=== PATIENT | male | born 1965 | race Caucasian/White ===

== ENCOUNTER 2020-11-16 10:06 | Outpatient (CLI) | payer BC, SELFPAY ==
--- NOTE | ~2020-11-16 | XR_ITS ---
EXAMINATION: XR barium swallow modified DATE: 11/16/2020 11:19 INDICATION: Diverticulitis of the esophagus, acquired TECHNIQUE: Modified barium esophagram was performed by myself to administered fluoroscopy, in conjun ction with speech pathologist who administered barium in varying consistencies as per speech patholog ist documentation. This was recorded on tape. A single fluoroscopic spot image was recorded. The DAP for this procedure was 1.464 Gycm2. Fluoroscopy exposure time was 2 minutes. FINDINGS: Oral stage: Adequate function. Pharyngeal phase: Adequate function. Laryngeal penetration: None. Aspiration: None. Laryngeal sensitivity: Present. IMPRESSION: Normal modified barium swallow. Please refer to speech pathologist findings and specific feeding recommendations. Reviewed, dictated and finalized at location A.
--- NOTE | 2020-11-18 08:38 | STOPEVAL ---
NOVEMBER 16, 2020 MODIFIED BARIUM SWALLOW EVALUATION: Thank you for referring Mello Herbert to [facility]. Dr Rishabh PINTO Fax #: [phone] Outpatient Past Medical History Past Medical History Source of Past Medical History Patient Gastrointestinal History Hx Crohn's Disease Yes Modified Barium Swallow Evaluation Recent Swallowing History Reports Dysphagia Yes: dry & stringy foods get caught Onset of Dysphagia 2 years ago History of Dysphagia No History of Pneumonia No Reported Difficult Consistencies Solids Intake Method Prior to Swallow Oral Evaluation Diet Prior to Swallow Evaluation Regular, Level 7 Liquid Consistency Prior to Swallow Thin (0) Evaluation Consistency Solid Consistency Method of Presentation Spoon Oral Preparatory Symptoms None Oral Phase Symptoms None Pharyngeal Phase Symptoms Within Functional Limits, Laryngeal Penetration Severity of Vallecular Residue None - 0% No Residue Severity of Pyriform Sinus Residue None - 0% No Residue 8 Point Laryngeal Penetration-Aspiration Material Does Not Enter Airway Scale Cervical/Esophageal Symptoms None Mixed Consistency Method of Presentation Spoon Oral Preparatory Symptoms None Oral Phase Symptoms None Pharyngeal Phase Symptoms None Severity of Vallecular Residue None - 0% No Residue Severity of Pyriform Sinus Residue None - 0% No Residue 8 Point Laryngeal Penetration-Aspiration Material Does Not Enter Airway Scale Cervical/Esophageal Symptoms None Pureed Consistency Method of Presentation Spoon Oral Preparatory Symptoms None Oral Phase Symptoms None Pharyngeal Phase Symptoms None Severity of Vallecular Residue None - 0% No Residue Severity of Pyriform Sinus Residue None - 0% No Residue 8 Point Laryngeal Penetration-Aspiration Material Does Not Enter Airway Scale Cervical/Esophageal Symptoms None Thin Uncontrolled 2 Method of Presentation Straw Oral Preparatory Symptoms None Oral Phase Symptoms None Pharyngeal Phase Symptoms Within Functional Limits, Laryngeal Penetration Severity of Vallecular Residue None - 0% No Residue Severity of Pyriform Sinus Residue None - 0% No Residue 8 Point Laryngeal Penetration-Aspiration Material Enters the Airway, Scale Remains Above Vocal Folds, is Ejected Cervical/Esophageal Symptoms None Thin Uncontrolled 1 Method of Presentation Cup Oral Preparatory Symptoms None Oral Phase Symptoms None Pharyngeal Phase Symptoms Within Functional Limits, Laryngeal Pe
== END 2020-11-16 10:07 | disposition home or self-care (01) ==
PROVIDERS: PCP Family Medicine; Visit Provider Otolaryngology
DX: K22.5 Diverticulum of esophagus, acquired (principal)
CPT/HCPCS: 92611

== ENCOUNTER 2021-01-11 08:04 | Outpatient (CLI) | payer BC, SELFPAY ==
--- NOTE | ~2021-01-11 | MR_ITS ---
EXAMINATION: MR lumbar spine wo con DATE: 01/11/2021 09:01 INDICATION: Lumbago with sciatica. Low back pain, occasional bilateral leg pain and unsteady gait. TECHNIQUE: Magnetic resonance imaging (MRI) of the lumbar spine was performed without intravenous con trast. Sequences included sagittal T2-weighted FSE, sagittal T2-weighted FS FSE, sagittal T1-weighted FSE, and axial T2-weighted FSE. COMPARISON: None FINDINGS: There is straightening of the normal lordosis in the mid to upper lumbar spine. Vertebral body height s are normal. Mild disc desiccation, moderate disc height loss an annular fissure at L5-S1. There wer e mild fibrofatty degenerative endplate changes at both sides of L5-S1. Marrow signal is otherwise no rmal. The conus medullaris terminates at L1. There is normal signal in the caudal spinal cord. There is a 10 x 8 mm fluid signal probably dilated tubular structure extending 3.2 cm craniocaudally along the anterior margin of L2 between the aorta and superior vena cava likely representing either a venou s varix or dilated lymphatic. Paravertebral soft tissues are otherwise unremarkable. The following di sc levels are specifically discussed: T12-L1: The disc does not extend beyond the endplate margin. There is minimal right facet joint osteo arthritis. There is no neural foraminal stenosis. There is no central canal stenosis. L1-L2: Disc is minimally bulging. There is minimal bilateral facet joint osteoarthritis. There is no neural foraminal stenosis. There is no central canal stenosis. L2-L3: Disc is minimally bulging. There is mild bilateral facet joint osteoarthritis. There is no christian ral foraminal stenosis. There is no central canal stenosis. L3-L4: Disc is mildly bulging. There is mild bilateral facet joint osteoarthritis. There is mild bila teral neural foraminal stenosis. There is minimal central canal stenosis. L4-L5: Disc is mildly bulging. There is mild bilateral facet joint osteoarthritis. There is mild bila teral neural foraminal stenosis. There is minimal central canal stenosis with mild narrowing of the l eft and right lateral recesses. L5-S1: Annular fissure with broad-based disc extrusion extending from foraminal zone to foraminal zon e with disc material extending couple millimeters cephalad and caudal to the level of the endplates. There is mild to moderate bilateral facet joint osteoarthritis. There is moderate bilateral neural fo raminal stenosis. There is mild central canal stenosis. There is also mild narrowing of the left and right lateral recesses with mass effect upon the traversing bilateral S1 nerve roots. IMPRESSION: 1. Moderate spondylosis with annular fissure and disc extrusion at L5-S1 and minimal to mild spondylo sis in the more cephalad lumbar spine. Reviewed, dictated and finalized at location A. IMPRESSION: 1. Moderate spondylosis with annular fissure and disc extrusion at L5-S1 and mi nimal to mild spondylosis in the more cephalad lumbar spine.
--- NOTE | ~2021-01-11 | MR_ITS ---
EXAMINATION: MR cervical spine wo con DATE: 01/11/2021 08:58 INDICATION: Cervicalgia TECHNIQUE: Magnetic resonance imaging (MRI) of the cervical spine was performed without intravenous c ontrast. Sequences included sagittal T2-weighted FSE, sagittal T2-weighted FS FSE, sagittal T1-weight ed FSE, axial MERGE and axial T2-weighted FSE. COMPARISON: None FINDINGS: Bone alignment is normal. Vertebral body heights are normal. Bone marrow signal intensity is normal . Mild disc height loss with annular fissure and prominent posterior disc extrusion at C6-C7. This re sults in severe central canal stenosis will be further detailed below. The cord is deformed and with subtle increased signal at this level. Remaining cord signal intensity is otherwise normal. The follo wing disc levels are specifically discussed: C2-C3: The disc does not extend beyond the endplate margin. There is no uncovertebral joint osteoarth ritis. There is mild left facet joint osteoarthritis. There is no neural foraminal stenosis. There is no central canal stenosis. C3-C4: The disc does not extend beyond the endplate margin. There is mild bilateral uncovertebral gilberto nt osteoarthritis. There is mild left facet joint osteoarthritis. There is no neural foraminal stenos is. There is no central canal stenosis. C4-C5: The disc does not extend beyond the endplate margin. There is mild left and minimal right unco vertebral joint osteoarthritis. There is moderate bilateral facet joint osteoarthritis. There is mild bilateral neural foraminal stenosis. There is no central canal stenosis. C5-C6: The disc does not extend beyond the endplate margin. There is mild bilateral uncovertebral gilberto nt osteoarthritis. There is mild to moderate right and moderate left facet joint osteoarthritis. Ther e is mild bilateral neural foraminal stenosis. There is no central canal stenosis. C6-C7: Annular fissure and large eccentric to the left disc extrusion which fills the left lateral re cess where it measures 11 in craniocaudal and 7 mm AP. On sagittal imaging the extrusion extends with significantly smaller cross-sectional area across the midline to the right subarticular zone. There is mild left and minimal right uncovertebral joint osteoarthritis. There is mild left and mild to mod erate right facet joint osteoarthritis. There is old right and moderate left neural foraminal stenosi s. There is severe central canal stenosis. C7-T1: The disc does not extend beyond the endplate margin. There is no uncovertebral joint osteoarth ritis. There is mild right and mild to moderate left facet joint osteoarthritis. There is no neural f oraminal stenosis. There is no central canal stenosis. IMPRESSION: 1. Annular fissure and large eccentric to the left disc extrusion at C6-C7 resulting in severe centra l canal stenosis with subtle increased cord fluid signal intensity. Given the cord signal changes and the ongoing neurologic symptoms would recommend urgent neurosurgical consultation. Dr. Mirnada disc ussed these findings with Stephanie reis at 10:25 AM. 2. Otherwise minimal to mild cervical spondylosis. Reviewed, dictated and finalized at location A. IMPRESSION: 1. Annular fissure and large eccentric to the left disc extrusion at C6-C7 resu lting in severe central canal stenosis with subtle increased cord fluid signal intensity. Given the cord signal changes and the ongoing neurologic symptoms wo uld recommend urgent neurosurgical consultation. Dr. Miranda discussed these f indings with Stephanie reis at 10:25 AM. 2. Otherwise minimal to mild cervical spondylosis.
== END 2021-01-11 08:05 ==
PROVIDERS: PCP Family Medicine; Visit Provider Nurse Practitioner Family
DX: M54.40 Lumbago with sciatica, unspecified side (principal); M47.892 Other spondylosis, cervical region; M47.896 Other spondylosis, lumbar region
CPT/HCPCS: 72141; 72148

== ENCOUNTER 2021-05-29 08:54 | Outpatient (RCR) | payer BC, SELFPAY ==
[2021-05-29 13:34] VITALS: BP 137/84; PULSE 82; RESP 16; TEMP 36.6; O2SAT 99
[2021-05-29] MEDS: diphenhydrAMINE HCl CAP 25 MG CAPSULE PO (13:36)
[2021-05-29] MEDS: FAMOTIDINE 20 MG TABLET PO (13:36)
[2021-05-29 14:59] VITALS: BP 116/81; PULSE 85; O2SAT 100
== END 2021-05-29 17:00 ==
LOC: AMCINF 08:54
PROVIDERS: PCP Nurse Practitioner Family; Visit Provider Internal Medicine Hematology & Oncology
DX: U07.1 COVID-19 (principal); I10 Essential (primary) hypertension; J44.9 Chronic obstructive pulmonary disease, unspecified; D84.9 Immunodeficiency, unspecified
CPT/HCPCS: A9270; M0247

== ENCOUNTER 2021-12-14 08:02 | Emergency (ER) | payer BC, SELFPAY ==
--- NOTE | 2021-12-14 08:08 | ED.EAR ---
HPI - Ear Problem General Chief complaint: Ear Stated complaint: ear pain Time Seen by Provider: 12/14/21 08:21 Source: patient and RN notes reviewed Mode of arrival: ambulatory Limitations: no limitations History of Present Illness HPI Narrative: 56-year-old male presents concern for left ear pain. He reports ear pain started yesterday. He went to the dentist yesterday and mentioned the pain to his dentist just in case the pain could be originating from his teeth, his dentist says there is no issue with his teeth. He reports he has been having some sinus pressure, reports that has been going on only a couple of days. He denies fever, body aches, chills, sweats. He denies drainage from the ear. He denies cough, shortness of breath. He denies known sick contacts. He reports he takes Singulair for allergies, he has taken Tylenol for his recent symptoms. MD Complaint: ear pain Related Data Home Medications Medication Instructions Recorded Confirmed cholecalciferol (vitamin D3) 50 50 mcg PO DAILY 11/02/19 12/14/21 mcg (2,000 unit) capsule adalimumab 40 mg/0.8 mL 40 mg subcut . Every 2 weeks 07/20/20 12/14/21 subcutaneous syringe kit (Humira) lansoprazole 15 mg capsule,delayed 30 mg PO DAILY 11/02/20 12/14/21 release (Prevacid) Allergies Allergy/AdvReac Type Severity Reaction Status Date / Time latex Allergy Mild unknown Verified 12/14/21 08:09 Review of Systems Review of Systems: CONSTITUTIONAL: Denies malaise, chills, sweats, or fever. EYES: Denies visual changes, redness, or discharge. ENT: Reports rhinorrhea, congestion. Denies sinus pain, and sore throat. Reports left ear pain CARDIOVASCULAR: Denies chest pain, palpitations, or edema. RESPIRATORY: Denies cough. Denies dyspnea. GASTROINTESTINAL: Denies abdominal pain, nausea, vomiting, diarrhea SKIN: Denies rash or itching. MUSCULOSKELETAL: Denies myalgia. NEUROLOGIC: Denies headache. All systems reviewed & are unremarkable except as noted in HPI and below PMFSH Past Medical History Medical History (Updated 12/14/21 @ 08:29 by Kimber Baird NP) Acne vulgaris Acute bronchitis Altered gait BMI 26.0-26.9,adult BMI 29.0-29.9,adult BMI 30.0-30.9,adult Chronic anxiety COVID-19 (05/24/21) Crohn's disease EGD and colonoscopy on 12/30/2020 Dysphagia Encounter for prostate cancer screening Essential (primary) hypertension GERD (gastroesophageal reflux disease) Hypogonadism male Insomnia Iron deficiency anemia, unspecified Lumbago with sciatica Lumbago without sciatica Male erectile dysfunction, unspecified Mild intermittent asthma in adult without complication Obesity (BMI 30.0-34.9) Radiculitis, cervical C6-C7 cervical disc replacement on 02/16/2021 Recurrent canker sores Tinea cruris UTI (urinary tract infection) Vitamin B12 deficiency anemia Vitamin D insufficiency Family History Family History Father Family history of chronic obstructive pulmonary disease, Onset Age: 78 Mother Family history of chronic obstructive pulmonary disease, Onset Age: 78 Grandparent Family history of chronic obstructive pulmonary disease, Onset Age: 65 Sibling Family history of lung cancer, Onset Age: 42 Social History Social History Smoking status: Never smoker Alcohol intake: never Substance use: never Substance use type: does not use Comments At time of signature, agree with nursing past medical, surgical, social and family history. There is no relevant family history pertinent to the presenting complaint Exam Narrative: GENERAL: Well-appearing, well-nourished, and in no acute distress. HEAD: Normocephalic EYES: PERRLA, conjunctivae clear ENT: Nares clear, left-sided turbinates edematous, clear discharge. Mucous membranes moist. TM pearly nieves with dull light reflex on the left, sharp li
[2021-12-14 08:11] VITALS: BP 156/101; PULSE 70; RESP 16; TEMP 36.1; O2SAT 100
== END 2021-12-14 08:40 | disposition home or self-care (01) ==
PROVIDERS: Emergency Provider Nurse Practitioner; PCP Family Medicine
DX: H69.92 Unspecified Eustachian tube disorder, left ear (principal); K50.90 Crohn's disease, unspecified, without complications; I10 Essential (primary) hypertension; K21.9 Gastro-esophageal reflux disease without esophagitis; E55.9 Vitamin D deficiency, unspecified; J45.909 Unspecified asthma, uncomplicated; Z86.16 Personal history of COVID-19; E53.8 Deficiency of other specified B group vitamins; D50.9 Iron deficiency anemia, unspecified
CPT/HCPCS: 99213; G0463

== ENCOUNTER 2024-05-11 09:06 | Emergency (ER) | payer BC, SELFPAY ==
--- NOTE | ~2024-05-11 | XR_ITS ---
XR hand RT min 3V Ordering provider: Jason Hernandez APRN History: . puncture wound X YESTERDAT 4TH METACARPAL AREA . Comparison: None. FINDINGS: BONES: No acute fracture or dislocation. JOINT SPACES: Normal. SOFT TISSUES: Normal. IMPRESSION: No acute osseous abnormality right hand. Reviewed, dictated and finalized at location A. RCALENDER OPERATOR HELPER
[2024-05-11 09:42] VITALS: BP 188/98; PULSE 85; RESP 16; TEMP 37.1; O2SAT 98
[2024-05-11 09:57] VITALS: BP 168/103; PULSE 77; RESP 15; O2SAT 96
--- NOTE | 2024-05-11 10:46 | ED.WOUNDLAC ---
HPI - Wound/Laceration General Chief Complaint: Wound/Laceration Stated Complaint: nail puncture with redness right hand Time Seen by Provider: 05/11/24 10:18 History of Present Illness HPI narrative: 58 y/o male presents with right hand pain that started this morning. patient states he was working on rehabbing a home and a nail punctured his right hand. patient cleaned it out but states he woke up this morning with redness to the area and increased pain. patient went to and was sent to the ER for further evaluation r/t red streaks up the arm. patient has crohns and is immunocompromised r/t treatment. patient denies fevers. patient is left hand dominant. no other complaints. Onset (ago): day(s) (1) Location: other (right hand) Extremity Location: Right: hand Related Data Home Medications ?Medication ?Instructions ?Recorded ?Confirmed ?Last Taken ?Type valacyclovir 1 gram tablet 1,000 mg PO TID 01/26/23 12/16/23 Unknown History (Valtrex) omeprazole magnesium 20 mg 40 mg PO . q.a.m. 12/16/23 12/16/23 Unknown History tablet,delayed release Allergies Allergy/AdvReac Type Severity Reaction Status Date / Time latex Allergy Mild unknown Verified 05/11/24 09:57 Review of Systems Review of Systems: All systems reviewed & are unremarkable except as noted in HPI and below Integumentary/Breasts: Skin/Breast: Reports erythema PMFSH Past Medical History Medical History (Updated 05/11/24 @ 12:25 by Jason Hernandez APRN) Hyperglycemia Mixed hyperlipidemia cholesterol 139, HDL 45, triglycerides 265, LDL 64th ratio of 3.1 on 12/09/2023. Acute sinusitis, unspecified BMI 27.0-27.9,adult Fatigue Contusion of leg, right Herpes zoster (01/25/23) left upper face treated by flamer sealer with Valtrex with no ocular involvement on 01/26/2023. Renal insufficiency (11/13/22) BUN 16 with creatinine 1.50 with GFR 54 on 11/13/2022. BUN 15, creatinine 1.36 with GFR 60 on 03/25/2023. 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 Normal vitamin B12 1270 with folic acid 13.8 on 03/25/2023. Overweight (BMI 25.0-29.9) BMI 28.0-28.9,adult Prepatellar bursitis of right knee (~01/15/22) hospitalized 01/24 - 01/27/2022 Knee pain, acute BMI 30.0-30.9,adult Obesity (BMI 30.0-34.9) Acute bronchitis COVID-19 (05/24/21) BMI 29.0-29.9,adult Lumbago without sciatica Altered gait Recurrent canker sores Radiculitis, cervical C6-C7 cervical disc replacement on 02/16/2021 Lumbago with sciatica BMI 26.0-26.9,adult Mild intermittent asthma in adult without complication Tinea cruris UTI (urinary tract infection) Acne vulgaris Encounter for prostate cancer screening PSA 0.42 on 05/05/2022. Vitamin D insufficiency level slightly low at 29 on 05/05/2022. Level normal at 35 on 03/25/2023. Vitamin B12 deficiency anemia level normal at 826 on 05/05/2022. Level normal 1270 with hemoglobin 16.4 and folic acid 13.8 on 03/25/2023. Level normal at 622 with hemoglobin 18.1 on 09/11/2023. Dysphagia Insomnia Iron deficiency anemia, unspecified Iron 106 with 37% saturation and ferritin 90 with hemoglobin 14.9 05/05/2022. Iron 105 with 27% saturation and ferritin low at 16 with hemoglobin 16.4 on 03/25/2023. Hemoglobin elevated at 18.1 with iron 102 with 28% saturation and ferritin 64 on 09/11/2023. Chronic anxiety Male erectile dysfunction, unspecified GERD (gastroesophageal reflux disease) Hypogonadism male total testosterone 729 with free testosterone 223 on 05/05/2022. Testosterone 1194 with free testosterone elevated at 362.7 on 03/25/2023. Crohn's disease EGD and colonoscopy on 12/30/2020. Normal colonoscopy 09/28/2022. History of anastomosis. Essential (primary) hypertension Family History Family History Father Family history of chronic obstructive pulmonary disease, Onset Age: 78 Mother Family history of chronic obstructive pulmonary disease, Onset Age: 78 Grandparent Family history of chronic obstructive pulmonary disease, Onset Age: 65 Sibling Family history of lung cancer, Onset Age: 42 Social History Social History Smoking status: Never smoker Alcohol intake: never Substance use: never Substance use type: does not use Lack of Transportation: No Current Housing: Decline to Answer Concerned About Future Housing: Decline to Answer Difficulty Paying Gas/Electric Bills: Decline to Answer Difficulty Paying for Meds: Decline to Answer Currently Unemployed: Decline to Answer Education: Decline to Answer Difficulty w/ Childcare or Family Care: Decline to Answer Exam Const: General: healthy appearing HENMT: Head: normal to inspection Eyes: Conjunctivae: conjunctivae normal Neck: Neck: normal visual inspection Chest: Chest palpation & inspection: normal inspection of the chest Resp: Effort & Inspection: normal respiratory effort Cardio: Rate: regular rate GI: GI Palp: Yes Soft to palpation Back/Spine/Pelvis: Back: no CVA tenderness Skin: Rashes: no rashes (redness with some streaks up the arm) Wounds: wounds noted (small puncture wound at mcp to right 4th digit) Neuro: General: patient oriented x3 Extrem: Other: redness to right dorsal aspect of right hand Psych: Affect: normal affect Course Course Emergency Course: will check basic labs, iv rocephin and right hand x-ray Reevaluation(s) Reevaluation #1: patient states pain is better. will send home on oral abx and pain medication Date: 05/11/24 Time: 12:22 Vital Signs Vital signs: Vital Signs Temperature 37.1 C 05/11/24 09:42 Pulse Rate 85 05/11/24 09:42 Respiratory Rate 16 05/11/24 09:42 Blood Pressure 188/98 H 05/11/24 09:42 Pulse Oximetry 98 05/11/24 09:42 Temperature 37.1 C 05/11/24 09:42 Pulse Rate 80 05/11/24 11:20 Respiratory Rate 15 05/11/24 11:20 Blood Pressure 164/104 H 05/11/24 11:20 Pulse Oximetry 96 05/11/24 11:20 MDM - Wound/Laceration MDM Narrative Medical decision making narrative: patient labs are wnl. patient given iv rocephin. will send home on oral bactrim, pain medication and close f/u with pcp Differential Diagnosis Differential diagnosis: Likely abscess and other (cellulitis vs osteo vs nec fasciatis ) Medical Records Medical records narrative: Spoke with patient's PCP. Dr. Santos is agreeable with plan. will discharge home on doxycycline and norco 10 mg. Lab Data 05/11/24 11:17 05/11/24 11:17 Labs: Lab Results 05/11/24 Range/Units 11:17 WBC 10.8 H (4.5-10.0) K/mm3 RBC 5.27 (4.6-6.20) M/mm3 Hgb 15.5 (14.0-18.0) g/dL Hct 47.9 (42.0-52.0) % MCV 90.9 (80-100) fl MCH 29.4 (26-34) pg MCHC 32.4 (32-36) g/dl RDW 13.2 (11.5-14.5) % Plt Count 209 (150-375) k/mm3 MPV 9.5 (7.4-10.4) fl Immature Gran % (Auto) 0.7 H (0-0.5) % Neut % (Auto) 76.1 H (45.5-73.1) % Lymph % (Auto) 13.1 L (18.3-44.2) % [place] % (Auto) 8.6 H (2.6-8.5) % Eos % (Auto) 1.0 (0-4.4) % Baso % (Auto) 0.5 (0.2-1.2) % Lymph # (Auto) 1.41 (0.9-3.2) K/mm3 [place] # (Auto) 0.9 H (0.1-0.6) K/mm3 Eos # (Auto) 0.1 (0-0.3) K/mm3 Baso # (Auto) 0.1 (0.0-0.1) K/mm3 Abs Immat Gran (auto) 0.08 H (0.00-0.031) K/mm3 Absolute Neuts (auto) 8.2 H (1.3-6.7) K/mm3 Absolute Nucleated RBC 0.000 (0.0-0.012) K/mm3 Nucleated RBC % 0.0 (0.0-0.2) % Sodium 140 (137-145) mmol/L Potassium 3.6 (3.4-5.0) mmol/L Chloride 104 (98-107) mmol/L Carbon Dioxide 33 H (22-30) mmol/L Anion Gap 3 L (4-12) mmol/L BUN 14 (9-20) mg/dL Creatinine 1.20 (0.7-1.3) mg/dL Estim Creat Clear Calc 69 ml/min Estimated GFR > 60 (59 - ) Glucose 88 (65-110) mg/dL Calcium 8.5 (8.4-10.2) mg/dL Total Bilirubin 1.4 H (0.2-1.3) mg/dL AST 36 (17-59) U/L ALT 22 (6-50) U/L Alkaline Phosphatase 78 (38-126) U/L Total Protein 7.0 (6.3-8.2) g/dL Albumin 4.2 (3.5-5.1) g/dL Imaging Data Radiologist's impression: normal right hand Discharge Plan Discharge Clinical Impression: Cellulitis of hand, right, Puncture wound of hand, right Patient Disposition: Home, Self-Care Condition: Stable Instructions: Antibiotic Form, Cellulitis (ED) Additional Instructions: TAKE MEDICATIONS PRESCRIBED RETURN FOR WORSENING SYMPTOMS CALL PRIMARY CARE DOCTOR TODAY TO SCHEDULE CLOSE FOLLOW-UP Patient Language: German Prescriptions: New doxycycline hyclate 100 mg capsule 100 mg PO Q12H Qty: 20 0RF hydrocodone-acetaminophen 10-325 mg tablet 1 tablet PO Q4H PRN (Reason: pain) Qty: 12 0RF No Action nystatin 100,000 unit/gram powder 1 applic topical BID Qty: 60 11RF Rx Instructions: apply to skin folds twice daily as needed for yeast mupirocin 2 % ointment 1 applic topical BID Qty: 15 0RF omeprazole magnesium 20 mg tablet,delayed release (DR/EC) 40 mg PO . q.a.m. Patient Comments: [id number] testosterone cypionate [Depo-Testosterone] 200 mg/mL oil 100 mg IM . twice weekly Qty: 12 1RF albuterol sulfate [ProAir HFA] 90 mcg/actuation HFA aerosol inhaler 2 inh inhalation Q4H PRN (Reason: shortness of breath or wheezing) Qty: 8.5 1RF clotrimazole-betamethasone 1-0.05 % cream 1 applic topical BID 14 Days Qty: 30 3RF Rx Instructions: apply to rash in the groin for up to 2 weeks at a time (DME) BD Insulin Syringe 1 mL 25 x 1 syringe See Rx Instructions .Route Qty: 50 0RF Rx Instructions: use with vitamin B12 injection 1 cc every 2 weeks IM (DME) BD Regular Bevel [place] 21 gauge x 1 1/2 needle See Rx Instructions .Route Qty: 25 3RF Rx Instructions: As directed valacyclovir [Valtrex] 1 gram tablet 1,000 mg PO TID Patient Comments: treated by flamer sealer 01/26/2023 with onset on 01/25/2023. montelukast [Singulair] 10 mg tablet 10 mg PO QHS Qty: 30 11RF ondansetron HCl 8 mg tablet 8 mg PO TID PRN (Reason: nausea and vomiting) Qty: 60 11RF diphenoxylate-atropine [Lomotil] 2.5-0.025 mg tablet 1 tablet PO QID PRN (Reason: diarrhea) Qty: 120 5RF alprazolam [Xanax] 1 mg tablet 1 mg PO BID PRN (Reason: anxiety) Qty: 60 5RF tadalafil 20 mg tablet 20 mg PO DAILY PRN (Reason: sexual activity) Qty: 90 1RF Rx Instructions: Administer approximately 30-45min before sexual activity. Do not use more than 1 dose per 24hr [employer] pay with good Rx discount for $47.40 for 90 tablets irbesartan 300 mg tablet 300 mg PO DAILY Qty: 30 11RF amlodipine 5 mg tablet 5 mg PO DAILY Qty: 30 11RF acetaminophen-codeine 300-30 mg tablet 1 tablet PO Q4H PRN (Reason: pain) Qty: 150 5RF zolpidem [Ambien] 10 mg tablet 10 mg PO .qhs PRN (Reason: insomnia) Qty: 30 5RF cyanocobalamin (vitamin B-12) 1,000 mcg/mL solution 1,000 mcg IM . Q 2 weeks Qty: 30 1RF Rx Instructions: [employer] pay with good Rx discount $29.28 Follow-up/Referrals: Tip Armenta MD [Primary Care Provider] - Time of Disposition: 12:31
[2024-05-11] MEDS: MORPHINE SULFATE (*CRX) 4 MG/ML INJ IV PUSH (11:13)
[2024-05-11] MEDS: cefTRIAXone 2 GM/NS 100 ML 2 GM/100 ML BAG IVPB (11:18)
[2024-05-11 11:20] VITALS: BP 164/104; PULSE 80; RESP 15; O2SAT 96
[2024-05-11 11:24] LABS: Basophils Absolute Auto 0.1 K/mm3 (0.0-0.1); Basophils Percent Auto 0.5 % (0.2-1.2); Eosinophils Absolute Auto 0.1 K/mm3 (0-0.3); Hematocrit 47.9 % (42.0-52.0); Hemoglobin 15.5 g/dL (14.0-18.0); Immature Granulocyte Absolute 0.08 K/mm3 (0.00-0.031); Immature Granulocyte Percent A 0.7 % (0-0.5); Lymphocytes Absolute Auto 1.41 K/mm3 (0.9-3.2); Lymphocytes Percent Auto 13.1 % (18.3-44.2); Mean Corpuscular HGB Conc 32.4 g/dl (32-36); Mean Corpuscular Hemoglobin 29.4 pg (26-34); Mean Corpuscular Volume 90.9 fl (80-100); Mean Platelet Volume 9.5 fl (7.4-10.4); Monocytes Absolute Auto 0.9 K/mm3 (0.1-0.6); Monocytes Percent Auto 8.6 % (2.6-8.5); Neutrophils Absolute Auto 8.2 K/mm3 (1.3-6.7); Neutrophils Percent Auto 76.1 % (45.5-73.1); Platelet Count Result 209 k/mm3 (150-375); Red Blood Count 5.27 M/mm3 (4.6-6.20); Red Cell Distribution Width 13.2 % (11.5-14.5); White Blood Count 10.8 K/mm3 (4.5-10.0)
[2024-05-11 11:38] LABS: Alanine Aminotransferase 22 U/L (6-50); Albumin Level 4.2 g/dL (3.5-5.1); Alkaline Phosphatase 78 U/L (38-126); Anion Gap 3 mmol/L (4-12); Aspartate Amino Transferase 36 U/L (17-59); Bilirubin,Total 1.4 mg/dL (0.2-1.3); Blood Urea Nitrogen 14 mg/dL (9-20); Calcium 8.5 mg/dL (8.4-10.2); Carbon Dioxide 33 mmol/L (22-30); Chloride 104 mmol/L (98-107); Estimated CRCL calculation 69 ml/min; Estimated Glomerular Filt Rate > 60; Glucose 88 mg/dL (65-110); Potassium 3.6 mmol/L (3.4-5.0); Sodium 140 mmol/L (137-145)
[2024-05-11] MEDS: HYDROcodone/acetaminophen (*CRX) 10-325 MG TABLET 1 TAB PO (11:45)
[2024-05-11 12:37] VITALS: BP 156/91; PULSE 76; RESP 16; O2SAT 98
--- OUTSIDE RECORDS SUMMARY | 2024-05-18 22:11 | XMS_ITS | Encounter Summary ---
Author Organization [facility] Address [address] [facility] [address] [place] [address] Phone Care Team Providers Care Biztalk Consultant Name Role Phone Tip Armenta MD Primary Care Provider [phone] Eleanor Ramon MD Unavailable [phone] Encounter Details Date Type Department Care Team (Late st Contact Info) Description 05/06/2024 8:30 AM OCCUPATIONAL THERAPY ASSIST Office Visit [facility] Gastroenterology [address] [facility] [address] [place] [address] Nikolay Boucher MD [address] [place] [address] Crohn's disease of both small and large intestine with intestinal obstruction (HCC) (Primary Dx); High risk medications (not anticoagulants) long-term use Social History Tobacco Use Types Packs/Day Years Used Date Smoking Tobacco: Never Smokeless Tobacco: Never AUDIT-C Answer Date Recorded Q1: How often do you have a drink containing alcohol? Never 11/05/2023 Q2: How many drinks containi ng alcohol do you have on a typical day when you are drinking? Patient does not drink Q3: How often do you have si x or more drinks on one occasion? Never 11/05/2023 Personal Safety Answer Date Recorded Have you ever been in or are you currently in a harmful physical or emotional relationship or is someone making you feel afraid or unsafe? Denies 09/28/2022 Sex and Gender Information Value Date Recorded Sex Assigned at Not on file Legal Sex Male 1:20 AM OCCUPATIONAL THERAPY ASSIST Gender Identity Not on file Sexual Orientation Not on file documented as of this encounter Last Filed Vital Signs Vital Sign Reading Time Taken Comments Blood Pressure 155/92 05/06/2024 8:52 AM OCCUPATIONAL THERAPY ASSIST Pulse 89 05/06/2024 8:52 AM OCCUPATIONAL THERAPY ASSIST Temperature 36.6 ??C (97.9 ??F) 05/06/2024 8:52 AM CS T Respiratory Rate - - Oxygen Saturation 99% 05/06/2024 8:52 AM OCCUPATIONAL THERAPY ASSIST Inhaled Oxygen Concentration - - Weight 95.7 kg (211 lb) 05/06/2024 8:52 AM OCCUPATIONAL THERAPY ASSIST Height 188 cm (6' 2 ) 05/06/2024 8:52 AM OCCUPATIONAL THERAPY ASSIST Body Mass Index 27.09 05/06/2024 8:52 AM OCCUPATIONAL THERAPY ASSIST documented in this encounter Progress Notes * Nikolay Boucher MD - 05/06/2024 8:30 AM CST Images from the original note were not included. [facility]PART[facility] OF MEDIC[facility] DIVISION OF GASTROENTEROLOGY Clinic Address: [address] [place] [address], [address] [place] [address] Mailing Address: [facility] [place], [place] [address] [place] [address] NAME: Mello Herbert : 1965 DOS: 05/06/2024 Primary Care Physician: Tip Armenta MD Chief complaint: crohn's HPI Mr. Herbert is a 58 y.o. male with stricturing ileocolonic Crohn's is here for follow up. Doing well. No change with adalimumab biosimilar. Diarrhea is baseline. Abdominal discomfort occasionally, unchanged for years. Patient Active Problem List Diagnosis Date Noted Healthcare maintenance 04/17/2023 Immunizations: Influenza annual Pneumococcus (Prevnar 20 x1 or Prevnar 13 followed by Pneumovax 8 weeks later, then Pneumovax in 5 years and again at age 64) Zoster HBV Covid Cervical cancer screening: routine follow up with bread racker Skin cancer screening: consider referral to dermatology to discuss screening strategy Bone health: DEXA: at diagnosis. Check vitamin D CRC screening: repeat q 2-3 years History of Crohn's disease Cellulitis 01/25/2022 Infection of right prepatellar bursa Prepatellar bursitis 01/24/2022 Stage 3a chronic kidney disease (HCC) 01/24/2022 Chronic hypertension 02/13/2021 Risk factors for obstructive sleep apnea 02/13/2021 Cervical disc disorder with myelopathy of mid-cervical region 02/09/2021 Added automatically from request for surgery [id number] Chronic diarrhea 07/15/2020 High risk medications (not anticoagulants) long-term use 07/15/2020 Vitamin B12 deficiency 08/18/2018 Overweight with body mass index (BMI) 25.0-29.9 12/20/2016 Abnormal level of blood mineral 10/12/2016 Chronic fatigue 10/12/2016 Cramp and spasm 10/12/2016 Crohn's disease of large intestine with other complication (HCC) 10/12/2016 Postsurgical malabsorption, not elsewhere classified 10/12/2016 Iron deficiency anemia 02/17/2015 Erythrocytosis 12/07/2014 PVT (portal vein thrombosis) 12/07/2014 Vitamin D deficiency 11/30/2014 Abdominal pain 12/15/2013 Mouth ulceration 12/15/2013 Nephrolithiasis 07/23/2013 Inguinal pain 07/23/2013 Arthralgia 09/25/2012 High risk medication use 07/10/2012 Hernia of anterior abdominal wall 03/13/2012 Crohn's disease of both small and large intestine (HCC) 08/16/2010 Year of diagnosis: 1989. Year symptoms began: 1989. Phenotype: Stricturing (B2) without perianal disease. Distribution: ileocolonic (L3) or ileal? without upper GI disease (L4). Extraintestinal manifestations: none. Complications: SBO. Prior surgeries: . 1989 ICR, meckels resection 2006 re-do ICR for anastomotic stricture ([facility]) 2010 re-do ICR for anastomotic stricture (Silvia) Prior treatments: prednisone, 6MP, infliximab. Current treatment: Humira. 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 Took 5 hours. Can't remember what meds Prednisone 2005 re-do ICR for anastomotic stricture ([facility]utch) 2009 re-do ICR for anastomotic stricture (Silvia) 2020 and demonstrated mucosal remission he patient has been treated with 6-MP (without response) methotrexate (without response) Remicade (with initial response, but discontinued in the context of severe pneumonia), and most recently on Humira. 09/28/2022 Colonoscopy mucosal remission Current Outpatient Medications: acetaminophen-codeine (TYLENOL with CODEINE #3) 300-30 mg per tablet, TAKE 1 TABLET BY MOUTH EVERY 4 HOURS NEEDED FOR PAIN, Disp: , Rfl: ALPRAZolam (XANAX) 1 mg tablet, TK 1/2 TO 1 T PO BID PRF ANXIETY, Disp: , Rfl: 5 amitriptyline (ELAVIL) 10 mg tablet, Take 1 tablet (10 mg total) by mouth nightly, Disp: , Rfl: amLODIPine (NORVASC) 5 mg tablet, Take 1 tablet (5 mg total) by mouth every morning, Disp: , Rfl: BD SAFETYGLIDE SYRINGE 3 mL 23 x 1 syringe, U UTD, Disp: , Rfl: 5 cholecalciferol (VITAMIN D-3) 50,000 unit capsule, Take 1 capsule (50,000 Units total) by mouth, Disp: , Rfl: CIALIS 20 mg tablet, TK 1 T PO QD PRN, Disp: , Rfl: 5 cyanocobalamin (Vitamin B-12) 1,000 mcg/mL injection, INJECT 1 ML Q 2 WEEKS UTD, Disp: , Rfl: 4 diphenoxylate-atropine (LOMOTIL) 2.5-0.025 mg per tablet, Take 1 tablet by mouth 3 (three) times a day as needed, Disp: , Rfl: 5 folic acid (FOLVITE) 1 mg tablet, Take 1 tablet (1 mg total) by mouth every morning, Disp: , Rfl: 3 hydroCHLOROthiazide (HYDRODIURIL) 25 mg tablet, Take 1 tablet (25 mg total) by mouth as needed, Disp: , Rfl: hyoscyamine (LEVSIN) 0.125 mg tablet, TAKE 1 TABLET(0.125 MG) BY MOUTH EVERY 6 HOURS NEEDED FOR CRAMPING OR DIARRHEA/ SPASMS, Disp: 120 tablet, Rfl: 2 Hyrimoz,CF, Pen 40 mg/0.4 mL pen injector, INJECT 1 PEN UNDER THE SKIN EVERY 14 DAYS, Disp: 0.8 mL,Rfl: 2 irbesartan (AVAPRO) 300 mg tablet, Take 1 tablet (300 mg total) by mouth every morning, Disp: , Rfl: lansoprazole (PREVACID) 15 mg capsule, Take 1 capsule (15 mg total) by mouth 2 (two) times a day, Disp: , Rfl: magnesium oxide,aspartate,citr 400 mg magnesium capsule, Take 1 capsule by mouth as needed , Disp: , Rfl: montelukast (SINGULAIR) 10 mg tablet, Take 1 tablet (10 mg total) by mouth as needed, Disp: , Rfl: 1 nystatin 100,000 unit/mL suspension, SWISH AND SWALLOW 5 ML BY MOUTH TWICE DAILY FOR 14 DAYS, Disp:140 mL, Rfl: 0 ondansetron (ZOFRAN) 8 mg tablet, Take 1 tablet (8 mg total) by mouth as needed, Disp: , Rfl: 5 sulfamethoxazole-trimethoprim (BACTRIM DS) 800-160 mg per tablet, Take 1 tablet by mouth nightly atbedtime, Disp: , Rfl: sulfuric acid-sulfonat. phenoL (DEBACTEROL) 30-50 % swab swab, For external use only; avoid contactwith eyes. Prior to application/treatment, the ulcerated mucosal area should be thoroughly dried. After drying, apply solution coated applicator swab directly to the ulcerated area (most patients experience a brief stinging sensation immediately) and hold the applicator in contact with the ulcer for 5 to 10 seconds using a rolling motion to completely cover the entire ulcer bed and rim. Thoroughly rinse out the mouth with water and spit out the rinse water. The stinging sensation and ulcer painwill subside almost immediately after the rinse., Disp: 24 each, Rfl: 0 testosterone cypionate (DEPO-TESTOTERONE) 200 mg/mL injection, INJ 1 ML IM Q WK, Disp: , Rfl: 5 zolpidem (AMBIEN) 10 mg tablet, Take 1 tablet (10 mg total) by mouth nightly as needed, Disp: , Rfl: 5 cyclobenzaprine (FLEXERIL) 5 mg tablet, Take 1 tablet (5 mg total) by mouth 3 (three) times a day as needed for muscle spasms, Disp: 90 tablet, Rfl: 0 gabapentin (NEURONTIN) 300 mg capsule, Take 1 capsule (300 mg total) by mouth 3 (three) times a day, Disp: 270 capsule, Rfl: 0 HYDROcodone-acetaminophen (NORCO) 7.5-325 mg per tablet, Take 1 tablet by mouth every 6 (six) hoursas needed for pain (Patient not taking: Reported on 05/06/2024), Disp: , Rfl: nebivoloL (BYSTOLIC) 5 mg tablet, Take 1 tablet (5 mg total) by mouth daily (Patient not taking: Reported on 05/06/2024), Disp: , Rfl: polyethylene glycol (GoLYTELY) 236-22.74-6.74 -5.86 gram solution, Drink 240 ml the day before yourColonoscopy - PLEASE FOLLOW PREP INSTRUCTIONS GIVEN BY DR MCLEAN OFFICE (Patient not taking: Reported on 05/06/2024), Disp: 240 mL, Rfl: 0 Allergies Allergen Reactions Latex Rash ROS As outlined in HPI. All other systems negative. Physical Exam Vital Signs BP 155/92 Pulse 89 Temp 36.6 ??C (97.9 ??F) Ht 188 cm (6' 2 ) Wt 95.7 kg (211 lb) SpO2 99% BMI 27.09 kg/m?? Body mass index is 27.09 kg/m??. Wt Readings from Last 10 Encounters: 05/06/24 95.7 kg (211 lb) 01/15/24 96.3 kg (212 lb 4.9 oz) 11/05/23 97.1 kg (214 lb) 04/04/23 100.5 kg (221 lb 9.6 oz) 12/07/22 97.5 kg (215 lb) 09/28/22 102.1 kg (225 lb) 07/09/22 102.1 kg (225 lb) 03/28/22 100.2 kg (220 lb 12.8 oz) 03/14/22 99.8 kg (220 lb) 02/21/22 99.3 kg (219 lb) [place] body weight: 82.2 kg (181 lb 3.5 oz) Adjusted ideal body weight: 87.6 kg (193 lb 2.1 oz) General: well appearing Eyes: no scleral icterus Mouth: moist mucous membranes Neck: supple, no lymphadenopathy CV: regular rate and rhythm, no murmurs Pulm: breathing comfortably on room air, clear to auscultation bilaterally Abd: soft, nontender, nondistended, normal bowel sounds Ext: warm and well perfused, no clubbing or cyanosis Neuro: No focal deficits, alert and awake Skin: Warm, dry, no rashes Psych: Normal mood and affect Results: I have reviewed labs. Labs Lab Results Component Value Date WBC 10.1 (H) 11/05/2023 HGB 16.7 11/05/2023 HCT 52.6 (H) 11/05/2023 MCV 94.1 11/05/2023 LABPLAT 213 11/05/2023 Lab Results Component Value Date SODIUM 137 11/05/2023 POTASSIUM 4.3 11/05/2023 CHLORIDE 100 11/05/2023 CO2 29 11/05/2023 BUNSER 15 11/05/2023 CREATININE 1.30 11/05/2023 GLUCOSE 115 11/05/2023 CALCIUM 9.3 11/05/2023 Lab Results Component Value Date PROT 7.9 11/05/2023 ALBUMIN 4.4 11/05/2023 BILITOT 0.9 11/05/2023 ALKPHOS 114 11/05/2023 AST 26 11/05/2023 ALT 27 11/05/2023 CRP Date Value Ref Range Status 11/05/2023 <3.0 <=10.0 mg/L Final 01/25/2022 21.2 (H) <=10.0 mg/L Final Comment: Testing performed by: [address] [id number] C-RP Date Value Ref Range Status 03/13/2023 3.4 <8.0 mg/L Final Erythrocyte sedimentation rate Date Value Ref Range Status 01/25/2022 14 1 - 20 mm/hr Final Comment: Testing performed by: [address] [id number] 01/20/2022 9 1 - 20 mm/hr Final Comment: Testing performed by: [address] [id number] Imaging None Endoscopy None Assessment and Plan: Problem List Items Addressed This Visit Crohn's disease of both small and large intestine (HCC) - Primary Remains in clinical remission on adalimumab. Fortunately no issues with the biosimilar. Continue indefinitely. Repeat colonoscopy next year for screening and close monitoring. He cannot afford to lose any more small bowel as this may lead him dependent on TPN or IVF. RTC 6 mos. High risk medications (not anticoagulants) long-term use All immunosuppressants increase the risk of infection so we recommend the patient get all availablevaccinations, including the pneumococcal vaccine, covid19 and annual influenza vaccine. We screen for TB and HBV prior to initiating an anti-TNF. We monitor CBC and HFP q 3 months for cytopenias and h epatotoxicity. Anti-TNFs may increase the risk for malignancy. The patient should get all age-appropriate cancer screening and in addition should follow with a state highway police officer for skin cancer screening. There may be a small risk of heart failure so any new HF symptoms would prompt an evaluation and likely discontinuation of therapy. Nikolay Boucher MD Dye Range Feeder My total encounter time on 05/06/2024 was 30 minutes which was spent in the activities documented in the note. This includes time spent prior to the visit and after the visit in direct care of the patient. This time does not include time spent in any separately reportable services. PATIONAL THERAPY ASSIST documented in this encounter Miscellaneous Notes * Assessment & Plan Note - Nikolay Boucher MD - 05/06/2024 9:25 PM OCCUPATIONAL THERAPY ASSIST Associated Problem(s): Crohn's disease of both small and large intestine (HCC) Remains in clinical remission on adalimumab. Fortunately no issues with the biosimilar. Continue indefinitely. Repeat colonoscopy next year for screening and close monitoring. He cannot afford to lose any more small bowel as this may lead him dependent on TPN or IVF. RTC 6 mos. PATIONAL THERAPY ASSIST * Assessment & Plan Note - Nikolay Boucher MD - 05/06/2024 9:23 PM OCCUPATIONAL THERAPY ASSIST Associated Problem(s): High risk medications (not anticoagulants) long-term use All immunosuppressants increase the risk of infection so we recommend the patient get all availablevaccinations, including the pneumococcal vaccine, covid19 and annual influenza vaccine. We screen for TB and HBV prior to initiating an anti-TNF. We monitor CBC and HFP q 3 months for cytopenias and h epatotoxicity. Anti-TNFs may increase the risk for malignancy. The patient should get all age-appropriate cancer screening and in addition should follow with a state highway police officer for skin cancer screening. There may be a small risk of heart failure so any new HF symptoms would prompt an evaluation and likely discontinuation of therapy. PATIONAL THERAPY ASSIST documented in this encounter Plan of Treatment Upcoming Encounters Date Type Department Care Team (Late st Contact Info) Description 05/22/2024 10:45 AM OCCUPATIONAL THERAPY ASSIST Hospital Encounter Endoscopy [id number] [place] [address] Nikolay Boucher MD [address] [place] [address] 05/22/2024 10:45 AM OCCUPATIONAL THERAPY ASSIST - 05/22/2024 11:15 AM OCCUPATIONAL THERAPY ASSIST Surgery Endoscopy [address] [place] [address] Nikolay Boucher MD [address] [place] [address] EGD Scheduled Procedures Name Priority Associated Diagnoses Date/Ti mo ESOPHAGOGASTRODUODENOSCOPY Crohn's disease of both small and large intestine with intestinal obstruction (HCC) 05/22/2024 10:45 AM OCCUPATIONAL THERAPY ASSIST documented as of this encounter Visit Diagnoses Diagnosis Crohn's disease of both small and large intestine with intestinal obstruction (HCC)- Primary High risk medications (not anticoagulants) long-term use Encounter for long-term (current) use of other medications Crohn's disease of both small and large intestine with intestinal obstruction (HCC) documented in this encounter Care Teams Biztalk Consultant Relationship Specialty Start Date End Date Tip Armenta MD [address] [address] PCP - General Family Medicine 03/18/19 Eleanor Ramon MD [address] [place] [address] Medical Oncologist/Quality Liaison Hematology 07/12/20 documented as of this encounter
--- OUTSIDE RECORDS SUMMARY | 2024-05-18 22:11 | XMS_ITS | Encounter Summary ---
Author Organization [facility] Address [address] [place] [address] Phone Care Team Providers Care Mission Planner Name Role Phone Tip Armenta MD Primary Care Provider [phone] Eleanor Ramon MD Unavailable [phone] Encounter Details Date Type Department Care Team (Late st Contact Info) Description 02/26/2024 Documentation [facility] [address] [facility] [address] [place] [address] Michael Vvieros PA [address] [place] [address] Social History Tobacco Use Types Packs/Day Years [...] on file Legal Sex Male 1:20 AM PIG IRON LOADER Gender Identity Not on file Sexual Orientation Not on file documented as of this encounter Progress Notes * Michael Viveros PA - 02/26/2024 8:33 AM CDT Images from the original note were not included. The patient's CT scan has been dated 02/24/2024. I spoke with the patient earlier this morning regarding results L5-S1 enlarged facet joints with neuroforaminal stenosis moderate to severe at the level L5-S1. The patient reminds me predominantly right lower back pain without any significant leg pain complaints. He was looking forward to his upcoming appointment with the pain management in about acouple weeks to discuss possible facet blocks. He may certainly proceed with the ablation if he hasrelief with the facet blocks. CT scan was reviewed with the attending Concepcion. The collapse of the disc spaces similar as comparedto his previous MRI without any findings of fluid collection. The patient denies any fevers chills night sweats or concerns for infection. If he were to describe any worsening pain that fails to improve with injections or development of fevers or chills, we should consider an updated MRI to rule out any concern for infection and consider lab infection marker workup. We concluded today's visit with the plan to proceed with the blocks at L5-S1 followed by considering ablations. We would recommend that he return to clinic for discussion if he does not improve with the conservative treatment. documented in this encounter Plan of Treatment Upcoming Encounters Date Type Department Care Team (Late st Contact Info) Description 05/22/2024 10:45 AM [facility] Hospital Encounter [facility] Endoscopy [address] [address] [address] Nikolay Boucher MD [address] [place] [address] 05/22/2024 10:45 AM PIG IRON LOADER - 05/22/2024 11:15 AM PIG IRON LOADER Surgery [facility] Endoscopy [address] [address] Nikolay Boucher MD [address] [place] [address] EGD Scheduled Procedures Name Priority Associated Diagnoses Date/Ti me ESOPHAGOGASTRODUODENOSCOPY Crohn's disease of both small and large intestine with intestinal obstruction (HCC) 05/22/2024 10:45 AM PIG IRON LOADER documented as of this encounter Visit Diagnoses Not on filedocumented in this encounter Care Teams Mission Planner Relationship Specialty Start Date End Date Tip Armenta MD [address] [address] PCP - General Family Medicine 03/18/19 Eleanor Ramon MD [address] [place] [address] Medical Oncologist/Route Sales Representative Hematology 07/12/20 documented as of this encounter
--- OUTSIDE RECORDS SUMMARY | 2024-05-18 22:11 | XMS_ITS | Referral Summary ---
Author Organization [facility] al Address [address] [place] [address] Care Team Providers Care Canoe Builder Name Role Phone Tip Armenta MD Primary Care Provider [phone] Eleanor Ramon MD Unavailable [phone] Encounters Date Type Department Care Team Description 05/18/2024 Telephone [facility] Medicine 12th [place] [address] [place] [phone] Latasha Merlos CMA GI Pre Procedural Assessment 05/15/2024 Telephone [facility] [address] [facility] 12th [place] [address] [place] [phone] Susan Pride RN 05/06/2024 8:30 AM FILM CUTTER Office Visit [facility] [address] [place] [address] Medical Office Building [address] [place] [phone] Nikolay Boucher MD Crohn's disease of both small and large intestine with intestinal obstruction (HCC) (Primary Dx); High risk medications (not anticoagulants) long-term use 02/26/2024 Documentation [facility] Neurosurgery [address] [place] [address] Medical Office Building [address] [place] [phone] Michael Viveros PA 02/24/2024 10:15 AM CDT - 02/24/2024 11:59 PM CDT Hospital Encounter [facility] Medical Office Building [address] [place] [address] Facet hypertrophy of lumbar region; Chronic right SI joint pain Discharge Disposition: Discharge to home or self care from Last 3 Months Allergies Active Allergy Reactions Criticality Noted Date Comments Latex Rash Medium Medications ALPRAZolam (XANAX) 1 mg tablet TK 1/2 TO 1 T PO BID PRF ANXIETY 5 11/22/19 18 Active cyanocobalamin (Vitamin B-12) 1,000 mcg/mL injection INJECT 1 ML Q 2 WEEKS UTD 4 12/11/19 18 Active folic acid (FOLVITE) 1 mg tablet Take 1 tablet (1 mg total) by mouth every morning 3 10/26/19 18 Active hydroCHLOROthia zide (HYDRODIURIL) 25 mg tablet Take 1 tablet (25 mg total) by mouth as needed Active ondansetron (ZOFRAN) 8 mg tablet Take 1 tablet (8 mg total) by mouth as needed 5 12/02/19 18 Active CIALIS 20 mg tablet TK 1 T PO QD PRN 5 11/27/19 18 Active testosterone cypionate (DEPO-TESTOTERO NE) 200 mg/mL injection INJ 1 ML IM Q WK 5 11/30/19 18 Active zolpidem (AMBIEN) 10 mg tablet Take 1 tablet (10 mg total) by mouth nightly as needed 5 12/14/19 18 Active diphenoxylate-a tropine (LOMOTIL) 2.5-0.025 mg per tablet Take 1 tablet by mouth 3 (three) times a day as needed 5 06/19/19 19 Active lansoprazole (PREVACID) 15 mg capsule Take 1 capsule (15 mg total) by mouth 2 (two) times a day 10/13/19 17 Active magnesium oxide,aspartate ,citr 400 mg magnesium capsule Take 1 capsule by mouth as needed 10/13/19 17 Active montelukast (SINGULAIR) 10 mg tablet Take 1 tablet (10 mg total) by mouth as needed 1 07/10/19 19 Active BD SAFETYGLIDE SYRINGE 3 mL 23 x 1 syringe U UTD 5 11/27/19 19 Active irbesartan (AVAPRO) 300 mg tablet Take 1 tablet (300 mg total) by mouth every morning 01/31/20 21 Active amLODIPine (NORVASC) 5 mg tablet Take 1 tablet (5 mg total) by mouth every morning 02/01/20 21 Active amitriptyline (ELAVIL) 10 mg tablet Take 1 tablet (10 mg total) by mouth nightly 02/07/20 21 Active acetaminophen-c odeine (TYLENOL with CODEINE #3) 300-30 mg per tablet TAKE 1 TABLET BY MOUTH EVERY 4 HOURS NEEDED FOR PAIN 03/06/20 21 Active hyoscyamine (LEVSIN) 0.125 mg tabletIndicatio ns:Crohn's disease of small and large intestines with complication (HCC),Abdominal spasms TAKE 1 TABLET(0.125 MG) BY MOUTH EVERY 6 HOURS NEEDED FOR CRAMPING OR DIARRHEA/ SPASMS 120 tablet 2 10/26/19 22 Active HYDROcodone-luis antonio taminophen (NORCO) 7.5-325 mg per tablet Take 1 tablet by mouth every 6 (six) hours as needed for pain Active gabapentin (NEURONTIN) 300 mg capsule Take 1 capsule (300 mg total) by mouth 3 (three) times a day 270 capsule 02/23/20 22 Active polyethylene glycol (GoLYTELY) 236-22.74-6.74 -5.86 gram solutionIndicat ions:Crohn's disease of small and large intestines with complication (HCC) Drink 240 ml the day before your Colonoscopy - PLEASE FOLLOW PREP INSTRUCTIONS GIVEN BY DR MCLEAN OFFICE 240 mL 09/26/19 23 Active Additional Information Patient not taking.Reported on 05/06/2024 cholecalciferol (VITAMIN D-3) 50,000 unit capsule Take 1 capsule (50,000 Units total) by mouth 08/29/19 23 Active sulfamethoxazol e-trimethoprim (BACTRIM DS) 800-160 mg per tablet Take 1 tablet by mouth nightly at bedtime 07/12/19 23 Active sulfuric acid-sulfonat. phenoL (DEBACTEROL) 30-50 % swab swab For external use only; avoid contact with eyes. Prior to application/brandi atment, the ulcerated mucosal area should be thoroughly [...] rinse water. The stinging sensation and ulcer pain will subside almost immediately after the rinse. 24 each 02/20/20 23 Active nebivoloL (BYSTOLIC) 5 mg tablet Take 1 tablet (5 mg total) by mouth daily 12/16/19 24 Active cyclobenzaprine (FLEXERIL) 5 mg tabletIndicatio ns:Muscle Spasm Take 1 tablet (5 mg total) by mouth 3 (three) times a day as needed for muscle spasms 90 tablet 01/15/20 24 Active nystatin 100,000 unit/mL suspension SWISH AND SWALLOW 5 ML BY MOUTH TWICE DAILY FOR 14 DAYS 140 mL 03/10/20 24 Active Hyrimoz,CF, Pen 40 mg/0.4 mL pen injector INJECT 1 PEN UNDER THE SKIN EVERY 14 DAYS 0.8 mL 2 04/21/20 24 Active doxycycline hyclate 100 mg capsule Take 1 tablet/capsule (100 mg total) by mouth every 12 (twelve) hours 05/11/20 24 Active HYDROcodone-luis antonio taminophen (NORCO) 10-325 mg per tablet TAKE 1 TABLET BY MOUTH EVERY 4 HOURS NEEDED . DO NOT EXCEED 5 PER 24 HOURS 05/11/20 24 Active adalimumab-adaz (Hyrimoz,CF, Pen) 40 mg/0.4 mL pen injector Inject 40 mg under the skin every 14 (fourteen) days 0.8 mL 2 01/22/20 24 2023 Discontinued Active Problems Problem Noted Date Diagnosed Date Healthcare maintenance 04/17/2023 Overview (11/05/2023): Immunizations: Influenza annual Pneumococcus (Prevnar 20 x1 or Prevnar 13 followed by Pneumovax 8 weeks later, then Pneumovax in 5 years and again at age 65) Zoster HBV Covid Cervical cancer screening: routine follow up with pipeline technician Skin cancer screening: consider referral to dermatology to discuss screening strategy Bone health: DEXA: at diagnosis. Check vitamin D CRC screening: repeat q 2-3 years Assessment & Plan (11/05/2023 4:33 PM CDT): We did not discuss vaccines today Cellulitis 01/25/2022 Prepatellar bursitis 01/24/2022 Stage 3a chronic kidney disease 01/24/2022 Chronic hypertension 02/13/2021 Risk factors for obstructive sleep apnea 021 Cervical disc disorder with myelopathy of mid-cervical region 02/09/2021 Overview (02/09/2021): Added automatically from request for surgery [id number] Chronic diarrhea 07/15/2020 High risk medications (not anticoagulants) long- term use 07/15/2020 Assessment & Plan (05/06/2024 9:23 PM FILM CUTTER): All immunosuppressants increase the risk of infection so we recommend the patient get all available vaccinations, including the pneumococcal vaccine, covid19 and annual influenza vaccine. We screen for TB and HBV prior to initiating an anti-TNF. We monitor CBC and HFP q 3 months for cytopenias and hepatotoxicity. Anti-TNFs may increase the risk for malignancy. The patient should get all age-appropriate cancer screening and in addition should follow with a stunt man for skin cancer screening. There may be a small risk of heart failure so any new HF symptoms would prompt an evaluation and likely discontinuation of therapy. Assessment & Plan (11/05/2023 4:30 PM CDT): All immunosuppressants increase the risk of infection so we recommend the patient get all available vaccinations, including the pneumococcal vaccine, covid19 and annual influenza vaccine. We screen for TB and HBV prior to initiating an anti-TNF. We monitor CBC and HFP q 3 months for cytopenias and hepatotoxicity. Anti-TNFs may increase the risk for malignancy. The patient should get all age-appropriate cancer screening and in addition should follow with a stunt man for skin cancer screening. There may be a small risk of heart failure so any new HF symptoms would prompt an evaluation and likely discontinuation of therapy. Assessment & Plan (04/17/2023 7:06 AM FILM CUTTER): All immunosuppressants increase the risk of infection so we recommend the patient get all available vaccinations, including the pneumococcal vaccine, covid19 and annual influenza vaccine. We screen for TB and HBV prior to initiating an anti-TNF. We monitor CBC and HFP q 3 months for cytopenias and hepatotoxicity. Anti-TNFs may increase the risk for malignancy. The patient should get all age-appropriate cancer screening and in addition should follow with a stunt man for skin cancer screening. There may be a small risk of heart failure so any new HF symptoms would prompt an evaluation and likely discontinuation of therapy. 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 Year symptoms began: 1989. Phenotype: Stricturing (B2) without perianal disease. Distribution: ileocolonic (L3) or ileal? without upper GI disease (L4). Extraintestinal manifestations: none. Complications: SBO. Prior surgeries: . 1989 ICR, meckels resection 2005 re-do ICR for anastomotic stricture ([place]) 2009 re-do ICR for anastomotic stricture (Silvia) Prior [...] recently on Humira. 09/28/2022 Colonoscopy mucosal remission Assessment & Plan (05/06/2024 9:25 PM FILM CUTTER): Remains in clinical remission on adalimumab. Fortunately no issues with the biosimilar. Continue indefinitely. Repeat colonoscopy next year for screening and close monitoring. He cannot afford to lose any more small bowel as this may lead him dependent on TPN or IVF. RTC 6 mos. Assessment & Plan (11/05/2023 4:33 PM CDT): Continue adalimumab. I spent a long time reassuring him that data we have suggests biosimilars have equivalent efficacy and safety. I share their concern that if he loses more bowel he could be left with short bowel. He and his asked about switching to risankizumab. I recommend continuing with adalimumab biosimilar since he is responding to the anti-TNF mechanism. If he flares, risankizumab is a good option. Assessment & Plan (04/17/2023 7:06 AM FILM CUTTER): Clinical and endoscopic remission on adalimumab. 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 RTC 6 mos. Infection of right prepatellar bursa History of Crohn's disease Immunizations Name Administration Dates Next Due Tdap 01/24/2019,01/24/2019 Social History Tobacco Use Types Packs/Day Years [...] on file Legal Sex Male 1:20 AM FILM CUTTER Gender Identity Not on file Sexual Orientation Not on file Last Filed Vital Signs Vital Sign Reading Time Taken Comments Blood Pressure 155/92 05/06/2024 8:52 AM FILM CUTTER Pulse 89 05/06/2024 8:52 AM FILM CUTTER Temperature 36.6 ??C (97.9 ??F) 05/06/2024 8:52 AM CS T Respiratory Rate 18 04/04/2023 8:09 AM FILM CUTTER Oxygen Saturation 99% 05/06/2024 8:52 AM FILM CUTTER Inhaled Oxygen Concentration - - Weight 95.7 kg (211 lb) 05/06/2024 8:52 AM FILM CUTTER Height 188 cm (6' 2 ) 05/06/2024 8:52 AM FILM CUTTER Body Mass Index 27.09 05/06/2024 8:52 AM FILM CUTTER Plan of Treatment Upcoming Encounters Date Type Department Care Team (Late st Contact Info) Description 05/22/2024 10:45 AM FILM CUTTER Hospital Encounter [facility] [address] [place] [address] Nikolay Boucher MD [address] [facility] [place] [address] 05/22/2024 10:45 AM FILM CUTTER - 05/22/2024 11:15 AM FILM CUTTER Surgery [facility]oscopy [address] [place] [address] Nikolay Boucher MD [address] [place] [address] EGD Scheduled Procedures Name Priority Associated Diagnoses Date/Ti ak ESOPHAGOGASTRODUODENOSCOPY Crohn's disease of both small and large intestine with intestinal obstruction (HCC) 05/22/2024 10:45 AM FILM CUTTER Medical Devices Implanted Type Area Ambulance Operations Supervisor Device Identifier Shelf Expiration Date Model / Serial / Lot Medtronic Mexx[employer] [id number] Prestige Lp 6mm 16mm Cervical Spine Disc Intervertebral Titanium - [id number] Implanted:Qty: 1 on 02/16/2021 by Clifford Concepcion MD at [facility] Other - see comments N/A: Spine Cervical [employer] [id number] 07/13/2028 [id number] / / [id number] Procedures Procedure Name Priority Date/Time Associated Diagnosis Comments CT LUMBAR SPINE WO CONTRAST Schedule Routine, Read Routine (OP Routine) 02/24/2024 10:25 AM CDT Facet hypertrophy of lumbar region Chronic right SI joint pain COLONOSCOPY 09/28/2022 7:18 AM CDT from Last 3 Months or Most Recently Relevant to Health Maintenance Results * CT Lumbar Spine WO Contrast (02/24/2024 10:25 AM CDT) Anatomical Region Laterality Modality Spine N/A Computed Tomogra phy 02/25/2024 4:21 PM CDT Narrative 02/25/2024 4:33 PM CDT EXAM DESCRIPTION: ?? CT LUMBAR SPINE WO CONTRAST REASON FOR STUDY: ?? Back pain or radiculopathy, > 6 wks, low back pain; facet joints ?? Low back pain for 1.5 years. No injury. ? TECHNIQUE: Axial images acquired through the lumbar spine without intravenous contrast. ??Reconstructed coronal and sagittal MPR images reviewed. ??All images stored on PACS. Automated exposure control was used as a dose optimization technique for this examination. COMPARISON: ?? Scoliosis series radiographs dated 02/15/2024. ??CT abdomen and pelvis dated 01/25/2022. FINDINGS: SEGMENTATION: ?? 5 vnk-nxz-lygxupu lumbar type vertebral bodies. ALIGNMENT: ?? Mild retrolisthesis of L3 on L4 L5 on S1. VERTEBRAE: ?? Moderate to severe endplate degenerative changes and marginal spur formation at L5-S1 and to a lesser extent the remainder of the lumbar levels. ??Subtle anterior paraspinal soft tissue fat stranding of the level of L5-S1 (series 2, image 277) is nonspecific. DISC HEIGHT: ?? Diffuse intervertebral disc height loss ranging up to moderate to severe at L5-S1 there is vacuum disc phenomenon. HARDWARE: ?? None in the spine. INDIVIDUAL DISC LEVELS: ?? Suboptimally evaluated by non myelographic CT technique. ?? L1-L2: No significant disc bulge, osseous spinal canal or neural foraminal narrowing. L2-L3: No significant disc bulge, osseous spinal canal or neural foraminal narrowing. ??There is bilateral facet arthropathy. L3-L4: Disc bulge with thickened ligamentum flavum and bilateral facet arthropathy. ??Proliferation of dorsal epidural fat. ??Mild osseous spinal canal stenosis. ??No significant osseous neural foraminal narrowing. L4-L5: Disc bulge with thickened ligamentum flavum and bilateral facet arthropathy. ??Moderate osseous spinal canal stenosis. ??Lateral recess effacement on both sides. ??Xcmg-ii-ffscjxst left and mild right osseous neural foraminal narrowing. L5-S1: Disc bulge with marginal spur formation. ??Thickened ligamentum flavum and facet arthropathy. ??Proliferation of epidural fat. ??Zyii-wj-gdkinssl osseous spinal canal stenosis. ??Severe lateral recess effacement on both sides with disc/marginal spur abutting the descending S1 nerve roots. ??Moderate to severe osseous neural foraminal narrowing. SOFT TISSUES: ?? Multiple nonobstructing bilateral renal calculi measuring up to 3-4 mm on the right and 2 mm on the left. ??A few rounded aortocaval low-attenuation foci, for example at the level of L2 measuring up 2 12 mm (series 2, image 117) is indeterminate but present on the previous CT abdomen and pelvis dated 01/25/2022. ??This could reflect a low-attenuation lymph node or other vascular focus. ??Partially imaged numerous varices in the upper abdomen. IMPRESSION: ?? 1. ?? Lumbar disc degeneration ranging up to moderate to severe at L5-S1 with thickened ligamentum flavum and facet arthropathy as described. ??The spinal canal stenosis is most noticeable at L4-L5 and L5-S1. 2. ?? Varying degrees of osseous neural foraminal stenosis ranging up to moderate to severe at L5-S1. 3. ?? The L5-S1 level prevertebral fat stranding is nonspecific. ??Request clinical correlation to exclude an infectious process in the lumbar spine or retroperitoneum. ??If there is concern for lumbar spine osteomyelitis discitis then recommend further assessment with MRI. ??If there is concern for an infection and retroperitoneum then recommend further assessment with contrast-enhanced CT of the abdomen and pelvis. 4. ?? Additional findings as above. ??A copy of the above report was faxed to the ordering clinician's office at the time of this dictation on 02/25/2024 at 4:33 p.m. central standard time. THIS IS AN ELECTRONICALLY VERIFIED FINAL REPORT 02/25/2024 4:33 PM - Electronically signed by ??Tate Richardson D.O. AP: AP D: ??02/25/2024 4:30 PM T: ??02/25/2024 4:33 PM Report ID: [id number] Reading Location: ??[id number] Procedure Note Tate Richardson DO - 02/25/2024 EXAM DESCRIPTION: CT LUMBAR SPINE WO CONTRAST REASON FOR STUDY: Back pain or radiculopathy, > 6 wks, low back pain;facet joints Low back pain for 1.5 years. No injury. TECHNIQUE: Axial images acquired through the lumbar spine withoutintravenous contrast. Reconstructed coronal and sagittal MPR images reviewed. Allimages stored on PACS. Automated exposure control was used as a dose optimization technique forthis examination. COMPARISON: Scoliosis series radiographs dated 02/15/2024. CT abdomenand pelvis dated 01/25/2022. FINDINGS: SEGMENTATION: 5 ixo-acc-okvmifc lumbar type vertebral bodies. ALIGNMENT: Mild retrolisthesis of L3 on L4 L5 on S1. VERTEBRAE: Moderate to severe endplate degenerative changes and marginal spur formation at L5-S1 and to a lesser extent the remainder of the lumbar levels. Subtle anterior paraspinal soft tissue fat stranding of the levelof L5-S1 (series 2, image 277) is nonspecific. DISC HEIGHT: Diffuse intervertebral disc height loss ranging up tomoderate to severe at L5-S1 there is vacuum disc phenomenon. HARDWARE: None in the spine. INDIVIDUAL DISC LEVELS: Suboptimally evaluated by non myelographic CT technique. L1-L2: No significant disc bulge, osseous spinal canal or neural foraminal narrowing. L2-L3: No significant disc bulge, osseous spinal canal or neural foraminal narrowing. There is bilateral facet arthropathy. L3-L4: Disc bulge with thickened ligamentum flavum and bilateral facet arthropathy. Proliferation of dorsal epidural fat. Mild osseous spinalcanal stenosis. No significant osseous neural foraminal narrowing. L4-L5: Disc bulge with thickened ligamentum flavum and bilateral facet arthropathy. Moderate osseous spinal canal stenosis. Lateral recess effacement on both sides. Ubvz-ah-kaphnkyz left and mild right osseousneural foraminal narrowing. L5-S1: Disc bulge with marginal spur formation. Thickened ligamentumflavum and facet arthropathy. Proliferation of epidural fat. Udty-ld-odetmrus osseous spinal canal stenosis. Severe lateral recess effacement on bothsides with disc/marginal spur abutting the descending S1 nerve roots. Moderateto severe osseous neural foraminal narrowing. SOFT TISSUES: Multiple nonobstructing bilateral renal calculi measuringup to 3-4 mm on the right and 2 mm on the left. A few rounded aortocaval low-attenuation foci, for example at the level of L2 measuring up 2 12 mm (series 2, image 117) is indeterminate but present on the previous CTabdomen and pelvis dated 01/25/2022. This could reflect a low-attenuation lymphnode or other vascular focus. Partially imaged numerous varices in the upper abdomen. IMPRESSION: 1. Lumbar disc degeneration ranging up to moderate to severe at L5-S1with thickened ligamentum flavum and facet arthropathy as described. Thespinal canal stenosis is most noticeable at L4-L5 and L5-S1. 2. Varying degrees of osseous neural foraminal stenosis ranging up to moderate to severe at L5-S1. 3. The L5-S1 level prevertebral fat stranding is nonspecific. Request clinical correlation to exclude an infectious process in the lumbar spineor retroperitoneum. If there is concern for lumbar spine osteomyelitisdiscitis then recommend further assessment with MRI. If there is concern for an infection and retroperitoneum then recommend further assessment with contrast-enhanced CT of the abdomen and pelvis. 4. Additional findings as above. A copy of the above report was faxed to the ordering clinician's officeat the time of this dictation on 02/25/2024 at 4:33 p.m. central standardtime. THIS IS AN ELECTRONICALLY VERIFIED FINAL REPORT 02/25/2024 4:33 PM - Electronically signed by Tate Richardson D.O. AP: AP Report ID: [id number] Reading Location: [place] [address] us Michael Rosalino ABAD IMG CT PROCEDURES Final R esult * COLONOSCOPY (09/28/2022 7:18 AM CDT) Anatomical Region Laterality Modality Other Narrative Procedure Note Roxanna Mclean MD - 09/28/2022 7:18 AM CDT ENDOSCOPY LAB Patient Name: Mello Herbert Procedure Date: 09/28/2022 7:18 AM Date of : 1965 Admit Type: Outpatient Age: 57 Gender: Male Attending MD: Roxanna Mclean M.D. Room: [facility] ENDOSCOPY ROOM 01 Note Status: Finalized Procedure: Colonoscopy Indications: High risk colon cancer surveillance: Crohn'scolitis of 8 (or more) years duration with one-third (ormore) of the colon involved on Humira 40mg Q14d Providers: Roxanna Mclean M.D. Referring MD: Tip Armenta M.D. Medicines: Monitored Anesthesia Care Complications: No immediate complications. Estimated Blood Loss: Estimated blood loss: none. Procedure: Pre-Anesthesia Assessment: - The risks and benefits of the procedure and the sedation options and risks were discussed with the patient. All questions were answered and informed consent was obtained. - Pre-procedure physical examination revealed no contraindications to sedation. The benefits, risks and alternatives of theprocedure and sedation were discussed and informed consentwas obtained. All questions were answered. Please referto the signed informed consent document in the medical record. The scope was passed under direct vision.The [id number] was introduced through the anusand advanced to 20 cm into the ileum. The colonoscopywas performed without difficulty. The patient tolerated the procedure well. The quality of the bowel preparation was good. Bowel prep was administered using a split dose. Findings: The perianal and digital rectal examinations were normal. Pertinent negatives include no palpable rectal lesions. Normal mucosa was found in the entire colon. Contrast chromoscopywith methylene blue was performed using irrigation chromoendoscopytechnique. There was evidence of a prior end-to-side ileo-colonic anastomosis in the proximal transverse colon. This was patent and was characterizedby healthy appearing mucosa. The anastomosis was traversed. THe blinf effernt limb contained a few superficial erosions. The terminal ileum appeared normal. No additional abnormalities were found on retroflexion. Impression: - Normal mucosa in the entire examined colon. Chromoscopy performed. - Patent end-to-side ileo-colonic anastomosis, characterized by healthy appearing mucosa. - The examined portion of the ileum was normal. - No specimens collected. Recommendation: - Return to GI clinic as previously scheduled. - Mucosal remission - Contact Information: During normal business hours - [facility] [place] [facility]: [phone] After hours, evening, nights, weekends and holidays- Please call the hospital hydraulic lift operator at and ask for the GI fellow religion teacher. Attending Participation: I personally performed the entire procedure. Electronically signed by Roxanna Mclean M.D. Roxanna Mclean M.D. 09/28/2022 7:54:20 AM Number of Addenda: 0 Note Initiated On: 09/28/2022 7:18 AM Roxanna Mclean MD ENDOSCOPY PROCEDURE S Final Result from Last 3 Months or Most Recently Relevant to Health Maintenance Insurance ANTHEM ACCESS SPRING ACCESS OOS ANTHEM ACCESS Advance Directives For more information, please contact: [phone] * Full Code (Latest Code Status on File) Date Activated Date Inactivated Comments 09/28/2022 6:29 AM 09/28/2022 12:36 PM * Full Code Date Activated Date Inactivated Comments 01/24/2022 4:47 PM 01/27/2022 10:37 PM * Full Code Date Activated Date Inactivated Comments 02/16/2021 6:36 PM 02/17/2021 3:17 PM * Full Code Date Activated Date Inactivated Comments 12/30/2020 6:13 AM 12/30/2020 1:11 PM Care Teams Canoe Builder Relationship Specialty Start Date End Date Tip Armenta MD [address] [address] PCP - General Family Medicine 03/18/19 Eleanor Ramon MD [address] [facility] [address] [place] [address] Medical Oncologist/Senior Data Scientist Hematology 07/12/20
--- OUTSIDE RECORDS SUMMARY | 2024-05-18 22:11 | XMS_ITS | Clinical Summary ---
Author Organization [facility] Address [address] [place] [address] Care Team Providers Care Ticket Printer Name Role Phone Tip Armenta MD Primary Care Provider [phone] Eleanor Ramon MD Unavailable [phone] Allergies Active Allergy Reactions Criticality Noted Date [...] 14 (fourteen) days 0.8 mL 2 01/22/20 2023 Discontinued Active Problems Problem Noted Date Diagnosed Date Healthcare maintenance 04/17/2023 Overview (11/05/2023): Immunizations: Influenza annual Pneumococcus (Prevnar 20 x1 or Prevnar 13 followed by Pneumovax 8 weeks later, then Pneumovax in 5 years and again at age 65) Zoster HBV Covid Cervical cancer screening: routine follow up with dyer helper Skin cancer screening: consider referral to dermatology [...] (02/09/2021): Added automatically from request for surgery [id number] Chronic diarrhea 07/15/2020 High risk medications (not anticoagulants) long- term use 07/15/2020 Assessment & Plan (05/06/2024 9:23 PM REMOTE CONTROL MIRROR INSTALLER): All immunosuppressants increase the risk of infection [...] and in addition should follow with a sharepoint admin for skin cancer screening. There may be [...] and in addition should follow with a sharepoint admin for skin cancer screening. There may be a small risk of heart failure so any new HF symptoms would prompt an evaluation and likely discontinuation of therapy. Assessment & Plan (04/17/2023 7:06 AM REMOTE CONTROL MIRROR INSTALLER): All immunosuppressants increase the risk of infection [...] and in addition should follow with a sharepoint admin for skin cancer screening. There may be [...] manifestations: none. Complications: SBO. Prior surgeries: . 1990 ICR, meckels resection 2006 re-do ICR for [...] remission Assessment & Plan (05/06/2024 9:25 PM REMOTE CONTROL MIRROR INSTALLER): Remains in clinical remission on adalimumab. Fortunately [...] option. Assessment & Plan (04/17/2023 7:06 AM REMOTE CONTROL MIRROR INSTALLER): Clinical and endoscopic remission on adalimumab. 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 RTC 6 mos. Infection of right prepatellar bursa History of Crohn's disease Encounters Date Type Department Care Team Description 05/18/2024 Telephone [facility] Gastro[facility] [address] [facility] [address] [place] [address] [place] [address] Latasha Merlos CMA GI Pre Procedural Assessment 05/15/2024 Telephone [facility] [address] [facility] [address] [place] [address] [place] [address] Susan Pride RN 05/06/2024 8:30 AM REMOTE CONTROL MIRROR INSTALLER Office Visit [facility] [address] [facility] Medical Office Building [address] [place] [address] Nikolay Boucher MD Crohn's disease of both small and large intestine with intestinal obstruction (HCC) (Primary Dx); High risk medications (not anticoagulants) long-term use 02/26/2024 Documentation [facility] Neurosurgery [address] [facility] Medical Office Building [address] [place] [address] Michael Viveros PA 02/24/2024 10:15 AM CDT - 02/24/2024 11:59 PM CDT Hospital Encounter [facility] [place] Medical Office Building [address] [place] [address] Facet hypertrophy of lumbar region; Chronic right SI joint pain Discharge Disposition: Discharge to home or self care from Last 3 Months Immunizations Name Administration Dates Next Due Tdap 01/24/2019,01/24/2019 Surgical History Surgery Date Site/Laterality Comments SMALL BOWEL RESECTION 05/27/1989 - 05/26/1990 re-do 2005, 2009 CERVICAL DISC ARTHROPLASTY 05/27/2020 - 05/26/2021 C6-7 Medical History Medical History Date Comments Crohn's colitis (CMS/HCC) (HCC) Hypertension GERD (gastroesophageal reflux disease) Anemia Anxiety and depression Family History Medical History Relation Name Comments No Known Problems Father No Known Problems Mother Relation Name Status Comments Father Mother Social History Tobacco Use Types Packs/Day Years [...] on file Legal Sex Male 1:20 AM REMOTE CONTROL MIRROR INSTALLER Gender Identity Not on file Sexual Orientation Not on file Obstetrics History Last Filed Vital Signs Vital Sign Reading Time Taken Comments Blood Pressure 155/92 05/06/2024 8:52 AM REMOTE CONTROL MIRROR INSTALLER Pulse 89 05/06/2024 8:52 AM REMOTE CONTROL MIRROR INSTALLER Temperature 36.6 ??C (97.9 ??F) 05/06/2024 8:52 AM CS T Respiratory Rate 18 04/04/2023 8:09 AM REMOTE CONTROL MIRROR INSTALLER Oxygen Saturation 99% 05/06/2024 8:52 AM REMOTE CONTROL MIRROR INSTALLER Inhaled Oxygen Concentration - - Weight 95.7 kg (211 lb) 05/06/2024 8:52 AM REMOTE CONTROL MIRROR INSTALLER Height 188 cm (6' 2 ) 05/06/2024 8:52 AM REMOTE CONTROL MIRROR INSTALLER Body Mass Index 27.09 05/06/2024 8:52 AM REMOTE CONTROL MIRROR INSTALLER Plan of Treatment Upcoming Encounters Date Type Department Care Team (Late st Contact Info) Description 05/22/2024 10:45 AM REMOTE CONTROL MIRROR INSTALLER Hospital Encounter [facility] [address] [place] [address] Nikolay Boucher MD [address] [facility] [place] [address] 05/22/2024 10:45 AM REMOTE CONTROL MIRROR INSTALLER - 05/22/2024 11:15 AM REMOTE CONTROL MIRROR INSTALLER Surgery [facility] [address] [address] Nikolay Boucher MD [address] [facility] [place] [address] EGD Scheduled Procedures Name Priority Associated Diagnoses Date/Ti me ESOPHAGOGASTRODUODENOSCOPY Crohn's disease of both small and large intestine with intestinal obstruction (HCC) 05/22/2024 10:45 AM REMOTE CONTROL MIRROR INSTALLER Health Maintenance Due Date Last Done Comments Depression Screening 1965 Hepatitis C Screening 1965 Prostate Cancer Screening-PSA 1965 Regular Well Visit/Exam 18-64 1982 Zoster Vaccine (1 of 2) 2014 Influenza Vaccine (#1) 2024 DTaP/Tdap/Td Vaccine (3 - Td or Tdap) 01/24/2029 01/24/2019, 01/24/2019 Colon Cancer Screening-Colonoscopy 09/28/2032 09/28/2022, 12/30/2020, 03/18/2017, Additional history exists Colon Cancer Screening-CT Colonography Discontinued 09/28/2022, 12/30/2020, 03/18/2017, Additional history exists Colon Cancer Screening-DNA Stool Discontinued 09/28/2022, 12/30/2020, 03/18/2017, Additional history exists Colon Cancer Screening-FIT Discontinued 09/28, 12/30/2020, 03/18/2017, Additional history exists Colon Cancer Screening-Sigmoidoscopy Discontinued 09/28/2022, 12/30/2020, 03/18/2017, Additional history exists Hepatitis B Screening Completed 11/05/2023 Pneumococcal vaccine <65 Aged Out No longer eligible based on patient's age to complete this topic Medical Devices Implanted Type Area Scale Balancer Device Identifier Shelf Expiration Date Model / Serial / Lot Medtronic EVS [employer] [id number] [facility] 6mm 16mm Cervical Spine Disc Intervertebral Titanium - [id number] Implanted:Qty: 1 on 02/16/2021 by Clifford Concepcion MD at [facility] Other - see comments N/A: Spine Cervical Medtronic Inc [id number] 07/13/2028 [id number] / / [id number] Procedures Procedure Name Priority Date/Time Associated Diagnosis [...] pelvis dated 01/25/2022. FINDINGS: SEGMENTATION: ?? 5 zqz-myw-iehzuzj lumbar type vertebral bodies. ALIGNMENT: ?? Mild [...] stenosis. ??Lateral recess effacement on both sides. ??Fsde-yp-nsilsgyq left and mild right osseous neural foraminal narrowing. L5-S1: Disc bulge with marginal spur formation. ??Thickened ligamentum flavum and facet arthropathy. ??Proliferation of epidural fat. ??Fcpq-gz-qkpjgnnk osseous spinal canal stenosis. ??Severe lateral recess [...] Electronically signed by ??Tate Richardson D.O. AP: SOLE D: ??02/25/2024 4:30 PM T: ??02/25/2024 4:33 PM Report ID: [id number] Reading Location: ??[id number] Procedure Note Tate Richardson, DO - 02/25/2024 EXAM DESCRIPTION: CT LUMBAR [...] abdomenand pelvis dated 01/25/2022. FINDINGS: SEGMENTATION: 5 tqi-qbl-cjziemu lumbar type vertebral bodies. ALIGNMENT: Mild retrolisthesis [...] stenosis. Lateral recess effacement on both sides. Uwjf-wd-vyjivumd left and mild right osseousneural foraminal narrowing. L5-S1: Disc bulge with marginal spur formation. Thickened ligamentumflavum and facet arthropathy. Proliferation of epidural fat. Zowg-jt-miukufck osseous spinal canal stenosis. Severe lateral recess [...] Tate Richardson D.O. AP: AP Report ID: [id number] Reading Location: [id number] us Michael ABAD IMG CT PROCEDURES Final R esult * COLONOSCOPY (09/28/2022 7:18 AM CDT) Anatomical Region Laterality Modality Other Narrative Procedure Note Roxanna Mclean MD - 09/28/2022 7:18 AM CDT ENDOSCOPY LAB Patient Name: Mello Herbert Procedure Date: 09/28/2022 7:18 AM Date of : 1965 Admit Type: Outpatient Age: 57 Gender: Male Attending MD: Roxanna Mclean M.D. Room: [facility] ENDOSCOPY ROOM 01 Note Status: Finalized Procedure: [...] The scope was passed under direct vision.The [id number] was introduced through the anusand advanced to [...] During normal business hours - Please call theNurse Coordinator: [phone] After hours, evening, nights, weekends and holidays- Please call the hospital mechanical shovel operator at and ask for the GI fellow environmental economist. Attending Participation: I personally performed the entire procedure. Electronically signed by Roxanna Mclean M.D. Roxanna Mclean M.D. 09/28/2022 7:54:20 AM Number of Addenda: 0 Note Initiated On: 09/28/2022 7:18 AM us Roxnana Mclean MD ENDOSCOPY PROCEDURE S Final Result from Last 3 Months or Most Recently Relevant to Health Maintenance Insurance ANTHEM ACCESS BLUE ACCESS OOS ANTHEM ACCESS Advance Directives For more information, please contact: [phone] * Full Code (Latest Code Status on File) Date Activated Date Inactivated Comments 09/28/2022 6:29 AM 09/28/2022 12:36 PM * Full Code Date Activated Date Inactivated Comments 01/24/2022 4:47 PM 01/27/2022 10:37 PM * Full Code Date Activated Date Inactivated Comments 02/16/2021 6:36 PM 02/17/2021 3:17 PM * Full Code Date Activated Date Inactivated Comments 12/30/2020 6:13 AM 12/30/2020 1:11 PM Care Teams Ticket Printer Relationship Specialty Start Date End Date Tip Armenta MD [address] [address] PCP - General Family Medicine 03/18/19 Eleanor Ramon MD [address] [facility] [address] [place] [address] Medical Oncologist/Multigrapher Hematology 07/12/20
--- OUTSIDE RECORDS SUMMARY | 2024-05-18 22:11 | XMS_ITS | Encounter Summary ---
Author Organization [facility] Address [address] [place] [address] Phone Care Team Providers Care Photo Colorer Name Role Phone Tip Armenta MD Primary Care Provider [phone] Eleanor Ramon MD Unavailable [phone] Reason for Referral * MRI/CAT/PET Scan (Routine) - Closed Specialty Diagnoses / Procedures Referred By Contac t Referred To Contact Radiology Diagnoses Facet hypertrophy of lumbar region Chronic right SI joint pain Procedures CT Lumbar Spine WO Contrast Michael Viveros PA [address] [place] [address] Phone: tel: fax: [address] [address] Referral ID Status Reason Start Date Expiration Date Visits Re quested Visits Authorized [id number] Closed 02/14/2024 03/14/2024 1 1 Encounter Details Date Type Department Care Team (Late st Contact Info) Description 02/14/2024 3:00 PM CDT Telemedicine [facility] Neurosurgery [address] [place] [address] Medical Office Building [address] [place] [address] Michael Viveros PA [address] [place] [address] Facet hypertrophy of lumbar region (Primary Dx); Chronic right SI joint pain Social History Tobacco Use Types Packs/Day Years [...] on file Legal Sex Male 1:20 AM CLOTH SPREADER Gender Identity Not on file Sexual Orientation Not on file documented as of this encounter Progress Notes * Michael Viveros PA - 02/14/2024 3:00 PM CDT Images from the original note were not included. This was a telemedicine visit with Mello Herbert alone which took place via Telephone. During the visit, I was located in the office and the patient was located at home in the [facility]. The patient visit started at 09:33 and ended at 09:40. My total encounter time on 02/14/2024 was 10 minutes which was spent in the activities documented in the note. This includes time spent prior to the visit and after the visit in direct care of the patient. This time does not include time spent in any separately reportable services. I have explained the option of participating in a telemedicine visit to the patient. After being given an opportunity to ask questions about and discuss this type of visit, the patient verbally consented to proceeding with the telemedicine visit. The patient understands that this service replaces an office visit and they may be billed and/or responsible for any applicable copayments. A guest was not included in this video visit. RETURN VISIT Subjective HISTORY OF PRESENT ILLNESS Pleasant 58-year-old male was last seen 1 month ago with some lower back pain complaints. Unfortunately, the oral medications have not provided sustained relief in symptoms. He continues to describe some right-sided lower back pain located along the SI joint and lower lumbar, lumbosacral region. His previous imaging studies from 2020 have noted flat back deformity, degenerative disc disease and annular tear L5-S1. He denies any significant change in his symptoms, change in pain pattern or progression. Unfortunately, these symptoms have not improved and he wishes to discuss further options that could be considered. ALLERGIES He is allergic to latex. MEDICATIONS Current Outpatient Medications: acetaminophen-codeine (TYLENOL with CODEINE #3) 300-30 mg per tablet, TAKE 1 TABLET BY MOUTH EVERY 4 HOURS NEEDED FOR PAIN, Disp: , Rfl: adalimumab-adaz (Hyrimoz,CF, Pen) 40 mg/0.4 mL pen injector, Inject 40 mg under the skin every 14 (fourteen) days, Disp: 0.8 mL, Rfl: 2 ALPRAZolam (XANAX) 1 mg tablet, TK 1/2 TO 1 T PO BID PRF ANXIETY, Disp: , Rfl: 5 amitriptyline (ELAVIL) 10 mg tablet, Take 1 tablet (10 mg total) by mouth nightly (Patient not taking: Reported on 01/15/2024), Disp: , Rfl: amLODIPine (NORVASC) 5 mg tablet, Take 1 tablet (5 mg total) by mouth every morning, Disp: , Rfl: BD SAFETYGLIDE SYRINGE 3 mL 23 x 1 syringe, U UTD, Disp: , Rfl: 5 cholecalciferol (VITAMIN D-3) 50,000 unit capsule, Take 1 capsule (50,000 Units total) by mouth (Patient not taking: Reported on 01/15/2024), Disp: , Rfl: CIALIS 20 mg tablet, TK 1 T PO QD PRN, Disp: , Rfl: 5 cyanocobalamin (Vitamin B-12) 1,000 mcg/mL injection, INJECT 1 ML Q 2 WEEKS UTD, Disp: , Rfl: 4 cyclobenzaprine (FLEXERIL) 5 mg tablet, Take 1 tablet (5 mg total) by mouth 3 (three) times a day as needed for muscle spasms, Disp: 90 tablet, Rfl: 0 diphenoxylate-atropine (LOMOTIL) 2.5-0.025 mg per tablet, Take 1 tablet by mouth 3 (three) times a day as needed, Disp: , Rfl: 5 folic acid (FOLVITE) 1 mg tablet, Take 1 tablet (1 mg total) by mouth every morning, Disp: , Rfl: 3 gabapentin (NEURONTIN) 300 mg capsule, Take 1 capsule (300 mg total) by mouth 3 (three) times a day, Disp: 270 capsule, Rfl: 0 hydroCHLOROthiazide (HYDRODIURIL) 25 mg tablet, Take 1 tablet (25 mg total) by mouth as needed, Disp: , Rfl: HYDROcodone-acetaminophen (NORCO) 7.5-325 mg per tablet, Take 1 tablet by mouth every 6 (six) hoursas needed for pain, Disp: , Rfl: hyoscyamine (LEVSIN) 0.125 mg tablet, TAKE 1 TABLET(0.125 MG) BY MOUTH EVERY 6 HOURS NEEDED FOR CRAMPING OR DIARRHEA/ SPASMS, Disp: 120 tablet, Rfl: 2 irbesartan (AVAPRO) 300 mg tablet, Take [...] mouth as needed, Disp: , Rfl: 1 nebivoloL (BYSTOLIC) 5 mg tablet, Take 1 tablet (5 mg total) by mouth daily, Disp: , Rfl: nystatin 100,000 unit/mL suspension, Shake well. Swish and swallow 5 ml twice daily for 14 days, Disp: 140 mL, Rfl: 0 ondansetron (ZOFRAN) 8 mg tablet, Take 1 tablet (8 mg total) by mouth as needed, Disp: , Rfl: 5 polyethylene glycol (GoLYTELY) 236-22.74-6.74 -5.86 gram solution, Drink 240 ml the day before yourColonoscopy - PLEASE FOLLOW PREP INSTRUCTIONS GIVEN BY DR MCLEAN OFFICE (Patient not taking: Reported on 01/15/2024), Disp: 240 mL, Rfl: 0 sulfamethoxazole-trimethoprim (BACTRIM DS) 800-160 mg per tablet, [...] nightly as needed, Disp: , Rfl: 5 Objective REVIEW OF IMAGING Lumbar MRI from 2020 is notable for facet disease, hypertrophy at L5-S1 contributing to moderate tosevere foraminal stenosis bilateral. There is xepz-fv-sfixdhxl central stenosis at this segment with degenerative disc disease and collapse of the disc space. The remainder of the lumbar spine is without any significant stenosis, foraminal narrowing. There is multilevel areas of facet disease throughout without significant foraminal stenosis, most significant L5-S1. EXAMINATION: XR SCOLIOSIS 6 OR MORE VIEWS HISTORY: 58-year-old man with back pain. FINDINGS: 8 radiographs of the cervical, thoracic, lumbar spine are provided for interpretation. Comparison with radiographs of the cervical spine obtained on 02/21/2022 and radiographs of the cervical, thoracic, lumbar spine obtained on 10/19/2021. There is minimal levocurvature of the thoracic spine. There is leftward coronal imbalance and positive sagittal imbalance. There is no pelvic obliquity. There is moderate degenerative disc disease at L5-S1 and mild degenerative disc disease throughout the rest of the lumbar spine. There is retrolisthesis of L5 on S1 that does not correct with flexion or extension. There is a C6-C7 disc arthroplasty present. IMPRESSION: Unchanged degenerative disc disease of the lumbar spine, moderate at L5-S1. Assessment/Plan L5-S1 degenerative disc disease Facet hypertrophy with mediated discomfort, L5-S1 Right SI joint pain Status post cervical arthroplasty, [address] Concepcion PLAN Pleasant 58-year-old male with known degenerative disc disease L5-S1, facet hypertrophy. He does have some right SI joint pain and facet mediated discomfort. We discussed proceeding with a CT scan ofthe lumbar spine as reviewed with Dr. Concepcion during his last office visit. He was a candidate to con stone lathe operator diagnostic injections as he has been appointment scheduled next month with pain management. This has scheduled for the 09 of March as we recommended a CT scan which would be complete ideally prior to his appointment to evaluate facet hypertrophy and help direct location for injections. Our goal is to avoid surgical options. I would welcome him to come back into clinic after he undergo some injections to see if this provides relief with his symptoms. Michael Viveros PA-C documented in this encounter Plan of Treatment Upcoming Encounters Date Type Department Care Team (Late st Contact Info) Description 05/22/2024 10:45 AM CLOTH SPREADER Hospital Encounter [facility] Endoscopy [address] [address] Nikolay Boucher MD [address] [place] [address] 05/22/2024 10:45 AM CLOTH SPREADER - 05/22/2024 11:15 AM CLOTH SPREADER Surgery [facility]oscopy [address] [address] Nikolay Boucher MD [address] [place] [address] EGD Scheduled Procedures Name Priority Associated Diagnoses Date/Ti me ESOPHAGOGASTRODUODENOSCOPY Crohn's disease of both small and large intestine with intestinal obstruction (HCC) 05/22/2024 10:45 AM CLOTH SPREADER documented as of this encounter Results * CT Lumbar Spine WO Contrast [...] pelvis dated 01/25/2022. FINDINGS: SEGMENTATION: ?? 5 bsc-jzf-ujcshzi lumbar type vertebral bodies. ALIGNMENT: ?? Mild [...] stenosis. ??Lateral recess effacement on both sides. ??Dcby-qm-qqgyozeg left and mild right osseous neural foraminal narrowing. L5-S1: Disc bulge with marginal spur formation. ??Thickened ligamentum flavum and facet arthropathy. ??Proliferation of epidural fat. ??Bpmv-tv-hwjanzxg osseous spinal canal stenosis. ??Severe lateral recess [...] PM T: ??02/25/2024 4:33 PM Report ID: [id number] Reading Location: ??[id number] Procedure Note Tate Richardson, DO - 02/25/2024 [...] abdomenand pelvis dated 01/25/2022. FINDINGS: SEGMENTATION: 5 xgx-ceg-tdcawmv lumbar type vertebral bodies. ALIGNMENT: Mild retrolisthesis [...] stenosis. Lateral recess effacement on both sides. Xdnv-th-iapfowuk left and mild right osseousneural foraminal narrowing. L5-S1: Disc bulge with marginal spur formation. Thickened ligamentumflavum and facet arthropathy. Proliferation of epidural fat. Drtm-jp-eotwgqgd osseous spinal canal stenosis. Severe lateral recess [...] Tate Richardson D.O. AP: AP Report ID: [id number] Reading Location: [place] [address] us Michael Rosalino ABAD IMG CT PROCEDURES Final R esult documented in this encounter Visit Diagnoses Diagnosis Facet hypertrophy of lumbar region- Primary Chronic right SI joint pain Disorders of sacrum Facet hypertrophy of lumbar region Chronic right SI joint pain Disorders of sacrum Crohn's disease of both small and large intestine with intestinal obstruction (HCC) documented in this encounter Care Teams Photo Colorer Relationship Specialty Start Date End Date Tip Armenta MD [address] [address] PCP - General Family Medicine 03/18/19 Eleanor Ramon MD [address] [facility] [address] [place] [address] Medical Oncologist/Row Boss Hoeing Hematology 07/12/20 documented as of this encounter
--- OUTSIDE RECORDS SUMMARY | 2024-05-18 22:11 | XMS_ITS | Encounter Summary ---
Author Organization [facility] Address [address] [place] [address] Phone Care Team Providers Care Cleaner Industrial Name Role Phone Tip Armenta MD Primary Care Provider [phone] Eleanor Ramon MD Unavailable [phone] Reason for Referral * Consultation (Routine) - Pending Review Specialty Diagnoses / Procedures Referred By Contac t Referred To Contact Pain Management Diagnoses Chronic right SI joint pain Facet hypertrophy of lumbar region Syeda Nolan PA [address] [place] [address] Phone: tel: fax: [address] [address] Referral ID Status Reason Start Date Expiration Date Visits Requested Visits Authorized [id number] Pending Review Specialty Services Required 01/31/2024 03/01/2025 3 3 Question Answer Please select the performing region: [facility] [[id number]] # of visits: 3 Comments Eval and treat Consider facet blocks vs ablations Encounter Details Date Type Department Care Team (Late st Contact Info) Description 01/16/2024 Telephone [place] [id number] [facility] Medical Office Building 4 [address] [place] [address] Syeda Nolan PA [address] [place] [address] Social History Tobacco Use Types Packs/Day Years [...] on file Legal Sex Male 1:20 AM AGRICULTURAL LENDER Gender Identity Not on file Sexual Orientation Not on file documented as of this encounter Miscellaneous Notes * Addendum Note - Syeda Nolan PA - 01/31/2024 3:24 PM CDTAddended by: SYEDA NOLAN on: 01/31/2024 03:24 PM Modules accepted: Orders * Telephone Encounter - Syeda Nolan PA - 01/31/2024 3:23 PM CDT Rx for pain management referral sent. * Telephone Encounter - Sandy Hernandez CMA - 01/31/2024 10:29 AM CDT Patient calling states the medications are not working and would like to move forward with the referral to pain management for injections and possible repeat imaging * Telephone Encounter - Sarah Cavazos - 01/16/2024 3:09 PM CDT MANNY Sarkar, I have your Telehealth Appointment scheduled, with Syeda, on 02/14/24 around 3:00 pm. Please note: this is a phone call, and there is no need to come to the office. Appointment time may not be exact;please give our office time to call you. If you have any questions please reach out through [employer] call our office at [phone]. Thank you! Mychart message sent and appt reminder mailed. * Telephone Encounter - Sarah Cavazos - 01/16/2024 3:09 PM CDT ----- Message from POLLO Craft sent at 01/15/2024 10:02 AM CDT ----- Regarding: televisit in four to five weeks Can we please schedule a simple televisit in four to five weeks? documented in this encounter Plan of Treatment Upcoming Encounters Date Type Department Care Team (Late st Contact Info) Description 05/22/2024 10:45 AM AGRICULTURAL LENDER Hospital Encounter [facility] Endoscopy [address] [address] Nikolay Boucher MD [address] [facility] [place] [address] 05/22/2024 10:45 AM AGRICULTURAL LENDER - 05/22/2024 11:15 AM AGRICULTURAL LENDER Surgery [facility] Endoscopy [address] [place] [address] Nikolay Boucher MD [address] [facility] [place] [address] EGD Scheduled Procedures Name Priority Associated Diagnoses Date/Ti me ESOPHAGOGASTRODUODENOSCOPY Crohn's disease of both small and large intestine with intestinal obstruction (HCC) 05/22/2024 10:45 AM AGRICULTURAL LENDER Scheduled Referrals Name Type Priority Associated Diagnoses Orde r Schedule Ambulatory referral to Pain Management Outpatient Referral Routine Chronic right SI joint pain Facet hypertrophy of lumbar region Expected: 02/14/2024 (Approximate), Expires: 01/30/2025 documented as of this encounter Visit Diagnoses Diagnosis Status post cervical disc replacement- Primary Annular tear of lumbar disc Chronic right SI joint pain Disorders of sacrum Facet hypertrophy of lumbar region Crohn's disease of both small and large intestine with intestinal obstruction (HCC) documented in this encounter Care Teams Cleaner Industrial Relationship Specialty Start Date End Date Tip Armenta MD [address] [address] PCP - General Family Medicine 03/18/19 Eleanor Ramon MD [address] [facility] [address] [place] [address] Medical Oncologist/Strategic Debriefing Specialist Hematology 07/12/20 documented as of this encounter
--- OUTSIDE RECORDS SUMMARY | 2024-05-18 22:11 | XMS_ITS | Encounter Summary ---
Author Organization [facility] Healthcare Address [address] [place] [address] Care Team Providers Care Line Dancer Name Role Phone Tip Armenta MD Primary Care Provider [phone] Eleanor Ramon MD Unavailable [phone] Reason for Referral * MRI/CAT/PET Scan (Routine) - Closed Specialty Diagnoses / Procedures Referred By Contac t Referred To Contact Radiology Diagnoses Facet hypertrophy of lumbar region Chronic right SI joint pain Procedures CT Lumbar Spine WO Contrast Michael Viveros PA [address] [place] [address] Phone: tel: fax: [address] [address] Referral ID Status Reason Start Date Expiration Date Visits Re quested Visits Authorized [id number] Closed 02/14/2024 03/14/2024 1 1 Reason for Visit * MRI/CAT/PET Scan (Routine) - Closed Specialty Diagnoses / Procedures Referred By Contac t Referred To Contact Radiology Diagnoses Facet hypertrophy of lumbar region Chronic right SI joint pain Procedures CT Lumbar Spine WO Contrast Michael Viveros PA [address] [place] [address] Phone: tel: fax: [address] [place] [address] Referral ID Status Reason Start Date Expiration Date Visits Re quested Visits Authorized [id number] Closed 02/14/2024 03/14/2024 1 1 Encounter Details Date Type Department Care Team (Latest Contact Info) Description 02/24/2024 10:15 AM CDT - 02/24/2024 11:59 PM CDT Hospital Encounter [facility] Medical Office Building [address] [place] [address] Facet hypertrophy of lumbar region; Chronic right SI joint pain Discharge Disposition: Discharge to home or self care Social History Tobacco Use Types Packs/Day Years [...] on file Legal Sex Male 1:20 AM EYE SURGEON Gender Identity Not on file Sexual Orientation Not on file documented as of this encounter Medications at Time of Discharge acetaminophen-cod eine (TYLENOL with CODEINE #3) 300-30 mg per tablet TAKE 1 TABLET BY MOUTH EVERY 4 HOURS NEEDED FOR PAIN 03/06/2021 ALPRAZolam (XANAX) 1 mg tablet TK 1/2 TO 1 T PO BID PRF ANXIETY 5 11/21/2017 amitriptyline (ELAVIL) 10 mg tablet Take 1 tablet (10 mg total) by mouth nightly 02/06/2021 amLODIPine (NORVASC) 5 mg tablet Take 1 tablet (5 mg total) by mouth every morning 01/31/2021 BD SAFETYGLIDE SYRINGE 3 mL 23 x 1 syringe U UTD 5 11/26/2018 cholecalciferol (VITAMIN D-3) 50,000 unit capsule Take 1 capsule (50,000 Units total) by mouth 08/28/2022 CIALIS 20 mg tablet TK 1 T PO QD PRN 5 11/26/2017 cyanocobalamin (Vitamin B-12) 1,000 mcg/mL injection INJECT 1 ML Q 2 WEEKS UTD 4 12/10/2017 diphenoxylate-atr opine (LOMOTIL) 2.5-0.025 mg per tablet Take 1 tablet by mouth 3 (three) times a day as needed 5 06/19/2018 folic acid (FOLVITE) 1 mg tablet Take 1 tablet (1 mg total) by mouth every morning 3 10/25/2017 hydroCHLOROthiazi de (HYDRODIURIL) 25 mg tablet Take 1 tablet (25 mg total) by mouth as needed HYDROcodone-aceta minophen (NORCO) 7.5-325 mg per tablet Take 1 tablet by mouth every 6 (six) hours as needed for pain hyoscyamine (LEVSIN) 0.125 mg tabletIndications :Crohn's disease of small and large intestines with complication (HCC),Abdominal spasms TAKE 1 TABLET(0.125 MG) BY MOUTH EVERY 6 HOURS NEEDED FOR CRAMPING OR DIARRHEA/ SPASMS 120 tablet 2 10/25/2021 irbesartan (AVAPRO) 300 mg tablet Take 1 tablet (300 mg total) by mouth every morning 01/30/2021 lansoprazole (PREVACID) 15 mg capsule Take 1 capsule (15 mg total) by mouth 2 (two) times a day 10/12/2016 magnesium oxide,aspartate,c itr 400 mg magnesium capsule Take 1 capsule by mouth as needed 10/12/2016 montelukast (SINGULAIR) 10 mg tablet Take 1 tablet (10 mg total) by mouth as needed 1 07/10/2018 nebivoloL (BYSTOLIC) 5 mg tablet Take 1 tablet (5 mg total) by mouth daily 12/16/2023 ondansetron (ZOFRAN) 8 mg tablet Take 1 tablet (8 mg total) by mouth as needed 5 12/01/2017 polyethylene glycol (GoLYTELY) 236-22.74-6.74 -5.86 gram solutionIndicatio ns:Crohn's disease of small and large intestines with complication (HCC) Drink 240 ml the day before your Colonoscopy - PLEASE FOLLOW PREP INSTRUCTIONS GIVEN BY DR MCLEAN OFFICE 240 mL 09/25/2022 sulfamethoxazole- trimethoprim (BACTRIM DS) 800-160 mg per tablet Take 1 tablet by mouth nightly at bedtime 07/12/2022 sulfuric acid-sulfonat. phenoL (DEBACTEROL) 30-50 % swab swab For external use only; avoid contact with eyes. Prior to application/treat ment, the ulcerated mucosal area should be thoroughly [...] almost immediately after the rinse. 24 each 02/19/2023 testosterone cypionate (DEPO-TESTOTERONE ) 200 mg/mL injection INJ 1 ML IM Q WK 5 11/29/2017 zolpidem (AMBIEN) 10 mg tablet Take 1 tablet (10 mg total) by mouth nightly as needed 5 12/13/2017 adalimumab-adaz (Hyrimoz,CF, Pen) 40 mg/0.4 mL pen injector Inject 40 mg under the skin every 14 (fourteen) days 0.8 mL 2 01/22/2024 4 nystatin 100,000 unit/mL suspensionIndicat ions:oral candidiasis Shake well. Swish and swallow 5 ml twice daily for 14 days 140 mL 02/11/2023 4 documented as of this encounter Discharge Disposition Disposition Code Departure Means Destination Discharge to home or self care documented in this encounter Plan of Treatment Upcoming Encounters Date Type Department Care Team (Late st Contact Info) Description 05/22/2024 10:45 AM [facility] Hospital Encounter [facility] Endoscopy [address] [address] Nikolay Boucher MD [address] [place] [address] 05/22/2024 10:45 AM EYE SURGEON - 05/22/2024 11:15 AM [facility] Surgery [facility] Endoscopy [address] [address] Nikolay Boucher MD [address] [place] [address] EGD Scheduled Procedures Name Priority Associated Diagnoses Date/Ti me ESOPHAGOGASTRODUODENOSCOPY Crohn's disease of both small and large intestine with intestinal obstruction (HCC) 05/22/2024 10:45 AM EYE SURGEON documented as of this encounter Procedures Procedure Name Priority Date/Time Associated Diagnosis Comments CT LUMBAR SPINE WO CONTRAST Schedule Routine, Read Routine (OP Routine) 02/24/2024 10:25 AM CDT Facet hypertrophy of lumbar region Chronic right SI joint pain documented in this encounter Results * CT Lumbar Spine [...] pelvis dated 01/25/2022. FINDINGS: SEGMENTATION: ?? 5 otk-fft-jqnfjkd lumbar type vertebral bodies. ALIGNMENT: ?? Mild [...] stenosis. ??Lateral recess effacement on both sides. ??Lcuy-dw-ejexmtbk left and mild right osseous neural foraminal narrowing. L5-S1: Disc bulge with marginal spur formation. ??Thickened ligamentum flavum and facet arthropathy. ??Proliferation of epidural fat. ??Tnnb-de-adrcnafl osseous spinal canal stenosis. ??Severe lateral recess [...] PM T: ??02/25/2024 4:33 PM Report ID: [id number] Reading Location: ??[id number] Procedure Note Tate Richardson, DO - 02/25/2024 [...] abdomenand pelvis dated 01/25/2022. FINDINGS: SEGMENTATION: 5 qyh-qax-krmyxtz lumbar type vertebral bodies. ALIGNMENT: Mild retrolisthesis [...] stenosis. Lateral recess effacement on both sides. Jrbi-vo-umkyjhaq left and mild right osseousneural foraminal narrowing. L5-S1: Disc bulge with marginal spur formation. Thickened ligamentumflavum and facet arthropathy. Proliferation of epidural fat. Iqmp-wy-wpyyxzhu osseous spinal canal stenosis. Severe lateral recess [...] 4:33 PM - Electronically signed by Tate iRchardson D.O. AP: SOLE Report ID: [id number] Reading Location: [id number] Michael ABAD IMKaylen CT PROCEDURES Final R esult documented in this encounter Visit Diagnoses Diagnosis Facet hypertrophy of lumbar region Chronic right SI joint pain Disorders of sacrum Crohn's disease of both small and large intestine with intestinal obstruction (HCC) documented in this encounter Care Teams Line Dancer Relationship Specialty Start Date End Date Tip Armenta MD [address] [address] PCP - General Family Medicine 03/18/19 Eleanor Ramon MD [address] [facility] [address] [place] [address] Medical Oncologist/Medical Services Manager Hematology 07/12/20 documented as of this encounter
--- OUTSIDE RECORDS SUMMARY | 2024-05-18 22:11 | XMS_ITS | Encounter Summary ---
Author Organization [facility] Address [address] [facility] [address] [place] [address] Phone Care Team Providers Care Doweling Machine Operator Name Role Phone Tip Armenta MD Primary Care Provider [phone] Eleanor Ramon MD Unavailable [phone] Encounter Details Date Type Department Care Team (Late st Contact Info) Description 02/14/2024 Telephone [facility] [address] [facility] Medical Office Building [address] [place] [address] Michael Viveros PA [address] [place] [address] Social History Tobacco Use Types [...] on file Legal Sex Male 1:20 AM TELEVISION INSPECTOR Gender Identity Not on file Sexual Orientation Not on file documented as of this encounter Miscellaneous Notes * Telephone Encounter - Jania Wen - 02/27/2024 5:05 AM CDT Radiology reports scanned into chart * Telephone Encounter - Sarah Cavazos - 02/14/2024 1:25 PM CDT Shyam Sarkar, I have your CT scheduled at [facility] on 02/24/24. Please come to Medical Building [address]; [address] for your imaging. Once complete, Michael will review and call you with your results. If you have any questions please reach out through [employer] or call our office at [phone]. Thank you! * Telephone Encounter - Sarah Cavazos - 02/14/2024 1:25 PM CDT ----- Message from POLLO Craft sent at 02/14/2024 9:42 AM CDT ----- Regarding: CT scan at [place] Can we simply schedule a CT lumbar spine at [place]? I can just call him with the results. [place]been to that [place] location, so a [employer] message with the details is probably all he needs etc. documented in this encounter Plan of Treatment Upcoming Encounters Date Type Department Care Team (Late st Contact Info) Description 05/22/2024 10:45 AM TELEVISION INSPECTOR Hospital Encounter [facility] Endoscopy [address] [address] Nikolay Boucher MD [address] [place] [address] 05/22/2024 10:45 AM TELEVISION INSPECTOR - 05/22/2024 11:15 AM TELEVISION INSPECTOR Surgery [facility] Endoscopy [address] [address] Nikolay Boucher MD [address] [place] [address] EGD Scheduled Procedures Name Priority Associated Diagnoses Date/Ti me ESOPHAGOGASTRODUODENOSCOPY Crohn's disease of both small and large intestine with intestinal obstruction (HCC) 05/22/2024 10:45 AM TELEVISION INSPECTOR documented as of this encounter Visit Diagnoses Not on filedocumented in this encounter Care Teams Doweling Machine Operator Relationship Specialty Start Date End Date Tip Armenta MD [address] [address] PCP - General Family Medicine 03/18/19 Eleanor Ramon MD [address] [place] [address] Medical Oncologist/Instrument Mechanic Hematology 07/12/20 documented as of this encounter
--- OUTSIDE RECORDS SUMMARY | 2024-05-18 22:12 | XMS_ITS | Encounter Summary ---
Author Organization [facility] Address [address] [place] [address] Phone Care Team Providers Care Oral Surgery Assistant Name Role Phone Tip Armenta MD Primary Care Provider [phone] Eleanor Ramon MD Unavailable [phone] Encounter Details Date Type Department Care Team (Late st Contact Info) Description 10/28/2023 Telephone [facility] Neurosurgery [address] [facility] Advanced Medicine 6th [place] [address] [place] [address] Syeda Nolan PA [address] [place], [place] [id number] Social History Tobacco Use Types Packs/Day Years [...] on file Legal Sex Male 1:20 AM NEEDLE LOOM SETTER Gender Identity Not on file Sexual Orientation Not on file documented as of this encounter Ordered Prescriptions Prescription Sig Dispense Quantity Refills Last Filled Start Date End Date cyclobenzaprine (FLEXERIL) 5 mg tabletIndications: Muscle Spasm Take 1 tablet (5 mg total) by mouth 3 (three) times a day as needed for muscle spasms 90 tablet 11/11/2023 4 cyclobenzaprine (FLEXERIL) 5 mg tablet Take 1 tablet (5 mg total) by mouth 3 (three) times a day as needed for muscle spasms for up to 15 days 45 tablet 10/28/2023 4 methylPREDNISolone (Medrol, Uvaldo,) 4 mg Dosepack Take as directed on package 1 packet 10/28/2023 4 documented in this encounter Miscellaneous Notes * Addendum Note - Syeda Nolan PA - 11/11/2023 10:43 AM CDTAddended by: SYEDA NOLAN on: 11/11/2023 10:43 AM Modules accepted: Orders * Telephone Encounter - Syeda Nolan PA - 11/11/2023 10:43 AM CDT Sure no problem. Rx sent * Telephone Encounter - Sandy Hernandez CMA - 11/11/2023 10:23 AM CDT Patient spouse calling states the cyclobenzaprine has really helped the patient and wanting to knowif JT will refill this until the patient can be seen in december * Telephone Encounter - Yoselin Head CMA - 10/28/2023 11:25 AM CDT Called pharmacy to advise and pt to inform cyclobenzaprine as needed, pt aware of Medrol dose pack as well. * Telephone Encounter - Yoselin Head CMA - 10/28/2023 10:19 AM CDT [facility] pharmacy called to advise of pt other prescriptions, called pt to confirm pt is taking the following, please advise if to continue with sending muscle relaxer cyclobenzaprine or cancel at this time. Pt taking; Tylenol with codeine 300-30mg 4-6 tablets per day Alprazolam 1mg tablets, reports one tablet daily Ambien- as needed (Approx 5 days per month) * Telephone Encounter - Yoselin Head CMA - 10/28/2023 8:14 AM CDT Pt spouse called to report pain in lower back that has increased since moving a piece of heavy machinery at home. Pt denies any urine or bowel incontinence, no weakness or numbness, pt rates pain 8/10 with shooting pain down bilateral legs. Pt taking Tylenol and Ibuprofen as directed with no reliefof symptoms. Pt is scheduled 01/15/24 as first available appt, pt is asking if any earlier appts are available. documented in this encounter Plan of Treatment Upcoming Encounters Date Type Department Care Team (Late st Contact Info) Description 05/22/2024 10:[address] [facility] Hospital Encounter [facility] Endoscopy [address] [place] [address] Nikolay Boucher MD [address] [place] [address] 05/22/2024 10:45 AM NEEDLE LOOM SETTER - 05/22/2024 11:[address] [facility] Surgery [facility] Endoscopy [address] [place] [address] Nikolay Boucher MD [address] [place] [address] EGD Scheduled Procedures Name Priority Associated Diagnoses Date/Ti me ESOPHAGOGASTRODUODENOSCOPY Crohn's disease of both small and large intestine with intestinal obstruction (HCC) 05/22/2024 10:45 AM NEEDLE LOOM SETTER documented as of this encounter Visit Diagnoses Not on filedocumented in this encounter Discontinued Medications Medication Sig Discontinue Reason Start Date End Da te cyclobenzaprine (FLEXERIL) 5 mg tablet Take 1 tablet (5 mg total) by mouth 3 (three) times a day as needed for muscle spasms 02/16/2021 03/18/2021 cyclobenzaprine (FLEXERIL) 5 mg tablet Take 1 tablet (5 mg total) by mouth 3 (three) times a day as needed for muscle spasms for up to 15 days Reorder 10/28/2023 11/11/2023 documented as of this encounter Care Teams Oral Surgery Assistant Relationship Specialty Start Date End Date Tip Armenta MD [address] [address] PCP - General Family Medicine 03/18/19 Eleanor Ramon MD [address] [place] [address] Medical Oncologist/Horticultural Specialty Grower Inside Hematology 07/12/20 documented as of this encounter
--- OUTSIDE RECORDS SUMMARY | 2024-05-18 22:12 | XMS_ITS | Encounter Summary ---
Author Organization [facility] Address [address] [place] [address] Phone Care Team Providers Care Glass Furnace Operator Name Role Phone Tip Armenta MD Primary Care Provider [phone] Eleanor Ramon MD Unavailable [phone] Encounter Details Date Type Department Care Team (Late st Contact Info) Description 04/02/2023 Orders Only [facility] Hematology [address] [facility] Advanced Medicine 7th [place] [address] [place] [address] Tamiko Chávez, GUEVARA Iron deficiency anemia, unspecified iron deficiency anemia type (Primary Dx) Social History Tobacco Use Types Packs/Day Years Used Date Smoking Tobacco: Never Smokeless Tobacco: Never AUDIT-C Answer Date Recorded Q1: How often do you have a drink containing alc ohol? Never 09/28/2022 Average Number of Drinks Not on file 023 Frequency of Binge Drinking Not on file 0 09/2022 Personal Safety Answer Date Recorded Have you ever been in or are you currently in a harmful physical or emotional relationship or is someone making you feel afraid or unsafe? Denies 09/28/2022 Sex and Gender Information Value Date Recorded Sex Assigned at Not on file Legal Sex Male 1:20 AM CROWN ATTACHER Gender Identity Not on file Sexual Orientation Not on file documented as of this encounter Plan of Treatment Upcoming Encounters Date Type Department Care Team (Late st Contact Info) Description 05/22/2024 10:45 AM CROWN ATTACHER Hospital Encounter [facility] Endoscopy [address] [place] [address] Nikolay Boucher MD [address] [place] [address] 05/22/2024 10:45 AM CROWN ATTACHER - 05/22/2024 11:15 AM CROWN ATTACHER Surgery [facility] Endoscopy [address] [address] Nikolay Boucher MD [address] [place] [address] EGD Scheduled Procedures Name Priority Associated Diagnoses Date/Ti me ESOPHAGOGASTRODUODENOSCOPY Crohn's disease of both small and large intestine with intestinal obstruction (HCC) 05/22/2024 10:45 AM CROWN ATTACHER documented as of this encounter Visit Diagnoses Diagnosis Iron deficiency anemia, unspecified iron deficiency anemia type- Primary Crohn's disease of both small and large intestine with intestinal obstruction (HCC) documented in this encounter Orders Appointment Requests Count Last Ordered Date Fi rst Ordered Date ONCBCN INFUSION APPT REQUEST 1 04/04/2023 documented in this encounter Care Teams Glass Furnace Operator Relationship Specialty Start Date End Date Tip Armenta MD [address] [address] PCP - General Family Medicine 03/18/19 Eleanor Ramon MD [address] [place] [address] Medical Oncologist/Nitrocellulose Operator Hematology 07/12/20 documented as of this encounter
--- OUTSIDE RECORDS SUMMARY | 2024-05-18 22:12 | XMS_ITS | Encounter Summary ---
Author Organization [facility] Address [address] [place] [address] Phone Care Team Providers Care Tool And Die Designer Name Role Phone Tip Armenta MD Primary Care Provider [phone] Eleanor Ramon MD Unavailable [phone] Encounter Details Date Type Department Care Team (Late st Contact Info) Description 08/15/2023 Telephone [facility] Gastroenterology [address] [facility] 12th [place] [address] [place] [address] Ashley Castillo CMA Social History Tobacco Use Types Packs/Day Years Used Date Smoking Tobacco: Never Smokeless Tobacco: Never AUDIT-C Answer Date Recorded Q1: How often do you have a drink containing alc ohol? Never 09/28/2022 Average Number of Drinks Not on file 023 Frequency of Binge Drinking Not on file 09/2022 Personal Safety Answer Date Recorded Have you ever been in or are you currently in a harmful physical or emotional relationship or is someone making you feel afraid or unsafe? Denies 09/28/2022 Sex and Gender Information Value Date Recorded Sex Assigned at Not on file Legal Sex Male 1:20 AM HEALTH INFORMATION PROVIDER Gender Identity Not on file Sexual Orientation Not on file documented as of this encounter Miscellaneous Notes * Telephone Encounter - Ashley Castillo CMA - 09/20/2023 3:46 PM CDT PA for Humira was denied. An appeal will not be submitted. * Telephone Encounter - Ashley Castillo CMA - 09/17/2023 2:48 PM CDT Spoke with Willa to check on status of PA for Humira - PA was not received although it was initiated through CMM. Verbally initiated PA by phone. Will set reminder to check status. * Telephone Encounter - Ashley Castillo CMA - 08/15/2023 10:51 AM CDT Ramos: [id number]) Humira Pen (CF) 40MG/0.4ML pen-injector kit PA initiated through CMM documented in this encounter Plan of Treatment Upcoming Encounters Date Type Department Care Team (Late st Contact Info) Description 05/22/2024 10:45 AM HEALTH INFORMATION PROVIDER Hospital Encounter [facility] Endoscopy [address] [place] [address] Nikolay Boucher MD [address] [place] [address] 05/22/2024 10:45 AM HEALTH INFORMATION PROVIDER - 05/22/2024 11:15 AM HEALTH INFORMATION PROVIDER Surgery [facility] Endoscopy [address] [place] [place] [address] Nikolay Boucher MD [address] [place] [address] EGD Scheduled Procedures Name Priority Associated Diagnoses Date/Ti me ESOPHAGOGASTRODUODENOSCOPY Crohn's disease of both small and large intestine with intestinal obstruction (HCC) 05/22/2024 10:45 AM HEALTH INFORMATION PROVIDER documented as of this encounter Visit Diagnoses Not on filedocumented in this encounter Care Teams Tool And Die Designer Relationship Specialty Start Date End Date Tip Armenta MD [address] [address] PCP - General Family Medicine 03/18/19 Eleanor Ramon MD [address] [facility] [address] [place] [address] Medical Oncologist/Table Machine Operator Hematology 07/12/20 documented as of this encounter
--- OUTSIDE RECORDS SUMMARY | 2024-05-18 22:12 | XMS_ITS | Encounter Summary ---
Author Organization [facility] Address [address] [place] [address] Phone Care Team Providers Care Reel Tender Name Role Phone Tip Armenta MD Primary Care Provider [phone] Eleanor Ramon MD Unavailable [phone] Encounter Details Date Type Department Care Team (Late st Contact Info) Description 03/15/2023 Orders Only [facility] Gastroenterology [address] [facility] Advanced Medicine 12th [place] [address] [place] [address] Paige Louise, hoop machine operator Crohn's disease of small and large intestines with complication (HCC) Social History Tobacco Use Types Packs/Day Years [...] on file Legal Sex Male 1:20 AM WOOD HEEL FLAP TRIMMER Gender Identity Not on file Sexual Orientation Not on file documented as of this encounter Ordered Prescriptions Prescription Sig Dispense Quantity Refills Last Filled Start Date End Date adalimumab (Humira,CF, Pen) 40 mg/0.4 mL pen injector kitIndications:Fire Prevention Specialist hn's disease of small and large intestines with complication (HCC) Inject 0.4 mL (40 mg total) under the skin every 14 (fourteen) days Safety labs required every 3 months for med refills, next labs due 05/2023. 2 each 2 03/15/2023 documented in this encounter Plan of Treatment Upcoming Encounters Date Type Department Care Team (Late st Contact Info) Description 05/22/2024 10:45 AM WOOD HEEL FLAP TRIMMER Hospital Encounter [facility] Endoscopy [address] [place] [address] Nikolay Boucher MD [address] [place], [place] [id number] 05/22/2024 10:45 AM WOOD HEEL FLAP TRIMMER - 05/22/2024 11:15 AM WOOD HEEL FLAP TRIMMER Surgery [facility] Endoscopy [address] [place] [address] Nikolay Boucher MD [address] [place] [address] EGD Scheduled Procedures Name Priority Associated Diagnoses Date/Ti nj ESOPHAGOGASTRODUODENOSCOPY Crohn's disease of both small and large intestine with intestinal obstruction (HCC) 05/22/2024 10:45 AM WOOD HEEL FLAP TRIMMER documented as of this encounter Visit Diagnoses Diagnosis Crohn's disease of small and large intestines with complication (HCC) Crohn's disease of both small and large intestine with intestinal obstruction (HCC) documented in this encounter Discontinued Medications Medication Sig Discontinue Reason Start Date End Da te adalimumab (Humira,CF, Pen) 40 mg/0.4 mL pen injector kitIndications:Crohn's disease of small and large intestines with complication (HCC) Inject 0.4 mL (40 mg total) under the skin every 14 (fourteen) days Safety labs required every 3 months for med refills, next labs due 12/2022. Reorder 09/28/2022 03/15/2023 documented as of this encounter Care Teams Reel Tender Relationship Specialty Start Date End Date Tip Armenta MD [address] [address] PCP - General Family Medicine 03/18/19 Eleanor Ramon MD [address] [facility] [address] [place] [address] Medical Oncologist/Home Advisor Hematology 07/12/20 documented as of this encounter
--- OUTSIDE RECORDS SUMMARY | 2024-05-18 22:12 | XMS_ITS | Encounter Summary ---
Author Organization [facility] Address [address] [place] [address] Phone Care Team Providers Care Delicatessen Goods Stock Clerk Name Role Phone Tip Armenta MD Primary Care Provider [phone] Eleanor Ramon MD Unavailable [phone] Reason for Visit * Reason Comments OP Infusion * Episode Based Medications (Routine) - Closed Specialty Diagnoses / Procedures Referred By Contac t Referred To Contact Oncology Diagnoses Other iron deficiency anemia Erythrocytosis Procedures WY INJ FERRIC CARBOXYMALTOS 1MG FERRIC CARBOXYMALTOSE (INJECTAFER) INFUSION Eleanor Ramon MD [address] [place] [address] Phone: tel: fax: [facility] Oncology [address] [place] [address] Phone: tel: Referral ID Status Reason Start Date Expiration Date Visits Re quested Visits Authorized [id number] Closed 04/03/2023 07/03/2023 1 12 Encounter Details Date Type Department Care Team (Late st Contact Info) Description 12/07/2022 1:30 PM CDT Infusion [facility] Oncology [address] [place] [phone] Other iron deficiency anemia (Primary Dx); Iron deficiency anemia, unspecified iron deficiency anemia type; Erythrocytosis Social History Tobacco Use Types Packs/Day Years [...] on file Legal Sex Male 1:20 AM ACCOUNTING FILE CLERK Gender Identity Not on file Sexual Orientation Not on file documented as of this encounter Last Filed Vital Signs Vital Sign Reading Time Taken Comments Blood Pressure 108/71 12/07/2022 1:45 PM CDT Pulse 75 12/07/2022 1:45 PM CDT Temperature 35.8 ??C (96.4 ??F) 12/07/2022 1:45 PM CD T Respiratory Rate 18 12/07/2022 1:45 PM CDT Oxygen Saturation 95% 12/07/2022 1:45 PM CDT Inhaled Oxygen Concentration - - Weight 97.5 kg (215 lb) 12/07/2022 1:45 PM CDT Height - - Body Mass Index 27.6 09/28/2022 6:24 AM CDT documented in this encounter Nursing Notes * Sari Ashby, GUEVARA - 12/07/2022 1:30 PM CDT Oncology Nursing Note [facility] ONCOLOGY Mello Herbert is a 57 y.o. male who presents for treatment cycle 6 of Injectafer Pre-treatment Nursing Assessment Nursing Assessment Appetite: Good Diarrhea: Yes (Chorns) Constipation: No Last BM Date: 12/07/22 Existing Patients: Any falls since your last visit?: No New Patients: Any falls since your last visit?: N/A Fatigue: Constant Mouth Sores: No Nausea/Vomiting: No Neurological symptoms: No LOC: Alert, Awake Orientation: Oriented x4 Behavior: Calm Speech: Clear Language: No aphasia Vision: At baseline Pain: No (connective tissue pain) Peripheral Neuropathy: No Pt states has potential to be ?: N/A Shortness of Breath?: No Swelling: No BP: 108/71 Temp: (!) 35.8 ??C (96.4 ??F) Temp src: Tympanic Pulse: 75 Resp: 18 SpO2: 95 % Weight: 97.5 kg (215 lb) Treatment Patient: does not require labs today. Pre blood return: Brisk Mello Herbert tolerated treatment well. Patient was frequently observed and monitored throughout the administration of their treatment. Additional Notes: No reaction noted. Patient took premedications at home. 30 minute observation completed following infusion. Post blood return: Brisk IV access post infusion: NS Patient Education Treatment Education: Information/teaching given to patient including symptom management, process and procedure related to today's visit, and when to notify MD Response: Verbalizes understanding Discharge Plan Discharge instructions given to patient. Future appointments given and reviewed with treatment plan. Discharge Mode: Ambulatory Accompanied by: Spouse Discharged To: Home documented in this encounter Plan of Treatment Upcoming Encounters Date Type Department Care Team (Late st Contact Info) Description 05/22/2024 10:45 AM ACCOUNTING FILE CLERK Hospital Encounter [facility] Endoscopy [address] [place] [address] Nikolay Boucher MD [address] [facility] [place] [address] 05/22/2024 10:45 AM ACCOUNTING FILE CLERK - 05/22/2024 11:15 AM ACCOUNTING FILE CLERK Surgery [facility] Endoscopy [address] [place] [address] Nikolay Boucher MD [address] [facility] [place] [address] EGD Scheduled Procedures Name Priority Associated Diagnoses Date/Ti il ESOPHAGOGASTRODUODENOSCOPY Crohn's disease of both small and large intestine with intestinal obstruction (HCC) 05/22/2024 10:45 AM ACCOUNTING FILE CLERK documented as of this encounter Visit Diagnoses Diagnosis Other iron deficiency anemia- Primary Iron deficiency anemia, unspecified iron deficiency anemia type Erythrocytosis Polycythemia, secondary Crohn's disease of both small and large intestine with intestinal obstruction (HCC) documented in this encounter Administered Medications Inactive Administered Medications - up to 3 most recent administrations Medication Order MAR Action Action Date Dose Rate Site ferric carboxymaltose (INJECTAFER) 750 mg in sodium chloride 0.9% 250 mL IVPB 750 mg, intravenous, at 795 mL/hr, Administer over 20 Minutes, Once, On Sat12/07/22 at 1430, For 1 doseIndications:Other iron deficiency anemia New Bag 12/07/2022 2:27 PM CDT 750 mg 795 mL/hr documented in this encounter Orders Medications Ordered That Leon ht Not Have Been Administered Count Last Ordered Date First Ordered Date acetaminophen (TYLENOL) tablet 650 mg 1 diphenhydrAMINE (BENADRYL) tab/cap 25 mg 1 12/07/2022 ondansetron (ZOFRAN) tablet 4 mg 1 12/08/19 Nursing Count Last Ordered Date First Orde red Date 1:1 OBSERVATION 1 12/07/2022 Appointment Requests Count Last Ordered Date Fi rst Ordered Date ONCBCN INFUSION APPT REQUEST 1 12/07/2022 documented in this encounter Care Teams Delicatessen Goods Stock Clerk Relationship Specialty Start Date End Date Tip Armenta MD [address] [address] PCP - General Family Medicine 03/18/19 Eleanor Ramon MD [address] [facility] [address] [place] [address] Medical Oncologist/Corporate Security Officer Hematology 07/12/20 documented as of this encounter
--- OUTSIDE RECORDS SUMMARY | 2024-05-18 22:12 | XMS_ITS | Encounter Summary ---
Author Organization [facility] Address [address] [place] [address] Phone Care Team Providers Care Birdcage Assembler Name Role Phone Tip Armenta MD Primary Care Provider [phone] Eleanor Ramon MD Unavailable [phone] Reason for Visit * Reason Onset Date Comments Debacterol Approval 02/21/2023 Encounter Details Date Type Department Care Team (Late st Contact Info) Description 02/21/2023 Documentation [facility] Gastroenterology [facility] 12th [place] [address] [place] [address] Paige Louise CPhT Debacterol Approval Social History Tobacco Use Types Packs/Day Years [...] file Legal Sex Male 1:20 AM CLOTH WEIGHER Gender Identity Not on file Sexual Orientation Not on file documented as of this encounter Progress Notes * Paige Louise CPhT - 02/21/2023 2:49 PM CDT Images from the original note were not included. documented in this encounter Plan of Treatment Upcoming Encounters Date Type Department Care Team (Late st Contact Info) Description 05/22/2024 10:45 AM CLOTH WEIGHER Hospital Encounter [facility] Endoscopy [address] [place] [address] Nikolay Boucher MD [address] [place] [address] 05/22/2024 10:45 AM CLOTH WEIGHER - 05/22/2024 11:15 AM CLOTH WEIGHER Surgery [facility] Endoscopy [address] [place] [address] Nikolay Boucher MD [address] [place] [address] EGD Scheduled Procedures Name Priority Associated Diagnoses Date/Ti me ESOPHAGOGASTRODUODENOSCOPY Crohn's disease of both small and large intestine with intestinal obstruction (HCC) 05/22/2024 10:45 AM CLOTH WEIGHER documented as of this encounter Visit Diagnoses Not on filedocumented in this encounter Care Teams Birdcage Assembler Relationship Specialty Start Date End Date Tip Armenta MD [address] [address] PCP - General Family Medicine 03/18/19 Eleanor Ramon MD [address] [place], [place] [id number] Medical Oncologist/Miller Kiln Dried Salt Hematology 07/12/20 documented as of this encounter
--- OUTSIDE RECORDS SUMMARY | 2024-05-18 22:12 | XMS_ITS | Encounter Summary ---
Author Organization [facility] Address [address] [place] [address] Phone Care Team Providers Care Journeyman Powerhouse Operator Name Role Phone Tip Armenta MD Primary Care Provider [phone] Eleanor Ramon MD Unavailable [phone] Reason for Visit * Reason Onset Date Comments GI Symptoms 01/01/2024 Encounter Details Date Type Department Care Team (Late st Contact Info) Description 01/01/2024 Telephone [facility] Gastroenterology [address] [facility] 12th [place] [address] [place] [address] Ashley Castillo, ANODIZING LINE OPERATOR GI Symptoms Social History Tobacco Use Types Packs/Day Years [...] on file Legal Sex Male 1:20 AM BUMPER OPERATOR Gender Identity Not on file Sexual Orientation Not on file documented as of this encounter Miscellaneous Notes * Telephone Encounter - Jessica Ying RN - 01/03/2024 12:45 PM CDT ===View-only below this line=== ----- Message ----- From: Nikolay Boucher MD Sent: 01/02/2024 4:22 PM CDT To: Jessica Joyce RN I left a VM. Check stool studies, c diff, calpro, culture. Start entecort 9 mg x 30 days. Will decide on taper based on calpro and his response. Contacted patient to discuss recommendations. Stated that symptoms have improved and he feels back to baseline today. Reported that he had a small gap in therapy when he transitioned from Humira to Hyrimoz so he believes that was the culprit of symptoms. Advised to contact our office if symptoms return so that we can proceed with recommendations. Patient verbalized understanding. * Telephone Encounter - Ashley Castillo CMA - 01/01/2024 1:17 PM CDT Symptoms started approximately a week ago. Having diarrhea - watery stools. 12-14 days. Normal day is 6-7 times. Wakes up in the middle of thenight. No constipation No blood or mucus noticed No rectal pain or sharpness Having pressure and urgency Abdominal pain in the upper middle region above the navel area. Constant dull pain and rumbling in his stomach Nauseated, but no vomiting. Taking Zofran No changes in diet - feels a difference since starting Hyrimoz. No night sweats, fevers or antibiotic use No immunizations Feels very fatigued. Also doesn't feel like he's in a full flare, but thinks this is the beginning stage. documented in this encounter Plan of Treatment Upcoming Encounters Date Type Department Care Team (Late st Contact Info) Description 05/22/2024 10:45 AM BUMPER OPERATOR Hospital Encounter [facility] Endoscopy [address] [place] [address] Nikolay Boucher MD [address] [place] [address] 05/22/2024 10:45 AM BUMPER OPERATOR - 05/22/2024 11:15 AM BUMPER OPERATOR Surgery [facility] Endoscopy [address] [address] [place], [place] [address] Nikolay Boucher MD [address] [place] [address] EGD Scheduled Procedures Name Priority Associated Diagnoses Date/Ti me ESOPHAGOGASTRODUODENOSCOPY Crohn's disease of both small and large intestine with intestinal obstruction (HCC) 05/22/2024 10:45 AM BUMPER OPERATOR documented as of this encounter Visit Diagnoses Not on filedocumented in this encounter Care Teams Journeyman Powerhouse Operator Relationship Specialty Start Date End Date Tip Armenta MD [address] [address] PCP - General Family Medicine 03/18/19 Eleanor Ramon MD [address] [place] [address] Medical Oncologist/Bilingual Operator Hematology 07/12/20 documented as of this encounter
--- OUTSIDE RECORDS SUMMARY | 2024-05-18 22:12 | XMS_ITS | Encounter Summary ---
Author Organization [facility] Address [address] [place] [address] Phone Care Team Providers Care Sports Recruiter Name Role Phone Tip Armenta MD Primary Care Provider [phone] Eleanor Ramon MD Unavailable [phone] Encounter Details Date Type Department Care Team (Late st Contact Info) Description 04/01/2023 Telephone [facility] Hematology [address] [facility] 7th [place] [address] [place] [address] Blossom Domingo RN Social History Tobacco Use Types Packs/Day Years [...] on file Legal Sex Male 1:20 AM BEATER MACHINE OPERATOR Gender Identity Not on file Sexual Orientation Not on file documented as of this encounter Miscellaneous Notes * Telephone Encounter - Blossom Domingo RN - 04/01/2023 10:26 AM BEATER MACHINE OPERATOR Returned patient's call reference his recent iron labs with his PCP office. Unable to see labs in EPIC or Care Everywhere. Requested PCP office number ([phone]) so that we could request they be faxed to us. Patient informed that once we received the results and Dr. Ramon was able to review them that our office would be in touch to let him know if she thought he needed another dose of IV Iron. Patient verbalized understanding and was agreeable to plan. Phoned patient's PCP office and Becky stated she would be faxing us over those results today. ER MACHINE OPERATOR documented in this encounter Plan of Treatment Upcoming Encounters Date Type Department Care Team (Late st Contact Info) Description 05/22/2024 10:45 AM BEATER MACHINE OPERATOR Hospital Encounter [facility] Endoscopy [address] [place] [address] Nikolay Boucher MD [address] [place] [address] 05/22/2024 10:45 AM BEATER MACHINE OPERATOR - 05/22/2024 11:15 AM BEATER MACHINE OPERATOR Surgery [facility] Endoscopy [address] [place] [address] Nikolay Boucher MD [address] [place] [address] EGD Scheduled Procedures Name Priority Associated Diagnoses Date/Ti mn ESOPHAGOGASTRODUODENOSCOPY Crohn's disease of both small and large intestine with intestinal obstruction (HCC) 05/22/2024 10:45 AM BEATER MACHINE OPERATOR documented as of this encounter Visit Diagnoses Not on filedocumented in this encounter Care Teams Sports Recruiter Relationship Specialty Start Date End Date Tip Armenta MD [address] [address] PCP - General Family Medicine 03/18/19 Eleanor Ramon MD [address] [place] [address] Medical Oncologist/Industrial X Ray Operator Hematology 07/12/20 documented as of this encounter
--- OUTSIDE RECORDS SUMMARY | 2024-05-18 22:12 | XMS_ITS | Encounter Summary ---
Author Organization [facility] Address [address] [place] [address] Phone Care Team Providers Care Metrology Engineer Name Role Phone Tip Armenta MD Primary Care Provider [phone] Eleanor Ramon MD Unavailable [phone] Encounter Details Date Type Department Care Team (Late st Contact Info) Description 12/03/2022 Orders Only [facility] Hematology [address] [facility] Advanced Medicine 7th [place] [address] [place] [address] Tamiko Chávez, GUEVARA Iron deficiency [...] on file Legal Sex Male 1:20 AM INDUSTRIAL ORGANIZATION MANAGER Gender Identity Not on file Sexual Orientation Not on file documented as of this encounter Plan of Treatment Upcoming Encounters Date Type Department Care Team (Late st Contact Info) Description 05/22/2024 10:45 AM INDUSTRIAL ORGANIZATION MANAGER Hospital Encounter [facility] Endoscopy [address] [place] [address] Nikolay Boucher MD [address] [place] [address] 05/22/2024 10:45 AM INDUSTRIAL ORGANIZATION MANAGER - 05/22/2024 11:15 AM INDUSTRIAL ORGANIZATION MANAGER Surgery [facility] Endoscopy [address] [place] [address] Nikolay Boucher MD [address] [place] [address] EGD Scheduled Procedures Name Priority Associated Diagnoses Date/Ti me ESOPHAGOGASTRODUODENOSCOPY Crohn's disease of both small and large intestine with intestinal obstruction (HCC) 05/22/2024 10:45 AM INDUSTRIAL ORGANIZATION MANAGER documented as of this encounter Visit Diagnoses Diagnosis Iron deficiency anemia, unspecified iron deficiency anemia type- Primary Crohn's disease of both small and large intestine with intestinal obstruction (HCC) documented in this encounter Orders Appointment Requests Count Last Ordered Date Fi rst Ordered Date ONCBCN INFUSION APPT REQUEST 1 12/07/2022 documented in this encounter Care Teams Metrology Engineer Relationship Specialty Start Date End Date Tip Armenta MD [address] [address] PCP - General Family Medicine 03/18/19 Eleanor Ramon MD [address] [place] [address] Medical Oncologist/Crabber Hematology 07/12/20 documented as of this encounter
--- OUTSIDE RECORDS SUMMARY | 2024-05-18 22:12 | XMS_ITS | Encounter Summary ---
Author Organization [facility] Address [address] [place] [address] Phone Care Team Providers Care Substitute Nurse Name Role Phone Tip Armenta MD Primary Care Provider [phone] Eleanor Ramon MD Unavailable [phone] Reason for Referral * Diagnostic Imaging (Routine) - Closed Specialty Diagnoses / Procedures Referred By Contac t Referred To Contact Diagnoses Lumbar pain Procedures XR Scoliosis 6 or More Views Michael Viveros PA [address] [place] [address] Phone: tel: fax: [address] [address] Referral ID Status Reason Start Date Expiration Date Visits Re quested Visits Authorized [id number] Closed 01/07/2024 02/05/2025 1 1 Encounter Details Date Type Department Care Team (Late st Contact Info) Description 01/07/2024 Orders Only [facility] Neurosurgery [address] [facility] [address] [place] [address] Michael Viveros PA [address] [place] [address] Annular tear of lumbar disc (Primary Dx); Lumbar pain Social History Tobacco Use Types Packs/Day [...] on file 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 Endoscopy [id number] [address] Nikolay Boucher MD [address] [facility] [place] [address] 05/22/2024 10:45 AM HAIRSPRING FABRICATION SUPERVISOR - 05/22/2024 11:15 AM HAIRSPRING FABRICATION SUPERVISOR Surgery [facility] Endoscopy [address] [address] Nikolay Boucher MD [address] [place] [address] EGD Scheduled Procedures Name Priority Associated Diagnoses Date/Ti ne ESOPHAGOGASTRODUODENOSCOPY Crohn's disease of both small and large intestine with intestinal obstruction (HCC) 05/22/2024 10:45 AM HAIRSPRING FABRICATION SUPERVISOR documented as of this encounter Results * XR Scoliosis 6 or More Views (01/15/2024 9:30 AM CDT) Anatomical Region Laterality Modality Spine N/A Computed Radiogr aphy 01/15/2024 10:2 0 AM CDT Impressions 01/15/2024 10:38 AM CDT 1. ??Unchanged degenerative disc disease of the lumbar spine, moderate at L5-S1. Dictated by: Hank Soto M.D. The radiology attending physician has personally reviewed this study, and had reviewed and/or edited this written report and agrees with it. Electronically signed by: Neo Monk M.D. Narrative 01/15/2024 10:38 AM CDT EXAMINATION: XR SCOLIOSIS ??6 OR MORE VIEWS HISTORY: 58-year-old man with back pain. FINDINGS: 8 radiographs of the cervical, thoracic, lumbar spine are provided for interpretation. ??Comparison with radiographs of the cervical spine obtained on 02/21/2022 and radiographs of the cervical, thoracic, lumbar spine obtained on 10/19/2021. There is minimal levocurvature of the thoracic spine. ??There is leftward coronal imbalance and positive sagittal imbalance. ??There is no pelvic obliquity. There is moderate degenerative disc disease at L5-S1 and mild degenerative disc disease throughout the rest of the lumbar spine. There is retrolisthesis of L5 on S1 that does not correct with flexion or extension. ??There is a C6-C7 disc arthroplasty present. Procedure Note Neo Monk MD - 01/15/2024 EXAMINATION: XR SCOLIOSIS 6 OR MORE VIEWS [...] is a C6-C7 disc arthroplasty present. IMPRESSION: 1. Unchanged degenerative disc disease of the lumbar spine, moderate at L5-S1. Dictated by: Hank Soto M.D. The radiology attending physician has personally reviewed this study, and had reviewed and/or edited this written report and agrees with it. Electronically signed by: Neo Monk M.D. us Michael ABAD IMG XR PROCEDURES Final R esult documented in this encounter Visit Diagnoses Diagnosis Annular tear of lumbar disc- Primary Lumbar pain Lumbago Lumbar pain Lumbago Crohn's disease of both small and large intestine with intestinal obstruction (HCC) documented in this encounter Care Teams Substitute Nurse Relationship Specialty Start Date End Date Tip Armenta MD [email or web address] [address] PCP - General Family Medicine 03/18/19 Eleanor Ramon MD [address] [facility] [address] [place] [address] Medical Oncologist/Wash Oil Pump Operator Hematology 07/12/20 documented as of this encounter
--- OUTSIDE RECORDS SUMMARY | 2024-05-18 22:12 | XMS_ITS | Encounter Summary ---
Author Organization [facility] Address [address] [place] [address] Phone Care Team Providers Care Cork Grinder Name Role Phone Tip Armenta MD Primary Care Provider [phone] Eleanor Ramon MD Unavailable [phone] Reason for Visit * Reason Onset Date Comments Requesting Debacterol 02/18/2023 Encounter Details Date Type Department Care Team (Late st Contact Info) Description 02/18/2023 Telephone [facility] Gastroenterology [address] [facility] 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 phenoL (DEBACTEROL) 30-50 % swab swab For external use only; avoid contact with eyes. Prior to application/sandie tment, the ulcerated mucosal area should be thoroughly [...] immediately after the rinse. 24 each 02/19/2023 documented in this encounter Miscellaneous Notes * Addendum Note - Fransico Medina RN - 02/19/2023 8:21 AM CDTAddended by: FRANSICO MEDINA on: 02/19/2023 08:21 AM Modules accepted: Orders * Telephone Encounter - Fransico Medina RN - 02/19/2023 8:21 AM CDT Ok to fill per Dr. Boucher. RX sent to [facility] * Telephone Encounter - Fransico Medina RN - 02/18/2023 4:15 PM CDT Received a VM from patient. He is requesting a prescription for Debacterol swabs- quantity 24 to his [facility] pharmacy in [place], [place]. Pt says that this prescription is for cold sores. Pt called in last week (02/11)requesting refill on his Nystatin that Dr. Valenzuela had previously filled. 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 He says that it is only a matter of time before it is also in his throat. After discussing withJoanna, 1 refill of the Nystatin was authorized at that time. Last visit with Dr. Valenzuela was 07/2021. Pt is scheduled to see you on 04/16/23. Do you want to fill this for him? documented in this encounter Plan of Treatment Upcoming Encounters Date Type Department Care Team (Late st Contact Info) Description 05/22/2024 10:45 AM EQUINE DENTIST Hospital Encounter [facility] Endoscopy [address] [place] [address] Nikolay Boucher MD [address] [place] [address] 05/22/2024 10:45 AM EQUINE DENTIST - 05/22/2024 11:15 AM EQUINE DENTIST Surgery [facility] Endoscopy [address] [place] [address] Nikolay Boucher MD [address] [place] [address] EGD Scheduled Procedures Name Priority Associated Diagnoses Date/Ti me ESOPHAGOGASTRODUODENOSCOPY Crohn's disease of both small and large intestine with intestinal obstruction (HCC) 05/22/2024 10:45 AM EQUINE DENTIST documented as of this encounter Visit Diagnoses Not on filedocumented in this encounter Care Teams Cork Grinder Relationship Specialty Start Date End Date Tip Armenta MD [address] [address] PCP - General Family Medicine 03/18/19 Eleanor Ramon MD [address] [place], [place] [id number] Medical Oncologist/Accounts Receivable Associate Hematology 07/12/20 documented as of this encounter
--- OUTSIDE RECORDS SUMMARY | 2024-05-18 22:12 | XMS_ITS | Encounter Summary ---
Author Organization [facility] Address [address] [facility] [address] [place] [address] Phone Care Team Providers Care Rolling Machine Operator Automatic Name Role Phone Tip Armenta MD Primary Care Provider [phone] Eleanor Ramon MD Unavailable [phone] Encounter Details Date Type Department Care Team (Late st Contact Info) Description 04/16/2023 10:40 AM CRANE RIGGER Office Visit [facility] Gastroenterology [address] [facility] Building [address] [place] [address] Nikolay Boucher MD [address] [place] [address] High risk medications (not anticoagulants) long-term use (Primary Dx); Crohn's disease of both small and large intestine with intestinal obstruction (HCC) Social History Tobacco Use Types Packs/Day [...] on file Legal Sex Male 1:20 AM CRANE RIGGER Gender Identity Not on file Sexual Orientation Not on file documented as of this encounter Last Filed Vital Signs Vital Sign Reading Time Taken Comments Blood Pressure - - Pulse - - Temperature - - Respiratory Rate - - Oxygen Saturation - - Inhaled Oxygen Concentration - - Weight - - Height 188 cm (6' 2 ) 04/16/2023 10:55 AM CRANE RIGGER Body Mass Index - - documented in this encounter Progress Notes * Soraya Peng MD - 04/16/2023 10:40 AM CST Subjective NAME: Mello Herbert : 1965 DOS: 04/16/2023 Referred here Primary Care Physician: Tip Armenta MD Consult requested by: Tip Armenta MD Chief Complaint: Chron's, Neuropathy HPI Mello Herbert is a 57 y.o with past medical history of ileocolonic stricturing Crohn's disease, currently maintained in remission on Humira who presents today for follow-up. He presents to established care with a new GI provider. Chron's History Patient reports history of two abdominal surgeries in infancy, for tract behind belly button withrevision a few months later. He was diagnosed with ileocolonic Crohn's disease in 1989 with a small-bowel resection in 1989. He also reports having a Meckel's diverticulectomy around that time, with procedure taking five hours. He had been treated with prednisone in the past and some other therapies but cannot recall medication names. In 2005, patient underwent repeat ileocecal resection for anatomic striction by Dr. Mares as well as repeat ileocecal resect in 2009 by . Patient had beentreated with mercaptopurine (without response) , methotrexate (without response) remicade (with initial response, but discontinued in the context of severe pneumonia), and most recently on Humira. Infall 2020, anastomosis was revaluated and demonstrated mucosal remission while being maintained on Humira. Most recent colonoscopy 09/28/2022 confirmed mucosal remission. Interval History He was last seen by GI on 07/2021 via telehealth visit. Since his last visit, he reports he feels as if he is still in remission. He is currently on Humira 40 mg every 2 weeks. He has neuropathy, present for several years. He has not been evaluated by neurology for neuropathy. He feels that Humira may be contributing to neuropathy so inquires if possible to reduce dosing of Humira to help with neuropathy. He is taking gabapentin 100 mg BID and receives B12 injections twice a month for B12 deficiency. Regarding Chron's symptoms, he reports periodic stomach aches, but feels this is his normal as has had five surgeries. He has occasional bloating, abdominal cramping and reflux controlled on omeprazole 20 mg BID as well as nausea controlled by Zofran. He use Lomotil twice a day and will alternate with Imodium every once in while, mainly due to sweating while on Lomotil. He also takes tylenol codeine prn for diarrhea. He denies bleeding per rectum, fever, chills, recent illness, sob, chest pain. Most recent colonoscopy September 2022 showed normal colonic mucous and ileum and patent end-to-side ileo-colonic anastomosis. He obtained labs Feb 2023 with CRP wnl, Cr 1.39 higher than b/l but endorses not drinking a lot of water. He is currently taking Vit D supplementation and reports most recent VitD 35. CBC in Feb wnl but reports needed a blood transfusion several weeks ago and before that 6 months ago, but denies any known bleeding. He has a history of yearly chronic infusions. For HM, he declines COVID vaccine today and flu shot, as has never obtained flu shot. Past Medical History: Diagnosis Date Anemia Anxiety and depression Crohn's colitis (CMS/HCC) (HCC) GERD (gastroesophageal reflux disease) Hypertension Past Surgical History: Procedure Laterality Date CERVICAL DISC ARTHROPLASTY 2020 SMALL BOWEL RESECTION Patient Active Problem List Diagnosis Iron deficiency anemia Erythrocytosis Crohn's disease of both small and large intestine (HCC) Vitamin B12 deficiency Chronic diarrhea High risk medications (not anticoagulants) long-term use Cervical disc disorder with myelopathy of mid-cervical region Chronic hypertension Risk factors for obstructive sleep apnea Arthralgia Overweight with body mass index (BMI) 25.0-29.9 High risk medication use Nephrolithiasis Abdominal pain PVT (portal vein thrombosis) Abnormal level of blood mineral Chronic fatigue Cramp and spasm Crohn's disease of large intestine with other complication (HCC) Hernia of anterior abdominal wall Inguinal pain Mouth ulceration Postsurgical malabsorption, not elsewhere classified Vitamin D deficiency Prepatellar bursitis Stage 3a chronic kidney disease (HCC) Cellulitis Infection of right prepatellar bursa History of Crohn's disease Healthcare maintenance Current Outpatient Medications Medication Sig Dispense Refill acetaminophen-codeine (TYLENOL with CODEINE #3) 300-30 mg per tablet TAKE 1 TABLET BY MOUTH EVERY 4HOURS NEEDED FOR PAIN adalimumab (Humira,CF, Pen) 40 mg/0.4 mL pen injector kit Inject 0.4 mL (40 mg total) under the skin every 14 (fourteen) days Safety labs required every 3 months for med refills, next labs due 05/2023. 2 each 2 ALPRAZolam (XANAX) 1 mg tablet TK 1/ TO 1 T PO BID PRF ANXIETY 5 amitriptyline (ELAVIL) 10 mg tablet Take 1 tablet (10 mg total) by mouth nightly amLODIPine (NORVASC) 5 mg tablet Take 1 tablet (5 mg total) by mouth every morning BD SAFETYGLIDE SYRINGE 3 mL 23 x 1 syringe U UTD 5 cholecalciferol (VITAMIN D-3) 50,000 unit capsule Take 1 capsule (50,000 Units total) by mouth CIALIS 20 mg tablet TK 1 T PO QD PRN 5 cyanocobalamin (Vitamin B-12) 1,000 mcg/mL injection INJECT 1 ML Q 2 WEEKS UTD 4 diphenoxylate-atropine (LOMOTIL) 2.5-0.025 mg per tablet Take 1 tablet by mouth 3 (three) times a day as needed 5 folic acid (FOLVITE) 1 mg tablet Take 1 tablet (1 mg total) by mouth every morning 3 gabapentin (NEURONTIN) 300 mg capsule Take 1 capsule (300 mg total) by mouth 3 (three) times a day 270 capsule 0 hydroCHLOROthiazide (HYDRODIURIL) 25 mg tablet Take 1 tablet (25 mg total) by mouth as needed HYDROcodone-acetaminophen (NORCO) 7.5-325 mg per tablet Take 1 tablet by mouth every 6 (six) hours as needed for pain (Patient not taking: Reported on 02/21/2022) hyoscyamine (LEVSIN) 0.125 mg tablet TAKE 1 TABLET(0.125 MG) BY MOUTH EVERY 6 HOURS NEEDED FOR CRAMPING OR DIARRHEA/ SPASMS 120 tablet 2 irbesartan (AVAPRO) 300 mg tablet Take 1 tablet (300 mg total) by mouth every morning lansoprazole (PREVACID) 15 mg capsule Take 1 capsule (15 mg total) by mouth 2 (two) times a day magnesium oxide,aspartate,citr 400 mg magnesium capsule Take 1 capsule by mouth as needed montelukast (SINGULAIR) 10 mg tablet Take 1 tablet (10 mg total) by mouth as needed 1 nystatin 100,000 unit/mL suspension Shake well. Swish and swallow 5 ml twice daily for 14 days 140 mL 0 ondansetron (ZOFRAN) 8 mg tablet Take 1 tablet (8 mg total) by mouth as needed 5 polyethylene glycol (GoLYTELY) 236-22.74-6.74 -5.86 gram solution Drink 240 ml the day before your Colonoscopy - PLEASE FOLLOW PREP INSTRUCTIONS GIVEN BY DR MCLEAN OFFICE 240 mL 0 sulfamethoxazole-trimethoprim (BACTRIM DS) 800-160 mg per tablet Take 1 tablet by mouth nightly at bedtime sulfuric acid-sulfonat. phenoL (DEBACTEROL) 30-50 % swab swab For external use only; avoid contact with eyes. Prior to application/treatment, the ulcerated mucosal area should be thoroughly dried. After drying, apply solution coated applicator swab directly to the ulcerated area (most patients experience a brief stinging sensation immediately) and hold the applicator in contact with the ulcer for5 to 10 seconds using a rolling motion to completely cover the entire ulcer bed and rim. Thoroughlyrinse out the mouth with water and spit out the rinse water. The stinging sensation and ulcer pain will subside almost immediately after the rinse. 24 each 0 testosterone cypionate (DEPO-TESTOTERONE) 200 mg/mL injection INJ 1 ML IM Q WK 5 zolpidem (AMBIEN) 10 mg tablet Take 1 tablet (10 mg total) by mouth nightly as needed 5 No current facility-administered medications for this visit. Latex Family History Problem Relation Age of Onset No Known Problems Mother No Known Problems Father Social History Tobacco Use Smoking status: Never Smokeless tobacco: Never Substance and Sexual Activity Drug use: Never Sexual activity: Defer Alcohol Use: Not At Risk (09/28/2022) AUDIT-C Frequency of Alcohol Consumption: Never Average Number of Drinks: Not on file Frequency of Binge Drinking: Not on file ROS As outlined in HPI.All other systems negative. Vital Signs Ht 188 cm (6' 2 ) BMI 28.45 kg/m?? Wt Readings from Last 3 Encounters: 04/04/23 100.5 kg (221 lb 9.6 oz) 12/07/22 97.5 kg (215 lb) 09/28/22 102.1 kg (225 lb) Physical Exam GENERAL: Well-appearing, in no acute distress. HEENT: Sclerae anicteric. Oropharynx without lesion. NECK: Supple without lymphadenopathy. LUNGS: Clear to auscultation bilaterally. CARDIOVASCULAR: Regular rate and rhythm with no murmur. ABDOMEN: soft, non-tender; bowel sounds normal; no masses, no organomegaly; scars present EXTREMITIES: No clubbing, cyanosis or edema. SKIN: No rash or jaundice. NEUROLOGIC: Grossly nonfocal on simple observation with normal insight, memory, affect, and orientation Results: Lab Results Component Value Date WBC 8.2 03/13/2023 HGB 16.2 03/13/2023 HCT 49.3 03/13/2023 MCV 91.5 03/13/2023 LABPLAT 215 03/13/2023 Lab Results Component Value Date GLUCOSE 98 03/13/2023 CALCIUM 9.2 03/13/2023 SODIUM 137 03/13/2023 POTASSIUM 4.3 03/13/2023 CO2 32 03/13/2023 CHLORIDE 99 03/13/2023 BUNSER 13 03/13/2023 CREATININE 1.49 (H) 03/13/2023 Lab Results Component Value Date ALT 27 03/13/2023 AST 32 03/13/2023 ALKPHOS 86 03/13/2023 BILITOT 1.0 03/13/2023 Assessment/Plan Mello Herbert is 57 y.o with past medical history of ileocolonic stricturing Crohn's disease, currently maintained in remission on Humira who presents today for follow-up. Problem List Crohn's disease of both small and large intestine (HCC) Overview Year of diagnosis: 1989. Year symptoms began: [...] on Humira. 09/28/2022 Colonoscopy mucosal remission Current Assessment & Plan Clinical and endoscopic remission on adalimumab. His disease is primarily ileal so should not be atincreased risk of colon cancer. RTC 6 mos. Relevant Orders Hepatitis B core antibody, total Blood Hepatitis B surface antibody (immune status) Blood Hepatitis B Surface Antigen Blood TB test, quantiferon gold CBC with auto differential Comprehensive metabolic panel CRP (acute phase) High risk medications (not anticoagulants) long-term use - Primary Current Assessment & Plan All immunosuppressants increase the risk of infection [...] and in addition should follow with a compound finisher for skin cancer screening. There may be a small risk of heart failure so any new HF symptoms would prompt an evaluation and likely discontinuation of therapy. Relevant Orders Hepatitis B core antibody, total Blood Hepatitis B surface antibody (immune status) Blood Hepatitis B Surface Antigen Blood TB test, quantiferon gold CBC with auto differential Comprehensive metabolic panel CRP (acute phase) Orders Orders Placed This Encounter Procedures Hepatitis B core antibody, total Blood Standing Status: Future Number of Occurrences: 1 Standing Expiration Date: 10/14/2024 Hepatitis B surface antibody (immune status) Blood Standing Status: Future Number of Occurrences: 1 Standing Expiration Date: 10/14/2024 Hepatitis B Surface Antigen Blood Standing Status: Future Number of Occurrences: 1 Standing Expiration Date: 10/14/2024 TB test, quantiferon gold Standing Status: Future Number of Occurrences: 1 Standing Expiration Date: 04/16/2024 CBC with auto differential Standing Status: Standing Number of Occurrences: 4 Standing Expiration Date: 04/16/2024 Comprehensive metabolic panel Standing Status: Standing Number of Occurrences: 4 Standing Expiration Date: 04/16/2024 CRP (acute phase) Standing Status: Standing Number of Occurrences: 4 Standing Expiration Date: 04/16/2024 Nikolay Boucher MD Internal Medicine, PGY-2 Cosigned by Nikolay Boucher MD at 04/17/2023 7:08 AM CRANE RIGGER E RIGGER E RIGGER Associated attestation - Nikolay Boucher MD - 04/17/2023 7:08 AM CRANE RIGGER I have seen and examined the patient. I agree with the findings and plan of care as documented in the resident/fellow's note. My total encounter time on 04/16/2023 was 30 minutes which was spent in the activities documented in the note. This includes time spent prior to the visit and after the visit in direct care of the patient. This time does not include time spent in any separately reportable services. documented in this encounter Miscellaneous Notes * Assessment & Plan Note - Nikolay Boucher MD - 04/17/2023 7:06 AM CRANE RIGGER Associated Problem(s): High risk medications (not anticoagulants) [...] and in addition should follow with a compound finisher for skin cancer screening. There may be a small risk of heart failure so any new HF symptoms would prompt an evaluation and likely discontinuation of therapy. E RIGGER * Assessment & Plan Note - Nikolay Boucher MD - 04/17/2023 7:06 AM CRANE RIGGER Associated Problem(s): Crohn's disease of both small and large intestine (HCC) Clinical and endoscopic remission on adalimumab. His disease is primarily ileal so should not be atincreased risk of colon cancer. RTC 6 mos. E RIGGER documented in this encounter Plan of Treatment Upcoming Encounters Date Type Department Care Team (Late st Contact Info) Description 05/22/2024 10:45 AM CRANE RIGGER Hospital Encounter [facility] Endoscopy [address] [place] [address] Nikolay Boucher MD [address] [place] [address] 05/22/2024 10:45 AM CRANE RIGGER - 05/22/2024 11:15 AM CRANE RIGGER Surgery [facility] Endoscopy [address] [place] [address] Nikolay Boucher MD [address] [place] [address] EGD Scheduled Orders Name Type Priority Associated Diagnoses Orde r Schedule Hepatitis B core antibody, total Blood Microbiology Routine High risk medications (not anticoagulants) long-term use Crohn's disease of both small and large intestine with intestinal obstruction (HCC) Expected: 04/16/2023, Expires: 10/14/2024 Hepatitis B surface antibody (immune status) Blood Microbiology Routine High risk medications (not anticoagulants) long-term use Crohn's disease of both small and large intestine with intestinal obstruction (HCC) Expected: 04/16/2023, Expires: 10/14/2024 Hepatitis B Surface Antigen Blood Microbiology Routine High risk medications (not anticoagulants) long-term use Crohn's disease of both small and large intestine with intestinal obstruction (HCC) Expected: 04/16/2023, Expires: 10/14/2024 TB test, quantiferon gold Lab Routine High risk medications (not anticoagulants) long-term use Crohn's disease of both small and large intestine with intestinal obstruction (HCC) Expected: 04/16/2023, Expires: 04/16/2024 CBC with auto differential Lab Routine High risk medications (not anticoagulants) long-term use Crohn's disease of both small and large intestine with intestinal obstruction (HCC) every 3 months for 4 Occurrences starting 04/16/2023 until 04/16/2024 Comprehensive metabolic panel Lab Routine High risk medications (not anticoagulants) long-term use Crohn's disease of both small and large intestine with intestinal obstruction (HCC) every 3 months for 4 Occurrences starting 04/16/2023 until 04/16/2024 CRP (acute phase) Lab Routine High risk medications (not anticoagulants) long-term use Crohn's disease of both small and large intestine with intestinal obstruction (HCC) every 3 months for 4 Occurrences starting 04/16/2023 until 04/16/2024 Scheduled Procedures Name Priority Associated Diagnoses Date/Ti me ESOPHAGOGASTRODUODENOSCOPY Crohn's disease of both small and large intestine with intestinal obstruction (HCC) 05/22/2024 10:45 AM CRANE RIGGER documented as of this encounter Visit Diagnoses Diagnosis High risk medications (not anticoagulants) long-term use- Primary Encounter for long-term (current) use of other medications Crohn's disease of both small and large intestine with intestinal obstruction (HCC) Crohn's disease of both small and large intestine with intestinal obstruction (HCC) documented in this encounter Care Teams Rolling Machine Operator Automatic Relationship Specialty Start Date End Date Tip Armenta MD [address] [address] PCP - General Family Medicine 03/18/19 Eleanor Ramon MD [address] [place] [address] Medical Oncologist/Clothing Worker Hematology 07/12/20 documented as of this encounter
--- OUTSIDE RECORDS SUMMARY | 2024-05-18 22:12 | XMS_ITS | Encounter Summary ---
Author Organization [facility] Address [address] [facility] [address] [place] [address] Phone Care Team Providers Care Off Track Betting Manager Name Role Phone Tip Armenta MD Primary Care Provider [phone] Eleanor Ramon MD Unavailable [phone] Encounter Details Date Type Department Care Team (Late st Contact Info) Description 04/03/2023 Telephone [facility] Oncology [address] [facility] [address] [place] [address] Eleanor Ramon MD [address] [place] [address] Social History Tobacco Use Types [...] on file Legal Sex Male 1:20 AM HEAVY DUTY MECHANIC Gender Identity Not on file Sexual Orientation Not on file documented as of this encounter Miscellaneous Notes * Telephone Encounter - Shereen Marcelino CMA - 04/03/2023 7:52 AM HEAVY DUTY MECHANIC spoke with patient Y DUTY MECHANIC documented in this encounter Plan of Treatment Upcoming Encounters Date Type Department Care Team (Late st Contact Info) Description 05/22/2024 10:45 AM HEAVY DUTY MECHANIC Hospital Encounter [facility] Endoscopy [address] [place] [address] Nikolay Boucher MD [address] [place] [address] 05/22/2024 10:45 AM HEAVY DUTY MECHANIC - 05/22/2024 11:15 AM HEAVY DUTY MECHANIC Surgery [facility] Endoscopy [address] [place] [address] Nikolay Boucher MD [address] [place] [address] EGD Scheduled Procedures Name Priority Associated Diagnoses Date/Ti me ESOPHAGOGASTRODUODENOSCOPY Crohn's disease of both small and large intestine with intestinal obstruction (HCC) 05/22/2024 10:45 AM HEAVY DUTY MECHANIC documented as of this encounter Visit Diagnoses Not on filedocumented in this encounter Care Teams Off Track Betting Manager Relationship Specialty Start Date End Date Tip Armenta MD [address] [address] PCP - General Family Medicine 03/18/19 Eleanor Ramon MD [address] [place] [address] Medical Oncologist/Gun Fitter Hematology 07/12/20 documented as of this encounter
--- OUTSIDE RECORDS SUMMARY | 2024-05-18 22:12 | XMS_ITS | Encounter Summary ---
Author Organization [facility] Healthcare Address [address] [place] [address] Care Team Providers Care Director Cost Name Role Phone Tip Armenta MD Primary Care Provider [phone] Eleanor Ramon MD Unavailable [phone] Reason for Visit * Auth/Cert (Routine) Specialty Diagnoses / Procedures Referred By Contac t Referred To Contact Diagnoses Crohn's disease of both small and large intestine without complication (CMS/HCC) (HCC) Crohn's disease of both small and large intestine without complication (CMS/HCC) (HCC) [K50.80] Procedures WY COLONOSCOPY FLX DX W/COLLJ SPEC WHEN PFRMD WY COLONOSCOPY W/BIOPSY SINGLE/MULTIPLE COLONOSCOPY Referral ID Status Reason Start Date Expiration Date Visits Re quested Visits Authorized [id number] 1 1 Encounter Details Date Type Department Care Team (Late Contact Info) Description 09/28/2022 7:30 AM CDT - 09/28/2022 8:00 AM CDT Surgery [facility] Endoscopy [id number] [address] Roxanna Mclean MD [address] [place] [address] COLONOSCOPY Surgery Details Date/Time Status Location OR Service Patient Class Case Class Case Type Trauma Case? 09/28/2022 7:30 AM Posted [facility] Endo 01 Gastroenterology Outpatient Elective Panel 1 Procedure LRB Anes Op Region Wound Class Comments COLONOSCOPY N/A Monitor Anesthesia Care Colon N/A Surgeon Surgeon Role Service Panel Roxanna Mclean MD Primary Gastroente rology 1 documented in this encounter Social History Tobacco Use Types Packs/Day Years [...] on file Legal Sex Male 1:20 AM BOX ICER Gender Identity Not on file Sexual Orientation Not on file documented as of this encounter Last Filed Vital Signs Vital Sign Reading Time Taken Comments Blood Pressure 123/101 09/28/2022 8:00 AM CDT Pulse 70 09/28/2022 8:00 AM CDT Temperature 36.2 ??C (97.2 ??F) 09/28/2022 7:49 AM CD T Respiratory Rate 11 09/28/2022 8:00 AM CDT Oxygen Saturation 94% 09/28/2022 8:00 AM CDT Inhaled Oxygen Concentration - - Weight 102.1 kg (225 lb) 09/28/2022 6:24 AM CDT Height 188 cm (6' 2 ) 09/28/2022 6:24 AM CDT Body Mass Index 28.89 09/28/2022 6:24 AM CDT documented in this encounter Discharge Instructions * Discharge Instructions* Yu Patterson RN - 09/28/2022 7:48 AM CDT SCOPE DISCHARGE INSTRUCTIONS You have had an Esophagogastroduodenoscopy (EGD) and a Colonoscopy (Colon) procedure. Sedation: You were given medication for sedation. You may feel drowsy or tired for a few hours. We recommend you not be alone today. Please do not participate in activities that require good coordination or concentration such as driving a car or operating machinery for the next 24 hours. Protect yourself against falls, especially on the stairs or when walking long distances. Delay making businessdecisions that require the signing of legal documents for a minimum of 24 hours. No alcoholic beverages for 24 hours. Diet: Type of diet ordered {GI diet instructions:97045731}. You may eat and drink at . IV: If the IV site swells or bleeds, please apply direct pressure for 5 minutes. If the site becomes red, you may apply warm, moist compresses to the site. Please see a healthcare professional if youhave concerns about your IV site. Abdomen: Following the procedure called colonoscopy, you may be aware of a bloated appearance andfeeling of your abdomen. You may also experience some cramping or gas pains . The distention and discomfort should subside as you pass the air. If you are unable to pass the air, please contact your physician. Pain/Bleeding: You have had {POST BIOPSY/DILITATION:89999029} performed during the procedure. You may expect a little bleeding from the site. Within the next 48 hours, if the bleeding becomes excessive or is accompanied by abdominal or chest pain, please call your physician immediately. If you are on aspirin or NSAIDS (non-steroidal anti-inflammatory drugs) then you can resume in {Endo ASA/NSAIDS:59982713}. If no follow-up appointment is required, you may receive a letter or phone call from the physician regarding your test/biopsy results within the next two weeks. A note will also be sent to your referring physician. If you have any questions, please call your physician's office. documented in this encounter Medications at Time of Discharge acetaminophen-cod eine (TYLENOL with CODEINE #3) 300-30 mg per tablet TAKE 1 TABLET BY MOUTH EVERY 4 HOURS NEEDED FOR PAIN 03/06/2021 ALPRAZolam (XANAX) 1 mg tablet TK / TO 1 T PO BID PRF ANXIETY [...] total) by mouth every morning 3 10/25/2017 gabapentin (NEURONTIN) 300 mg capsule Take 1 capsule (300 mg total) by mouth 3 (three) times a day 270 capsule 02/22/2022 hydroCHLOROthiazi de (HYDRODIURIL) 25 mg tablet Take [...] total) by mouth as needed 1 07/10/2018 ondansetron (ZOFRAN) 8 mg tablet Take 1 [...] tablet by mouth nightly at bedtime 07/12/2022 testosterone cypionate (DEPO-TESTOTERONE ) 200 mg/mL injection INJ 1 ML IM Q WK 5 11/29/2017 zolpidem (AMBIEN) 10 mg tablet Take 1 tablet (10 mg total) by mouth nightly as needed 5 12/13/2017 adalimumab (Humira,CF, Pen) 40 mg/0.4 mL pen injector kitIndications:Cr ohn's disease of small and large intestines with complication (HCC) Inject 0.4 mL (40 mg total) under the skin every 14 (fourteen) days Safety labs required every 3 months for med refills, next labs due 12/2022. 2 each 2 09/28/2022 3 nystatin 100,000 unit/mL suspension SHAKE LIQUID WELL AND SWISH AND SWALLOW 5ML TWICE DAILY X 14 DAYS 08/24/2022 3 documented as of this encounter Discharge Disposition Disposition Code Departure Means Destination Comment s Discharge to home or self care documented in this encounter H&P Notes * Roxanna Mclean MD - 09/27/2022 1:20 PM CDT Pre Endoscopy History and Physical Mello Herbert is a 57 y.o. male who is here for Procedure(s): COLONOSCOPY The indication(s) for the procedure(s): ibd. Past Medical History: Diagnosis Date Anemia Anxiety and depression Crohn's colitis (CMS/HCC) (HCC) GERD (gastroesophageal reflux disease) Hypertension Past Surgical History: Procedure Laterality Date CERVICAL DISC ARTHROPLASTY 2020 SMALL BOWEL RESECTION Social History Tobacco Use Smoking status: Never Smokeless tobacco: Never Substance and Sexual Activity Drug use: Never Sexual activity: Defer Alcohol Use: Not At Risk (02/21/2022) AUDIT-C Frequency of Alcohol Consumption: Never Average Number of Drinks: 1 or 2 Frequency of Binge Drinking: Never Family History Problem Relation Age of Onset No Known Problems Mother No Known Problems Father Allergies Allergen Reactions Latex Rash Prior to Admission medications Medication Sig Start Date End Date Taking? Authorizing Provider acetaminophen-codeine (TYLENOL with CODEINE #3) 300-30 mg per tablet TAKE 1 TABLET BY MOUTH EVERY 4HOURS NEEDED FOR PAIN 03/06/21 Shaun Chavarria MD adalimumab (Humira,CF, Pen) 40 mg/0.4 mL pen injector kit Inject 0.4 mL (40 mg total) under the skin every 14 (fourteen) days No further refills will be authorized until a follow up appointment is scheduled and safety labs are completed (due this month). 09/25/22 Roxanna Mclean MD ALPRAZolam (XANAX) 1 mg tablet TK 1/2 TO 1 T PO BID PRF ANXIETY 11/21/17 Shaun Chavarria MD amitriptyline (ELAVIL) 10 mg tablet Take 10 mg by mouth nightly 02/06/21 Shaun Chavarria MD amLODIPine (NORVASC) 5 mg tablet Take 5 mg by mouth every morning 01/31/21 Shaun Chavarria MD BD SAFETYGLIDE SYRINGE 3 mL 23 x 1 syringe U UTD 11/26/18 Shaun Chavarria MD cholecalciferol (VITAMIN D-3) 50,000 unit capsule Take 1 capsule (50,000 Units total) by mouth 08/28/22 Shaun Chavarria MD CIALIS 20 mg tablet TK 1 T PO QD PRN 11/26/17 Shaun Chavarria MD cyanocobalamin (Vitamin B-12) 1,000 mcg/mL injection INJECT 1 ML Q 2 WEEKS UTD 12/10/17 Shaun Chavarria MD diphenoxylate-atropine (LOMOTIL) 2.5-0.025 mg per tablet Take 1 tablet by mouth 3 (three) times a day as needed 06/19/18 Shaun Chavarria MD folic acid (FOLVITE) 1 mg tablet Take 1 mg by mouth every morning 10/25/17 Shaun Chavarria MD gabapentin (NEURONTIN) 300 mg capsule Take 1 capsule (300 mg total) by mouth 3 (three) times a day 02/22/22 05/23/22 Michael Viveros PA hydroCHLOROthiazide (HYDRODIURIL) 25 mg tablet Take 25 mg by mouth as needed Shaun Chavarria MD HYDROcodone-acetaminophen (NORCO) 7.5-325 mg per tablet Take 1 tablet by mouth every 6 (six) hours as needed for pain Patient not taking: Reported on 02/21/2022 Shaun Chavarria MD hyoscyamine (LEVSIN) 0.125 mg tablet TAKE 1 TABLET(0.125 MG) BY MOUTH EVERY 6 HOURS NEEDED FOR CRAMPING OR DIARRHEA/ SPASMS 10/25/21 Roxanna Mclean MD irbesartan (AVAPRO) 300 mg tablet Take 300 mg by mouth every morning 01/30/21 Shaun Chavarria MD lansoprazole (PREVACID) 15 mg capsule Take 15 mg by mouth 2 (two) times a day 10/12/16 Shaun Chavarria MD magnesium oxide,aspartate,citr 400 mg magnesium capsule Take 1 capsule by mouth as needed 10/12/16 Shaun Chavarria MD montelukast (SINGULAIR) 10 mg tablet Take 10 mg by mouth as needed 07/10/18 Shaun Chavarria MD nystatin 100,000 unit/mL suspension SHAKE LIQUID WELL AND SWISH AND SWALLOW 5ML TWICE DAILY X 14 DAYS 08/24/22 Shaun Chavarria MD ondansetron (ZOFRAN) 8 mg tablet Take 8 mg by mouth as needed 12/01/17 Shaun Chavarria MD polyethylene glycol (GoLYTELY) 236-22.74-6.74 -5.86 gram solution Drink 240 ml the day before your Colonoscopy - PLEASE FOLLOW PREP INSTRUCTIONS GIVEN BY DR MCLEAN OFFICE 09/25/22 Roxanna Mclean MD sulfamethoxazole-trimethoprim (BACTRIM DS) 800-160 mg per tablet Take 1 tablet by mouth nightly at bedtime 07/12/22 Shaun Chavarria MD testosterone cypionate (DEPO-TESTOTERONE) 200 mg/mL injection INJ 1 ML IM Q WK 11/29/17 Shaun Chavarria MD zolpidem (AMBIEN) 10 mg tablet Take 10 mg by mouth nightly as needed 12/13/17 Shaun Chavarria MD Review of Systems A pertinent, focused review of systems was completed and negative, except as noted above. OBJECTIVE: Vitals: There were no vitals filed for this visit. Physical Exam: Airway: No significant abnormality. Cardiac: No significant abnormality. Pulmonary: No significant abnormality. Neurological: No significant abnormality. Gastrointestinal: No significant abnormality. ASA Score: per Anesthesia Sedation/Anesthesia Plan: per Anesthesia The risks and complications of the procedure have been explained to the patient. Informed consent was signed. Impression and plan: Will proceed with the planned procedure for the reasons stated above. documented in this encounter Procedure Notes * Roxanna Mclean MD - 09/28/2022 7:18 AM CDTAssociated Order(s): COLONOSCOPY ENDOSCOPY LAB Patient Name: Mello Herbert Procedure Date: 09/28/2022 7:18 AM Date of : 1965 Admit Type: Outpatient Age: 57 Gender: Male Attending MD: Roxanna Mclean M.D. Room: [facility] ROOM 01 Note Status: Finalized Procedure: Colonoscopy Indications: High risk colon cancer surveillance: Crohn's colitis of 8 (or more) years duration with one-third (or more) of the colon involved on Humira 40mg [...] sedation. The benefits, risks and alternatives of the procedure and sedation were discussed and informed consent was obtained. All questions were answered. Please refer to the signed informed consent document in the medical record. The scope was passed under direct vision. The [id number] was introduced through the anus and advanced to 20 cm into the ileum. The colonoscopy was performed without difficulty. The patient tolerated the procedure well. The quality of the bowel preparation was good. Bowel prep was administered using a split dose. Findings: The perianal and digital rectal examinations were normal. Pertinent negatives include no palpable rectal lesions. Normal mucosa was found in the entire colon. Contrast chromoscopy with methylene blue was performed using irrigation chromoendoscopy technique. There was evidence of a prior end-to-side ileo-colonic anastomosis in the proximal transverse colon. This was patent and was characterized by healthy appearing mucosa. The anastomosis was traversed. [...] During normal business hours - Please call the Nurse Coordinator: [phone] After hours, evening, nights, weekends and holidays - Please call the hospital twisting frame operator at and ask for the GI fellow reproductive surgeon. Attending Participation: I personally performed the entire procedure. Electronically signed by Roxanna Mclean M.D. Roxanna Mclean M.D. 09/28/2022 7:54:20 AM Number of Addenda: 0 Note Initiated On: 09/28/2022 7:18 AM documented in this encounter Miscellaneous Notes * Perioperative Nursing Note - Yu Patterson RN - 09/28/2022 8:00 AM CDT discussed findings. Discharge instructions given to patient, (and by phone - directed to cook pickled meat location).Understanding expressed, questions answered.(No signatures due to CoVid19 protocol) Tolerating po fluids. * Pre-Procedure Instructions - Valery Bello RN - 09/27/2022 12:16 PM CDT Please follow all instruction you were given regarding your bowel prep. When you arrive come to [facility] Hospital entrance. As you enter there will be an information desk, let them know you are here for a procedure and you will be directed to procedure registration area Once registered one of the endoscopy nurses will come to get you ready for your colonoscopy. Dress comfortable. Leave valuable at home-gaspar, credit cards, jewelry For your safety due to the anesthesia you will not be able to drive so please have a ride arranged to and from hospital with a responsible adult. If your drop hammer pile driver operator chooses not to come in to the building or will be picking you up after your procedure-we will call your drop hammer pile driver operator to confirm your ride home prior to the procedure start time Masking at [facility] is now optional. You may bring a mask and masks are available at hospital entrance. We respect personal choice of anyone who chooses to mask. Be assured employees are ready to mask upon request when providing care. documented in this encounter Plan of Treatment Upcoming Encounters Date Type Department Care Team (Late st Contact Info) Description 05/22/2024 10:45 AM BOX ICER Hospital Encounter [facility] Endoscopy [address] [place] [address] Nikolay Boucher MD [address] [place] [address] 05/22/2024 10:45 AM BOX ICER - 05/22/2024 11:15 AM BOX ICER Surgery [facility] Endoscopy [address] [place] [address] Nikolay Boucher MD [address] [place] [address] EGD Scheduled Procedures Name Priority Associated Diagnoses Date/Ti me ESOPHAGOGASTRODUODENOSCOPY Crohn's disease of both small and large intestine with intestinal obstruction (HCC) 05/22/2024 10:45 AM BOX ICER documented as of this encounter Procedures Procedure Name Priority Date/Time Associated Diagnosis Comments COLONOSCOPY 09/28/2022 7:24 AM CDT Crohn's disease of both small and large intestine without complication (CMS/HCC) (HCC) COLONOSCOPY 09/28/2022 7:18 AM CDT DIFFERENTIAL AUTO Routine 09/28/2022 6:4 9 AM CDT CBC WITH AUTO DIFFERENTIAL Routine 09/28/2022 6:49 AM CDT HEPATIC FUNCTION PANEL Routine 09/28/2022 6:49 AM CDT documented in this encounter Results * COLONOSCOPY (09/28/2022 7:18 AM CDT) Anatomical Region Laterality Modality Other Narrative Procedure Note Roxanna Mclean MD - 09/28/2022 7:18 AM CDT ENDOSCOPY LAB Patient Name: Mello Herbert Procedure Date: 09/28/2022 7:18 AM Date of : 1965 Admit Type: Outpatient Age: 57 Gender: Male Attending MD: Roxanna Mclean M.D. Room: [facility] RO[facility] 01 Note Status: Finalized Procedure: [...] The scope was passed under direct vision.The [id number] was introduced through the anusand advanced to [...] business hours - Please call theNurse Coordinator: [phone] After hours, evening, nights, weekends and holidays- Please call the hospital twisting frame operator at and ask for the GI fellow reproductive surgeon. Attending Participation: I personally performed the entire procedure. Electronically signed by Roxanna Mclean M.D. Roxanna Mclean M.D. 09/28/2022 7:54:20 AM Number of Addenda: 0 Note Initiated On: 09/28/2022 7:18 AM us Roxanna Mclean MD ENDOSCOPY PROCEDURE S Final Result * Differential, auto (09/28/2022 6:49 AM CDT) Neutrophil abs 4.8 1.7 - 6.5 K/cumm [facility] Imm gran abs 0.0 0.0 - 0.1 K/cumm [facility] Lymphocyte abs 1.8 0.8 - 3.3 K/cumm [facility] Monocyte abs 0.8 0.2 - 0.8 K/cumm [facility] Eosinophil abs 0.2 0.0 - 0.5 K/cumm [facility] Basophil abs 0.1 0.0 - 0.1 K/cumm [facility] Neutrophil pct 62.5 % [facility] Comment: Interpretive Data Percent cell count reference ranges are not reported, since discordance with absolute values may lead to misinterpretation of CBC data. Current Interpretive Data was last revised on 2017. Imm gran pct 0.3 % [facility] Comment: Interpretive Data Percent cell count reference ranges are not reported, since discordance with absolute values may lead to misinterpretation of CBC data. Current Interpretive Data was last revised on 2017. Lymphocyte pct 23.0 % [facility] Comment: Interpretive Data Percent cell count reference ranges are not reported, since discordance with absolute values may lead to misinterpretation of CBC data. Current Interpretive Data was last revised on 2017. Monocyte pct 10.5 % [facility] Comment: Interpretive Data Percent cell count reference ranges are not reported, since discordance with absolute values may lead to misinterpretation of CBC data. Current Interpretive Data was last revised on 2017. Eosinophil pct 3.0 % [facility] Comment: Interpretive Data Percent cell count reference ranges are not reported, since discordance with absolute values may lead to misinterpretation of CBC data. Current Interpretive Data was last revised on 2017. Basophil pct 0.7 % [facility] Comment: Interpretive Data Percent cell count reference ranges are not reported, since discordance with absolute values may lead to misinterpretation of CBC data. Current Interpretive Data was last revised on 2017. Blood 09/28/2022 6:49 AM CDT 09/28/2022 6:54 AM CDT us Roxanna Mclean MD LAB BLOOD ORDERABLE S Final Result [facility] [address] [facility]. Department of [employer] [place], [place] [id number] * (ABNORMAL) Hepatic function panel (09/28/2022 6:49 AM CDT) Pathologist [facility] Bilirubin, total 1.5(H) 0.1 - 1.2 mg/dL [facility] Bilirubin, direct 0.3 0.1 - 0.3 mg/dL [facility] Protein, pl 7.4 6.5 - 8.5 g/dL [facility] Albumin 4.6 3.5 - 5.0 g/dL [facility] Alk phos 101 40 - 130 Units/L [facility] ALT 30 7 - 55 Units/L [facility] AST 40 10 - 50 Units/L [facility] Blood 09/28/2022 6:49 AM CDT 09/28/2022 6:54 AM CDT us Roxanna Mclean MD LAB BLOOD ORDERABLE S Final Result [facility] [address] [facility] [place] [address] * CBC with auto differential (09/28/2022 6:49 AM CDT) Pathologist [facility] WBC 7.7 3.8 - 9.9 K/cumm [facility] Hgb 16.3 13.0 - 17.5 g/dL [facility] Hct 49.7 38.9 - 50.3 % [facility] Plt 213 150 - 400 K/cumm [facility] MPV 9.5 9.1 - 12.3 fL [facility] RBC 5.67 4.30 - 5.80 M/cumm [facility] MCV 87.7 81.3 - 96.4 fL [facility] MCH 28.7 27.1 - 33.3 pg [facility] MCHC 32.8 32.3 - 35.7 g/dL [facility] RDW CV 14.1 11.1 - 14.9 % [facility] RDW SD 45.2 35.7 - 48.1 fL [facility] NRBC abs 0.00 0.00 - 0.01 K/cumm [facility] Blood 09/28/2022 6:49 AM CDT 09/28/2022 6:54 AM CDT us Roxanna Mclean MD LAB BLOOD ORDERABLE S Final Result [facility] [address] [facility] [place] [address] documented in this encounter Visit Diagnoses Diagnosis Crohn's disease of both small and large intestine without complication (CMS/HCC) (HCC) Crohn's disease of both small and large intestine with intestinal obstruction (HCC) documented in this encounter Administered Medications Inactive Administered Medications - up to 3 most recent administrations Medication Order MAR Action Action Date Dose Rate Site methylene blue (PROVAYBLUE) (0.5%) injection Administer over 20 Minutes, Continuous PRN, Starting on Sat09/28/22 at 0737, Intra-Op New Bag 09/28/2022 7:37 AM CDT 50 mg GI Tract ondansetron (ZOFRAN) 4 mg/2 mL injection - ADS Override Pull Starting on Sat09/28/22 at 0640, For 1 dose, Created by cabinet override ondansetron (ZOFRAN) injection 4 mg 4 mg, intravenous, Administer over 2 Minutes, Once, On Sat09/28/22 at 0715, For 1 dose, Pre-Op Given 09/28/2022 6:51 AM CDT 4 mg sodium chloride 0.9% 0.9% infusion - ADS Override Pull Starting on Sat09/28/22 at 0640, For 1 dose, Created by cabinet override sodium chloride 0.9% flush 0.5-20 mL 0.5-20 mL, intra-catheter, As needed, line care, Starting on Sat09/28/22 at 0629, Pre-Procedure (GI), Flush volume based on line type and size. Flush before and after each use. , Indications: FlushingIndications:Flus jesus sodium chloride 0.9% infusion 30 mL/hr, intravenous, Continuous, Starting on Sat09/28/22 at 0700, Pre-Procedure (GI) Rate/Dose Verify 09/28/2022 7:23 AM CDT 30 mL/hr New Bag 09/28/2022 6:51 AM CDT 30 mL/hr 30 mL/hr documented in this encounter Historical Medications * This list may reflect changes made after this encounter. sulfamethoxazole- trimethoprim (BACTRIM DS) 800-160 mg per tablet Take 1 tablet by mouth nightly at bedtime 07/12/2022 cholecalciferol (VITAMIN D-3) 50,000 unit capsule Take 1 capsule (50,000 Units total) by mouth 08/28/2022 nystatin 100,000 unit/mL suspension SHAKE LIQUID WELL AND SWISH AND SWALLOW 5ML TWICE DAILY X 14 DAYS 08/24/2022 02/11/2023 added in this encounter Active and Recently Administered Medications Times are shown in CDT. Scheduled Medication Order 09/26/2022 09/27/2022 09/28/2022 ondansetron (ZOFRAN) injection 4 mg (COMPLETED) 4 mg, intravenous, Administer over 2 Minutes, Once, On Sat09/28/22 at 0715, For 1 dose, Pre-Op 0651 (Given - Provid er: Rosa Amin RN) Continuous Medication Order 09/26/2022 09/27/2022 09/28/2022 sodium chloride 0.9% infusion 30 mL/hr, intravenous, Continuous, Starting on Sat09/28/22 at 0700, Pre-Procedure (GI) 0651 (New Bag - Prov ider: Rosa Amin RN)0723 (Rate/Dose Verify - Provider: Lashell Palmer CRNA)0746 (Anesthesia Volume Adjustment - Provider: Lashell Palmer CRNA)1236 (Due: Stopped) PRN Medication Order 09/26/2022 09/27/2022 09/28/2022 methylene blue (PROVAYBLUE) (0.5%) injection (COMPLETED) Administer over 20 Minutes, Continuous PRN, Starting on Sat09/28/22 at 0737, Intra-Op 0737 (New Bag - Prov ider: Roxanna Mclean MD - Comment: In 500 mL H2O) sodium chloride 0.9% flush 0.5-20 mL 0.5-20 mL, intra-catheter, As needed, line care, Starting on Sat09/28/22 at 0629, Pre-Procedure (GI), Flush volume based on line type and size. Flush before and after each use. , Indications: Flushing documented in this encounter Orders Medications Ordered That Leon ht Not Have Been Administered Count Last Ordered Date First Ordered Date sodium chloride 0.9% flush 0.5-20 mL 1 09/2022 Discharge Count Last Ordered Date First Orde red Date DISCHARGE PATIENT 1 09/28/2022 documented in this encounter Care Teams Director Cost Relationship Specialty Start Date End Date Tip Armenta MD [address] [address] PCP - General Family Medicine 03/18/19 Eleanor Ramon MD [address] [facility] [address] [place] [address] Medical Oncologist/[facility] Hematology 07/12/20 documented as of this encounter
--- OUTSIDE RECORDS SUMMARY | 2024-05-18 22:12 | XMS_ITS | Encounter Summary ---
Author Organization [facility] Address [address] [place] [address] Phone Care Team Providers Care Road Mechanic Name Role Phone Tip Armenta MD Primary Care Provider [phone] Eleanor Ramon MD Unavailable [phone] Encounter Details Date Type Department Care Team (Late st Contact Info) Description 04/01/2023 Orders Only [facility] Hematology [address] [facility] Advanced Medicine 7th [place] [address] [place] [address] Blossom Domingo, GUEVARA Social History Tobacco Use Types Packs/Day Years [...] on file Legal Sex Male 1:20 AM ABRASIVE MIXER Gender Identity Not on file Sexual Orientation Not on file documented as of this encounter Plan of Treatment Upcoming Encounters Date Type Department Care Team (Late st Contact Info) Description 05/22/2024 10:45 AM ABRASIVE MIXER Hospital Encounter [facility] Endoscopy [address], [place] [address] Nikolay Boucher MD [address] [place] [address] 05/22/2024 10:45 AM ABRASIVE MIXER - 05/22/2024 11:15 AM ABRASIVE MIXER Surgery [facility] Endoscopy [address] [place] [address] Nikolay Boucher MD [address] [place] [address] EGD Scheduled Procedures Name Priority Associated Diagnoses Date/Ti me ESOPHAGOGASTRODUODENOSCOPY Crohn's disease of both small and large intestine with intestinal obstruction (HCC) 05/22/2024 10:45 AM ABRASIVE MIXER documented as of this encounter Visit Diagnoses Not on filedocumented in this encounter Care Teams Road Mechanic Relationship Specialty Start Date End Date Tip Armenta MD [address] [address] PCP - General Family Medicine 03/18/19 Eleanor Ramon MD [address] [place] [address] Medical Oncologist/Lab Technician Hematology 07/12/20 documented as of this encounter
--- OUTSIDE RECORDS SUMMARY | 2024-05-18 22:12 | XMS_ITS | Encounter Summary ---
Author Organization [facility] Address [address] [place] [address] Phone Care Team Providers Care Methods Analyst Data Processing Name Role Phone Tip Armenta MD Primary Care Provider [phone] Eleanor Ramon MD Unavailable [phone] Encounter Details Date Type Department Care Team (Late st Contact Info) Description 10/16/2023 Orders Only [facility] Gastroenterology [address] [facility] Advanced Medicine 12th [place] [address] [place] [address] Nikolay Boucher MD [address] [place] [address] Social History Tobacco Use Types Packs/Day Years [...] on file Legal 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 Next labs are due now. 0.8 mL 10/16/2023 documented in this encounter Plan of Treatment Upcoming Encounters Date Type Department Care Team (Late st Contact Info) Description 05/22/2024 10:45 AM ASSOCIATE TEACHER Hospital Encounter [facility] Endoscopy [address] [place] [address] Nikolay Boucher MD [address] [place] [address] 05/22/2024 10:45 AM ASSOCIATE TEACHER - 05/22/2024 11:15 AM ASSOCIATE TEACHER Surgery [facility] Endoscopy [address], [place] [address] Nikolay Boucher MD [address] [place] [address] EGD Scheduled Procedures Name Priority Associated Diagnoses Date/Ti me ESOPHAGOGASTRODUODENOSCOPY Crohn's disease of both small and large intestine with intestinal obstruction (HCC) 05/22/2024 10:45 AM ASSOCIATE TEACHER documented as of this encounter Visit Diagnoses Not on filedocumented in this encounter Discontinued Medications Medication Sig Discontinue Reason Start Date End Da te adalimumab (Humira,CF, Pen) 40 mg/0.4 mL pen injector kitIndications:Crohn's disease of small and large intestines with complication (HCC) Inject 0.4 mL (40 mg total) under the skin every 14 (fourteen) days Therapy completed 08/21/2023 10/16/2023 documented as of this encounter Care Teams Methods Analyst Data Processing Relationship Specialty Start Date End Date Tip Armenta MD [address] [address] PCP - General Family Medicine 03/18/19 Eleanor Ramon MD [address] [place] [address] Medical Oncologist/Baggageman Hematology 07/12/20 documented as of this encounter
--- OUTSIDE RECORDS SUMMARY | 2024-05-18 22:12 | XMS_ITS | Encounter Summary ---
Author Organization [facility] Address [address] [place] [address] Phone Care Team Providers Care Sales Support Rep Name Role Phone Tpi Armenta MD Primary Care Provider [phone] Eleanor Ramon MD Unavailable [phone] Encounter Details Date Type Department Care Team (Late st Contact Info) Description 10/16/2023 Telephone [facility] Gastroenterology [address] [facility] 12th [place] [address] Ashley Castillo CMA Social History [...] on file Legal Sex Male 1:20 AM CARDIAC TECHNICIAN Gender Identity Not on file Sexual Orientation Not on file documented as of this encounter Miscellaneous Notes * Telephone Encounter - Ashley Castillo CMA - 10/16/2023 3:04 PM CDT Received call from pt's Monica regarding transferring Mello's care to Dr. Ritchie. Informed her of Dr. Ritchie's decision to not approve the change of providers. Also informed her the appeal for Humira had been denied and that the preferred medication is Hyrimoz. She understood and said that shewould relay information to Mello. She knows to call back if she has any other questions. documented in this encounter Plan of Treatment Upcoming Encounters Date Type Department Care Team (Late st Contact Info) Description 05/22/2024 10:45 AM CARDIAC TECHNICIAN Hospital Encounter [facility] Endoscopy [address] [place] [id number] Nikolay Boucher MD [address] [place] [address] 05/22/2024 10:45 AM CARDIAC TECHNICIAN - 05/22/2024 11:15 AM CARDIAC TECHNICIAN Surgery [facility] Endoscopy [address] [place] [id number] Nikolay Boucher MD [address] [place] [address] EGD Scheduled Procedures Name Priority Associated Diagnoses Date/Ti me ESOPHAGOGASTRODUODENOSCOPY Crohn's disease of both small and large intestine with intestinal obstruction (HCC) 05/22/2024 10:45 AM CARDIAC TECHNICIAN documented as of this encounter Visit Diagnoses Not on filedocumented in this encounter Care Teams Sales Support Rep Relationship Specialty Start Date End Date Tip Armenta MD [address] [address] PCP - General Family Medicine 03/18/19 Eleanor Ramon MD [address] [place] [address] Medical Oncologist/Truck Railroad And Bus Motor Mechanic Hematology 07/12/20 documented as of this encounter
--- OUTSIDE RECORDS SUMMARY | 2024-05-18 22:12 | XMS_ITS | Encounter Summary ---
Author Organization [facility] Address [address] [place] [address] Phone Care Team Providers Care Chief Information Officer Name Role Phone Tip Armenta MD Primary Care Provider [phone] Eleanor Ramon MD Unavailable [phone] Reason for Visit * Reason Onset Date Comments Brad 07/30/2023 Encounter Details Date Type Department Care Team (Late st Contact Info) Description 07/30/2023 Telephone [facility] Gastroenterology [facility] 12th [place] [address] [place] [address] Jessica Ying, RN Hyridamir Social History Tobacco Use Types Packs/Day Years [...] on file Legal Sex Male 1:20 AM IT OPERATIONS SPECIALIST Gender Identity Not on file Sexual Orientation Not on file documented as of this encounter Miscellaneous Notes * Telephone Encounter - Jessica Joyce RN - 07/30/2023 2:33 PM IT OPERATIONS SPECIALIST Insurance mandating change from Humira to Hyrimoz starting 08/26/2023. Discussed therapy change with patient. Patient provided education re: biosimilars. However, patient verbalized that he does not want to switch to Hyrimoz and is concerned that therapy change will cause flare which could result in another surgery. Internet Researcher, Ashley Mao, notified appeal is needed. Patient reminded that he is due for annual and routine safety labs. OPERATIONS SPECIALIST documented in this encounter Plan of Treatment Upcoming Encounters Date Type Department Care Team (Late st Contact Info) Description 05/22/2024 10:45 AM IT OPERATIONS SPECIALIST Hospital Encounter [facility] Endoscopy [address] [place] [address] Nikolay Boucher MD [address] [facility] [place] [address] 05/22/2024 10:45 AM IT OPERATIONS SPECIALIST - 05/22/2024 11:15 AM IT OPERATIONS SPECIALIST Surgery [facility] Endoscopy [address] [place] [address] Nikolay Boucher MD [address] [place] [address] EGD Scheduled Procedures Name Priority Associated Diagnoses Date/Ti ak ESOPHAGOGASTRODUODENOSCOPY Crohn's disease of both small and large intestine with intestinal obstruction (HCC) 05/22/2024 10:45 AM IT OPERATIONS SPECIALIST documented as of this encounter Visit Diagnoses Not on filedocumented in this encounter Care Teams Chief Information Officer Relationship Specialty Start Date End Date Tip Armenta MD [address] [address] PCP - General Family Medicine 03/18/19 Eleanor Ramon MD [address] [place] [address] Medical Oncologist/Street Photographer Hematology 07/12/20 documented as of this encounter
--- OUTSIDE RECORDS SUMMARY | 2024-05-18 22:12 | XMS_ITS | Encounter Summary ---
Author Organization [facility] Address [address] [place] [address] Phone Care Team Providers Care Painter Ordnance Name Role Phone Tip Armenta MD Primary Care Provider [phone] Eleanor Ramon MD Unavailable [phone] Encounter Details Date Type Department Care Team (Late st Contact Info) Description 01/15/2024 9:00 AM CDT Office Visit [facility] Neurosurgery [address] [facility] Medical Office Building [address] [address] Michael Viveros PA [address] [place] [address] Annular tear of lumbar disc (Primary Dx); Status post cervical disc replacement; Chronic right SI joint pain; Facet hypertrophy of lumbar region Social History Tobacco Use Types Packs/Day Years [...] on file Legal Sex Male 1:20 AM CONTINGENTS SUPERVISOR Gender Identity Not on file Sexual Orientation Not on file documented as of this encounter Last Filed Vital Signs Vital Sign Reading Time Taken Comments Blood Pressure - - Pulse - - Temperature - - Respiratory Rate - - Oxygen Saturation - - Inhaled Oxygen Concentration - - Weight 96.3 kg (212 lb 4.9 oz) 01/15/2024 9:41 A M CDT Height 185.4 cm (6' 1 ) 01/15/2024 9:41 AM CDT Body Mass Index 28.01 01/15/2024 9:41 AM CDT documented in this encounter Ordered Prescriptions Prescription Sig Dispense Quantity Refills Last Filled Start Date End Date cyclobenzaprine (FLEXERIL) 5 mg tabletIndications: Muscle Spasm Take 1 tablet (5 mg total) by mouth 3 (three) times a day as needed for muscle spasms 90 tablet 01/15/2024 methylPREDNISolone (MEDROL DOSEPACK) 4 mg Dosepack Take as directed on package 1 packet 01/15/2024 4 documented in this encounter Progress Notes * Michael Viveros PA - 01/15/2024 9:00 AM CDT Images from the original note were not included. RETURN VISIT Subjective HISTORY OF PRESENT ILLNESS Pleasant 58-year-old male returns to clinic for evaluation of the lumbar spine complaints. The patient was known to our department status post a C6-7 disc arthroplasty performed in January of [address] Concepcion. He was doing well without significant issue with regards to the cervical spine. Ourfocused today's in regards to the lower back pain complaints for which he describes as intermittentstiffness and worsening severe discomfort across the lower lumbar, lumbosacral region. His previousimaging studies has been notable for flat back deformity and a previously noted annular tear at L5-S1. He is returning today with some increased right-sided lower back pain located along the SI joint. This was treated in the past with the use of Medrol and Flexeril that did alleviate his discomfort. He has had some fluctuating pain across the lumbosacral junction and more medial to the SI joint thathas been present over last few months. His pain will be associated with activity and improved with resting. VITAL SIGNS reviewed ALLERGIES He is allergic to latex. MEDICATIONS Current Outpatient Medications: acetaminophen-codeine (TYLENOL with CODEINE #3) 300-30 mg per tablet, TAKE 1 TABLET BY MOUTH EVERY 4 HOURS NEEDED FOR PAIN, Disp: , Rfl: adalimumab-adaz (Hyrimoz,CF, Pen) 40 mg/0.4 mL pen injector, Inject 0.4 mL under the skin every 14 (fourteen) days Safety labs are required every 3 months for refills. Next labs are due 01/2024., Disp: 0.8 mL, Rfl: 2 ALPRAZolam (XANAX) [...] , Rfl: 1 nystatin 100,000 unit/mL suspension, Shake well. Swish and swallow 5 ml twice daily for 14 days, Disp: 140 mL, Rfl: 0 ondansetron (ZOFRAN) 8 mg tablet, Take 1 tablet (8 mg total) by mouth as needed, Disp: , Rfl: 5 polyethylene glycol (GoLYTELY) 236-22.74-6.74 -5.86 gram solution, Drink 240 ml the day before yourColonoscopy - PLEASE FOLLOW PREP INSTRUCTIONS GIVEN BY DR MCLEAN OFFICE, Disp: 240 mL, Rfl: 0 sulfamethoxazole-trimethoprim (BACTRIM [...] as needed, Disp: , Rfl: 5 Objective PHYSICAL EXAM He was alert and oriented appears to be comfortable in the room. Affect is normal. He is answering questions appropriately. His strength is strong involving both lower extremities, intact and equal. No atrophy is noted. He does have some tenderness to palpate in the right SI joint as well as pain along the lumbar facet joints, more notable on the right. Reproduction of pain with extension. Limited lateral range of motion secondary to pain to the right. No significant tenderness to the left. TOBIAS sign is negative. He was ambulatory without difficulty. He does not appear to be spastic. REVIEW OF IMAGING Lumbar MRI from 2020 is notable for facet disease, hypertrophy at L5-S1 contributing to moderate tosevere foraminal stenosis bilateral. There is fqme-gi-wytyibvl central stenosis at this segment with degenerative [...] with Dr. Concepcion PLAN Pleasant 58-year-old male who returns to clinic for another discussion evaluation in regards to lumbar spine. The patient is known to our department status post cervical arthroplasty in 2020 with for which he has done very well. He denies any ongoing subjective myelopathy type complaintsor new symptoms of cervical neck pain. He does describe some joint disease in the lumbar spine withmediated pain with extension, consistent with notable facet disease at L5-S1. His x-rays are also notable for an attempt auto fusion with osteophyte formation across the anterior vertebral body disc space at L5-S1. On examination, he does have some SI joint discomfort to palpate on the right side the pain is more consistent more medial to the SI joint in the facet region. He may be a good candidate to consider facet blocks followed by ablations for both diagnostic and therapeutic direction. Before we consider pain management, he plans to attempt again oral analgesics which include steroid Medrol and Flexeril which he was sent to the pharmacy for him. He will also continue with his therapeutics which he has been attempting recently including strengthening, range of motion things of that nature. If he does not improve with the oral analgesics and therapeutics, we would discuss proceeding with the updated CT scan of the lumbar and pelvis spine possibly target levels including facet blocks versus SI joint injections. We concluded today's visit with a plan to follow up over tele visit in the next few weeks to discuss his response with oral analgesics. If he does not improve, the plan is to proceed with a CT scan and entertain injections. We briefly discussed avoiding surgical options as we continue a conservative treatment approach. I did encourage him to call us if there is any change in his symptoms or need or sooner appointment. Michael Viveros PA-C documented in this encounter Plan of Treatment Upcoming Encounters Date Type Department Care Team (Late st Contact Info) Description 05/22/2024 10:45 AM [facility] Hospital Encounter [facility] Endoscopy [address] [place] [address] Nikolay Boucher MD [address] [facility] [address] [place] [address] 05/22/2024 10:45 AM CONTINGENTS SUPERVISOR - 05/22/2024 11:15 AM CONTINGENTS SUPERVISOR Surgery [facility] Endoscopy [address] [address] Nikolay Boucher MD [address] [place] [address] EGD Scheduled Procedures Name Priority Associated Diagnoses Date/Ti me ESOPHAGOGASTRODUODENOSCOPY Crohn's disease of both small and large intestine with intestinal obstruction (HCC) 05/22/2024 10:45 AM CONTINGENTS SUPERVISOR documented as of this encounter Visit Diagnoses Diagnosis Annular tear of lumbar disc- Primary Status post cervical disc replacement Chronic right SI joint pain Disorders of sacrum Facet hypertrophy of lumbar region Crohn's disease of both small and large intestine with intestinal obstruction (HCC) documented in this encounter Discontinued Medications Medication Sig Discontinue Reason Start Date End Da te cyclobenzaprine (FLEXERIL) 5 mg tabletIndications:Muscle Spasm Take 1 tablet (5 mg total) by mouth 3 (three) times a day as needed for muscle spasms Reorder 11/11/2023 01/15/2024 documented as of this encounter Historical Medications * This list may reflect changes made after this encounter. nebivoloL (BYSTOLIC) 5 mg tablet Take 1 tablet (5 mg total) by mouth daily 12/16/2023 added in this encounter Care Teams Painter Ordnance Relationship Specialty Start Date End Date Tip Armenta MD [address] [address] PCP - General Family Medicine 03/18/19 Eleanor Ramon MD [address] [place] [address] Medical Oncologist/Production Pattern Maker Hematology 07/12/20 documented as of this encounter
--- OUTSIDE RECORDS SUMMARY | 2024-05-18 22:12 | XMS_ITS | Encounter Summary ---
Author Organization [facility] Address [address] [place] [address] Phone Care Team Providers Care Product Development Ecologist Name Role Phone Tip Armenta MD Primary Care Provider [phone] Eleanor Ramon MD Unavailable [phone] Reason for Visit * Episode Based Medications (Routine) - Closed Specialty Diagnoses / Procedures Referred By Contac t Referred To Contact Oncology Diagnoses Other iron deficiency anemia Erythrocytosis Procedures [place] INJ FERRIC CARBOXYMALTOS 1MG FERRIC CARBOXYMALTOSE (INJECTAFER) INFUSION Eleanor Ramon MD [address] [place] [address] Phone: tel: fax: [facility] Oncology [address] [place] [phone] Phone: tel: Referral ID Status Reason Start Date Expiration Date Visits Re quested Visits Authorized [id number] Closed 04/03/2023 07/03/2023 1 12 Encounter Details Date Type Department Care Team (Late st Contact Info) Description 04/04/2023 8:15 AM PRINTED [employer]AR[employer] CONTACT PRINTER Infusion [facility] Oncology [address] [place] [phone] Other iron deficiency anemia (Primary Dx); [...] on file Legal Sex Male 1:20 AM PRINT[employer] CONTACT PRINTER Gender Identity Not on file Sexual Orientation Not on file documented as of this encounter Last Filed Vital Signs Vital Sign Reading Time Taken Comments Blood Pressure 115/68 04/04/2023 8:09 AM [employer] CONTACT PRINTER Pulse 83 04/04/2023 8:09 AM [employer] CONTACT PRINTER Temperature 36.2 ??C (97.2 ??F) 04/04/2023 8:09 AM CS T Respiratory Rate 18 04/04/2023 8:09 AM PR[employer]AR[employer] CONTACT PRINTER Oxygen Saturation 94% 04/04/2023 8:09 AM PR[employer]AR[employer] CONTACT PRINTER Inhaled Oxygen Concentration - - Weight 100.5 kg (221 lb 9.6 oz) 04/04/2023 8:09 AM PR[employer]AR[employer] CONTACT PRINTER Height - - Body Mass Index 28.45 09/28/2022 6:24 AM CDT documented in this encounter Nursing Notes * Yudi Farrell, GUEVARA - 04/04/2023 8:15 AM CST Oncology Nursing Note [facility] Mello Herbert is a 57 y.o. male who presents for treatment 7 of FERRIC CARBOXYMALTOSE (INJECTAFER)INFUSION. Pre-treatment Nursing Assessment Nursing Assessment LOC: Alert, Awake Fatigue: Constant Any falls since your last visit?: No Orientation: Oriented x4 Behavior: Calm Speech: Clear Language: No aphasia Other neuro symptoms: Other: (comment) (lightheaded when bends over) Peripheral Neuropathy: No Oral Mucosa Grade: Normal (0) Shortness of Breath?: Yes (denies cough) Respiratory Effort Characteristics: Dyspnea exertion Appetite: Good Nausea/Vomiting: Yes (takes zofran) Diarrhea: Yes (chrons) Constipation: No Last BM Date: 04/04/23 Skin Condition/Temp: Warm, Dry Swelling: No BP: 115/68 Temp: 36.2 ??C (97.2 ??F) Temp src: Tympanic Pulse: 83 Resp: 18 SpO2: 94 % Weight: 100.5 kg (221 lb 9.6 oz) Pain Score: 0 - No pain Treatment Patient: does not require labs today. Pre blood return: Brisk Mello Herbert tolerated treatment well. Patient was frequently observed and monitored throughout the administration of their treatment. Additional Notes: No reaction noted during Injectafer infusion, pt observed for 30 minutes post infusion. Post blood return: Brisk IV access post infusion: NS Patient Education Treatment Education: Information/teaching given to patient including symptom management, process and procedure related to today's visit, and when to notify MD Response: Verbalizes understanding Discharge Plan Discharge instructions given to patient. Future appointments given and reviewed with treatment plan. Discharge Mode: Ambulatory Accompanied by: Self Discharged To: Home [employer]AR[employer] CONTACT PRINTER documented in this encounter Plan of Treatment Upcoming Encounters Date Type Department Care Team (Late st Contact Info) Description 05/22/2024 10:45 AM [employer] CONTACT PRINTER Hospital Encounter [facility] [id number] [address] [place] [address] Nikolay Boucher MD [address] [facility] [place] [address] 05/22/2024 10:45 AM [employer] CONTACT PRINTER - 05/22/2024 11:15 AM [employer] CONTACT PRINTER Surgery [facility] [id number] [address] [place] [address] Nikolay Boucher MD [address] [place] [address] EGD Scheduled Procedures Name Priority Associated Diagnoses Date/Ti oh ESOPHAGOGASTRODUODENOSCOPY Crohn's disease of both small and large intestine with intestinal obstruction (HCC) 05/22/2024 10:45 AM [employer] CONTACT PRINTER documented as of this encounter Visit Diagnoses [...] mL/hr, Administer over 20 Minutes, Once, On Sana 04/04/23 at 0915, For 1 doseIndications:Other iron deficiency anemia New Bag 04/04/2023 9:03 AM [employer] CONTACT PRINTER 750 mg 795 mL/hr documented in this encounter Orders Medications Ordered That Leon ht Not Have Been Administered Count Last Ordered Date First Ordered Date acetaminophen (TYLENOL) tablet 650 mg 1 01/2023 diphenhydrAMINE (BENADRYL) tab/cap 25 mg 1 04/04/2023 ondansetron (ZOFRAN) tablet 4 mg 1 04/04/20 Nursing Count Last Ordered Date First Orde red Date 1:1 OBSERVATION 1 04/04/2023 Appointment Requests Count Last Ordered Date Fi rst Ordered Date ONCBCN INFUSION APPT REQUEST 1 04/04/2023 documented in this encounter Care Teams Product Development Ecologist Relationship Specialty Start Date End Date Tip Armenta MD [address] [address] PCP - General Family Medicine 03/18/19 Eleanor Ramon MD [address] [facility] [address] [place] [address] Medical Oncologist/Victim Witness Administrator Hematology 07/12/20 documented as of this encounter
--- OUTSIDE RECORDS SUMMARY | 2024-05-18 22:12 | XMS_ITS | Encounter Summary ---
Author Organization [facility] Healthcare Address [address] [place] [address] Care Team Providers Care Feather Duster Winder Name Role Phone Tip Armenta MD Primary Care Provider [phone] Eleanor Ramon MD Unavailable [phone] Encounter Details Date Type Department Care Team (Late st Contact Info) Description 11/05/2023 10:10 AM CDT Lab 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 * Result Encounter Note - Nikolay Boucher MD - 11/05/2023 3:40 PM CDT Labs look good. Vitamin D is normal which is great news. Awaiting vitamin A and E but this suggestshe is absorbing nutrients just fine. documented in this encounter Plan of Treatment Upcoming Encounters Date Type Department Care Team (Late st Contact Info) Description 05/22/2024 10:45 AM ADVANCED SOLUTIONS ARCHITECT Hospital Encounter [facility] Endoscopy [address] [place] [address] Nikolay Boucher MD [address] [place] [address] 05/22/2024 10:45 AM ADVANCED SOLUTIONS ARCHITECT - 05/22/2024 11:15 AM ADVANCED SOLUTIONS ARCHITECT Surgery [facility] Endoscopy [address] [place] [address] Nikolay Boucher MD [address] [place] [address] EGD Scheduled Procedures Name Priority Associated Diagnoses Date/Ti me ESOPHAGOGASTRODUODENOSCOPY Crohn's disease of both small and large intestine with intestinal obstruction (HCC) 05/22/2024 10:45 AM ADVANCED SOLUTIONS ARCHITECT documented as of this encounter Procedures Procedure Name Priority Date/Time Associated Diagnosis Comments T-SPOT.TB Routine 11/05/2023 10:27 AM CDT High risk medications (not anticoagulants) long-term use Crohn's disease of small and large intestines with complication (HCC) EGFR Routine 11/05/2023 10:27 AM CDT High risk medications (not anticoagulants) long-term use Crohn's disease of small and large intestines with complication (HCC) DIFFERENTIAL AUTO Routine 11/05/2023 10: 27 AM CDT High risk medications (not anticoagulants) long-term use Crohn's disease of small and large intestines with complication (HCC) IRON PROFILE W/ IBC Routine 11/05/2023 1 0:27 AM CDT Crohn's disease of small and large intestines with complication (HCC) CBC WITH AUTO DIFFERENTIAL Routine 11/05/2023 10:27 AM CDT High risk medications (not anticoagulants) long-term use Crohn's disease of small and large intestines with complication (HCC) VITAMIN A Routine 11/05/2023 10:27 AM CDT Crohn's disease of small and large intestines with complication (HCC) HEPATITIS B CORE ANTIBODY, TOTAL Routine 11/05/2023 10:27 AM CDT High risk medications (not anticoagulants) long-term use Crohn's disease of small and large intestines with complication (HCC) VITAMIN D 25 HYDROXY Routine 11/05/2023 10:27 AM CDT Crohn's disease of small and large intestines with complication (HCC) HEPATITIS B SURFACE ANTIBODY (IMMUNE STATUS) Routine 11/05/2023 10:27 AM CDT High risk medications (not anticoagulants) long-term use Crohn's disease of small and large intestines with complication (HCC) HEPATITIS B SURFACE ANTIGEN Routine 11/05/2023 10:27 AM CDT High risk medications (not anticoagulants) long-term use Crohn's disease of small and large intestines with complication (HCC) CRP (ACUTE PHASE) Routine 11/05/2023 10: 27 AM CDT Crohn's disease of small and large intestines with complication (HCC) VITAMIN E Routine 11/05/2023 10:27 AM CDT Crohn's disease of small and large intestines with complication (HCC) FERRITIN Routine 11/05/2023 10:27 AM CDT Crohn's disease of small and large intestines with complication (HCC) COMPREHENSIVE METABOLIC PANEL Routine 11/05/2023 10:27 AM CDT High risk medications (not anticoagulants) long-term use Crohn's disease of small and large intestines with complication (HCC) documented in this encounter Results * eGFR (11/05/2023 10:27 AM CDT) eGFR 63 >=60 mL/min/1. 73 m2 Comment: Interpretive Data Reference Interval Normal ?>/= 90 mL/min/1.73m2 Mildly decreased* ? 60 - 89 mL/min/1.73m2 Mildly to moderately decreased ?45 - 59 mL/min/1.73m2 Moderately to severely decreased ??30 - 44 mL/min/1.73m2 Severely decreased ?15 - 29 mL/min/1.73m2 Kidney Failure ?< 15 ??mL/min/1.73m2 *Relative to young adult level Estimated glomerular filtration rate is determined by the 2020 CKD-EPI equation recommended by the National Kidney Foundation (A Unifying Approach to GFR Estimation: Recommendations of the NKF-ASK Task Force on Reassessing the Inclusion of Race in Diagnosing Kidney Disease, JASN 2020). The CKD-EPI equation should not be used for patients with unstable renal function and has not been validated in children and those over 70. Current interpretive data was last reviewed 2021. Blood 11/05/2023 10:2 7 AM CDT 11/05/2023 10:39 AM CDT us Nikolay Boucher MD LAB BLOOD ORDERABLES Final Result AMANDA HICKEY [phone] [facility]. [place] [address] * (ABNORMAL) Differential, auto (11/05/2023 10:27 AM CDT) Neutrophil abs 8.0(H) 1.5 - 6.5 K/cumm Imm gran abs 0.1 0.0 - 0.1 K/cumm [facility] Lymphocyte abs 1.3 0.8 - 3.3 K/cumm [facility] Monocyte abs 0.6 0.2 - 0.8 K/cumm [facility] Eosinophil abs 0.2 0.0 - 0.5 K/cumm [facility] Basophil abs 0.1 0.0 - 0.1 K/cumm [facility] Neutrophil pct 78.4 % [facility] Comment: Interpretive Data Percent cell count reference ranges are not reported, since discordance with absolute values may lead to misinterpretation of CBC data. Current Interpretive Data was last revised on 2017. Imm gran pct 1.2 % [facility] Comment: Interpretive Data Percent cell count reference ranges are not reported, since discordance with absolute values may lead to misinterpretation of CBC data. Current Interpretive Data was last revised on 2017. Lymphocyte pct 12.3 % [facility] Comment: Interpretive Data Percent cell count reference ranges are not reported, since discordance with absolute values may lead to misinterpretation of CBC data. Current Interpretive Data was last revised on 2017. Monocyte pct 6.0 % [facility] Comment: Interpretive Data Percent cell count reference ranges are not reported, since discordance with absolute values may lead to misinterpretation of CBC data. Current Interpretive Data was last revised on 2017. Eosinophil pct 1.5 % [facility] Comment: Interpretive Data Percent cell count reference ranges are not reported, since discordance with absolute values may lead to misinterpretation of CBC data. Current Interpretive Data was last revised on 2017. Basophil pct 0.6 % [facility] Comment: Interpretive Data Percent cell count reference ranges are not reported, since discordance with absolute values may lead to misinterpretation of CBC data. Current Interpretive Data was last revised on 2017. Blood 11/05/2023 10:2 7 AM CDT 11/05/2023 10:37 AM CDT Nikolay Boucher MD LAB BLOOD ORDERABLES Final Result Performing Organization Address [facility] [[email or web address]] Co de Phone Number AMANDA HICKEY [phone] [place], [place] [id number] * (ABNORMAL) CBC with auto differential (11/05/2023 10:27 AM CDT) WBC 10.1(H) 3.8 - 9.9 K/cumm Hgb 16.7 13.0 - 17.5 g/dL [facility] Hct 52.6(H) 38.9 - 50.3 % [facility] Plt 213 150 - 400 K/cumm [facility] MPV 9.8 9.1 - 12.3 fL [facility] RBC 5.59 4.30 - 5.80 M/cumm [facility] MCV 94.1 81.3 - 96.4 fL [facility] MCH 29.9 27.1 - 33.3 pg [facility] MCHC 31.7(L) 32.3 - 35.7 g/dL [facility] RDW CV 15.0(H) 11.1 - 14.9 % [facility] RDW SD 51.4(H) 35.7 - 48.1 fL [facility] NRBC abs 0.00 0.00 - 0.01 K/cumm [facility] Blood 11/05/2023 10:2 7 AM CDT 11/05/2023 10:37 AM CDT Nikolay Boucher MD LAB BLOOD ORDERABLES Final Result Performing Organization Address [facility] [[email or web address]] Co de Phone Number AMANDA HICKEY [phone] [place], [place] [phone] * Comprehensive metabolic panel (11/05/2023 10:27 AM CDT) Sodium 137 135 - 145 mmol/L Potassium, pl 4.3 3.3 - 4.9 mmol/L [facility] Comment:Hemolyzed; result ma y be falsely elevated. Chloride 100 97 - 110 mmol/L [facility] CO2 29 22 - 32 mmol/L [facility] Anion gap 8 2 - 15 mmol/L [facility] BUN 15 6 - 25 mg/dL [facility] Creatinine 1.30 0.80 - 1.30 mg/dL [facility] Glucose 115 70 - 199 mg/dL [facility] Comment: Interpretive Data Fasting glucose >/= 126 mg/dl is diagnostic for diabetes. ?? Fasting is defined as no caloric intake for at least 8 hours. Fasting glucose between 100 mg/dl to 125 mg/dl is diagnostic of prediabetes. In a patient with classic symptoms of hyperglycemia or hyperglycemic crisis, a random glucose >/= 200 mg/dl is diagnostic for diabetes. In the absence of unequivocal hyperglycemia, results should be confirmed by repeat testing. The classification and Diagnosis of Diabetes Diabetes Care 2021; 46: S19-S40. Current interpretive data was last revised 2022. Calcium 9.3 8.5 - 10.3 mg/dL [facility] Bilirubin, total 0.9 0.1 - 1.2 mg/dL [facility] Protein, pl 7.9 6.5 - 8.5 g/dL [facility] Albumin 4.4 3.5 - 5.0 g/dL [facility] Alk phos 114 40 - 130 Units/L [facility] ALT 27 7 - 55 Units/L [facility] AST 26 10 - 50 Units/L [facility] Comment:Hemolyzed; result ma y be falsely elevated. Blood 11/05/2023 10:2 7 AM CDT 11/05/2023 10:39 AM CDT us Nikolay Boucher MD LAB BLOOD ORDERABLES Final Result [facility] [address] [employer] [facility] [place] [address] * CRP (acute phase) (11/05/2023 10:27 AM CDT) Pathologist [facility] CRP <3.0 <=10.0 mg/L Blood 11/05/2023 10:2 7 AM CDT 11/05/2023 10:39 AM CDT Nikolay Boucher MD LAB BLOOD ORDERABLES Final Result Performing Organization Address [facility] de Phone Number [facility] [phone] [address] [employer] [place] [address] * Hepatitis B surface antibody (immune status) Blood (11/05/2023 10:27 AM CDT) Pathologist [facility] HBsAb (immune status) Nonreactive Comment: This result is consistent with a lack of immunity to Hepatitis B Virus when used in the setting of routine screening. Current interpretative data was last revised on 22 Testing performed by: [facility], [address] [place] [address]., [address] Blood 11/05/2023 10:2 7 AM CDT 11/05/2023 1:36 PM CDT Nikolay Boucher MD LAB MICROBIOLOGY - GENERAL ORDERABLES Final Result Performing Organization Address [facility] [[email or web address]] Co de Phone Number [facility]DA [facility] [phone] [address] [facility] [employer] [place] [address] * Hepatitis B core antibody, total Blood (11/05/2023 10:27 AM CDT) Pathologist [facility] Hep B core IgG/IgM Nonreactive Nonreactive Comment:Testing performed by : [facility], [address] [place] [address], [place]., [address] Blood 11/05/2023 10:2 7 AM CDT 11/05/2023 1:36 PM CDT Nikolay Boucher MD LAB MICROBIOLOGY - GENERAL ORDERABLES Final Result Performing Organization Address [facility] [[email or web address]] Co de Phone Number AMANDA HICKEY [phone] [place], [place] [phone] * T-SPOT.TB Blood (11/05/2023 10:27 AM CDT) [facility] T-SPOT.TB Negative SeeBelow Comment: Normal Value: Negative A negative test result does not exclude the possibility of exposure to or infection with Mycobacterium tuberculosis (M. tuberculosis). ??Patients with recent exposure to TB infected individuals exhibiting a negative T-SPOT.TB result should be considered for retesting within 6 weeks or if other relevant clinical symptoms indicate. ??Results from T-SPOT.TB testing must be used in conjunction with each individual's epidemiological history, current medical status, and results of other diagnostic evaluations. ??The T-SPOT.TB test is qualitative and results are reported as positive, borderline or negative, given that the test controls perform as expected. In line with the Centers for Disease Control and Prevention's 2010 recommendation to report quantitative measurements alongside the qualitative result, the laboratory provides spot counts for informational purposes only. ??The T-SPOT.TB test should not be interpreted as a quantitative test. T-SPOT.TB Panel A Spot Count 0 [facility] T-SPOT.TB Panel B Spot Count 1 [facility] T-SPOT.TB Negative Control Passed [facility] T-SPOT.TB Positive Control Passed [facility] Comment: Test Performed at: [facility] [address] [place] [address] ??[id number] ? RODNEY MAYES,PHD Blood 11/05/2023 10:2 7 AM CDT 11/05/2023 10:37 AM CDT Nikolay Boucher MD LAB MICROBIOLOGY - GENERAL ORDERABLES Final Result Performing Organization Address [facility] [[email or web address]] Co de Phone Number AMANDA DONAHUECH [phone] [place] [address] * Hepatitis B Surface Antigen Blood (11/05/2023 10:27 AM CDT) Pathologist [facility] HepBsAg Nonreactive Nonreactive Comment:Testing performed by : [facility], [address] [place] [address]., [address] Blood 11/05/2023 10:2 7 AM CDT 11/05/2023 12:16 PM CDT Nikolay Boucher MD LAB MICROBIOLOGY - GENERAL ORDERABLES Final Result Performing Organization Address [facility] [[email or web address]] Co de Phone Number [facility] [phone] [address] * Vitamin D 25 hydroxy (11/05/2023 10:27 AM CDT) Pathologist [facility] Vitamin D 25-OH 59 30 - 80 ng/mL Blood 11/05/2023 10:2 7 AM CDT 11/05/2023 10:39 AM CDT Nikolay Boucher MD LAB BLOOD ORDERABLES Final Result Performing Organization Address [facility] de Phone Number [facility] [address] [address] [facility] [place] [address] * Iron profile w/ IBC (11/05/2023 10:27 AM CDT) Pathologist [facility] Iron 78 50 - 150 mcg/dL Comment:Testing performed by : [facility], [address] [place] [address]., [address] TIBC 357 250 - 400 mcg/dL AMANDA BJWALEX Comment:Testing performed by : [facility], [address] [place] [address]., [address] Transferrin saturation 22 20 - 50 % AMANDA DENNISWALEX Comment:Testing performed by : [facility], [address] [place] [address]., [address] Blood 11/05/2023 10:2 7 AM CDT 11/05/2023 12:15 PM CDT Nikolay Boucher MD LAB BLOOD ORDERABLES Final Result Performing Organization Address [facility] [[email or web address]] Co de Phone Number AMANDA DENNIS[facility] [phone] [facility] [place] [place] [address] * Ferritin (11/05/2023 10:27 AM CDT) Ferritin 48 30 - 400 ng/mL Comment:Testing performed by : [facility], [facility] [facility], [place]., [address] Blood 11/05/2023 10:2 7 AM CDT 11/05/2023 12:15 PM CDT Nikolay Boucher MD LAB BLOOD ORDERABLES Final Result Performing Organization Address [facility] de Phone Number AMANDA [facility] [phone] [facility] [place] [address] * Vitamin A (11/05/2023 10:27 AM CDT) Pathologist [facility] Vitamin A 54.1 32.5 - 78.0 mcg/dL [place] [facility] Comment: ADDITIONAL INFORMATION This test was developed and its performance characteristics determined by [facility] in a manner consistent with CLIA requirements. This test has not been cleared or approved by the U.S. Food and Drug Administration. Test Performed by: [facility] - [place] [id number] [place] [address] Hairspring Staker: Saige Lunsford Ph.D.; CLIA# [id number] Blood 11/05/2023 10:2 7 AM CDT 11/05/2023 10:39 AM CDT Nikolay Boucher MD LAB BLOOD ORDERABLES Final Result Performing Organization Address [facility] [[email or web address]] Co de Phone Number AMANDA [facility] [phone] [place] [address] [place] [facility] * Vitamin E (11/05/2023 10:27 AM CDT) [facility] Tocopherol (Vit E) 6.8 5.5 - 17.0 mg/L [place] [facility] Comment: ADDITIONAL INFORMATION This test was developed and its performance characteristics determined by [facility] in a manner consistent with CLIA requirements. This test has not been cleared or approved by the U.S. Food and Drug Administration. Test Performed by: [facility] Laboratories - [place] [id number] [employer]spring Staker: Saige Lunsford Ph.D.; CLIA# [id number] Blood 11/05/2023 10:2 7 AM CDT 11/05/2023 10:40 AM CDT Nikolay Boucher MD LAB BLOOD ORDERABLES Final Result [facility] [address] [place] [address] [facility] documented in this encounter Visit Diagnoses Diagnosis Crohn's disease of small and large intestines with complication (HCC) High risk medications (not anticoagulants) long-term use Encounter for long-term (current) use of other medications Crohn's disease of both small and large intestine with intestinal obstruction (HCC) documented in this encounter Care Teams Feather Duster Winder Relationship Specialty Start Date End Date Tip Armenta MD [address] [address] PCP - General Family Medicine 03/18/19 Eleanor Ramon MD [address] [place] [address] Medical Oncologist/Health Program Analyst Hematology 2/16/21 documented as of this encounter
--- OUTSIDE RECORDS SUMMARY | 2024-05-18 22:12 | XMS_ITS | Encounter Summary ---
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 Patient can continue filling at [facility] as required by plan. TION ENGINEER documented in this encounter Plan of Treatment Upcoming Encounters Date Type Department Care Team (Late st Contact Info) Description 05/22/2024 10:45 AM AVIATION ENGINEER Hospital Encounter [facility] Endoscopy [address] [place] [address] Nikolay Boucher MD [address] [place] [address] 05/22/2024 10:45 AM AVIATION ENGINEER - 05/22/2024 11:15 AM AVIATION ENGINEER Surgery [facility] Endoscopy [address] [place] [address] Nikolay Boucher MD [address] [place] [address] EGD Scheduled Procedures Name Priority Associated Diagnoses Date/Ti me ESOPHAGOGASTRODUODENOSCOPY Crohn's disease of both small and large intestine with intestinal obstruction (HCC) 05/22/2024 10:45 AM AVIATION ENGINEER documented as of this encounter Visit Diagnoses Not on filedocumented in this encounter Care Teams Food Inspector Relationship Specialty Start Date End Date Tip Armenta MD [address] [address] PCP - General Family Medicine 03/18/19 Eleanor Ramon MD [address] [place], [place] [id number] Medical Oncologist/Airplane Woodworker Hematology 07/12/20 documented as of this encounter
--- OUTSIDE RECORDS SUMMARY | 2024-05-18 22:12 | XMS_ITS | Encounter Summary ---
Author Organization [facility] Address [address] [place] [address] Phone Care Team Providers Care Home Companion Name Role Phone Tip Armenta MD Primary Care Provider [phone] Eleanor Ramon MD Unavailable [phone] Reason for Visit * Reason Onset Date Comments Call from pt re: Humira refill 03/12/2023 Encounter Details Date Type Department Care Team (Late st Contact Info) Description 03/12/2023 Telephone [facility] Gastroenterology Formerly 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 Make sure he is staying hydrated and avoiding NSAIDs. Notify PCP since he his on BPmedications. * Telephone Encounter - Nati Castillo LPN - 03/12/2023 2:12 PM CDT VM received from patient on prescription refill line requesting refill of his Humira. Pt requestingreturn call at . Humira refill was previously denied as pt is currently overdue for safety labs which are required on an every 3 month basis for continued medication refills. Last labs completed in September 2022. Return call placed to pt this afternoon to discuss overdue safety labs. Spoke with Mello, we discussed his safety labs that are due. Pt requested that lab orders be sent to his local [facility], orders have been placed. Pt is aware. He did mention that he believes that he had bloodwork done recently ~ 2 months ago or so through his PCP's office. I provided Mello with our office fax number and told him that he could certainly reach out to his PCP's office and can have them fax over any recent bloodwork if he did complete this recently. Otherwise he is aware that orders are available athis local [facility] for labs to be completed if he has not had any drawn recently. Mello verbalized understanding. I advised him to contact the office either way and provide an update so we know whether to be expecting results via fax from his PCP's office or once he has completed labs at [facility], he is aware that we can authorize further Humira refills at that time. * Telephone Encounter - Nati Castillo LPN - 03/12/2023 8:27 AM CDT Safety labs overdue. Must be completed for further refills documented in this encounter Plan of Treatment Upcoming Encounters Date Type Department Care Team (Late st Contact Info) Description 05/22/2024 10:45 AM FILEMAKER DEVELOPER Hospital Encounter [facility] Endoscopy [address] [place] [address] Nikolay Boucher MD [address] [place] [address] 05/22/2024 10:45 AM FILEMAKER DEVELOPER - 05/22/2024 11:15 AM FILEMAKER DEVELOPER Surgery [facility] Endoscopy [address] [place] [address] Nikolay Boucher MD [address] [place] [address] EGD Scheduled Orders Name Type Priority Associated Diagnoses Orde r Schedule CBC with auto differential Lab Routine Crohn's disease of small and large intestines with complication (HCC) High risk medications (not anticoagulants) long-term use Long-term use of adalimumab Every 3 months for 2 Occurrences starting 03/12/2023 until 03/12/2024, 1 completed Comprehensive metabolic panel Lab Routine Crohn's disease of small and large intestines with complication (HCC) High risk medications (not anticoagulants) long-term use Long-term use of adalimumab Every 3 months for 2 Occurrences starting 03/12/2023 until 03/12/2024, 1 completed CRP (acute phase) Lab Routine Crohn's disease of small and large intestines with complication (HCC) High risk medications (not anticoagulants) long-term use Long-term use of adalimumab Every 3 months for 2 Occurrences starting 03/12/2023 until 03/12/2024, 1 completed Scheduled Procedures Name Priority Associated Diagnoses Date/Ti me ESOPHAGOGASTRODUODENOSCOPY Crohn's disease of both small and large intestine with intestinal obstruction (HCC) 05/22/2024 10:45 AM FILEMAKER DEVELOPER documented as of this encounter Procedures Procedure Name Priority Date/Time Associated Diagnosis Comments COPY(IES) SENT TO: Routine 03/13/2023 9: 11 AM CDT CBC WITH AUTO DIFFERENTIAL Routine 03/13/2023 9:11 AM CDT Crohn's disease of small and large intestines with complication (HCC) High risk medications (not anticoagulants) long-term use Long-term use of adalimumab CRP (ACUTE PHASE) Routine 03/13/2023 9:1 1 AM CDT Crohn's disease of small and large intestines with complication (HCC) High risk medications (not anticoagulants) long-term use Long-term use of adalimumab COMPREHENSIVE METABOLIC PANEL Routine 03/13/2023 9:11 AM CDT Crohn's disease of small and large intestines with complication (HCC) High risk medications (not anticoagulants) long-term use Long-term use of adalimumab documented in this encounter Results * COPY(IES) SENT TO: (03/13/2023 9:11 AM CDT) COPY(IES) SENT TO: [facility] Comment: ?[facility] ?COPY TO ACCOUNT ?[id number] ?[place] [address] 03/13/2023 9:11 AM CDT 03/13/2023 9:14 AM CDT us Nikolay Boucher MD LAB BLOOD ORDERABLES Final Result [facility] * CRP (acute phase) (03/13/2023 9:11 AM CDT) C-RP 3.4 <8.0 mg/L [facility] Blood 03/13/2023 9:11 AM CDT 03/13/2023 9:14 AM CDT us Nikolay Boucher MD LAB BLOOD ORDERABLES Final Result [facility] [address] [place] [address] * (ABNORMAL) Comprehensive metabolic panel (03/13/2023 9:11 AM CDT) Glucose 98 65 - 99 mg/dL [facility] Comment: ? Fasting reference interval BUN 13 7 - 25 mg/dL [facility] Creatinine 1.49(H) 0.70 - 1.30 mg/dL [facility] eGFR 54(L) > OR = 60 mL/min/1.7 3m2 [facility] BUN/creat ratio 9 6 - 22 (calc) [facility] Sodium 137 135 - 146 mmol/L [facility] Potassium, pl 4.3 3.5 - 5.3 mmol/L [facility] Chloride 99 98 - 110 mmol/L [facility] CO2 32 20 - 32 mmol/L [facility] Calcium 9.2 8.6 - 10.3 mg/dL [facility] Protein, sr 7.4 6.1 - 8.1 g/dL [facility] Albumin 4.5 3.6 - 5.1 g/dL [facility] GLOBULIN 2.9 1.9 - 3.7 g/dL (calc) [facility] Alb/glob ratio 1.6 1.0 - 2.5 (calc) [facility] Bilirubin, total 1.0 0.2 - 1.2 mg/dL [facility] Alk phos 86 35 - 144 U/L [facility] AST 32 10 - 35 U/L [facility] ALT (SGPT) 27 9 - 46 U/L [facility] Blood 03/13/2023 9:11 AM CDT 03/13/2023 9:14 AM CDT us Nikolay Boucher MD LAB BLOOD ORDERABLES Final Result [facility] [address] [address] * CBC with auto differential (03/13/2023 9:11 AM CDT) WBC 8.2 3.8 - 10.8 Thousand/u L [facility] RBC, POC 5.39 4.20 - 5.80 Million/uL [facility] Hgb 16.2 13.2 - 17.1 g/dL [facility] Hct 49.3 38.5 - 50.0 % [facility] MCV 91.5 80.0 - 100.0 fL [facility] MCH 30.1 27.0 - 33.0 pg [facility] MCHC 32.9 32.0 - 36.0 g/dL [facility] Rdw 13.6 11.0 - 15.0 % [facility] Platelets 215 140 - 400 Thousand/u L [facility] MPV 9.8 7.5 - 12.5 fL [facility] Neutrophils, abs 5,535 1,500 - 7,800 cells/uL [facility] Lymphocytes, abs 1,689 850 - 3,900 cells/uL [facility] Monocyte abs 779 200 - 950 cells/uL [facility] Eosinophils, abs 139 15 - 500 cells/uL [facility] Basophils, abs 57 0 - 200 cells/uL [facility] Neutrophils 67.5 % [facility] Lymphocyte pct 20.6 % [facility] Monocytes 9.5 % [facility] Eosinophils 1.7 % [facility] Basophils 0.7 % [facility] Blood 03/13/2023 9:11 AM CDT 03/13/2023 9:14 AM CDT us Nikolay Boucher MD LAB BLOOD ORDERABLES Final Result [facility] [employer] [address] [place] [address] documented in this encounter Visit Diagnoses Diagnosis High risk medications (not anticoagulants) long-term use- Primary Encounter for long-term (current) use of other medications Crohn's disease of small and large intestines with complication (HCC) Long-term use of adalimumab Crohn's disease of both small and large intestine with intestinal obstruction (HCC) documented in this encounter Care Teams Home Companion Relationship Specialty Start Date End Date Tip Armenta MD [email or web address] [address] PCP - General Family Medicine 03/18/19 Eleanor Ramon MD [address] [facility] [address] [place] [address] Medical Oncologist/Director Semiconductor Hematology 07/12/20 documented as of this encounter
--- OUTSIDE RECORDS SUMMARY | 2024-05-18 22:12 | XMS_ITS | Encounter Summary ---
Author Organization [facility] Address [address] [place] [address] Phone Care Team Providers Care Hosiery Pairer Name Role Phone Tip Armenta MD Primary Care Provider [phone] Eleanor Ramon MD Unavailable [phone] Reason for Visit * Reason Onset Date Comments Call from pt re: Danielle 02/11/2023 Encounter Details Date Type Department Care Team (Late st Contact Info) Description 02/11/2023 Telephone [facility] Gastroenterology [facility] 12th [place] [address] [place] [address] Nati Castillo LPN Call from pt re: Danielle Social History Tobacco Use Types Packs/Day Years [...] on file Legal Sex Male 1:20 AM MANAGER OF FINANCIAL Gender Identity Not on file Sexual Orientation Not on file documented as of this encounter Miscellaneous Notes * Telephone Encounter - Fanning, Justine, RN - 02/11/2023 3:32 PM CDT Returned pt call. He has angular chelitis and he says that if he lets it go, it will continue to get worse. Patient says that it is only a matter of time before it is also in his throat. Discussed with Guy Jarerll to refill x 1. Patient must keep upcoming visit with Dr. Boucher * Telephone Encounter - Nati Castillo LPN - 02/11/2023 2:31 PM CDT VM received from patient on prescription refill line requesting refill of Nystatin suspension. In reviewing pt's chart, this medication has not been refilled for the patient since 11/2021. Pt did not provide any addt'l information on VM as to whether he was having any symptoms/why he was needing a refill of Nystatin. Last seen virtually in 07/2021. Scheduled to establish care with Dr. Nikolay Boucher on 04/16/2023. Pt can be reached at . documented in this encounter Plan of Treatment Upcoming Encounters Date Type Department Care Team (Late st Contact Info) Description 05/22/2024 10:45 AM [facility] Hospital Encounter [facility] Endoscopy [address] [place] [address] Nikolay Boucher MD [address] [place] [address] 05/22/2024 10:45 AM MANAGER OF FINANCIAL - 05/22/2024 11:15 AM MANAGER OF FINANCIAL Surgery [facility] Endoscopy [address] [place] [address] Nikolay Boucher MD [address] [place] [address] EGD Scheduled Procedures Name Priority Associated Diagnoses Date/Ti me ESOPHAGOGASTRODUODENOSCOPY Crohn's disease of both small and large intestine with intestinal obstruction (HCC) 05/22/2024 10:45 AM MANAGER OF FINANCIAL documented as of this encounter Visit Diagnoses Not on filedocumented in this encounter Care Teams Hosiery Pairer Relationship Specialty Start Date End Date Tip Armenta MD [address] [address] PCP - General Family Medicine 03/18/19 Eleanor Ramon MD [address] [facility] [address] [place] [address] Medical Oncologist/Veterinary Assistant Technician Hematology 07/12/20 documented as of this encounter
--- OUTSIDE RECORDS SUMMARY | 2024-05-18 22:12 | XMS_ITS | Encounter Summary ---
Author Organization [facility] Address [address] [place] [address] Phone Care Team Providers Care Lifestyle Coordinator Name Role Phone Tip Armenta MD Primary Care Provider [phone] Eleanor Ramon MD Unavailable Encounter Details Date Type Department Care Team (Late st Contact Info) Description 10/10/2023 Telephone [facility] Gastroenterology [address] [facility] 12th [place] [address] [place] [address] Merary García RMA Social History Tobacco Use Types Packs/Day Years [...] on file Legal Sex Male 1:20 AM DERMATOLOGY TEACHER Gender Identity Not on file Sexual Orientation Not on file documented as of this encounter Miscellaneous Notes * Telephone Encounter - Merary García RMA - 10/10/2023 4:11 PM CDT Pt called and LM stating he would like to switch to Dr. Ritchie. documented in this encounter Plan of Treatment Upcoming Encounters Date Type Department Care Team (Late st Contact Info) Description 05/22/2024 10:45 AM DERMATOLOGY TEACHER Hospital Encounter [facility] Endoscopy [address] [place] [address] Nikolya Boucher MD [address] [place] [address] 05/22/2024 10:45 AM DERMATOLOGY TEACHER - 05/22/2024 11:15 AM DERMATOLOGY TEACHER Surgery [facility] Endoscopy [address] [place] [address] Nikolay Boucher MD [address] [place] [address] EGD Scheduled Procedures Name Priority Associated Diagnoses Date/Ti me ESOPHAGOGASTRODUODENOSCOPY Crohn's disease of both small and large intestine with intestinal obstruction (HCC) 05/22/2024 10:45 AM DERMATOLOGY TEACHER documented as of this encounter Visit Diagnoses Not on filedocumented in this encounter Care Teams Lifestyle Coordinator Relationship Specialty Start Date End Date Tip Armenta MD [address] [address] PCP - General Family Medicine 03/18/19 Eleanor Ramon MD [address] [place], [place] [address] Medical Oncologist/Director Supply Hematology 07/12/20 documented as of this encounter
--- OUTSIDE RECORDS SUMMARY | 2024-05-18 22:12 | XMS_ITS | Encounter Summary ---
Author Organization [facility] Address [address] [place] [address] Phone Care Team Providers Care Jacquard Loom Fixer Name Role Phone Tip Armenta MD Primary Care Provider [phone] Eleanor Ramon MD Unavailable [phone] Encounter Details Date Type Department Care Team (Late st Contact Info) Description 10/15/2023 Telephone [facility] Gastroenterology [address] [facility] 12th [place] [address] [place] [address] Ashley Castillo CMA Social History [...] on file Legal Sex Male 1:20 AM SUPERVISOR SLASHING DEPARTMENT Gender Identity Not on file Sexual Orientation Not on file documented as of this encounter Miscellaneous Notes * Telephone Encounter - Ashley Castillo CMA - 10/15/2023 2:44 PM CDT Spoke with Romario at [facility] - Appeal for Franko has been denied. Will send to scan once received. documented in this encounter Plan of Treatment Upcoming Encounters Date Type Department Care Team (Late st Contact Info) Description 05/22/2024 10:45 AM SUPERVISOR SLASHING DEPARTMENT Hospital Encounter [facility] Endoscopy [address] [place] [address] Nikolay Boucher MD [address] [place] [address] 05/22/2024 10:45 AM SUPERVISOR SLASHING DEPARTMENT - 05/22/2024 11:15 AM SUPERVISOR SLASHING DEPARTMENT Surgery [facility] Endoscopy [address] [place] [address] Nikolay Boucher MD [address] [place] [address] EGD Scheduled Procedures Name Priority Associated Diagnoses Date/Ti me ESOPHAGOGASTRODUODENOSCOPY Crohn's disease of both small and large intestine with intestinal obstruction (HCC) 05/22/2024 10:45 AM SUPERVISOR SLASHING DEPARTMENT documented as of this encounter Visit Diagnoses Not on filedocumented in this encounter Care Teams Jacquard Loom Fixer Relationship Specialty Start Date End Date Tip Armenta MD [address] [address] PCP - General Family Medicine 03/18/19 Eleanor Ramon MD [address] [place], [place] [address] Medical Oncologist/Flight Dispatcher Hematology 07/12/20 documented as of this encounter
--- OUTSIDE RECORDS SUMMARY | 2024-05-18 22:12 | XMS_ITS | Encounter Summary ---
Author Organization [facility] Address [address] [place] [address] Care Team Providers Care Wildlife Photographer Name Role Phone Tip Armenta MD Primary Care Provider [phone] Eleanor Ramon MD Unavailable [phone] Reason for Referral * Diagnostic Imaging (Routine) - Closed Specialty Diagnoses / Procedures Referred By Contac t Referred To Contact Diagnoses Lumbar pain Procedures XR Scoliosis 6 or More Views Michael Viveros PA [address] [place] [address] Phone: tel: fax: [place] [address] [place] [address] Referral ID Status Reason Start Date Expiration Date Visits Re quested Visits Authorized [id number] Closed 01/07/2024 02/05/2025 1 1 Reason for Visit * Diagnostic Imaging (Routine) - Closed Specialty Diagnoses / Procedures Referred By Contac t Referred To Contact Diagnoses Lumbar pain Procedures XR Scoliosis 6 or More Views Michael Viveros PA [address] [place] [address] Phone: tel: fax: [place] [address] [place] [address] Referral ID Status Reason Start Date Expiration Date Visits Re quested Visits Authorized [id number] Closed 01/07/2024 02/05/2025 1 1 Encounter Details Date Type Department Care Team (Latest Contact Info) Description 01/15/2024 8:30 AM CDT - 01/15/2024 11:59 PM CDT Hospital Encounter [facility] [address] [facility] [address] [place] [address] Lumbar pain Discharge Disposition: Discharge to home or [...] file Legal Sex Male 1:20 AM AGRICULTURAL LOAN OFFICER Gender Identity Not on file Sexual Orientation [...] ML Q 2 WEEKS UTD 4 12/10/2017 cyclobenzaprine (FLEXERIL) 5 mg tabletIndications :Muscle Spasm Take 1 tablet (5 mg total) by mouth 3 (three) times a day as needed for muscle spasms 90 tablet 01/15/2024 diphenoxylate-atr opine (LOMOTIL) 2.5-0.025 mg per tablet [...] by mouth nightly as needed 5 12/13/2017 methylPREDNISolon e (MEDROL DOSEPACK) 4 mg Dosepack Take as directed on package 1 packet 01/15/2024 4 adalimumab-adaz (Hyrimoz,CF, Pen) 40 mg/0.4 mL pen injectorIndicatio ns:Crohn's Disease Inject 0.4 mL under the skin every 14 (fourteen) days Safety labs are required every 3 months for refills. Next labs are due 01/2024. 0.8 mL 2 11/11/2023 4 nystatin 100,000 unit/mL suspensionIndicat ions:oral candidiasis Shake well. Swish and swallow 5 ml twice daily for 14 days 140 mL 02/11/2023 4 documented as of this encounter Discharge Disposition Disposition Code Departure Means Destination Discharge to home or self care documented in this encounter Plan of Treatment Upcoming Encounters Date Type Department Care Team (Late st Contact Info) Description 05/22/2024 10:45 AM [facility] Hospital Encounter [facility] Endoscopy [address] [place] [address] Nikolay Boucher MD [address] [place] [address] 05/22/2024 10:45 AM AGRICULTURAL LOAN OFFICER - 05/22/2024 11:15 AM AGRICULTURAL LOAN OFFICER Surgery [facility]oscopy [address] [place] [address] Nikolay Boucher MD [address] [place] [address] EGD Scheduled Procedures Name Priority Associated Diagnoses Date/Ti me ESOPHAGOGASTRODUODENOSCOPY Crohn's disease of both small and large intestine with intestinal obstruction (HCC) 05/22/2024 10:45 AM AGRICULTURAL LOAN OFFICER documented as of this encounter Procedures Procedure Name Priority Date/Time Associated Diagnosis Comments XR SCOLIOSIS 6 OR MORE VIEWS Schedule Routine, Read Routine (OP Routine) 01/15/2024 9:30 AM CDT Lumbar pain documented in this encounter Results * XR Scoliosis 6 [...] it. Electronically signed by: Neo Monk M.D. Michael ABAD IMG XR PROCEDURES Final R esult documented in this encounter Visit Diagnoses Diagnosis Lumbar pain Lumbago Crohn's disease of both small and large intestine with intestinal obstruction (HCC) documented in this encounter Care Teams Wildlife Photographer Relationship Specialty Start Date End Date Tip Armenta MD [address] [address] PCP - General Family Medicine 03/18/19 Eleanor Ramon MD [address] [place] [address] Medical Oncologist/Green End Department Supervisor Hematology 07/12/20 documented as of this encounter
--- OUTSIDE RECORDS SUMMARY | 2024-05-18 22:12 | XMS_ITS | Encounter Summary ---
Author Organization [facility] Address [address] [place] [address] Phone Care Team Providers Care Store Deli Manager Name Role Phone Tip Armenta MD Primary Care Provider [phone] Eleanor Ramon MD Unavailable [phone] Reason for Visit * Reason Onset Date Comments PA for Debacterol 02/19/2023 PA Approved 02/19/2023 Encounter Details Date Type Department Care Team (Late st Contact Info) Description 02/19/2023 Documentation [facility] Gastroenterology [facility] 12th [place] [address] [place] [address] Sofia Talamantes for Debacterol; PA Approved Social History Tobacco Use Types Packs/Day Years [...] on file Legal Sex Male 1:20 AM DIRECTOR OF ASSESSING Gender Identity Not on file Sexual Orientation Not on file documented as of this encounter Progress Notes * Sofia Talamantes - 02/19/2023 1:56 PM CDT 02/25/23 - PA approved through [facility] #[id number] starting 02/21/2023 through 05/23/2023 (#24 per30 days) 02/20/23 - additional PA form received, filled out and re-faxed back to [phone] along with med recs PA submitted to [facility] through [facility] for Debacterol (#24 per 30 days) documented in this encounter Plan of Treatment Upcoming Encounters Date Type Department Care Team (Late st Contact Info) Description 05/22/2024 10:45 AM DIRECTOR OF ASSESSING Hospital Encounter [facility] Endoscopy [address] [place] [address] Nikolay Boucher MD [address] [facility] [place] [address] 05/22/2024 10:45 AM DIRECTOR OF ASSESSING - 05/22/2024 11:15 AM DIRECTOR OF ASSESSING Surgery [facility] Endoscopy [address] [place] [address] Nikolay Boucher MD [address] [facility] [place] [address] EGD Scheduled Procedures Name Priority Associated Diagnoses Date/Ti wi ESOPHAGOGASTRODUODENOSCOPY Crohn's disease of both small and large intestine with intestinal obstruction (HCC) 05/22/2024 10:45 AM DIRECTOR OF ASSESSING documented as of this encounter Visit Diagnoses Not on filedocumented in this encounter Care Teams Store Deli Manager Relationship Specialty Start Date End Date Tip Armenta MD [address] [address] PCP - General Family Medicine 03/18/19 Eleanor Ramon MD [address] [place] [address] Medical Oncologist/Personal Injury Legal Assistant Hematology 07/12/20 documented as of this encounter
--- OUTSIDE RECORDS SUMMARY | 2024-05-18 22:12 | XMS_ITS | Encounter Summary ---
Author Organization [facility] Address [address] [facility] [address] [place] [address] Phone Care Team Providers Care Ac/Dc Rewinder Name Role Phone Tip Armenta MD Primary Care Provider [phone] Eleanor Ramon MD Unavailable [phone] Encounter Details Date Type Department Care Team (Late st Contact Info) Description 11/05/2023 9:15 AM CDT Office Visit [facility] [address] [facility] Medical Office Building [address] [place] [address] Nikolay Boucher MD [address] [place] [address] High risk medications (not anticoagulants) long-term use (Primary Dx); Crohn's disease of small and large intestines with complication (HCC); Healthcare maintenance Social History Tobacco Use Types Packs/Day Years [...] on file Legal Sex Male 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 Gender Identity Not on file Sexual Orientation Not on file documented as of this encounter Last Filed Vital Signs Vital Sign Reading Time Taken Comments Blood Pressure 175/99 11/05/2023 9:12 AM CDT Pulse 76 11/05/2023 9:12 AM CDT Temperature - - Respiratory Rate - - Oxygen Saturation 96% 11/05/2023 9:12 AM CDT Inhaled Oxygen Concentration - - Weight 97.1 kg (214 lb) 11/05/2023 9:12 AM CDT Height 188 cm (6' 2 ) 11/05/2023 9:12 AM CDT Body Mass Index 27.48 11/05/2023 9:12 AM CDT documented in this encounter Progress Notes * Nikolay Boucher MD - 11/05/2023 9:15 AM CDT Images from the original note were not included. [facility] OF [facility]IC[facility] DIV[facility] OF GASTROENTEROLOGY Clinic Address: [address] [place] [address], [place] [address] Mailing Address: [address] [place] [address], [place] [address] [place] [address] NAME: Mello Herbert : 1965 DOS: 11/05/2023 Primary Care Physician: Tip Armenta MD Chief complaint: crohn's HPI Mr. Herbert is a 58 y.o. male with stricturing ileocolonic Crohn's is here for follow up. His GI symptoms are stable. He has chronic diarrhea managed with loperamide and lomotil. We spent most of the visit discussing his frustration that his insurance company mandated he switch to an adalimumab biosimilar. We appealed this and it was denied. Patient Active Problem List Diagnosis Date Noted Healthcare maintenance 04/17/2023 Immunizations: Influenza annual Pneumococcus (Prevnar 20 x1 or Prevnar 13 followed by Pneumovax 8 weeks later, then Pneumovax in 5 years and again at age 64) Zoster HBV Covid Cervical cancer screening: routine follow up with directory compiler Skin cancer screening: consider referral to dermatology [...] 02/09/2021 Added automatically from request for surgery [id number] Chronic diarrhea 07/15/2020 High risk medications (not [...] months for refills. Next labs are due now., Disp: 0.8 mL, Rfl: 0 ALPRAZolam (XANAX) 1 mg tablet, TK 1/2 [...] for muscle spasms for up to 15 days, Disp: 45 tablet, Rfl: 0 diphenoxylate-atropine (LOMOTIL) 2.5-0.025 mg [...] nightly as needed, Disp: , Rfl: 5 gabapentin (NEURONTIN) 300 mg capsule, Take 1 capsule (300 mg total) by mouth 3 (three) times a day, Disp: 270 capsule, Rfl: 0 Allergies Allergen Reactions Latex Rash ROS As outlined in HPI. All other systems negative. Physical Exam Vital Signs BP (!) 175/99 (BP Location: Left arm, Patient Position: Sitting) Pulse 76 Ht 188 cm (6' 2 ) Wt 97.1 kg (214 lb) SpO2 96% BMI 27.48 kg/m?? Body mass index is 27.48 kg/m??. Wt Readings from Last 10 Encounters: 11/05/23 97.1 kg (214 lb) 04/04/23 100.5 kg (221 lb 9.6 oz) 12/07/22 97.5 kg (215 lb) 09/28/22 102.1 kg (225 lb) 07/09/22 102.1 kg (225 lb) 03/28/22 100.2 kg (220 lb 12.8 oz) 03/14/22 99.8 kg (220 lb) 02/21/22 99.3 kg (219 lb) 01/24/22 99.7 kg (219 lb 12.8 oz) 01/20/22 99.3 kg (219 lb) [place] body weight: 82.2 kg (181 lb 3.5 oz) Adjusted ideal body weight: 88.1 kg (194 lb 5.3 oz) General: well appearing Eyes: no scleral [...] <=10.0 mg/L Final Comment: Testing performed by: [address] [address] C-RP Date Value Ref Range Status 03/13/2023 3.4 <8.0 mg/L Final Erythrocyte sedimentation rate Date Value Ref Range Status 01/25/2022 14 1 - 20 mm/hr Final Comment: Testing performed by: [address] [address] 01/20/2022 9 1 - 20 mm/hr Final Comment: Testing performed by: [address] [address] Imaging None Endoscopy None Assessment and Plan: Problem List Items Addressed This Visit Crohn's disease of both small and large intestine (HCC) Continue adalimumab. I spent a long time reassuring him that data we have suggests biosimilars haveequivalent efficacy and safety. I share their concern that if he loses more bowel he could be left with short bowel. He and his asked about switching to risankizumab. I recommend continuing withadalimumab biosimilar since he is responding to the anti-TNF mechanism. If he flares, risankizumab is a good option. Relevant Orders CBC with auto differential (Completed) Comprehensive metabolic panel (Completed) CRP (acute phase) (Completed) Hepatitis B core antibody, total Blood (Completed) Hepatitis B surface antibody (immune status) Blood (Completed) Hepatitis B Surface Antigen Blood (Completed) T-SPOT.TB Blood Vitamin D 25 hydroxy (Completed) Iron profile w/ IBC (Completed) Ferritin (Completed) Vitamin A Vitamin E High risk medications (not anticoagulants) long-term use - Primary All immunosuppressants increase the risk of infection [...] and in addition should follow with a dehydrogenation operator head for skin cancer screening. There may be a small risk of heart failure so any new HF symptoms would prompt an evaluation and likely discontinuation of therapy. Relevant Orders CBC with auto differential (Completed) Comprehensive metabolic panel (Completed) Hepatitis B core antibody, total Blood (Completed) Hepatitis B surface antibody (immune status) Blood (Completed) Hepatitis B Surface Antigen Blood (Completed) T-SPOT.TB Blood Healthcare maintenance We did not discuss vaccines today Nikolay Boucher MD Solid Waste Landfill Technician My total encounter time on 11/05/2023 was 45 minutes which was spent in the activities documented inthe note. This includes time spent prior to the visit and after the visit in direct care of the patient. This time does not include time spent in any separately reportable services. documented in this encounter Miscellaneous Notes * Assessment & Plan Note - Nikolay Boucher MD - 11/05/2023 4:33 PM CDT Associated Problem(s): Healthcare maintenance We did not discuss vaccines today * Assessment & Plan Note - Nikolay Boucher MD - 11/05/2023 4:33 PM CDT Associated Problem(s): Crohn's disease of both small and large intestine (HCC) Continue adalimumab. I spent a long time reassuring him that data we have suggests biosimilars haveequivalent efficacy and safety. I share their concern that if he loses more bowel he could be left with short bowel. He and his asked about switching to risankizumab. I recommend continuing withadalimumab biosimilar since he is responding to the anti-TNF mechanism. If he flares, risankizumab is a good option. * Assessment & Plan Note - Nikolay Boucher MD - 11/05/2023 4:30 PM CDT Associated Problem(s): High risk medications (not anticoagulants) [...] and in addition should follow with a dehydrogenation operator head for skin cancer screening. There may be a small risk of heart failure so any new HF symptoms would prompt an evaluation and likely discontinuation of therapy. documented in this encounter Plan of Treatment Upcoming Encounters Date Type Department Care Team (Late st Contact Info) Description 05/22/2024 10:45 AM [facility] Hospital Encounter [facility] Endoscopy [address] [place] [address] Nikolay Boucher MD [address] [place] [address] 05/22/2024 10:45 AM [facility] [facility] - 05/22/2024 11:15 AM [employer] Surgery [facility] End[address] [place] [address] Nikolay Boucher MD [facility] [address] [place] [address] EGD Scheduled Procedures Name Priority Associated Diagnoses Date/Ti me ESOPHAGOGASTRODUODENOSCOPY Crohn's disease of both small and large intestine with intestinal obstruction (HCC) 05/22/2024 10:45 AM [employer] documented as of this encounter Results * Vitamin E (11/05/2023 10:27 AM CDT) Pathologist [facility] Tocopherol (Vit E) 6.8 5.5 - 17.0 mg/L [facility] Comment: ADDITIONAL INFORMATION This test was developed and its performance characteristics determined by [facility] in a manner consistent with CLIA requirements. This test has not been cleared or approved by the U.S. Food and Drug Administration. Test Performed by: [facility] [place] [address] Masonry Supervisor: Saige Lunsford Ph.D.; CLIA# [id number] Blood 11/05/2023 10:2 7 AM CDT 11/05/2023 10:40 AM CDT us Nikolay Boucher MD LAB BLOOD ORDERABLES Final Result [facility] [address] Department [place] [address] [facility] * Vitamin A (11/05/2023 10:27 AM CDT) Pathologist [facility] Vitamin A 54.1 32.5 - 78.0 mcg/dL [facility] Comment: ADDITIONAL INFORMATION This test was developed and its performance characteristics determined by [facility] in a manner consistent with CLIA requirements. This test has not been cleared or approved by the U.S. Food and Drug Administration. Test Performed by: [facility] - [facility] [address] [place] [address] Masonry Supervisor: Saige Lunsford Ph.D.; CLIA# [id number] Blood 11/05/2023 10:2 7 AM CDT 11/05/2023 10:39 AM CDT Nikolay Boucher MD LAB BLOOD ORDERABLES Final Result Performing Organization Address City/[facility]/ZIP Co de Phone Number [facility] [address] [place] [address] [facility] * Ferritin (11/05/2023 10:27 AM CDT) Ferritin 48 30 - 400 ng/mL Comment:Testing performed by : [facility], [address] [place] [address]., [address] Blood 11/05/2023 10:2 7 AM CDT 11/05/2023 12:15 PM CDT Nikolay Boucher MD LAB BLOOD ORDERABLES Final Result Performing Organization Address City/[facility]/ZIP Co de Phone Number [facility] [address] [place] [address] * Iron profile w/ IBC (11/05/2023 10:27 AM CDT) Iron 78 50 - 150 mcg/dL Comment:Testing performed by : [facility], [address] [place] [address]., [address] TIBC 357 250 - 400 mcg/dL [facility] Comment:Testing performed by : [facility], [address] [place] [address]., [address] Transferrin saturation 22 20 - 50 % AM[facility]DA [facility]ICKEY Comment:Testing performed by : [facility], [facility] [facility], [place]., [address] Blood 11/05/2023 10:2 7 AM CDT 11/05/2023 12:15 PM CDT Nikolay Boucher MD LAB BLOOD ORDERABLES Final Result Performing Organization Address [facility] de Phone Number [facility]DA [facility] [address] [facility] [place] [address] * Vitamin D 25 hydroxy (11/05/2023 10:27 AM CDT) Pathologist [facility] Vitamin D 25-OH 59 30 - 80 ng/mL Blood 11/05/2023 10:2 7 AM CDT 11/05/2023 10:39 AM CDT Nikolay Boucher MD LAB BLOOD ORDERABLES Final Result Performing Organization Address [facility] Phone Number [facility] [address] [address] [facility] [place] [address] * T-SPOT.TB Blood (11/05/2023 10:27 AM CDT) [facility] T-SPOT.TB Negative SeeBelow Comment: Normal Value: Negative [...] test. T-SPOT.TB Panel A Spot Count 0 [facility] T-SPOT.TB Panel B Spot Count 1 [facility] T-SPOT.TB Negative Control Passed [facility] T-SPOT.TB Positive Control Passed [facility] Comment: Test Performed at: [facility], [facility] [address] [place], [place] ??[address] ? RODNEY MAYES,PHD Blood 11/05/2023 10:2 7 AM CDT 11/05/2023 10:37 AM CDT Nikolay Boucher MD LAB MICROBIOLOGY - GENERAL ORDERABLES Final Result [facility] [address] [address] [address] * Hepatitis B Surface Antigen Blood (11/05/2023 10:27 AM CDT) HepBsAg Nonreactive Nonreactive Comment:Testing performed by : [facility], [facility] [facility], [place]., [address] Blood 11/05/2023 10:2 7 AM CDT 11/05/2023 12:16 PM CDT Nikolay Boucher MD LAB MICROBIOLOGY - GENERAL ORDERABLES Final Result [facility] [address] [address] [address] * Hepatitis B surface antibody (immune status) Blood (11/05/2023 10:27 AM CDT) HBsAb (immune status) Nonreactive Comment: This result is consistent with a lack of immunity to Hepatitis B Virus when used in the setting of routine screening. Current interpretative data was last revised on 22 Testing performed by: [facility], [address] [facility] [place] [address] Blood 11/05/2023 10:2 7 AM CDT 11/05/2023 1:36 PM CDT Nikolay Boucher MD LAB MICROBIOLOGY - GENERAL ORDERABLES Final Result Performing Organization Address [facility] Co de Phone Number [facility]NIS[facility] [address] [address] [facility] [place] [address] * Hepatitis B core antibody, total Blood (11/05/2023 10:27 AM CDT) [facility] Hep B core IgG/IgM Nonreactive Nonreactive Comment:Testing performed by : [facility], [address] [place] [address], [place]., [address] Blood 11/05/2023 10:2 7 AM CDT 11/05/2023 1:36 PM CDT Nikolay Boucher MD LAB MICROBIOLOGY - GENERAL ORDERABLES Final Result Performing Organization Address [facility] Co de Phone Number AM[facility]DA DENNISCH [address] [facility]. [place] [address] * CRP (acute phase) (11/05/2023 10:27 AM CDT) [facility] CRP <3.0 <=10.0 mg/L Blood 11/05/2023 10:2 7 AM CDT 11/05/2023 10:39 AM CDT Nikolay Boucher MD LAB BLOOD ORDERABLES Final Result Performing Organization Address [facility] Co de Phone Number [facility]NISW[facility] [address] [facility] [place] [address] * Comprehensive metabolic panel (11/05/2023 10:27 AM CDT) [facility] Sodium 137 135 - 145 mmol/L Potassium, pl 4.3 3.3 - 4.9 mmol/L [facility] Comment:Hemolyzed; result ma y be falsely elevated. Chloride 100 97 - 110 mmol/L [facility] CO2 29 22 - 32 mmol/L [facility] Anion gap 8 2 - 15 mmol/L [facility] BUN 15 6 - 25 mg/dL [facility] Creatinine 1.30 0.80 - 1.30 mg/dL [facility] Glucose 115 70 - 199 mg/dL [facility] Comment: Interpretive Data Fasting glucose >/= 126 [...] 2022. Calcium 9.3 8.5 - 10.3 mg/dL [facility] Bilirubin, total 0.9 0.1 - 1.2 mg/dL [facility] Protein, pl 7.9 6.5 - 8.5 g/dL [facility] Albumin 4.4 3.5 - 5.0 g/dL [facility] Alk phos 114 40 - 130 Units/L [facility] ALT 27 7 - 55 Units/L [facility] AST 26 10 - 50 Units/L [facility] Comment:Hemolyzed; result ma y be falsely elevated. Blood 11/05/2023 10:2 7 AM CDT 11/05/2023 10:39 AM CDT us Nikolay Boucher MD LAB BLOOD ORDERABLES Final Result [facility] [address] [facility]. [place] [address] * (ABNORMAL) CBC with auto differential (11/05/2023 10:27 AM CDT) WBC 10.1(H) 3.8 - 9.9 K/cumm Hgb 16.7 13.0 - 17.5 g/dL [facility] Hct 52.6(H) 38.9 - 50.3 % [facility] Plt 213 150 - 400 K/cumm [facility] MPV 9.8 9.1 - 12.3 fL [facility] RBC 5.59 4.30 - 5.80 M/cumm [facility] MCV 94.1 81.3 - 96.4 fL [facility] MCH 29.9 27.1 - 33.3 pg [facility] MCHC 31.7(L) 32.3 - 35.7 g/dL [facility] RDW CV 15.0(H) 11.1 - 14.9 % [facility] RDW SD 51.4(H) 35.7 - 48.1 fL [facility] NRBC abs 0.00 0.00 - 0.01 K/cumm [facility] Blood 11/05/2023 10:2 7 AM CDT 11/05/2023 10:37 AM CDT Nikolay Boucher MD LAB BLOOD ORDERABLES Final Result Performing Organization Address City/State/[facility] Co de Phone Number [facility]DA [facility] [address] [facility]. [place] [address] documented in this encounter Visit Diagnoses Diagnosis High risk medications (not anticoagulants) long-term use- Primary Encounter for long-term (current) use of other medications Crohn's disease of small and large intestines with complication (HCC) Healthcare maintenance Crohn's disease of both small and large intestine with intestinal obstruction (HCC) documented in this encounter Care Teams Ac/Dc Rewinder Relationship Specialty Start Date End Date Tip Armenta MD [address] [address] PCP - General Family Medicine 03/18/19 Eleanor Ramon MD [address] [place] [address] Medical Oncologist/Government Services Professional Hematology 07/12/20 documented as of this encounter
--- OUTSIDE RECORDS SUMMARY | 2024-05-18 22:13 | XMS_ITS | Encounter Summary ---
Author Organization [facility] Address [address] [place] [address] Phone Care Team Providers Care Continuous Wave Operator Name Role Phone Tip Armenta MD Primary Care Provider [phone] Eleanor Ramon MD Unavailable Reason for Referral * Diagnostic Imaging (Routine) - Closed Specialty Diagnoses / Procedures Referred By Contac t Referred To Contact Diagnoses Status post cervical disc replacement Procedures XR Spine Cervical Complete 4 or 5 Views Michael Viveros PA [address] [place] [address] Phone: tel: fax: [address] [address] Referral ID Status Reason Start Date Expiration Date Visits Re quested Visits Authorized [id number] Closed 02/15/2022 03/17/2023 1 1 Encounter Details Date Type Department Care Team (Late st Contact Info) Description 02/15/2022 Orders Only [facility] Neurosurgery [address] [facility] Medical Office Building [address] [place] [address] Michael Viveros PA [address] [place] [address] Status post cervical disc replacement (Primary Dx) Social History Tobacco Use Types Packs/Day Years Used Date Smoking Tobacco: Never Smokeless Tobacco: Never AUDIT-C Answer Date Recorded Q1: How often do you have a drink containing alc ohol? Monthly or less 10/19/2021 Q2: How many drinks containi ng alcohol do you have on a typical day when you are drinking? 1 or 2 10/19/2021 Q3: How often do you have si x or more drinks on one occasion? 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 Gender Identity Not on file Sexual Orientation Not on file documented as of this encounter Plan of Treatment Upcoming Encounters Date Type Department Care Team (Late st Contact Info) Description 05/22/2024 10:45 AM PLATE PAINTER APPRENTICE Hospital Encounter [facility] Endoscopy [address] [place] [address] Nikolay Boucher MD [address] [address] 05/22/2024 10:45 AM PLATE PAINTER APPRENTICE - 05/22/2024 11:15 AM PLATE PAINTER APPRENTICE Surgery [facility] Endoscopy [address] [address] Nikolay Boucher MD [address] [place] [address] EGD Scheduled Procedures Name Priority Associated Diagnoses Date/Ti me ESOPHAGOGASTRODUODENOSCOPY Crohn's disease of both small and large intestine with intestinal obstruction (HCC) 05/22/2024 10:45 AM PLATE PAINTER APPRENTICE documented as of this encounter Results * XR Spine Cervical Complete 4 or 5 Views (02/21/2022 10:20 AM CDT) Anatomical Region Laterality Modality Spine N/A Computed Radiogr aphy 02/21/2022 12:0 4 PM CDT Impressions 02/21/2022 12:41 PM CDT 1. ??Unchanged cervical disc arthroplasty at C6-C7. Dictated by: Kaylee Pope M.D. The radiology attending physician has personally reviewed this study, and had reviewed and/or edited this written report and agrees with it. Electronically signed by: Ekaterina Goldstein MD [facility] 02/21/2022 12:41 PM CDT EXAMINATION: XR SPINE CERVICAL COMPLETE 4 OR 5 VW HISTORY: 56-year-old male with history of disc herniation and subsequent anterior cervical discectomy and disc arthroplasty at C6-C7. FINDINGS: 4 images of the cervical spine are submitted and compared to radiographs dated 10/19/2021 There is mild straightening of the cervical spine with loss of cervical lordosis. ??Findings of disc arthroplasty at C6-C7 are unchanged. ??There are unchanged mild findings of degenerative disc disease at C5-C6. ??There is no listhesis of the cervical spine on flexion or extension. ??There is no acute fracture of the cervical spine. ??There is no prevertebral soft tissue swelling. Procedure Note Kristel Goldstein MD - 02/21/2022 EXAMINATION: XR SPINE CERVICAL COMPLETE 4 OR 5 VW HISTORY: 56-year-old male with history of disc herniation and subsequent anterior cervical discectomy and disc arthroplasty at C6-C7. FINDINGS: 4 images of the cervical spine are submitted and compared to radiographs dated 10/19/2021 There is mild straightening of the cervical spine with loss of cervical lordosis. Findings of disc arthroplasty at C6-C7 are unchanged. There are unchanged mild findings of degenerative disc disease at C5-C6. There is no listhesis of the cervical spine on flexion or extension. There is no acute fracture of the cervical spine. There is no prevertebral soft tissue swelling. IMPRESSION: 1. Unchanged cervical disc arthroplasty at C6-C7. Dictated by: Kaylee Pope M.D. The radiology attending physician has personally reviewed this study, and had reviewed and/or edited this written report and agrees with it. Electronically signed by: Ekaterina Goldstein MD us Michael Rosalino Viveros PA IMG XR PROCEDURES Final R esult documented in this encounter Visit Diagnoses Diagnosis Status post cervical disc replacement- Primary Status post cervical disc replacement Crohn's disease of both small and large intestine with intestinal obstruction (HCC) documented in this encounter Care Teams Continuous Wave Operator Relationship Specialty Start Date End Date Tip Armenta MD [address] [address] PCP - General Family Medicine 03/18/19 Eleanor Ramon MD [address] [facility] [address] [place] [address] Medical Oncologist/Product Inspection Supervisor Hematology 07/12/20 documented as of this encounter
--- OUTSIDE RECORDS SUMMARY | 2024-05-18 22:13 | XMS_ITS | Encounter Summary ---
Author Organization [facility] Address [address] [place] [address] Phone Care Team Providers Care Soup Person Name Role Phone Tip Armenta MD Primary Care Provider [phone] Eleanor Ramon MD Unavailable [phone] Encounter Details Date Type Department Care Team (Late st Contact Info) Description 02/21/2022 10:30 AM CDT Office Visit [facility] Neurosurgery [address] [facility] [address] [place] [address] Michael Vievros PA [address] [place] [address] Annular tear of lumbar disc (Primary Dx); Status post cervical disc replacement Social History Tobacco Use Types Packs/Day Years Used Date Smoking Tobacco: Never Smokeless Tobacco: Never Tobacco Cessation:Counseling Given: No AUDIT-C Answer Date Recorded Q1: How often do you have a drink containing alc ohol? Never 02/21/2022 Q2: How many drinks containi ng alcohol do you have on a typical day when you are drinking? 1 or 2 02/21/2022 Q3: How often do you have six or more drinks on one occasion? Never 02/21/2022 Sex and Gender Information Value Date Recorded Sex Assigned at Not on file Legal Sex Male 1:20 AM COMFORT FILLER Gender Identity Not on file Sexual Orientation Not on file documented as of this encounter Last Filed Vital Signs Vital Sign Reading Time Taken Comments Blood Pressure 140/87 02/21/2022 10:44 AM CDT Pulse 75 02/21/2022 10:44 AM CDT Temperature - - Respiratory Rate - - Oxygen Saturation - - Inhaled Oxygen Concentration - - Weight 99.3 kg (219 lb) 02/21/2022 10:44 AM CDT Height 185.4 cm (6' 1 ) 02/21/2022 10:44 AM CDT Body Mass Index 28.89 02/21/2022 10:44 AM CDT documented in this encounter Progress Notes * Michael Viveros PA - 02/21/2022 10:30 AM CDT RETURN VISIT Subjective HISTORY OF PRESENT ILLNESS 56-year-old male returns to clinic status post a C6-7 disc arthroplasty in January of [address] Concepcion. The patient does admit to some intermittent lower back stiffness that comes and goes in severity as again his main complaint when he 1st came to see us was lower back pain. His imaging studies are notable for flat back deformity with an annular tear at L5-S1 without any other significant areas of stenosis or foraminal narrowing. The patient does admit to some intermittent lower back pain that comes and goes worsens with activity. Overall he is back to most of his daily activities and independence. His active without difficulty. He denies any neck pain complaints, numbness in his hands or issues with dexterity. VITAL SIGNS BP 140/87 Pulse 75 Ht 185.4 cm (6' 1 ) Wt 99.3 kg (219 lb) BMI 28.89 kg/m?? ALLERGIES He is allergic to latex. MEDICATIONS Current Outpatient Medications: acetaminophen-codeine (TYLENOL with CODEINE #3) 300-30 mg per tablet, TAKE 1 TABLET BY MOUTH EVERY 4 HOURS NEEDED FOR PAIN, Disp: , Rfl: adalimumab (Humira,CF, Pen) 40 mg/0.4 mL pen injector kit, Inject 0.4 mL (40 mg total) under the skin every 14 (fourteen) days Safety labs required every 3 months for med refills, next labs due 04/2022. Please contact the office to schedule a follow up appointment, required for continued med refills., Disp: 2 each, Rfl: 2 ALPRAZolam (XANAX) 1 mg tablet, TK 1/2 TO 1 T PO BID PRF ANXIETY, Disp: , Rfl: 5 amitriptyline (ELAVIL) 10 mg tablet, Take 10 mg by mouth nightly, Disp: , Rfl: amLODIPine (NORVASC) 5 mg tablet, Take 5 mg by mouth every morning, Disp: , Rfl: BD SAFETYGLIDE SYRINGE 3 mL 23 x 1 syringe, U UTD, Disp: , Rfl: 5 CIALIS 20 mg tablet, TK 1 T PO QD PRN, Disp: , Rfl: 5 cyanocobalamin (Vitamin B-12) 1,000 mcg/mL injection, INJECT 1 ML Q 2 WEEKS UTD, Disp: , Rfl: 4 diphenoxylate-atropine (LOMOTIL) 2.5-0.025 mg per tablet, Take 1 tablet by mouth 3 (three) times a day as needed , Disp: , Rfl: 5 folic acid (FOLVITE) 1 mg tablet, Take 1 mg by mouth every morning , Disp: , Rfl: 3 hydroCHLOROthiazide (HYDRODIURIL) 25 mg tablet, Take 25 mg by mouth as needed , Disp: , Rfl: hyoscyamine (LEVSIN) 0.125 mg tablet, TAKE 1 TABLET(0.125 MG) BY MOUTH EVERY 6 HOURS NEEDED FOR CRAMPING OR DIARRHEA/ SPASMS, Disp: 120 tablet, Rfl: 2 irbesartan (AVAPRO) 300 mg tablet, Take 300 mg by mouth every morning, Disp: , Rfl: lansoprazole (PREVACID) 15 mg capsule, Take 15 mg by mouth 2 (two) times a day , Disp: , Rfl: magnesium oxide,aspartate,citr 400 mg magnesium capsule, Take 1 capsule by mouth as needed , Disp: , Rfl: montelukast (SINGULAIR) 10 mg tablet, Take 10 mg by mouth as needed , Disp: , Rfl: 1 ondansetron (ZOFRAN) 8 mg tablet, Take 8 mg by mouth as needed, Disp: , Rfl: 5 testosterone cypionate (DEPO-TESTOTERONE) 200 mg/mL injection, INJ 1 ML IM Q WK, Disp: , Rfl: 5 zolpidem (AMBIEN) 10 mg tablet, Take 10 mg by mouth nightly as needed , Disp: , Rfl: 5 HYDROcodone-acetaminophen (NORCO) 7.5-325 mg per tablet, Take 1 tablet by mouth every 6 (six) hoursas needed for pain (Patient not taking: Reported on 02/21/2022), Disp: , Rfl: Objective PHYSICAL EXAM Well-developed male in no acute distress Cranial nerves 2-12 grossly intact Bilateral upper extremity strength grossly 5/5, full and symmetric throughout including bilateral deltoids, biceps, triceps, wrist extension, wrist flexion. Hand logging shovel operator is 5/5. Negative Chavez's. His balance appears to be within normal limits without any significant limitation and unassisted. REVIEW OF IMAGING EXAMINATION: XR SPINE CERVICAL COMPLETE 4 OR 5 VW HISTORY: 56-year-old male with history of disc herniation and subsequent anterior cervical discectomy and disc arthroplasty at C6-C7 FINDINGS: 4 images of the cervical spine [...] is no prevertebral soft tissue swelling. IMPRESSION: Unchanged cervical disc arthroplasty at C6-C7. Assessment/Plan Status post C6-7 disc replacement, January 2021 Dr. Concepcion Flat back syndrome Foraminal stenosis L5-S1 History of cervical myelopathy PLAN Pleasant 56-year-old male returns to clinic to review his repeat x-rays, 1 year status post a C6-7 disc replacement. He is doing well without any significant pain complaints, persistent subjective myelopathy. His main complaint prior to the operation included balance disturbance for which has significantly improved post surgical. In addition, he is noted to have a flat back deformity with some intermittent lower back pain complaints that has not worsened. He remains independent and is active. Given that he is doing well without any significant pain complaints and now a year status post disc replacement, we suggested as needed approach forward. He has no restrictions moving forward. Patient was encouraged to ask questions today. He is always welcome to return to clinic if there is any issues or questions. Michael Viveros PA-C documented in this encounter Plan of Treatment Upcoming Encounters Date Type Department Care Team (Late st Contact Info) Description 05/22/2024 10:45 AM COMFORT FILLER Hospital Encounter [facility] Endoscopy [address], [place] [address] Nikolay Boucher MD [address] [place] [address] 05/22/2024 10:45 AM COMFORT FILLER - 05/22/2024 11:15 AM COMFORT FILLER Surgery [facility] Endoscopy [address] [place] [address] Nikolay Boucher MD [address] [place] [address] EGD Scheduled Procedures Name Priority Associated Diagnoses Date/Ti me ESOPHAGOGASTRODUODENOSCOPY Crohn's disease of both small and large intestine with intestinal obstruction (HCC) 05/22/2024 10:45 AM COMFORT FILLER documented as of this encounter Visit Diagnoses Diagnosis Annular tear of lumbar disc- Primary Status post cervical disc replacement Crohn's disease of both small and large intestine with intestinal obstruction (HCC) documented in this encounter Care Teams Soup Person Relationship Specialty Start Date End Date Tip Armenta MD [address] [address] PCP - General Family Medicine 03/18/19 Eleanor Ramon MD [address] [place], [place] [id number] Medical Oncologist/Gastrointestinal Technician Hematology 07/12/20 documented as of this encounter
--- OUTSIDE RECORDS SUMMARY | 2024-05-18 22:13 | XMS_ITS | Encounter Summary ---
Author Organization [facility] Address [address] [place] [address] Phone Care Team Providers Care Bisque Grader Name Role Phone Tip Armenta MD Primary Care Provider [phone] Eleanor Ramon MD Unavailable [phone] Reason for Visit * Reason Onset Date Comments PA for Humira 08/01/2022 PA Approved 08/01/2022 Encounter Details Date Type Department Care Team (Late st Contact Info) Description 08/01/2022 Documentation [facility] Gastroenterology Replaced by [facility] 12th [place] [address] [place] [address] Sofia Talamantes for Humira; PA Approved Social History Tobacco Use Types [...] file Legal Sex Male 1:20 AM SUPERVISOR FURNACE PROCESS Gender Identity Not on file Sexual Orientation Not on file documented as of this encounter Progress Notes * Sofia Talamantes - 08/01/2022 12:03 PM CST 08/07/22 - PA approved through [employer] [facility] #[id number] starting 08/03/2022 through 08/04/2023 (2 per 28 days) PA faxed to [employer] for [place] (2 per 28 days) RVISOR FURNACE PROCESS documented in this encounter Plan of Treatment Upcoming Encounters Date Type Department Care Team (Late st Contact Info) Description 05/22/2024 10:45 AM SUPERVISOR FURNACE PROCESS Hospital Encounter [facility] Endoscopy [address] [address] Nikolay Boucher MD [address] [place] [address] 05/22/2024 10:45 AM SUPERVISOR FURNACE PROCESS - 05/22/2024 11:15 AM SUPERVISOR FURNACE PROCESS Surgery [facility] Endoscopy [address] [id number] Nikolay Boucher MD [address] [place] [address] EGD Scheduled Procedures Name Priority Associated Diagnoses Date/Ti ak ESOPHAGOGASTRODUODENOSCOPY Crohn's disease of both small and large intestine with intestinal obstruction (HCC) 05/22/2024 10:45 AM SUPERVISOR FURNACE PROCESS documented as of this encounter Visit Diagnoses Not on filedocumented in this encounter Care Teams Bisque Grader Relationship Specialty Start Date End Date Tip Armenta MD [address] [address] PCP - General Family Medicine 03/18/19 Eleanor Ramon MD [address] [place], [place] [address] Medical Oncologist/Senior Solutions Consultant Hematology 07/12/20 documented as of this encounter
--- OUTSIDE RECORDS SUMMARY | 2024-05-18 22:13 | XMS_ITS | Encounter Summary ---
Author Organization [facility] Address [address] [place] [address] Phone Care Team Providers Care Penciller Name Role Phone Tip Armenta MD Primary Care Provider [phone] Eleanor Ramon MD Unavailable [phone] Encounter Details Date Type Department Care Team (Late st Contact Info) Description 07/20/2022 Documentation [facility] Neurosurgery [address] [facility] [address] [place] [address] Michael Viveros PA [address] [place] [address] Social History Tobacco Use Types [...] on file Legal Sex Male 1:20 AM PRIMARY MILL ROLLER Gender Identity Not on file Sexual Orientation Not on file documented as of this encounter Progress Notes * Michael Viveros PA - 07/20/2022 4:11 PM CST The patient called with some complaints of worsening lower back pain. This is typically noticeable when active. He does admit to pressure across his lower back and seems to be worse on the left lowerlumbar region. The patient does have moderate degenerative disc disease of L5-S1 and facet hypertrophy of this segment. With that said, I would expect him to have some intermittent discomfort of lower back pain that would come and go in severity. The patient is requesting to start some organized physical therapy on his own to strengthen his core and back muscles. He also may improve with some traction, stretching and topical options. If he calls, he is welcome to obtain a therapy order for us as again he plans to do this on his own. Further, he may benefit with a pain management referral, specifically facet blocks versus epidural injections at L5-S1. I did recommend a return to clinic to repeat x-rays if his symptoms improve with the conservative treatment as discussed. I would recommendeval[facility] by [facility] pain management to consider injections if his symptoms do not improve. The patient will call us on how he progresses. ARY MILL ROLLER documented in this encounter Plan of Treatment Upcoming Encounters Date Type Department Care Team (Late st Contact Info) Description 05/22/2024 10:45 AM PRIMARY MILL ROLLER Hospital Encounter [facility] Endoscopy [address] [place] [address] Nikolay Boucher MD [address] [place] [address] 05/22/2024 10:45 AM PRIMARY MILL ROLLER - 05/22/2024 11:15 AM PRIMARY MILL ROLLER Surgery [facility] Endoscopy [address] [place] [address] Nikolay Boucher MD [address] [place] [address] EGD Scheduled Procedures Name Priority Associated Diagnoses Date/Ti me ESOPHAGOGASTRODUODENOSCOPY Crohn's disease of both small and large intestine with intestinal obstruction (HCC) 05/22/2024 10:45 AM PRIMARY MILL ROLLER documented as of this encounter Visit Diagnoses Not on filedocumented in this encounter Care Teams Penciller Relationship Specialty Start Date End Date Tip Armenta MD [address] [address] PCP - General Family Medicine 03/18/19 Eleanor Ramon MD [address] [facility] [address] [place] [address] Medical Oncologist/Truck Sales Manager Hematology 07/12/20 documented as of this encounter
--- OUTSIDE RECORDS SUMMARY | 2024-05-18 22:13 | XMS_ITS | Encounter Summary ---
Author Organization [facility] Address [address] [place] [address] Phone Care Team Providers Care Tire Repairer Name Role Phone Tip Armenta MD Primary Care Provider [phone] Eleanor Ramon MD Unavailable [phone] Encounter Details Date Type Department Care Team (Late st Contact Info) Description 03/07/2022 Orders Only [facility] Hematology [address] [facility] [address] 7th [place] [address] [place] [address] Tamiko Chávez, GUEVARA Iron deficiency [...] on file Legal Sex Male 1:20 AM MAINTENANCE TEAM LEADER Gender Identity Not on file Sexual Orientation Not on file documented as of this encounter Plan of Treatment Upcoming Encounters Date Type Department Care Team (Late st Contact Info) Description 05/22/2024 10:45 AM MAINTENANCE TEAM LEADER Hospital Encounter [facility] Endoscopy [address], [place] [address] Nikolay Boucher MD [address] [place] [address] 05/22/2024 10:45 AM MAINTENANCE TEAM LEADER - 05/22/2024 11:15 AM MAINTENANCE TEAM LEADER Surgery [facility] Endoscopy [address] [place] [address] Nikolay Boucher MD [address] [place] [address] EGD Scheduled Procedures Name Priority Associated Diagnoses Date/Ti me ESOPHAGOGASTRODUODENOSCOPY Crohn's disease of both small and large intestine with intestinal obstruction (HCC) 05/22/2024 10:45 AM MAINTENANCE TEAM LEADER documented as of this encounter Visit Diagnoses Diagnosis Iron deficiency anemia, unspecified iron deficiency anemia type- Primary Crohn's disease of both small and large intestine with intestinal obstruction (HCC) documented in this encounter Orders Appointment Requests Count Last Ordered Date Fi rst Ordered Date ONCBCN INFUSION APPT REQUEST 1 03/14/2022 documented in this encounter Care Teams Tire Repairer Relationship Specialty Start Date End Date Tip Aremnta MD [address] [address] PCP - General Family Medicine 03/18/19 Eleanor Ramon MD [address] [place] [address] Medical Oncologist/Instrument Maker Hematology 07/12/20 documented as of this encounter
--- OUTSIDE RECORDS SUMMARY | 2024-05-18 22:13 | XMS_ITS | Encounter Summary ---
Author Organization [facility] Address [address] [place] [address] Phone Care Team Providers Care Learning Technologies Specialist Name Role Phone Tip Armenta MD Primary Care Provider [phone] Eleanor Ramon MD Unavailable [phone] Encounter Details Date Type Department Care Team (Late st Contact Info) Description 03/08/2022 Orders Only [facility] Hematology [address] [facility] [address] 7th [place] [address] [place] [address] Tamiko Chávez, GUEVARA Iron deficiency [...] on file Legal Sex Male 1:20 AM REFUELER Gender Identity Not on file Sexual Orientation Not on file documented as of this encounter Plan of Treatment Upcoming Encounters Date Type Department Care Team (Late st Contact Info) Description 05/22/2024 10:45 AM REFUELER Hospital Encounter [facility] Endoscopy [address] [address], [place] [address] Nikolay Boucher MD [address] [place] [address] 05/22/2024 10:45 AM REFUELER - 05/22/2024 11:15 AM REFUELER Surgery [facility] Endoscopy [address] [place] [address] Nikolay Boucher MD [address] [place] [address] EGD Scheduled Procedures Name Priority Associated Diagnoses Date/Ti me ESOPHAGOGASTRODUODENOSCOPY Crohn's disease of both small and large intestine with intestinal obstruction (HCC) 05/22/2024 10:45 AM REFUELER documented as of this encounter Visit Diagnoses Diagnosis Iron deficiency anemia, unspecified iron deficiency anemia type- Primary Crohn's disease of both small and large intestine with intestinal obstruction (HCC) documented in this encounter Orders Appointment Requests Count Last Ordered Date Fi rst Ordered Date ONCBCN INFUSION APPT REQUEST 1 03/28/2022 documented in this encounter Care Teams Learning Technologies Specialist Relationship Specialty Start Date End Date Tip Armenta MD [address] [address] PCP - General Family Medicine 03/18/19 Eleanor Ramon MD [address] [place] [address] Medical Oncologist/Finisher Tailor Apprentice Hematology 07/12/20 documented as of this encounter
--- OUTSIDE RECORDS SUMMARY | 2024-05-18 22:13 | XMS_ITS | Encounter Summary ---
Author Organization [facility] Address [address] [place] [address] Phone Care Team Providers Care Vp Of Technology Name Role Phone Tip Armenta MD Primary Care Provider [phone] Eleanor Ramon MD Unavailable [phone] Reason for Visit * Reason Onset Date Comments Schedule Colon 08/21/2022 Encounter Details Date Type Department Care Team (Late st Contact Info) Description 08/21/2022 Documentation [facility] Gastroenterology [facility] 12th [place] [address] [place] [address] Sofia Talamantes Schedule Colon Social History Tobacco Use Types Packs/Day Years [...] on file Legal Sex Male 1:20 AM CERTIFIED DIABETES EDUCATOR Gender Identity Not on file Sexual Orientation Not on file documented as of this encounter Progress Notes * Sofia Talamantes - 08/21/2022 8:56 AM CDT LMOM to schedule Colon, dates given documented in this encounter Plan of Treatment Upcoming Encounters Date Type Department Care Team (Late st Contact Info) Description 05/22/2024 10:45 AM CERTIFIED DIABETES EDUCATOR Hospital Encounter [facility] Endoscopy [address] [place] [address] Nikolay Boucher MD [address] [place] [address] 05/22/2024 10:45 AM CERTIFIED DIABETES EDUCATOR - 05/22/2024 11:15 AM CERTIFIED DIABETES EDUCATOR Surgery [facility] Endoscopy [address] [place] [address] Nikolay Boucher MD [address] [place] [address] EGD Scheduled Procedures Name Priority Associated Diagnoses Date/Ti me ESOPHAGOGASTRODUODENOSCOPY Crohn's disease of both small and large intestine with intestinal obstruction (HCC) 05/22/2024 10:45 AM CERTIFIED DIABETES EDUCATOR documented as of this encounter Visit Diagnoses Not on filedocumented in this encounter Care Teams Vp Of Technology Relationship Specialty Start Date End Date Tip Armenta MD [address] [address] PCP - General Family Medicine 03/18/19 Eleanor Ramon MD [address] [place], [place] [address] Medical Oncologist/Maxillofacial Pathology Hematology 07/12/20 documented as of this encounter
--- OUTSIDE RECORDS SUMMARY | 2024-05-18 22:13 | XMS_ITS | Encounter Summary ---
Author Organization [facility] Address [address] [place] [address] Phone Care Team Providers Care Tar Pot Worker Name Role Phone Tip Armenta MD Primary Care Provider [phone] Eleanor Ramon MD Unavailable [phone] Encounter Details Date Type Department Care Team (Late st Contact Info) Description 07/09/2022 1:30 PM PRINTED CIRCUIT BOARD DESIGNER Office Visit [facility] Hematology [address] [facility] Medical Office Building 2 [address] [place] [address] Cristal Longoria NP [address] [place] [address] Iron deficiency anemia, unspecified iron deficiency anemia type; B12 deficiency Social History Tobacco Use Types Packs/Day Years [...] Legal Sex Male 1:20 AM PRINTED CIRCUIT BOARD DESIGNER Gender Identity Not on file Sexual Orientation Not on file documented as of this encounter Last Filed Vital Signs Vital Sign Reading Time Taken Comments Blood Pressure 102/68 07/09/2022 1:21 PM PRINTED CIRCUIT BOARD DESIGNER Pulse 81 07/09/2022 1:21 PM PRINTED CIRCUIT BOARD DESIGNER Temperature 36.5 ??C (97.7 ??F) 07/09/2022 1:21 PM CS T Respiratory Rate - - Oxygen Saturation 96% 07/09/2022 1:21 PM PRINTED CIRCUIT BOARD DESIGNER Inhaled Oxygen Concentration - - Weight 102.1 kg (225 lb) 07/09/2022 1:21 PM PRINTED CIRCUIT BOARD DESIGNER Height 185.4 cm (6' 1 ) 07/09/2022 1:21 PM PRINTED CIRCUIT BOARD DESIGNER Body Mass Index 29.69 07/09/2022 1:21 PM PRINTED CIRCUIT BOARD DESIGNER documented in this encounter Progress Notes * Cristal Longoria, JODIE - 07/09/2022 1:30 PM CST PATIENT NAME: Mello Herbert : 1965 DATE OF SERVICE: 07/09/2022 Diagnosis: Iron deficiency anemia HPI: Mr. Herbert is a 57 year old male with a medical history significant for Crohn's disease s/p multiple resections on Humira, low testosterone on testosterone supplementation with resulting erythrocytosis, as well as iron deficiency anemia, who presents for follow up. He has tried oral iron in the past, but was unable to tolerate this, thus he has received intermittent IV iron. He states that he feels better with IV iron. He continues with B12 every 2 weeks. He has a mild neutrophilia-hasn't smoked and is not on steroids. He follows with Dr. Valenzuela for his Crohn's disease. His last Injectafer was 03/14/22 and 03/28/22. ALLERGIES: Allergies Allergen Reactions Latex Rash CURRENT MEDICATION: Current Outpatient Medications: acetaminophen-codeine (TYLENOL with CODEINE #3) 300-30 mg per tablet, TAKE 1 TABLET BY MOUTH EVERY 4 HOURS NEEDED FOR PAIN, Disp: , Rfl: adalimumab (Humira,CF, Pen) 40 mg/0.4 mL pen injector kit, Inject 0.4 mL (40 mg total) under the skin every 14 (fourteen) days Safety labs required every 3 months for med refills, next labs due DEACON (05/2022) for further refills to be authorized. Follow up appointment must also be scheduled for refills., Disp: 2 each, Rfl: 0 ALPRAZolam (XANAX) 1 mg tablet, [...] as needed , Disp: , Rfl: 5 gabapentin (NEURONTIN) 300 mg capsule, Take 1 capsule (300 mg total) by mouth 3 (three) times a day, Disp: 270 capsule, Rfl: 0 HYDROcodone-acetaminophen (NORCO) 7.5-325 mg per tablet, Take 1 tablet by mouth every 6 (six) hoursas needed for pain (Patient not taking: Reported on 02/21/2022), Disp: , Rfl: HISTORY Social History Tobacco Use Smoking status: Never Smokeless tobacco: Never Substance and Sexual Activity Drug use: Never Sexual activity: Defer Alcohol Use: Not At Risk Frequency of Alcohol Consumption: Never Average Number of Drinks: 1 or 2 Frequency of Binge Drinking: Never VITALS: Vitals BP 102/68 (BP Location: Right arm, Patient Position: Sitting) Pulse 81 Temp 36.5 ??C (97.7 ??F) Ht 185.4 cm (6' 1 ) Wt 102.1 kg (225 lb) SpO2 96% BMI 29.69 kg/m?? PHYSICAL EXAM: Physical Exam Vitals reviewed. Constitutional: Appearance: Normal appearance. HENT: Head: Normocephalic and atraumatic. Mouth/Throat: Mouth: Mucous membranes are moist. Pharynx: Oropharynx is clear. Eyes: Conjunctiva/sclera: Conjunctivae normal. Pupils: Pupils are equal, round, and reactive to light. Cardiovascular: Rate and Rhythm: Normal rate and regular rhythm. Heart sounds: Normal heart sounds. Pulmonary: Effort: Pulmonary effort is normal. Breath sounds: Normal breath sounds. Abdominal: General: Bowel sounds are normal. Palpations: Abdomen is soft. Musculoskeletal: General: Normal range of motion. Cervical back: Normal range of motion and neck supple. Skin: General: Skin is warm. Neurological: General: No focal deficit present. Mental Status: He is alert and oriented to person, place, and time. Psychiatric: Mood and Affect: Mood normal. Behavior: Behavior normal. LABORATORY DATA: Lab on 07/09/2022 Component Date Value Ref Range Status Retics, absolute 07/09/2022 0.115 (H) 0.020 - 0.087 M/cumm Final Retics 07/09/2022 2.3 0.4 - 2.9 % Final Reticulocyte Hgb 07/09/2022 33.7 30.5 - 38.0 pg Final WBC 07/09/2022 11.1 (H) 3.8 - 9.9 K/cumm Final Hgb 07/09/2022 15.3 13.0 - 17.5 g/dL Final Hct 07/09/2022 46.3 38.9 - 50.3 % Final Plt 07/09/2022 204 150 - 400 K/cumm Final MPV 07/09/2022 8.9 (L) 9.1 - 12.3 fL Final RBC 07/09/2022 5.04 4.30 - 5.80 M/cumm Final MCV 07/09/2022 92 81 - 96 fL Final MCH 07/09/2022 30.4 27.1 - 33.3 pg Final MCHC 07/09/2022 33.0 32.3 - 35.7 g/dL Final RDW CV 07/09/2022 13.8 11.1 - 14.9 % Final RDW SD 07/09/2022 46.5 35.7 - 48.1 fL Final Neutrophil abs 07/09/2022 7.6 (H) 1.7 - 6.5 K/cumm Final Imm gran abs 07/09/2022 0.0 0.0 - 0.1 K/cumm Final Lymphocyte abs 07/09/2022 1.8 0.8 - 3.3 K/cumm Final Monocyte abs 07/09/2022 1.3 (H) 0.2 - 0.8 K/cumm Final Eosinophil abs 07/09/2022 0.3 0.0 - 0.5 K/cumm Final Basophil abs 07/09/2022 0.0 0.0 - 0.1 K/cumm Final Neutrophil pct 07/09/2022 68.5 % Final Imm gran pct 07/09/2022 0.4 % Final Lymphocyte pct 07/09/2022 16.4 % Final Monocyte pct 07/09/2022 11.6 % Final Eosinophil pct 07/09/2022 2.7 % Final Basophil pct 07/09/2022 0.4 % Final ASSESSMENT AND PLAN: Patient Active Problem List Diagnosis Iron deficiency [...] right prepatellar bursa History of Crohn's disease 1. Iron deficiency anemia. Mr. Herbert presents for follow up of iron deficiency anemia with his most recent iron infusions in March 2022. He does continue testosterone injections. He has a good hemoglobin today and an improvement in his ferritin from 8 to 132. He has a slightly low transferrin saturation however given his good hemoglobin we will defer IV iron at this point. We will continue to reevaluate for continued iron needs. 2. Vitamin B12 deficiency. Mr. Herbert has had evidence of vitamin B12 deficiency and receives twice monthly B12 through another provider. His B12 level is good today. DISPOSITION: The patient will return follow up in one year as he is otherwise followed closely by GI. If he has recurrent iron needs prior to this, we will order infusion. I asked him to call with evidence of recurrent iron deficiency. They know to contact our office with any questions or concerns prior to the next follow up appointment. Cristal Longoria NP TED CIRCUIT BOARD DESIGNER documented in this encounter Plan of Treatment Upcoming Encounters Date Type Department Care Team (Late st Contact Info) Description 05/22/2024 10:45 AM PRINTED CIRCUIT BOARD DESIGNER Hospital Encounter [facility] Endoscopy [id number] [place] [address] Nikolay Boucher MD [facility] [address] [facility] [address] [place] [address] 05/22/2024 10:45 AM PRINTED CIRCUIT BOARD DESIGNER - 05/22/2024 11:15 AM PRINTED CIRCUIT BOARD DESIGNER Surgery [facility] Endoscopy [address] [place] [address] Nikolay Boucher MD [address] [place] [address] EGD Scheduled Procedures Name Priority Associated Diagnoses Date/Ti me ESOPHAGOGASTRODUODENOSCOPY Crohn's disease of both small and large intestine with intestinal obstruction (HCC) 05/22/2024 10:45 AM PRINTED CIRCUIT BOARD DESIGNER documented as of this encounter Visit Diagnoses Diagnosis Iron deficiency anemia, unspecified iron deficiency anemia type B12 deficiency Crohn's disease of both small and large intestine with intestinal obstruction (HCC) documented in this encounter Orders Appointment Requests Count Last Ordered Date Fi rst Ordered Date ONCBCN CLINIC APPOINTMENT REQUEST 1 023 documented in this encounter Care Teams Tar Pot Worker Relationship Specialty Start Date End Date Tip Armenta MD [address] [address] PCP - General Family Medicine 03/18/19 Eleanor Ramon MD [address] [place] [address] Medical Oncologist/Manager Convention Hematology 07/12/20 documented as of this encounter
--- OUTSIDE RECORDS SUMMARY | 2024-05-18 22:13 | XMS_ITS | Encounter Summary ---
Author Organization [facility] Address [address] [place] [address] Phone Care Team Providers Care Bituminous Paving Machine Operator Name Role Phone Tip Armenta MD Primary Care Provider [phone] Eleanor Ramon MD Unavailable [phone] Encounter Details Date Type Department Care Team (Late st Contact Info) Description 09/25/2022 Orders Only [facility] Gastroenterology [address] [facility] Advanced Medicine 12th [place] [address] [place] [address] Sofia Talamantes Crohn's disease of small and large intestines with complication (HCC) (Primary Dx) Social History Tobacco Use Types [...] on file Legal Sex Male 1:20 AM GROUP LEADER Gender Identity Not on file Sexual Orientation Not on file documented as of this encounter Ordered Prescriptions Prescription Sig Dispense Quantity Refills Last Filled Start Date End Date polyethylene glycol (GoLYTELY) 236-22.74-6.74 -5.86 gram solutionIndicatio ns:Crohn's disease of small and large intestines with complication (HCC) Drink 240 ml the day before your Colonoscopy - PLEASE FOLLOW PREP INSTRUCTIONS GIVEN BY DR MCLEAN OFFICE 240 mL 09/25/2022 documented in this encounter Plan of Treatment Upcoming Encounters Date Type Department Care Team (Late st Contact Info) Description 05/22/2024 10:45 AM GROUP LEADER Hospital Encounter Endoscopy [address] [place] [address] Nikolay Boucher MD [address] [place] [address] 05/22/2024 10:45 AM GROUP LEADER - 05/22/2024 11:15 AM GROUP LEADER Surgery Endoscopy [address] [place] [address] Nikolay Boucher MD [address] [place] [address] EGD Scheduled Procedures Name Priority Associated Diagnoses Date/Ti me ESOPHAGOGASTRODUODENOSCOPY Crohn's disease of both small and large intestine with intestinal obstruction (HCC) 05/22/2024 10:45 AM GROUP LEADER documented as of this encounter Visit Diagnoses Diagnosis Crohn's disease of small and large intestines with complication (HCC)- Primary Crohn's disease of both small and large intestine with intestinal obstruction (HCC) documented in this encounter Care Teams Bituminous Paving Machine Operator Relationship Specialty Start Date End Date Tip Armenta MD [address] [address] PCP - General Family Medicine 03/18/19 Eleanor Ramon MD [address] [place] [address] Medical Oncologist/Qm Consultant Hematology 07/12/20 documented as of this encounter
--- OUTSIDE RECORDS SUMMARY | 2024-05-18 22:13 | XMS_ITS | Encounter Summary ---
Author Organization [facility] Address [address] [place] [address] Care Team Providers Care Radio Time Buyer Name Role Phone Tip Armenta MD Primary Care Provider [phone] Eleanor Ramon MD Unavailable [phone] Encounter Details Date Type Department Care Team (Late st Contact Info) Description 07/09/2022 1:15 PM SANITATION WORKER HOSING MACHINERY Lab [facility] Lab [address] [place] [address] Iron deficiency anemia, unspecified iron deficiency anemia [...] on file Legal Sex Male 1:20 AM SANITATION WORKER HOSING MACHINERY Gender Identity Not on file Sexual Orientation Not on file documented as of this encounter Plan of Treatment Upcoming Encounters Date Type Department Care Team (Late Contact Info) Description 05/22/2024 10:45 AM SANITATION WORKER HOSING MACHINERY Hospital Encounter [facility] Endoscopy [address] [place] [address] Nikolay Boucher MD [address] [place] [address] 05/22/2024 10:45 AM SANITATION WORKER HOSING MACHINERY - 05/22/2024 11:15 AM SANITATION WORKER HOSING MACHINERY Surgery [facility] Endoscopy [address] [place] [address] Nikolay Boucher MD [address] [place] [address] EGD Scheduled Procedures Name Priority Associated Diagnoses Date/Ti me ESOPHAGOGASTRODUODENOSCOPY Crohn's disease of both small and large intestine with intestinal obstruction (HCC) 05/22/2024 10:45 AM SANITATION WORKER HOSING MACHINERY documented as of this encounter Procedures Procedure Name Priority Date/Time Associated Diagnosis Comments DIFFERENTIAL AUTO Routine 07/09/2022 1:1 1 PM SANITATION WORKER HOSING MACHINERY Iron deficiency anemia, unspecified iron deficiency anemia type B12 deficiency IRON PROFILE W/ IBC Routine 07/09/2022 1 :11 PM SANITATION WORKER HOSING MACHINERY Iron deficiency anemia, unspecified iron deficiency anemia type B12 deficiency CBC WITH AUTO DIFFERENTIAL Routine 07/09/2022 1:11 PM SANITATION WORKER HOSING MACHINERY Iron deficiency anemia, unspecified iron deficiency anemia type B12 deficiency RETICULOCYTES Routine 07/09/2022 1:11 PM SANITATION WORKER HOSING MACHINERY Iron deficiency anemia, unspecified iron deficiency anemia type B12 deficiency FERRITIN Routine 07/09/2022 1:11 PM SANITATION WORKER HOSING MACHINERY Iron deficiency anemia, unspecified iron deficiency anemia type B12 deficiency VITAMIN B12 Routine 07/09/2022 1:11 PM SANITATION WORKER HOSING MACHINERY Iron deficiency anemia, unspecified iron deficiency anemia type B12 deficiency documented in this encounter Results * (ABNORMAL) Differential, auto (07/09/2022 1:11 PM SANITATION WORKER HOSING MACHINERY) Neutrophil abs 7.6(H) 1.7 - 6.5 K/cumm AMANDA BJWCH Comment:Testing performed by : [address] [place] [address] Imm gran abs 0.0 0.0 - 0.1 K/cumm CERNER BJWCH Comment:Testing performed by : [address] [place] [address] Lymphocyte abs 1.8 0.8 - 3.3 K/cumm CERNER [facility]WCH Comment:Testing performed by : [address] [place] [address] Monocyte abs 1.3(H) 0.2 - 0.8 K/cumm CERNER [facility] Comment:Testing performed by : [address] [place] [address] Eosinophil abs 0.3 0.0 - 0.5 K/cumm CERNER B[facility]WCH Comment:Testing performed by : [address] [place] [address] Basophil abs 0.0 0.0 - 0.1 K/cumm CERNER [facility] Comment:Testing performed by : [address] [place] [address] Neutrophil pct 68.5 % CERNER [facility] Comment: Interpretive Data Percent cell count reference ranges are not reported, since discordance with absolute values may lead to misinterpretation of CBC data. Current Interpretive Data was last revised on 2017. Testing performed by: [address] [place] [address] Imm gran pct 0.4 % CERNER [facility] Comment: Interpretive Data Percent cell count reference ranges are not reported, since discordance with absolute values may lead to misinterpretation of CBC data. Current Interpretive Data was last revised on 2017. Testing performed by: [address] [place] [address] Lymphocyte pct 16.4 % CERNER [facility] Comment: Interpretive Data Percent cell count reference ranges are not reported, since discordance with absolute values may lead to misinterpretation of CBC data. Current Interpretive Data was last revised on 2017. Testing performed by: [address] [address] Monocyte pct 11.6 % CERNER [facility] Comment: Interpretive Data Percent cell count reference ranges are not reported, since discordance with absolute values may lead to misinterpretation of CBC data. Current Interpretive Data was last revised on 2017. Testing performed by: [facility],[place] [address] Eosinophil pct 2.7 % AMANDA HICKEY Comment: Interpretive Data Percent cell count reference ranges are not reported, since discordance with absolute values may lead to misinterpretation of CBC data. Current Interpretive Data was last revised on 2017. Testing performed by: [facility] [place] [address] [address] Basophil pct 0.4 % AMANDA HICKEY Comment: Interpretive Data Percent cell count reference ranges are not reported, since discordance with absolute values may lead to misinterpretation of CBC data. Current Interpretive Data was last revised on 2017. Testing performed by: [facility] [place] [address] Blood 07/09/2022 1:11 PM SANITATION WORKER HOSING MACHINERY 07/09/2022 1:11 PM SANITATION WORKER HOSING MACHINERY Cristal Longoria OPTIC FIBRE DRAWER LAB BLOOD ORDERABLES Final Result [facility] [address] [place] [address] * Ferritin (07/09/2022 1:11 PM SANITATION WORKER HOSING MACHINERY) Ferritin 132 30 - 400 ng/mL AMANDA HICKEY Comment:Testing performed by : [facility], [facility] [facility], [place]., [address] Blood 07/09/2022 1:11 PM SANITATION WORKER HOSING MACHINERY 07/09/2022 4:33 PM SANITATION WORKER HOSING MACHINERY Cristal Longoria OPTIC FIBRE DRAWER LAB BLOOD ORDERABLES Final Result [facility] [address] [facility]. [facility] [place] [address] * (ABNORMAL) CBC with auto differential (07/09/2022 1:11 PM SANITATION WORKER HOSING MACHINERY) WBC 11.1(H) 3.8 - 9.9 K/cumm CERNER [facility] Comment:Testing performed by : [facility], [address], [place] [address] Hgb 15.3 13.0 - 17.5 g/dL CERNER [facility] Comment:Testing performed by : [facility] [address], [place] [address] Hct 46.3 38.9 - 50.3 % CERNER [facility] Comment:Testing [facility] : [facility] [address] [place] [address] Plt 204 150 - 400 K/cumm CERNER [facility] Comment:Testing performed by : [facility] [address], [place] [address] MPV 8.9(L) 9.1 - 12.3 fL CERNER [facility] Comment:Testing performed by : [facility] [place] [address] RBC 5.04 4.30 - 5.80 M/cumm CERNER [facility] Comment:Testing performed by : [facility] [address] [place], [place] [address] MCV 92 81 - 96 fL CERNER [facility] Comment:Testing performed by : [facility] [address], [place] [address] MCH 30.4 27.1 - 33.3 pg CERNER [facility] Comment:Testing performed by : [facility] [address], [place] [address] MCHC 33.0 32.3 - 35.7 g/dL CERNER [facility] Comment:Testing performed by : [facility] [address] [place] [address] RDW CV 13.8 11.1 - 14.9 % CERNER [facility] Comment:Testing performed by : [facility] [address] [place] [address] RDW SD 46.5 35.7 - 48.1 fL CERNER [facility] Comment:Testing performed by : [facility],[address] [place] [address] Blood 07/09/2022 1:11 PM SANITATION WORKER HOSING MACHINERY 07/09/2022 1:11 PM SANITATION WORKER HOSING MACHINERY Cristal Longoria OPTIC FIBRE DRAWER LAB BLOOD ORDERABLES Final Result Performing Organization Address [facility] Co de Phone Number [facility] [address] [facility] [place] [address] * (ABNORMAL) Iron profile w/ IBC (07/09/2022 1:11 PM SANITATION WORKER HOSING MACHINERY) [facility] Iron 37(L) 50 - 150 mcg/dL AMANDA DENNISW Comment:Testing performed by : [facility], [address] [place] [address]., [address] TIBC 308 250 - 400 mcg/dL [facility] Comment:Testing performed by : [facility], [address] [place] [address]., [address] Transferrin saturation 12(L) 20 - 50 % AMANDA [facility] Comment:Testing performed by : [facility], [address] [place] [address]., [address] Blood 07/09/2022 1:11 PM SANITATION WORKER HOSING MACHINERY 07/09/2022 4:33 PM SANITATION WORKER HOSING MACHINERY Cristal Longoria OPTIC FIBRE DRAWER LAB BLOOD ORDERABLES Final Result Performing Organization Address City/[facility] Co de Phone Number [facility] [address] [facility]. [place] [address] * (ABNORMAL) Reticulocyte Count (07/09/2022 1:11 PM SANITATION WORKER HOSING MACHINERY) Retics, absolute 0.115(H) 0.020 - 0.087 M/cumm AMANDA DENNISWALEX Comment:Testing performed by : [facility],[address] [place] [address] Retics 2.3 0.4 - 2.9 % AMANDA HICKEY Comment:Testing performed by : [facility],[address] [place] [address] Reticulocyte Hgb 33.7 30.5 - 38.0 pg AMANDA HICKEY Comment:Testing performed by : [facility],[address] [facility] [place] [address] Blood 07/09/2022 1:11 PM SANITATION WORKER HOSING MACHINERY 07/09/2022 1:11 PM SANITATION WORKER HOSING MACHINERY Cristal Longoria NP LAB BLOOD ORDERABLES Final Result Performing Organization Address [facility]/ZIP Co de Phone Number [facility] [address] [facility] [place] [address] * Vitamin B12 (07/09/2022 1:11 PM SANITATION WORKER HOSING MACHINERY) Vitamin B12 885 230 - 1,250 pg/mL AMANDA HICKEY Comment:Testing performed by : [facility], [address] [place] [address]., [address] Blood 07/09/2022 1:11 PM SANITATION WORKER HOSING MACHINERY 07/09/2022 4:33 PM SANITATION WORKER HOSING MACHINERY Cristal Longoria OPTIC FIBRE DRAWER LAB BLOOD ORDERABLES Final Result Performing Organization Address [facility]/ZIP Co de Phone Number [facility] [address] [place] [address] documented in this encounter Visit Diagnoses Diagnosis Iron deficiency anemia, unspecified iron deficiency anemia type B12 deficiency Crohn's disease of both small and large intestine with intestinal obstruction (HCC) documented in this encounter Care Teams Radio Time Buyer Relationship Specialty Start Date End Date Tip Armenta MD [address] [address] PCP - General Family Medicine 03/18/19 Eleanor Ramon MD [address] [facility] [address] [place] [address] Medical Oncologist/Boiler/Chiller Technician Hematology 07/12/20 documented as of this encounter
--- OUTSIDE RECORDS SUMMARY | 2024-05-18 22:13 | XMS_ITS | Encounter Summary ---
Author Organization [facility] Address [address] [place] [address] Phone Care Team Providers Care Case Finishing Machine Adjuster Name Role Phone Tip Armenta MD Primary Care Provider [phone] Eleanor Ramon MD Unavailable Encounter Details Date Type Department Care Team (Late st Contact Info) Description 02/26/2022 Orders Only [facility] Hematology [address] [facility] Advanced Medicine 7th [place] [address] [place] [address] Tamiko Chávez RN Iron deficiency anemia, unspecified iron deficiency anemia [...] on file Legal 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 As patient has not been seen in office [email or web address], I explained we can order labs but he would need to be seen in clinic to review results. Patient agreed to appointment on Mar 05 at 2PM with Cristal Longoria at [facility]. Orders are in for [facility], patient stated he would go this to have them drawn. documented in this encounter Plan of Treatment Upcoming Encounters Date Type Department Care Team (Late st Contact Info) Description 05/22/2024 10:45 AM CRUSHING MILL OPERATOR Hospital Encounter [facility] Endoscopy [address] [place] [address] Nikolay Boucher MD [address] [place] [address] 05/22/2024 10:45 AM CRUSHING MILL OPERATOR - 05/22/2024 11:15 AM CRUSHING MILL OPERATOR Surgery [facility] Endoscopy [address] [place] [address] Nikolay Boucher MD [address] [place] [address] EGD Scheduled Procedures Name Priority Associated Diagnoses Date/Ti me ESOPHAGOGASTRODUODENOSCOPY Crohn's disease of both small and large intestine with intestinal obstruction (HCC) 05/22/2024 10:45 AM CRUSHING MILL OPERATOR documented as of this encounter Procedures Procedure Name Priority Date/Time Associated Diagnosis Comments IRON PROFILE W/ IBC Routine 02/28/2022 9 :32 AM CDT Iron deficiency anemia, unspecified iron deficiency anemia type CBC WITH AUTO DIFFERENTIAL Routine 02/28/2022 9:32 AM CDT Iron deficiency anemia, unspecified iron deficiency anemia type RETICULOCYTES Routine 02/28/2022 9:32 AM CDT Iron deficiency anemia, unspecified iron deficiency anemia type FERRITIN Routine 02/28/2022 9:32 AM CDT Iron deficiency anemia, unspecified iron deficiency anemia type documented in this encounter Results * Reticulocyte Count (02/28/2022 9:32 AM CDT) Reticulocyte count, automated 1.6 % [facility] Reticulocyte, absolute 79,200 25,000 - 90,000 cells/uL [facility] Blood 02/28/2022 9:32 AM CDT 02/28/2022 9:33 AM CDT Eleanor Ramon MD LAB BLOOD ORDERABLES Final Result Performing Organization Address City/[facility] Co de Phone Number [facility] [address] [place] [address] * (ABNORMAL) Iron profile w/ IBC (02/28/2022 9:32 AM CDT) Iron 25(L) 50 - 180 mcg/dL [facility] TIBC 359 250 - 425 mcg/dL (calc) [facility] Iron saturation 7(L) 20 - 48 % (calc) [facility] Blood 02/28/2022 9:32 AM CDT 02/28/2022 9:33 AM CDT Eleanor Ramon MD LAB BLOOD ORDERABLES Final Result [facility] [address] [place] [address] * (ABNORMAL) Ferritin (02/28/2022 9:32 AM CDT) Ferritin 8(L) 38 - 380 ng/mL [facility] Blood 02/28/2022 9:32 AM CDT 02/28/2022 9:33 AM CDT Eleanor Ramon MD LAB BLOOD ORDERABLES Final Result [facility] [address] [address] * (ABNORMAL) CBC with auto differential (02/28/2022 9:32 AM CDT) WBC 5.8 3.8 - 10.8 Thousand/u L [facility] RBC, POC 4.95 4.20 - 5.80 Million/uL [facility] Hgb 12.7(L) 13.2 - 17.1 g/dL [facility] Hct 41.6 38.5 - 50.0 % [facility] MCV 84.0 80.0 - 100.0 fL [facility] MCH 25.7(L) 27.0 - 33.0 pg [facility] MCHC 30.5(L) 32.0 - 36.0 g/dL [facility] Rdw 14.2 11.0 - 15.0 % [facility] Platelets 214 140 - 400 Thousand/u L [facility] MPV 9.8 7.5 - 12.5 fL [facility] Neutrophils, abs 3,561 1,500 - 7,800 cells/uL [facility] Lymphocytes, abs 1,537 850 - 3,900 cells/uL [facility] Monocyte abs 481 200 - 950 cells/uL [facility] Eosinophils, abs 191 15 - 500 cells/uL [facility] Basophils, abs 29 0 - 200 cells/uL [facility] Neutrophils 61.4 % [facility] Lymphocyte pct 26.5 % [facility] Monocytes 8.3 % [facility] Eosinophils 3.3 % [facility] Basophils 0.5 % [facility] Blood 02/28/2022 9:32 AM CDT 02/28/2022 9:33 AM CDT Eleanor Ramon MD LAB BLOOD ORDERABLES Final Result [facility] [address] [address] documented in this encounter Visit Diagnoses Diagnosis Iron deficiency anemia, unspecified iron deficiency anemia type- Primary Crohn's disease of both small and large intestine with intestinal obstruction (HCC) documented in this encounter Care Teams Case Finishing Machine Adjuster Relationship Specialty Start Date End Date Tip Armenta MD [address] [address] PCP - General Family Medicine 03/18/19 Eleanor Ramon MD [facility] [address] [facility] [address] [place] [address] Medical Oncologist/Liquor Bridge Operator Hematology 07/12/20 documented as of this encounter
--- OUTSIDE RECORDS SUMMARY | 2024-05-18 22:13 | XMS_ITS | Encounter Summary ---
Author Organization [facility] Address [address] [place] [address] Phone Care Team Providers Care Truckload Owner Operator Name Role Phone Tip Armenta MD Primary Care Provider [phone] Eleanor Ramon MD Unavailable Encounter Details Date Type Department Care Team (Late st Contact Info) Description 02/22/2022 Telephone [facility] Neurosurgery [address] [facility] Advanced Medicine 6th [place] [address] [place] [address] Michael Viveros PA [address] [place], [place] [id number] Social History Tobacco Use Types Packs/Day Years [...] on file 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 * Telephone Encounter - Caroline Acevedo - 02/22/2022 1:41 PM CDT GABAPENTIN 300 MG REF REQ documented in this encounter Plan of Treatment Upcoming Encounters Date Type Department Care Team (Late st Contact Info) Description 05/22/2024 10:45 AM POLE MAKER Hospital Encounter [facility] Endoscopy [address] [address] Nikolay Boucher MD [address] [place] [address] 05/22/2024 10:45 AM POLE MAKER - 05/22/2024 11:15 AM POLE MAKER Surgery [facility] Endoscopy [address] [address] Nikolay Boucher MD [address] [place] [address] EGD Scheduled Procedures Name Priority Associated Diagnoses Date/Ti ar ESOPHAGOGASTRODUODENOSCOPY Crohn's disease of both small and large intestine with intestinal obstruction (HCC) 05/22/2024 10:45 AM POLE MAKER documented as of this encounter Visit Diagnoses Not on filedocumented in this encounter Care Teams Truckload Owner Operator Relationship Specialty Start Date End Date Tip Armenta MD [address] [address] PCP - General Family Medicine 03/18/19 Eleanor Ramon MD [address] [place] [address] Medical Oncologist/Manager Molecular Hematology 07/12/20 documented as of this encounter
--- OUTSIDE RECORDS SUMMARY | 2024-05-18 22:13 | XMS_ITS | Encounter Summary ---
Author Organization [facility] Address [address] [place] [address] Phone Care Team Providers Care Box Lining Machine Feeder Name Role Phone Tip Armenta MD Primary Care Provider [phone] Eleanor Ramon MD Unavailable [phone] Encounter Details Date Type Department Care Team (Late st Contact Info) Description 02/21/2022 Orders Only [facility] Neurosurgery [address] [facility] Medical Office [address] [place] [address] Michael Viveros PA [address] [place] [address] Social History Tobacco Use Types [...] on file Legal Sex Male 1:20 AM CLINICAL MEDICAL ASSISTANT Gender Identity Not on file Sexual Orientation Not on file documented as of this encounter Plan of Treatment Upcoming Encounters Date Type Department Care Team (Late st Contact Info) Description 05/22/2024 10:45 AM CLINICAL MEDICAL ASSISTANT Hospital Encounter [facility] Endoscopy [address] [place] [address] Nikolay Boucher MD [address] [place] [address] 05/22/2024 10:45 AM CLINICAL MEDICAL ASSISTANT - 05/22/2024 11:15 AM CLINICAL MEDICAL ASSISTANT Surgery [facility] Endoscopy [address] [address] Nikolay Boucher MD [address] [place] [address] EGD Scheduled Procedures Name Priority Associated Diagnoses Date/Ti me ESOPHAGOGASTRODUODENOSCOPY Crohn's disease of both small and large intestine with intestinal obstruction (HCC) 05/22/2024 10:45 AM CLINICAL MEDICAL ASSISTANT documented as of this encounter Visit Diagnoses Not on filedocumented in this encounter Care Teams Box Lining Machine Feeder Relationship Specialty Start Date End Date Tip Armenta MD [address] [address] PCP - General Family Medicine 03/18/19 Eleanor Ramon MD [address] [place] [address] Medical Oncologist/Tower Air Traffic Control Specialist Hematology 07/12/20 documented as of this encounter
--- OUTSIDE RECORDS SUMMARY | 2024-05-18 22:13 | XMS_ITS | Encounter Summary ---
Author Organization [facility] Address [address] [place] [address] Phone Care Team Providers Care Medical Billing Associate Name Role Phone Tip Armenta MD Primary Care Provider [phone] Eleanor Ramon MD Unavailable [phone] Encounter Details Date Type Department Care Team (Late st Contact Info) Description 07/20/2022 Telephone [facility] Neurosurgery [address] [facility] Advanced Medicine 6th [place] [address] [place] [address] Michael Viveros PA [address] [place] [address] Social History Tobacco Use Types [...] on file Legal Sex Male 1:20 AM TERRITORY MANAGER Gender Identity Not on file Sexual Orientation Not on file documented as of this encounter Miscellaneous Notes * Telephone Encounter - Michael Viveros PA - 07/20/2022 4:17 PM TERRITORY MANAGER Spoke to patient and updated note in chart ITORY MANAGER * Telephone Encounter - Sandy Hernandez CMA - 07/20/2022 8:45 AM CST Patient calling states he is still having problems with he lower back and is wanting to know what JT would suggest moving forward, if maybe he would benefit from injections, PT, etc, he would like a call back ITORY MANAGER documented in this encounter Plan of Treatment Upcoming Encounters Date Type Department Care Team (Late st Contact Info) Description 05/22/2024 10:45 AM TERRITORY MANAGER Hospital Encounter [facility] Endoscopy [address] [place] [address] Nikolay Boucher MD [address] [facility] [place] [address] 05/22/2024 10:45 AM TERRITORY MANAGER - 05/22/2024 11:15 AM TERRITORY MANAGER Surgery [facility] Endoscopy [address] [place] [address] Nikolay Boucher MD [address] [place] [address] EGD Scheduled Procedures Name Priority Associated Diagnoses Date/Ti me ESOPHAGOGASTRODUODENOSCOPY Crohn's disease of both small and large intestine with intestinal obstruction (HCC) 05/22/2024 10:45 AM TERRITORY MANAGER documented as of this encounter Visit Diagnoses Not on filedocumented in this encounter Care Teams Medical Billing Associate Relationship Specialty Start Date End Date Tip Armenta MD [address] [address] PCP - General Family Medicine 03/18/19 Eleanor Ramon MD [address] [place] [address] Medical Oncologist/Passenger Locomotive Engineer Hematology 07/12/20 documented as of this encounter
--- OUTSIDE RECORDS SUMMARY | 2024-05-18 22:13 | XMS_ITS | Encounter Summary ---
Author Organization [facility] Healthcare Address [address] [place] [address] Care Team Providers Care Bargeman Name Role Phone Tip Armenta MD Primary Care Provider [phone] Eleanor Ramon MD Unavailable [phone] Reason for Visit * Auth/Cert (Routine) Specialty Diagnoses / Procedures Referred By Contac t Referred To Contact Diagnoses Crohn's disease of both small and large intestine without complication (CMS/HCC) (HCC) Crohn's disease of both small and large intestine without complication (CMS/HCC) (HCC) [K50.80] Procedures TX COLONOSCOPY FLX DX W/COLLJ SPEC WHEN PFRMD TX COLONOSCOPY W/BIOPSY SINGLE/MULTIPLE COLONOSCOPY Referral ID Status Reason Start Date Expiration Date Visits Re quested Visits Authorized [id number] 1 1 Encounter Details Date Type Department Care Team (Late st Contact Info) Description 09/28/2022 6:09 AM CDT - 09/28/2022 8:36 AM CDT Hospital Encounter [facility] Endoscopy [address] [address] Roxanna Mclean MD [address] [place] [address] Discharge Disposition: Discharge to home or self [...] on file Legal Sex Male 1:20 AM ASSISTANT GOLF 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 SUPERINTENDENT Gender Identity Not on file Sexual Orientation Not on file documented as of this encounter Last Filed Vital Signs Vital Sign Reading Time Taken Comments Blood Pressure 101/52 09/28/2022 8:20 AM CDT Pulse 73 09/28/2022 8:20 AM CDT Temperature 36.2 ??C (97.2 ??F) 09/28/2022 7:49 AM CD T Respiratory Rate 11 09/28/2022 8:20 AM CDT Oxygen Saturation 95% 09/28/2022 8:20 AM CDT Inhaled Oxygen Concentration - - Weight 102.1 kg (225 lb) 09/28/2022 6:24 AM CDT Height 188 cm (6' 2 ) 09/28/2022 6:24 AM CDT Body Mass Index 28.89 09/28/2022 6:24 AM CDT documented in this encounter Discharge Instructions * Discharge Instructions* Yu Patterson, RN - 09/28/2022 7:48 AM CDT SCOPE [...] Diet: Type of diet ordered {GI diet instructions:93155378}. You may eat and drink at . [...] your physician. Pain/Bleeding: You have had {POST BIOPSY/DILITATION:51666796} performed during the procedure. You may expect a little bleeding from the site. Within the next 48 hours, if the bleeding becomes excessive or is accompanied by abdominal or chest pain, please call your physician immediately. If you are on aspirin or NSAIDS (non-steroidal anti-inflammatory drugs) then you can resume in {Endo ASA/NSAIDS:46837045}. If no follow-up appointment is required, you [...] 03/06/2021 ALPRAZolam (XANAX) 1 mg tablet TK 05/28 TO 1 T PO BID PRF ANXIETY [...] MOUTH EVERY 4HOURS NEEDED FOR PAIN 03/06/21 Provider, MD Shaun adalimumab (Humira,CF, Pen) 40 mg/0.4 mL pen [...] Male Attending MD: Roxanna Mclean M.D. Room: [facility] ENDOSCOPY ROOM 01 Note Status: Finalized [...] scope was passed under direct vision. The [id number] was introduced through the anus and advanced [...] hours - Please call the Nurse Coordinator: [phone] After hours, evening, nights, weekends and holidays - Please call the hospital muffle operator at and ask for the GI fellow personal fitness trainer. Attending Participation: I personally performed the entire procedure. Electronically signed by Roxanna Mclean M.D. Roxanna Mclean M.D. 09/28/2022 7:54:20 AM Number of Addenda: 0 Note Initiated On: 09/28/2022 7:18 AM documented in this encounter Miscellaneous Notes * Perioperative Nursing Note - Yu Patterson RN - 09/28/2022 8:00 AM CDT discussed findings. Discharge instructions given to patient, (and by phone - directed to pick up attendant location).Understanding expressed, questions answered.(No signatures due to CoVid19 protocol) Tolerating po fluids. * Pre-Procedure Instructions - Valery Bello RN - 09/27/2022 12:16 PM CDT Please follow all instruction you were given regarding your bowel prep. When you arrive come to [facility] Hospital entrance. As you enter there will [...] hospital with a responsible adult. If your starting gate driver chooses not to come in to the building or will be picking you up after your procedure-we will call your starting gate driver to confirm your ride home prior to the procedure start time Masking at [facility] is now optional. You may bring a mask and masks are available at hospital entrance. We respect personal choice of anyone who chooses to mask. Be assured employees are ready to mask upon request when providing care. documented in this encounter Plan of Treatment Upcoming Encounters Date Type Department Care Team (Late st Contact Info) Description 05/22/2024 10:45 AM ASSISTANT GOLF COURSE SUPERINTENDENT Hospital Encounter [facility] Endoscopy [address] [place] [address] Nikolay Boucher MD [address] [place] [address] 05/22/2024 10:45 AM ASSISTANT GOLF COURSE SUPERINTENDENT - 05/22/2024 11:15 AM ASSISTANT GOLF COURSE SUPERINTENDENT Surgery [facility] Endoscopy [address] [address] Nikolay Boucher MD [address] [place] [address] EGD Scheduled Procedures Name Priority Associated Diagnoses Date/Ti me ESOPHAGOGASTRODUODENOSCOPY Crohn's disease of both small and large intestine with intestinal obstruction (HCC) 05/22/2024 10:45 AM ASSISTANT GOLF COURSE SUPERINTENDENT documented as of this encounter Procedures Procedure [...] Male Attending MD: Roxanna Mclean M.D. Room: [facility] 01 Note Status: Finalized [...] The scope was passed under direct vision.The [id number] was introduced through the anusand advanced to [...] business hours - Please call theNurse Coordinator: [phone] After hours, evening, nights, weekends and holidays- Please call the hospital muffle operator at and ask for the GI fellow personal fitness trainer. Attending Participation: I personally performed the entire [...] Monocyte abs 0.8 0.2 - 0.8 K/cumm [facility] Eosinophil abs 0.2 0.0 - 0.5 K/cumm [facility] Basophil abs 0.1 0.0 - 0.1 K/cumm [facility] Neutrophil pct 62.5 % [facility] Comment: Interpretive Data Percent cell count reference ranges are not reported, since discordance with absolute values may lead to misinterpretation of CBC data. Current Interpretive Data was last revised on 2017. Imm gran pct 0.3 % [facility] Comment: Interpretive Data Percent cell count reference ranges are not reported, since discordance with absolute values may lead to misinterpretation of CBC data. Current Interpretive Data was last revised on 2017. Lymphocyte pct 23.0 % [facility] Comment: Interpretive Data Percent cell count reference ranges are not reported, since discordance with absolute values may lead to misinterpretation of CBC data. Current Interpretive Data was last revised on 2017. Monocyte pct 10.5 % [facility] Comment: Interpretive Data Percent cell count reference ranges are not reported, since discordance with absolute values may lead to misinterpretation of CBC data. Current Interpretive Data was last revised on 2017. Eosinophil pct 3.0 % [facility] Comment: Interpretive Data Percent cell count reference ranges are not reported, since discordance with absolute values may lead to misinterpretation of CBC data. Current Interpretive Data was last revised on 2017. Basophil pct 0.7 % [facility] Comment: Interpretive Data Percent cell count reference ranges are not reported, since discordance with absolute values may lead to misinterpretation of CBC data. Current Interpretive Data was last revised on 2017. Blood 09/28/2022 6:49 AM CDT 09/28/2022 6:54 AM CDT us Roxanna Mclean MD LAB BLOOD ORDERABLE S Final Result [facility] [address] [facility]. [place] [address] * (ABNORMAL) Hepatic function panel (09/28/2022 6:49 AM CDT) Bilirubin, total 1.5(H) 0.1 - 1.2 mg/dL [facility] Bilirubin, direct 0.3 0.1 - 0.3 mg/dL [facility] Protein, pl 7.4 6.5 - 8.5 g/dL [facility] Albumin 4.6 3.5 - 5.0 g/dL [facility] Alk phos 101 40 - 130 Units/L [facility] ALT 30 7 - 55 Units/L [facility] AST 40 10 - 50 Units/L [facility] Blood 09/28/2022 6:49 AM CDT 09/28/2022 6:54 AM CDT Roxanna Mclean MD LAB BLOOD ORDERABLE S Final Result [facility] [address] [facility] [place] [address] * CBC with auto differential (09/28/2022 6:49 AM CDT) WBC 7.7 3.8 - 9.9 K/cumm [facility] Hgb 16.3 13.0 - 17.5 g/dL [facility] Hct 49.7 38.9 - 50.3 % [facility] Plt 213 150 - 400 K/cumm [facility] MPV 9.5 9.1 - 12.3 fL [facility] RBC 5.67 4.30 - 5.80 M/cumm [facility] MCV 87.7 81.3 - 96.4 fL [facility] MCH 28.7 27.1 - 33.3 pg [facility] MCHC 32.8 32.3 - 35.7 g/dL [facility] RDW CV 14.1 11.1 - 14.9 % [facility] RDW SD 45.2 35.7 - 48.1 fL [facility] NRBC abs 0.00 0.00 - 0.01 K/cumm [facility] Blood 09/28/2022 6:49 AM CDT 09/28/2022 6:54 AM CDT Roxanna Mclean MD LAB BLOOD ORDERABLE S Final Result [facility] [address] [place] [facility]. [place] [address] documented in this encounter Visit Diagnoses Not on filedocumented in this encounter Administered Medications Inactive Administered Medications - up to 3 most recent administrations Medication Order MAR Action Action Date Dose Rate Site ondansetron (ZOFRAN) 4 mg/2 mL injection - [...] before and after each use. , Indications: FlushingIndications:Flushin g sodium chloride 0.9% infusion 30 mL/hr, intravenous, [...] Count Last Ordered Date First Ordered Date methylene blue (PROVAYBLUE) (0.5%) injection 1 09/28/2022 sodium chloride 0.9% flush 0.5-20 mL 1 09/2022 Discharge Count Last Ordered Date First Orde red Date DISCHARGE PATIENT 1 09/28/2022 documented in this encounter Care Teams Bargeman Relationship Specialty Start Date End Date Tip Armenta MD [address] [address] PCP - General Family Medicine 03/18/19 Eleanor Ramon MD [address] [place] [address] Medical Oncologist/Career Education Teacher Hematology 07/12/20 documented as of this encounter
--- OUTSIDE RECORDS SUMMARY | 2024-05-18 22:13 | XMS_ITS | Encounter Summary ---
Author Organization [facility] Address [address] [place] [address] Phone Care Team Providers Care Darkroom Technician Name Role Phone Tip Armenta MD Primary Care Provider [phone] Eleanor Ramon MD Unavailable [phone] Reason for Visit * Reason Onset Date Comments needs labs 02/22/2022 Encounter Details Date Type Department Care Team (Late st Contact Info) Description 02/22/2022 Telephone [facility] H[facility]ology 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 Feeling tired and wouldlike to get labs checked at [facility] to check iron levels. documented in this encounter Plan of Treatment Upcoming Encounters Date Type Department Care Team (Late st Contact Info) Description 05/22/2024 10:45 AM SHEAR ASSEMBLER Hospital Encounter [facility] [address] [place] [address] Nikolay Boucher MD [address] [place] [address] 05/22/2024 10:45 AM SHEAR ASSEMBLER - 05/22/2024 11:15 AM SHEAR ASSEMBLER Surgery [facility] [address] [place] [address] Nikolay Boucher MD [address] [place] [address] EGD Scheduled Procedures Name Priority Associated Diagnoses Date/Ti me ESOPHAGOGASTRODUODENOSCOPY Crohn's disease of both small and large intestine with intestinal obstruction (HCC) 05/22/2024 10:45 AM SHEAR ASSEMBLER documented as of this encounter Visit Diagnoses Not on filedocumented in this encounter Care Teams Darkroom Technician Relationship Specialty Start Date End Date Tip Armenta MD [address] [address] PCP - General Family Medicine 03/18/19 Eleanor Ramon MD [address] [place] [address] Medical Oncologist/Warranty Coordinator Hematology 07/12/20 documented as of this encounter
--- OUTSIDE RECORDS SUMMARY | 2024-05-18 22:13 | XMS_ITS | Encounter Summary ---
Author Organization [facility] Address [address] [place] [address] Care Team Providers Care Financial Sales Professional Name Role Phone Tip Armenta MD Primary Care Provider [phone] Eleanor Ramon MD Unavailable Reason for Referral * Diagnostic Imaging (Routine) - Closed Specialty Diagnoses / Procedures Referred By Contac yuri Referred To Contact Diagnoses Status post cervical disc replacement Procedures XR Spine Cervical Complete 4 or 5 Views Michael Viveros PA [address] [place] [address] Phone: tel: fax: [address] [address] Referral ID Status Reason Start Date Expiration Date Visits Re quested Visits Authorized [id number] Closed 02/15/2022 03/17/2023 1 1 Reason for Visit * Diagnostic Imaging (Routine) - Closed Specialty Diagnoses / Procedures Referred By Contac t Referred To Contact Diagnoses Status post cervical disc replacement Procedures XR Spine Cervical Complete 4 or 5 Views Michael Viveros PA [address] [place] [address] Phone: tel: fax: [place] [address] [address] [phone] Referral ID Status Reason Start Date Expiration Date Visits Re quested Visits Authorized [id number] Closed 02/15/2022 03/17/2023 1 1 Encounter Details Date Type Department Care Team (Latest Contact Info) Description 02/21/2022 10:10 AM CDT - 02/21/2022 11:59 PM CDT Hospital Encounter [facility] [address] [facility] [address] [place] [id number] Status post cervical disc replacement Discharge Disposition: Discharge to home or self [...] on file 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 Gender Identity Not on file Sexual Orientation Not on file documented as of this encounter Medications at Time of Discharge acetaminophen-code ine (TYLENOL with CODEINE #3) 300-30 mg per [...] x 1 syringe U UTD 5 11/26/2018 CIALIS 20 mg tablet TK 1 T PO QD PRN 5 11/26/2017 cyanocobalamin (Vitamin B-12) 1,000 mcg/mL injection INJECT 1 ML Q 2 WEEKS UTD 4 12/10/2017 diphenoxylate-atro pine (LOMOTIL) 2.5-0.025 mg per tablet Take 1 tablet by mouth 3 (three) times a day as needed 5 06/19/2018 folic acid (FOLVITE) 1 mg tablet Take 1 tablet (1 mg total) by mouth every morning 3 10/25/2017 hydroCHLOROthiazid e (HYDRODIURIL) 25 mg tablet Take 1 tablet (25 mg total) by mouth as needed HYDROcodone-acetam inophen (NORCO) 7.5-325 mg per tablet Take 1 tablet by mouth every 6 (six) hours as needed for pain hyoscyamine (LEVSIN) 0.125 mg tabletIndications: Crohn's disease of small and large intestines [...] 2 (two) times a day 10/12/2016 magnesium oxide,aspartate,ci tr 400 mg magnesium capsule Take 1 capsule by mouth as needed 10/12/2016 montelukast (SINGULAIR) 10 mg tablet Take 1 tablet (10 mg total) by mouth as needed 1 07/10/2018 ondansetron (ZOFRAN) 8 mg tablet Take 1 tablet (8 mg total) by mouth as needed 5 12/01/2017 testosterone cypionate (DEPO-TESTOTERONE) 200 mg/mL injection INJ 1 ML IM Q WK 5 11/29/2017 zolpidem (AMBIEN) 10 mg tablet Take 1 tablet (10 mg total) by mouth nightly as needed 5 12/13/2017 adalimumab (Humira,CF, Pen) 40 mg/0.4 mL pen injector kitIndications:Global President hn's disease of small and large intestines with complication (HCC) Inject 0.4 mL (40 mg total) under the skin every 14 (fourteen) days Safety labs required every 3 months for med refills, next labs due 04/2022. Please contact the office to schedule a follow up appointment, required for continued med refills. 2 each 2 02/12/2022 3 documented as of this encounter Discharge Disposition Disposition Code Departure Means Destination Discharge to home or self care documented in this encounter Plan of Treatment Upcoming Encounters Date Type Department Care Team (Late st Contact Info) Description 05/22/2024 10:45 AM REGIONAL ECONOMIST Hospital Encounter [facility] [address] [place] [address] Nikolay Boucher MD [address] [place] [address] 05/22/2024 10:45 AM REGIONAL ECONOMIST - 05/22/2024 11:15 AM REGIONAL ECONOMIST Surgery [facility] [address] [place] [address] Nikolay Boucher MD [address] [place] [address] EGD Scheduled Procedures Name Priority Associated Diagnoses Date/Ti me ESOPHAGOGASTRODUODENOSCOPY Crohn's disease of both small and large intestine with intestinal obstruction (HCC) 05/22/2024 10:45 AM REGIONAL ECONOMIST documented as of this encounter Procedures Procedure Name Priority Date/Time Associated Diagnosis Comments XR SPINE CERVICAL COMPLETE 4 OR 5 VW Schedule Routine, Read Routine (OP Routine) 02/21/2022 10:20 AM CDT Status post cervical disc replacement documented in this encounter Results * XR Spine Cervical [...] it. Electronically signed by: Ekaterina Goldstein MD Narrative 02/21/2022 12:41 PM CDT EXAMINATION: XR SPINE [...] it. Electronically signed by: Ekaterina Goldstein MD Michael Rosalino ABAD IMG XR PROCEDURES Final R esult documented in this encounter Visit Diagnoses Diagnosis Status post cervical disc replacement Crohn's disease of both small and large intestine with intestinal obstruction (HCC) documented in this encounter Care Teams Financial Sales Professional Relationship Specialty Start Date End Date Tip Armenta MD [address] [address] PCP - General Family Medicine 03/18/19 Eleanor Ramon MD [address] [place] [address] Medical Oncologist/Paste Up Worker Hematology 07/12/20 documented as of this encounter
--- OUTSIDE RECORDS SUMMARY | 2024-05-18 22:13 | XMS_ITS | Encounter Summary ---
Author Organization [facility] Address [address] [place] [address] Care Team Providers Care Dock Coordinator Name Role Phone Tip Armenta MD Primary Care Provider [phone] Eleanor Ramon MD Unavailable [phone] Reason for Visit * Auth/Cert (Routine) Specialty Diagnoses / Procedures Referred By Contac t Referred To Contact Diagnoses Crohn's disease of both small and large intestine without complication (CMS/HCC) (HCC) Crohn's disease of both small and large intestine without complication (CMS/HCC) (HCC) [K50.80] Procedures NE COLONOSCOPY FLX DX W/COLLJ SPEC WHEN PFRMD NE COLONOSCOPY W/BIOPSY SINGLE/MULTIPLE COLONOSCOPY Referral ID Status Reason Start Date Expiration Date Visits Re quested Visits Authorized [id number] 1 1 Encounter Details Date Type Department Care Team (Late Contact Info) Description 09/28/2022 7:23 AM CDT Anesthesia Event [facility] [address] [place] [address] Valentín Brand MD [address] [facility] [address] [place] [address] Anesthesia Record Procedure Summary Procedure Name Responsible Anesthesiologist Anesthesia Start Time Anesthesia Stop Time COLONOSCOPY (Colon) Valentín Brand MD 09/28/22 0723 09/28/22 0751 Events Date Time Event Comment 09/28/2022 0658 AN Equip Check 0722 0723 An Start 0723 An Start Data 0724 In Room 0727 Start Supplemental O2 0727 Patient Positioned Laterally 0728 An Induction The patient was reevaluated immediately before moderate or deep sedation use and before anesthesia induction. 0728 Proc Start 0730 Anesthesia Ready 0745 Proc Fin 0747 an stop data 0748 Out of Room 0751 Handoff to RN I completed my handoff to the receiving nurse during which we: 1. Patient identified 2. Responsible provider identified 3. Pertinent medical history reviewed 4. Procedure type and surgical course discussed 5. Intraoperative anesthetic management and any significant issues discussed 6. Expectations and concerns for postop period discussed 7. Questions solicited from receiving nurse 8. Patient disposition at the time of handoff: PACU 0751 An Stop Meds Name Total propofol 390 mg Lidocaine IV 2 % 5 mL sodium chloride 0.9% infusion 600 mL * Agents Name O2 N2O Air * Blood No blood administrations on file. 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 Gender Identity Not on file Sexual Orientation Not on file documented as of this encounter OR Notes * Anesthesia Postprocedure Evaluation - Valentín Brand MD - 09/28/2022 11:43 AM CDT Patient: Mello Herbert Procedure Summary Date: 09/28/22 Room / Location: [facility] ROOM [facility] Anesthesia Start: 722 Anesthesia Stop: 075 Procedure: COLONOSCOPY (Colon) Diagnosis: Crohn's disease of both small and large intestine without complication (CMS/HCC) (HCC) (Crohn's disease of both small and large intestine without complication (CMS/HCC) (HCC) [K50.80]) Providers: Roxanna Mclean MD Responsible Provider: Valentín Brand MD Anesthesia Type: general ASA Status: 2 Anesthesia Type: general Last vitals BP 101/52 Pulse 73 Temp 36.2 ??C (97.2 ??F) (Temporal) Resp 11 SpO2 95% Anesthesia Post Evaluation Patient location during evaluation: PACU Patient participation: complete - patient participated Level of consciousness: fully awake Pain score: 0 Pain management: adequate Airway patency: adequate Evidence of recall: no Cardiovascular status: hemodynamically stable and acceptable Respiratory status: acceptable and room air Hydration status: acceptable Pt is: normothermic Nausea/Vomiting status: none No notable events documented. * Anesthesia Preprocedure Evaluation - Valentín Brand MD - 09/28/2022 7:22 AM CDT Images from the original note were not included. Anesthesia Evaluation Mello Herbert is a 57 y.o. male Procedure(s): COLONOSCOPY Pre-Op Diagnosis Codes: * Crohn's disease of both small and large intestine without complication (CMS/HCC) (HCC) [K50.80] Patient Active Problem List Diagnosis ??? Iron deficiency anemia ??? Erythrocytosis ??? Crohn's disease of both small and large intestine (HCC) ??? Vitamin B12 deficiency ??? Chronic diarrhea ??? High risk medications (not anticoagulants) long-term use ??? Cervical disc disorder with myelopathy of mid-cervical region ??? Chronic hypertension ??? Risk factors for obstructive sleep apnea ??? Arthralgia ??? Overweight with body mass index (BMI) 25.0-29.9 ??? High risk medication use ??? Nephrolithiasis ??? Abdominal pain ??? PVT (portal vein thrombosis) ??? Abnormal level of blood mineral ??? Chronic fatigue ??? Cramp and spasm ??? Crohn's disease of large intestine with other complication (HCC) ??? Hernia of anterior abdominal wall ??? Inguinal pain ??? Mouth ulceration ??? Postsurgical malabsorption, not elsewhere classified ??? Vitamin D deficiency ??? Prepatellar bursitis ??? Stage 3a chronic kidney disease (HCC) ??? Cellulitis ??? Infection of right prepatellar bursa ??? History of Crohn's disease Past Medical History: Diagnosis Date ??? Anemia ??? Anxiety and depression ??? Crohn's colitis (CMS/HCC) (HCC) ??? GERD (gastroesophageal reflux disease) ??? Hypertension Past Surgical History: Procedure Laterality Date ??? CERVICAL DISC ARTHROPLASTY 2020 ??? SMALL BOWEL RESECTION Allergies Allergen Reactions ??? Latex Rash Med List Status: Nurse Complete Set By: Rosa Amin RN at 09/28/2022 6:28 AM Taking? Last Dose Start Date End Date Provider acetaminophen-codeine (TYLENOL with CODEINE #3) 300-30 mg per tablet 09/27/2022 03/06/21 -- Shaun Chavarria MD adalimumab (Humira,CF, Pen) 40 mg/0.4 mL pen injector kit Past Week 09/25/22 -- Roxanna Mclean MD Inject 0.4 mL (40 mg total) under the skin every 14 (fourteen) days No further refills will be authorized until a follow up appointment is scheduled and safety labs are completed (due this month). Notes: No further refills will be authorized until a follow up appointment is scheduled and safety labs are completed (due this month). Thanks. ALPRAZolam (XANAX) 1 mg tablet 09/28/2022 11/21/17 -- Shaun Chavarria MD amitriptyline (ELAVIL) 10 mg tablet Past Week 02/06/21 -- Shaun Chavarria MD amLODIPine (NORVASC) 5 mg tablet 09/28/2022 01/31/21 -- Shaun Chavarria MD BD SAFETYGLIDE SYRINGE 3 mL 23 x 1 syringe -- 11/26/18 -- Shaun Chavarria MD cholecalciferol (VITAMIN D-3) 50,000 unit capsule Past Week 08/28/22 -- Shaun Chavarria MD CIALIS 20 mg tablet -- 11/26/17 -- Shaun Chavarria MD cyanocobalamin (Vitamin B-12) 1,000 mcg/mL injection Past Week 12/10/17 -- Shaun Chavarria MD diphenoxylate-atropine (LOMOTIL) 2.5-0.025 mg per tablet Past Week 06/19/18 -- Shaun Chavarria MD Notes: Uses daily folic acid (FOLVITE) 1 mg tablet Past Week 10/25/17 -- Shaun Chavarria MD gabapentin (NEURONTIN) 300 mg capsule Past Month 02/22/22 09/28/22 Michael Viveros PA Take 1 capsule (300 mg total) by mouth 3 (three) times a day Notes: Taken hydroCHLOROthiazide (HYDRODIURIL) 25 mg tablet Past Week -- -- Shaun Chavarria MD HYDROcodone-acetaminophen (NORCO) 7.5-325 mg per tablet -- -- -- Shaun Chavarria MD hyoscyamine (LEVSIN) 0.125 mg tablet Past Week 10/25/21 -- Roxanna Mclean MD TAKE 1 TABLET(0.125 MG) BY MOUTH EVERY 6 HOURS NEEDED FOR CRAMPING OR DIARRHEA/ SPASMS irbesartan (AVAPRO) 300 mg tablet 09/28/2022 01/30/21 -- Shaun Chavarria MD lansoprazole (PREVACID) 15 mg capsule 09/28/2022 10/12/16 -- Shaun Chavarria MD magnesium oxide,aspartate,citr 400 mg magnesium capsule Past Week 10/12/16 -- Shaun Chavarria MD montelukast (SINGULAIR) 10 mg tablet Past Week 07/10/18 -- Shaun Chavarria MD nystatin 100,000 unit/mL suspension -- 08/24/22 -- Shaun Chavarria MD ondansetron (ZOFRAN) 8 mg tablet 09/28/2022 12/01/17 -- Shaun Chavarria MD polyethylene glycol (GoLYTELY) 236-22.74-6.74 -5.86 gram solution 09/28/2022 09/25/22 -- Roxanna Mclean MD Drink 240 ml the day before your Colonoscopy - PLEASE FOLLOW PREP INSTRUCTIONS GIVEN BY DR MCLEAN OFFICE sulfamethoxazole-trimethoprim (BACTRIM DS) 800-160 mg per tablet Past Week 07/12/22 -- ProviderShaun MD Notes: prn testosterone cypionate (DEPO-TESTOTERONE) 200 mg/mL injection Unknown 11/29/17 -- Shaun Chavarria MD zolpidem (AMBIEN) 10 mg tablet Past Week 12/13/17 -- ProviderShaun MD Current Facility-Administered Medications: ??? sodium chloride 0.9% flush 0.5-20 mL, 0.5-20 mL, intra-catheter, PRN ??? sodium chloride 0.9% infusion, 30 mL/hr, intravenous, Continuous, Last Rate: 30 mL/hr at 09/28/22657, Rate Verify at 09/28/22657 Social History Tobacco Use Smoking Status Never Smokeless Tobacco Never Vaping Use Vaping Status Never Used Alcohol Use: Not At Risk (09/28/2022) AUDIT-C ??? Frequency of Alcohol Consumption: Never ??? Average Number of Drinks: 1 or 2 ??? Frequency of Binge Drinking: Never Substance and Sexual Activity Drug Use Never Family History Problem Relation Age of Onset ??? No Known Problems Mother ??? No Known Problems Father Vitals: 09/28/22 0624 09/28/22 0645 BP: 127/74 Pulse: 80 Resp: 17 Temp: 36.2 ??C (97.2 ??F) SpO2: 94% PT: No results found for requested labs within last 30 days. INR: No results found for requested labs within last 30 days. APTT: No results found for requested labs within last 30 days. Hgb A1C: No results found for requested labs within last 30 days. CBC RBC: 09/28/2022: 5.67 M/cumm RDW: No results found for requested labs within last 30 days. MCHC: 09/28/2022: 32.8 g/dL MCH: 09/28/2022: 28.7 pg MCV: 09/28/2022: 87.7 fL Hct: 09/28/2022: 49.7 % Hgb: 09/28/2022: 16.3 g/dL WBC: 09/28/2022: 7.7 K/cumm MPV: 09/28/2022: 9.5 fL Platelets: 09/28/2022: 213 K/cumm RDW CV: 09/28/2022: 14.1 % RDW Sd: 09/28/2022: 45.2 fL BMP Glucose: No results found for requested labs within last 30 days. Calcium: No results found for requested labs within last 30 days. Sodium: No results found for requested labs within last 30 days. Potassium: No results found for requested labs within last 30 days. CO2: No results found for requested labs within last 30 days. Chloride: No results found for requested labs within last 30 days. BUN: No results found for requested labs within last 30 days. Creatinine: No results found for requested labs within last 30 days. DOS Physical Exam Medical history, medications, and allergies reviewed. Attestation: This PAT evaluation Airway Exam: Mallampati: III Cervical ROM: FROM Cardiovascular Exam: Rate: regular Rhythm: regular Pulmonary Exam: LCTA, bilat Anesthesia Plan ASA 2 My patient is approved for the Anesthesia Controlled Medication protocol when under care of a DIRECTOR OF RETAIL OPERATIONS Planned anesthesia: General Informed Consent: Anesthesia plan and risks discussed with patient. Consent and Attending signature: I and/or my designee have discussed the anesthesia plan, benefits, possible alternatives, parental presence at time of induction (if indicated), and clinically relevant risks that may include dental injury, unintentional awareness, and/or other complications. The patient and/or parent/legal guardian understand, and agree to proceed. All questions answered. documented in this encounter Plan of Treatment Upcoming Encounters Date Type Department Care Team (Late st Contact Info) Description 05/22/2024 10:45 AM [facility] Hospital Encounter [facility] [address] [place] [address] Nikolay Boucher MD [facility] [address] [place] [address] 05/22/2024 10:45 AM RIGGING ENGINEER - 05/22/2024 11:15 AM [facility] Surgery [facility] [address] [place] [address] Nikolay Boucher MD [address] [place] [address] EGD Scheduled Procedures Name Priority Associated Diagnoses Date/Ti me ESOPHAGOGASTRODUODENOSCOPY Crohn's disease of both small and large intestine with intestinal obstruction (HCC) 05/22/2024 10:45 AM RIGGING ENGINEER documented as of this encounter Visit Diagnoses Not on filedocumented in this encounter Administered Medications Inactive Administered Medications - up to 3 most recent administrations Medication Order MAR Action Action Date Dose Rate Site lidocaine (XYLOCAINE) 20 mg/mL (2 %) injection intravenous, As needed, Starting on Sat09/28/22 at 0728, Anesthesia Intra-op, Indications: Administration of Local AnesthesiaIndications:Administratio n of Local Anesthesia Given 09/28/2022 7:28 AM CDT 5 mL propofoL (DIPRIVAN) 10 mg/mL IV intravenous, As needed, Starting on Sat09/28/22 at 0728, Anesthesia Intra-op Given 09/28/2022 7:42 AM CDT 70 mg Given 09/28/2022 7:38 AM CDT 20 mg Given 09/28/2022 7:37 AM CDT 50 mg sodium chloride 0.9% infusion 30 mL/hr, intravenous, Continuous, Starting on Sat09/28/22 at 0700, Pre-Procedure (GI) Rate/Dose Verify 09/28/2022 7:23 AM CDT 30 mL/hr New Bag 09/28/2022 6:51 AM CDT 30 mL/hr 30 mL/hr documented in this encounter Care Teams Dock Coordinator Relationship Specialty Start Date End Date Tip Armenta MD [address] [address] PCP - General Family Medicine 03/18/19 Eleanor Ramon MD [address] [place] [address] Medical Oncologist/Electronics Engineering Technician Hematology 07/12/20 documented as of this encounter
--- OUTSIDE RECORDS SUMMARY | 2024-05-18 22:13 | XMS_ITS | Encounter Summary ---
Author Organization [facility] Address [address] [place] [address] Phone Care Team Providers Care Component Technician Name Role Phone Tip Armenta MD Primary Care Provider [phone] Eleanor Ramon MD Unavailable [phone] Reason for Visit * Episode Based Medications (Routine) - Closed Specialty Diagnoses / Procedures Referred By Contac t Referred To Contact Oncology Diagnoses Other iron deficiency anemia Erythrocytosis Procedures IN INJ FERRIC CARBOXYMALTOS 1MG FERRIC CARBOXYMALTOSE (INJECTAFER) INFUSION Eleanor Ramon MD [address] [place] [address] Phone: tel: fax: [facility] [address] [place] [address] Phone: tel: Referral ID Status Reason Start Date Expiration Date Visits Re quested Visits Authorized [id number] Closed 04/03/2023 07/03/2023 1 12 Encounter Details Date Type Department Care Team (Late st Contact Info) Description 03/14/2022 7:30 AM CDT Infusion [facility] [address] 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 Gender Identity Not on file Sexual Orientation Not on file documented as of this encounter Last Filed Vital Signs Vital Sign Reading Time Taken Comments Blood Pressure 113/68 03/14/2022 9:40 AM CDT Pulse 81 03/14/2022 9:40 AM CDT Temperature 37 ??C (98.6 ??F) 03/14/2022 9:40 AM CDT Respiratory Rate 24 03/14/2022 9:40 AM CDT Oxygen Saturation 99% 03/14/2022 9:40 AM CDT Inhaled Oxygen Concentration - - Weight 99.8 kg (220 lb) 03/14/2022 7:37 AM CDT Height - - Body Mass Index 29.03 02/21/2022 10:44 AM CDT documented in this encounter Nursing Notes * Yissel Espinoza, RN - 03/14/2022 7:30 AM CDT Oncology Nursing Note [facility] Mello Herbert is a 56 y.o. male who presents for treatment cycle 4, day 1 of Injectafer. Pre-treatment Nursing Assessment Nursing Assessment Appetite: Good Diarrhea: No Constipation: No Last BM Date: 03/14/22 Existing Patients: Any falls since your last visit?: No Fatigue: Occassional Mouth Sores: No Nausea/Vomiting: No Neurological symptoms: No Pain: No Peripheral Neuropathy: No Pt states has potential to be ?: N/A Shortness of Breath?: No Skin Condition/Temp: Warm, Dry, No swelling (denies rash) Oral Mucosa Grade: Normal (0) Abdomen: Soft Swelling: No Additional Notes: BP: 113/68 Temp: 37 ??C (98.6 ??F) Temp src: Transdermal Pulse: 81 Resp: 24 SpO2: 99 % Weight: 99.8 kg (220 lb) Pain Score: 0 - No pain Treatment Patient: met treatment parameters Pre blood return: Gm Herbert tolerated treatment well. Patient was frequently observed and monitored throughout the administration of their treatment. Additional Notes: No problems seen or reported during 30 minutes of observation Post blood return: Brisk IV access post infusion: NS Patient Education Treatment Education: Information/teaching given to patient including fall prevention, pain, signs and symptoms of infection, bleeding, adverse reaction, symptom management, process and procedure related to today's visit, and when to notify MD Response: Verbalizes understanding Discharge Plan Discharge instructions given to patient. Future appointments given and reviewed with treatment plan. Discharge Mode: Ambulatory Accompanied by: Self Discharged To: Home documented in this encounter Plan of Treatment Upcoming Encounters Date Type Department Care Team (Late st Contact Info) Description 05/22/2024 10:45 AM STAIN DIPPER Hospital Encounter [facility]oscopy [address] [place] [address] Nikolay Boucher MD [address] [facility] [place] [address] 05/22/2024 10:45 AM STAIN DIPPER - 05/22/2024 11:15 AM STAIN DIPPER Surgery [facility] [address] [address] Nikolay Boucher MD [address] [place] [address] EGD Scheduled Procedures Name Priority Associated Diagnoses Date/Ti ct ESOPHAGOGASTRODUODENOSCOPY Crohn's disease of both small and large intestine with intestinal obstruction (HCC) 05/22/2024 10:45 AM STAIN DIPPER documented as of this encounter Visit Diagnoses Diagnosis Iron deficiency anemia, unspecified iron deficiency anemia type- Primary Other iron deficiency anemia Erythrocytosis Polycythemia, secondary Crohn's disease of both [...] mL/hr, Administer over 20 Minutes, Once, On Sat03/14/22 at 0815, For 1 doseIndications:Other iron deficiency anemia New Bag 03/14/2022 8:38 AM CDT 750 mg 795 mL/hr documented in this encounter Orders Medications Ordered That Leon ht Not Have Been Administered Count Last Ordered Date First Ordered Date acetaminophen (TYLENOL) tablet 650 mg 1 diphenhydrAMINE (BENADRYL) tab/cap 25 mg 1 03/14/2022 ondansetron (ZOFRAN) tablet 4 mg 1 03/14/20 Nursing Count Last Ordered Date First Orde red Date 1:1 OBSERVATION 1 03/14/2022 Appointment Requests Count Last Ordered Date Fi rst Ordered Date ONCBCN INFUSION APPT REQUEST 1 03/14/2022 documented in this encounter Care Teams Component Technician Relationship Specialty Start Date End Date Tip Armenta MD [address] [address] PCP - General Family Medicine 03/18/19 Eleanor Ramon MD [address] [facility] [address] [place] [address] Medical Oncologist/Trust Vault Clerk Hematology 07/12/20 documented as of this encounter
--- OUTSIDE RECORDS SUMMARY | 2024-05-18 22:13 | XMS_ITS | Encounter Summary ---
Author Organization [facility] Address [address] [place] [address] Phone Care Team Providers Care Guide Cruise Name Role Phone Tip Armenta MD Primary Care Provider [phone] Eleanor Ramon MD Unavailable [phone] Reason for Visit * Reason Onset Date Comments Call from pt re: Humira refill 09/25/2022 Encounter Details Date Type Department Care Team (Late st Contact Info) Description 09/25/2022 Telephone [facility] Gastroenterology [address] [facility] 12th [place] [address] [place] [address] Manish Castillo LPN Call from pt re: Humira refill Social [...] on file Legal 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 2 each 09/25/2022 3 documented in this encounter Miscellaneous Notes * Addendum Note - Manish Castillo LPN - 09/25/2022 12:45 PM CDTAddended by: MANISH CASTILLO on: 09/25/2022 12:45 PM Modules accepted: Orders * Telephone Encounter - Manish Castillo LPN - 09/25/2022 11:42 AM CDT Images from the original note were not included. VM received from patient on prescription refill line requesting a refill of his Humira. Reviewed pt's chart, last seen via virtual visit on 08/17/2022. No ROV scheduled, RMA has reached out to patientin July to schedule an appointment, however, no response received. Also due for safety labs this month. See below. 30d refill of Humira authorized. No further refills will be authorized until ROV is scheduled and pt has completed safety labs. Paige Louise CPhT Kittstein, Lori A.; Manish Castillo LPN Can you please reach out to him to schedule his colonoscopy, he wants to schedule his appt afterwards. He also mentioned that he would like [employer] for his prep, says it's worked best for him in theidst. You can let me know once he's scheduled then I can setup his f/u appt. Previous Messages ----- Message ----- From: Sofia Talamantes Sent: 08/01/2022 11:53 AM CDT To: Dagmar Shell, Could you please reach out to pt and schedule is overdue ROV please. He had a virtual back in July2021. It also looks like he is way over due for his safety labs. Looks like Manish sent in a prescription with no refills. I am getting ready to submit a PA for the Humira. documented in this encounter Plan of Treatment Upcoming Encounters Date Type Department Care Team (Late st Contact Info) Description 05/22/2024 10:45 AM BOBCAT OPERATOR Hospital Encounter [facility] Endoscopy [address] [place] [address] Nikolay Boucher MD [address] [place] [address] 05/22/2024 10:45 AM BOBCAT OPERATOR - 05/22/2024 11:15 AM BOBCAT OPERATOR Surgery [facility]oscopy [address] [place] [address] Nikolay Boucher MD [address] [place] [address] EGD Scheduled Procedures Name Priority Associated Diagnoses Date/Ti me ESOPHAGOGASTRODUODENOSCOPY Crohn's disease of both small and large intestine with intestinal obstruction (HCC) 05/22/2024 10:45 AM BOBCAT OPERATOR documented as of this encounter Visit [...] authorized until a follow up appointment is scheduled. Reorder 08/20/2022 09/25/2022 documented as of this encounter Care Teams Guide Cruise Relationship Specialty Start Date End Date Tip Armenta MD [address] [address] PCP - General Family Medicine 03/18/19 Eleanor Ramon MD [address] [facility] [address] [place] [address] Medical Oncologist/Microfilm Processor Hematology 07/12/20 documented as of this encounter
--- OUTSIDE RECORDS SUMMARY | 2024-05-18 22:13 | XMS_ITS | Encounter Summary ---
Author Organization [facility] Address [address] [place] [address] Phone Care Team Providers Care Solder Sprayer Name Role Phone Tip Armenta MD Primary Care Provider [phone] Eleanor Ramon MD Unavailable [phone] Encounter Details Date Type Department Care Team (Late st Contact Info) Description 09/26/2022 Telephone [facility] Gastroenterology [address] [facility] 12th [place] [address] [place] [address] Paige Louise CPhT Social History Tobacco Use Types Packs/Day Years [...] on file 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 documented in this encounter Plan of Treatment Upcoming Encounters Date Type Department Care Team (Late st Contact Info) Description 05/22/2024 10:45 AM AIRCRAFT SYSTEMS TECHNICIAN Hospital Encounter [facility] Endoscopy [address] [place] [address] Nikolay Boucher MD [address] [place] [address] 05/22/2024 10:45 AM AIRCRAFT SYSTEMS TECHNICIAN - 05/22/2024 11:15 AM AIRCRAFT SYSTEMS TECHNICIAN Surgery [facility] Endoscopy [address] [place] [address] Nikolay Boucher MD [address] [place] [address] EGD Scheduled Procedures Name Priority Associated Diagnoses Date/Ti me ESOPHAGOGASTRODUODENOSCOPY Crohn's disease of both small and large intestine with intestinal obstruction (HCC) 05/22/2024 10:45 AM AIRCRAFT SYSTEMS TECHNICIAN documented as of this encounter Visit Diagnoses Not on filedocumented in this encounter Care Teams Solder Sprayer Relationship Specialty Start Date End Date Tip Armenta MD [address] [address] PCP - General Family Medicine 03/18/19 Eleanor Ramon MD [address] [place], [place] [address] Medical Oncologist/Dramatic Teacher Hematology 07/12/20 documented as of this encounter
--- OUTSIDE RECORDS SUMMARY | 2024-05-18 22:13 | XMS_ITS | Encounter Summary ---
Author Organization [facility] of [facility] Address [address] [place] [address] Phone Care Team Providers Care Inward Toll Operator Name Role Phone Tip Armenta MD Primary Care Provider [phone] Eleanor Ramon MD Unavailable [phone] Encounter Details Date Type Department Care Team (Late st Contact Info) Description 03/08/2022 Orders Only [facility] Oncology [address] [facility] 7th [place] [address] [place] [address] Domingo Brandt MD [address] [place], [place] [id number] Social History Tobacco Use Types Packs/Day Years [...] file Legal Sex Male 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 SUPERVISOR FORMING AND TEMPERING Gender Identity Not on file Sexual Orientation Not on file documented as of this encounter Plan of Treatment Upcoming Encounters Date Type Department Care Team (Late st Contact Info) Description 05/22/2024 10:45 AM SUPERVISOR FORMING AND TEMPERING Hospital Encounter [facility] Endoscopy [address] [place] [address] Nikolay Boucher MD [address] [place] [address] 05/22/2024 10:45 AM SUPERVISOR FORMING AND TEMPERING - 05/22/2024 11:15 AM SUPERVISOR FORMING AND TEMPERING Surgery [facility] Endoscopy [address] [address] Nikolay Boucher MD [address] [place] [address] EGD Scheduled Procedures Name Priority Associated Diagnoses Date/Ti me ESOPHAGOGASTRODUODENOSCOPY Crohn's disease of both small and large intestine with intestinal obstruction (HCC) 05/22/2024 10:45 AM SUPERVISOR FORMING AND TEMPERING documented as of this encounter Visit Diagnoses Not on filedocumented in this encounter Care Teams Inward Toll Operator Relationship Specialty Start Date End Date Tip Armenta MD [address] [address] PCP - General Family Medicine 03/18/19 Eleanor Ramon MD [address] [place] [address] Medical Oncologist/Clinical Laboratory Scientist Hematology 07/12/20 documented as of this encounter
--- OUTSIDE RECORDS SUMMARY | 2024-05-18 22:13 | XMS_ITS | Encounter Summary ---
Author Organization [facility] of [facility] Address [address] [place] [address] Phone Care Team Providers Care Hot Mill Worker Name Role Phone Tip Armenta MD Primary Care Provider [phone] Eleanor Ramon MD Unavailable Reason for Visit * Reason Comments OP Infusion * Episode Based Medications (Routine) - Closed Specialty Diagnoses / Procedures Referred By Contac t Referred To Contact Oncology Diagnoses Other iron deficiency anemia Erythrocytosis Procedures TX INJ FERRIC CARBOXYMALTOS 1MG FERRIC CARBOXYMALTOSE (INJECTAFER) INFUSION Eleanor Ramon MD [address] [place] [address] Phone: tel: fax: [facility] [address] [place] [address] Phone: tel: Referral ID Status Reason Start Date Expiration Date Visits Re quested Visits Authorized [id number] Closed 04/03/2023 07/03/2023 1 12 Encounter Details Date Type Department Care Team (Late st Contact Info) Description 03/28/2022 8:00 AM CDT Infusion [facility] Oncology [address] [facility] 7th [place] [address] Iron deficiency anemia, unspecified iron [...] on file Legal Sex Male 1:20 AM BRIDGE TENDER Gender Identity Not on file Sexual Orientation Not on file documented as of this encounter Last Filed Vital Signs Vital Sign Reading Time Taken Comments Blood Pressure 118/76 03/28/2022 8:13 AM CDT Pulse 97 03/28/2022 8:13 AM CDT Temperature 36.8 ??C (98.2 ??F) 03/28/2022 8:13 AM CD T Respiratory Rate 20 03/28/2022 8:13 AM CDT Oxygen Saturation 98% 03/28/2022 8:13 AM CDT Inhaled Oxygen Concentration - - Weight 100.2 kg (220 lb 12.8 oz) 03/28/2022 8:13 AM CDT Height - - Body Mass Index 29.13 02/21/2022 10:44 AM CDT documented in this encounter Nursing Notes * Roberto Zapien, RN - 03/28/2022 8:00 AM CDT Oncology Nursing Note [facility] Mello Herbert is a 56 y.o. male who presents for Injectafer. Pre-treatment Nursing Assessment Nursing Assessment Appetite: Good Diarrhea: No Constipation: Yes Existing Patients: Any falls since your last visit?: No Fatigue: Occassional Mouth Sores: No Nausea/Vomiting: No Neurological symptoms: No Pain: No Peripheral Neuropathy: No Shortness of Breath?: No Swelling: No Additional Notes: BP: 118/76 Temp: 36.8 ??C (98.2 ??F) Temp src: Transdermal Pulse: 97 Resp: 20 SpO2: 98 % Weight: 100.2 kg (220 lb 12.8 oz) Treatment Patient: does not require labs today. Pre blood return: Brisk Mello Herbert tolerated treatment well. Patient was frequently observed and monitored throughout the administration of their treatment. Additional Notes: No reaction noted during 30 minute observation. Post blood return: Brisk IV access post [...] st Contact Info) Description 05/22/2024 10:45 AM BRIDGE TENDER Hospital Encounter [facility] Endoscopy [address] [place] [address] Nikolay Boucher MD [address] [place] [address] 05/22/2024 10:45 AM BRIDGE TENDER - 05/22/2024 11:15 AM BRIDGE TENDER Surgery [facility] Endoscopy [address] [address] Nikolay Boucher MD [address] [place] [address] EGD Scheduled Procedures Name Priority Associated Diagnoses Date/Ti nm ESOPHAGOGASTRODUODENOSCOPY Crohn's disease of both small and large intestine with intestinal obstruction (HCC) 05/22/2024 10:45 AM BRIDGE TENDER documented as of this encounter Visit Diagnoses [...] mL/hr, Administer over 20 Minutes, Once, On Sat03/28/22 at 0900, For 1 doseIndications:Other iron deficiency anemia New Bag 03/28/2022 8:51 AM CDT 750 mg 795 mL/hr documented in this encounter Orders Medications Ordered That Leon ht Not Have Been Administered Count Last Ordered Date First Ordered Date acetaminophen (TYLENOL) tablet 650 mg 1 06/2021 diphenhydrAMINE (BENADRYL) tab/cap 25 mg 1 03/28/2022 ondansetron (ZOFRAN) tablet 4 mg 1 03/28/20 Nursing Count Last Ordered Date First Orde red Date 1:1 OBSERVATION 1 03/28/2022 Appointment Requests Count Last Ordered Date Fi rst Ordered Date ONCBCN INFUSION APPT REQUEST 1 03/28/2022 documented in this encounter Care Teams Hot Mill Worker Relationship Specialty Start Date End Date Tip Armenta MD [address] [address] PCP - General Family Medicine 03/18/19 Eleanor Ramon MD [address] [place] [address] Medical Oncologist/Truck Greaser Hematology 07/12/20 documented as of this encounter
--- OUTSIDE RECORDS SUMMARY | 2024-05-18 22:14 | XMS_ITS | Encounter Summary ---
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 Lumbosacral stenosis without neurogenic claudication Procedures XR Scoliosis 6 or More Views Michael Viveros PA [address] [place] [address] Phone: tel: fax: [address] [phone] Referral ID Status Reason Start Date Expiration Date Visits Re quested Visits Authorized [id number] Closed 10/16/2021 11/15/2022 1 1 Encounter Details Date Type Department Care Team (Late st Contact Info) Description 10/16/2021 Orders Only [facility] Neurosurgery [address] [facility] Medical Office Building [address] [place] [address] Michael Viveros PA [address] [place] [address] Status post cervical disc replacement (Primary Dx); 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 Never 03/03/2021 Average Number of Drinks Not on file Q3: How often do you have si x or more drinks on one occasion? Never 03/03/2021 Sex and Gender Information Value Date Recorded Sex Assigned at Not on file Legal Sex Male 1:20 AM PHARMACY TECHNICIAN Gender Identity Not on file Sexual Orientation Not on file documented as of this encounter Plan of Treatment Upcoming Encounters Date Type Department Care Team (Late st Contact Info) Description 05/22/2024 10:45 AM PHARMACY TECHNICIAN Hospital Encounter [facility] Endoscopy [address] [place] [address] Nikolay Boucher MD [address] [place] [address] 05/22/2024 10:45 AM PHARMACY TECHNICIAN - 05/22/2024 11:15 AM PHARMACY TECHNICIAN Surgery [facility] Endoscopy [address] [place] [address] Nikolay Boucher MD [address] [place] [address] EGD Scheduled Procedures Name Priority Associated Diagnoses Date/Ti nv ESOPHAGOGASTRODUODENOSCOPY Crohn's disease of both small and large intestine with intestinal obstruction (HCC) 05/22/2024 10:45 AM PHARMACY TECHNICIAN documented as of this encounter Results * XR Scoliosis 6 or More Views (10/19/2021 8:34 AM CDT) Anatomical Region Laterality Modality Spine N/A Computed Radiogr aphy 10/19/2021 9:37 AM CDT Impressions 10/19/2021 5:41 PM CDT 1. ??Unchanged disc arthroplasty at C6-C7. 2. ??Normal truncal balance without pelvic obliquity. 3. ??Moderate degenerative disc disease at L5-S1. Dictated by: Andrea Marsh MD The radiology attending physician has personally reviewed this study, and had reviewed and/or edited this written report and agrees with it. Electronically signed by: Alen Bob M.D. Narrative 10/19/2021 5:41 PM CDT EXAMINATION: XR SCOLIOSIS ??6 OR MORE VIEWS HISTORY: Neck and back pain FINDINGS: Standing AP and lateral views of the entire spine using the EOS system are provided for interpretation. ??AP, lateral, and flexion and extension views of cervical spine spine and AP, lateral, and flexion-extension views of the lumbar spine are provided for interpretation. ??Comparison is made to radiographs of the 07/12/2021. There is an unchanged disc arthroplasty of C6-C7. ??There is minimal levocurvature of the lumbar spine. ??The truncal balance is normal. There is no pelvic obliquity. The alignment of the cervical spine is normal. ??There is mild degenerative disc disease at C5-C6. ??There is no acute fracture of the cervical spine. ??There is no listhesis of the cervical spine on flexion and extension views. ??There is no prevertebral soft tissue swelling. ?? The alignment of the lumbar spine is normal. ??There is no listhesis of the lumbar spine on flexion and extension views. ??There is no acute vertebral compression fracture. ??There is moderate degenerative disc disease at L5-S1. Procedure Note Alen Bob MD - 10/19/2021 EXAMINATION: XR SCOLIOSIS 6 OR MORE VIEWS HISTORY: Neck and back pain FINDINGS: Standing AP and lateral views of the entire spine using the EOS system are provided for interpretation. AP, lateral, and flexion and extension views of cervical spine spine and AP, lateral, and flexion-extension views of the lumbar spine are provided for interpretation. Comparison is made to radiographs of the 07/12/2021. There is an unchanged disc arthroplasty of C6-C7. There is minimal levocurvature of the lumbar spine. The truncal balance is normal. There is no pelvic obliquity. The alignment of the cervical spine is normal. There is mild degenerative disc disease at C5-C6. There is no acute fracture of the cervical spine. There is no listhesis of the cervical spine on flexion and extension views. There is no prevertebral soft tissue swelling. The alignment of the lumbar spine is normal. There is no listhesis of the lumbar spine on flexion and extension views. There is no acute vertebral compression fracture. There is moderate degenerative disc disease at L5-S1. IMPRESSION: 1. Unchanged disc arthroplasty at C6-C7. 2. Normal truncal balance without pelvic obliquity. 3. Moderate degenerative disc disease at L5-S1. Dictated by: Andrea Marsh MD The radiology attending physician has personally reviewed this study, and had reviewed and/or edited this written report and agrees with it. Electronically signed by: Alen Bob M.D. 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
--- OUTSIDE RECORDS SUMMARY | 2024-05-18 22:14 | XMS_ITS | Encounter Summary ---
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 Lumbosacral stenosis without neurogenic claudication Procedures XR Scoliosis 6 or More Views Michael Viveros PA [address] [place] [address] Phone: tel: fax: [address] [address] Referral ID Status Reason Start Date Expiration Date Visits Re quested Visits Authorized [id number] Closed 10/16/2021 11/15/2022 1 1 Reason for Visit * Diagnostic Imaging (Routine) - Closed Specialty Diagnoses / Procedures Referred By Contac t Referred To Contact Diagnoses Status post cervical disc replacement 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 Lumbosacral stenosis without neurogenic claudication Procedures XR Scoliosis 6 or More Views Michael Viveros PA [address] [place] [address] Phone: tel: fax: [facility] [address] [phone] Referral ID Status Reason Start Date Expiration Date Visits Re quested Visits Authorized [id number] Closed 10/16/2021 11/15/2022 1 1 Encounter Details Date Type Department Care Team (Latest Contact Info) Description 10/19/2021 8:09 AM CDT - 10/19/2021 11:59 PM CDT Hospital Encounter [id number] [address] [facility] [address] [place] [address] Status post cervical disc replacement; 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; Foraminal stenosis of lumbosacral region; Lumbosacral stenosis without neurogenic claudication Discharge Disposition: Discharge to home or self [...] on file Legal Sex Male 1:20 AM SCRUM PRODUCT OWNER Gender Identity Not on file Sexual Orientation Not on file documented as of this encounter Medications at Time of Discharge acetaminophen-code ine (TYLENOL with CODEINE #3) 300-30 mg per tablet TAKE 1 TABLET BY MOUTH EVERY 4 HOURS NEEDED FOR PAIN 03/06/2021 ALPRAZolam (XANAX) 1 mg tablet TK /2 TO 1 T PO BID PRF ANXIETY [...] (25 mg total) by mouth as needed irbesartan (AVAPRO) 300 mg tablet Take 1 [...] (Humira,CF, Pen) 40 mg/0.4 mL pen injector kitIndications:Services Account Manager hn's disease of small and large intestines with complication (HCC) Inject 0.4 mL (40 mg total) under the skin every 14 (fourteen) days Safety labs required every 3 months for med refills, labs due DEACON 2 each 08/23/2021 2 gabapentin (NEURONTIN) 300 mg capsule TAKE 1 CAPSULE(300 MG) BY MOUTH THREE TIMES DAILY 90 capsule 08/08/2021 2 hyoscyamine (LEVSIN) 0.125 mg tabletIndications: Irritable Bowel Syndrome Take 1 tablet (0.125 mg total) by mouth every 6 (six) hours as needed for cramping or diarrhea Take 1 tab PO every 6 hours as needed for spasms 120 tablet 2 08/28/2021 2 mupirocin (mupirocin) 2 % ointment Apply to each nostril 2 (two) times a day Use pea size amount in each nostril twice daily for five (5) days. After application, press sides of nose together and gently massage. 10 g 02/14/2021 2 nystatin 100,000 unit/mL suspensionIndicati ons:Esophageal yeast infection (CMS/HCC) (HCC) Take 5 ml PO 2 times daily,swish and swallow for 14 days 140 mL 2 03/28/2020 2 documented as of this encounter Discharge Disposition Disposition Code Departure Means Destination Discharge to home or self care documented in this encounter Plan of Treatment Upcoming Encounters Date Type Department Care Team (Late st Contact Info) Description 05/22/2024 10:45 AM SCRUM PRODUCT OWNER Hospital Encounter [facility] Endoscopy [address] [place] [address] Nikolay Boucher MD [address] [facility] [place] [address] 05/22/2024 10:45 AM SCRUM PRODUCT OWNER - 05/22/2024 11:15 AM SCRUM PRODUCT OWNER Surgery [facility] Endoscopy [address] [address] [address] Nikolay Boucher MD [address] [facility] [place] [address] EGD Scheduled Procedures Name Priority Associated Diagnoses Date/Ti me ESOPHAGOGASTRODUODENOSCOPY Crohn's disease of both small and large intestine with intestinal obstruction (HCC) 05/22/2024 10:45 AM SCRUM PRODUCT OWNER documented as of this encounter Procedures Procedure Name Priority Date/Time Associated Diagnosis Comments XR SCOLIOSIS 6 OR MORE VIEWS Schedule Routine, Read Routine (OP Routine) 10/19/2021 8:34 AM CDT Status post cervical disc replacement 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
--- OUTSIDE RECORDS SUMMARY | 2024-05-18 22:14 | XMS_ITS | Encounter Summary ---
Author Organization [facility] Healthcare Address [address] [place] [address] Care Team Providers Care Blueprint Assembler Name Role Phone Tip Armenta MD Primary Care Provider [phone] Eleanor Ramon MD Unavailable [phone] Reason for Referral * Diagnostic Imaging (Routine) - Closed Specialty Diagnoses / Procedures Referred By Hugo t Referred To Contact Diagnoses Status post cervical disc replacement Procedures XR Spine Cervical 2 or 3 Views Sergio Chavira MD [address] [place] [address] Phone: tel: fax: [place] [address] [place] [address] Referral ID Status Reason Start Date Expiration Date Visits Re quested Visits Authorized [id number] Closed 07/05/2021 08/04/2022 1 1 ECTOR FINISHING Reason for Visit * Diagnostic Imaging (Routine) - Closed Specialty Diagnoses / Procedures Referred By Hugo welch Referred To Contact Diagnoses Status post cervical disc replacement Procedures XR Spine Cervical 2 or 3 Views Sergio Chavira MD [address] [place] [address] Phone: tel: fax: [place] [address] [place] [phone] Referral ID Status Reason Start Date Expiration Date Visits Re quested Visits Authorized [id number] Closed 07/05/2021 08/04/2022 1 1 Encounter Details Date Type Department Care Team (Latest Contact Info) Description 07/12/2021 8:18 AM INSPECTOR FINISHING - 07/12/2021 11:59 PM INSPECTOR FINISHING Hospital Encounter [id number] [address] [facility] [address] [place] [address] Sergio Chavira MD [address] [place] [address] Status post cervical disc replacement Discharge Disposition: Discharge to home or self care Social History Tobacco Use Types Packs/Day Years Used Date Smoking Tobacco: Never Smokeless Tobacco: Never AUDIT-C Answer Date Recorded Q1: How often do you have a drink containing alc ohol? Never 03/03/2021 Average Number of Drinks Not on file 021 Q3: How often do you have si x or more drinks on one occasion? 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 Next labs due 04/2021. 2 each 2 04/12/2021 2 gabapentin (NEURONTIN) 300 mg capsule Take 1 capsule (300 mg total) by mouth 3 (three) times a day 90 capsule 07/12/2021 2 hyoscyamine (LEVSIN) 0.125 mg tabletIndications: Urinary Incontinence Take 1 tab PO every 6 hours as needed for spasms 120 tablet 5 07/18/2020 2 mupirocin (mupirocin) 2 % ointment Apply [...] st Contact Info) Description 05/22/2024 10:45 AM INSPECTOR FINISHING Hospital Encounter [facility] Endoscopy [address] [place] [address] Nikolay Boucher MD [address] [place] [address] 05/22/2024 10:45 AM INSPECTOR FINISHING - 05/22/2024 11:15 AM INSPECTOR FINISHING Surgery [facility] Endoscopy [address] [address] Nikolay Boucher MD [address] [place] [address] EGD Scheduled Procedures Name Priority Associated Diagnoses Date/Ti me ESOPHAGOGASTRODUODENOSCOPY Crohn's disease of both small and large intestine with intestinal obstruction ([facility]) 05/22/2024 10:45 AM INSPECTOR FINISHING documented as of this encounter Procedures Procedure Name Priority Date/Time Associated Diagnosis Comments XR SPINE CERVICAL 2 OR 3 VIEWS Schedule Routine, Read Routine (OP Routine) 07/12/2021 8:22 AM INSPECTOR FINISHING Status post cervical disc replacement documented in this encounter Results * XR Spine Cervical 2 or 3 Views (07/12/2021 8:22 AM INSPECTOR FINISHING) Anatomical Region Laterality Modality Spine N/A Computed Radiogr aphy 07/12/2021 8:30 AM INSPECTOR FINISHING Impressions 07/12/2021 8:30 AM INSPECTOR FINISHING 1. ??Unchanged C6-7 disc arthroplasty in expected position. Electronically signed by: Ekaterina Goldstein MD Narrative 07/12/2021 8:30 AM INSPECTOR FINISHING EXAMINATION: XR SPINE CERVICAL 2 OR 3 VIEWS HISTORY: ??C6-7 disc arthroplasty FINDINGS: 2 radiographs of the cervical spine are submitted for interpretation with comparison 03/30/2021. There is an unchanged C6-7 disc arthroplasty in expected position. No acute fracture or prevertebral soft tissue swelling is identified. The remaining disc spaces are normal. Procedure Note Kristel Goldstein MD - 07/12/2021 EXAMINATION: XR SPINE CERVICAL 2 OR 3 VIEWS HISTORY: C6-7 disc arthroplasty FINDINGS: 2 radiographs of the cervical spine are submitted for interpretation with comparison 03/30/2021. There is an unchanged C6-7 disc arthroplasty in expected position. No acute fracture or prevertebral soft tissue swelling is identified. The remaining disc spaces are normal. IMPRESSION: 1. Unchanged C6-7 disc arthroplasty in expected position. Electronically signed by: Ekaterina Goldstein MD [facility] Vladimir Chavira MD IMG XR PROCEDURES Final Re sult documented in this encounter Visit Diagnoses Diagnosis Status post cervical disc replacement Crohn's disease of both small and large intestine with intestinal obstruction (HCC) documented in this encounter Care Teams Blueprint Assembler Relationship Specialty Start Date End Date Tip Armenta MD [address] [address] PCP - General Family Medicine 03/18/19 Eleanor Ramon MD [address] [place] [address] Medical Oncologist/Core Maker Helper Hematology 07/12/20 documented as of this encounter
--- OUTSIDE RECORDS SUMMARY | 2024-05-18 22:14 | XMS_ITS | Encounter Summary ---
Author Organization [facility] Address [address] [facility] [address] [place] [address] Phone Care Team Providers Care Clinical Psychologist Private Practice Name Role Phone Tip Armenta MD Primary Care Provider [phone] Eleanor Ramon MD Unavailable [phone] Encounter Details Date Type Department Care Team (Late st Contact Info) Description 05/29/2021 Telephone [facility] [address] [facility] Medical Office Building [address] [place] [address] Christa Brenner NP [address] [place] [address] Social History Tobacco Use Types [...] on file Legal Sex Male 1:20 AM DESCRIPTIVE CATALOG LIBRARIAN Gender Identity Not on file Sexual Orientation Not on file documented as of this encounter Miscellaneous Notes * Telephone Encounter - Christa Brenner RN - 05/29/2021 5:33 PM CST Called patient and left VM in regards to moving appointment to telemed visit. Will still need cervical spine xrays. Requested call back in regards to film completion. Call back numbers provided. Call center- if patient calls please ask where he would like to have films completed and fax the order if external. Order placed. Thank you RIPTIVE CATALOG LIBRARIAN documented in this encounter Plan of Treatment Upcoming Encounters Date Type Department Care Team (Late st Contact Info) Description 05/22/2024 10:45 AM DESCRIPTIVE CATALOG LIBRARIAN Hospital Encounter [facility] Endoscopy [address] [place] [address] Nikolay Boucher MD [address] [place] [address] 05/22/2024 10:45 AM DESCRIPTIVE CATALOG LIBRARIAN - 05/22/2024 11:15 AM DESCRIPTIVE CATALOG LIBRARIAN Surgery [facility] Endoscopy [address] [place] [address] Nikolay Boucher MD [address] [place] [address] EGD Scheduled Procedures Name Priority Associated Diagnoses Date/Ti me ESOPHAGOGASTRODUODENOSCOPY Crohn's disease of both small and large intestine with intestinal obstruction (HCC) 05/22/2024 10:45 AM DESCRIPTIVE CATALOG LIBRARIAN documented as of this encounter Visit Diagnoses Not on filedocumented in this encounter Care Teams Clinical Psychologist Private Practice Relationship Specialty Start Date End Date Tip Armenta MD [address] [address] PCP - General Family Medicine 03/18/19 Eleanor Ramon MD [address] [place] [address] Medical Oncologist/Therapist Hematology 07/12/20 documented as of this encounter
--- OUTSIDE RECORDS SUMMARY | 2024-05-18 22:14 | XMS_ITS | Encounter Summary ---
Author Organization [facility] Healthcare Address [address] [place] [address] Care Team Providers Care Mandrel Maker Name Role Phone Tip Armenta MD Primary Care Provider [phone] Eleanor Ramon MD Unavailable Reason for Visit * Reason Comments Knee Pain * Auth/Cert Specialty Diagnoses / Procedures Referred By Contac t Referred To Contact Diagnoses Prepatellar bursitis History of Crohn's disease Infection of right prepatellar bursa Chronic hypertension Acute renal failure, unspecified acute renal failure type (HCC) Procedures na Referral ID Status Reason Start Date Expiration Date Visits Re quested Visits Authorized [id number] 1 1 Encounter Details Date Type Department Care Team (Latest Contact Info) Description 01/24/2022 11:18 AM CDT - 01/27/2022 6:00 PM CDT Hospital Encounter [facility] [address] [place] [id number] Shant Diaz MD [address] [place] [address] [place] [address] Michael Glasgow MD [address] [place] [address] [place] [address] Colby Mitchell MD [address] [place] [address] [place] [address] Infection of right prepatellar bursa (Primary Dx); History of Crohn's disease; Acute renal failure, unspecified acute renal failure type (HCC); Chronic hypertension Discharge Disposition: Discharge to home or self [...] on file 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 Gender Identity Not on file Sexual Orientation Not on file documented as of this encounter Last Filed Vital Signs Vital Sign Reading Time Taken Comments Blood Pressure 145/81 01/27/2022 4:29 PM CDT Pulse 73 01/27/2022 4:29 PM CDT Temperature 36.9 ??C (98.4 ??F) 01/27/2022 4:29 PM CD T Respiratory Rate 18 01/27/2022 4:29 PM CDT Oxygen Saturation 97% 01/27/2022 4:29 PM CDT Inhaled Oxygen Concentration - - Weight 99.7 kg (219 lb 12.8 oz) 022 10:15 AM CDT Height 188 cm (6' 2 ) 01/24/2022 10:15 AM CDT Body Mass Index 28.22 01/24/2022 10:15 AM CDT documented in this encounter Discharge Summaries * Colby Mitchell MD - 01/27/2022 4:44 PM CDT Inpatient Discharge Summary BRIEF OVERVIEW Admitting Provider: Michael Glasgow MD Discharge Provider: Colby Mitchell MD Primary Care Physician at Discharge: Tip Armenta MD [phone] Admission Date: 01/24/2022 Discharge Date: 01/27/2022 Primary Discharge Diagnosis: Prepatellar bursitis Secondary Discharge Diagnosis: Principal Problem: Prepatellar bursitis Active Problems: Crohn's disease of both small and large intestine (HCC) Chronic diarrhea HTN (hypertension) Stage 3a chronic kidney disease (HCC) Cellulitis Infection of right prepatellar bursa Resolved Problems: No resolved hospital problems. DETAILS OF HOSPITAL STAY Presenting Problem/History of Present Illness: Prepatellar bursitis Hospital Course: Patient presented to the hospital with history of for right knee swelling that started about 9 daysprior to admission after kneeling on a concrete and sustained small abrasion the knee. Patient was seen at the urgent care center and given a single dose of Rocephin and started on p.o. clindamycin. With no improvement patient was seen in the emergency room given single dose of vancomycin and was ask id to follow with Dr. Alejandra from Orthopedic. He was eventually seen by Orthopedic and admittedto the hospital he underwent arthrocentesis with no yield from the synovial fluid. Patient denies any fever or chills nausea or vomiting. Patient main complaint was pain associated with the lower extremity edema extending from the right knee to the right ankle. Patient has also limited range of movement with the knee due to the swelling and pain Patient was followed by Orthopedic during his stay in the hospital and MRI was done which the result is pending and he is going to follow with Orthopedic as an outpatient Patient was evaluated by Infectious Disease service and they do not think that the this is infectious process. Patient received 5 days of IV antibiotics on and of with on clear response. Most probably this is and inflammatory arthritis or serositis . Rheumatoid factor was done which was negative . LA, urine for Histoplasma antigen and TB QuantiFERON gold were ordered and should be followed bythe primary care doctor CT of scan of the right lower extremity showed diffuse continuous thickening and stranding involving the distal thigh as well as the entire leg and foot . CT abdomen and pelvis was negative for obstructing mass or lymphadenopathy Patient is stable ,patient was examined and hospital course was discussed with the patient. Discharge medicines reviewed and updated. Follow up care was discussed with the patient. All patients's questions were answered .Patient is going home and to follow with PCP and consultants as schedule Active Issues Requiring Follow-up: Test Results Pending at Discharge: Pending Labs Order Current Status LA Reflex to Quantitative and dsDNA In process CRP (acute phase) In process Erythrocyte sedimentation rate In process TB test, quantiferon gold In process Blood culture Blood Peripheral Preliminary result Blood culture Blood Peripheral Preliminary result Operative Procedures Performed: Other Procedures: Pertinent Test Results: @RESULTRCNT(24H])@ XR Knee Right 3 Views Result Date: 01/24/2022 Narrative: EXAM DESCRIPTION: XR KNEE RIGHT 3 VIEWS REASON FOR STUDY: Erythema Right knee pain x9 days. TECHNIQUE: 3 radiographic views acquired of the right knee. COMPARISON: 01/20/2022 FINDINGS: BONES/JOINTS: No acute fracture, malalignment or osseous abnormalities. Mild medial and patellofemoral c ompartment knee osteoarthritis. SOFT TISSUES: Unremarkable. OTHER: No other significant finding. IMPRESSION: No acute osseous abnormality. THIS IS AN ELECTRONICALLY VERIFIED FINAL REPORT 01/24/2022 11:34 AM - Electronically signed by Luis Gross M.D. KN: KN Report ID: [id number] Reading Location: [id number] XR Knee Right 3 Views Result Date: 01/20/2022 Narrative: EXAM DESCRIPTION: XR KNEE RIGHT 3 VIEWS REASON FOR STUDY: Anterior right knee pain and swelling. Area is hot to the touch. Patient was kneeling on ground 1.5 weeks ago on concrete and had abrasions on knee. TECHNIQUE: 3 radiographic views acquired of the right knee. COMPARISON: None available. FINDINGS: BONES/JOINTS: No acute fracture, malalignment or osseous abnormalities. Joint spaces are maintained. Small marginal osteophyte arises from the patella. SOFT TISSUES: Moderate soft tissue swelling seen over the patella. OTHER: No other significant finding. IMPRESSION: Moderate prepatellar soft tissue thickening. No acute osseous abnormality. THIS IS AN ELECTRONICALLY VERIFIED FINALREPORT 01/20/2022 2:44 AM - Electronically signed by Jesus Resendzi M.D. ML: ML Report ID: [id number] Reading Location: [id number] CT Abdomen Pelvis W Contrast Result Date: 01/25/2022 Narrative: EXAM DESCRIPTION: CT ABDOMEN PELVIS W CONTRAST REASON FOR STUDY: Right lower extremity pain and swelling. TECHNIQUE: CT scan of the abdomen and pelvis performed with intravenous and without oral contrast using helical scanning technique with dynamic intravenous contrast injection. Reconstructed coronal and sagittal MPR images reviewed. All images stored on PACS. Automated exposure control was used as a dose optimization technique for this examination. CONTRAST TYPE/DOSE: 75mL of IOVERSOL 350 MG IODINE/ML INTRAVENOUS SYRINGE injected via intravenous COMPARISON: MRI dated 2012. FINDINGS: LOWER CHEST: Nodular airspace opacity in the left lower lobe may be infectious in etiology. No pleural pericardial effusion. LIVER: Normal size. No identified cystic or solid masses. GALLBLADDER:No stones identified. No wall thickening or inflammatory changes. BILE DUCTS: No intrahepatic or extrahepatic ductal dilatation. SPLEEN: Normal size. No focal lesions. PANCREAS: No identified cystic or solid masses. No significant calcifications. No adjacent inflammation or peripancreatic fluid collections. Pancreatic duct not dilated. ADRENALS: Normal. KIDNEYS/URINARY TRACT: No identified significant cystic or solid masses. Bilateral nonobstructing kidney stones. The largest measures 0.4 cm.. No hydronephrosis or hydroureter. Symmetric enhancement. Urinary bladder is unremarkable. GI: Postsurgical changes suggestive of terminal iliac knee with ileocolonic anastomosis without complication.. No significant diverticular disease. PERITONEUM: No ascites or free air. RETROPERITONEUM: No mass or adenopathy. REPRODUCTIVE: No significant abnormality. VASCULATURE: No abdominal aortic aneurysm. 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 MUSCULOSKELETAL: No significant abnormality. OTHER: No other abnormality. IMPRESSION: 1. No findings identified to suggest the etiology of the patient's symptoms. Cavernous transformation of the portal vein 2. 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 Bilateral punctate nonobstructing kidney stones. REFERENCE: Unless otherwise specified, no follow- up imaging is recommended for incidental renal and adrenal lesions per consensus recommendations based on imaging criteria. Further lab evaluation could be pursued based on clinical findings. Management of the Incidental Renal Mass on CT: A White Paper of the ACR Incidental Findings Committee. J Am Linda Radiol. 2018 Jun;15(2):264-273. Management of Incidental Adrenal Masses: A White Paper of the ACR Incidental Findings Committee. J Am Linda Radiol. 2017 Dec;14(8):1038- 1044. THIS IS AN ELECTRONICALLY VERIFIED FINAL REPORT 01/25/2022 6:04 PM - Electronically signed by Oscar Long M.D. JA: ANTONINA Report ID: [id number] Reading Location: [id number] US VEIN DUPLEX LOWER EXTREMITY RIGHT LIMITED, UNILATERAL Result Date: 01/25/2022 Narrative: Amphion Job ID: [id number] Amphion Document ID: [id number] Dictated date/time: RIGHT LOWER EXTREMITY VENOUS DUPLEX REASON FOR EXAM Erythema. FINDINGS ON THE RIGHT The rightcommon femoral, femoral, popliteal, posterior tibial, peroneal, and great saphenous demonstrate spontaneous phasic flow that augments and are compressible. INTERPRETATION No evidence of deep or superficial venous thrombosis in the right lower extremity. Job ID/Internal Job ID: [id number] CT Entire Lower Extremity Right W Contrast Result Date: 01/25/2022 Narrative: EXAM DESCRIPTION: CT ENTIRE LOWER EXTREMITY RIGHT W CONTRAST REASON FOR STUDY: Right knee pain and swelling for few days after small scratch to knee. TECHNIQUE: Multidetector CT scan of the right lower extremity was performed after intravenous contrast. Coronal and sagittal images were reconstructed. Dose modulation adjustment of the mA and/or kV has been performed per [facility] protocols according to patient size and indication CONTRAST TYPE/DOSE: 75mL of IOVERSOL 350 MG IODINE/ML INTRAVENOUS SYRINGE injected via intravenous COMPARISON: Radiograph dated January 24, 2022 FINDINGS: Bones: No fracture. No dislocation. Soft Tissues: There is nonspecific cutaneous thickening and subcutaneous stranding involving the distal thigh as well as the entire leg and foot. This is most pronouncedanterior to the patella. A drainable fluid collection is not identified. Other: No other finding. IMPRESSION: 1. Diffuse cutaneous thickening and subcutaneous stranding involving the distal thigh as w ell as the entire leg and foot. This is compatible with cellulitis in the appropriate clinical setting. This is most pronounced anterior to the patella and may represent a component of bursitis potentially infectious. 2. A drainable fluid collection is not to suggest an abscess. THIS IS AN ELECTRONICALLY VERIFIED FINAL REPORT 01/25/2022 5:58 PM - Electronically signed by Oscar Reese M.D. JA: ANTONINA Report ID: [id number] Reading Location: [id number] Discharge Details Physical Exam at Discharge: Discharge Condition: stable Pulse: 73 Resp: 18 BP: 145/81 Temp: 36.9 ??C (98.4 ??F) Weight: 99.7 kg (219 lb 12.8 oz) Pertinent Exam Findings at Discharge: GENERAL: Well-appearing, well-nourished and in no acute distress. HEAD: Atraumatic, normocephalic. EYES: Pupils equal round and reactive to light, extraocular movements intact, sclera anicteric, conjunctiva are normal. ENT: TMs normal, nares patent, oropharynx clear without exudates. Moist mucous membranes. NECK: Normal range of motion, supple without lymphadenopathy or JVD. LUNGS: Breath sounds clear to auscultation bilaterally and equal. No wheezes rales or rhonchi. HEART: Regular rate and rhythm without murmurs, rubs or gallops. ABDOMEN: Soft, nontender, normoactive bowel sounds. No guarding, no rebound. No masses appreciated. EXTREMITIES: Normal range of motion, no pitting or edema. No clubbing or cyanosis. NEUROLOGICAL: Cranial nerves II through XII grossly intact. Normal speech, normal gait. PSYCH: Normal mood, normal affect. SKIN: Warm, Dry, normal turgor, no rashes or lesions noted. Discharge Disposition: Discharge to home or self care Code Status at Discharge: Full Code Discharge Instructions: Activity Instructions Discharge Activity: Stairs Per orthopedic instructions Discharge Activity: Walking Per orthopedic instructions Diet Instructions Adult Discharge Diet Diet Type: Return to previous diet Call RD office at [phone] with any nutrition-related questions. Other Instructions Call provider for: Temperature -Temperature greater than 101 degrees F Call provider for: difficulty breathing or chest pain Call provider for: extreme fatigue Call provider for: hives Call provider for: persistent dizziness or light-headedness Call provider for: persistent nausea or vomiting Call provider for: redness, tenderness, or signs of infection (pain, swelling, redness, odor or green/yellow discharge around incision site) Call provider for: severe uncontrolled pain Call provider for: headache, visual disturbances, weakness and speech changes . Discharge Medications: Your medication list CONTINUE taking these medications acetaminophen-codeine 300-30 mg per tablet Commonly known as: TYLENOL with CODEINE #3 ALPRAZolam 1 mg tablet Commonly known as: XANAX amitriptyline 10 mg tablet Commonly known as: ELAVIL amLODIPine 5 mg tablet Commonly known as: NORVASC BD SafetyGlide Syringe 3 mL 23 x 1 syringe Generic drug: syringe with needle Cialis 20 mg tablet Generic drug: tadalafiL cyanocobalamin 1,000 mcg/mL injection Commonly known as: Vitamin B-12 diphenoxylate-atropine 2.5-0.025 mg per tablet Commonly known as: LOMOTIL folic acid 1 mg tablet Commonly known as: FOLVITE Humira(CF) Pen 40 mg/0.4 mL pen injector kit Inject 0.4 mL (40 mg total) under the skin every 14 (fourteen) days Safety labs required every 3 months for med refills, labs needed DEACON (overdue). Must be completed for any further refills to be authorized. Generic drug: adalimumab hydroCHLOROthiazide 25 mg tablet Commonly known as: HYDRODIURIL HYDROcodone-acetaminophen 7.5-325 mg per tablet Commonly known as: NORCO hyoscyamine 0.125 mg tablet TAKE 1 TABLET(0.125 MG) BY MOUTH EVERY 6 HOURS NEEDED FOR CRAMPING OR DIARRHEA/ SPASMS Commonly known as: LEVSIN irbesartan 300 mg tablet Commonly known as: AVAPRO lansoprazole 15 mg capsule Commonly known as: PREVACID magnesium oxide,aspartate,citr 400 mg magnesium capsule montelukast 10 mg tablet Commonly known as: SINGULAIR ondansetron 8 mg tablet Commonly known as: ZOFRAN testosterone cypionate 200 mg/mL injection Commonly known as: DEPO-TESTOTERONE zolpidem 10 mg tablet Commonly known as: AMBIEN Outpatient Follow-Up: Future Appointments Date Time Provider Department Center 02/22/2022 10:45 AM Michael Viveros PA [id number] Time Spent on Discharge Process: I have spent 35 minutes on discharge planning activities. Time spent was on Coordination of care, Follow up , Counselling with patient/family, and discharge exam. Colby Mitchell MD 01/27/2022 documented in this encounter Discharge Instructions * Discharge Instr - Diet* Mary Watt RD - 01/26/2022 1:[address] office at [phone] with any nutrition-related questions. * Attachments The following attachments cannot be sent through Care Everywhere. 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 Must be completed for any further refills to be authorized. 2 each 11/29/2021 2 documented as of this encounter Discharge Disposition Disposition Code Departure Means Destination Discharge to home or self care documented in this encounter Progress Notes * Kenyatta Meyer, [facility] - 01/27/2022 1:02 PM CDT Vancomycin Pharmacokinetics Consult and Monitoring Mello Herbert is a 56 y.o. male patient admitted to [address] for primary dx Prepatellar bursitis [M70.40] History of Crohn's disease [Z87.19] Infection of right prepatellar bursa [M71.161] Chronic hypertension [I10] Acute renal failure, unspecified acute renal failure type (HCC) [N17.9] Cellulitis [L03.90]. Pharmacy service has been consulted for vancomycin dosing and monitoring. Therapy Summary: Indication: bursitis Start Date: 01/24 Microbiology: Date Test Results 01/20 Blood cx x 2 No growth final 01/24 Blood culture x2 NGTD Other ordered antimicrobial(s) (including start/stop dates): Antimicrobial Name Antimicrobial Dose & Frequency Start Date Stop Date Rocephin 2g q 24 h 01/24 Recent Dosing History: Date Dosing Regimen Administration Time(s) Pertinent Levels [Trough/Random] (mcg/mL) Time (hrs) Between Last Dose & Level Comments 01/24 2000 mg x 1 loading dose 1233 01/25 1500 mg q12h 0000 (0029) 1200 (1159) 15.1 @ 2239 01/26 1500 mg q12h 0000 (0109) 1200 (1231) 01/27 0000 (2346) 1200 (1144) 19.1 (1133) 01/28 1250 mg q12h 0000 () 1200 () Tr 2300 Dosing Considerations: Body Habitus: Height: Ht Readings from Last 1 Encounters: 01/24/22 188 cm (6' 2 ) Weight: Wt Readings from Last 1 Encounters: 01/24/22 99.7 kg (219 lb 12.8 oz) Any amputations? No BMI: BMI Readings from Last 1 Encounters: 01/24/22 28.22 kg/m?? --> BMI >35? No. Renal Function: Lab Results Component Value Date CREATININE 1.30 01/27/2022 CREATININE 1.10 01/26/2022 CREATININE 1.30 01/25/2022 CREATININE 1.40 (H) 01/24/2022 CREATININE 1.40 (H) 01/20/2022 CREATININE 1.60 (H) 02/17/2021 CREATININE 1.42 (H) 02/10/2021 Baseline SCr (mg/dL) prior to admission/vancomycin therapy: 1.4 Dialysis: N/A Other agents ordered that could contribute to nephrotoxicity of vancomycin (ex. AMG, NSAIDs, IV contrast, amphotericin B, cyclosporine, diuretics, etc.)? No Pharmacokinetic Analysis: Half life (hours): 9.4 Expected peak (mcg/mL): 33.2 Expected trough (mcg/mL): 15.5 [goal: 10-20] Expected Vd (L): 69 Weight-based dosing of regimen (mg/kg based on actual body weight): 12.5 mg/kg Assessment/Plan 1) Renal assessment --- Calculated CrCl (mL/min): 73 Renal status: Renal function appears stable at this time. Will continue to monitor closely. 2) Dosing plan --- Will decrease regimen to 1250 mg q 12 h. 3) Anticipated duration of therapy --- To be determined 4) Labs ordered --- Next vancomycin level: 01/28 @ 2300 Next BMP/SCr: daily 5) Pharmacy will continue to follow patient's clinical progress throughout admission. Will continueto monitor labs and adjust doses accordingly. Thank you for the opportunity to participate in the care of this patient. Kenyatta Meyer PharmD * Stephen Morejon DO - 01/26/2022 3:58 PM CDT Daily Progress Subjective Interval History: Patient denies any acute issues. Pain unchanged. No fevers or chills. Objective Vitals: 24hr Min/Max: Temp Min: 36.6 ??C (97.8 ??F) Max: 37.6 ??C (99.7 ??F) Pulse Min: 60 Max: 81 BP Min: 147/74 Max: 165/92 Resp Min: 16 Max: 18 SpO2 Min: 96 % Max: 97 % Most Recent : Vitals: 01/26/22 1507 BP: 147/74 Pulse: 60 Resp: 18 Temp: 36.8 ??C (98.3 ??F) SpO2: 96% I/O last 2 completed shifts: In: 500 [P.O.:240; I.V.:10; IV Piggyback:250] Out: - I/O this shift: In: 20 [IV Piggyback:20] Out: - Physical Exam Exam of the right leg with no erythema. Diffuse soft tissue swelling. He is able tolerate range of motion of the right knee. He continues to have tenderness to his quadriceps insertion on the patella. Gross motor sensory intact. Assessment/Plan Principal Problem: Prepatellar bursitis Active Problems: Crohn's disease of both small and large intestine (HCC) Chronic diarrhea HTN (hypertension) Stage 3a chronic kidney disease (HCC) Cellulitis Infection of right prepatellar bursa Plan: Patient was seen earlier today by Infectious Disease. Low concerns for infection. Further labs pending for gout. No growth on blood cultures thus far. MRI scheduled for tomorrow of right knee. Discussed anti-inflammatories for quadriceps tendinitis. Patient is okay to DC from orthopedic standpoint.He may follow up with me in clinic in the next 2-3 weeks. * Jamir Ogden - 01/26/2022 3:04 PM CDT Attempted to visit patient but was not in the room at the time. Follow up visit might be needed. * Michael Glasgow MD - 01/26/2022 1:58 PM CDT General Medicine Daily Progress SUBJECTIVE Patient admitted from ortho clinic with concern for right lower extremity swelling. Started on broad spectrum antibiotics due to possible prepatellar bursitis v cellulitis. Duplex US did not show evidence of DVT. CT abdomen and LE showing diffuse cutaneous thickening and subcutaneous stranding involving the distal thigh as well as the entire leg and foot. Most pronounced anterior to the patella and may represent a component of bursitis potentially infectious. ID consulted for assistance in management. He is upset about the lack of symptom improvement. Pain is still at a 5 with medications and he does not want to be on medications. Does not feel like we are running enough tests. He would like to see another Hospitalist tomorrow. He states he believes his 's intervention caused me to order theCT yesterday. Afebrile BP mildly elevated Cr 1.30, stable WBC 8.0 OBJECTIVE Vitals: 24hr Min/Max: Temp Min: 36.6 ??C (97.8 ??F) Max: 37.6 ??C (99.7 ??F) Pulse Min: 66 Max: 81 BP Min: 155/86 Max: 165/92 Resp Min: 16 Max: 18 SpO2 Min: 96 % Max: 97 % Most Recent : Vitals: 01/26/22 1110 BP: 165/92 Pulse: 81 Resp: 18 Temp: 36.8 ??C (98.3 ??F) SpO2: 97% I/O last 2 completed shifts: In: 500 [P.O.:240; I.V.:10; IV Piggyback:250] Out: - I/O this shift: In: 20 [IV Piggyback:20] Out: - Physical Exam: General: Not in apparent distress, AAOx3 Heart: RRR, no mrg Lungs: CTAB, non-labored on room air Abdomen: BS+, Soft, non-tender, non-distended Psych: Appropriate mood and affect Neuro: CN II-XII grossly intact, moving all 4 extremities spontaneously Ext: diffuse right lower extremity swelling (similar to prior), no erythema Lab/Current Medication Review: Recent Results (from the past 24 hour(s)) Vancomycin level trough Collection Time: 01/25/22 10:39 PM Result Value Ref Range Vancomycin trough 15.1 10.0 - 20.0 mcg/mL CBC with auto differential Collection Time: 01/26/22 4:17 AM Result Value Ref Range WBC 7.4 3.8 - 9.9 K/cumm Hgb 12.2 (L) 13.0 - 17.5 g/dL Hct 38.5 (L) 38.9 - 50.3 % Plt 230 150 - 400 K/cumm MPV 9.6 9.1 - 12.3 fL RBC 4.52 4.30 - 5.80 M/cumm MCV 85.2 81.3 - 96.4 fL MCH 27.0 (L) 27.1 - 33.3 pg MCHC 31.7 (L) 32.3 - 35.7 g/dL RDW CV 14.1 11.1 - 14.9 % RDW SD 43.7 35.7 - 48.1 fL NRBC abs 0.00 0.00 - 0.01 K/cumm Comprehensive metabolic panel Collection Time: 01/26/22 4:17 AM Result Value Ref Range Sodium 140 135 - 145 mmol/L Potassium, pl 3.7 3.3 - 4.9 mmol/L Chloride 105 97 - 110 mmol/L CO2 29 22 - 32 mmol/L Anion gap 6 2 - 15 mmol/L BUN 9 8 - 25 mg/dL Creatinine 1.10 0.80 - 1.30 mg/dL Glucose 101 70 - 199 mg/dL Calcium 8.3 (L) 8.5 - 10.3 mg/dL Bilirubin, total 0.4 0.1 - 1.2 mg/dL Protein, pl 6.6 6.5 - 8.5 g/dL Albumin 3.8 3.5 - 5.0 g/dL Alk phos 84 40 - 130 Units/L ALT 10 7 - 55 Units/L AST 14 10 - 50 Units/L Differential, auto Collection Time: 01/26/22 4:17 AM Result Value Ref Range Neutrophil abs 4.2 1.7 - 6.5 K/cumm Imm gran abs 0.0 0.0 - 0.1 K/cumm Lymphocyte abs 1.9 0.8 - 3.3 K/cumm Monocyte abs 0.8 0.2 - 0.8 K/cumm Eosinophil abs 0.4 0.0 - 0.5 K/cumm Basophil abs 0.0 0.0 - 0.1 K/cumm Neutrophil pct 57.2 % Imm gran pct 0.3 % Lymphocyte pct 25.4 % Monocyte pct 10.6 % Eosinophil pct 6.0 % Basophil pct 0.5 % eGFR Collection Time: 01/26/22 4:17 AM Result Value Ref Range eGFR 78 mL/min/1.73 m2 Current Facility-Administered Medications Medication Dose Route Frequency Provider Last Rate Last Admin acetaminophen (TYLENOL) tablet 650 mg 650 mg oral Q4H PRN Lucero, Maria E G., [employer]ER 650 mg at ALPRAZolam (XANAX) tablet 0.5 mg 0.5 mg oral BID PRN Lucero, Maria E G., [employer] amitriptyline (ELAVIL) tablet 10 mg 10 mg oral Nightly Lucero, Maria E G., [employer]ER amLODIPine (NORVASC) tablet 5 mg 5 mg oral QAM Lucero, Maria E G., [employer]ER 5 mg at 01/26/22 0858 sodium chloride 0.9% flush 0.5-20 mL 0.5-20 mL intra-catheter Q8H TERRELL Lucero, Maria E G., [employer]ER 10 mL at 01/26/22 0701 And sodium chloride 0.9% flush 0.5-20 mL 0.5-20 mL intra-catheter PRN Lucero, Maria E G., [employer]OVING [employer] YARN COL[employer] CHECKER And Carrier Fluids for Secondary Infusion - 0.9% Sodium Chloride 30 mL intravenous PRN Lucero, Maria E G., [employer] cefTRIAXone (ROCEPHIN) 2,000 mg/20 mL in sterile water (premix) 2,000 mg 2,000 mg intravenous Q24H TERRELL Lucero, Maria E G., [employer]ER 2,000 mg at 01/26/22 0858 diphenoxylate-atropine (LOMOTIL) 2.5-0.025 mg per tablet 1 tablet 1 tablet oral TID PRN Maria E Lucero, [employer] CHECKER [Held by Provider] enoxaparin (LOVENOX) syringe 40 mg 40 mg subcutaneous Daily- 2100 AllisonG. Nic, [employer]ING [employer]ER folic acid (FOLVITE) tablet 1 mg 1 mg oral QAM Maria E Lucero, [employer] CHECKER 1 mg at 01/26/22 0858 HYDROcodone-acetaminophen (NORCO) 7.5-325 mg per tablet 1 tablet 1 tablet oral Q6H PRN Maria E Lucero, [employer] 1 tablet at 01/26/22 0701 hyoscyamine (LEVSIN) tablet 125 mcg 125 mcg oral QID PRN Maria E Lucero, [employer]ER losartan (COZAAR) tablet 100 mg 100 mg oral Daily Maria E Lucero, [employer]OVING [employer]ER 100 mg at 01/26/22 0858 nystatin 100,000 unit/mL oral suspension 500,000 Units 500,000 Units swish & swallow QID Maria E Lucero, [employer]ER 500,000 Units at 01/26/[address] (PROTONIX) extended release tablet 40 mg 40 mg oral Daily Maria E Lucero, [employer] 40mg at 01/26/22 0858 prochlorperazine (COMPAZINE) tablet 5 mg 5 mg oral Q6H PRN Maria E Lucero, [employer] Or prochlorperazine (COMPAZINE) injection 5 mg 5 mg intravenous Q6H PRN Maria E Lucero, [employer]ER vancomycin 1500 mg/250 mL in sodium chloride 0.9% (premix) 1,500 mg 15 mg/kg intravenous Q12H Maria E Lucero, [employer]ER 1,500 mg at 01/26/22 1231 zolpidem (AMBIEN) tablet 5 mg 5 mg oral Nightly PRN Maria E Lucero, [employer] A/P: Principal Problem: Prepatellar bursitis Active Problems: Crohn's disease of both small and large intestine (HCC) Chronic diarrhea HTN (hypertension) Stage 3a chronic kidney disease (HCC) Cellulitis Infection of right prepatellar bursa Resolved Problems: No resolved hospital problems. RLE Swelling, Possible Cellulitis v prepatellar bursitis - CT abdomen pelvis unremarkable, CT lower extremity with diffuse cutaneous thickening and subcutaneous stranding involving the distal thigh as well as entire leg and foot - Infectious Disease recommendations appreciated - feels less likely cellulitis - Orthopedic surgery recommendations appreciated - Hold amlodipine though would expect bilateral lower extremity swelling if causative etiology CKD 3a Essential Hypertension - continue home medications - monitor blood pressure - continue losartan - hold amlodipine given leg swelling - start low dose thiazide Case discussed with Case Management and Devulcanizer Head Medical complexity/risk:level 3: 36 min spent and > 50% counseling/coordination of care Voice recognition software MModal Fluency Direct may have been used dictate and transcribe this document. Research And Development Director variances may occur. Despite proofreading, typographical errors may occur. Michael Glasgow MD 01/26/2022 1:58 PM * Yoselin Styles RN - 01/26/2022 11:14 AM CDT CM Initial Assessment Interview Note Information Obtained From: Patient (01/26/221112) Admission Source: ED Impression: Pt presented with c/o persistent pain and edema to right knee. Ortho sent to ED for IV abx and us. Plan Includes: ID consulted. IV rocephin, vancomycin. Ortho following. Primary Care Provider: Tip Armenta MD Prior to Admission: Primary Caregiver: Self Support System: Spouse/Significant Other Durable Medical Equipment: None Living Arrangements: Spouse/significant other Type of Residence: Private residence (01/26/221112) Patient expects to be Discharged to: Private residence, (01/26/221112) Patient's Identified Problem/Goal Problem: Ensure acute medical needs are met and that patient has a safe discharge plan. Goal: Secure a discharge plan that patient/family are agreeable with and ensure patient has continuum of care. Case management will follow for discharge planning and send referrals as needed. Goals include: To assure continuity of care, To maximize coping skills, To assure patient is in a safe environment and To assure access to community resources. Plan includes: 1. Collaboration with patient, MD, direct care nurse, Devulcanizer Head, and other members of the health care team to assure needed interventions completed. 2. Return patient to optimal level of self-care post discharge. 3. [facility] will follow for Discharge Planning - interventions as needed 4. Anticipated level of care at discharge 5. Planned Discharge Disposition Yoselin Styles RN * Michael Glasgow MD - 01/25/2022 6:19 PM CDT General Medicine Daily Progress SUBJECTIVE Patient reports pain somewhat better. Still has some knee pain. No fever. Leg appears less swollen.Patient's wants a test for gout. Upset that the patient was not seen earlier today and they were given no guidance. Concerned about the high since admission as they are a 1 income family. Afebrile Cr 1.30, stable WBC 8.0 OBJECTIVE Vitals: 24hr Min/Max: Temp Min: 36.9 ??C (98.4 ??F) Max: 37.6 ??C (99.7 ??F) Pulse Min: 74 Max: 86 BP Min: 126/67 Max: 160/93 Resp Min: 17 Max: 18 SpO2 Min: 94 % Max: 96 % Most Recent : Vitals: 01/25/222028 BP: 155/86 Pulse: 76 Resp: 17 Temp: 37.6 ??C (99.7 ??F) SpO2: 96% I/O last 2 completed shifts: In: 722 [P.O.:462; I.V.:10; IV Piggyback:250] Out: - No intake/output data recorded. Physical Exam: General: Not in apparent distress, AAOx3 Heart: RRR, no mrg Lungs: CTAB, non-labored on room air Abdomen: BS+, Soft, non-tender, non-distended Psych: Appropriate mood and affect Neuro: CN II-XII grossly intact, moving all 4 extremities spontaneously Ext: diffuse right lower extremity swelling, improved from prior, no erythema Lab/Current Medication Review: Recent Results (from the past 24 hour(s)) CBC with auto differential Collection Time: 01/25/22 8:46 AM Result Value Ref Range WBC 8.0 3.8 - 9.9 K/cumm Hgb 12.5 (L) 13.0 - 17.5 g/dL Hct 40.8 38.9 - 50.3 % Plt 232 150 - 400 K/cumm MPV 9.8 9.1 - 12.3 fL RBC 4.71 4.30 - 5.80 M/cumm MCV 86.6 81.3 - 96.4 fL MCH 26.5 (L) 27.1 - 33.3 pg MCHC 30.6 (L) 32.3 - 35.7 g/dL RDW CV 14.2 11.1 - 14.9 % RDW SD 45.1 35.7 - 48.1 fL NRBC abs 0.00 0.00 - 0.01 K/cumm Comprehensive metabolic panel Collection Time: 01/25/22 8:46 AM Result Value Ref Range Sodium 137 135 - 145 mmol/L Potassium, pl 4.6 3.3 - 4.9 mmol/L Chloride 103 97 - 110 mmol/L CO2 28 22 - 32 mmol/L Anion gap 6 2 - 15 mmol/L BUN 9 8 - 25 mg/dL Creatinine 1.30 0.80 - 1.30 mg/dL Glucose 96 70 - 199 mg/dL Calcium 8.5 8.5 - 10.3 mg/dL Bilirubin, total 0.6 0.1 - 1.2 mg/dL Protein, pl 6.7 6.5 - 8.5 g/dL Albumin 3.9 3.5 - 5.0 g/dL Alk phos 93 40 - 130 Units/L ALT 10 7 - 55 Units/L AST 16 10 - 50 Units/L Differential, auto Collection Time: 01/25/22 8:46 AM Result Value Ref Range Neutrophil abs 5.5 1.7 - 6.5 K/cumm Imm gran abs 0.0 0.0 - 0.1 K/cumm Lymphocyte abs 1.3 0.8 - 3.3 K/cumm Monocyte abs 0.7 0.2 - 0.8 K/cumm Eosinophil abs 0.4 0.0 - 0.5 K/cumm Basophil abs 0.1 0.0 - 0.1 K/cumm Neutrophil pct 68.9 % Imm gran pct 0.3 % Lymphocyte pct 16.1 % Monocyte pct 8.6 % Eosinophil pct 5.5 % Basophil pct 0.6 % eGFR Collection Time: 01/25/22 8:46 AM Result Value Ref Range eGFR 64 mL/min/1.73 m2 Erythrocyte sedimentation rate Collection Time: 01/25/22 8:46 AM Result Value Ref Range Erythrocyte sedimentation rate 14 1 - 20 mm/hr CRP (acute phase) Collection Time: 01/25/22 8:46 AM Result Value Ref Range CRP 21.2 (H) <=10.0 mg/L Current Facility-Administered Medications Medication Dose Route Frequency Provider Last Rate Last Admin acetaminophen (TYLENOL) tablet 650 mg 650 mg oral Q4H PRN Maria E Lucero., [employer] 650 mg at ALPRAZolam (XANAX) tablet 0.5 mg 0.5 mg oral BID PRN Maria E Lucero, [employer] amitriptyline (ELAVIL) tablet 10 mg 10 mg oral Nightly Maria E Lucero, [employer]ER amLODIPine (NORVASC) tablet 5 mg 5 mg oral QAM Maria E Lucero, [employer] 5 mg at 01/25/22 0848 sodium chloride 0.9% flush 0.5-20 mL 0.5-20 mL intra-catheter Q8H TERRELL Maria E Lucero., [employer] 10 mL at 01/25/22 1250 And sodium chloride 0.9% flush 0.5-20 mL 0.5-20 mL intra-catheter PRN Maria E Lucero, ROVING [employer] CHECKER And Carrier Fluids for Secondary Infusion - 0.9% Sodium Chloride 30 mL intravenous PRN Maria E Lucero, [employer]ER cefTRIAXone (ROCEPHIN) 2,000 mg/20 mL in sterile water (premix) 2,000 mg 2,000 mg intravenous Q24H TERRELL Maria E Lucero, [employer]ER 2,000 mg at 01/25/22 0847 diphenoxylate-atropine (LOMOTIL) 2.5-0.025 mg per tablet 1 tablet 1 tablet oral TID PRN Maria E Lucero, R[employer] CHECKER [Held by Provider] enoxaparin (LOVENOX) syringe 40 mg 40 mg subcutaneous Daily- 2100 AllisonG. Nic, [employer]ER folic acid (FOLVITE) tablet 1 mg 1 mg oral QAM Maria E Lucero, [employer]ER 1 mg at 01/25/22 0848 HYDROcodone-acetaminophen (NORCO) 7.5-325 mg per tablet 1 tablet 1 tablet oral Q6H PRN Maria E Lucero, [employer] 1 tablet at 01/25/22 1921 HYDROmorphone (DILAUDID) injection 0.5 mg 0.5 mg intravenous Q3H PRN Maria E Lucero, [employer] 0.5 mg at 01/24/222156 hyoscyamine (LEVSIN) tablet 125 mcg 125 mcg oral QID PRN Maria E Lucero, [employer] losartan (COZAAR) tablet 100 mg 100 mg oral Daily Maria E Lucero, [employer]ER 100 mg at 01/25/22 0848 nystatin 100,000 unit/mL oral suspension 500,000 Units 500,000 Units swish & swallow QID Maria E Lucero, [employer]ER 500,000 Units at 01/25/[address] (PROTONIX) extended release tablet 40 mg 40 mg oral Daily Maria E Lucero, [employer] 40mg at 01/25/22 0848 prochlorperazine (COMPAZINE) tablet 5 mg 5 mg oral Q6H PRN Maria E Lucero, [employer] Or prochlorperazine (COMPAZINE) injection 5 mg 5 mg intravenous Q6H PRN Maria E Lucero, [employer]ER vancomycin 1500 mg/250 mL in sodium chloride 0.9% (premix) 1,500 mg 15 mg/kg intravenous Q12H Maria E Lucero, [employer] 1,500 mg at 01/25/22 1159 zolpidem (AMBIEN) tablet 5 mg 5 mg oral Nightly PRN Maria E Lucero, [employer] A/P: Principal Problem: Prepatellar bursitis Active Problems: Crohn's disease of both small and large intestine (HCC) Chronic diarrhea HTN (hypertension) Stage 3a chronic kidney disease (HCC) Resolved Problems: No resolved hospital problems. RLE Swelling, Possible Cellulitis v prepatellar bursitis CT abdomen pelvis and right lower extremity ordered to rule out lymphadenopathy or other cause of decreased lymphatic drainage. Will monitor for evidence of contrast induced nephropathy Consult Infectious Disease Patient is on a TNF alpha inhibitor which could be affecting presentation of a cellulitis Recheck ESR and CRP Orthopedic surgery recommendations appreciated Unlikely gout CKD 3a Essential Hypertension - continue home medications - monitor blood pressure Case discussed with Case Management and Devulcanizer Head Medical complexity/risk:level 3: 45 min spent and > 50% counseling/coordination of care Voice recognition software MModal Fluency Direct may have been used dictate and transcribe this document. Research And Development Director variances may occur. Despite proofreading, typographical errors may occur. Michael Glasgow MD 01/25/2022 8:40 PM * Sarah Horowitz, OT - 01/25/2022 10:03 AM CDT Occupational Therapy 01/25/22 1003 General Chart Reviewed Yes Session Type Evaluation Safe Environment Arm Band Checked;Call Light within Reach;Notified RN;Patient found in Supine;Overbed Table within Reach;Bed in Lowest Position with Wheels locked Subjective Agreeable to Therapy Additional Pertinent History prepatellar bursitis - septic bursitis - IV antibx (crohn's - small bowel resection, anemia, anxiety/depression) Family/Caregiver Present No Occupational Therapy-Patient Goal plans home at d/g Current Functional Status OT Functional Mobility independent OT Self Care independent OT Cognition intact OT Communication intact Home Living Type of Home House Home Layout Two level;Bed/bath upstairs Home Access Stairs to enter without rails Entrance Stairs-Number of Steps 2 Bathroom Shower/Tub Walk-in shower with threshold Bathroom Toilet Standard Home Mobility Equipment None Prior Function Level of [place] Independent with ADLs;Independent functional transfers;Independent with ambulation;Independent with homemaking with ambulation Lives With Spouse Receives Help From Spouse/Significant other Driving Yes Mode of Transportation Car;Driven by self ADL Assistance Independent Instrumental ADL (IADL) Assistance Independent 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) Fall within the last 6 months No ADL ADLS (WDL) WFL LE Dressing LE Dressing: Where assessed Sitting;Edge of bed LE Dressing: Level of assistance Independent LE Dressing: Assistance with Don/doff L shoe;Don/doff R shoe Functional Transfers Functional Transfer: Level of assistance Standby Assist (initial retropulsion - self corrects) Pain Assessment Pain Assessment 0-10 Pain Score 5 - Moderate pain Pain Location Knee Pain Orientation Right Pain Interventions Medication (See MAR) Response to Interventions Partial pain relief Activity Tolerance Endurance Endurance does not limit participation in activity Cognition Orientation Oriented X4 (person, place, time, situation) Compliance/Behavior Easy to engage Reach/Grasp RUE Reach WFL LUE Reach WFL RUE Grasp Gross grasp LUE Grasp Gross grasp Postural Control Postural Control WFL Static Sitting Balance Static Sitting-Sitting Surface Bed Static Sitting-Level of Assistance Independent Dynamic Sitting Balance Dynamic Sitting-Sitting Surface Bed Dynamic Sitting-Level of Assistance Independent Static Standing Balance Static Standing-Standing Surface Floor Static Standing-Level of Assistance Distant supervision (initial retropulsion) Dynamic Standing Balance Dynamic Standing-Standing Surface Floor Dynamic Standing-Level of Assistance Distant supervision Bed Mobility Bed Mobility (independent) Transfers Transfer (independent/SBA) Transfer 1 Trials/Comments 1 functional mobility in leos with indep/SBA RUE Assessment RUE Assessment WFL LUE Assessment LUE Assessment WFL Plan Plan If this is the last note, consider this the discharge summary (Functional ADL performance. No skilled interventions indicated.) Recommendation/Plan OT Recommendation Home with family * Paige Ortiz, PT - 01/25/2022 9:55 AM CDT Physical Therapy 01/25/22 0955 General Chart Reviewed Yes Session Type Evaluation PT Received On 01/25/22 Safe Environment Arm Band Checked;Call Light within Reach;Patient found in Supine;Overbed Table within Reach Subjective Agreeable to Therapy Subjective Comment Pt does not feel that he needs help w ambulation. Additional Pertinent History Dx: prepatellar bursitis Family/Caregiver Present No Physical Therapy-Patient Goal Disch home today Precautions Precautions None Home Living Type of Home House Home Layout Two level;Bed/bath upstairs Home Access Stairs to enter without rails Entrance Stairs-Rails None Entrance Stairs-Number of Steps 2 Bathroom Shower/Tub Walk-in shower with threshold Bathroom Toilet Standard Home Mobility Equipment None Prior Function Level of [place] Independent with homemaking with ambulation;Independent functional transfers;Independent with ADLs Lives With Spouse Receives Help From Spouse/Significant other Driving Yes Mode of Transportation Car;Driven by self ADL Assistance Independent Fall within the last 6 months No Pain Assessment Pain Assessment 0-10 Pain Score 5 - Moderate pain Pain Location Knee Pain Orientation Right Cognition Orientation Oriented X4 (person, place, time, situation) Compliance/Behavior Easy to engage Bed Mobility 1 Bed Mobility From 1 Supine Bed Mobility Type 1 To and from Bed Mobility to 1 Edge of bed Level of Assistance 1 Independent Transfer 1 Transfer From 1 Sit Transfer Type 1 To and from Transfer to 1 Stand Technique 1 Sit to stand;Stand to sit Transfer Device 1 No device Transfer Level of Assistance 1 Independent Ambulation 1 Distance (ft) 1 400 Surface 1 Level tile Device 1 No device Assistance 1 Independent Quality of Gait 1 slightly antalgic Ambulation Comments 1 vebal cues for heel strike and push off RUE Assessment RUE Assessment WFL LUE Assessment LUE Assessment WFL RLE Assessment RLE Assessment X AROM RLE (degrees) R Knee Flexion 70 (in sitting) R Knee Extension 10 LLE Assessment LLE Assessment WFL PT Treatment/Exercise Comments PT Treatment/Exercise Comments educated to avoid putting pillow under knee Assessment Prognosis Good Problem List Decreased range of motion Barriers to Discharge None Plan Plan (S) Discharge;If this is the last note, consider this the discharge summary Recommendation/Plan PT Recommendation/Plan Home with family;Outpatient PT PT Frequency (S) One time visit (Discharge from this service) PT - OK to Discharge Yes PT Evaluation Complete Yes documented in this encounter H&P Notes * Maria E Lucero, ROVING [employer] YARN [employer] CHECKER - 01/24/2022 4:07 PM CDT Images from the original note were not included. History and Physical Date of Service: 01/24/2022 Primary Care Physician: Tip Armenta MD [phone] CHIEF COMPLAINT: Patient is a 56 y.o. male with a PMHx significant for Crohn's disease on Humira, anxiety/depression, HTN, GERD. Presents to the ED with a chief complaint of R knee swelling. HPI: Patient sent to ER by Dr. Mishra (orthopedics) with increased swelling of R knee. Initially developed R knee swelling about 9 ramirez ago after kneeling on concrete and sustaining a small scratch to hisknee. He was given Rocephin and started on PO clindamycin by an urgent care. Last Saturday (01/20) he was seen in the ER and given vancomycin IV and set up for outpatient follow up on Saturday with Dr. Morejon. He underwent arthrocentesis today which did not yield any synovial fluid. He was sent herefor worsening of the swelling, suspected prepatellar bursitis with failed outpatient management. The patient denies any fevers, chills, chest pain, dyspnea, abdominal pain, nausea/vomiting, dysuria or wounds. He reports the pain to his knee is sharp and constant, worse with moving. There is no notable erythema on exam. Workup in the ER is largely unremarkable. Orthopedics were consulted and recommended vancomycin and ceftriaxone. We have been asked to admit. Past Medical History: Diagnosis Date Anemia Anxiety and depression Crohn's colitis (CMS/HCC) (HCC) GERD (gastroesophageal reflux disease) Hypertension Past Surgical History: Procedure Laterality Date SMALL BOWEL RESECTION (Not in a hospital admission) Allergies Allergen Reactions Latex Rash Social History Tobacco Use Smoking status: Never Smokeless tobacco: Never Substance and Sexual Activity Drug use: Never Sexual activity: Defer Alcohol Use: Not At Risk Frequency of Alcohol Consumption: Monthly or less Average Number of Drinks: 1 or 2 Frequency of Binge Drinking: Never Family History Problem Relation Age of Onset No Known Problems Mother No Known Problems Father Review of Systems: Review of Systems Constitutional: Negative. HENT: Negative. Eyes: Negative. Respiratory: Negative. Cardiovascular: Positive for leg swelling. Gastrointestinal: Negative. Endocrine: Negative. Musculoskeletal: Positive for arthralgias and joint swelling. Skin: Negative. Allergic/Immunologic: Positive for immunocompromised state. Neurological: Negative. Hematological: Negative. Psychiatric/Behavioral: Negative. OBJECTIVE: Vitals: Arrival Vitals Temp 01/24/22 1015 36.8 ??C (98.2 ??F) Pulse 01/24/22 1015 78 Resp 01/24/22 1015 18 BP 01/24/22 1015 152/85 SpO2 01/24/22 1015 96 % Temp src 01/24/22 1015 Oral Heart Rate Source 01/24/22 1253 Monitor Patient Position 01/24/22 1253 Sitting BP Location 01/24/22 1253 Left arm FiO2 (%) -- Most Recent : Vitals: 01/24/22 1015 01/24/22 1253 01/24/22 1530 BP: 152/85 115/73 133/86 BP Location: Left arm Left arm Patient Position: Sitting Sitting Pulse: 78 74 76 Resp: 18 18 18 Temp: 36.8 ??C (98.2 ??F) TempSrc: Oral SpO2: 96% 99% 95% Weight: 99.7 kg (219 lb 12.8 oz) Height: 188 cm (6' 2 ) No intake/output data recorded. I/O this shift: In: 520 [IV Piggyback:520] Out: - Physical Exam: Physical Exam Vitals reviewed. Constitutional: General: He is not in acute distress. Appearance: Normal appearance. He is not ill-appearing or toxic-appearing. HENT: Head: Normocephalic and atraumatic. Nose: Nose normal. Mouth/Throat: Mouth: Mucous membranes are moist. Pharynx: Oropharynx is clear. Eyes: General: No scleral icterus. Extraocular Movements: Extraocular movements intact. Conjunctiva/sclera: Conjunctivae normal. Pupils: Pupils are equal, round, and reactive to light. Cardiovascular: Rate and Rhythm: Normal rate and regular rhythm. Pulses: Normal pulses. Heart sounds: Normal heart sounds. Pulmonary: Effort: Pulmonary effort is normal. No respiratory distress. Breath sounds: Normal breath sounds. Abdominal: General: Abdomen is flat. Bowel sounds are normal. There is no distension. Palpations: Abdomen is soft. Tenderness: There is no abdominal tenderness. Musculoskeletal: Cervical back: Normal range of motion and neck supple. Comments: R prepatellar swelling, + TTP. No erythema or lesions Skin: General: Skin is warm and dry. Capillary Refill: Capillary refill takes less than 2 seconds. Neurological: General: No focal deficit present. Mental Status: He is alert and oriented to person, place, and time. Cranial Nerves: No cranial nerve deficit. Motor: No weakness. Psychiatric: Mood and Affect: Mood normal. Behavior: Behavior normal. Lab/Radiology/Diagnostic Review: Recent Results (from the past 24 hour(s)) CBC with auto differential Collection Time: 01/24/22 12:19 PM Result Value Ref Range WBC 9.1 3.8 - 9.9 K/cumm Hgb 13.1 13.0 - 17.5 g/dL Hct 42.2 38.9 - 50.3 % Plt 259 150 - 400 K/cumm MPV 9.1 9.1 - 12.3 fL RBC 4.85 4.30 - 5.80 M/cumm MCV 87.0 81.3 - 96.4 fL MCH 27.0 (L) 27.1 - 33.3 pg MCHC 31.0 (L) 32.3 - 35.7 g/dL RDW CV 14.4 11.1 - 14.9 % RDW SD 46.1 35.7 - 48.1 fL NRBC abs 0.00 0.00 - 0.01 K/cumm Comprehensive metabolic panel Collection Time: 01/24/22 12:19 PM Result Value Ref Range Sodium 140 135 - 145 mmol/L Potassium, pl 4.6 3.3 - 4.9 mmol/L Chloride 103 97 - 110 mmol/L CO2 25 22 - 32 mmol/L Anion gap 12 2 - 15 mmol/L BUN 13 8 - 25 mg/dL Creatinine 1.40 (H) 0.80 - 1.30 mg/dL Glucose 96 70 - 199 mg/dL Calcium 8.6 8.5 - 10.3 mg/dL Bilirubin, total 0.4 0.1 - 1.2 mg/dL Protein, pl 7.3 6.5 - 8.5 g/dL Albumin 4.2 3.5 - 5.0 g/dL Alk phos 104 40 - 130 Units/L ALT 15 7 - 55 Units/L AST 22 10 - 50 Units/L Sepsis Lactate w/ Reflex Collection Time: 01/24/22 12:19 PM Result Value Ref Range Sepsis Lactate 1.0 0.7 - 2.0 mmol/L Protime-INR Collection Time: 01/24/22 12:19 PM Result Value Ref Range PT 12.9 12.0 - 14.6 sec INR 1.0 0.9 - 1.2 aPTT Collection Time: 01/24/22 12:19 PM Result Value Ref Range aPTT 28 22 - 37 sec Differential, auto Collection Time: 01/24/22 12:19 PM Result Value Ref Range Neutrophil abs 6.0 1.7 - 6.5 K/cumm Imm gran abs 0.0 0.0 - 0.1 K/cumm Lymphocyte abs 1.5 0.8 - 3.3 K/cumm Monocyte abs 1.0 (H) 0.2 - 0.8 K/cumm Eosinophil abs 0.5 0.0 - 0.5 K/cumm Basophil abs 0.1 0.0 - 0.1 K/cumm Neutrophil pct 65.9 % Imm gran pct 0.2 % Lymphocyte pct 16.9 % Monocyte pct 10.6 % Eosinophil pct 5.8 % Basophil pct 0.6 % eGFR Collection Time: 01/24/22 12:19 PM Result Value Ref Range eGFR 59 mL/min/1.73 m2 XR Knee Right 3 Views Result Date: 01/24/2022 Narrative: EXAM DESCRIPTION: XR KNEE RIGHT 3 VIEWS REASON FOR STUDY: Erythema Right knee pain x9 days. TECHNIQUE: 3 radiographic views acquired of the right knee. COMPARISON: 01/20/2022 FINDINGS: BONES/JOINTS: No acute fracture, malalignment or osseous abnormalities. Mild medial and patellofemoral c ompartment knee osteoarthritis. SOFT TISSUES: Unremarkable. OTHER: No other significant finding. IMPRESSION: No acute osseous abnormality. THIS IS AN ELECTRONICALLY VERIFIED FINAL REPORT 01/24/2022 11:34 AM - Electronically signed by Luis Gross M.D. KN: KN Report ID: [id number] Reading Location: [id number] XR Knee Right 3 Views Result Date: 01/20/2022 Narrative: EXAM DESCRIPTION: XR KNEE RIGHT 3 VIEWS REASON FOR STUDY: Anterior right knee pain and swelling. Area is hot to the touch. Patient was kneeling on ground 1.5 weeks ago on concrete and had abrasions on knee. TECHNIQUE: 3 radiographic views acquired of the right knee. COMPARISON: None available. FINDINGS: BONES/JOINTS: No acute fracture, malalignment or osseous abnormalities. Joint spaces are maintained. Small marginal osteophyte arises from the patella. SOFT TISSUES: Moderate soft tissue swelling seen over the patella. OTHER: No other significant finding. IMPRESSION: Moderate prepatellar soft tissue thickening. No acute osseous abnormality. THIS IS AN ELECTRONICALLY VERIFIED FINALREPORT 01/20/2022 2:44 AM - Electronically signed by Jesus Resendiz M.D. ML: ML Report ID: [id number] Reading Location: [id number] ASSESSMENT/PLAN: Principal Problem: Prepatellar bursitis Active Problems: Crohn's disease of both small and large intestine (HCC) HTN (hypertension) PVT (portal vein thrombosis) Resolved Problems: No resolved hospital problems. 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, stable by chart review eGFR calculated at 59 by CrCl 67.7 Monitor, avoid nephrotoxins HTN BP stable Resume home meds-ARB, amlodipine Crohn's disease Per pt in clinical remission On Humira [id number] while in hospital w/ acute infection PRN lomotil, hyoscyamine ESTIMATED LENGTH OF STAY: >2 MN Approximate time spent for chart review, assessment, interview, and note - 36 min DVT prophylaxis: Lovenox PT/OT: consulted 01/24/2022 4:07 PM Cosigned by Michael Glasgow MD at 01/24/2022 8:48 PM CDT Associated attestation - Michael Glasgow MD - 01/24/2022 8:48 PM CDT Images from the original note were not included. I have interviewed and examined the patient independent of the nurse practitioner. I agree with thenote by Maria E Lucero. The patient's case was reviewed in detail, and the assessment and plan was devised in collaboration with myself. The patient is a Mello Landisel a 56 y.o. male presenting witha chief complaint of Chief Complaint Patient presents with Knee Pain Patient presenting with right lower extremity swelling and pain without significant improvement with oral antibiotics. Arthrocentesis attempted outpatient but unable to obtain fluid. Duplex US RLE did not show evidence of DVT. Vitals: 01/24/22 1530 01/24/22 1701 01/24/222020 BP: 133/86 156/86 165/93 Pulse: 76 81 78 Resp: 18 18 18 Temp: 36.8 ??C (98.2 ??F) 36.9 ??C (98.4 ??F) SpO2: 95% 98% 98% Exam: General appearance No acute distress, alert and cooperative Lungs clear to auscultation bilaterally Heart regular rate and rhythm, S1, S2 normal, no murmur, click, rub or gallop Abdomen soft, non-tender. Bowel sounds normal. No masses, No organomegaly Extremities Diffuse right lower extremity edema without erythema I have independently reviewed the results of tests and imaging performed including: Hematology Lab History Some values may be hidden. Unless noted otherwise, only the newest values recorded on each date aredisplayed. Labs - Hematology Latest Ref Range 02/17/21 05/11/21 01/20/22 01/24/22 WBC 3.8 - 9.9 K/cumm 10.6 (A) 8.4 11.0 (A) 9.1 Total Hb, POC 13.0 - 17.5 g/dL 12.6 (A) 12.9 (A) 14.4 13.1 Hct 38.9 - 50.3 % 39.7 41.5 46.4 42.2 Plt 150 - 400 K/cumm 185 274 259 Platelets 140 - 400 Thousand/uL 289 Neutrophil abs 1.7 - 6.5 K/cumm 6.7 (A) 6.0 Lymphocytes, abs 0.8 - 3.3 K/cumm 1,756 2.7 1.5 Some values recorded on this date have been omitted. Some abnormal values recorded on this date have been omitted. (A) Abnormal value Comments are available for some flowsheets but are not being displayed. Chem/LFT Lab History Some values may be hidden. Unless noted otherwise, only the newest values recorded on each date aredisplayed. Labs-Chem/LFT Latest Ref Range 02/17/21 05/11/21 01/20/22 01/24/22 Sodium 135 - 145 mmol/L 136 138 140 Creatinine 0.80 - 1.30 mg/dL 1.60 (A) 1.40 (A) 1.40 (A) Bilirubin, total 0.1 - 1.2 mg/dL 0.6 0.9 0.4 AST 10 - 50 Units/L 23 23 22 ALT 7 - 55 Units/L 20 13 15 CrCl- Actual Body Weight (Cockcroft-Gault) 71.5 81.8 82.1 (A) Abnormal value Comments are available for some flowsheets but are not being displayed. Assessment & Plan Principal Problem: Prepatellar bursitis Active Problems: Crohn's disease of both small and large intestine (HCC) Chronic diarrhea HTN (hypertension) Stage 3a chronic kidney disease (HCC) Resolved Problems: No resolved hospital problems. Possible Prepatellar Bursitis - continue vancomycin and ceftriaxone - monitor white count and temp - pain control with bowel regimen CKD 3a Essential Hypertension MDM moderate Michael Jose Alberto Glasgow MD 8:41 PM 01/24/2022 [facility] Hospitalist Group documented in this encounter Consult Notes * Gee Ibrahim MD - 01/26/2022 3:38 PM CDT Infectious Disease Consult Requesting physician: Dr. Zach Rodriguez Date of consultation: 01/26/2022 Reason for consultation: Right knee and lower extremity edema HPI: 56-year-old male with significant past medical history for Crohn's disease on Humira, hypertension,anxiety/depression and GERD presented with history of right knee swelling that started about 9 daysprior to admission after kneeling on a concrete and sustained small abrasion to the knee area. Patient was seen at an urgent care center and given a single dose of Rocephin and started on p.o. clindamycin. With no improvement on 01/20/2022 patient was seen in the emergency room given single dose ofvancomycin and was asked to follow with Dr. Alejandra from Orthopedics. Patient was subsequently seen by juan Alejandra and admitted to the hospital. He underwent arthrocentesis with no yield from the synovial fluid. Patient denies any fever or chills no nausea or vomiting. No diarrhea. No dysuria. Patient's main complaint is pain associated with lower extremity edema extending from the right knee part of the henry and the ankle area. Patient also has limited range of motion of the knee due to swelling and pain. No warmth around the joint and no skin rash. Blood cultures on admission has beennegative. Inflammatory markers are minimally elevated Past Medical History: Diagnosis Date Anemia Anxiety and depression Crohn's colitis (CMS/HCC) (HCC) GERD (gastroesophageal reflux disease) Hypertension Past Surgical History: Procedure Laterality Date SMALL BOWEL RESECTION HOME MEDICATIONS : adalimumab (Humira,CF, Pen) 40 mg/0.4 mL pen injector kit amitriptyline (ELAVIL) 10 mg tablet amLODIPine (NORVASC) 5 mg tablet cyanocobalamin (Vitamin B-12) 1,000 mcg/mL injection diphenoxylate-atropine (LOMOTIL) 2.5-0.025 mg per tablet folic acid (FOLVITE) 1 mg tablet HYDROcodone-acetaminophen (NORCO) 7.5-325 mg per tablet irbesartan (AVAPRO) 300 mg tablet lansoprazole (PREVACID) 15 mg capsule testosterone cypionate (DEPO-TESTOTERONE) 200 mg/mL injection zolpidem (AMBIEN) 10 mg tablet acetaminophen-codeine (TYLENOL with CODEINE #3) 300-30 mg per tablet ALPRAZolam (XANAX) 1 mg tablet BD SAFETYGLIDE SYRINGE 3 mL 23 x 1 syringe CIALIS 20 mg tablet hydroCHLOROthiazide (HYDRODIURIL) 25 mg tablet hyoscyamine (LEVSIN) 0.125 mg tablet magnesium oxide,aspartate,citr 400 mg magnesium capsule montelukast (SINGULAIR) 10 mg tablet ondansetron (ZOFRAN) 8 mg tablet Current Facility-Administered Medications Ordered in Epic Medication Dose Route Frequency Provider Last Rate Last Admin acetaminophen (TYLENOL) tablet 650 mg 650 mg oral Q4H PRN Devin Luceroison G., [employer]ING [employer] 650 mg at ALPRAZolam (XANAX) tablet 0.5 mg 0.5 mg oral BID PRN Lucero Maria E G., [employer] amitriptyline (ELAVIL) tablet 10 mg 10 mg oral Nightly Lucero, Maria E G., [employer] sodium chloride 0.9% flush 0.5-20 mL 0.5-20 mL intra-catheter Q8H TERRELL Maria E Lucero G., [employer] 10 mL at 01/26/22 0701 And sodium chloride 0.9% flush 0.5-20 mL 0.5-20 mL intra-catheter PRN Maria E Lucero GMonroe, ROVING [employer] CHECKER And Carrier Fluids for Secondary Infusion - 0.9% Sodium Chloride 30 mL intravenous PRN Devin Luceroison G., [employer] cefTRIAXone (ROCEPHIN) 2,000 mg/20 mL in sterile water (premix) 2,000 mg 2,000 mg intravenous Q24H TERRELL Maria E Lucero, [employer] 2,000 mg at 01/26/22 0858 diphenoxylate-atropine (LOMOTIL) 2.5-0.025 mg per tablet 1 tablet 1 tablet oral TID PRN Maria E Lucero, [employer]OVING [employer] folic acid (FOLVITE) tablet 1 mg 1 mg oral QAM Maria E Lucero, [employer]OVING [employer] 1 mg at 01/26/22 0858 hydroCHLOROthiazide (HYDRODIURIL) tablet 12.5 mg 12.5 mg oral Daily Michael Glasgow MD 12.5 mgat 01/26/22 1500 HYDROcodone-acetaminophen (NORCO) 7.5-325 mg per tablet 1 tablet 1 tablet oral Q6H PRN Maria E Lucero, [employer] 1 tablet at 01/26/22 1501 hyoscyamine (LEVSIN) tablet 125 mcg 125 mcg oral QID PRN Maria E Lucero, [employer] losartan (COZAAR) tablet 100 mg 100 mg oral Daily Maria E Lucero, [employer] 100 mg at 01/26/22 0858 nystatin 100,000 unit/mL oral suspension 500,000 Units 500,000 Units swish & swallow QID Maria E Lucero, [employer]OVING [employer] 500,000 Units at 01/26/[address] (PROTONIX) extended release tablet 40 mg 40 mg oral Daily Maria E Lucero, [employer] 40mg at 01/26/22 0858 prochlorperazine (COMPAZINE) tablet 5 mg 5 mg oral Q6H PRN Maria E Lucero, [employer] Or prochlorperazine (COMPAZINE) injection 5 mg 5 mg intravenous Q6H PRN Maria E Lucero, [employer] vancomycin 1500 mg/250 mL in sodium chloride 0.9% (premix) 1,500 mg 15 mg/kg intravenous Q12H Maria E Lucero, [employer] 1,500 mg at 01/26/22 1231 zolpidem (AMBIEN) tablet 5 mg 5 mg oral Nightly PRN Maria E Lucero, [employer]OV[employer] No current Epic-ordered outpatient medications on file. Anti-infectives (From admission, onward) Start Dose/Rate Route Frequency Ordered Stop 01/25/22 0900 cefTRIAXone (ROCEPHIN) 2,000 mg/20 mL in sterile water (premix) 2,000 mg 2,000 mg 1,200 mL/hr over 1 Minutes intravenous Every 24 hours scheduled 01/24/22 1647 01/25/22 0000 vancomycin 1500 mg/250 mL in sodium chloride 0.9% (premix) 1,500 mg 15 mg/kg ?? 99.7 kg over 90 Minutes intravenous Every 12 hours 01/24/22 1647 01/24/22 1700 nystatin 100,000 unit/mL oral suspension 500,000 Units 500,000 Units swish & swallow 4 times daily 01/24/22 1608 Immunosuppressive Medications: Immunosuppressive Medications (From admission, onward) None Active LDAs: Peripheral IV 01/24/22 20 G Left Antecubital (Active) Site Assessment Clean and dry 01/26/22 1041 IV Line Status Single Saline locked 01/26/22 1041 Dressing Type Transparent 01/26/22 1041 Dressing Status Clean, dry, intact 01/26/22 1041 Number of days: 2 [REMOVED] Peripheral IV 07/19/20 22 G Left;Posterior Forearm (Removed) Site Assessment Clean and dry 07/19/20 0758 IV Line Status Single Blood return noted;Flushes easily;Infusing 07/19/20 0758 Dressing Type Transparent 07/19/20 0758 Dressing Status Clean, dry, intact;Occlusive 07/19/20 0758 Number of days: 164 [REMOVED] Peripheral IV 12/17/20 20 G Right Antecubital (Removed) Number of days: 0 [REMOVED] Peripheral IV 12/30/20 20 G Right Hand (Removed) Number of days: 386 [REMOVED] Peripheral IV 02/16/21 20 G Right Antecubital (Removed) Number of days: 1 [REMOVED] Peripheral IV 02/16/21 20 G Left Hand (Removed) Number of days: 1 [REMOVED] Peripheral IV 05/17/21 22 G Anterior;Left Forearm (Removed) Number of days: 0 [REMOVED] Peripheral IV 06/07/21 22 G Anterior;Left;Proximal Forearm (Removed) Number of days: 0 [REMOVED] Peripheral IV 01/20/22 20 G Right Antecubital (Removed) Number of days: 0 [REMOVED] Closed/Suction/Open Drain 1 Right;Anterior Neck Bulb 10 Fr. (Removed) Number of days: 344 [REMOVED] ETT Reinforced tube 7.5 mm (Removed) Number of days: 0 Allergies Allergen Reactions Latex Rash Social History Tobacco Use Smoking status: Never Smokeless tobacco: Never Substance and Sexual Activity Drug use: Never Sexual activity: Defer Alcohol Use: Not At Risk Frequency of Alcohol Consumption: Monthly or less Average Number of Drinks: 1 or 2 Frequency of Binge Drinking: Never Family History Problem Relation Age of Onset No Known Problems Mother No Known Problems Father Review of Systems: Review of Systems Constitutional: Negative for fever and weight loss. HENT: Negative for ear pain and hearing loss. Eyes: Negative for blurred vision. Respiratory: Negative for cough and shortness of breath. Cardiovascular: Negative for chest pain and palpitations. Gastrointestinal: Negative for abdominal pain and diarrhea. Genitourinary: Negative for dysuria and hematuria. Musculoskeletal: Right knee joint swelling and pain progressing over 9 days prior to admission. Neurological: Negative for seizures. Endo/Heme/Allergies: Negative for polydipsia. Does not bruise/bleed easily. Psychiatric/Behavioral: Negative for depression. Skin: No rash Objective Vitals: 24hr Min/Max: Temp Min: 36.6 ??C (97.8 ??F) Max: 37.6 ??C (99.7 ??F) Pulse Min: 60 Max: 81 BP Min: 147/74 Max: 165/92 Resp Min: 16 Max: 18 SpO2 Min: 96 % Max: 97 % Most Recent : Vitals: 01/26/22 1507 BP: 147/74 Pulse: 60 Resp: 18 Temp: 36.8 ??C (98.3 ??F) SpO2: 96% I/O last 2 completed shifts: In: 500 [P.O.:240; I.V.:10; IV Piggyback:250] Out: - I/O this shift: In: 20 [IV Piggyback:20] Out: - Physical Exam: General: Well appearing, well nourished, in no distress. Oriented x 3, normal mood and affect . Ambulating without difficulty. Skin: Good turgor, no rash, unusual bruising or prominent lesions HEENT: Head: Normocephalic and atraumatic. Eyes: Sclera non-icteric, EOM intact and PERRL Mouth: Mucous membranes moist, no mucosal lesions. Teeth/Gums: No obvious caries or periodontal disease. Pharynx: Mucosa non-inflamed, no tonsillar hypertrophy or exudate Neck: Supple, no adenopathy. Heart: No cardiomegaly or thrills; regular rate and rhythm, no murmur or gallop Lungs: Clear to auscultation and percussion Abdomen: Bowel sounds normal, no tenderness, organomegaly, masses, or hernia Extremities: No edema. peripheral pulses are intact Musculoskeletal: Right lower extremity swelling extending from the right knee some part of the shinand ankle area. Range of motion of the knee is limited. No warmth or tenderness on palpation. Minimal effusion Neurologic: CN 2-12 normal. Sensation to pain, touch. DTRs normal in upper and lower extremities. No pathologic reflexes. Psychiatric: Oriented X3, intact recent and remote memory, judgment and insight, normal mood and affect. Lymph Node: normal Lab/Radiology/Diagnostic Review: Recent Results (from the past 72 hour(s)) CBC with auto differential Collection Time: 01/24/22 12:19 PM Result Value Ref Range WBC 9.1 3.8 - 9.9 K/cumm Hgb 13.1 13.0 - 17.5 g/dL Hct 42.2 38.9 - 50.3 % Plt 259 150 - 400 K/cumm MPV 9.1 9.1 - 12.3 fL RBC 4.85 4.30 - 5.80 M/cumm MCV 87.0 81.3 - 96.4 fL MCH 27.0 (L) 27.1 - 33.3 pg MCHC 31.0 (L) 32.3 - 35.7 g/dL RDW CV 14.4 11.1 - 14.9 % RDW SD 46.1 35.7 - 48.1 fL NRBC abs 0.00 0.00 - 0.01 K/cumm Comprehensive metabolic panel Collection Time: 01/24/22 12:19 PM Result Value Ref Range Sodium 140 135 - 145 mmol/L Potassium, pl 4.6 3.3 - 4.9 mmol/L Chloride 103 97 - 110 mmol/L CO2 25 22 - 32 mmol/L Anion gap 12 2 - 15 mmol/L BUN 13 8 - 25 mg/dL Creatinine 1.40 (H) 0.80 - 1.30 mg/dL Glucose 96 70 - 199 mg/dL Calcium 8.6 8.5 - 10.3 mg/dL Bilirubin, total 0.4 0.1 - 1.2 mg/dL Protein, pl 7.3 6.5 - 8.5 g/dL Albumin 4.2 3.5 - 5.0 g/dL Alk phos 104 40 - 130 Units/L ALT 15 7 - 55 Units/L AST 22 10 - 50 Units/L Sepsis Lactate w/ Reflex Collection Time: 01/24/22 12:19 PM Result Value Ref Range Sepsis Lactate 1.0 0.7 - 2.0 mmol/L Protime-INR Collection Time: 01/24/22 12:19 PM Result Value Ref Range PT 12.9 12.0 - 14.6 sec INR 1.0 0.9 - 1.2 aPTT Collection Time: 01/24/22 12:19 PM Result Value Ref Range aPTT 28 22 - 37 sec Blood culture Blood Peripheral Collection Time: 01/24/22 12:19 PM Specimen: Peripheral; Blood Result Value Ref Range Report Preliminary Report: No growth to date. Differential, auto Collection Time: 01/24/22 12:19 PM Result Value Ref Range Neutrophil abs 6.0 1.7 - 6.5 K/cumm Imm gran abs 0.0 0.0 - 0.1 K/cumm Lymphocyte abs 1.5 0.8 - 3.3 K/cumm Monocyte abs 1.0 (H) 0.2 - 0.8 K/cumm Eosinophil abs 0.5 0.0 - 0.5 K/cumm Basophil abs 0.1 0.0 - 0.1 K/cumm Neutrophil pct 65.9 % Imm gran pct 0.2 % Lymphocyte pct 16.9 % Monocyte pct 10.6 % Eosinophil pct 5.8 % Basophil pct 0.6 % eGFR Collection Time: 01/24/22 12:19 PM Result Value Ref Range eGFR 59 mL/min/1.73 m2 Blood culture Blood Peripheral Collection Time: 01/24/22 12:23 PM Specimen: Peripheral; Blood Result Value Ref Range Report Preliminary Report: No growth to date. CBC with auto differential Collection Time: 01/25/22 8:46 AM Result Value Ref Range WBC 8.0 3.8 - 9.9 K/cumm Hgb 12.5 (L) 13.0 - 17.5 g/dL Hct 40.8 38.9 - 50.3 % Plt 232 150 - 400 K/cumm MPV 9.8 9.1 - 12.3 fL RBC 4.71 4.30 - 5.80 M/cumm MCV 86.6 81.3 - 96.4 fL MCH 26.5 (L) 27.1 - 33.3 pg MCHC 30.6 (L) 32.3 - 35.7 g/dL RDW CV 14.2 11.1 - 14.9 % RDW SD 45.1 35.7 - 48.1 fL NRBC abs 0.00 0.00 - 0.01 K/cumm Comprehensive metabolic panel Collection Time: 01/25/22 8:46 AM Result Value Ref Range Sodium 137 135 - 145 mmol/L Potassium, pl 4.6 3.3 - 4.9 mmol/L Chloride 103 97 - 110 mmol/L CO2 28 22 - 32 mmol/L Anion gap 6 2 - 15 mmol/L BUN 9 8 - 25 mg/dL Creatinine 1.30 0.80 - 1.30 mg/dL Glucose 96 70 - 199 mg/dL Calcium 8.5 8.5 - 10.3 mg/dL Bilirubin, total 0.6 0.1 - 1.2 mg/dL Protein, pl 6.7 6.5 - 8.5 g/dL Albumin 3.9 3.5 - 5.0 g/dL Alk phos 93 40 - 130 Units/L ALT 10 7 - 55 Units/L AST 16 10 - 50 Units/L Differential, auto Collection Time: 01/25/22 8:46 AM Result Value Ref Range Neutrophil abs 5.5 1.7 - 6.5 K/cumm Imm gran abs 0.0 0.0 - 0.1 K/cumm Lymphocyte abs 1.3 0.8 - 3.3 K/cumm Monocyte abs 0.7 0.2 - 0.8 K/cumm Eosinophil abs 0.4 0.0 - 0.5 K/cumm Basophil abs 0.1 0.0 - 0.1 K/cumm Neutrophil pct 68.9 % Imm gran pct 0.3 % Lymphocyte pct 16.1 % Monocyte pct 8.6 % Eosinophil pct 5.5 % Basophil pct 0.6 % eGFR Collection Time: 01/25/22 8:46 AM Result Value Ref Range eGFR 64 mL/min/1.73 m2 Erythrocyte sedimentation rate Collection Time: 01/25/22 8:46 AM Result Value Ref Range Erythrocyte sedimentation rate 14 1 - 20 mm/hr CRP (acute phase) Collection Time: 01/25/22 8:46 AM Result Value Ref Range CRP 21.2 (H) <=10.0 mg/L Vancomycin level trough Collection Time: 01/25/22 10:39 PM Result Value Ref Range Vancomycin trough 15.1 10.0 - 20.0 mcg/mL CBC with auto differential Collection Time: 01/26/22 4:17 AM Result Value Ref Range WBC 7.4 3.8 - 9.9 K/cumm Hgb 12.2 (L) 13.0 - 17.5 g/dL Hct 38.5 (L) 38.9 - 50.3 % Plt 230 150 - 400 K/cumm MPV 9.6 9.1 - 12.3 fL RBC 4.52 4.30 - 5.80 M/cumm MCV 85.2 81.3 - 96.4 fL MCH 27.0 (L) 27.1 - 33.3 pg MCHC 31.7 (L) 32.3 - 35.7 g/dL RDW CV 14.1 11.1 - 14.9 % RDW SD 43.7 35.7 - 48.1 fL NRBC abs 0.00 0.00 - 0.01 K/cumm Comprehensive metabolic panel Collection Time: 01/26/22 4:17 AM Result Value Ref Range Sodium 140 135 - 145 mmol/L Potassium, pl 3.7 3.3 - 4.9 mmol/L Chloride 105 97 - 110 mmol/L CO2 29 22 - 32 mmol/L Anion gap 6 2 - 15 mmol/L BUN 9 8 - 25 mg/dL Creatinine 1.10 0.80 - 1.30 mg/dL Glucose 101 70 - 199 mg/dL Calcium 8.3 (L) 8.5 - 10.3 mg/dL Bilirubin, total 0.4 0.1 - 1.2 mg/dL Protein, pl 6.6 6.5 - 8.5 g/dL Albumin 3.8 3.5 - 5.0 g/dL Alk phos 84 40 - 130 Units/L ALT 10 7 - 55 Units/L AST 14 10 - 50 Units/L Differential, auto Collection Time: 01/26/22 4:17 AM Result Value Ref Range Neutrophil abs 4.2 1.7 - 6.5 K/cumm Imm gran abs 0.0 0.0 - 0.1 K/cumm Lymphocyte abs 1.9 0.8 - 3.3 K/cumm Monocyte abs 0.8 0.2 - 0.8 K/cumm Eosinophil abs 0.4 0.0 - 0.5 K/cumm Basophil abs 0.0 0.0 - 0.1 K/cumm Neutrophil pct 57.2 % Imm gran pct 0.3 % Lymphocyte pct 25.4 % Monocyte pct 10.6 % Eosinophil pct 6.0 % Basophil pct 0.5 % eGFR Collection Time: 01/26/22 4:17 AM Result Value Ref Range eGFR 78 mL/min/1.73 m2 ESR of 9. CRP of 22. Blood cultures from 01/20/2022 and 01/24/[address] scan of abdomen and pelvis 1. No findings identified to suggest the etiology of the patient's symptoms. Cavernous transformation of the portal vein. 2. Bilateral nonobstructing kidney stones CT scan of the entire right lower extremity: 1. Diffuse cutaneous thickening and subcutaneous stranding involving the distal thigh as well as the entire leg and foot. This is compatible with cellulitis in the appropriate clinical setting. This is most pronounced anterior to the patella and may represent a component of bursitis potentially infectious. 2. A drainable fluid collection is not to suggest an abscess. Assessment and plan: 1. Right lower extremity soft tissue swelling with noticeable right knee and ankle swelling. No erythema or or warmth. Limited range of motion of the right knee associated with pain. Differential diagnosis include inflammatory arthritis versus infectious arthritis less likely. Patient has remained afebrile with inflammatory markers a child as ESR and C-reactive marginally elevated. Patient has received at least on and of 5-6 days of IV antibiotics with no clear response. Suspect this may be noninfectious inflammatory arthritis or serositis. Will request LA and rheumatoid factor. Patient is on Rocephin and vancomycin day 2. CT scan of the right lower extremity showed diffuse cutaneous thickening and stranding involving the distal thigh as well as the entire leg and foot. CT scan of the abdomen and pelvis was negative for obstructing mass or lymphadenopathy. 2. Crohn's disease on Humira. Will request urine for Histoplasma antigen and TB QuantiFERON gold. 3. Hypertension with stable blood pressure . * Mary Watt RD - 01/26/2022 1:25 PM CDTAssociated Order(s): IP CONSULT TO NUTRITION SERVICES Nutrition Assessment Reason for Assessment: Initial Nutrition Assessment and Consult/Referral Encounter Date: 01/26/22 1:25 PM Patient is a 56 y.o. male. Admit Dx: Prepatellar bursitis [M70.40] History of Crohn's disease [Z87.19] Infection of right prepatellar bursa [M71.161] Chronic hypertension [I10] Acute renal failure, unspecified acute renal failure type (HCC) [N17.9] Cellulitis [L03.90]. Admitted on 01/24/2022, current LOS is 1 days. Nutrition Diagnosis 1: No nutrition issue at this time Related to: Chronic illness/injury Evidencedby: Patient interview [facility] Malnutrition Assessment: Date of completion (or initial diagnosis): 01/26 Patient does not meet criteria for malnutrition based on ASPEN guidelines. Nutrition-focused physical exam (NFPE) findings: ASSESSMENT AND INTERVENTION/RECOMMENDATIONS: Acknowledging consult for MST 2. Patient admitted on 01/24 for prepatellar bursitis. He has a past medical history of Gerd, Crohn's, HTN, Small bowel resection. He is on a regular diet and is consuming 75% for 2 meals documented since admission. He has a good appetite and his spouse has been bringing in food for him. His UBW is 119 lbs. He has noticed his weight fluctuates +/- 10 lbs. No significant weight loss documented in EMR. Weight has ranged from 215-229 lbs in last year. His usual intake at home has been good. He will return home after discharge. EDUCATION NEEDED/COMPLETED? RD asked if he would be interested in any education regarding Crohns. He said he would be, RD gave handout and went over in detail (IBD: Crohn's Disease and Ulcerative Colitits Nutrition Therapy). Patient was appreciative of information. He had no questions at this time. GOALS / MONITORING: Goals: Oral intake to meet 75% estimated nutritional needs by next assessment Interventions: Initial assessment, Meals and snacks, Education, nutrition Monitoring and Evaluation: Diet-related questions, Discharge plans, I/O, Labs, Plan of care, PO intake Anthropometrics: Wt Readings from Last 10 Encounters: 01/24/22 99.7 kg (219 lb 12.8 oz) 01/20/22 99.3 kg (219 lb) 10/19/21 104 kg (229 lb 3.2 oz) 07/12/21 99.2 kg (218 lb 9.6 oz) 06/07/21 99.2 kg (218 lb 11.1 oz) 05/17/21 97.6 kg (215 lb 2.7 oz) 03/30/21 98.4 kg (217 lb) 02/16/21 98 kg (216 lb 1.6 oz) 02/10/21 102.1 kg (225 lb) 02/09/21 97.5 kg (215 lb) Anthropometrics Weight: 99.7 kg (219 lb 12.8 oz) Admission Weight : 99.7 kg Weight Change: 0.36 kg (0.79 lbs) IBW/kg (Calculated) : 86.2 kg Height: 188 cm (6' 2 ) Weight in (lb) to have BMI = 25: 194.3 BMI (Calculated): 28.2 Estimated Nutrition Needs: Calories Calculated Energy Needs Using Equations Weight Used for Equation Calculations (RD Determined): 99.7 kg (219 lb 12.8 oz) Weight: 99.7 kg (219 lb 12.8 oz) Height: 188 cm (6' 2 ) Leny Alexander Equation (Overweight or Obese Patients): 1892 Equation Chosen to Use by RD: Keila Ramirez Activity Factor: 1.2 Total Energy Needs: 2270.4 kcal Total Energy Needs + Fever Factor: 2270.4 Protein Estimated Protein Needs Type of Weight Used for Estimated Protein : Current Protein Needs Based on g/k.0 Total Protein Estimated Needs (gm): 99.7 Fluid Estimated Fluid Needs Type of Weight Used for Estimated Fluid Needs: Current Fluid Needs Based on : 1 ml/kcal Total Fluid Estimated Needs: 0 Total Fluid Estimated Needs Comments:: 2270 mL (1 mL/kcal) Medications: IV antibiotics Folic acid Protonix Lab Review: Calc 8.3 (L) Past Medical History: Diagnosis Date Anemia Anxiety and depression Crohn's colitis (CMS/HCC) (HCC) GERD (gastroesophageal reflux disease) Hypertension Past Surgical History: Procedure Laterality Date SMALL BOWEL RESECTION Dietary Orders (From admission, onward) Start Ordered 01/24/22 1647 Adult Diet Regular Diet effective now Question: (MHB/MHE/RESIDENTIAL) Diet type Answer: Regular 01/24/22 [address] Call RD office at [phone] with any nutrition-related questions. Nutrition Follow-Up : 02/05/22 * Stephen Morejon DO - 01/25/2022 6:14 PM CDTAssociated Order(s): IP CONSULT TO ORTHOPEDIC SURGERY Orthopedic Consult Reason for Consult: Right leg swelling, right knee pain Requesting Provider: Michael Nuñez MD Attending Physician: Michael Glasgow MD Subjective Patient is a 56 y.o. male with chief complaint of right leg swelling for the past 10 days. HPI: 56-year-old male presented to the [facility] yesterday with complaints of right knee pain and lower extremity swelling. He states he was doing some plumbing work and cut his knee on the anterior aspect. He thinks this may have been contaminated with raw sewage. He was seen in the emergency department this past weekend and received a dose of vancomycin. This did improve his knee pain for a few days but it returned earlier in the week. He has not had any fevers or chills. He has not had any shortness of breath or chest pain. When evaluated my clinic he was sent to the emergency department for Doppler ultrasound and admission for further workup. Blood cultures have shown no growth to date. CT scan taken today shows diffuse lower extremity swelling. His pain has slightly improved sinceyesterday. He denies any acute issues today. Past Medical History: Diagnosis Date Anemia Anxiety and depression Crohn's colitis (CMS/HCC) (HCC) GERD (gastroesophageal reflux disease) Hypertension Past Surgical History: Procedure Laterality Date SMALL BOWEL RESECTION Medications Prior to Admission Medication Sig Dispense Refill Last Dose adalimumab (Humira,CF, Pen) 40 mg/0.4 mL pen injector kit Inject 0.4 mL (40 mg total) under the skin every 14 (fourteen) days Safety labs required every 3 months for med refills, labs needed DEACON (overdue). Must be completed for any further refills to be authorized. 2 each 0 Past Week amitriptyline (ELAVIL) 10 mg tablet Take 10 mg by mouth nightly 01/23/2022 amLODIPine (NORVASC) 5 mg tablet Take 5 mg by mouth every morning 01/24/2022 cyanocobalamin (Vitamin B-12) 1,000 mcg/mL injection INJECT 1 ML Q 2 WEEKS UTD 4 Past Week diphenoxylate-atropine (LOMOTIL) 2.5-0.025 mg per tablet Take 1 tablet by mouth 3 (three) times a day as needed 5 01/24/2022 folic acid (FOLVITE) 1 mg tablet Take 1 mg by mouth every morning 3 01/24/2022 HYDROcodone-acetaminophen (NORCO) 7.5-325 mg per tablet Take 1 tablet by mouth every 6 (six) hours as needed for pain 01/23/2022 irbesartan (AVAPRO) 300 mg tablet Take 300 mg by mouth every morning 01/24/2022 lansoprazole (PREVACID) 15 mg capsule Take 15 mg by mouth 2 (two) times a day 01/24/2022 testosterone cypionate (DEPO-TESTOTERONE) 200 mg/mL injection INJ 1 ML IM Q WK 5 Past Week zolpidem (AMBIEN) 10 mg tablet Take 10 mg by mouth nightly as needed 5 01/23/2022 acetaminophen-codeine (TYLENOL with CODEINE #3) 300-30 mg per tablet TAKE 1 TABLET BY MOUTH EVERY 4HOURS NEEDED FOR PAIN ALPRAZolam (XANAX) 1 mg tablet TK 1/2 TO 1 T PO BID PRF ANXIETY 5 BD SAFETYGLIDE SYRINGE 3 mL 23 x 1 syringe U UTD 5 CIALIS 20 mg tablet TK 1 T PO QD PRN 5 hydroCHLOROthiazide (HYDRODIURIL) 25 mg tablet Take 25 mg by mouth as needed hyoscyamine (LEVSIN) 0.125 mg tablet TAKE 1 TABLET(0.125 MG) BY MOUTH EVERY 6 HOURS NEEDED FOR CRAMPING OR DIARRHEA/ SPASMS 120 tablet 2 magnesium oxide,aspartate,citr 400 mg magnesium capsule Take 1 capsule by mouth as needed montelukast (SINGULAIR) 10 mg tablet Take 10 mg by mouth as needed 1 ondansetron (ZOFRAN) 8 mg tablet Take 8 mg by mouth as needed 5 Allergies Allergen Reactions Latex Rash Social History Tobacco Use Smoking status: Never Smokeless tobacco: Never Substance and Sexual Activity Drug use: Never Sexual activity: Defer Alcohol Use: Not At Risk Frequency of Alcohol Consumption: Monthly or less Average Number of Drinks: 1 or 2 Frequency of Binge Drinking: Never Family History Problem Relation Age of Onset No Known Problems Mother No Known Problems Father Review of Systems: Constitutional: negative Eyes: negative Ears, nose, mouth, throat, and face: negative Respiratory: negative Cardiovascular: negative Gastrointestinal: negative Genitourinary: negative Integument/breast: negative Musculoskeletal: Right leg swelling Neurological: negative Behavioral/Psych: negative Objective Vitals: Vitals: 01/25/22 1544 BP: 160/93 Pulse: 76 Resp: 18 Temp: 37 ??C (98.6 ??F) SpO2: 96% Physical Exam: Gen: No acute distress, well developed Head: Atraumatic Eyes: EOM are normal Ears: Hearing intact to spoken word Cardiovascular: Rate is regular Pulmonary: No respiratory distress Adominal: soft Neurologic: Patient oriented to person, place and time Psychiatric: Normal mood and affect MSK: Exam of the right leg shows diffuse swelling. There is no overlying erythema but some more thought over the prepatellar bursa. Tenderness over his prepatellar bursa. He also has tenderness at the insertion of his quadriceps tendon. He is able to perform an active straight leg raise. There is no extensor lag. He has no clinical effusion over the right knee. Tolerates knee range of motion. Tenderness anteriorly with deep flexion. He is able to actively flex extend at the ankle. Calves are compressible and nontender. Pulses intact. Sensation is grossly intact. Lab/Diagnostic Review: Laboratory review: Lab results in the last 24 hours: Recent Results (from the past 24 hour(s)) CBC with auto differential Collection Time: 01/25/22 8:46 AM Result Value Ref Range WBC 8.0 3.8 - 9.9 K/cumm Hgb 12.5 (L) 13.0 - 17.5 g/dL Hct 40.8 38.9 - 50.3 % Plt 232 150 - 400 K/cumm MPV 9.8 9.1 - 12.3 fL RBC 4.71 4.30 - 5.80 M/cumm MCV 86.6 81.3 - 96.4 fL MCH 26.5 (L) 27.1 - 33.3 pg MCHC 30.6 (L) 32.3 - 35.7 g/dL RDW CV 14.2 11.1 - 14.9 % RDW SD 45.1 35.7 - 48.1 fL NRBC abs 0.00 0.00 - 0.01 K/cumm Comprehensive metabolic panel Collection Time: 01/25/22 8:46 AM Result Value Ref Range Sodium 137 135 - 145 mmol/L Potassium, pl 4.6 3.3 - 4.9 mmol/L Chloride 103 97 - 110 mmol/L CO2 28 22 - 32 mmol/L Anion gap 6 2 - 15 mmol/L BUN 9 8 - 25 mg/dL Creatinine 1.30 0.80 - 1.30 mg/dL Glucose 96 70 - 199 mg/dL Calcium 8.5 8.5 - 10.3 mg/dL Bilirubin, total 0.6 0.1 - 1.2 mg/dL Protein, pl 6.7 6.5 - 8.5 g/dL Albumin 3.9 3.5 - 5.0 g/dL Alk phos 93 40 - 130 Units/L ALT 10 7 - 55 Units/L AST 16 10 - 50 Units/L Differential, auto Collection Time: 01/25/22 8:46 AM Result Value Ref Range Neutrophil abs 5.5 1.7 - 6.5 K/cumm Imm gran abs 0.0 0.0 - 0.1 K/cumm Lymphocyte abs 1.3 0.8 - 3.3 K/cumm Monocyte abs 0.7 0.2 - 0.8 K/cumm Eosinophil abs 0.4 0.0 - 0.5 K/cumm Basophil abs 0.1 0.0 - 0.1 K/cumm Neutrophil pct 68.9 % Imm gran pct 0.3 % Lymphocyte pct 16.1 % Monocyte pct 8.6 % Eosinophil pct 5.5 % Basophil pct 0.6 % eGFR Collection Time: 01/25/22 8:46 AM Result Value Ref Range eGFR 64 mL/min/1.73 m2 , CBC: Lab Results Component Value Date WBC 8.0 01/25/2022 RBC 4.71 01/25/2022 HGB 12.5 (L) 01/25/2022 HCT 40.8 01/25/2022 MCV 86.6 01/25/2022 MCH 26.5 (L) 01/25/2022 MCHC 30.6 (L) 01/25/2022 RDWCV 14.2 01/25/2022 RDWSD 45.1 01/25/2022 MPV 9.8 01/25/2022 NRBCABS 0.00 01/25/2022 , and Coags: Lab Results Component Value Date PT 12.9 01/24/2022 APTT 28 01/24/2022 INR 1.0 01/24/2022 diagnostic test(s) review: CT Abdomen Pelvis W Contrast EXAM DESCRIPTION: CT ABDOMEN PELVIS W CONTRAST REASON FOR STUDY: Right lower extremity pain and swelling. TECHNIQUE: CT scan of the abdomen and pelvis performed with intravenous and without oral contrast using helical scanning technique with dynamic intravenous contrast injection. Reconstructed coronal and sagittal MPR images reviewed. All images stored on PACS. Automated exposure control was used as a dose optimization technique for this examination. CONTRAST TYPE/DOSE: 75mL of IOVERSOL 350 MG IODINE/ML INTRAVENOUS SYRINGE injected via intravenous COMPARISON: MRI dated 2012. FINDINGS: LOWER CHEST: Nodular airspace opacity in the left lower lobe may be infectious in etiology. No pleural pericardial effusion. LIVER: Normal size. No identified cystic or solid masses. GALLBLADDER: No stones identified. No wall thickening or inflammatory changes. BILE DUCTS: No intrahepatic or extrahepatic ductal dilatation. SPLEEN: Normal size. No focal lesions. PANCREAS: No identified cystic or solid masses. No significant calcifications. No adjacent inflammation or peripancreatic fluid collections. Pancreatic duct not dilated. ADRENALS: Normal. KIDNEYS/URINARY TRACT: No identified significant cystic or solid masses. Bilateral nonobstructing kidney stones. The largest measures 0.4 cm.. No hydronephrosis or hydroureter. Symmetric enhancement. Urinary bladder is unremarkable. GI: Postsurgical changes suggestive of terminal iliac knee with ileocolonic anastomosis without complication.. No significant diverticular disease. PERITONEUM: No ascites or free air. RETROPERITONEUM: No mass or adenopathy. REPRODUCTIVE: No significant abnormality. VASCULATURE: No abdominal aortic aneurysm. 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 MUSCULOSKELETAL: No significant abnormality. OTHER: No other abnormality. IMPRESSION: 1. No findings identified to suggest the etiology of the patient's symptoms. Cavernous transformation of the portal vein 2. 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 Bilateral punctate nonobstructing kidney stones. REFERENCE: Unless otherwise specified, no follow-up imaging is recommended for incidental renal and adrenal lesions per consensus recommendations based on imaging criteria. Further lab evaluation could be pursued based on clinical findings. Management of the Incidental Renal Mass on CT: A White Paper of the ACR Incidental Findings Committee. J Am Linda Radiol. 2018 Jun;15(2):264-273. Management of Incidental Adrenal Masses: A White Paper of the ACR Incidental Findings Committee. J Am Linda Radiol. 2017 Dec;14(8):7306-2505. THIS IS AN ELECTRONICALLY VERIFIED FINAL REPORT 01/25/2022 6:04 PM - Electronically signed by Oscar Long M.D. JA: ANTONINA Report ID: [id number] Reading Location: [place] [address] CT Entire Lower Extremity Right W Contrast EXAM DESCRIPTION: CT ENTIRE LOWER EXTREMITY RIGHT W CONTRAST REASON FOR STUDY: Right knee pain and swelling for few days after small scratch to knee. TECHNIQUE: Multidetector CT scan of the right lower extremity was performed after intravenous contrast. Coronal and sagittal images were reconstructed. Dose modulation adjustment of the mA and/or kV has been performed per MSK protocols according to patient size and indication CONTRAST TYPE/DOSE: 75mL of IOVERSOL 350 MG IODINE/ML INTRAVENOUS SYRINGE injected via intravenous COMPARISON: Radiograph dated January 24, 2022 FINDINGS: Bones: No fracture. No dislocation. Soft Tissues: There is nonspecific cutaneous thickening and subcutaneous stranding involving the distal thigh as well as the entire leg and foot. This is most pronounced anterior to the patella. A drainable fluid collection is not identified. Other: No other finding. IMPRESSION: 1. Diffuse cutaneous thickening and subcutaneous stranding involving the distal thigh as well as the entire leg and foot. This is compatible with cellulitis in the appropriate clinical setting. This is most pronounced anterior to the patella and may represent a component of bursitis potentially infectious. 2. A drainable fluid collection is not to suggest an abscess. THIS IS AN ELECTRONICALLY VERIFIED FINAL REPORT 01/25/2022 5:58 PM - Electronically signed by Oscar SARKAR: ANTONINA Report ID: [id number] Reading Location: [id number] US VEIN DUPLEX LOWER EXTREMITY RIGHT LIMITED, UNILATERAL [employer] Job ID: [id number] [employer] Document ID: [id number] Dictated date/time: RIGHT LOWER EXTREMITY VENOUS DUPLEX REASON FOR EXAM Erythema. FINDINGS ON THE RIGHT The right common femoral, femoral, popliteal, posterior tibial, peroneal, and great saphenous demonstrate spontaneous phasic flow that augments and are compressible. INTERPRETATION No evidence of deep or superficial venous thrombosis in the right lower extremity. Job ID/Internal Job ID: [id number] Radiology Review: I have reviewed the imaging with the following findings: X-rays and CT scan reviewed personally with the radiologist. No drainable abscess or fluid collection. No effusion over the knee. Diffuse softtissue swelling most pronounced over the patella Assessment /Plan Assessment/Plan: Prepatellar bursitis Right lower extremity edema Discussed further treatment plan with the patient. He has diffuse lower extremity edema and warmth over his prepatellar bursa. There is no erythema or signs of open wound. This is an odd presentationof possible infection. No signs of involvement of the right knee. He has not had any fevers or chills and white count has been trending down. Blood cultures with no growth today. Id consult pending. No surgical intervention from an orthopedic standpoint at this time. His symptoms appear to be lowerextremity swelling from a septic prepatellar bursitis and cellulitis. Will continue to follow documented in this encounter Nursing Notes * Danielle Lopez RN - 01/27/2022 6:00 PM CDT Patient discharged to home via wheelchair accompanied by KEVIN Jerez. Discharge instructions reviewed with patient and/or airport representative. Mobile pharmacy medications and/or prescriptions provided. Belongings/home medications returned. documented in this encounter ED Notes * Yenni Serrato RN - 01/24/2022 1:36 PM CDT Lab notified for results of Lactate and CMP collected at [address] Having trouble with analyzer, will return clerk results soon. Yenni Serrato RN 01/24/22 1337 * Shant Diaz MD - 01/24/2022 11:48 AM CDT HPI Chief Complaint Patient presents with ??? Knee Pain I have had pain to my right knee for the last 9-10 day I was working on concrete Inspirotecling I had a little infection I was seen in the ER I was started on antibiotic I saw my doctor he sent me here History provided by: Patient Knee Pain Location: Leg Time since incident: 10 days Leg location: R leg Pain details: Quality: Aching and throbbing Radiates to: Does not radiate Severity: Moderate Onset quality: Gradual Duration: 10 days Timing: Intermittent Progression: Waxing and waning Chronicity: New Dislocation: no Foreign body present: Unable to specify Tetanus status: Unknown Prior injury to area: Yes Worsened by: Nothing Relieved by: Antibiotic recurrent issue. Ineffective treatments: None tried Associated symptoms: swelling Associated symptoms: no back pain, no decreased ROM, no fatigue, no fever, no itching, no muscle weakness, no neck pain, no numbness, no stiffness and no tingling Swelling: Location: Leg Onset quality: Gradual Duration: 9 days Timing: Intermittent Progression: Unchanged Chronicity: New Risk factors: no recent illness Patient History: Patient Active Problem List Diagnosis Date Noted ??? HTN (hypertension) 02/13/2021 ??? Risk factors for obstructive sleep apnea 02/13/2021 ??? Cervical disc disorder with myelopathy of mid-cervical region 02/09/2021 ??? Chronic diarrhea 07/15/2020 ??? High risk medications (not anticoagulants) long-term use 07/15/2020 ??? Vitamin B12 deficiency 08/18/2018 ??? Overweight with body mass index (BMI) 25.0-29.9 12/20/2016 ??? Abnormal level of blood mineral 10/12/2016 ??? Chronic fatigue 10/12/2016 ??? Cramp and spasm 10/12/2016 ??? Crohn's disease of large intestine with other complication (HCC) 10/12/2016 ??? Postsurgical malabsorption, not elsewhere classified 10/12/2016 ??? Iron deficiency anemia 02/17/2015 ??? Erythrocytosis 12/07/2014 ??? PVT (portal vein thrombosis) 12/07/2014 ??? Vitamin D deficiency 11/30/2014 ??? Abdominal pain 12/15/2013 ??? Mouth ulceration 12/15/2013 ??? Nephrolithiasis 07/23/2013 ??? Inguinal pain 07/23/2013 ??? Arthralgia 09/25/2012 ??? High risk medication use 07/10/2012 ??? Hernia of anterior abdominal wall 03/13/2012 ??? Crohn's disease of both small and large intestine (HCC) 08/16/2010 Past Medical History: Diagnosis Date ??? Anemia ??? Anxiety and depression ??? Crohn's colitis (CMS/HCC) (HCC) ??? GERD (gastroesophageal reflux disease) ??? Hypertension Past Surgical History: Procedure Laterality Date ??? SMALL BOWEL RESECTION Family History Problem Relation Age of Onset ??? No Known Problems Mother ??? No Known Problems Father Social History Tobacco Use ??? Smoking status: Never ??? Smokeless tobacco: Never Substance and Sexual Activity ??? Drug use: Never ??? Sexual activity: Defer Alcohol Use: Not At Risk ??? Frequency of Alcohol Consumption: Monthly or less ??? Average Number of Drinks: 1 or 2 ??? Frequency of Binge Drinking: Never Alcohol Use: Not At Risk ??? Frequency of Alcohol Consumption: Monthly or less ??? Average Number of Drinks: 1 or 2 ??? Frequency of Binge Drinking: Never Social History Social History Narrative Marital History - Currently : (Added by TW Conv) No alcohol use : (Added by TW Conv) Review of Systems Review of Systems Constitutional: Negative for chills, fatigue and fever. HENT: Negative for ear pain and sore throat. Eyes: Negative for pain and visual disturbance. Respiratory: Negative for cough and shortness of breath. Cardiovascular: Negative for chest pain and palpitations. Gastrointestinal: Negative for abdominal pain and vomiting. Genitourinary: Negative for dysuria and hematuria. Musculoskeletal: Negative for arthralgias, back pain, neck pain and stiffness. Skin: Negative for color change, itching and rash. Neurological: Negative for seizures and syncope. All other systems reviewed and are negative. Physical Exam ED Triage Vitals [01/24/22 1015] Temp Pulse Resp BP SpO2 36.8 ??C (98.2 ??F) 78 18 152/85 96 % Temp src Heart Rate Source Patient Position BP Location FiO2 (%) Oral -- -- -- -- Height Height Method Weight Weight Method 1.88 m (6' 2 ) Stated 99.7 kg (219 lb 12.8 oz) Standing scale Physical Exam Vitals and nursing note reviewed. Constitutional: Appearance: He is well-developed. HENT: Head: Normocephalic and atraumatic. Eyes: Conjunctiva/sclera: Conjunctivae normal. Cardiovascular: Rate and Rhythm: Normal rate and regular rhythm. Heart sounds: Normal heart sounds. No murmur heard. Pulmonary: Effort: Pulmonary effort is normal. No respiratory distress. Breath sounds: Normal breath sounds. Abdominal: Palpations: Abdomen is soft. Tenderness: There is no abdominal tenderness. Musculoskeletal: Cervical back: Neck supple. Skin: General: Skin is warm and dry. Neurological: Mental Status: He is alert and oriented to person, place, and time. MDM Medical Decision Making Differential Diagnosis or Management Options: Prepatellar bursitis dry tap per Ortho was better with IV vancomycin increased pain swelling here for IV antibiotics check for blood clots admit discussed with Dr. Mcintyre earlier ED Course as of 01/24/22 1520 Time: 01/24 1234 Comment: Prepatellar bursitis discussed with ortho earlier admit for IV antibiotic recommended ceftriaxone vancomycin By: Shant Diaz MD Time: 01/24 1309 Comment: OA no leukocytosis By: Shant Diaz MD Time: 01/24 1350 Comment: No DVT By: Shant Diaz MD Final diagnoses: Infection of right prepatellar bursa Shant Diaz MD 01/24/22 1153 Shant Diaz MD 01/24/22 1525 * Eboni Grimaldo RN - 01/24/2022 10:16 AM CDT Patient seen in this ED on 01/20 for similar complaints. Patient reports continued right knee pain and swelling. Referred to orthopedics. Saw Dr Salamanca today who referred patient back to ED for IV antibiotics and ultrasound. Pain rated 10/10. CMS intact. Denies fever documented in this encounter Miscellaneous Notes * Plan of Care - Danielle Lopez RN - 01/27/2022 1:00 PM CDT Problem: Health Behavior: Goal: Understanding of discharge needs will improve Outcome: Progressing Problem: Lack of Knowledge: Goal: Ability to develop a pain control plan will improve Outcome: Progressing Goal: Ability to identify pain intensity on a pain scale and rate it consistently will improve Outcome: Progressing Goal: Ability to notify healthcare provider of pain before it becomes unmanageable or unbearable will improve Outcome: Progressing Problem: Medication: Goal: Satisfaction with pain management regimen will improve Outcome: Progressing Problem: Sensory: Goal: Ability to identify factors that increase the pain will improve Outcome: Progressing Goal: Pain level will decrease Outcome: Progressing Problem: Sensory: Goal: Ability to identify factors that increase the pain will improve Outcome: Progressing Goal: Pain level will decrease Outcome: Progressing Goals: Clinical Goals for the Shift: vss, rest, pain control. brenton IV antibiotic Summary: Pain pill given earlier, rates pain a 6 at this time. Sleeping at intervals, states hasn'tslept well the last 2 nights. Pedal pulses diminished bilaterally. Pleasant. Waiting for MRI to be done this afternoon. at bedside. * Plan of Care - Jennifer Cochran RN - 01/27/2022 12:27 AM CDT Goals: Clinical Goals for the Shift: vss, rest, pain control. brenton IV antibiotic Summary: pt c/o rt forearm discomfort. Requested HL to be rmoved. Clayton given times 2 this shift. Brenton IV antibiotic. VSS. Pt requesting to not restart IV yet. Explained to pt that he will need an IV for the MRI * Plan of Care - Solange Becerra RN - 01/26/2022 7:25 PM CDT Problem: Health Behavior: Goal: Understanding of discharge needs will improve Outcome: Progressing Problem: Lack of Knowledge: Goal: Ability to develop a pain control plan will improve Outcome: Progressing Goal: Ability to identify pain intensity on a pain scale and rate it consistently will improve Outcome: Progressing Goal: Ability to notify healthcare provider of pain before it becomes unmanageable or unbearable will improve Outcome: Progressing Problem: Medication: Goal: Satisfaction with pain management regimen will improve Outcome: Progressing Problem: Sensory: Goal: Ability to identify factors that increase the pain will improve Outcome: Progressing Goal: Pain level will decrease Outcome: Progressing Goals: Summary: rt knee and lower leg remains swollen, painful on certain movements * Plan of Care - Mar Nair RN - 01/26/2022 5:23 AM CDT Goals: Pain control, rest, IV antibiotics. Summary: Patient A&O x4. VSS. No changes since last assessment. Patient resting in bed, IV antibiotics administered per Jul. Safety maintained, Call light and bedside table within reach. Hourly rounding performed. * Plan of Care - Yissel Holder RN - 01/25/2022 5:05 PM CDT Goals: Summary: Problem: Health Behavior: Goal: Understanding of discharge needs will improve Outcome: Progressing Problem: Lack of Knowledge: Goal: Ability to develop a pain control plan will improve Outcome: Progressing Goal: Ability to identify pain intensity on a pain scale and rate it consistently will improve Outcome: Progressing Goal: Ability to notify healthcare provider of pain before it becomes unmanageable or unbearable will improve Outcome: Progressing Problem: Medication: Goal: Satisfaction with pain management regimen will improve Outcome: Progressing Problem: Sensory: Goal: Ability to identify factors that increase the pain will improve Outcome: Progressing Goal: Pain level will decrease Outcome: Progressing * Plan of Care - Mar Nair RN - 01/25/2022 7:49 AM CDT Goals: Pain control, IV antibiotics. Problem: Medication: Goal: Satisfaction with pain management regimen will improve 01/25/2022 0748 by Mar Nair RN Outcome: Progressing 01/25/2022 0245 by Mar Nair RN Outcome: Progressing Problem: Sensory: Goal: Pain level will decrease 01/25/2022 0748 by Mar Nair, GUEVARA Outcome: Progressing 01/25/2022 0245 by Mar Nair RN Outcome: Progressing Summary: Patient A&O x4, VSS, no changes since last assessment. IV antibiotics and Pain medication administered. Patient resting in bed, Call light and bedside table within reach. * Plan of Care - Zoe Edgar RN - 01/24/2022 5:09 PM CDT Goals: Summary: Problem: Health Behavior: Goal: Understanding of discharge needs will improve Outcome: Progressing Problem: Lack of Knowledge: Goal: Ability to develop a pain control plan will improve Outcome: Progressing Goal: Ability to identify pain intensity on a pain scale and rate it consistently will improve Outcome: Progressing Goal: Ability to notify healthcare provider of pain before it becomes unmanageable or unbearable will improve Outcome: Progressing Problem: Medication: Goal: Satisfaction with pain management regimen will improve Outcome: Progressing Problem: Sensory: Goal: Ability to identify factors that increase the pain will improve Outcome: Progressing Goal: Pain level will decrease Outcome: Progressing documented in this encounter Plan of Treatment Upcoming Encounters Date Type Department Care Team (Late st Contact Info) Description 05/22/2024 10:45 AM [facility] [id number] [place] [address] Nikolay Boucher MD [address] [facility] [place] [address] 05/22/2024 10:45 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 - 05/22/2024 11:15 AM [facility] Endoscopy [id number] [address] Nikolay Boucher MD [address] [place] [address] EGD Pending Results Name Type Priority Associated Diagnoses Date /Time Erythrocyte sedimentation rate Lab Routine 01/25/2022 8:46 AM CDT CRP (acute phase) Lab Routine 022 8:46 AM CDT Scheduled Orders Name Type Priority Associated Diagnoses Orde r Schedule Erythrocyte sedimentation rate Lab Routine Once for 1 Occurrences starting 01/25/2022 until 01/25/2022 CRP (acute phase) Lab Routine Once fo r 1 Occurrences starting 01/25/2022 until 01/25/2022 Histoplasma Antigen Urine Microbiology Routine Once for 1 Occurrences starting 01/26/2022 until 01/26/2022 Scheduled Procedures Name Priority Associated Diagnoses Date/Ti me ESOPHAGOGASTRODUODENOSCOPY Crohn's disease of both small and large intestine with intestinal obstruction (HCC) 05/22/2024 10:45 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 documented as of this encounter Procedures Procedure Name Priority Date/Time Associated Diagnosis Comments MRI KNEE RIGHT W WO CONTRAST IP Routine 01/27/2022 2:17 PM CDT VANCOMYCIN LEVEL TROUGH Timed 01/27/2022 11:33 AM CDT EGFR Routine 01/27/2022 7:07 AM CDT DIFFERENTIAL AUTO Routine 01/27/2022 7:0 7 AM CDT CBC WITH AUTO DIFFERENTIAL Routine 01/27/2022 7:07 AM CDT COMPREHENSIVE METABOLIC PANEL Routine 01/27/2022 7:07 AM CDT LA REFLEX TO QUANTITATIVE AND DSDNA Routine 01/26/2022 7:55 PM CDT TB TEST, QUANTIFERON GOLD Routine 01/26/2022 7:55 PM CDT RHEUMATOID FACTOR Routine 01/26/2022 7:5 5 PM CDT URIC ACID Routine 01/26/2022 7:55 PM CDT EGFR Routine 01/26/2022 4:17 AM CDT DIFFERENTIAL AUTO Routine 01/26/2022 4:1 7 AM CDT CBC WITH AUTO DIFFERENTIAL Routine 01/26/2022 4:17 AM CDT COMPREHENSIVE METABOLIC PANEL Routine 01/26/2022 4:17 AM CDT VANCOMYCIN LEVEL TROUGH Timed 01/25/2022 10:[address] ENTIRE LOWER EXTREMITY RIGHT W CONTRAST IP Routine 01/25/2022 3:[address] ABDOMEN PELVIS W CONTRAST IP Routine 01/25/2022 3:32 PM CDT EGFR Routine 01/25/2022 8:46 AM CDT DIFFERENTIAL AUTO Routine 01/25/2022 8:4 6 AM CDT CBC WITH AUTO DIFFERENTIAL Routine 01/25/2022 8:46 AM CDT ERYTHROCYTE SEDIMENTATION RATE Routine 01/25/2022 8:46 AM CDT CRP (ACUTE PHASE) Routine 01/25/2022 8:4 6 AM CDT COMPREHENSIVE METABOLIC PANEL Routine 01/25/2022 8:46 AM CDT BLOOD CULTURE STAT 01/24/2022 12:23 PM CDT SEPSIS LACTATE WITH REFLEX Routine 01/24/2022 12:19 PM CDT EGFR STAT 01/24/2022 12:19 PM CDT DIFFERENTIAL AUTO STAT 01/24/2022 12: 19 PM CDT CBC WITH AUTO DIFFERENTIAL STAT 01/24/2022 12:19 PM CDT BLOOD CULTURE STAT 01/24/2022 12:19 PM CDT APTT STAT 01/24/2022 12:19 PM CDT PROTIME-INR STAT 01/24/2022 12:19 PM CDT COMPREHENSIVE METABOLIC PANEL STAT 01/24/2022 12:19 PM CDT US VEIN DUPLEX LOWER EXTREMITY RIGHT LIMITED ED 01/24/2022 11:18 AM CDT XR KNEE RIGHT 3 VIEWS ED 01/24/2022 11:00 AM CDT documented in this encounter Results * MRI Knee Right W WO Contrast (01/27/2022 2:17 PM CDT) Anatomical Region Laterality Modality Lower Extremities Right Magnetic Reson ance 01/27/2022 4:30 PM CDT Narrative 01/27/2022 4:49 PM CDT EXAM DESCRIPTION: ?? MRI KNEE RIGHT W WO CONTRAST REASON FOR STUDY: ?? Knee pain acute in immunosuppressed patient ?? Right knee pain and swelling x 10 days after a small abrasion to the knee area. CT 01/25 anterior patellar bursitis/infection. 20ml dotarem left forearm. ? TECHNIQUE: Multiplanar, multisequence MRI of the ?? right ??knee was performed before and after intravenous administration. ? CONTRAST TYPE/DOSE: ?? 20mL of GADOTERATE MEGLUMINE 0.5 MMOL/ML INTRAVENOUS SOLUTION (SO) ??injected COMPARISON: ?? CT 01/25/2022, radiographs 01/24/2022 FINDINGS: There is moderate prepatellar bursitis. ??There is a 6 mm enthesophyte at the quadriceps tendon insertion on the superior pole of the patella with associated edema-like signal intensity and enhancement along the anterior margin of the patella which is favored to be reflective of reactive osteitis. Redemonstrated is near circumferential infiltration of the subcutaneous adipose tissues of the imaged distal most thigh, about the knee, and imaged proximal calf with nonloculated fluid extending along the investing fascia of the anterior and lateral compartment right calf musculature which demonstrates slight enhancement ??favored to be reflective of bland edema with a component of concurrent cellulitis in the appropriate clinical setting. ??There is no discrete organized fluid collection. In the medial compartment, the meniscus is normal. ??There is no focal chondrosis or subchondral marrow edema. In the lateral compartment, the meniscus is normal. ??There is no focal chondrosis or subchondral marrow edema. In the patellofemoral compartment, there is focal deep partial-thickness/near full-thickness chondrosis of the central trochlear groove measuring approximately 6 mm as well as a slit-like near full-thickness chondral fissure of the central trochlear groove more proximally with associated subchondral marrow edema. ??There is slight chondral fibrillation along the lateral patellar facet. The anterior and posterior cruciate ligaments are intact. ??The extensor mechanism is intact. ??The medial collateral ligament, iliotibial band, fibular collateral ligament, biceps femoris tendon, conjoint tendon, popliteus tendon, and other posterolateral corner structures are intact. There is no fracture, stress fracture, osteonecrosis, or aggressive bone marrow replacing lesions. ??Red marrow repopulation in the distal femur is present. There is a trace knee joint effusion and tiny Monk's cyst. ??There is a multilobulated multi-septated structure adjacent to the superior margin of the Monk cyst inclusively measuring up to approximately 18 x 12 mm which either reflects a ganglion cyst or loculated Monk cyst fluid. ??No joint bodies. There is mild amorphous edema-like signal intensity of the anterior fibers of distal vastus medialis and vastus lateralis muscles which could reflect reactive myositis. ??The neurovascular bundles are intact. IMPRESSION: 1. Moderate right prepatellar bursitis, likely infectious in etiology. ?? 2. A 6 mm enthesophyte at the right quadriceps tendon insertion on the superior pole of the patella with associated edema-like signal intensity and enhancement along the anterior margin of the patella, favored to be reflective of reactive osteitis. ??Early developing osteomyelitis remains a possibility. 3. Near circumferential infiltration of the subcutaneous adipose tissues of the imaged right distal most thigh, about the knee, and imaged proximal calf with nonloculated fluid extending along the investing fascia of the anterior and lateral compartment right calf musculature which demonstrates slight enhancement favored to be reflective of bland edema with a component of concurrent cellulitis in the appropriate clinical setting. ??No discrete organized fluid collection. ??No MR evidence of soft tissue gas. 4. ??Focal 6 mm deep partial-thickness/near full-thickness chondrosis of right central trochlear groove plus slit-like near full-thickness chondral fissure of central trochlear groove. ??Mild patellar chondral fibrillation. THIS IS AN ELECTRONICALLY VERIFIED FINAL REPORT 01/27/2022 4:49 PM - Electronically signed by ??Yuliana Gamboa M.D. AT: AT D: ??01/27/2022 4:49 PM T: ??01/27/2022 4:49 PM Report ID: [id number] Reading Location: ??[id number] Procedure Note Yuliana Gamboa MD - 01/27/2022 EXAM DESCRIPTION: MRI KNEE RIGHT W WO CONTRAST REASON FOR STUDY: Knee pain acute in immunosuppressed patient Right knee pain and swelling x 10 days after a small abrasion to the knee area. CT 01/25 anterior patellar bursitis/infection. 20ml dotarem leftforearm. TECHNIQUE: Multiplanar, multisequence MRI of the right knee wasperformed before and after intravenous administration. CONTRAST TYPE/DOSE: 20mL of GADOTERATE MEGLUMINE 0.5 MMOL/ML INTRAVENOUS SOLUTION (SO) injected COMPARISON: CT 01/25/2022, radiographs 01/24/2022 FINDINGS: There is moderate prepatellar bursitis. There is a 6 mm enthesophyte at the quadriceps tendon insertion on the superior pole ofthe patella with associated edema-like signal intensity and enhancement alongthe anterior margin of the patella which is favored to be reflective ofreactive osteitis. Redemonstrated is near circumferential infiltration of the subcutaneous adipose tissues of the imaged distal most thigh, about the knee, andimaged proximal calf with nonloculated fluid extending along the investing fasciaof the anterior and lateral compartment right calf musculature whichdemonstrates slight enhancement favored to be reflective of bland edema with acomponent of concurrent cellulitis in the appropriate clinical setting. There is no discrete organized fluid collection. In the medial compartment, the meniscus is normal. There is no focal chondrosis or subchondral marrow edema. In the lateral compartment, the meniscus is normal. There is no focal chondrosis or subchondral marrow edema. In the patellofemoral compartment, there is focal deeppartial-thickness/near full-thickness chondrosis of the central trochlear groove measuring approximately 6 mm as well as a slit-like near full-thickness chondralfissure of the central trochlear groove more proximally with associatedsubchondral marrow edema. There is slight chondral fibrillation along the lateral patellar facet. The anterior and posterior cruciate ligaments are intact. The extensor mechanism is intact. The medial collateral ligament, iliotibial band,fibular collateral ligament, biceps femoris tendon, conjoint tendon, popliteustendon, and other posterolateral corner structures are intact. There is no fracture, stress fracture, osteonecrosis, or aggressive bone marrow replacing lesions. Red marrow repopulation in the distal femur is present. There is a trace knee joint effusion and tiny Monk's cyst. There is a multilobulated multi-septated structure adjacent to the superior margin ofthe Monk cyst inclusively measuring up to approximately 18 x 12 mm whicheither reflects a ganglion cyst or loculated Monk cyst fluid. No joint bodies. There is mild amorphous edema-like signal intensity of the anterior fibersof distal vastus medialis and vastus lateralis muscles which could reflect reactive myositis. The neurovascular bundles are intact. IMPRESSION: 1. Moderate right prepatellar bursitis, likely infectious in etiology. 2. A 6 mm enthesophyte at the right quadriceps tendon insertion on the superior pole of the patella with associated edema-like signal intensityand enhancement along the anterior margin of the patella, favored to bereflective of reactive osteitis. Early developing osteomyelitis remains apossibility. 3. Near circumferential infiltration of the subcutaneous adipose tissuesof the imaged right distal most thigh, about the knee, and imaged proximalcalf with nonloculated fluid extending along the investing fascia of theanterior and lateral compartment right calf musculature which demonstrates slight enhancement favored to be reflective of bland edema with a component of concurrent cellulitis in the appropriate clinical setting. No discrete organized fluid collection. No MR evidence of soft tissue gas. 4. Focal 6 mm deep partial-thickness/near full-thickness chondrosis ofright central trochlear groove plus slit-like near full-thickness chondralfissure of central trochlear groove. Mild patellar chondral fibrillation. THIS IS AN ELECTRONICALLY VERIFIED FINAL REPORT 01/27/2022 4:49 PM - Electronically signed by Yuliana Gamboa M.D. AT: AT Report ID: [id number] Reading Location: [id number] Gee Ibrahim MD IMG MRI PROCEDURES Final Res ult * Vancomycin level trough (01/27/2022 11:33 AM CDT) Vancomycin trough 19.1 10.0 - 20.0 mcg/mL [facility] Comment:Testing performed by : [facility], [address] [place] [address]., [id number] Blood 01/27/2022 11:3 3 AM CDT 01/27/2022 11:48 AM CDT Gee Ibrahim MD LAB BLOOD ORDERABLES Final R esult [facility] [address] [facility] Department [place] [address] * eGFR (01/27/2022 7:07 AM CDT) eGFR 64 mL/min/1. 73 m2 [facility]DA Comment: Interpretive Data Reference Interval Normal ?>/= [...] Current interpretive data was last reviewed 2021. Testing performed by: [address] [address] Blood 01/27/2022 7:07 AM CDT 01/27/2022 7:24 AM CDT Maria E Lucero NP LAB BLOOD ORDERABLES Final Result [facility] [address] [facility] Department [place] [address] * (ABNORMAL) Differential, auto (01/27/2022 7:07 AM CDT) Neutrophil abs 5.8 1.7 - 6.5 K/cumm AMANDA Comment:Testing performed by : [address] [address] Imm gran abs 0.0 0.0 - 0.1 K/cumm AM[facility]DA Comment:Testing performed by : [address] [address] Lymphocyte abs 1.6 0.8 - 3.3 K/cumm AMANDA Comment:Testing performed by : [address] [address] Monocyte abs 0.9(H) 0.2 - 0.8 K/cumm AM[facility]DA Comment:Testing performed by : [address] [address] Eosinophil abs 0.4 0.0 - 0.5 K/cumm AMANDA Comment:Testing performed by : [address] [address] Basophil abs 0.1 0.0 - 0.1 K/cumm AM[facility]DA Comment:Testing performed by : [address] [address] Neutrophil pct 66.4 % [facility] Comment: Interpretive Data Percent cell count reference ranges are not reported, since discordance with absolute values may lead to misinterpretation of CBC data. Current Interpretive Data was last revised on 2017. Testing performed by: [address] [address] Imm gran pct 0.5 % [facility] Comment: Interpretive Data Percent cell count reference ranges are not reported, since discordance with absolute values may lead to misinterpretation of CBC data. Current Interpretive Data was last revised on 2017. Testing performed by: [address] [address] Lymphocyte pct 18.2 % [facility] Comment: Interpretive Data Percent cell count reference ranges are not reported, since discordance with absolute values may lead to misinterpretation of CBC data. Current Interpretive Data was last revised on 2017. Testing performed by: [address] [address] Monocyte pct 10.2 % [facility] Comment: Interpretive Data Percent cell count reference ranges are not reported, since discordance with absolute values may lead to misinterpretation of CBC data. Current Interpretive Data was last revised on 2017. Testing performed by: [address] [address] Eosinophil pct 4.0 % [facility] Comment: Interpretive Data Percent cell count reference ranges are not reported, since discordance with absolute values may lead to misinterpretation of CBC data. Current Interpretive Data was last revised on 2017. Testing performed by: [address] [address] Basophil pct 0.7 % [facility] Comment: Interpretive Data Percent cell count reference ranges are not reported, since discordance with absolute values may lead to misinterpretation of CBC data. Current Interpretive Data was last revised on 2017. Testing performed by: [address] [address] Blood 01/27/2022 7:07 AM CDT 01/27/2022 7:25 AM CDT Maria E Lucero ROVING [employer]ARN [employer]OR CHECKER LAB BLOOD ORDERABLES Final Result [facility] [address] [facility] Department [place] [address] * Comprehensive metabolic panel (01/27/2022 7:07 AM CDT) Sodium 138 135 - 145 mmol/L [facility]DA Comment:Testing performed by : [address], [place]., [address] Potassium, pl 3.6 3.3 - 4.9 mmol/L [facility] Comment:Testing performed by : [address], [place]., [address] Chloride 99 97 - 110 mmol/L [facility] Comment:Testing performed by : [address], [place]., [address] CO2 31 22 - 32 mmol/L [facility] Comment:Testing performed by : [address], [place]., [address] Anion gap 8 2 - 15 mmol/L [facility] Comment:Testing performed by : [address] [address] BUN 10 8 - 25 mg/dL [facility] Comment:Testing performed by : [address], [place]., [address] Creatinine 1.30 0.80 - 1.30 mg/dL [facility] Comment:Testing performed by : [address], [place]., [address] Glucose 104 70 - 199 mg/dL [facility] Comment: Interpretive Data Fasting glucose >/= 126 [...] classification and Diagnosis of Diabetes Diabetes Care 2017;40 (Suppl. 1):S11. Current interpretive data was last revised 2017. Testing performed by: [address], [place]., [address] Calcium 9.1 8.5 - 10.3 mg/dL [facility] GRACE Comment:Testing performed by : [address] [address] Bilirubin, total 0.7 0.1 - 1.2 mg/dL [facility] GRACE Comment:Testing performed by : [address] [address] Protein, pl 7.5 6.5 - 8.5 g/dL [facility] GRACE Comment:Testing performed by : [address] [address] Albumin 4.3 3.5 - 5.0 g/dL [facility] Comment:Testing performed by : [address], [place]., [address] Alk phos 96 40 - 130 Units/L [facility] Comment:Testing performed by : [address] [address] ALT 11 7 - 55 Units/L [facility] Comment:Testing performed by : [address] [address] AST 19 10 - 50 Units/L [facility] Comment:Testing performed by : [address] [address] Blood 01/27/2022 7:07 AM CDT 01/27/2022 7:24 AM CDT Maria E Lucero NP LAB BLOOD ORDERABLES Final Result [facility] [address] [facility] Department [place] [address] * (ABNORMAL) CBC with auto differential (01/27/2022 7:07 AM CDT) WBC 8.7 3.8 - 9.9 K/cumm [facility] GRACE Comment:Testing performed by : [address] [address] Hgb 13.6 13.0 - 17.5 g/dL [facility] GRACE Comment:Testing performed by : [address] [address] Hct 42.2 38.9 - 50.3 % [facility] GRACE Comment:Testing performed by : [address] [address] Plt 277 150 - 400 K/cumm [facility]DA Comment:Testing performed by : [address] [address] MPV 9.7 9.1 - 12.3 fL [facility] Comment:Testing performed by : [address] [address] RBC 5.09 4.30 - 5.80 M/cumm [facility]DA Comment:Testing performed by : [address] [address] MCV 82.9 81.3 - 96.4 fL [facility] Comment:Testing performed by : [address] [address] MCH 26.7(L) 27.1 - 33.3 pg [facility] Comment:Testing performed by : [address] [address] MCHC 32.2(L) 32.3 - 35.7 g/dL [facility] Comment:Testing performed by : [address] [address] RDW CV 14.1 11.1 - 14.9 % [facility] Comment:Testing performed by : [address] [address] RDW SD 42.0 35.7 - 48.1 fL [facility] Comment:Testing performed by : [address] [address] NRBC abs 0.00 0.00 - 0.01 K/cumm [facility]DA Comment:Testing performed by : [address] [address] Blood 01/27/2022 7:07 AM CDT 01/27/2022 7:25 AM CDT us Maria E Lucero NP LAB BLOOD ORDERABLES Final Result [facility] Department [place] [address] * Uric acid (01/26/2022 7:55 PM CDT) Uric acid 6.3 3.0 - 8.0 mg/dL [facility] Comment:Testing performed by : [facility], [address] [place] [address]., [address] Blood 01/26/2022 7:55 PM CDT 01/26/2022 8:02 PM CDT us Gee Ibrahim MD LAB BLOOD ORDERABLES Final R esult Performing Organization Address City/[facility]/ZIP Co de Phone Number [place] [id number] [facility] [place] [address] * LA Reflex to Quantitative and dsDNA (01/26/2022 7:55 PM CDT) Pathologist [facility] LA Negative AM[facility]DA Comment: Interpretive Data Normal range for LA Qualitative Antibody = Negative. 1. LA is performed using indirect immunofluorescence against HEp-2 cells 2. LA titers are performed on all positive qualitative results. 3. A significantly positive LA result is defined as a positive nuclear fluorescence at a titer of 1:80 or greater. 4. 15% of normal people above age 65 have significantly positive LA results. ??5% or less of normal people age 65 or under have significantly positive LA results. Current interpretive data was last revised on 2020. Testing performed by: [facility], [address] [place]., [address] Blood 01/26/2022 7:55 PM CDT 01/27/2022 1:22 AM CDT us Gee Ibrahim MD LAB BLOOD ORDERABLES Final R esult [facility] [address] [facility] [place] [address] * Rheumatoid factor (01/26/2022 7:55 PM CDT) Pathologist [facility] Rheumatoid factor, quant <10.0 <=15.0 IUnits/mL [facility]DA Blood 01/26/2022 7:55 PM CDT 01/26/2022 8:35 PM CDT Gee Ibrahim MD LAB BLOOD ORDERABLES Final R esult [facility] [id number] [facility] [place] [address] * TB test, quantiferon gold (01/26/2022 7:55 PM CDT) [facility] Quantiferon TB Gold Negative Negative AMANDA Comment: No interferon-gamma response to M. tuberculosis antigens was detected. Latent infection with M. tuberculosis is unlikely. A single negative result does not exclude infection with M. tuberculosis. In patients at high risk for M.tuberculosis infection, a second test should be considered in accordance with the 2017 ATS/IDSA/CDC Clinical Practice Guidelines for Diagnosis of Tuberculosis in Adults and Children [Gerardoinsneri CANDELARIO et. al. Clin. Infect. Dis. 2017;64(2):111-115]. The reference range for the 'TB1 Ag minus Nil Result' and 'TB2 Ag minus Nil Result' is an Interferon-gamma level <0.35 IU/mL. Testing performed by: [address] [address] TB-Nil -0.01 IUnits/mL AMANDA Comment:Testing performed by : [address] [address] TB2-Nil 0.01 IUnits/mL AMANDA Comment:Testing performed by : [address] [address] Mitogen-Nil 9.71 IUnits/mL AMANDA Comment:Testing performed by : [address] [address] NIL 0.02 IUnits/mL AMANDA Comment: Test Performed by: [facility] [address] [place] [address] Motion Picture Printer: Tanner Velasquez M.D. Ph.D.; CLIA# [id number] Testing performed by: [facility], [address] [place] [address]., [address] Blood 01/26/2022 7:55 PM CDT 01/26/2022 8:02 PM CDT us Gee Ibrahim MD LAB BLOOD ORDERABLES Final R esult AMANDA [address] [facility] Department [place] [address] * eGFR (01/26/2022 4:17 AM CDT) eGFR 78 mL/min/1. 73 m2 AMANDA GRACE Comment: Interpretive Data Reference Interval Normal ?>/= [...] Current interpretive data was last reviewed 2021. Testing performed by: [facility], [address] [place] [address]., [address] Blood 01/26/2022 4:17 AM CDT 01/26/2022 4:30 AM CDT us Maria E Lucero [employer] LAB BLOOD ORDERABLES Final Result AMANDA [address] [facility] Department [place] [address] * Differential, auto (01/26/2022 4:17 AM CDT) Neutrophil abs 4.2 1.7 - 6.5 K/cumm AMANDA Comment:Testing performed by : [address] [address] Imm gran abs 0.0 0.0 - 0.1 K/cumm AMANDA Comment:Testing performed by : [address] [address] Lymphocyte abs 1.9 0.8 - 3.3 K/cumm AMANDA Comment:Testing performed by : [address] [address] Monocyte abs 0.8 0.2 - 0.8 K/cumm AMANDA Comment:Testing performed by : [address] [address] Eosinophil abs 0.4 0.0 - 0.5 K/cumm AMANDA Comment:Testing performed by : [address] [address] Basophil abs 0.0 0.0 - 0.1 K/cumm AMANDA Comment:Testing performed by : [address] [address] Neutrophil pct 57.2 % AMANDA Comment: Interpretive Data Percent cell count reference ranges are not reported, since discordance with absolute values may lead to misinterpretation of CBC data. Current Interpretive Data was last revised on 2017. Testing performed by: [address] [address] Imm gran pct 0.3 % AMANDA Comment: Interpretive Data Percent cell count reference ranges are not reported, since discordance with absolute values may lead to misinterpretation of CBC data. Current Interpretive Data was last revised on 2017. Testing performed by: [address] [address] Lymphocyte pct 25.4 % AMANDA Comment: Interpretive Data Percent cell count reference ranges are not reported, since discordance with absolute values may lead to misinterpretation of CBC data. Current Interpretive Data was last revised on 2017. Testing performed by: [address] [address] Monocyte pct 10.6 % AMANDA Comment: Interpretive Data Percent cell count reference ranges are not reported, since discordance with absolute values may lead to misinterpretation of CBC data. Current Interpretive Data was last revised on 2017. Testing performed by: [address] [address] Eosinophil pct 6.0 % AMANDA Comment: Interpretive Data Percent cell count reference ranges are not reported, since discordance with absolute values may lead to misinterpretation of CBC data. Current Interpretive Data was last revised on 2017. Testing performed by: [address] [address] Basophil pct 0.5 % AMANDA Comment: Interpretive Data Percent cell count reference ranges are not reported, since discordance with absolute values may lead to misinterpretation of CBC data. Current Interpretive Data was last revised on 2017. Testing performed by: [address] [address] Blood 01/26/2022 4:17 AM CDT 01/26/2022 4:30 AM CDT Maria E Lucero [employer] LAB BLOOD ORDERABLES Final Result [facility] [address] [facility] Department [place] [address] * (ABNORMAL) Comprehensive metabolic panel (01/26/2022 4:17 AM CDT) Sodium 140 135 - 145 mmol/L AMANDA Comment:Testing performed by : [address] [address] Potassium, pl 3.7 3.3 - 4.9 mmol/L AMANDA Comment:Testing performed by : [address], [place]., [address] Chloride 105 97 - 110 mmol/L AMANDA Comment:Testing performed by : [address], [place]., [address] CO2 29 22 - 32 mmol/L AMANDA Comment:Testing performed by : [address], [place]., [address] Anion gap 6 2 - 15 mmol/L AMANDA Comment:Testing performed by : [address], [place]., [address] BUN 9 8 - 25 mg/dL AMANDA Comment:Testing performed by : [address], [place]., [address] Creatinine 1.10 0.80 - 1.30 mg/dL AMANDA Comment:Testing performed by : [address], [place]., [address] Glucose 101 70 - 199 mg/dL AMANDA Comment: Interpretive Data Fasting glucose >/= 126 [...] classification and Diagnosis of Diabetes Diabetes Care 2017;40 (Suppl. 1):S11. Current interpretive data was last revised 2017. Testing performed by: [address] [address] Calcium 8.3(L) 8.5 - 10.3 mg/dL AMANDA Comment:Testing performed by : [address] [address] Bilirubin, total 0.4 0.1 - 1.2 mg/dL AMANDA Comment:Testing performed by : [address], [place]., [address] Protein, pl 6.6 6.5 - 8.5 g/dL AMANDA Comment:Testing performed by : [address], [facility] [place] [address] Albumin 3.8 3.5 - 5.0 g/dL AMANDA GRACE Comment:Testing performed by : [address] [address] Alk phos 84 40 - 130 Units/L AMANDA GRACE Comment:Testing performed by : [address] [address] ALT 10 7 - 55 Units/L AMANDA GRACE Comment:Testing performed by : [address] [address] AST 14 10 - 50 Units/L AMANDA Comment:Testing performed by : [address] [address] Blood 01/26/2022 4:17 AM CDT 01/26/2022 4:30 AM CDT Maria E Lucero [employer] LAB BLOOD ORDERABLES Final Result Performing Organization Address City/State/[facility] Co de Phone Number AMANDA [address] Department [place] [address] * (ABNORMAL) CBC with auto differential (01/26/2022 4:17 AM CDT) [facility] WBC 7.4 3.8 - 9.9 K/cumm AMANDA GRACE Comment:Testing performed by : [address] [address] Hgb 12.2(L) 13.0 - 17.5 g/dL AMANDA GRACE Comment:Testing performed by : [address] [address] Hct 38.5(L) 38.9 - 50.3 % AMANDA GRACE Comment:Testing performed by : [address] [address] Plt 230 150 - 400 K/cumm AMANDA GRACE Comment:Testing performed by : [address] [address] MPV 9.6 9.1 - 12.3 fL AMANDA GRACE Comment:Testing performed by : [address] [address] RBC 4.52 4.30 - 5.80 M/cumm AMANDA Comment:Testing performed by : [address] [address] MCV 85.2 81.3 - 96.4 fL AMANDA Comment:Testing performed by : [address] [address] MCH 27.0(L) 27.1 - 33.3 pg AMANDA Comment:Testing performed by : [address] [address] MCHC 31.7(L) 32.3 - 35.7 g/dL AMANDA Comment:Testing performed by : [address], [address] RDW CV 14.1 11.1 - 14.9 % AMANDA Comment:Testing performed by : [address], [address] RDW SD 43.7 35.7 - 48.1 fL AMANDA Comment:Testing performed by : [address] [address] NRBC abs 0.00 0.00 - 0.01 K/cumm AMANDA Comment:Testing performed by : [address], [address] Blood 01/26/2022 4:17 AM CDT 01/26/2022 4:30 AM CDT Maria E Lucero [employer] LAB BLOOD ORDERABLES Final Result AMANDA [address] [facility] Department of Laboratories [place], [place] [id number] * Vancomycin level trough (01/25/2022 10:39 PM CDT) Vancomycin trough 15.1 10.0 - 20.0 mcg/mL AMANDA Comment:Testing performed by : [address] [address] Blood 01/25/2022 10:3 9 PM CDT 01/25/2022 11:15 PM CDT us Maria E Lucero [employer] LAB BLOOD ORDERABLES Final Result AMANDA [address] [facility] Department [place] [address] * CT Entire Lower Extremity Right W Contrast (01/25/2022 3:32 PM CDT) Anatomical Region Laterality Modality Lower Extremities Right Computed Tomog deena 01/25/2022 5:25 PM CDT Narrative 01/25/2022 5:58 PM CDT EXAM DESCRIPTION: ?? CT ENTIRE LOWER EXTREMITY RIGHT W CONTRAST REASON FOR STUDY: Right knee pain and swelling for few days after small scratch to knee. TECHNIQUE: Multidetector CT scan of the ?? right lower extremity ??was performed after intravenous contrast. ??Coronal and sagittal images were reconstructed. Dose modulation adjustment of the mA and/or kV has been performed per [facility] protocols according to patient size and indication CONTRAST TYPE/DOSE: ?? 75mL of IOVERSOL 350 MG IODINE/ML INTRAVENOUS SYRINGE ?? injected via ?? intravenous COMPARISON: ?? Radiograph dated January 24, 2022 FINDINGS: Bones: ?? No fracture. No dislocation. ?? Soft Tissues: ?? There is nonspecific cutaneous thickening and subcutaneous stranding involving the distal thigh as well as the entire leg and foot. ??This is most pronounced anterior to the patella. ??A drainable fluid collection is not identified. Other: ?? No other finding. IMPRESSION: ?? 1. ?? Diffuse cutaneous thickening and subcutaneous stranding involving the distal thigh as well as the entire leg and foot. ??This is compatible with cellulitis in the appropriate clinical setting. ??This is most pronounced anterior to the patella and may represent a component of bursitis potentially infectious. ?? 2. ?? A drainable fluid collection is not to suggest an abscess. THIS IS AN ELECTRONICALLY VERIFIED FINAL REPORT 01/25/2022 5:58 PM - Electronically signed by ??Oscar Long M.D. JA: ANTONINA D: ??01/25/2022 5:58 PM T: ??01/25/2022 5:58 PM Report ID: [id number] Reading Location: ??[id number] Procedure Note Oscar Long MD - 01/25/2022 EXAM DESCRIPTION: CT ENTIRE LOWER EXTREMITY RIGHT W CONTRAST REASON FOR STUDY: Right knee pain and swelling for few days after small scratch to knee. TECHNIQUE: Multidetector CT scan of the right lower extremity wasperformed after intravenous contrast. Coronal and sagittal images werereconstructed. Dose modulation adjustment of the mA and/or kV has been performed per [facility] protocols according to patient size and indication CONTRAST TYPE/DOSE: 75mL of IOVERSOL 350 MG IODINE/ML INTRAVENOUSSYRINGE injected via intravenous COMPARISON: Radiograph dated January 24, 2022 FINDINGS: Bones: No fracture. No dislocation. Soft Tissues: There is nonspecific cutaneous thickening and subcutaneous stranding involving the distal thigh as well as the entire leg and foot.This is most pronounced anterior to the patella. A drainable fluid collectionis not identified. Other: No other finding. IMPRESSION: 1. Diffuse cutaneous thickening and subcutaneous stranding involving the distal thigh as well as the entire leg and foot. This is compatible with cellulitis in the appropriate clinical setting. This is most pronounced anterior to the patella and may represent a component of bursitispotentially infectious. 2. A drainable fluid collection is not to suggest an abscess. THIS IS AN ELECTRONICALLY VERIFIED FINAL REPORT 01/25/2022 5:58 PM - Electronically signed by Oscar Long M.D. JA: ANTONINA Report ID: [id number] Reading Location: [id number] us Michael Glasgow MD IMG CT PROCEDURES Final Re sult * CT Abdomen Pelvis W Contrast (01/25/2022 3:32 PM CDT) Anatomical Region Laterality Modality Body N/A Computed Tomogra phy 01/25/2022 5:58 PM CDT Narrative 01/25/2022 6:04 PM CDT EXAM DESCRIPTION: ?? CT ABDOMEN PELVIS W CONTRAST REASON FOR STUDY: ?? Right lower extremity pain and swelling. TECHNIQUE: CT scan of the abdomen and pelvis performed with intravenous and ?? without ??oral contrast using helical scanning technique with dynamic intravenous contrast injection. Reconstructed coronal and sagittal MPR images reviewed. All images stored on PACS. Automated exposure control was used as a dose optimization technique for this examination. CONTRAST TYPE/DOSE: ?? 75mL of IOVERSOL 350 MG IODINE/ML INTRAVENOUS SYRINGE ?? injected via ?? intravenous COMPARISON: ?? MRI dated 2012. FINDINGS: LOWER CHEST: ?? Nodular airspace opacity in the left lower lobe may be infectious in etiology. ??No pleural pericardial effusion. LIVER: ?? Normal size. ??No identified cystic or solid masses. GALLBLADDER: ?? No stones identified. No wall thickening or inflammatory changes. BILE DUCTS: ?? No intrahepatic or extrahepatic ductal dilatation. SPLEEN: ?? Normal size. ??No focal lesions. PANCREAS: ?? No identified cystic or solid masses. No significant calcifications. No adjacent inflammation or peripancreatic fluid collections. Pancreatic duct not dilated. ?? ADRENALS: ?? Normal. KIDNEYS/URINARY TRACT: ?? No identified significant cystic or solid masses. ?? Bilateral nonobstructing kidney stones. ??The largest measures 0.4 cm.. ??No hydronephrosis or hydroureter. Symmetric enhancement. ?Urinary bladder is unremarkable. GI: ?? Postsurgical changes suggestive of terminal iliac knee with ileocolonic anastomosis without complication.. ??No significant diverticular disease. PERITONEUM: ?? No ascites or free air. RETROPERITONEUM: ?? No mass or adenopathy. REPRODUCTIVE: ?? No significant abnormality. VASCULATURE: ?? No abdominal aortic aneurysm. ?? 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 MUSCULOSKELETAL: ?? No significant abnormality. OTHER: ?? No other abnormality. IMPRESSION: ?? 1. ?? No findings identified to suggest the etiology of the patient's symptoms. Cavernous transformation of the portal vein 2. ?? 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 ?? Bilateral punctate nonobstructing kidney stones. REFERENCE: Unless otherwise specified, no follow-up imaging is recommended for incidental renal and adrenal lesions per consensus recommendations based on imaging criteria. Further lab evaluation could be pursued based on clinical findings. Management of the Incidental Renal Mass on CT: A White Paper of the ACR Incidental Findings Committee. J Am Linda Radiol. 2018 Jun;15(2):264-273. Management of Incidental Adrenal Masses: A White Paper of the ACR Incidental Findings Committee. J Am Linda Radiol. 2017 Dec;14(8):4461-2674. THIS IS AN ELECTRONICALLY VERIFIED FINAL REPORT 01/25/2022 6:04 PM - Electronically signed by ??Oscar Long M.D. JA: ANTONINA D: ??01/25/2022 6:04 PM T: ??01/25/2022 6:04 PM Report ID: [id number] Reading Location: ??[id number] Procedure Note Oscar Long MD - 01/25/2022 EXAM DESCRIPTION: CT ABDOMEN PELVIS W CONTRAST REASON FOR STUDY: Right lower extremity pain and swelling. TECHNIQUE: CT scan of the abdomen and pelvis performed with intravenousand without oral contrast using helical scanning technique with dynamic intravenous contrast injection. Reconstructed coronal and sagittal MPRimages reviewed. All images stored on PACS. Automated exposure control was used as a dose optimization technique forthis examination. CONTRAST TYPE/DOSE: 75mL of IOVERSOL 350 MG IODINE/ML INTRAVENOUSSYRINGE injected via intravenous COMPARISON: MRI dated 2012. FINDINGS: LOWER CHEST: Nodular airspace opacity in the left lower lobemay be infectious in etiology. No pleural pericardial effusion. LIVER: Normal size. No identified cystic or solid masses. GALLBLADDER: No stones identified. No wall thickening or inflammatory changes. BILE DUCTS: No intrahepatic or extrahepatic ductal dilatation. SPLEEN: Normal size. No focal lesions. PANCREAS: No identified cystic or solid masses. No significant calcifications. No adjacent inflammation or peripancreatic fluidcollections. Pancreatic duct not dilated. ADRENALS: Normal. KIDNEYS/URINARY TRACT: No identified significant cystic or solid masses. Bilateral nonobstructing kidney stones. The largest measures 0.4 cm.. No hydronephrosis or hydroureter. Symmetric enhancement. Urinary bladderis unremarkable. GI: Postsurgical changes suggestive of terminal iliac knee withileocolonic anastomosis without complication.. No significant diverticular disease. PERITONEUM: No ascites or free air. RETROPERITONEUM: No mass or adenopathy. REPRODUCTIVE: No significant abnormality. VASCULATURE: No abdominal aortic aneurysm. Likely cavernoustransformation of the portal vein. MUSCULOSKELETAL: No significant abnormality. OTHER: No other abnormality. IMPRESSION: 1. No findings identified to suggest the etiology of the patient'ssymptoms. Cavernous transformation of the portal vein 2. 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 Bilateral punctate nonobstructing kidney stones. REFERENCE: Unless otherwise specified, no follow-up imaging is recommendedfor incidental renal and adrenal lesions per consensus recommendations basedon imaging criteria. Further lab evaluation could be pursued based onclinical findings. Management of the Incidental Renal Mass on CT: A White Paper of the ACR Incidental Findings Committee. J Am Linda Radiol. 2018 Jun;15(2):264-273. Management of Incidental Adrenal Masses: A White Paper of the ACRIncidental Findings Committee. J Am Linda Radiol. 2017 Dec;14(8):8647-7459. THIS IS AN ELECTRONICALLY VERIFIED FINAL REPORT 01/25/2022 6:04 PM - Electronically signed by Oscar Long M.D. JA: ANTONINA Report ID: [id number] Reading Location: [id number] Michael Glasgow MD IMG CT PROCEDURES Final Re sult * (ABNORMAL) CRP (acute phase) (01/25/2022 8:46 AM CDT) Pathologist [facility] CRP 21.2(H) <=10.0 mg/L AMANDA GRACE Comment:Testing performed by : [address] [address] Blood 01/25/2022 8:46 AM CDT 01/25/2022 9:09 AM CDT Michael Glasgow MD LAB BLOOD ORDERABLES Final Result AMANDA GRACE [address] [facility] Department [place] [address] * Erythrocyte sedimentation rate (01/25/2022 8:46 AM CDT) Pathologist [facility] Erythrocyte sedimentation rate 14 1 - 20 mm/hr AMANDA GRACE Comment:Testing performed by : [address] [address] Blood 01/25/2022 8:46 AM CDT 01/25/2022 9:09 AM CDT us Michael Glasgow MD LAB BLOOD ORDERABLES Final Result AMANDA GRACE [address] [facility] Department [place] [address] * eGFR (01/25/2022 8:46 AM CDT) eGFR 64 mL/min/1. 73 m2 AMANDA GRACE Comment: Interpretive Data Reference Interval Normal ?>/= [...] Current interpretive data was last reviewed 2021. Testing performed by: [facility], [address] [place] [address]., [address] Blood 01/25/2022 8:46 AM CDT 01/25/2022 9:09 AM CDT us Maria E G. Lucero [employer] LAB BLOOD ORDERABLES Final Result AMANDA [address] [facility] Department [place] [address] * Differential, auto (01/25/2022 8:46 AM CDT) Neutrophil abs 5.5 1.7 - 6.5 K/cumm AMANDA Comment:Testing performed by : [address] [address] Imm gran abs 0.0 0.0 - 0.1 K/cumm AMANDA Comment:Testing performed by : [address] [address] Lymphocyte abs 1.3 0.8 - 3.3 K/cumm AMANDA Comment:Testing performed by : [address] [address] Monocyte abs 0.7 0.2 - 0.8 K/cumm AMANDA Comment:Testing performed by : [address] [address] Eosinophil abs 0.4 0.0 - 0.5 K/cumm AMANDA Comment:Testing performed by : [address] [address] Basophil abs 0.1 0.0 - 0.1 K/cumm AMANDA Comment:Testing performed by : [address] [address] Neutrophil pct 68.9 % [facility] Comment: Interpretive Data Percent cell count reference ranges are not reported, since discordance with absolute values may lead to misinterpretation of CBC data. Current Interpretive Data was last revised on 2017. Testing performed by: [address] [address] Imm gran pct 0.3 % AMANDA Comment: Interpretive Data Percent cell count reference ranges are not reported, since discordance with absolute values may lead to misinterpretation of CBC data. Current Interpretive Data was last revised on 2017. Testing performed by: [address] [address] Lymphocyte pct 16.1 % [facility] Comment: Interpretive Data Percent cell count reference ranges are not reported, since discordance with absolute values may lead to misinterpretation of CBC data. Current Interpretive Data was last revised on 2017. Testing performed by: [address] [address] Monocyte pct 8.6 % AMANDA Comment: Interpretive Data Percent cell count reference ranges are not reported, since discordance with absolute values may lead to misinterpretation of CBC data. Current Interpretive Data was last revised on 2017. Testing performed by: [address] [address] Eosinophil pct 5.5 % AMANDA Comment: Interpretive Data Percent cell count reference ranges are not reported, since discordance with absolute values may lead to misinterpretation of CBC data. Current Interpretive Data was last revised on 2017. Testing performed by: [address] [address] Basophil pct 0.6 % AMANDA Comment: Interpretive Data Percent cell count reference ranges are not reported, since discordance with absolute values may lead to misinterpretation of CBC data. Current Interpretive Data was last revised on 2017. Testing performed by: [address] [address] Blood 01/25/2022 8:46 AM CDT 01/25/2022 9:09 AM CDT Maria E Lucero [employer] LAB BLOOD ORDERABLES Final Result MAANDA [address] [facility] Department [place] [address] * Comprehensive metabolic panel (01/25/2022 8:46 AM CDT) Sodium 137 135 - 145 mmol/L AMANDA GRACE Comment:Testing performed by : [address] [address] Potassium, pl 4.6 3.3 - 4.9 mmol/L AMANDA GRACE Comment:Testing performed by : [address] [address] Chloride 103 97 - 110 mmol/L AMANDA Comment:Testing performed by : [address] [address] CO2 28 22 - 32 mmol/L AMANDA Comment:Testing performed by : [address], [place]., [address] Anion gap 6 2 - 15 mmol/L AMANDA Comment:Testing performed by : [address] [address] BUN 9 8 - 25 mg/dL AMANDA Comment:Testing performed by : [address], [place]., [address] Creatinine 1.30 0.80 - 1.30 mg/dL AMANDA Comment:Testing performed by : [address] [address] Glucose 96 70 - 199 mg/dL AMANDA Comment: Interpretive Data Fasting glucose >/= 126 [...] classification and Diagnosis of Diabetes Diabetes Care 2017;40 (Suppl. 1):S11. Current interpretive data was last revised 2017. Testing performed by: [address] [address] Calcium 8.5 8.5 - 10.3 mg/dL AMANDA Comment:Testing performed by : [address] [address] Bilirubin, total 0.6 0.1 - 1.2 mg/dL AMANDA Comment:Testing performed by : [address] [address] Protein, pl 6.7 6.5 - 8.5 g/dL AMANDA Comment:Testing performed by : [address] [address] Albumin 3.9 3.5 - 5.0 g/dL AMANDA Comment:Testing performed by : [address] [address] Alk phos 93 40 - 130 Units/L AMANDA GRACE Comment:Testing performed by : [address] [address] ALT 10 7 - 55 Units/L AMANDA GRACE Comment:Testing performed by : [address] [address] AST 16 10 - 50 Units/L AMANDA Comment:Testing performed by : [address] [address] Blood 01/25/2022 8:46 AM CDT 01/25/2022 9:09 AM CDT Maria E Lucero [employer] LAB BLOOD ORDERABLES Final Result Performing Organization Address City/State/[facility] Co de Phone Number AMANDA [facility] [place] [address] * (ABNORMAL) CBC with auto differential (01/25/2022 8:46 AM CDT) WBC 8.0 3.8 - 9.9 K/cumm AMANDA GRACE Comment:Testing performed by : [address] [address] Hgb 12.5(L) 13.0 - 17.5 g/dL AMANDA GRACE Comment:Testing performed by : [address] [address] Hct 40.8 38.9 - 50.3 % AMANDA GRACE Comment:Testing performed by : [address] [address] Plt 232 150 - 400 K/cumm AMANDA GRACE Comment:Testing performed by : [address] [address] MPV 9.8 9.1 - 12.3 fL AMANDA GRACE Comment:Testing performed by : [address] [address] RBC 4.71 4.30 - 5.80 M/cumm AMANDA GRACE Comment:Testing performed by : [address] [address] MCV 86.6 81.3 - 96.4 fL AMANDA GRACE Comment:Testing performed by : [address] [address] MCH 26.5(L) 27.1 - 33.3 pg AMANDA GRACE Comment:Testing performed by : [address] [address] MCHC 30.6(L) 32.3 - 35.7 g/dL AMANDA GRACE Comment:Testing performed by : [address] [address] RDW CV 14.2 11.1 - 14.9 % AMANDA GRACE Comment:Testing performed by : [address] [address] RDW SD 45.1 35.7 - 48.1 fL AMANDA GRACE Comment:Testing performed by : [address] [address] NRBC abs 0.00 0.00 - 0.01 K/cumm AMANDA GRACE Comment:Testing performed by : [address], [address] Blood 01/25/2022 8:46 AM CDT 01/25/2022 9:09 AM CDT Maria E Lucero NP LAB BLOOD ORDERABLES Final Result AMANDA GRACE [address] [facility] Department of Laboratories [place], [place] [id number] * Blood culture Blood Peripheral (01/24/2022 12:23 PM CDT) Report Final Report: No growth AMANDA GRACE Comment:Testing performed by : [facility], [address] [place]., [address] Blood (Peripheral) 01/24/2022 12:23 PM CDT 01/24/2022 5:27 PM CDT Narrative AMANDA GRACE - 01/29/2022 7:00 AM CDT From a different site than #1. Draw Blood cultures before administration of Antibiotics 1. ?Blood cultures are incubated for 4 days on a continuously monitored blood culture system. The first report of a negative culture is issued within 24 hours of receipt of the specimen in the laboratory. 2. ?Positive culture results are reported as soon as they are detected. 3. ?The most important factor for detection of microbes in the setting of bloodstream infection is the volume of blood submitted for culture. Failure to collect an optimal blood volume can result in false negative blood cultures. For pediatric patients, the recommended blood volume to collect is 1 mL of blood per year of patient age (up to 20 mL) per blood culture set. For adult patients, 20 mL of blood, divided equally between aerobic and anaerobic blood culture bottles, is recommended for each blood culture set. 4. ?For blood cultures with Gram-positive cocci, a rapid molecular test for organism identification may be performed using the Porphyrio Gram-Positive Blood Culture Assay. This assay detects microbial DNA in positive blood culture broth via hybridization of target DNA to capture oligonucleotides on a microarray. This assay has been cleared by the [place] Food and Drug Administration and its performance characteristics have been verified by the [facility]biology [facility]. 5. ?For questions about this culture, contact the Microbiology Laboratory at [phone]. Interpretive data was last revised on 2019. Shant Diaz MD LAB MICROBIOLOGY - NERAL ORDERABLES Final Result AMANDA [address] [facility] Department [place] [address] * eGFR (01/24/2022 12:19 PM CDT) [facility] eGFR 59 mL/min/1. 73 m2 AMANDA GRACE Comment: Interpretive Data Reference Interval Normal ?>/= [...] Current interpretive data was last reviewed 2021. Testing performed by: [address] [address] Blood 01/24/2022 12:1 9 PM CDT 01/24/2022 12:27 PM CDT us Quinn ABAD LAB BLOOD ORDERABLES Ibeth olson Result AMANDA [address] [facility] Department [place] [address] * (ABNORMAL) Differential, auto (01/24/2022 12:19 PM CDT) Neutrophil abs 6.0 1.7 - 6.5 K/cumm AMANDA GRACE Comment:Testing performed by : [address] [address] Imm gran abs 0.0 0.0 - 0.1 K/cumm AMANDA GRACE Comment:Testing performed by : [address] [address] Lymphocyte abs 1.5 0.8 - 3.3 K/cumm AMANDA GRACE Comment:Testing performed by : [address] [address] Monocyte abs 1.0(H) 0.2 - 0.8 K/cumm AMANDA Comment:Testing performed by : [address] [address] Eosinophil abs 0.5 0.0 - 0.5 K/cumm AMANDA Comment:Testing performed by : [address] [address] Basophil abs 0.1 0.0 - 0.1 K/cumm [facility] performed by : [address] [address] Neutrophil pct 65.9 % [facility] Comment: Interpretive Data Percent cell count reference ranges are not reported, since discordance with absolute values may lead to misinterpretation of CBC data. Current Interpretive Data was last revised on 2017. Testing performed by: [address] [address] Imm gran pct 0.2 % [facility] Comment: Interpretive Data Percent cell count reference ranges are not reported, since discordance with absolute values may lead to misinterpretation of CBC data. Current Interpretive Data was last revised on 2017. Testing performed by: [address] [address] Lymphocyte pct 16.9 % [facility] Comment: Interpretive Data Percent cell count reference ranges are not reported, since discordance with absolute values may lead to misinterpretation of CBC data. Current Interpretive Data was last revised on 2017. Testing performed by: [address] [address] Monocyte pct 10.6 % [facility] Comment: Interpretive Data Percent cell count reference ranges are not reported, since discordance with absolute values may lead to misinterpretation of CBC data. Current Interpretive Data was last revised on 2017. Testing performed by: [address] [address] Eosinophil pct 5.8 % [facility] Comment: Interpretive Data Percent cell count reference ranges are not reported, since discordance with absolute values may lead to misinterpretation of CBC data. Current Interpretive Data was last revised on 2017. Testing performed by: [address] [address] Basophil pct 0.6 % AMANDA GRACE Comment: Interpretive Data Percent cell count reference ranges are not reported, since discordance with absolute values may lead to misinterpretation of CBC data. Current Interpretive Data was last revised on 2017. Testing performed by: [facility], [address] [place] [address]., [address] Blood 01/24/2022 12:1 9 PM CDT 01/24/2022 12:27 PM CDT us Quinn ABAD LAB BLOOD ORDERABLES Ibeth l Result AMANDA GRACE [address] [facility] Department [place] [address] * Blood culture Blood Peripheral (01/24/2022 12:19 PM CDT) Report Final Report: No growth AMANDA GRACE Comment:Testing performed by : [facility], [address] [place]., [address] Blood (Peripheral) 01/24/2022 12:19 PM CDT 01/24/2022 5:27 PM CDT Narrative AMANDA GRACE - 01/29/2022 7:00 AM CDT Draw Blood cultures before administration of Antibiotics 1. ?Blood cultures are incubated for 4 days on a continuously monitored blood culture system. The first report of a negative culture is issued within 24 hours of receipt of the specimen in the laboratory. 2. ?Positive culture results are reported as soon as they are detected. 3. ?The most important factor for detection of microbes in the setting of bloodstream infection is the volume of blood submitted for culture. Failure to collect an optimal blood volume can result in false negative blood cultures. For pediatric patients, the recommended blood volume to collect is 1 mL of blood per year of patient age (up to 20 mL) per blood culture set. For adult patients, 20 mL of blood, divided equally between aerobic and anaerobic blood culture bottles, is recommended for each blood culture set. 4. ?For blood cultures with Gram-positive cocci, a rapid molecular test for organism identification may be performed using the Verigene Gram-Positive Blood Culture Assay. This assay detects microbial DNA in positive blood culture broth via hybridization of target DNA to capture oligonucleotides on a microarray. This assay has been cleared by the [place] Food and Drug Administration and its performance characteristics have been verified by the [facility]biology [facility]. 5. ?For questions about this culture, contact the Microbiology Laboratory at [phone]. Interpretive data was last revised on 2019. us Shant Diaz MD LAB MICROBIOLOGY - NERAL ORDERABLES Final Result Performing Organization Address City/[facility] Co de Phone Number AMANDA [address] [facility] [place], [place] [id number] * aPTT (01/24/2022 12:19 PM CDT) aPTT 28 22 - 37 sec AMANDA Comment: Interpretive data aPTT test has not been evaluated for monitoring heparin therapy. The anti-Xa is the preferred test. Current interpretive data was last revised on 2019. Testing performed by: [address] [address] Blood 01/24/2022 12:1 9 PM CDT 01/24/2022 12:27 PM CDT us Shant Diaz MD LAB BLOOD ORDERABLES Final Result Performing Organization Address [facility] de Phone Number AMANDA [address] [facility] [place] [address] * Protime-INR (01/24/2022 12:19 PM CDT) PT 12.9 12.0 - 14.6 sec AMANDA Comment:Testing performed by : [address] [address] INR 1.0 0.9 - 1.2 AMANDA GRACE Comment: Ref Range High Interpretive data Oral anticoagulant therapeutic ranges: Venous thromboembolism prophylaxis or treatment: 2.0-3.0 CARDIOLOGY Standard range: 2.0-3.0 High-intensity range: 2.5-3.5 Refer to indication-specific guidelines for appropriate target ranges for prosthetic heart valve replacement. Current interpretive data was last revised on 2019. Testing performed by: [address] [address] Blood 01/24/2022 12:1 9 PM CDT 01/24/2022 12:27 PM CDT us Shant Diaz MD LAB BLOOD ORDERABLES Final Result Performing Organization Address [facility] Co de Phone Number [address] [place] [address] * Sepsis Lactate w/ Reflex (01/24/2022 12:19 PM CDT) Pathologist [facility] Sepsis Lactate 1.0 0.7 - 2.0 mmol/L AMANDA Comment:Testing performed by : [address] [address] Blood 01/24/2022 12:1 9 PM CDT 01/24/2022 12:27 PM CDT us Shant Diaz MD LAB BLOOD ORDERABLES Final Result Performing Organization Address [facility] Co de Phone Number [address] [place] [address] * (ABNORMAL) Comprehensive metabolic panel (01/24/2022 12:19 PM CDT) Pathologist [facility] Sodium 140 135 - 145 mmol/L AMANDA Comment:Testing performed by : [address] [address] Potassium, pl 4.6 3.3 - 4.9 mmol/L AMANDA Comment:Testing performed by : [address] [address] Chloride 103 97 - 110 mmol/L AMANDA Comment:Testing performed by : [address] [address] CO2 25 22 - 32 mmol/L AMANDA Comment:Testing performed by : [address] [address] Anion gap 12 2 - 15 mmol/L AMANDA Comment:Testing performed by : [address] [address] BUN 13 8 - 25 mg/dL AMANDA Comment:Testing performed by : [address] [address] Creatinine 1.40(H) 0.80 - 1.30 mg/dL AMANDA Comment:Testing performed by : [address] [address] Glucose 96 70 - 199 mg/dL AMANDA Comment: Interpretive Data Fasting glucose >/= 126 [...] classification and Diagnosis of Diabetes Diabetes Care 2017;40 (Suppl. 1):S11. Current interpretive data was last revised 2017. Testing performed by: [address] [address] Calcium 8.6 8.5 - 10.3 mg/dL AMANDA Comment:Testing performed by : [address] [address] Bilirubin, total 0.4 0.1 - 1.2 mg/dL AMANDA Comment:Testing performed by : [address] [address] Protein, pl 7.3 6.5 - 8.5 g/dL AMANDA Comment:Testing performed by : [address] [address] Albumin 4.2 3.5 - 5.0 g/dL AMANDA Comment:Testing performed by : [address] [address] Alk phos 104 40 - 130 Units/L AMANDA Comment:Testing performed by : [address] [address] ALT 15 7 - 55 Units/L AMANDA GRACE Comment:Testing performed by : [address] [address] AST 22 10 - 50 Units/L AMANDA GRACE Comment:Testing performed by : [address] [address] Blood 01/24/2022 12:1 9 PM CDT 01/24/2022 12:27 PM CDT us Quinn ABAD LAB BLOOD ORDERABLES Ibeth l Result AMANDA [address] [facility] Department [place] [address] * (ABNORMAL) CBC with auto differential (01/24/2022 12:19 PM CDT) WBC 9.1 3.8 - 9.9 K/cumm AMANDA GRACE Comment:Testing performed by : [address] [address] Hgb 13.1 13.0 - 17.5 g/dL AMANDA GRACE Comment:Testing performed by : [address] [address] Hct 42.2 38.9 - 50.3 % AMANDA GRACE Comment:Testing performed by : [address] [address] Plt 259 150 - 400 K/cumm AMANDA GRACE Comment:Testing performed by : [address] [address] MPV 9.1 9.1 - 12.3 fL AMANDA GRACE Comment:Testing performed by : [address] [address] RBC 4.85 4.30 - 5.80 M/cumm AMANDA GRACE Comment:Testing performed by : [address] [address] MCV 87.0 81.3 - 96.4 fL AMANDA GRACE Comment:Testing performed by : [address] [address] MCH 27.0(L) 27.1 - 33.3 pg AMANDA GRACE Comment:Testing performed by : [address] [address] MCHC 31.0(L) 32.3 - 35.7 g/dL AMANDA GRACE Comment:Testing performed by : [address], [address] RDW CV 14.4 11.1 - 14.9 % AMANDA Comment:Testing performed by : [address] [address] RDW SD 46.1 35.7 - 48.1 fL AMANDA Comment:Testing performed by : [address], [address] NRBC abs 0.00 0.00 - 0.01 K/cumm AMANDA Comment:Testing performed by : [address], [address] Blood 01/24/2022 12:1 9 PM CDT 01/24/2022 12:27 PM CDT us Quinn ABAD LAB BLOOD ORDERABLES Ibeth l Result Performing Organization Address City/State/[facility] Co de Phone Number AMANDA [address] [facility] Department [place] [address] * US VEIN DUPLEX LOWER EXTREMITY RIGHT LIMITED, UNILATERAL (01/24/2022 11:18 AM CDT) Anatomical Region Laterality Modality Vascular Right Ultrasound 01/24/2022 Narrative 01/30/2022 7:55 AM CDT [employer] Job ID: [id number] [employer] Document ID: [id number] Dictated date/time: [id number] RIGHT LOWER EXTREMITY VENOUS DUPLEX REASON FOR EXAM Erythema. FINDINGS ON THE RIGHT The right common femoral, femoral, popliteal, posterior tibial, peroneal, and great saphenous demonstrate spontaneous phasic flow that augments and are compressible. INTERPRETATION No evidence of deep or superficial venous thrombosis in the right lower extremity. 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 Erythema ?? Right knee pain x9 days. ? TECHNIQUE: ?? 3 ??radiographic views acquired of the right knee. COMPARISON: ?? 01/20/2022 FINDINGS: BONES/JOINTS: ?? No acute fracture, malalignment or osseous abnormalities. ?? Mild medial and patellofemoral compartment knee osteoarthritis. SOFT TISSUES: ?? Unremarkable. OTHER: ?? No other significant finding. IMPRESSION: ?? No acute osseous abnormality. THIS IS AN ELECTRONICALLY VERIFIED FINAL REPORT 01/24/2022 11:34 AM - Electronically signed by ??Luis GELLER: YIMI D: ??01/24/2022 11:34 AM T: ??01/24/2022 11:34 AM Report ID: [id number] Reading Location: ??[id number] Procedure Note Luis Gross MD - 01/24/2022 EXAM DESCRIPTION: XR KNEE RIGHT 3 VIEWS REASON FOR STUDY: Erythema Right knee pain x9 days. TECHNIQUE: 3 radiographic views acquired of the right knee. COMPARISON: 01/20/2022 FINDINGS: BONES/JOINTS: No acute fracture, malalignment or osseous abnormalities. Mild medial and patellofemoral compartment knee osteoarthritis. SOFT TISSUES: Unremarkable. OTHER: No other significant finding. IMPRESSION: No acute osseous abnormality. THIS IS AN ELECTRONICALLY VERIFIED FINAL REPORT 01/24/2022 11:34 AM - Electronically signed by Luis GELLER: YIMI Report ID: [id number] Reading Location: [id number] Quinn ABAD IMG XR PROCEDURES Final R esult documented in this encounter Visit Diagnoses Diagnosis Prepatellar bursitis- Primary Infection of right prepatellar bursa History of Crohn's disease Acute renal failure, unspecified acute renal failure type (HCC) Chronic hypertension Chronic hypertension Crohn's disease of both small and large intestine (HCC) Chronic diarrhea Diarrhea Stage 3a chronic kidney disease (HCC) Cellulitis Cellulitis and abscess of unspecified site Infection of right prepatellar bursa History of Crohn's disease Crohn's disease of both small and large intestine with intestinal obstruction (HCC) documented in this encounter Admitting Diagnoses Diagnosis Prepatellar bursitis Cellulitis Cellulitis and abscess of unspecified site Infection of right prepatellar bursa History of Crohn's disease documented in this encounter Administered Medications Inactive Administered Medications - up to 3 most recent administrations Medication Order MAR Action Action Date Dose Rate Site acetaminophen (TYLENOL) tablet 650 mg 650 mg, oral, Every 4 hours PRN, fever, fever greater than 38.3 C, Starting on Sat01/24/22 at 1647, Indications: Fever, PainIndications:Fever,Pain Given 01/25/2022 8:47 AM CDT 650 mg amLODIPine (NORVASC) tablet 5 mg 5 mg, oral, Every morning, First dose on Sana 01/25/22 at 0900 Given 01/26/2022 8:58 AM CDT 5 mg Given 01/25/2022 8:48 AM CDT 5 mg Carrier Fluids for Secondary Infusion - 0.9% Sodium Chloride 30 mL, intravenous, As needed, For priming tubing and/or flushing, Starting on Sat01/24/22 at 1647, 0-250 ml/hr to flush line after IV infusions when no maintenance IV ordered. Infuse 30mL at the same rate as the secondary infusion. Run as primary IV, not intended for KVO. cefTRIAXone (ROCEPHIN) 2,000 mg/20 mL in sterile water (premix) 2,000 mg 2,000 mg, intravenous, at 1,200 mL/hr, Administer over 1 Minutes, Once, On Sat01/24/22 at 1126, For 1 dose, Indications: Skin/Soft Tissue InfectionIndications:Skin /Soft Tissue Infection Given 01/24/2022 12:29 PM CDT 2,000 mg 1200 mL/hr Left Antecubital cefTRIAXone (ROCEPHIN) 2,000 mg/20 mL in sterile water (premix) 2,000 mg 2,000 mg, intravenous, at 1,200 mL/hr, Administer over 1 Minutes, Every 24 hours scheduled, First dose on Sat01/25/22 at 0900, Indications: Bone/Joint Infection, Skin/Soft Tissue InfectionIndications:Bone /Joint Infection,Skin/Soft Tissue Infection Given 01/27/2022 8:24 AM CDT 2,000 mg 1200 mL/hr Given 01/26/2022 8:58 AM CDT 2,000 mg 1200 mL/hr Given 01/25/2022 8:47 AM CDT 2,000 mg 1200 mL/hr folic acid (FOLVITE) tablet 1 mg 1 mg, oral, Every morning, First dose on Sana 01/25/22 at 0900 Given 01/27/2022 8:26 AM CDT 1 mg Given 01/26/2022 8:58 AM CDT 1 mg Given 01/25/2022 8:48 AM CDT 1 mg gadoterate meglumine 0.5 mmol/mL injection 20 mL 20 mL, intravenous, Once in imaging, contrast, Starting on Sat01/27/22 at 1417, For 1 dose Contrast Given 01/27/2022 2:18 PM CDT 20 mL Left Forearm hydroCHLOROthiazide (HYDRODIURIL) tablet 12.5 mg 12.5 mg, oral, Daily, First dose on Sat01/26/22 at 1445 Given 01/27/2022 8:24 AM CDT 12.5 mg Given 01/26/2022 3:00 PM CDT 12.5 mg HYDROcodone-acetaminophen (NORCO) 7.5-325 mg per tablet 1 tablet 1 tablet, oral, Every 6 hours PRN, 1st line for pain, Starting on Sat01/24/22 at 1647, Indications: PainIndications:Pain Given 01/27/2022 5:28 PM CDT 1 tablet Given 01/27/2022 11:30 AM CDT 1 tablet Given 01/27/2022 4:12 AM CDT 1 tablet HYDROmorphone (DILAUDID) injection 0.5 mg 0.5 mg, intravenous, Administer over 2 Minutes, Once, On Sat01/24/22 at 1503, For 1 dose Given 01/24/2022 3:04 PM CDT 0.5 mg HYDROmorphone (DILAUDID) injection 0.5 mg 0.5 mg, intravenous, Administer over 2 Minutes, Every 3 hours PRN, 2nd line for pain, Starting on Sat01/24/22 at 1606 Given 01/24/2022 9:57 PM CDT 0.5 mg Given 01/24/2022 6:38 PM CDT 0.5 mg ioversoL (OPTIRAY 350) syringe 75 mL 75 mL, intravenous, Once in imaging, contrast, Starting on Sat01/25/22 at 1528, For 1 dose Contrast Given 01/25/2022 3:30 PM CDT 75 mL Left Antecubital losartan (COZAAR) tablet 100 mg 100 mg, oral, Daily, First dose on Sat01/25/22 at 0900, Autosub for irbesartan Given 01/27/2022 8:25 AM CDT 100 mg Given 01/26/2022 8:58 AM CDT 100 mg Given 01/25/2022 8:48 AM CDT 100 mg morphine injection 2 mg 2 mg, intravenous, Administer over 4 Minutes, Once, On Sat01/24/22 at 1149, For 1 dose, Indications: PainIndications:Pain Given 01/24/2022 12:03 PM CDT 2 mg Left Antecubital morphine injection 2 mg 2 mg, intravenous, Administer over 4 Minutes, Once, On Sat01/24/22 at 1352, For 1 dose, Indications: PainIndications:Pain Given 01/24/2022 1:54 PM CDT 2 mg nystatin 100,000 unit/mL oral suspension 500,000 Units 500,000 Units, swish & swallow, 4 times daily, First dose on Sat01/24/22 at 1700, Indications: oral candidiasisIndications:oral candidiasis Given 01/27/2022 4:54 PM CDT 500,000 Units Given 01/27/2022 11:30 AM CDT 500,000 Units Given 01/27/2022 8:25 AM CDT 500,000 Units ondansetron (ZOFRAN) injection 4 mg 4 mg, intravenous, Administer over 2 Minutes, Once, On Sat01/24/22 at 1149, For 1 dose, Indications: Nausea, VomitingIndications:Nausea,Vomiting Given 01/24/2022 12:02 PM CDT [address] (PROTONIX) extended release tablet 40 mg 40 mg, oral, Daily, First dose on Sat01/24/22 at 1648, Do not crush, chew, cut, dissolve, open or otherwise manipulate tablet/capsule., Indications: Treatment of Non-Bleeding Gastric DisorderIndications:Treatment of Non-Bleeding Gastric Disorder Given 01/27/2022 8:26 AM CDT 40 mg Given 01/26/2022 8:58 AM CDT 40 mg Given 01/25/2022 8:48 AM CDT 40 mg prochlorperazine (COMPAZINE) injection 5 mg 5 mg, intravenous, Administer over 2 Minutes, Every 6 hours PRN, nausea, vomiting, Use if unable to tolerate PO, Starting on Sat01/24/22 at 1647, Indications: Nausea and VomitingIndications:Naus ea and Vomiting prochlorperazine (COMPAZINE) tablet 5 mg 5 mg, oral, Every 6 hours PRN, nausea, vomiting, Starting on Sat01/24/22 at 1647, Indications: Nausea and VomitingIndications:Naus ea and Vomiting sodium chloride 0.9% bolus 2,991 mL 2,991 mL (30 mL/kg ? 99.7 kg), intravenous, Once, On Sat01/24/22 at 1126, For 1 dose, Infuse 999 ml/hr. Check vital signs and contact MD when complete to reassess. New Bag 01/24/2022 12:00 PM CDT 2,991 mL 999 mL/hr Left Antecubital sodium chloride 0.9% flush 0.5-20 mL 0.5-20 mL, intra-catheter, Every 8 hours scheduled, First dose on Sat01/24/22 at 1648, Flush volume based on line type and size. Given 01/26/2022 8:52 PM CDT 10 mL Given 01/26/2022 7:01 AM CDT 10 mL Given 01/25/2022 10:26 PM CDT 10 mL sodium chloride 0.9% flush 0.5-20 mL 0.5-20 mL, intra-catheter, As needed, line care, Starting on Sat01/24/22 at 1647, Flush volume based on line type and size. Flush before and after each use. sodium chloride 0.9% flush 125 mL 125 mL, intravenous, Once in imaging, line care, Starting on Sana 01/25/22 at 1528, For 1 dose Given 01/25/2022 3:30 PM CDT 125 mL Left Antecubital vancomycin 1250 mg/250 mL in sodium chloride 0.9% (premix) 1,250 mg 1,250 mg, intravenous, Administer over 60 Minutes, Every 12 hours, First dose (after last modification) on [place] 01/28/22 at 0000, Indications: Bone/Joint Infection, Skin/Soft Tissue InfectionIndications:Bone/Meri int Infection,Skin/Soft Tissue Infection vancomycin 1500 mg/250 mL in sodium chloride 0.9% (premix) 1,500 mg 1,500 mg (rounded from 1,495.5 mg = 15 mg/kg ? 99.7 kg), intravenous, Administer over 90 Minutes, Every 12 hours, First dose on Sana 01/25/22 at 0000, Indications: Bone/Joint Infection, Skin/Soft Tissue InfectionIndications:Bone/Meri int Infection,Skin/Soft Tissue Infection New Bag 01/27/2022 11:41 AM CDT 1,500 mg New Bag 01/26/2022 11:45 PM CDT 1,500 mg New Bag 01/26/2022 12:31 PM CDT 1,500 mg vancomycin 2,000 mg/520 mL in sodium chloride 0.9% (premix) 2,000 mg 2,000 mg, intravenous, Administer over 120 Minutes, Once, On Sat01/24/22 at 1230, For 1 dose, Indications: Blood Stream/Endovascular InfectionIndications:Blo od Stream/Endovascular Infection New Bag 01/24/2022 12:33 PM CDT 2,000 mg 520 mL/hr Left Antecubital documented in this encounter Discontinued Medications Medication Sig Discontinue Reason Start Date End Da te HYDROcodone-acetaminoph en (NORCO) 5-325 mg per tabletIndications:Pain Take 1 tablet by mouth every 6 (six) hours as needed for pain Alternate therapy 01/20/2022 01/24/2022 gabapentin (NEURONTIN) 300 mg capsule TAKE 1 CAPSULE(300 MG) BY MOUTH THREE TIMES DAILY Therapy completed 08/08/2021 01/24/2022 mupirocin (mupirocin) 2 % ointment Apply to each nostril 2 (two) times a day Use pea size amount in each nostril twice daily for five (5) days. After application, press sides of nose together and gently massage. Therapy completed 02/14/2021 01/24/2022 nystatin 100,000 unit/mL suspensionIndications:E sophageal yeast infection (CMS/HCC) (HCC) Take 5 ml PO 2 times daily,swish and swallow for 14 days Therapy completed 12/18/2021 01/24/2022 documented as of this encounter Historical Medications * This list may reflect changes made after this encounter. HYDROcodone-aceta minophen (NORCO) 7.5-325 mg per tablet Take 1 tablet by mouth every 6 (six) hours as needed for pain added in this encounter Active and Recently Administered Medications Times are shown in CDT. Scheduled Medication Order 01/25/2022 01/26/2022 01/27/2022 amitriptyline (ELAVIL) tablet 10 mg 10 mg, oral, Nightly, First dose on Sat01/24/22 at 2100 2225 (Not Given - Provider: Mar Nair RN - Reason: Patient/family refused) 2048 (Not Given - Provider: Jennifer Cochran RN - Reason: Patient/family refused) amLODIPine (NORVASC) tablet 5 mg (CANCELED) 5 mg, oral, Every morning, First dose on Sat01/25/22 at 0900 0848 (Given - Provider: Yissel Holder RN) 0858 (Given - Provider: Solange Becerra, GUEVARA) cefTRIAXone (ROCEPHIN) 2,000 mg/20 mL in sterile water (premix) 2,000 mg 2,000 mg, intravenous, at 1,200 mL/hr, Administer over 1 Minutes, Every 24 hours scheduled, First dose on Sana 01/25/22 at 0900, Indications: Bone/Joint Infection, Skin/Soft Tissue Infection 0847 (Given - Provider: Yissel Holder RN) 0858 (Given - Provider: Solange Becerra RN) 0824 (Given - Provider: Danielle Lopez RN) folic acid (FOLVITE) tablet 1 mg 1 mg, oral, Every morning, First dose on Sat01/25/22 at 0900 0848 (Given - Provider: Yissel Holder RN) 0858 (Given - Provider: Solange Becerra RN) 0826 (Given - Provider: Danielle Lopez RN) hydroCHLOROthiazide (HYDRODIURIL) tablet 12.5 mg 12.5 mg, oral, Daily, First dose on Sat01/26/22 at 1445 1500 (Given - Provider: Solange Becerra RN) 0824 (Given - Provider: Danielle Lopez RN) losartan (COZAAR) tablet 100 mg 100 mg, oral, Daily, First dose on Sat01/25/22 at 0900, Autosub for irbesartan 0848 (Given - Provider: Yissel Holder RN) 0858 (Given - Provider: Solange Becerra RN) 0825 (Given - Provider: Danielle Lopez RN) nystatin 100,000 unit/mL oral suspension 500,000 Units 500,000 Units, swish & swallow, 4 times daily, First dose on Sat01/24/22 at 1700, Indications: oral candidiasis 0847 (Given - Provider: Yissel Holder RN)1159 (Given - Provider: Yissel Holder RN)1618 (Given - Provider: Yissel Holder RN)2226 (Given - Provider: Mar Nair RN) 0859 (Given - Provider: Solange Becerra RN)1231 (Given - Provider: Solange Becerra RN)1803 (Given - Provider: Solange Becerra RN)2051 (Given - Provider: Jennifer Cochran RN) 0825 (Given - Provider: Danielle Lopez RN)1130 (Given - Provider: Danielle Lopez RN)1654 (Given - Provider: Danielle Lopez RN) pantoprazole DR (PROTONIX) extended release tablet 40 mg 40 mg, oral, Daily, First dose on Sat01/24/22 at 1648, Do not crush, chew, cut, dissolve, open or otherwise manipulate tablet/capsule., Indications: Treatment of Non-Bleeding Gastric Disorder 0848 (Given - Provider: Yissel Holder, GUEVARA) 0858 (Given - Provider: Solange Becerra, GUEVARA) 0826 (Given - Provider: Danielle Lopez, GUEVARA) sodium chloride 0.9% flush 0.5-20 mL(Linked Group 1) 0.5-20 mL, intra-catheter, Every 8 hours scheduled, First dose on Sat01/24/22 at 1648, Flush volume based on line type and size. 0700 (Given - Provider: Mar Nair RN)1250 (Given - Provider: Yissel Holder RN - Comment: gave with vanco)2226 (Given - Provider: Mar Nair RN) 0701 (Given - Provider: Mar Nair RN)1400 (Due)205 (Given - Provider: Jennifer Cochran, GUEVARA) 0504 (Not Given - Provider: Jennifer Cochran, GUEVARA - Reason: Loss of IV access)1524 (Not Given - Provider: Danielle Lopez RN - Reason: Other - Comment: given after iV Rocephin and Vanc doses) vancomycin 1250 mg/250 mL in sodium chloride 0.9% (premix) 1,250 mg 1,250 mg, intravenous, Administer over 60 Minutes, Every 12 hours, First dose (after last modification) on [place] 01/28/22 at 0000, Indications: Bone/Joint Infection, Skin/Soft Tissue Infection vancomycin 1500 mg/250 mL in sodium chloride 0.9% (premix) 1,500 mg (CANCELED) 1,500 mg (rounded from 1,495.5 mg = 15 mg/kg ? 99.7 kg), intravenous, Administer over 90 Minutes, Every 12 hours, First dose on Sana 01/25/22 at 0000, Indications: Bone/Joint Infection, Skin/Soft Tissue Infection 0029 (New Bag - Provider: Mar Nair RN)1159 (New Bag - Provider: Yissel Holder RN)2300 (Not Given - Provider: Mar Nair RN - Reason: Other - Comment: Draw vanco trough) 0109 (New Bag - Provider: Mar Nair RN)1231 (New Bag - Provider: Solange Becerra, GUEVARA)2345 (New Bag - Provider: Jennifer Cochran, GUEVARA) 1100 (Lab Draw - Provider: Tess Preston [facility] - Comment: Please draw vanco trough prior to hanging dose)1141 (New Bag - Provider: Danielle Lopez RN) PRN Medication Order 01/25/2022 01/26/2022 01/27/2022 acetaminophen (TYLENOL) tablet 650 mg 650 mg, oral, Every 4 hours PRN, fever, fever greater than 38.3 C, Starting on Sat01/24/22 at 1647, Indications: Fever, Pain 0847 (Given - Provider: Yissel Holder RN) ALPRAZolam (XANAX) tablet 0.5 mg 0.5 mg, oral, 2 times daily PRN, anxiety, Starting on Sat01/24/22 at 1646 Carrier Fluids for Secondary Infusion - 0.9% Sodium Chloride(Linked Group 1) 30 mL, intravenous, As needed, For priming tubing and/or flushing, Starting on Sat01/24/22 at 1647, 0-250 ml/hr to flush line after IV infusions when no maintenance IV ordered. Infuse 30mL at the same rate as the secondary infusion. Run as primary IV, not intended for KVO. diphenoxylate-atropine (LOMOTIL) 2.5-0.025 mg per tablet 1 tablet 1 tablet, oral, 3 times daily PRN, diarrhea, Starting on Sat01/24/22 at 1647 gadoterate meglumine 0.5 mmol/mL injection 20 mL (COMPLETED) 20 mL, intravenous, Once in imaging, contrast, Starting on Sat01/27/22 at 1417, For 1 dose 1418 (Contrast Given - Provider: Justine Anderson, RT) HYDROcodone-acetaminop hen (NORCO) 7.5-325 mg per tablet 1 tablet 1 tablet, oral, Every 6 hours PRN, 1st line for pain, Starting on Sat01/24/22 at 1647, Indications: Pain 0029 (Given - Provider: Mar Nair, RN)0659 (Given - Provider: Mar Nair, RN)1317 (Given - Provider: Yissel Holder, RN)1921 (Given - Provider: Yissel Holder, RN) 0113 (Given - Provider: Mar Nair, RN)0701 (Given - Provider: Mar Nair, RN)1501 (Given - Provider: Solange Becerra, RN)2051 (Given - Provider: Jennifer Cochran, GUEVARA) 0412 (Given - Provider: Jennifer Cochran, RN)1130 (Given - Provider: Danielle Lopez, GUEVARA)1728 (Given - Provider: Danielle Lopez, GUEVARA) hyoscyamine (LEVSIN) tablet 125 mcg 125 mcg, oral, 4 times daily PRN, cramping, diarrhea or spasms, Starting on Sat01/24/22 at 1647 ioversoL (OPTIRAY 350) syringe 75 mL (COMPLETED) 75 mL, intravenous, Once in imaging, contrast, Starting on Sana 01/25/22 at 1528, For 1 dose 1530 (Contrast Given - Provider: Merary Scott, RT) prochlorperazine (COMPAZINE) injection 5 mg(Linked Group 2) 5 mg, intravenous, Administer over 2 Minutes, Every 6 hours PRN, nausea, vomiting, Use if unable to tolerate PO, Starting on Sat01/24/22 at 1647, Indications: Nausea and Vomiting prochlorperazine (COMPAZINE) tablet 5 mg(Linked Group 2) 5 mg, oral, Every 6 hours PRN, nausea, vomiting, Starting on Sat01/24/22 at 1647, Indications: Nausea and Vomiting sodium chloride 0.9% flush 0.5-20 mL(Linked Group 1) 0.5-20 mL, intra-catheter, As needed, line care, Starting on Sat01/24/22 at 1647, Flush volume based on line type and size. Flush before and after each use. sodium chloride 0.9% flush 125 mL (COMPLETED) 125 mL, intravenous, Once in imaging, line care, Starting on Sat01/25/22 at 1528, For 1 dose 1530 (Given - Provider: Merary Scott, RT) zolpidem (AMBIEN) tablet 5 mg 5 mg, oral, Nightly PRN, sleep, Starting on Sat01/24/22 at 1647, Indications: Sleep-Onset Insomnia Linked Groups Order Group 1: Saline lock IV (COMPLETED) Routine, Once (Routine), On Sat01/24/22 at 1647, For 1 occurrence And sodium chloride 0.9% flush 0.5-20 mLJump to med 0.5-20 mL, intra-catheter, Every 8 hours scheduled, First dose on Sat01/24/22 at 1648, Flush volume based on line type and size. And sodium chloride 0.9% flush 0.5-20 mLJump to med 0.5-20 mL, intra-catheter, As needed, line care, Starting on Sat01/24/22 at 1647, Flush volume based on line type and size. Flush before and after each use. And Carrier Fluids for Secondary Infusion - 0.9% Sodium ChlorideJump to med 30 mL, intravenous, As needed, For priming tubing and/or flushing, Starting on Sat01/24/22 at 1647, 0-250 ml/hr to flush line after IV infusions when no maintenance IV ordered. Infuse 30mL at the same rate as the secondary infusion. Run as primary IV, not intended for KVO. Group 2: prochlorperazine (COMPAZINE) tablet 5 mgJump to med 5 mg, oral, Every 6 hours PRN, nausea, vomiting, Starting on Sat01/24/22 at 1647, Indications: Nausea and Vomiting Or prochlorperazine (COMPAZINE) injection 5 mgJump to med 5 mg, intravenous, Administer over 2 Minutes, Every 6 hours PRN, nausea, vomiting, Use if unable to tolerate PO, Starting on Sat01/24/22 at 1647, Indications: Nausea and Vomiting documented in this encounter Orders Medications Ordered That Leon ht Not Have Been Administered Count Last Ordered Date First Ordered Date vancomycin 1250 mg/250 mL in sodium chloride 0.9% (premix) 1,250 mg 1 01/27/2022 ALPRAZolam (XANAX) tablet 0.5 mg 1 01/25/20 amitriptyline (ELAVIL) tablet 10 mg 1 01/24 Carrier Fluids for Secondary Infusion - 0.9% Sodium Chloride 1 01/24/2022 diphenoxylate-atropine (LOMO TIL) 2.5-0.025 mg per tablet 1 tablet 1 01/24/2022 enoxaparin (LOVENOX) syringe 40 mg 1 2021 hyoscyamine (LEVSIN) tablet 125 mcg 1 01/24 ketorolac (TORADOL) 30 mg/mL (1 mL) injection 15 mg 1 01/24/2022 prochlorperazine (COMPAZINE) injection 5 mg 1 01/24/2022 prochlorperazine (COMPAZINE) tablet 5 mg 1 01/24/2022 sodium chloride 0.9% flush 0.5-20 mL 1 12/27 zolpidem (AMBIEN) tablet 5 mg 1 01/24/2022 Diet Count Last Ordered Date First Orde red Date ADULT DISCHARGE DIET 1 01/27/2022 Nursing Count Last Ordered Date First Orde red Date DISCHARGE ACTIVITY 2 01/27/2022 DISCHARGE CALL PROVIDER 8 01/27/2022 DISCHARGE INSTRUCTIONS 1 01/27/2022 ACTIVITY 1 01/24/2022 NOTIFY PROVIDER (SPECIFY) 1 01/24/2022 WEIGH PATIENT 1 01/24/2022 Consult Count Last Ordered Date First Orde red Date IP CONSULT TO NUTRITION SERVICES 1 01/25/20 22 IP CONSULT TO ORTHOPEDIC SURGERY 1 01/25/20 22 IV Count Last Ordered Date First Orde red Date SALINE LOCK IV 2 01/24/2022 Admission Count Last Ordered Date First Orde red Date ADMIT TO INPATIENT 1 01/25/2022 INITIATE OBSERVATION SERVICES 1 01/24/2022 Transfer Count Last Ordered Date First Orde red Date ED TO FLOOR BED REQUEST 1 01/24/2022 Discharge Count Last Ordered Date First Orde red Date DISCHARGE PATIENT 1 01/27/2022 CORE MEASURES Count Last Ordered Date First Ord ered Date REASON FOR NO VTE PROPHYLAXIS AT ADMISSION 1 01/26/2022 documented in this encounter Care Teams Mandrel Maker Relationship Specialty Start Date End Date Tip Armenta MD [address] [address] PCP - General Family Medicine 03/18/19 Eleanor Ramon MD [address] [place] [address] Medical Oncologist/Facilities Director Hematology 07/12/20 documented as of this encounter
--- OUTSIDE RECORDS SUMMARY | 2024-05-18 22:14 | XMS_ITS | Encounter Summary ---
Author Organization 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 Gender Identity Not on file Sexual Orientation Not on file documented as of this encounter Plan of Treatment Upcoming Encounters Date Type Department Care Team (Late st Contact Info) Description 05/22/2024 10:45 AM NAIL ASSEMBLY MACHINE OPERATOR Hospital Encounter [facility] Endoscopy [id number] [address] Nikolay Boucher MD [address] [place] [address] 05/22/2024 10:45 AM NAIL ASSEMBLY MACHINE OPERATOR - 05/22/2024 11:15 AM NAIL ASSEMBLY MACHINE OPERATOR Surgery [facility] Endoscopy [address] [place] [address] Nikolay Boucher MD [address] [place] [address] EGD Scheduled Procedures Name Priority Associated Diagnoses Date/Ti me ESOPHAGOGASTRODUODENOSCOPY Crohn's disease of both small and large intestine with intestinal obstruction (HCC) 05/22/2024 10:45 AM NAIL ASSEMBLY MACHINE OPERATOR documented as of this encounter Procedures Procedure Name Priority Date/Time Associated Diagnosis Comments IRON PROFILE W/ IBC Routine 05/11/2021 1 1:34 AM NAIL ASSEMBLY MACHINE OPERATOR Iron deficiency anemia, unspecified iron deficiency anemia type CBC WITH AUTO DIFFERENTIAL Routine 05/11/2021 11:34 AM NAIL ASSEMBLY MACHINE OPERATOR Iron deficiency anemia, unspecified iron deficiency anemia type RETICULOCYTES Routine 05/11/2021 11:34 AM NAIL ASSEMBLY MACHINE OPERATOR Iron deficiency anemia, unspecified iron deficiency anemia type FERRITIN Routine 05/11/2021 11:34 AM NAIL ASSEMBLY MACHINE OPERATOR Iron deficiency anemia, unspecified iron deficiency anemia type documented in this encounter Results * (ABNORMAL) Reticulocyte Count (05/11/2021 11:34 AM NAIL ASSEMBLY MACHINE OPERATOR) Reticulocyte count, automated 2.2 % [facility] Reticulocyte, absolute 108,900(H ) 25,000 - 90,000 cells/uL [facility] Blood specimen (specimen) 05/11/2021 11:34 AM NAIL ASSEMBLY MACHINE OPERATOR 05/11/2021 11:35 AM NAIL ASSEMBLY MACHINE OPERATOR Narrative [facility] - 05/12/2021 5:14 AM NAIL ASSEMBLY MACHINE OPERATOR FASTING:NO FASTING: NO Eleanor Ramon MD LAB BLOOD ORDERABLES Final Result Performing Organization Address [facility] Co de Phone Number [facility] [address] [place] [address] * (ABNORMAL) Iron profile w/ IBC (05/11/2021 11:34 AM NAIL ASSEMBLY MACHINE OPERATOR) Pathologist [facility] Iron 42(L) 50 - 180 mcg/dL [facility] TIBC 409 250 - 425 mcg/dL (calc) [facility] Iron saturation 10(L) 20 - 48 % (calc) [facility] Blood specimen (specimen) 05/11/2021 11:34 AM NAIL ASSEMBLY MACHINE OPERATOR 05/11/2021 11:35 AM NAIL ASSEMBLY MACHINE OPERATOR Narrative [facility] - 05/12/2021 5:14 AM NAIL ASSEMBLY MACHINE OPERATOR FASTING:NO FASTING: NO Eleanor Ramon MD LAB BLOOD ORDERABLES Final Result Performing Organization Address [facility] de Phone Number [facility] [address] [place] [address] * (ABNORMAL) Ferritin (05/11/2021 11:34 AM NAIL ASSEMBLY MACHINE OPERATOR) [facility] Ferritin 7(L) 38 - 380 ng/mL [facility] Blood specimen (specimen) 05/11/2021 11:34 AM NAIL ASSEMBLY MACHINE OPERATOR 05/11/2021 11:35 AM NAIL ASSEMBLY MACHINE OPERATOR Narrative [facility] - 05/12/2021 5:14 AM NAIL ASSEMBLY MACHINE OPERATOR FASTING:NO FASTING: NO Eleanor Ramon MD LAB BLOOD ORDERABLES Final Result Performing Organization Address [facility] Co de Phone Number [facility] [address] [place] [address] * (ABNORMAL) CBC with auto differential (05/11/2021 11:34 AM NAIL ASSEMBLY MACHINE OPERATOR) WBC 8.4 3.8 - 10.8 Thousand/u L [facility] RBC, POC 4.95 4.20 - 5.80 Million/uL [facility] Hgb 12.9(L) 13.2 - 17.1 g/dL [facility] Hct 41.5 38.5 - 50.0 % [facility] MCV 83.8 80.0 - 100.0 fL [facility] MCH 26.1(L) 27.0 - 33.0 pg [facility] MCHC 31.1(L) 32.0 - 36.0 g/dL [facility] Rdw 15.3(H) 11.0 - 15.0 % [facility] Platelets 289 140 - 400 Thousand/u L [facility] MPV 9.8 7.5 - 12.5 fL [facility] Neutrophils, abs 5,552 1,500 - 7,800 cells/uL [facility] Lymphocytes, abs 1,756 850 - 3,900 cells/uL [facility] Monocyte abs 773 200 - 950 cells/uL [facility] Eosinophils, abs 260 15 - 500 cells/uL [facility] Basophils, abs 59 0 - 200 cells/uL [facility] Neutrophils 66.1 % [facility] Lymphocyte pct 20.9 % [facility] Monocytes 9.2 % [facility] Eosinophils 3.1 % [facility] Basophils 0.7 % [facility] Blood specimen (specimen) 05/11/2021 11:34 AM NAIL ASSEMBLY MACHINE OPERATOR 05/11/2021 11:35 AM NAIL ASSEMBLY MACHINE OPERATOR Narrative [facility] - 05/12/2021 5:14 AM NAIL ASSEMBLY MACHINE OPERATOR FASTING:NO FASTING: NO us Eleanor Ramon MD LAB BLOOD ORDERABLES Final Result [facility] [address] [place] [id number] documented in this encounter Visit Diagnoses Diagnosis Iron deficiency anemia, unspecified iron deficiency anemia type- Primary Crohn's disease of both small and large intestine with intestinal obstruction (HCC) documented in this encounter Care Teams Lumber Straightened Relationship Specialty Start Date End Date Tip Armenta MD [address] [address] PCP - General Family Medicine 03/18/19 Eleanor Ramon MD [address] [facility] [address] [place] [address] Medical Oncologist/Transporter Driver Hematology 07/12/20 documented as of this encounter
--- OUTSIDE RECORDS SUMMARY | 2024-05-18 22:14 | XMS_ITS | Encounter Summary ---
Author Organization [facility] Address [address] [place] [address] Phone Care Team Providers Care Gym Manager Name Role Phone Tip Armenta MD Primary Care Provider [phone] Eleanor Ramon MD Unavailable [phone] Encounter Details Date Type Department Care Team (Late st Contact Info) Description 08/17/2021 7:45 AM CDT Telemedicine [facility] Gastroenterology [address] [facility] Advanced Medicine 12th [place] [address] [place] [address] Roxanna Valenzuela MD [address] [place] [address] Crohn's disease of small and large intestines with complication (CMS/HCC) (HCC) (Primary Dx); High risk medications (not [...] on file Legal Sex Male 1:20 AM [employer]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 Return office visit is needed in 6 months ??? Due for colonoscopy later this year (Sofia with Dr. Valenzuela's office will contact you for scheduling) ??? Recommend covid vaccine documented in this encounter Progress Notes * Roxanna Valenzuela MD - 08/17/2021 12:00 AM CDT PATIENT NAME: MELLO HERBERT : 1965 [place]: 08/17/2021 This was a telemedicine visit with Mello Herbert, which took place via Video. During the visit, I was located in my office at [facility] and the patient was located at his home. The session started at 7:45 a.m. and ended at 8:05 a.m. with 10 minutes of preparation prior to the visit. The patient has been informed that the visit may not be secure and acknowledged the information. I have explained the option of participating in a telephone or video visit during the COVID-19 Public Health Emergency to the patient. After being given an opportunity to ask questions about and discuss this type of visit, the patient verbally consented to proceeding with the telephone/video visit.The patient understands that this service replaces an office visit and they may be billed and/or responsible for any applicable copayments. REASON FOR VISIT: Follow-up ileocolonic Crohn's disease status post 3 ileocolonic resections, currently maintained onHumira every 14 days. CURRENT MEDICATIONS: 1. Gabapentin 300 mg t.i.d. 2. Humira 40 mg every other week. 3. Tylenol with codeine p.r.n. for diarrhea. 4. Amitriptyline 10 mg at bedtime. 5. Norvasc 5 mg daily. 6. Avapro 300 mg daily. 7. Levsin. 8. Nystatin swish and swallow. 9. Singulair. 10. Lomotil. 11. Ambien. 12. Vitamin B12 injections monthly. 13. Zofran 8 mg p.r.n. 14. Testosterone weekly. 15. Cialis 20 mg p.r.n. 16. Xanax p.r.n. PROBLEM LIST: 1. Ileocolonic Crohn's disease diagnosed in 1989 with a small-bowel resection in 1989 and a recurrent anastomotic stricture in 2005 and 2009 leading to redo ileocolonic resections. The patient's anastomosis most recently was evaluated in the fall of 2020 and demonstrated mucosal remission while being maintained on Humira. The patient has been treated with 6-MP (without response), methotrexate (without response), Remicade (with initial response, but discontinued in the context of severe pneumonia), and most recently on Humira. 2. Chronically low vitamin D. 3. Chronic joint pains characterized by arthralgias, general malaise, and fatigue. 4. Repair of an incisional hernia in 2011. 5. Iron-deficiency anemia. 6. Low testosterone, thought to be on testosterone replacement, which led to a portal vein thrombosis. 7. Repair of a herniated disk in January 2001 (cervical). HISTORY OF PRESENT ILLNESS: Mello is a 56-year-old male with a past medical history of ileocolonic stricturing Crohn's disease, currently maintained in remission on Humira who presents today for follow-up. He was last seen in clinic in the summer of 2020 and since that time has undergone repair of a disk herniation. The patient reports that clinically he is doing very well in regards to his Crohn's disease and he has not had any problems with flares despite having undergone surgery. The patient reports his bowelmovements are based on what he eats, but he tends to control him with a combination of Lomotil as well as Tylenol #3. The patient otherwise has no other complaints. The patient did not receive the COVID vaccine. The patient does know that he will need a colonoscopy at the end of this year. We will need to givehim extra preparation probably with GoLYTELY in combination with magnesium citrate. PHYSICAL EXAM: He denies any weight loss, weight gain, and denies any fevers. ASSESSMENT: Mello is a mikel 56-year-old gentleman with a past medical history of stricturing ileocolonic Crohn's disease currently in remission on Humira, who presents today for follow-up. I am very pleased that Mello is doing well and I have encouraged him to stay on his current dosing of Humira. I did encourage him to get the COVID vaccine as his reasons to not get it are related to the fact that he gets mixed messages from the media. ELECTRONICALLY SIGNED - 08/22/2021 05:29 AM Roxanna Valenzuela MD, MPH office machinery or equipment installer Division of Gastroenterology AG/kenneth documented in this encounter Plan of Treatment Upcoming Encounters Date Type Department Care Team (Late st Contact Info) Description 05/22/2024 10:45 AM S[employer] CR[employer]ING GUARD SUPERVISOR Hospital Encounter [facility] Endoscopy [id number] [place] [address] Nikolay Boucher MD [address] [place] [address] 05/22/2024 10:45 AM SCHO[employer] CROSSING GUARD SUPERVISOR - 05/22/2024 11:15 AM SCHO[employer] CR[employer]ING GUARD SUPERVISOR Surgery [facility] Endoscopy [id number] [id number] Nikolay Boucher MD [address] [place] [address] EGD Scheduled Procedures Name Priority Associated Diagnoses Date/Ti me ESOPHAGOGASTRODUODENOSCOPY Crohn's disease of both small and large intestine with intestinal obstruction (HCC) 05/22/2024 10:45 AM SCHO[employer] CR[employer]ING GUARD SUPERVISOR documented as of this encounter Visit Diagnoses Diagnosis Crohn's disease of small and large intestines with complication (HCC)- Primary High risk medications (not anticoagulants) long-term use Encounter for long-term (current) use of other medications Crohn's disease of both small and large intestine with intestinal obstruction (HCC) documented in this encounter Care Teams Gym Manager Relationship Specialty Start Date End Date Tip Armenta MD [address] [address] PCP - General Family Medicine 03/18/19 Eleanor Ramon MD [address] [facility] [address] [place] [address] Medical Oncologist/[employer] Br[employer] Inspector Hematology 07/12/20 documented as of this encounter
--- OUTSIDE RECORDS SUMMARY | 2024-05-18 22:14 | XMS_ITS | Encounter Summary ---
Author Organization [facility] Healthcare Address [address] [place] [address] Care Team Providers Care Minibus Driver Name Role Phone Tip Armenta MD Primary Care Provider [phone] Eleanor Ramon MD Unavailable [phone] Reason for Visit * Reason Comments Knee Pain Encounter Details Date Type Department Care Team (Late st Contact Info) Description 01/20/2022 2:50 AM CDT - 01/20/2022 6:40 AM CDT Emergency [facility] Emergency Department [address] [place] [id number] Sherly Duran MD [address] [place] [address] [place] [address] Cellulitis of right knee (Primary Dx); Osteoarthritis of right knee, unspecified osteoarthritis type Discharge Disposition: Discharge to home or self [...] Sign Reading Time Taken Comments Blood Pressure 157/96 01/20/2022 6:39 AM CDT Pulse 70 01/20/2022 6:39 AM CDT Temperature 36.6 ??C (97.9 ??F) 01/20/2022 1:40 AM CD T Respiratory Rate 16 01/20/2022 6:39 AM CDT Oxygen Saturation 98% 01/20/2022 6:39 AM CDT Inhaled Oxygen Concentration - - Weight 99.3 kg (219 lb) 01/20/2022 1:40 AM CDT Height - - Body Mass Index 28.89 10/19/2021 8:51 AM CDT documented in this encounter Discharge Instructions * Discharge Instructions* Sherly Duran MD - 01/20/2022 5:38 AM CDT Please follow-up with orthopedic surgeon, Dr. Morejon, as soon as possible concerning your painfulright knee and please call his office Saturday morning, as discussed. Please take your medications asprescribed. Please immediately return to the emergency department for worsening of your symptoms orany new problems which may arise. Please use 600 mg of ibuprofen (Motrin, Advil) every 6 hours as needed for pain control. You may use qndl-mbo-heamekf naproxen(Aleve) as directed instead of ibuprofen, but be aware that ibuprofen products are taken every 6 hours as needed, and naproxen products are taken every 12 hours as needed. You also may want to consider taking an xvnq-fua-aqaynrb stomach medication while taking the ibuprofen or naproxen products, as they can be harsh on your stomach lining cause indigestion and / or nausea. Examples of the stomach medications include famotidine(Pepcid), omeprazole(Prilosec) or lansoprazole(Prevacid). If you develop any increased abdominal pain, or notice blood in your stools or start vomiting blood, STOP the ibuprofen or naproxen and return to the ER for re- evaluation. You may also use 650 mg and up to 1000 mg of acetaminophen (Tylenol) every 6 hours as needed for pain control. Please make sure that if you are also taking other medications that contain acetaminophen (Tylenol),your total acetaminophen dose does not exceed 1000 mg every 6 hours and 4000 mg in 24 hours. You may take the Marathon for breakthrough pain not well controlled by the above. Please be advised that Marathon also contains acetaminophen. Please use Marathon sparingly and only if your pain is severe. Please beadvised that this medication can be habit forming and potentially lead to addiction. It is mandatory that you must follow-up, as recommended. You have received emergency care only at your visit today. This is not a substitute for ongoing care, further evaluation and treatment and therefore follow-up as directed is not optional but mandatory. You MUST follow up for further evaluation of all incidental abnormal radiographic and laboratory findings. Have your physician obtain records from this visit and address all the incidental abnormal findings. This may include final results of lab testing, cultures and final x-ray reports, which may not have been available during the time of the visit. Return immediately for any new symptoms, worsening of symptoms, or persistent symptoms * Attachments The following attachments cannot be sent through Care Everywhere. * Cellulitis (AfterCare(R) Instructions(ER/ED)) (Slovenian) * Osteoarthritis (AfterCare(R) Instructions(ER/ED)) (Slovenian) * Knee Bursitis (AfterCare(R) Instructions(ER/ED)) (Slovenian) documented in this encounter Medications at Time [...] (25 mg total) by mouth as needed hyoscyamine (LEVSIN) 0.125 mg tabletIndications: Crohn's disease [...] (Humira,CF, Pen) 40 mg/0.4 mL pen injector kitIndications:Pulverizer Tender hn's disease of small and large intestines with complication (HCC) Inject 0.4 mL (40 mg total) under the skin every 14 (fourteen) days Safety labs required every 3 months for med refills, labs needed DEACON (overdue). Must be completed for any further refills to be authorized. 2 each 11/29/2021 gabapentin (NEURONTIN) 300 mg capsule TAKE 1 CAPSULE(300 MG) BY MOUTH THREE TIMES DAILY 90 capsule 08/08/2021 2 HYDROcodone-acetam inophen (NORCO) 5-325 mg per tabletIndications: Pain Take 1 tablet by mouth every 6 (six) hours as needed for pain 8 tablet 01/20/2022 2 mupirocin (mupirocin) 2 % ointment Apply to each nostril 2 (two) times a day Use pea size amount in each nostril twice daily for five (5) days. After application, press sides of nose together and gently massage. 10 g 02/14/2021 2 nystatin 100,000 unit/mL suspensionIndicati ons:Esophageal yeast infection (CMS/HCC) ([facility]) Take 5 ml PO 2 times daily,swish and swallow for 14 days 140 mL 2 12/18/2021 2 documented as of this encounter Ordered Prescriptions Prescription Sig Dispense Quantity Refills Last Filled Start Date End Date HYDROcodone-acetam inophen (NORCO) 5-325 mg per tabletIndications: Pain Take 1 tablet by mouth every 6 (six) hours as needed for pain 8 tablet 01/20/2022 01/24/2022 documented in this encounter Discharge Disposition Disposition Code Departure Means Destination Discharge to home or self care documented in this encounter ED Notes * Sherly Duran MD - 01/20/2022 3:53 AM CDT HPI Knee Pain HPI Mello Herbert is a 56 y.o. male presenting to the ED c/o right knee pain and swelling after kneeling on the ground approximately a week and a half ago on concrete while sustaining abrasions. He relates he went to an urgent care was given clindamycin this past Saturday. Patient has been taking ibuprofen without improvement. Patient also takes Humira for Crohn's disease. Patient denies any fever,chills, rashes, nausea, vomiting, shortness of breath or chest pain. Patient History: Past Medical History: Diagnosis Date ??? Anemia ??? Anxiety and depression ??? Crohn's colitis (CMS/HCC) (HCC) ??? GERD (gastroesophageal reflux disease) ??? Hypertension Past Surgical History: Procedure Laterality Date ??? SMALL BOWEL RESECTION Family History Problem Relation Age of Onset ??? No Known Problems Mother ??? No Known Problems Father Social History Tobacco Use ??? Smoking status: Never Smoker ??? Smokeless tobacco: Never Used Substance and Sexual Activity ??? Drug use: Never ??? Sexual activity: Defer Alcohol Use: Not At Risk ??? Frequency of Alcohol Consumption: Monthly or less ??? Average Number of Drinks: 1 or 2 ??? Frequency of Binge Drinking: Never Current Facility-Administered Medications: ??? ondansetron (ZOFRAN) injection 4 mg, 4 mg, intravenous, Once ??? sodium chloride 0.9% bolus 1,000 mL, 1,000 mL, intravenous, Once, Last Rate: 250 mL/hr at 01/20/22419, 1,000 mL at 01/20/22419 ??? vancomycin 1500 mg/250 mL in sodium chloride 0.9% (premix) 1,500 mg, 15 mg/kg, intravenous, Once, 1,500 mg at 01/20/22439 Current Outpatient Medications: ??? acetaminophen-codeine (TYLENOL with CODEINE #3) 300-30 mg per tablet ??? adalimumab (Humira,CF, Pen) 40 mg/0.4 mL pen injector kit ??? ALPRAZolam (XANAX) 1 mg tablet ??? amitriptyline (ELAVIL) 10 mg tablet ??? amLODIPine (NORVASC) 5 mg tablet ??? BD SAFETYGLIDE SYRINGE 3 mL 23 x 1 syringe ??? CIALIS 20 mg tablet ??? cyanocobalamin (Vitamin B-12) 1,000 mcg/mL injection ??? diphenoxylate-atropine (LOMOTIL) 2.5-0.025 mg per tablet ??? folic acid (FOLVITE) 1 mg tablet ??? gabapentin (NEURONTIN) 300 mg capsule ??? hydroCHLOROthiazide (HYDRODIURIL) 25 mg tablet ??? hyoscyamine (LEVSIN) 0.125 mg tablet ??? irbesartan (AVAPRO) 300 mg tablet ??? lansoprazole (PREVACID) 15 mg capsule ??? magnesium oxide,aspartate,citr 400 mg magnesium capsule ??? montelukast (SINGULAIR) 10 mg tablet ??? mupirocin (mupirocin) 2 % ointment ??? nystatin 100,000 unit/mL suspension ??? ondansetron (ZOFRAN) 8 mg tablet ??? testosterone cypionate (DEPO-TESTOTERONE) 200 mg/mL injection ??? zolpidem (AMBIEN) 10 mg tablet Review of Systems Review of Systems Constitutional: Negative for chills and fever. HENT: Negative for ear pain and sore throat. Eyes: Negative for pain and visual disturbance. Respiratory: Negative for cough and shortness of breath. Cardiovascular: Negative for chest pain and palpitations. Gastrointestinal: Negative for abdominal pain and vomiting. Genitourinary: Negative for dysuria and hematuria. Musculoskeletal: Positive for arthralgias. Negative for back pain. Skin: Negative for color change and rash. Neurological: Negative for seizures and syncope. All other systems reviewed and are negative. All systems reviewed and are neg or non contributory for this patients presentation today other than as stated in the HPI . Physical Exam ED Triage Vitals Temp Pulse Resp BP SpO2 01/20/22 0140 01/20/2213901/20/2213901/20/2213901/20/22 014 36.6 ??C (97.9 ??F) 70 16 (!) 187/108 97 % Temp src Heart Rate Source Patient Position BP Location FiO2 (%) 01/20/220 01/20/22 0314 -- -- -- Oral Monitor Height Height Method Weight Weight Method -- -- 01/20/22139 -- 99.3 kg (219 lb) Physical Exam GENERAL: Patient is conscious and alert; in mild acute distress. Middle aged male. HEAD: Head is normocephalic and atraumatic. EYES: Extraocular muscles are intact. PERRLA. ENT: Dry mucous membranes. The uvula is midline in the oropharynx. NECK: Trachea is midline. Neck is supple. LUNGS: Lungs are clear to auscultation bilaterally. There is fair respiratory effort. Cardiovascular: S1,S2, Regular rate and rhythm, no murmur. No pitting edema. ABDOMEN: Soft and nontender to palpation. There is no guarding or rebound. MUSCULOSKELETAL: Moves all extremities x4. There is no obvious deformity. No spinal process tenderness. Right knee prepatellar erythema, mild edema, tenderness to palpation, warmth, reduced ROM on flexion secondary to pain. There is no crepitus. There is no on valgus stressing. There is no pain on varus stressing. There is no anterior or posterior drawer. SKIN: Skin is warm and dry. There is no gross rash. NEUROLOGIC: Patient is oriented x3. No focal neurologic defect is noted. Patient is able to move both upper and lower extremities against gravity. Sensation is grossly intact. PSYCH: Normal affect. No SI/HI. Procedures MDM Labs Reviewed CBC WITH AUTO DIFFERENTIAL - Abnormal Result Value WBC 11.0 (*) Hgb 14.4 Hct 46.4 Plt 274 MPV 9.2 RBC 5.40 MCV 85.9 MCH 26.7 (*) MCHC 31.0 (*) RDW CV 14.5 RDW SD 45.1 NRBC abs 0.00 COMPREHENSIVE METABOLIC PANEL - Abnormal Sodium 138 Potassium, pl 3.9 Chloride 102 CO2 29 Anion gap 7 BUN 12 Creatinine 1.40 (*) Glucose 97 Calcium 8.7 Bilirubin, total 0.9 Protein, pl 7.6 Albumin 4.4 Alk phos 100 ALT 13 AST 23 DIFFERENTIAL AUTO - Abnormal Neutrophil abs 6.7 (*) Imm gran abs 0.0 Lymphocyte abs 2.7 Monocyte abs 1.3 (*) Eosinophil abs 0.3 Basophil abs 0.1 Neutrophil pct 60.6 Imm gran pct 0.4 Lymphocyte pct 24.2 Monocyte pct 11.4 Eosinophil pct 2.8 Basophil pct 0.6 BLOOD CULTURE BLOOD CULTURE PROTIME-INR PT 13.1 INR 1.0 ERYTHROCYTE SEDIMENTATION RATE Erythrocyte sedimentation rate 9 EGFR eGFR 59 XR Knee Right 3 Views EXAM DESCRIPTION: XR KNEE RIGHT 3 VIEWS [...] THIS IS AN ELECTRONICALLY VERIFIED FINAL REPORT 01/20/2022 2:44 AM - Electronically signed by Jesus Resendiz M.D. ML: ML Report ID: [id number] Reading Location: [id number] BP 148/94 Pulse 61 Temp 36.6 ??C (97.9 ??F) (Oral) Resp 16 Wt 99.3 kg (219 lb) SpO2 96% BMI 28.89 kg/m?? MDM Medical Decision Making Clinical problems/summary: Mello Herbert is a 56 y.o. male who presents with right knee pain for approximately 2-1/2 weeks. General plan: Will order: Basic labs, xray imaging, IVF, analgesia and reassess. Considering cellulitis, arthritis, septic arthritis, degenerative joint disease, gout, among other etiologies. ED Course -Patient seen and evaluated, available studies reviewed. -Prior available records reviewed, triage notes reviewed. -Vital signs stable, afebrile. ED Course as of 01/20/22539 Time: 01/20 514 Comment: Discussed patient with orthopedic surgeon, Dr. Rojas, who advises to have the patientcall his office on Saturday morning for follow-up.. By: Sherly Duran MD This examination was transcribed using the [employer] voice recognition system without human content strategy lead. In an effort to expedite patient care, this report has not been adjusted for typographical, grammatical, and syntax by a trained medical legal investigator. Clinical Impression: Cellulitis of right knee Sherly Duran MD 01/20/22536 Sherly Duran MD 01/20/22539 * Rylie Hurtado RN - 01/20/2022 1:38 AM CDT Patient arrives with reports of right knee pain/swelling. Area is hot to the touch. Patient was kneeling on ground 1.5 weeks ago on concrete and had abrasions on knee. Currently taking clindamycin but area has gotten worse. Patient is immunosuppressed r/t humira. documented in this encounter Plan of Treatment Upcoming Encounters Date Type Department Care Team (Late st Contact Info) Description 05/22/2024 10:45 AM [facility] Hospital Encounter [facility] Endoscopy [address] [place] [address] Nikolay Boucher MD [address] [place] [address] 05/22/2024 10:45 AM [facility] - 05/22/2024 11:15 AM [facility] Surgery [facility] Endoscopy [address] [place] [address] Nikolay Boucher MD [address] [place] [address] EGD Scheduled Procedures Name Priority Associated Diagnoses Date/Ti pr ESOPHAGOGASTRODUODENOSCOPY Crohn's disease of both small and large intestine with intestinal obstruction (HCC) 05/22/2024 10:45 AM [facility] documented as of this encounter Procedures Procedure Name Priority Date/Time Associated Diagnosis Comments BLOOD CULTURE STAT 01/20/2022 4:38 AM CDT BLOOD CULTURE STAT 01/20/2022 4:36 AM CDT XR KNEE RIGHT 3 VIEWS ED 01/20/2022 2:22 AM CDT EGFR STAT 01/20/2022 2:04 AM CDT DIFFERENTIAL AUTO STAT 01/20/2022 2:0 4 AM CDT CBC WITH AUTO DIFFERENTIAL STAT 01/20/2022 2:04 AM CDT ERYTHROCYTE SEDIMENTATION RATE STAT 01/20/2022 2:04 AM CDT PROTIME-INR Routine 01/20/2022 2:04 AM CDT COMPREHENSIVE METABOLIC PANEL STAT 01/20/2022 2:04 AM CDT documented in this encounter Results * Blood culture Blood Peripheral (01/20/2022 4:38 AM CDT) Report Final Report: No growth AMANDA GRACE Comment:Testing performed by : [facility], [address] [facility] [place]., [address] Blood (Peripheral) 01/20/2022 4:38 AM CDT 01/20/2022 8:18 AM CDT Narrative AMANDA GRACE - 01/24/2022 12:00 PM CDT From a different site than #1. [...] organism identification may be performed using the [employer] Gram-Positive Blood Culture Assay. This assay detects microbial DNA in positive blood culture broth via hybridization of target DNA to capture oligonucleotides on a microarray. This assay has been cleared by the [place] Food and Drug Administration and its performance characteristics have been verified by the [facility]. 5. ?For questions about this culture, contact the Microbiology Laboratory at [phone]. Interpretive data was last revised on 2019. us Sherly Duran MD LAB MICROBIOLOGY - GEN ERAL ORDERABLES Final Result AMANDA [address] [facility] Department [place] [address] * Blood culture Blood Peripheral (01/20/2022 4:36 AM CDT) Report Final Report: No growth AMANDA Comment:Testing performed by : [facility], [address] [facility] [place]., [address] Blood (Peripheral) 01/20/2022 4:36 AM CDT 01/20/2022 8:18 AM CDT Narrative AMANDA - 01/24/2022 12:00 PM CDT Draw Blood cultures before administration of [...] organism identification may be performed using the [employer] Gram-Positive Blood Culture Assay. This assay detects microbial DNA in positive blood culture broth via hybridization of target DNA to capture oligonucleotides on a microarray. This assay has been cleared by the [place] Food and Drug Administration and its performance characteristics have been verified by the [facility]. 5. ?For questions about this culture, contact the Microbiology Laboratory at [phone]. Interpretive data was last revised on 2019. us Sherly Duran MD LAB MICROBIOLOGY - GEN ERAL ORDERABLES Final Result AMANDA [address] [facility] Department [place] [address] * XR Knee Right 3 Views (01/20/2022 2:22 AM CDT) Anatomical Region Laterality Modality Lower Extremities, Knee Right Computed Radiography 01/20/2022 2:43 AM CDT Narrative 01/20/2022 2:44 AM CDT EXAM DESCRIPTION: ?XR KNEE RIGHT 3 VIEWS REASON FOR STUDY: ?? Anterior right knee pain and swelling. ??Area is hot to the touch. ??Patient was kneeling on ground 1.5 weeks ago on concrete and had abrasions on knee. ? TECHNIQUE: ?? 3 ??radiographic views acquired of the right knee. COMPARISON: ?? None available. FINDINGS: BONES/JOINTS: ?? No acute fracture, malalignment or osseous abnormalities. ?? Joint spaces are maintained. ?? Small marginal osteophyte arises from the patella. SOFT TISSUES: ?? Moderate soft tissue swelling seen over the patella. OTHER: ?? No other significant finding. IMPRESSION: Moderate prepatellar soft tissue thickening. ?? No acute osseous abnormality. THIS IS AN ELECTRONICALLY VERIFIED FINAL REPORT 01/20/2022 2:44 AM - Electronically signed by ??Jesus Resendiz M.D. ML: ESTELLE D: ??01/20/2022 2:44 AM T: ??01/20/2022 2:44 AM Report ID: [id number] Reading Location: ??[id number] Procedure Note Jesus Resendiz MD - 01/20/2022 EXAM DESCRIPTION: XR KNEE RIGHT 3 VIEWS REASON FOR STUDY: Anterior right knee pain and swelling. Area is hot tothe touch. Patient was kneeling on ground 1.5 [...] IMPRESSION: Moderate prepatellar soft tissue thickening. No acuteosseous abnormality. THIS IS AN ELECTRONICALLY VERIFIED FINAL REPORT 01/20/2022 2:44 AM - Electronically signed by Jesus Resendiz M.D. ML: ML Report ID: [id number] Reading Location: [place] [address] Sherly Duran MD IMG XR PROCEDURES Ibeth l Result * eGFR (01/20/2022 2:04 AM CDT) eGFR 59 mL/min/1. 73 m2 AMANDA GRACE [...] was last reviewed 2021. Testing performed by: [address] [address] Blood 01/20/2022 2:04 AM CDT 01/20/2022 2:11 AM CDT us Sherly Duran MD LAB BLOOD ORDERABLES F inal Result [facility] [address] [facility] Department [place] [address] * (ABNORMAL) Differential, auto (01/20/2022 2:04 AM CDT) Neutrophil abs 6.7(H) 1.7 - 6.5 K/cumm AMANDA Comment:Testing performed by : [address] [address] Imm gran abs 0.0 0.0 - 0.1 K/cumm AMANDA Comment:Testing performed by : [address] [address] Lymphocyte abs 2.7 0.8 - 3.3 K/cumm AMANDA Comment:Testing performed by : [address] [address] Monocyte abs 1.3(H) 0.2 - 0.8 K/cumm AMANDA Comment:Testing performed by : [address] [address] Eosinophil abs 0.3 0.0 - 0.5 K/cumm AMANDA Comment:Testing performed by : [address] [address] Basophil abs 0.1 0.0 - 0.1 K/cumm AMANDA Comment:Testing performed by : [address] [address] Neutrophil pct 60.6 % AMANDA Comment: Interpretive Data Percent cell count reference ranges are not reported, since discordance with absolute values may lead to misinterpretation of CBC data. Current Interpretive Data was last revised on 2017. Testing performed by: [address] [address] Imm gran pct 0.4 % [facility] Comment: Interpretive Data Percent cell count reference ranges are not reported, since discordance with absolute values may lead to misinterpretation of CBC data. Current Interpretive Data was last revised on 2017. Testing performed by: [address] [address] Lymphocyte pct 24.2 % [facility] Comment: Interpretive Data Percent cell count reference ranges are not reported, since discordance with absolute values may lead to misinterpretation of CBC data. Current Interpretive Data was last revised on 2017. Testing performed by: [address] [address] Monocyte pct 11.4 % [facility] Comment: Interpretive Data Percent cell count reference ranges are not reported, since discordance with absolute values may lead to misinterpretation of CBC data. Current Interpretive Data was last revised on 2017. Testing performed by: [address] [address] Eosinophil pct 2.8 % [facility] Comment: Interpretive Data Percent cell count reference ranges are not reported, since discordance with absolute values may lead to misinterpretation of CBC data. Current Interpretive Data was last revised on 2017. Testing performed by: [address] [address] Basophil pct 0.6 % [facility] Comment: Interpretive Data Percent cell count reference ranges are not reported, since discordance with absolute values may lead to misinterpretation of CBC data. Current Interpretive Data was last revised on 2017. Testing performed by: [address] [address] Blood 01/20/2022 2:04 AM CDT 01/20/2022 2:11 AM CDT us Sherly Duran MD LAB BLOOD ORDERABLES F inal Result AMANDA GRACE [address] [facility] Department [place] [address] * Erythrocyte sedimentation rate (01/20/2022 2:04 AM CDT) Pathologist [facility] [place] Erythrocyte sedimentation rate 9 1 - 20 mm/hr AMANDA Comment:Testing performed by : [address] [address] Blood 01/20/2022 2:04 AM CDT 01/20/2022 2:11 AM CDT Sherly Duran MD LAB BLOOD ORDERABLES F inal Result Performing Organization Address City/[facility] Co de Phone Number [id number] [place] [address] * Protime-INR (01/20/2022 2:04 AM CDT) [facility] PT 13.1 12.0 - 14.6 sec AMANDA Comment:Testing performed by : [address] [address] INR 1.0 0.9 - 1.2 AMANDA Comment: Ref Range High Interpretive data Oral anticoagulant therapeutic ranges: Venous thromboembolism prophylaxis or treatment: 2.0-3.0 CARDIOLOGY Standard range: 2.0-3.0 High-intensity range: 2.5-3.5 Refer to indication-specific guidelines for appropriate target ranges for prosthetic heart valve replacement. Current interpretive data was last revised on 2019. Testing performed by: [address] [address] Blood 01/20/2022 2:04 AM CDT 01/20/2022 2:11 AM CDT us Sherly Duran MD LAB BLOOD ORDERABLES F inal Result Performing Organization Address City/[facility] Co de Phone Number [address] [place] [address] * (ABNORMAL) Comprehensive metabolic panel (01/20/2022 2:04 AM CDT) [facility] Sodium 138 135 - 145 mmol/L AMANDA Comment:Testing performed by : [address] [address] Potassium, pl 3.9 3.3 - 4.9 mmol/L [facility] Comment:Testing performed by : [address] [address] Chloride 102 97 - 110 mmol/L [facility] Comment:Testing performed by : [address], [place]., [address] CO2 29 22 - 32 mmol/L [facility] Comment:Testing performed by : [address] [address] Anion gap 7 2 - 15 mmol/L [facility] Comment:Testing performed by : [address], [place]., [address] BUN 12 8 - 25 mg/dL [facility] Comment:Testing performed by : [address], [place]., [address] Creatinine 1.40(H) 0.80 - 1.30 mg/dL [facility] Comment:Testing performed by : [address] [address] Glucose 97 70 - 199 mg/dL [facility] Comment: Interpretive Data Fasting glucose >/= 126 [...] was last revised 2017. Testing performed by: [address] [address] Calcium 8.7 8.5 - 10.3 mg/dL [facility] Comment:Testing performed by : [address] [address] Bilirubin, total 0.9 0.1 - 1.2 mg/dL [facility] Comment:Testing performed by : [address] [address] Protein, pl 7.6 6.5 - 8.5 g/dL AMANDA GRACE Comment:Testing performed by : [address] [address] Albumin 4.4 3.5 - 5.0 g/dL AMANDA GRACE Comment:Testing performed by : [address] [address] Alk phos 100 40 - 130 Units/L AMANDA GRACE Comment:Testing performed by : [address] [address] ALT 13 7 - 55 Units/L AMANDA GRACE Comment:Testing performed by : [address] [address] AST 23 10 - 50 Units/L AMANDA GRACE Comment:Testing performed by : [address] [address] Blood 01/20/2022 2:04 AM CDT 01/20/2022 2:11 AM CDT us Sherly Duran MD LAB BLOOD ORDERABLES F inal Result AMANDA [facility] Department of Laboratories [place], [place] [id number] * (ABNORMAL) CBC with auto differential (01/20/2022 2:04 AM CDT) [facility] WBC 11.0(H) 3.8 - 9.9 K/cumm AMANDA GRACE Comment:Testing performed by : [address] [address] Hgb 14.4 13.0 - 17.5 g/dL AMANDA GRACE Comment:Testing performed by : [address] [address] Hct 46.4 38.9 - 50.3 % AMANDA GRACE Comment:Testing performed by : [address] [address] Plt 274 150 - 400 K/cumm AMANDA GRACE Comment:Testing performed by : [address] [address] MPV 9.2 9.1 - 12.3 fL AMANDA GRACE Comment:Testing performed by : [address] [address] RBC 5.40 4.30 - 5.80 M/cumm AMANDA GRACE Comment:Testing performed by : [address] [address] MCV 85.9 81.3 - 96.4 fL AMANDA GRACE Comment:Testing performed by : [address] [address] MCH 26.7(L) 27.1 - 33.3 pg AMANDA Comment:Testing performed by : [address] [address] MCHC 31.0(L) 32.3 - 35.7 g/dL AMANDA GRACE Comment:Testing performed by : [address] [address] RDW CV 14.5 11.1 - 14.9 % AMANDA Comment:Testing performed by : [address], [address] RDW SD 45.1 35.7 - 48.1 fL AMANDA Comment:Testing performed by : [address] [address] NRBC abs 0.00 0.00 - 0.01 K/cumm AMANDA Comment:Testing performed by : [address] [address] Blood 01/20/2022 2:04 AM CDT 01/20/2022 2:11 AM CDT us Sherly Duran MD LAB BLOOD ORDERABLES F inal Result [facility] [address] [facility] Department [place] [address] documented in this encounter Visit Diagnoses Diagnosis Cellulitis of right knee- Primary Osteoarthritis of right knee, unspecified osteoarthritis type Crohn's disease of both small and large intestine with intestinal obstruction (HCC) documented in this encounter Administered Medications Inactive Administered Medications - up to 3 most recent administrations Medication Order MAR Action Action Date Dose Rate Site HYDROmorphone (DILAUDID) injection 0.5 mg 0.5 mg, intravenous, Administer over 2 Minutes, Once, On 01/20/22 at 0355, For 1 dose Given 01/20/2022 4:22 AM CDT 0.5 mg HYDROmorphone (DILAUDID) injection 0.5 mg 0.5 mg, intravenous, Administer over 2 Minutes, Once, On 01/20/22 at 0516, For 1 dose Given 01/20/2022 5:34 AM CDT 0.5 mg morphine injection 4 mg 4 mg, intravenous, Administer over 4 Minutes, Once, On 01/20/22 at 0321, For 1 dose Given 01/20/2022 3:28 AM CDT 4 mg ondansetron (ZOFRAN) injection 4 mg 4 mg, intravenous, Administer over 2 Minutes, Once, On 01/20/22 at 0238, For 1 dose Given 01/20/2022 2:38 AM CDT 4 mg sodium chloride 0.9% bolus 1,000 mL 1,000 mL, intravenous, at 250 mL/hr, Administer over 4 Hours, Once, On 01/20/22 at 0343, For 1 dose New Bag 01/20/2022 4:20 AM CDT 1,000 mL 250 mL/hr vancomycin 1500 mg/250 mL in sodium chloride 0.9% (premix) 1,500 mg 1,500 mg (rounded from 1,489.5 mg = 15 mg/kg ? 99.3 kg), intravenous, Administer over 90 Minutes, Once, On 01/20/22 at 0404, For 1 dose, Indications: Skin/Soft Tissue InfectionIndications:Skin/S oft Tissue Infection New Bag 01/20/2022 4:40 AM CDT 1,500 mg documented in this encounter Active and Recently Administered Medications Times are shown in CDT. Scheduled Medication Order 01/18/2022 01/19/2022 01/20/2022 HYDROmorphone (DILAUDID) injection 0.5 mg (COMPLETED) 0.5 mg, intravenous, Administer over 2 Minutes, Once, On 01/20/22 at 0355, For 1 dose 0422 (Given - Provid er: Luciano Bae RN) HYDROmorphone (DILAUDID) injection 0.5 mg (COMPLETED) 0.5 mg, intravenous, Administer over 2 Minutes, Once, On 01/20/22 at 0516, For 1 dose 0534 (Given - Provid er: Jamaal Carbajal, GUEVARA) morphine injection 4 mg (COMPLETED) 4 mg, intravenous, Administer over 4 Minutes, Once, On 01/20/22 at 0321, For 1 dose 0328 (Given - Provid er: Jamaal Carbajal, GUEVARA) ondansetron (ZOFRAN) injection 4 mg (COMPLETED) 4 mg, intravenous, Administer over 2 Minutes, Once, On 01/20/22 at 0238, For 1 dose 0238 (Given - Provid er: Rylie Hurtado, GUEVARA) ondansetron (ZOFRAN) injection 4 mg 4 mg, intravenous, Administer over 2 Minutes, Once, On 01/20/22 at 0321, For 1 dose 0328 (Hold - Provide r: Jamaal Carbajal RN - Reason: Other - Comment: recent administration) sodium chloride 0.9% bolus 1,000 mL (COMPLETED) 1,000 mL, intravenous, at 250 mL/hr, Administer over 4 Hours, Once, On 01/20/22 at 0343, For 1 dose 0420 (New Bag - Prov ider: Luciano Bae RN)0633 (Stopped - Provider: Valery Jj RN) vancomycin 1500 mg/250 mL in sodium chloride 0.9% (premix) 1,500 mg (COMPLETED) 1,500 mg (rounded from 1,489.5 mg = 15 mg/kg ? 99.3 kg), intravenous, Administer over 90 Minutes, Once, On 01/20/22 at 0404, For 1 dose, Indications: Skin/Soft Tissue Infection 0440 (New Bag - Prov ider: Jamaal Carbajal, GUEVARA)0632 (Stopped - Provider: Valery Jj RN) documented in this encounter Orders Medications Ordered That Leon ht Not Have Been Administered Count Last Ordered Date First Ordered Date ondansetron (ZOFRAN) injection 4 mg 1 01/20 Nursing Count Last Ordered Date First Orde red Date APPLY EZRA WRAP 1 01/20/2022 documented in this encounter Care Teams Minibus Driver Relationship Specialty Start Date End Date Tip Armenta MD [address] [place] [address] PCP - General Family Medicine 03/18/19 Eleanor Ramon MD [address] [place] [address] Medical Oncologist/Molding And Trim Installer Hematology 07/12/20 documented as of this encounter
--- OUTSIDE RECORDS SUMMARY | 2024-05-18 22:14 | XMS_ITS | Encounter Summary ---
Author Organization [facility] Address [address] [place] [address] Phone Care Team Providers Care Lay Out Carpenter Name Role Phone Tip Armenta MD Primary Care Provider [phone] Eleanor Ramon MD Unavailable Encounter Details Date Type Department Care Team (Late st Contact Info) Description 05/17/2021 Orders Only [facility] Hematology [address] [facility] Advanced Medicine 7th [place] [address] [place] [address] Tamiko Chávez, GUEVARA Iron deficiency [...] on file Legal Sex Male 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 Endoscopy [address] [address] Nikolay Boucher MD [address] [place] [address] 05/22/2024 10:45 AM CORPORATE SECURITY MANAGER - 05/22/2024 11:15 AM CORPORATE SECURITY MANAGER Surgery [facility] Endoscopy [address] [place] [address] Nikolay Boucher MD [address] [place] [address] EGD Scheduled Procedures Name Priority Associated Diagnoses Date/Ti me ESOPHAGOGASTRODUODENOSCOPY Crohn's disease of both small and large intestine with intestinal obstruction (HCC) 05/22/2024 10:45 AM CORPORATE SECURITY MANAGER documented as of this encounter Visit Diagnoses Diagnosis Iron deficiency anemia, unspecified iron deficiency anemia type- Primary Crohn's disease of both small and large intestine with intestinal obstruction (HCC) documented in this encounter Orders Appointment Requests Count Last Ordered Date Fi rst Ordered Date ONCBCN INFUSION APPT REQUEST 1 06/07/2021 documented in this encounter Care Teams Lay Out Carpenter Relationship Specialty Start Date End Date Tip Armenta MD [address] [address] PCP - General Family Medicine 03/18/19 Eleanor Ramon MD [address] [place] [address] Medical Oncologist/Health Sciences Department Chair Hematology 07/12/20 documented as of this encounter
--- OUTSIDE RECORDS SUMMARY | 2024-05-18 22:14 | XMS_ITS | Encounter Summary ---
Author Organization [facility] Address [address] [place] [address] Phone Care Team Providers Care Coffee Taster Name Role Phone Tip Armenta MD Primary Care Provider [phone] Eleanor Ramon MD Unavailable [phone] Encounter Details Date Type Department Care Team (Late st Contact Info) Description 05/29/2021 Orders Only [facility] Neurosurgery [address] [facility] Medical Office Building [address] [place] [address] Christa Brenner NP [address] [place] [address] Status post cervical disc replacement (Primary Dx); 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 Social History Tobacco Use Types Packs/Day [...] on file Legal 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 Gender Identity Not on file Sexual Orientation Not on file documented as of this encounter Plan of Treatment Upcoming Encounters Date Type Department Care Team (Late st Contact Info) Description 05/22/2024 10:45 AM LANDSCAPE 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 Hospital Encounter [facility] Endoscopy [address] [address] Nikolay Boucher MD [address] [place] [address] 05/22/2024 10:45 AM LANDSCAPE 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 - 05/22/2024 11:15 AM LANDSCAPE 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 Surgery [facility] Endoscopy [address] [address] Nikolay Boucher MD [address] [place] [address] EGD Scheduled Procedures Name Priority Associated Diagnoses Date/Ti me ESOPHAGOGASTRODUODENOSCOPY Crohn's disease of both small and large intestine with intestinal obstruction (HCC) 05/22/2024 10:45 AM LANDSCAPE 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 documented as of this encounter Visit Diagnoses Diagnosis Status post cervical disc replacement- Primary 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
--- OUTSIDE RECORDS SUMMARY | 2024-05-18 22:14 | XMS_ITS | Encounter Summary ---
Author Organization [facility] Address [address] [place] [address] Phone Care Team Providers Care Loss Prevention Analyst Name Role Phone Tip Armenta MD Primary Care Provider [phone] Eleanor Ramon MD Unavailable [phone] Encounter Details Date Type Department Care Team (Late st Contact Info) Description 05/15/2021 Orders Only [facility] Hematology [address] [facility] Advanced Medicine 7th [place] [address] [place] [address] Tamiko Chávez, GUEVARA Iron deficiency [...] on file Legal Sex Male 1:20 AM HOUSEKEEPER/LAUNDRY ASSISTANT Gender Identity Not on file Sexual Orientation Not on file documented as of this encounter Plan of Treatment Upcoming Encounters Date Type Department Care Team (Late st Contact Info) Description 05/22/2024 10:45 AM HOUSEKEEPER/LAUNDRY ASSISTANT Hospital Encounter [facility] Endoscopy [address] [address] Nikolay Boucher MD [address] [place] [address] 05/22/2024 10:45 AM HOUSEKEEPER/LAUNDRY ASSISTANT - 05/22/2024 11:15 AM HOUSEKEEPER/LAUNDRY ASSISTANT Surgery [facility] Endoscopy [address] [place] [address] Nikolay Boucher MD [address] [place] [address] EGD Scheduled Procedures Name Priority Associated Diagnoses Date/Ti me ESOPHAGOGASTRODUODENOSCOPY Crohn's disease of both small and large intestine with intestinal obstruction (HCC) 05/22/2024 10:45 AM HOUSEKEEPER/LAUNDRY ASSISTANT documented as of this encounter Visit Diagnoses Diagnosis Iron deficiency anemia, unspecified iron deficiency anemia type- Primary Crohn's disease of both small and large intestine with intestinal obstruction (HCC) documented in this encounter Orders Appointment Requests Count Last Ordered Date Fi rst Ordered Date ONCBCN INFUSION APPT REQUEST 1 05/17/2021 documented in this encounter Care Teams Loss Prevention Analyst Relationship Specialty Start Date End Date Tip Armenta MD [address] [address] PCP - General Family Medicine 03/18/19 Eleanor Ramon MD [address] [place] [address] Medical Oncologist/Lining Stuffer Hematology 07/12/20 documented as of this encounter
--- OUTSIDE RECORDS SUMMARY | 2024-05-18 22:14 | XMS_ITS | Encounter Summary ---
Author Organization [facility] Address [address] [place] [address] Phone Care Team Providers Care Cigar Packer And Shader Name Role Phone Tip Armenta MD Primary Care Provider [phone] Eleanor Ramon MD Unavailable [phone] Encounter Details Date Type Department Care Team (Late st Contact Info) Description 10/25/2021 Telephone [facility] Neurosurgery [address] [facility] Advanced Medicine 6th [place] [address] [place] [address] Hank Allen Social History Tobacco Use Types Packs/Day Years [...] on file Legal Sex Male 1: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 Called pt, left detailed vm. Mailed reminder to pt. * Telephone Encounter - Hank Allen - 10/25/2021 10:06 AM CDT ----- Message from POLLO Moyer sent at 10/19/2021 9:24 AM CDT ----- Regarding: apt I told him as he was leaving we could follow up as needed. However, we should see him back in January with flexion/extension views of the cervical spine. documented in this encounter Plan of Treatment Upcoming Encounters Date Type Department Care Team (Late st Contact Info) Description 05/22/2024 10:45 AM SHIPYARD PAINTER APPRENTICE Hospital Encounter [facility] Endoscopy [address] [place] [address] Nikolay Boucher MD [address] [place] [address] 05/22/2024 10:45 AM SHIPYARD PAINTER APPRENTICE - 05/22/2024 11:15 AM SHIPYARD PAINTER APPRENTICE Surgery [facility] Endoscopy [address] [address] Nikolay Boucher MD [address] [place] [address] EGD Scheduled Procedures Name Priority Associated Diagnoses Date/Ti in ESOPHAGOGASTRODUODENOSCOPY Crohn's disease of both small and large intestine with intestinal obstruction (HCC) 05/22/2024 10:45 AM SHIPYARD PAINTER APPRENTICE documented as of this encounter Visit Diagnoses Not on filedocumented in this encounter Care Teams Cigar Packer And Shader Relationship Specialty Start Date End Date Tip Armenta MD [address] [address] PCP - General Family Medicine 03/18/19 Eleanor Ramon MD [address] [place] [address] Medical Oncologist/Varitype Operator Hematology 07/12/20 documented as of this encounter
--- OUTSIDE RECORDS SUMMARY | 2024-05-18 22:14 | XMS_ITS | Encounter Summary ---
Author Organization [facility] Address [address] [place] [address] Phone Care Team Providers Care Prover Name Role Phone Tip Armenta MD Primary Care Provider [phone] Eleanor Ramon MD Unavailable [phone] Reason for Referral * Diagnostic Imaging (Routine) - Closed Specialty Diagnoses / Procedures Referred By Contac t Referred To Contact Diagnoses Status post cervical disc replacement Procedures XR Spine Cervical 2 or 3 Views Sergio Chavira MD [address] [place] [address] Phone: tel: fax: [address] [address] Referral ID Status Reason Start Date Expiration Date Visits Re quested Visits Authorized [id number] Closed 07/05/2021 08/04/2022 1 1 ANALYST Encounter Details Date Type Department Care Team (Late st Contact Info) Description 07/05/2021 Orders Only [facility] Neurosurgery [address] [facility] Medical Office Building [address] [place] [address] Sergio Chavira MD [address] [place] [address] Status post cervical disc replacement [...] on file Legal Sex Male 1:20 AM LAN ANALYST Gender Identity Not on file Sexual Orientation Not on file documented as of this encounter Plan of Treatment Upcoming Encounters Date Type Department Care Team (Late st Contact Info) Description 05/22/2024 10:45 AM LAN ANALYST Hospital Encounter [facility] Endoscopy [address] [place] [address] Nikolay Boucher MD [address] [place] [address] 05/22/2024 10:45 AM LAN ANALYST - 05/22/2024 11:15 AM LAN ANALYST Surgery [facility] Endoscopy [address] [address] Nikolay Boucher MD [address] [place] [address] EGD Scheduled Procedures Name Priority Associated Diagnoses Date/Ti ca ESOPHAGOGASTRODUODENOSCOPY Crohn's disease of both small and large intestine with intestinal obstruction (HCC) 05/22/2024 10:45 AM LAN ANALYST documented as of this encounter Results * XR Spine Cervical 2 or 3 Views (07/12/2021 8:22 AM LAN ANALYST) Anatomical Region Laterality Modality Spine N/A Computed Radiogr aphy 07/12/2021 8:30 AM LAN ANALYST Impressions 07/12/2021 8:30 AM LAN ANALYST 1. ??Unchanged C6-7 disc arthroplasty in expected position. Electronically signed by: Ekaterina Goldstein MD Narrative 07/12/2021 8:30 AM LAN ANALYST EXAMINATION: XR SPINE CERVICAL 2 OR 3 [...] position. Electronically signed by: Ekaterina Goldstein MD [facility] Vladimir Chavira MD IMG XR PROCEDURES Final Re sult documented in this encounter Visit Diagnoses Diagnosis Status post cervical disc replacement- Primary Status post cervical disc replacement Crohn's disease of both small and large intestine with intestinal obstruction (HCC) documented in this encounter Care Teams Prover Relationship Specialty Start Date End Date Tip Armenta MD [address] [address] PCP - General Family Medicine 03/18/19 Eleanor Ramon MD [address] [facility] [address] [place] [address] Medical Oncologist/Database Analyst Hematology 07/12/20 documented as of this encounter
--- OUTSIDE RECORDS SUMMARY | 2024-05-18 22:14 | XMS_ITS | Encounter Summary ---
Author Organization [facility] Address [address] [place] [address] Phone Care Team Providers Care Gun Examiner Name Role Phone Tip Armenta MD Primary Care Provider [phone] Eleanor Ramon MD Unavailable [phone] Reason for Visit * Reason Onset Date Comments Prior Auth for Humira 08/10/2021 Wrong medi cation Encounter Details Date Type Department Care Team (Late st Contact Info) Description 08/10/2021 Documentation [facility] 8th [place] [address] [place] [address] Sofia Talamantes Prior Auth for Humira (Wrong medication) Social History Tobacco Use Types Packs/Day Years [...] on file Legal 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 Gender Identity Not on file Sexual Orientation Not on file documented as of this encounter Progress Notes * Sofia Talamantes - 08/10/2021 7:50 AM CDT 08/12/21 - PA approved through [facility] #[id number] starting 08/12/2021 through 08/12/2022 (2 per 28 days) [facility] for [place] (2 per 28 days) documented in this encounter Plan of Treatment Upcoming Encounters Date Type Department Care Team (Late st Contact Info) Description 05/22/2024 10:45 AM SALES SERVICE PROFESSIONAL Hospital Encounter [facility] Endoscopy [address] [place] [address] Nikolay Boucher MD [address] [place] [address] 05/22/2024 10:45 AM SALES SERVICE PROFESSIONAL - 05/22/2024 11:15 AM SALES SERVICE PROFESSIONAL Surgery [facility] Endoscopy [address] [place] [address] Nikolay Boucher MD [address] [place] [address] EGD Scheduled Procedures Name Priority Associated Diagnoses Date/Ti va ESOPHAGOGASTRODUODENOSCOPY Crohn's disease of both small and large intestine with intestinal obstruction (HCC) 05/22/2024 10:45 AM SALES SERVICE PROFESSIONAL documented as of this encounter Visit Diagnoses Not on filedocumented in this encounter Care Teams Gun Examiner Relationship Specialty Start Date End Date Tip Armenta MD [address] [address] PCP - General Family Medicine 03/18/19 Eleanor Ramon MD [address] [place], [place] [address] Medical Oncologist/Credit Interviewer Hematology 07/12/20 documented as of this encounter
--- OUTSIDE RECORDS SUMMARY | 2024-05-18 22:14 | XMS_ITS | Encounter Summary ---
Author Organization [facility] Address [address] [place] [address] Care Team Providers Care License Distributor Name Role Phone Tip Armenta MD Primary Care Provider [phone] Eleanor Ramon MD Unavailable [phone] Reason for Referral * Procedure (Routine) - Closed Specialty Diagnoses / Procedures Referred By Hugo t Referred To Contact Diagnoses Prepatellar bursitis of right knee Procedures Large Joint (Hip, Knee, Shoulder) Injection: R patellar bursa: R knee Stephen Morejon DO [address] [place] [address] [address] [place] [address] Phone: tel: fax: [facility] Medical [facility] Referral ID Status Reason Start Date Expiration Date Visits Re quested Visits Authorized [id number] Closed 01/24/2022 02/23/2023 1 1 Reason for Visit * Reason Comments Pain Encounter Details Date Type Department Care Team (Late st Contact Info) Description 01/24/2022 8:30 AM CDT Office Visit [facility] Medical [facility] Orthopedics and Sports Medicine [facility] [facility] [address] [place] [address] Stephen Morejon DO [address] [place] [address] [address] [place] [address] Prepatellar bursitis of right knee (Primary Dx) Social History Tobacco Use Types [...] on file 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 NEW PATIENT VISIT Subjective CHIEF COMPLAINT He had concerns including Pain of the Right Knee. HISTORY OF PRESENT ILLINESS Patient presents for evaluation of his right knee. He has been having pain in his right knee and swelling for the past 10 days. 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 He he thinks he may have gotten his wound contaminated with sewage when he was kneeling down to [facility]. He was seen in emergency department this past weekend and received a dose of vancomycin. Thisdid help his pain for a day or so but is since returned. He localizes pain to the anterior aspect of his knee. He has not had any fevers or chills. He has been having increasing swelling in the rightleg. He also has some pain with walking no history of diabetes or smoking. Does have a history of Cr ohn's and is on Humira PAST MEDICAL HISTORY He has a past medical history of Anemia, Anxiety and depression, Crohn's colitis (CMS/HCC) (HCC), GERD (gastroesophageal reflux disease), and Hypertension. PAST SURGICAL HISTORY He has a past surgical history that includes Small Bowel Resection. MEDICATIONS He has a current medication list which includes the following prescription(s): acetaminophen-codeine, humira(cf) pen, alprazolam, amitriptyline, amlodipine, bd safetyglide syringe, cialis, cyanocobalamin, diphenoxylate-atropine, folic acid, hydrochlorothiazide, hydrocodone-acetaminophen, hyoscyamine, irbesartan, lansoprazole, magnesium oxide,aspartate,citr, montelukast, ondansetron, testosterone cypionate, and zolpidem, and the following Facility-Administered Medications: hydromorphone and nystatin. ALLERGIES He is allergic to latex. SOCIAL HISTORY He reports that he has never smoked. He has never used smokeless tobacco. He reports that he does not use drugs. Patient reports consuming alcoholic drinks monthly or less, with a daily consumption of drinks. Patient denies daily consumption of 6 or more alcoholic drinks at one occasion. FAMILY HISTORY Family History Problem Relation Age of Onset ??? No Known Problems Mother ??? No Known Problems Father REVIEW OF SYSTEMS Constitutional: Negative for chills and fever. HENT: Negative for ear pain and sore throat. Eyes: Negative for pain and visual disturbance. Respiratory: Negative for shortness of breath and wheezing. Cardiovascular: Negative for chest pain and palpitations. Gastrointestinal: Negative for abdominal distention and abdominal pain. Genitourinary: Negative for dysuria and hematuria. Skin: Negative for pallor and rash. Neurological: Negative for syncope and numbness. Objective PHYSICAL EXAM There were no vitals taken for this visit. Gen: No acute distress, well developed Head: Atraumatic Eyes: EOM are normal Ears: Hearing intact to spoken word Cardiovascular: Rate is regular Pulmonary: No respiratory distress Adominal: soft Neurologic: Patient oriented to person, place and time Psychiatric: Normal mood and affect MSK: Exam of the right knee shows no erythema or overlying signs of infection. There is some bogginess along the prepatellar bursa. There is warmth over the anterior aspect of the knee. No clinical fusion along the joint line. Minimal discomfort with flexion and extension. Patellar tendon and quadriceps tendon intact. No tenderness along the medial joint line or lateral joint line. Ligamentously stable. Gross motor sensory intact. There is diffuse swelling about the right leg. Calf soft nontender. REVIEW OF X-RAYS/STUDIES/LABS X-rays of the right knee reviewed and interpreted. No acute osseous abnormality with mild soft tissue swelling Diagnoses and all orders for this visit: Prepatellar bursitis of right knee (Primary) Plan: Discussed clinical findings with the patient. His symptoms are concerning for septic bursitis. He does have some bogginess along the anterior aspect of his prepatellar bursa. This was attempted to beaspirated in clinic but I was not able to extract any fluid. No gross purulence was expressed from the aspiration site. Due to his continued symptoms for the past 10 days and diffuse lower extremity swelling I am going to refer him over to the hospital for admission. He is likely going to need IV antibiotics to clear up his infection. We will also order Doppler to rule out DVT. No surgical intervention planned at this time but will continue to follow after admission. All questions addressed today. Large Joint (Hip, Knee, Shoulder) Injection: R patellar bursa: R knee Performed by: Stephen Morejon DO Authorized by: Stephen Morejon DO Large Joint Injection/Aspiration: Consent Given by: Patient Site marked: the procedure site was marked Verbal consent obtained: Yes Procedure Details: Location: Knee Site: R knee Prep: patient was prepped using a clean technique Aspirate amount (mL): 1 Aspirate: Bloody Patient tolerance: Patient tolerated the procedure well with no immediate complications Unable to aspirate any fluid from the knee Stephen Morejon DO documented in this encounter Plan of Treatment Upcoming Encounters Date Type Department Care Team (Late st Contact Info) Description 05/22/2024 10:45 AM [facility] Hospital Encounter [facility] [address] [place] [address] Nikolay Boucher MD [address] [place] [address] 05/22/2024 10:45 AM [facility] - 05/22/2024 11:15 AM [facility] Surgery [facility] [address] [place] [address] Nikolay Boucher MD [address] [place] [address] EGD Scheduled Procedures Name Priority Associated Diagnoses Date/Ti me ESOPHAGOGASTRODUODENOSCOPY Crohn's disease of both small and large intestine with intestinal obstruction (HCC) 05/22/2024 10:45 AM LEATHER TOGGLER documented as of this encounter Procedures Procedure Name Priority Date/Time Associated Diagnosis Comments LARGE JOINT ARTHROCENTESIS Routine 01/24/2022 8:30 AM CDT Prepatellar bursitis of right knee documented in this encounter Results * Large Joint (Hip, Knee, Shoulder) Injection: R patellar bursa: R knee (01/24/2022 8:30 AM CDT) Narrative Stephen Morejon DO - 01/24/2022 8:30 AM CDT Stephen Morejon DO ? 01/24/2022 ??4:30 PM Large Joint (Hip, Knee, Shoulder) Injection: R patellar bursa: R knee Performed by: Stephen Morejon DO Authorized by: Stephen Morejon DO Large Joint Injection/Aspiration: ??Consent Given by: ??Patient ??Site marked: the procedure site was marked ?Verbal consent obtained: Yes ?? Procedure Details: ??Location: ??Knee ??Site: ??R knee ??Prep: patient was prepped using a clean technique ?Aspirate amount (mL): ??1 ??Aspirate: ??Bloody ??Patient tolerance: ??Patient tolerated the procedure well with no immediate complications ?? Unable to aspirate any fluid from the knee Stephen Morejon DO IN CLINIC/BEDSIDE ORDERABLES F inal Result documented in this encounter Visit Diagnoses Diagnosis Prepatellar bursitis of right knee- Primary Crohn's disease of both small and large intestine with intestinal obstruction (HCC) documented in this encounter Care Teams License Distributor Relationship Specialty Start Date End Date Tip Armenta MD [address] [address] PCP - General Family Medicine 03/18/19 Eleanor Ramon MD [address] [place] [address] Medical Oncologist/Associate Manager Hematology 07/12/20 documented as of this encounter"
--- OUTSIDE RECORDS SUMMARY | 2024-05-18 22:14 | XMS_ITS | Encounter Summary ---
Author Organization [facility] Address [address] [place] [address] Phone Care Team Providers Care Rn Clinical Resource Name Role Phone Tip Armenta MD Primary Care Provider [phone] Eleanor Ramon MD Unavailable [phone] Encounter Details Date Type Department Care Team (Late st Contact Info) Description 10/19/2021 9:00 AM CDT Office Visit [facility] Neurosurgery [address] [place] [address] Michael Viveros PA [address] [place] [address] Annular tear of lumbar disc [...] on file 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 Gender Identity Not on file Sexual Orientation Not on file documented as of this encounter Last Filed Vital Signs Vital Sign Reading Time Taken Comments Blood Pressure 156/92 10/19/2021 8:51 AM CDT Pulse 78 10/19/2021 8:51 AM CDT Temperature - - Respiratory Rate - - Oxygen Saturation - - Inhaled Oxygen Concentration - - Weight 104 kg (229 lb 3.2 oz) 10/19/2021 8:51 AM CDT Height 185.4 cm (6' 1 ) 10/19/2021 8:51 AM CDT Body Mass Index 30.24 10/19/2021 8:51 AM CDT documented in this encounter Progress Notes * Michael Viveros PA - 10/19/2021 9:00 AM CDT RETURN VISIT Subjective HISTORY OF PRESENT ILLNESS 56-year-old male returns to clinic to review his cervical x-rays status post C6- 7 disc arthroplasty, January of [address] Concepcion. The patient 1st came to see us he was complaining of some lowerback pain complaints and MRI noted a flat back deformity as well as new disc disease and annular tear at L5-S1. No other significant findings were noted such as foraminal stenosis or central stenosis. The patient does admit to some intermittent lower back pain complaints that worsens with activity.He denies any significant numbness or tingling complaints but he does admit to some ???hypersensitivity with lower extremity numbness and tingling complaints and claudication like symptoms that is very intermittent and rare. Overall, he admits postoperative from neck disc replacement he is doing well without any significant complaints. He admits that his balance has improved. The numbness and tingling involving left upper extremity has also improved. He denies any significant myelopathy like complaints. Overall, his subjective complaints toward myelopathy have improved post surgical. VITAL SIGNS BP 156/92 Pulse 78 Ht 185.4 cm (6' 1 ) Wt 104 kg (229 lb 3.2 oz) BMI 30.24 kg/m?? ALLERGIES He is allergic to latex. MEDICATIONS Current Outpatient Medications: ??? acetaminophen-codeine (TYLENOL with CODEINE #3) 300-30 mg per tablet, TAKE 1 TABLET BY MOUTH EVERY 4 HOURS NEEDED FOR PAIN, Disp: , Rfl: ??? adalimumab (Humira,CF, Pen) 40 mg/0.4 mL pen injector kit, Inject 0.4 mL (40 mg total) under the skin every 14 (fourteen) days Safety labs required every 3 months for med refills, labs due DEACON, Disp: 2 each, Rfl: 0 ??? ALPRAZolam (XANAX) 1 mg tablet, TK 1/2 TO 1 T PO BID PRF ANXIETY, Disp: , Rfl: 5 ??? amitriptyline (ELAVIL) 10 mg tablet, Take 10 mg by mouth nightly, Disp: , Rfl: ??? amLODIPine (NORVASC) 5 mg tablet, Take 5 mg by mouth every morning, Disp: , Rfl: ??? BD SAFETYGLIDE SYRINGE 3 mL 23 x 1 syringe, U UTD, Disp: , Rfl: 5 ??? CIALIS 20 mg tablet, TK 1 T PO QD PRN, Disp: , Rfl: 5 ??? cyanocobalamin (Vitamin B-12) 1,000 mcg/mL injection, INJECT 1 ML Q 2 WEEKS UTD, Disp: , Rfl: 4 ??? diphenoxylate-atropine (LOMOTIL) 2.5-0.025 mg per tablet, Take 1 tablet by mouth 3 (three) times a day as needed , Disp: , Rfl: 5 ??? folic acid (FOLVITE) 1 mg tablet, Take 1 mg by mouth every morning , Disp: , Rfl: 3 ??? gabapentin (NEURONTIN) 300 mg capsule, TAKE 1 CAPSULE(300 MG) BY MOUTH THREE TIMES DAILY, Disp:90 capsule, Rfl: 0 ??? hydroCHLOROthiazide (HYDRODIURIL) 25 mg tablet, Take 25 mg by mouth as needed , Disp: , Rfl: ??? hyoscyamine (LEVSIN) 0.125 mg tablet, Take 1 tablet (0.125 mg total) by mouth every 6 (six) hours as needed for cramping or diarrhea Take 1 tab PO every 6 hours as needed for spasms, Disp: 120 tablet, Rfl: 2 ??? irbesartan (AVAPRO) 300 mg tablet, Take 300 mg by mouth every morning, Disp: , Rfl: ??? lansoprazole (PREVACID) 15 mg capsule, Take 15 mg by mouth 2 (two) times a day , Disp: , Rfl: ??? magnesium oxide,aspartate,citr 400 mg magnesium capsule, Take 1 capsule by mouth as needed , Disp: , Rfl: ??? montelukast (SINGULAIR) 10 mg tablet, Take 10 mg by mouth as needed , Disp: , Rfl: 1 ??? mupirocin (mupirocin) 2 % ointment, Apply to each nostril 2 (two) times a day Use pea size amount in each nostril twice daily for five (5) days. After application, press sides of nose together and gently massage., Disp: 10 g, Rfl: 0 ??? nystatin 100,000 unit/mL suspension, Take 5 ml PO 2 times daily,swish and swallow for 14 days (Patient taking differently: 500,000 Units as needed Take 5 ml PO 2 times daily,swish and swallow for14 days), Disp: 140 mL, Rfl: 2 ??? ondansetron (ZOFRAN) 8 mg tablet, Take 8 mg by mouth as needed, Disp: , Rfl: 5 ??? testosterone cypionate (DEPO-TESTOTERONE) 200 mg/mL injection, INJ 1 ML IM Q WK, Disp: , Rfl: 5 ??? zolpidem (AMBIEN) 10 mg tablet, Take 10 mg by mouth nightly as needed , Disp: , Rfl: 5 Objective PHYSICAL EXAM Well-developed male in no acute distress Cranial nerves 2-12 grossly intact No pronator drift Bilateral upper extremity strength grossly 5/5, full and symmetric throughout including bilateral deltoids, biceps, triceps, wrist extension, wrist flexion. ??Hand tie sawyer is 5/5 but intrinsics are 4 to4+ out of 5. 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 Bilateral lower extremity strength notable for 4+ out of 5 bilateral iliopsoas strength, otherwise 5/5 in knee extension, knee flexion, dorsiflexion, plantar flexion, EHL. 2+ deep tendon reflexes on bilateral biceps and triceps reflexes 3+ deep tendon reflexes on bilateral patellar reflexes Negative Chavez's Negative Babinski Positive clonus in the right foot Failed tandem gait and Romberg gait test. Patient requires the use of I walking stick for ambulation. REVIEW OF IMAGING EXAMINATION: XR SPINE CERVICAL 2 OR 3 VIEWS HISTORY: C6-7 disc arthroplasty: 2 radiographs of the cervical spine are submitted for interpretation with comparison 03/30/2021. There is an unchanged C6-7 disc arthroplasty in expected position. No acute fracture or prevertebral soft tissue swelling is identified. The remaining disc spaces are normal. IMPRESSION: 1. Unchanged C6-7 disc arthroplasty in expected position. Lumbar MRI was reviewed from an outside institution from the date of December of 2020. This shows moderate spondylosis and annular tear of the disc within the L5-S1 level with mild spondylosis. There is mild central stenosis but bilateral foraminal stenosis moderate to severe at the L5-S1 level. There is a flat back of the thoracolumbar spine without any significant degenerative disc disease elsewhere within the lumbar spine Assessment/Plan Status post C6-7 disc replacement, January [address] Dr. Concepcion Flat back syndrome Foraminal stenosis L5-S1 History of cervical myelopathy PLAN Pleasant 56-year-old male returns to clinic status post a C6-7 disc replacement was performed in January 2021. His preoperative subjective cervical myelopathy like complaints have improved including balance disturbance and numbness. He does continue to feel some burning in his feet as well as some overall lower back pain complaints. His MRI lumbar spine was notable for an annular tear and mild central stenosis at L5-S1 without any significant foraminal stenosis. He does describe some intermittent claudication like symptoms in both lower extremities for which gabapentin recently has decreased these complaints. As we left the office today, we discussed an as-needed approach. However, after review I suggested a return to clinic in approximately 3 months to repeat x-rays including flexion-extension views to evaluate for any motion. The patient was cleared to start activities including strenuous activities. We can re-evaluate him in January 2022 when he is 1 year status post disc replacement surgery. BETSY Moyer PA-C documented in this encounter Plan of Treatment Upcoming Encounters Date Type Department Care Team (Late st Contact Info) Description 05/22/2024 10:45 AM NURSING CLINICAL DIRECTOR Hospital Encounter [facility] [address] [place] [address] Nikolay Boucher MD [address] [place] [address] 05/22/2024 10:45 AM NURSING CLINICAL DIRECTOR - 05/22/2024 11:15 AM NURSING CLINICAL DIRECTOR Surgery [facility] [address] [address] [address] Nikolay Boucher MD [address] [place] [address] EGD Scheduled Procedures Name Priority Associated Diagnoses Date/Ti me ESOPHAGOGASTRODUODENOSCOPY Crohn's disease of both small and large intestine with intestinal obstruction (HCC) 05/22/2024 10:45 AM NURSING CLINICAL DIRECTOR documented as of this encounter Visit Diagnoses Diagnosis Annular tear of lumbar disc- Primary Status post cervical disc replacement Crohn's disease of both small and large intestine with intestinal obstruction (HCC) documented in this encounter Care Teams Rn Clinical Resource Relationship Specialty Start Date End Date Tip Armenta MD [address] [address] PCP - General Family Medicine 03/18/19 Eleanor Ramon MD [address] [place] [address] Medical Oncologist/Instructor Trainer Canine Service Hematology 07/12/20 documented as of this encounter
--- OUTSIDE RECORDS SUMMARY | 2024-05-18 22:14 | XMS_ITS | Encounter Summary ---
Author Organization [facility] Address [address] [place] [address] Phone Care Team Providers Care Instrument And Control Service Person Name Role Phone Tip Armenta MD Primary Care Provider [phone] Eleanor Ramon MD Unavailable [phone] Encounter Details Date Type Department Care Team (Late st Contact Info) Description 05/30/2021 Orders Only [facility] Hematology [address] [place] [address] Yissel Stein, GUEVARA Social History Tobacco Use Types Packs/Day [...] file 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 [address] [place] [place] [address] Nikolay Boucher MD [address] [place] [address] 05/22/2024 10:45 AM AGRICULTURAL SCIENCES PROFESSOR - 05/22/2024 11:15 AM AGRICULTURAL SCIENCES PROFESSOR Surgery [facility] [address] [place] [address] Nikolay Boucher MD [address] [place] [address] EGD Scheduled Procedures Name Priority Associated Diagnoses Date/Ti me ESOPHAGOGASTRODUODENOSCOPY Crohn's disease of both small and large intestine with intestinal obstruction (HCC) 05/22/2024 10:45 AM AGRICULTURAL SCIENCES PROFESSOR documented as of this encounter Visit Diagnoses Not on filedocumented in this encounter Care Teams Instrument And Control Service Person Relationship Specialty Start Date End Date Tip Armenta MD [address] [address] PCP - General Family Medicine 03/18/19 Eleanor Ramon MD [address] [place] [address] Medical Oncologist/Quality Process Auditor Hematology 07/12/20 documented as of this encounter
--- OUTSIDE RECORDS SUMMARY | 2024-05-18 22:14 | XMS_ITS | Encounter Summary ---
Author Organization [facility] Address [address] [place] [address] Phone Care Team Providers Care Specification Writer Name Role Phone Tip Armenta MD Primary Care Provider [phone] Eleanor Ramon MD Unavailable [phone] Encounter Details Date Type Department Care Team (Late st Contact Info) Description 05/15/2021 Orders Only [facility] Hematology [address] [facility] 7th [place] [address] [place] [address] Tamiko Chávez, GUEVARA Social History Tobacco Use Types Packs/Day [...] on file 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 Gender Identity Not on file Sexual Orientation Not on file documented as of this encounter Plan of Treatment Upcoming Encounters Date Type Department Care Team (Late st Contact Info) Description 05/22/2024 10:45 AM COAL CUTTING MACHINE OPERATOR Hospital Encounter [facility] [address] [address] [place] [address] Nikolay Boucher MD [address] [place] [address] 05/22/2024 10:45 AM COAL CUTTING MACHINE OPERATOR - 05/22/2024 11:15 AM COAL CUTTING MACHINE OPERATOR Surgery [facility] [address] [place] [address] Nikolay Boucher MD [address] [place] [address] EGD Scheduled Procedures Name Priority Associated Diagnoses Date/Ti me ESOPHAGOGASTRODUODENOSCOPY Crohn's disease of both small and large intestine with intestinal obstruction (HCC) 05/22/2024 10:45 AM COAL CUTTING MACHINE OPERATOR documented as of this encounter Visit Diagnoses Not on filedocumented in this encounter Care Teams Specification Writer Relationship Specialty Start Date End Date Tip Armenta MD [address] [address] PCP - General Family Medicine 03/18/19 Eleanor Ramon MD [address] [place] [address] Medical Oncologist/Roll Up Guider Operator Hematology 07/12/20 documented as of this encounter
--- OUTSIDE RECORDS SUMMARY | 2024-05-18 22:14 | XMS_ITS | Encounter Summary ---
Author Organization [facility] Address [address] [facility] [address] [place] [address] Phone Care Team Providers Care Web Content Editor Name Role Phone Tip Armenta MD Primary Care Provider [phone] Eleanor Ramon MD Unavailable [phone] Reason for Visit * Reason Onset Date Comments Scheduling Appointments 06/02/2021 PT needs next available appt with Dr. Ramon at [facility] with ARM lab before-CR Encounter Details Date Type Department Care Team (Late st Contact Info) Description 06/02/2021 Telephone [facility] Scheduling [address] [place] [address] Primo Aparicio Scheduling Appointments (PT needs next available appt with Dr. Ramon at [facility] with ARM lab before-CR) Social History Tobacco Use Types Packs/Day Years [...] on file Legal Sex Male 1:20 AM BELT BRANDER Gender Identity Not on file Sexual Orientation Not on file documented as of this encounter Miscellaneous Notes * Telephone Encounter - Primo Aparicio - 06/02/2021 10:43 AM CST PT needs to schedule next available with Dr. Ramon (hematology) at the [facility] with ARM labs before (the f/a as of this note is 08/10/21 845 lab, 915 ROV)-CR BRANDER documented in this encounter Plan of Treatment Upcoming Encounters Date Type Department Care Team (Late st Contact Info) Description 05/22/2024 10:45 AM BELT BRANDER Hospital Encounter [facility] Endoscopy [address] [place] [address] Nikolay Boucher MD [address] [place] [address] 05/22/2024 10:45 AM BELT BRANDER - 05/22/2024 11:15 AM BELT BRANDER Surgery [facility] Endoscopy [address] [place] [address] Nikolay Boucher MD [address] [place] [address] EGD Scheduled Procedures Name Priority Associated Diagnoses Date/Ti me ESOPHAGOGASTRODUODENOSCOPY Crohn's disease of both small and large intestine with intestinal obstruction (HCC) 05/22/2024 10:45 AM BELT BRANDER documented as of this encounter Visit Diagnoses Not on filedocumented in this encounter Care Teams Web Content Editor Relationship Specialty Start Date End Date Tip Armenta MD [address] [address] PCP - General Family Medicine 03/18/19 Eleanor Ramon MD [address] [place] [address] Medical Oncologist/Associate Doctor Hematology 07/12/20 documented as of this encounter
--- OUTSIDE RECORDS SUMMARY | 2024-05-18 22:14 | XMS_ITS | Encounter Summary ---
Author Organization [facility] Address [address] [place] [address] Phone Care Team Providers Care Fire Equipment Inspector Name Role Phone Tip Armenta MD Primary Care Provider [phone] Eleanor Ramon MD Unavailable [phone] Reason for Visit * Episode Based Medications (Routine) - Closed Specialty Diagnoses / Procedures Referred By Contac t Referred To Contact Oncology Diagnoses Other iron deficiency anemia Erythrocytosis Procedures VA INJ FERRIC CARBOXYMALTOS 1MG FERRIC CARBOXYMALTOSE (INJECTAFER) INFUSION Eleanor Ramon MD [address] [place] [address] Phone: tel: fax: [facility] Oncology [address] [place] [phone] Phone: tel: Referral ID Status Reason Start Date Expiration Date Visits Re quested Visits Authorized [id number] Closed 04/03/2023 07/03/2023 1 12 Encounter Details Date Type Department Care Team (Late st Contact Info) Description 05/17/2021 7:30 AM TIN CUTTER Infusion [facility] Oncology [address] [facility] 7th [place] [address] Iron deficiency anemia, unspecified iron [...] on file Legal Sex Male 1:20 AM TIN CUTTER Gender Identity Not on file Sexual Orientation Not on file documented as of this encounter Last Filed Vital Signs Vital Sign Reading Time Taken Comments Blood Pressure 126/88 05/17/2021 8:28 AM TIN CUTTER Pulse 108 05/17/2021 7:37 AM TIN CUTTER Temperature 36.8 ??C (98.2 ??F) 05/17/2021 7:37 AM CS T Respiratory Rate 20 05/17/2021 7:37 AM TIN CUTTER Oxygen Saturation 97% 05/17/2021 7:37 AM TIN CUTTER Inhaled Oxygen Concentration - - Weight 97.6 kg (215 lb 2.7 oz) 05/17/2021 7:37 A M TIN CUTTER Height - - Body Mass Index 28.39 03/30/2021 10:30 AM CDT documented in this encounter Nursing Notes * Lashell Moon, RN - 05/17/2021 7:30 AM CST Oncology Nursing Note [facility] ONCOLOGY Mello Herbert is a 55 y.o. male who presents for treatment 2 of Injectafer. Pre-treatment Nursing Assessment Nursing Assessment Appetite:: Good (drinking plenty of fluids) Diarrhea:: No Constipation:: No Last BM Date: 05/17/21 (loose have Chrone's ) Existing Patients: Any falls since your last visit? : No Fatigue:: Constant Mouth Sores:: No Nausea/Vomiting:: No Pain:: Yes ( everything is achey all the time MD aware) Peripheral Neuropathy: : No Pt states has potential to be ? : N/A Shortness of Breath?: No (none at rest, has BRITTON that resolves with rest) Skin Condition/Temp: Warm,Dry,No swelling Oral Mucosa Grade: Normal (0) Abdomen: Soft Swelling:: No Additional Notes: Feels tired, achey, worn out Feels low Vit D level is why achey. Also Gets outof breath with activity. Not new. Declined premedications reporting took Tylenol and Zofran 8mg this morning I am premedicated Denies previous reaction to Injectafer. BP: 126/88 Temp: 36.8 ??C (98.2 ??F) Temp src: Oral Pulse: 108 Resp: 20 SpO2: 97 % Weight: 97.6 kg (215 lb 2.7 oz) Pain Score: 5 - Moderate pain Treatment Patient: met treatment parameters Pre blood return: Brisk Mello Herbert tolerated treatment well. Additional Notes: Asking for next appt for Injectafer, interstate bus dispatcher called who communicated with Team.Pt with itinerary before leaving. (may call team to switch date) Stayed for most of observation period then left. No reaction noted. Post blood return: Brisk IV access post infusion: NS Patient Education Treatment Education: Information/teaching given to patient including Symptom management Response: Verbalizes understanding Discharge Plan Discharge instructions given to patient. Future appointments given and reviewed with treatment plan. Discharge Mode: Ambulatory Accompanied by: Self Discharged To: Home CUTTER CUTTER documented in this encounter Plan of Treatment Upcoming Encounters Date Type Department Care Team (Late st Contact Info) Description 05/22/2024 10:45 AM TIN CUTTER Hospital Encounter [facility] Endoscopy [address] [place] [address] Nikolay Boucher MD [address] [place] [address] 05/22/2024 10:45 AM TIN CUTTER - 05/22/2024 11:15 AM TIN CUTTER Surgery [facility] Endoscopy [address] [place] [address] Nikolay Boucher MD [address] [place] [address] EGD Scheduled Procedures Name Priority Associated Diagnoses Date/Ti me ESOPHAGOGASTRODUODENOSCOPY Crohn's disease of both small and large intestine with intestinal obstruction (HCC) 05/22/2024 10:45 AM TIN CUTTER documented as of this encounter Visit Diagnoses [...] mL/hr, Administer over 20 Minutes, Once, On Sat05/17/21 at 0830, For 1 doseIndications:Other iron deficiency anemia,Erythrocytosis New Bag 05/17/2021 9:00 AM TIN CUTTER 750 mg 795 mL/hr documented in this encounter Orders Medications Ordered That Leon ht Not Have Been Administered Count Last Ordered Date First Ordered Date ferric carboxymaltose (INJEC TAFER) 750 mg in sodium chloride 0.9% 250 mL IVPB 1 05/17/2021 Appointment Requests Count Last Ordered Date Fi rst Ordered Date ONCBCN INFUSION APPT REQUEST 1 05/17/2021 documented in this encounter Care Teams Fire Equipment Inspector Relationship Specialty Start Date End Date Tip Armenta MD [address] [address] PCP - General Family Medicine 03/18/19 Eleanor Ramon MD [address] [place] [address] Medical Oncologist/Patternmaker Plastics Hematology 07/12/20 documented as of this encounter
--- OUTSIDE RECORDS SUMMARY | 2024-05-18 22:14 | XMS_ITS | Encounter Summary ---
Author Organization [facility] Address [address] [place] [address] Phone Care Team Providers Care Window Cleaner Name Role Phone Tip Armenta MD Primary Care Provider [phone] Eleanor Ramon MD Unavailable [phone] Reason for Visit * Episode Based Medications (Routine) - Closed Specialty Diagnoses / Procedures Referred By Contac t Referred To Contact Oncology Diagnoses Other iron deficiency anemia Erythrocytosis Procedures ID INJ FERRIC CARBOXYMALTOS 1MG FERRIC CARBOXYMALTOSE (INJECTAFER) INFUSION Eleanor Ramon MD [address] [place] [address] Phone: tel: fax: [facility] Oncology [address] [place] [phone] Phone: tel: Referral ID Status Reason Start Date Expiration Date Visits Re quested Visits Authorized [id number] Closed 04/03/2023 07/03/2023 1 12 Encounter Details Date Type Department Care Team (Late st Contact Info) Description 06/07/2021 7:30 AM CLOCK SMITH Infusion [facility] Oncology [address] [facility] 7th [place] [address] Iron deficiency anemia, unspecified iron [...] on file Legal Sex Male 1:20 AM CLOCK SMITH Gender Identity Not on file Sexual Orientation Not on file documented as of this encounter Last Filed Vital Signs Vital Sign Reading Time Taken Comments Blood Pressure 160/90 06/07/2021 7:33 AM CLOCK SMITH Pulse 81 06/07/2021 7:33 AM CLOCK SMITH Temperature 36.7 ??C (98.1 ??F) 06/07/2021 7:33 AM CS T Respiratory Rate 18 06/07/2021 7:33 AM CLOCK SMITH Oxygen Saturation 96% 06/07/2021 7:33 AM CLOCK SMITH Inhaled Oxygen Concentration - - Weight 99.2 kg (218 lb 11.1 oz) 06/07/2021 7:33 AM CLOCK SMITH Height - - Body Mass Index 28.85 03/30/2021 10:30 AM CDT documented in this encounter Nursing Notes * Valery Deal, RN - 06/07/2021 7:30 AM CST Oncology Nursing Note [facility] ONCOLOGY Mello Herbert is a 56 y.o. male who presents for treatment cycle 3, day(s) 1 of [facility]. Pre-treatment Nursing Assessment Nursing Assessment Appetite:: Good Diarrhea:: Yes (baseline) Constipation:: No Last BM Date: 06/07/21 Existing Patients: Any falls since your last visit? : No Fatigue:: Constant Mouth Sores:: No Nausea/Vomiting:: No Pain:: Yes (generalized aches and pains/nothing new or severe) Peripheral Neuropathy: : No Pt states has potential to be ? : N/A Shortness of Breath?: No Skin Condition/Temp: Warm,Dry Oral Mucosa Grade: Normal (0) Abdomen: Soft Swelling:: No Additional Notes: BP: 160/90 Temp: 36.7 ??C (98.1 ??F) Temp src: Oral Pulse: 81 Resp: 18 SpO2: 96 % Weight: 99.2 kg (218 lb 11.1 oz) Treatment Patient: met treatment parameters Pre blood return: Brisk Mello Herbert tolerated treatment well. Additional Notes: patient took his own premeds at home per his report. Observed for 30 min. Post infusion with no issues noted. Post blood return: Brisk IV access post infusion: NS Patient Education Treatment Education: Information/teaching given to patient including please report any issues to medical team. Response: Verbalizes understanding Discharge Plan Discharge instructions given to patient. Future appointments given and reviewed with treatment plan. Discharge Mode: Ambulatory Accompanied by: Self Discharged To: Home K SMITH documented in this encounter Plan of Treatment Upcoming Encounters Date Type Department Care Team (Late st Contact Info) Description 05/22/2024 10:45 AM CLOCK SMITH Hospital Encounter [facility] Endoscopy [address] [place] [address] Nikolay Boucher MD [address] [place] [address] 05/22/2024 10:45 AM CLOCK SMITH - 05/22/2024 11:15 AM CLOCK SMITH Surgery [facility] Endoscopy [address] [place] [address] Nikolay Boucher MD [address] [place] [address] EGD Scheduled Procedures Name Priority Associated Diagnoses Date/Ti id ESOPHAGOGASTRODUODENOSCOPY Crohn's disease of both small and large intestine with intestinal obstruction (HCC) 05/22/2024 10:45 AM CLOCK SMITH documented as of this encounter Visit Diagnoses [...] mL/hr, Administer over 20 Minutes, Once, On Sat06/07/21 at 0815, For 1 doseIndications:Other iron deficiency anemia New Bag 06/07/2021 8:06 AM CLOCK SMITH 750 mg 795 mL/hr documented in this encounter Orders Medications Ordered That Leon ht Not Have Been Administered Count Last Ordered Date First Ordered Date acetaminophen (TYLENOL) tablet 650 mg 1 04/2022 diphenhydrAMINE (BENADRYL) tab/cap 25 mg 1 06/07/2021 ondansetron (ZOFRAN) tablet 4 mg 1 06/07/19 Nursing Count Last Ordered Date First Orde red Date 1:1 OBSERVATION 1 06/07/2021 Appointment Requests Count Last Ordered Date Fi rst Ordered Date ONCBCN INFUSION APPT REQUEST 1 06/07/2021 documented in this encounter Care Teams Window Cleaner Relationship Specialty Start Date End Date Tip Armenta MD [address] [address] PCP - General Family Medicine 03/18/19 Eleanor Ramon MD [address] [place] [address] Medical Oncologist/Parts Counter Representative Hematology 07/12/20 documented as of this encounter
--- OUTSIDE RECORDS SUMMARY | 2024-05-18 22:14 | XMS_ITS | Encounter Summary ---
Author Organization [facility] Address [address] [place] [address] Phone Care Team Providers Care Roundhouse Supervisor Name Role Phone Tip Armenta MD Primary Care Provider [phone] Eleanor Ramon MD Unavailable [phone] Encounter Details Date Type Department Care Team (Late st Contact Info) Description 07/12/2021 9:00 AM BARTACKER Office Visit [facility] Neurosurgery [address] [facility] [address] [place] [address] Michael Viveros PA [address] [place] [address] Status post cervical disc replacement (Primary Dx); Annular tear of lumbar disc; Foraminal stenosis of lumbosacral region; Lumbosacral stenosis [...] on file Legal Sex Male 1:20 AM BARTACKER Gender Identity Not on file Sexual Orientation Not on file documented as of this encounter Last Filed Vital Signs Vital Sign Reading Time Taken Comments Blood Pressure 131/78 07/12/2021 8:44 AM BARTACKER Pulse 103 07/12/2021 8:44 AM BARTACKER Temperature - - Respiratory Rate - - Oxygen Saturation - - Inhaled Oxygen Concentration - - Weight 99.2 kg (218 lb 9.6 oz) 07/12/2021 8:44 A M BARTACKER Height 185.4 cm (6' 1 ) 07/12/2021 8:44 AM BARTACKER Body Mass Index 28.84 07/12/2021 8:44 AM BARTACKER documented in this encounter Ordered Prescriptions Prescription Sig Dispense Quantity Refills Last Filled Start Date End Date gabapentin (NEURONTIN) 300 mg capsule Take 1 capsule (300 mg total) by mouth 3 (three) times a day 90 capsule 07/12/2021 2 documented in this encounter Progress Notes * Michael Viveros PA - 07/12/2021 9:00 AM CST RETURN VISIT Subjective HISTORY OF PRESENT ILLNESS This is a pleasant 56-year-old male who returns to the office to repeat x-rays of the cervical spine status post a C6-7 disc arthroplasty, January of [address] Concepcion. When he 1st came to see as he was also complaining some lower back pain and had an MRI ordered by his primary care provider that noted flat back and degenerative disc with an annular tear at L5-S1. No other significant findings were noted such degenerative disc disease foraminal stenosis or centralstenosis elsewhere throughout the lumbar spine. Since his decompression, he has noted improvement of balance and improvement of subjective complaints related to myelopathy. He does admit however since surgery he has felt ???hypersensitive?? with bilateral lower extremity numbness and tingling typecomplaints and claudication leg symptoms. He does admit to some burning across the lower back whichis usually located axial and more to the right side. He has attempted physical therapy for his lower back in the past and has failed to improve his significant portion of his complaints. He is [id number] options for pain management. He denies any neck pain complaints, numbness in his hands as he has noted improvement of subjectivecomplaints toward myelopathy. VITAL SIGNS There were no vitals taken for this visit. ALLERGIES He is allergic to latex. MEDICATIONS [...] months for med refills. Next labs due 04/2021., Disp: 2 each, Rfl: 2 ??? ALPRAZolam (XANAX) 1 mg tablet, TK 1/ TO 1 T PO BID PRF ANXIETY, [...] morning , Disp: , Rfl: 3 ??? hydroCHLOROthiazide (HYDRODIURIL) 25 mg tablet, Take 25 mg by mouth as needed , Disp: , Rfl: ??? hyoscyamine (LEVSIN) 0.125 mg tablet, Take 1 tab PO every 6 hours as needed for spasms (Patienttaking differently: 0.125 mg every 4 (four) hours as needed Take 1 tab PO every 6 hours as needed for spasms), Disp: 120 tablet, Rfl: 5 ??? irbesartan (AVAPRO) 300 mg tablet, Take 300 mg by mouth every morning, Disp: , Rfl: ??? lansoprazole (PREVACID) 15 mg capsule, Take 15 mg by mouth 2 (two) times a day , Disp: , Rfl: ??? magnesium oxide,aspartate,citr (TRIPLE MAGNESIUM COMPLEX) 400 mg capsule, Take 1 capsule by mouth as needed , Disp: , Rfl: ??? meloxicam (MOBIC) 15 mg tablet, , Disp: , Rfl: ??? montelukast (SINGULAIR) [...] 2 ??? ondansetron (ZOFRAN) 8 mg tablet, TK 1 T PO TID PRN, Disp: , Rfl: 5 ??? oxyCODONE (ROXICODONE) 5 mg immediate release tablet, Take 1-2 tablets (5-10 mg total) by mouthevery 6 (six) hours as needed for pain, Disp: 42 tablet, Rfl: 0 ??? testosterone cypionate (DEPO-TESTOTERONE) 200 mg/mL injection, INJ 1 ML IM Q WK, Disp: , Rfl: 5 ??? vit A-vit A-tlvp-vjhglhpo (ZINC WITH VITAMINS A AND C) 15 mg lozenge, Take 1 tablet by mouth asneeded , Disp: , Rfl: ??? zolpidem (AMBIEN) 10 mg tablet, Take 10 mg by mouth nightly as needed , Disp: , Rfl: 5 Objective PHYSICAL EXAM Well-developed male in no acute distress Cranial nerves 2-12 grossly intact No pronator drift Bilateral upper extremity strength grossly 5/5, full and symmetric throughout including bilateral deltoids, biceps, triceps, wrist extension, wrist flexion. Hand bleach machine operator is 5/5 but intrinsics are 4 to 4+ out of 5. I was able to over landrum intrinsics with my intrinsics which is unusual for what he describes is a very strong person who practices [employer] and describes himself to have a very strong bleach machine operator in use of his hands and fingers. [...] is identified. The remaining disc spaces are normal.?? IMPRESSION: 1. Unchanged C6-7 disc arthroplasty in [...] stenosis L5-S1 History of cervical myelopathy PLAN He is doing status post C6-7 disc replacement in January 2021. His pre- operative diagnosis included cervical myelopathy. He has noted improvement of his balance and gait. He feels in his terms hypersensitive now in the lower torso and legs. He feels burning on both of his feet. His lumbar MRI is notable for flat back as well as foraminal stenosis L5-S1 mild central stenosis L5-S1. He also has an annular tear of this segment. The patient is describing claudication like symptoms in both lower extremities that has now been more obvious to him since his decompression of the cervical spine. We suggested oral gabapentin that he can take to alleviate the numbness and tingling type complaints and nerve discomfort. I suggested a conservative treatment approach with physical therapy and oralgabapentin and re-evaluate his condition approximately 3 months. We could consider updating an MRI or a referral to pain management for possible injections. The patient is very pleased with his postoperative course of the C6-7 disc replacement. We re-evaluate his low back when he returns the officein approximately 3 months. BETSY Moyer PA-C ACKER documented in this encounter Plan of Treatment Upcoming Encounters Date Type Department Care Team (Late st Contact Info) Description 05/22/2024 10:45 AM BARTACKER Hospital Encounter [facility] Endoscopy [address] [place], [place] [address] Nikolay Boucher MD [address] [place] [address] 05/22/2024 10:45 AM BARTACKER - 05/22/2024 11:15 AM BARTACKER Surgery [facility] Endoscopy [address] [place] [address] Nikolay Boucher MD [address] [place] [address] EGD Scheduled Procedures Name Priority Associated Diagnoses Date/Ti pa ESOPHAGOGASTRODUODENOSCOPY Crohn's disease of both small and large intestine with intestinal obstruction (HCC) 05/22/2024 10:45 AM BARTACKER documented as of this encounter Visit Diagnoses Diagnosis Status post cervical disc replacement- Primary Annular tear of lumbar disc Foraminal stenosis of lumbosacral region Lumbosacral stenosis without neurogenic claudication Crohn's disease of both small and large intestine with intestinal obstruction (HCC) documented in this encounter Discontinued Medications Medication Sig Discontinue Reason Start Date End Da te meloxicam (MOBIC) 15 mg tablet Therapy completed 03/11/2021 07/12/2021 oxyCODONE (ROXICODONE) 5 mg immediate release tabletIndications:Pain Take 1-2 tablets (5-10 mg total) by mouth every 6 (six) hours as needed for pain Therapy completed 03/03/2021 07/12/2021 vit A-vit J-jjeg-vldvslot 15 mg lozenge Take 1 tablet by mouth as needed Therapy completed 10/12/2016 07/12/2021 documented as of this encounter Care Teams Roundhouse Supervisor Relationship Specialty Start Date End Date Tip Armenta MD [address] [address] PCP - General Family Medicine 03/18/19 Eleanor Ramon MD [address] [facility] [address] [place] [address] Medical Oncologist/Ultrasound Spec Hematology 07/12/20 documented as of this encounter
--- OUTSIDE RECORDS SUMMARY | 2024-05-18 22:14 | XMS_ITS | Encounter Summary ---
Author Organization [facility] Address [address] [place] [address] Phone Care Team Providers Care Boilermaker Loftsman Name Role Phone Tip Armenta MD Primary Care Provider [phone] Eleanor Ramon MD Unavailable [phone] Encounter Details Date Type Department Care Team (Late st Contact Info) Description 07/12/2021 Telephone [facility] Neurosurgery [address] [facility] 6th [place] [address] [place] [address] Hank Allen Social History Tobacco [...] on file Legal Sex Male 1:20 AM ARC CUTTER Gender Identity Not on file Sexual Orientation Not on file documented as of this encounter Miscellaneous Notes * Telephone Encounter - Hank Allen - 07/12/2021 9:28 AM CST Maria M can Good Morning, We have your 3 month Follow-up Visit with Michael Viveros scheduled for 10/19/21 at 9 am with an 8:15am arrival for x-rays. Your appointment will be at our [facility] location. Located at [address] [facility], Medical Office Building [address] [place] [address]. If you have any questions or concerns please feel free to call our office at [phone] or message us through [employer]. Reminder mailed to pt. CUTTER * Telephone Encounter - Hank Allen - 07/12/2021 9:28 AM CST ----- Message from POLLO Moyer sent at 07/12/2021 9:10 AM ARC CUTTER ----- Regarding: apt in three months Can we schedule an apt with him in three months with scoliosis, lumbar xrays? Also cervical flex/exxrays? CUTTER documented in this encounter Plan of Treatment Upcoming Encounters Date Type Department Care Team (Late st Contact Info) Description 05/22/2024 10:45 AM ARC CUTTER Hospital Encounter [facility] Endoscopy [address], [facility] Nikolay Boucher MD [address] [place] [id number] 05/22/2024 10:45 AM ARC CUTTER - 05/22/2024 11:15 AM ARC CUTTER Surgery [facility] Endoscopy [address] [place] [address] Nikolay Boucher MD [address] [place] [address] EGD Scheduled Procedures Name Priority Associated Diagnoses Date/Ti me ESOPHAGOGASTRODUODENOSCOPY Crohn's disease of both small and large intestine with intestinal obstruction (HCC) 05/22/2024 10:45 AM ARC CUTTER documented as of this encounter Visit Diagnoses Not on filedocumented in this encounter Care Teams Boilermaker Loftsman Relationship Specialty Start Date End Date Tip Armenta MD [address] [address] PCP - General Family Medicine 03/18/19 Eleanor Ramon MD [address] [facility] [address] [place] [address] Medical Oncologist/Cryptologic Technician Hematology 07/12/20 documented as of this encounter
--- OUTSIDE RECORDS SUMMARY | 2024-05-18 22:15 | XMS_ITS | Encounter Summary ---
Author Organization [facility] Healthcare Address [address] [place] [address] Care Team Providers Care Mounting Machine Operator Name Role Phone Tip Armenta MD Primary Care Provider [phone] Eleanor Ramon MD Unavailable [phone] Reason for Referral * Diagnostic Imaging (Routine) - Closed Specialty Diagnoses / Procedures Referred By Hugo welch Referred To Contact Diagnoses Neck pain Procedures XR Spine Cervical W Flexion And Extension 6 or More Views Clifford Concepcion MD [address] [place] [address] Phone: tel: fax: [address] [place] [address] Referral ID Status Reason Start Date Expiration Date Visits Re quested Visits Authorized [id number] Closed 02/06/2021 03/08/2022 1 1 Reason for Visit * Diagnostic Imaging (Routine) - Closed Specialty Diagnoses / Procedures Referred By Hugo welch Referred To Contact Diagnoses Neck pain Procedures XR Spine Cervical W Flexion And Extension 6 or More Views Clifford Concepcion MD [address] [place] [address] Phone: tel: fax: [place] [address] [place] [address] Referral ID Status Reason Start Date Expiration Date Visits Re quested Visits Authorized [id number] Closed 02/06/2021 03/08/2022 1 1 Encounter Details Date Type Department Care Team (Latest Contact Info) Description 02/09/2021 10:03 AM CDT - 02/09/2021 11:59 PM CDT Hospital Encounter [facility] [address] [facility] [address] [place] [id number] Clifford Concepcion MD [address] [place] [address] Neck pain Discharge Disposition: Discharge to home or self care Social History Tobacco Use Types Packs/Day Years Used Date Smoking Tobacco: Never Smokeless Tobacco: Never AUDIT-C Answer Date Recorded Q1: How often do you have a drink containing alc ohol? Never 02/10/2021 Average Number of Drinks Not on file 021 Frequency of Binge Drinking Not on file 01/25 Sex and Gender Information Value Date Recorded Sex Assigned at Not on file Legal Sex Male 1:20 AM HAND I BLOCKER Gender Identity Not on file Sexual Orientation Not on file documented as of this encounter Medications at Time of Discharge ALPRAZolam (XANAX) 1 mg tablet TK 05/28 [...] mg total) by mouth nightly as needed 12/13/2017 acetaminophen-code ine (TYLENOL with CODEINE #3) 300-30 mg per tablet Take 2 tablets by mouth every 8 (eight) hours as needed 5 02/09/2018 1 adalimumab (Humira,CF, Pen) 40 mg/0.4 mL pen injector kitIndications: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 2 each 2 12/30/[address] (CYMBALTA) 30 mg capsule TAKE ONE C BY MOUTH DAILY 2 06/23/2018 1 ergocalciferol (VITAMIN D) 50,000 unit capsule Take 1 cap PO one day a month 12 capsule 09/15/2018 1 hyoscyamine (LEVSIN) 0.125 mg tabletIndications: Urinary Incontinence Take 1 tab PO every 6 hours as needed for spasms 120 tablet 5 07/18/2020 2 losartan (COZAAR) 25 mg tablet Take 25 mg by mouth every morning 6 11/25/2017 1 meloxicam (MOBIC) 15 mg tablet Take 15 mg by mouth every morning 01/20/2021 1 mupirocin (BACTROBAN) 2 % ointment APPLY TOPICALLY TO THE AFFECTED AREA TWICE DAILY 11/07/2020 1 nystatin 100,000 unit/mL suspensionIndicati ons:Esophageal yeast infection (CMS/HCC) (HCC) Take 5 ml PO 2 times daily,swish and swallow for 14 days 140 mL 2 03/28/2020 2 sulfamethoxazole-t rimethoprim (BACTRIM DS) 800-160 mg per tablet Take 1 tablet by mouth as needed 01/07/2021 1 venlafaxine XR (EFFEXOR-XR) 37.5 mg 24 hr capsule TK 1 C PO QAM 2 07/14/201802/10 1 vit A-vit D-fool-tuuxwsxp 15 mg lozenge Take 1 tablet by mouth as needed 10/12/2016 2 documented as of this encounter Discharge Disposition Disposition Code Departure Means Destination Discharge to home or self care documented in this encounter Plan of Treatment Upcoming Encounters Date Type Department Care Team (Late st Contact Info) Description 05/22/2024 10:45 AM [facility] Hospital Encounter [facility] Endoscopy [address] [place] [address] Nikolay Boucher MD [address] [place] [address] 05/22/2024 10:45 AM HAND I BLOCKER - 05/22/2024 11:15 AM [facility] Surgery [facility]oscopy [address] [place] [address] Nikolay Boucher MD [address] [place] [address] EGD Scheduled Procedures Name Priority Associated Diagnoses Date/Ti me ESOPHAGOGASTRODUODENOSCOPY Crohn's disease of both small and large intestine with intestinal obstruction (HCC) 05/22/2024 10:45 AM HAND I BLOCKER documented as of this encounter Procedures Procedure Name Priority Date/Time Associated Diagnosis Comments XR SPINE CERVICAL W FLEXION AND EXTENSION 6 OR MORE VIEWS Schedule Routine, Read Routine (OP Routine) 02/09/2021 10:13 AM CDT Neck pain documented in this encounter Results * XR Spine Cervical W Flexion And Extension 6 or More Views (02/09/2021 10:13 AM CDT) Anatomical Region Laterality Modality Spine N/A Computed Radiogr aphy 02/09/2021 11:3 3 AM CDT Impressions 02/09/2021 4:59 PM CDT 1. ??Minimal multilevel facet osteoarthritis with patent bilateral neural foramina. Dictated by: Melecio Tpaia MD The radiology attending physician has personally reviewed this study, and had reviewed and/or edited this written report and agrees with it. Electronically signed by: Ekaterina Goldstein MD Narrative 02/09/2021 4:59 PM CDT EXAMINATION: XR SPINE CERVICAL W FLEXION AND EXTENSION 6 OR MORE VIEWS HISTORY: neck pain FINDINGS: 6 views of the cervical spine were obtained with comparison to MRI 01/11/2021. ??There is minimal multilevel facet osteoarthritis. The vertebral bodies and disc heights are maintained. ??There is no abnormal motion on flexion or extension. ??The neural foramina are patent bilaterally. Procedure Note Kristel Goldstein MD - 02/09/2021 EXAMINATION: XR SPINE CERVICAL W FLEXION AND EXTENSION 6 OR MORE VIEWS HISTORY: neck pain FINDINGS: 6 views of the cervical spine were obtained with comparison to MRI 01/11/2021. There is minimal multilevel facet osteoarthritis. The vertebral bodies and disc heights are maintained. There is no abnormal motion on flexion or extension. The neural foramina are patent bilaterally. IMPRESSION: 1. Minimal multilevel facet osteoarthritis with patent bilateral neural foramina. Dictated by: Melecio Tapia MD The radiology attending physician has personally reviewed this study, and had reviewed and/or edited this written report and agrees with it. Electronically signed by: Ekaterina Goldstein MD Result [facility] Clifford Concepcion MD IMG XR PROCEDURES Final Result documented in this encounter Visit Diagnoses Diagnosis Neck pain Cervicalgia Crohn's disease of both small and large intestine with intestinal obstruction (HCC) documented in this encounter Care Teams Mounting Machine Operator Relationship Specialty Start Date End Date Tip Armenta MD [address] [address] PCP - General Family Medicine 03/18/19 Eleanor Ramon MD [address] [facility] [address] [place] [address] Medical Oncologist/Recyclable Materials Distributor Hematology 07/12/20 documented as of this encounter
--- OUTSIDE RECORDS SUMMARY | 2024-05-18 22:15 | XMS_ITS | Encounter Summary ---
Author Organization [facility] Healthcare Address [address] [place] [address] Care Team Providers Care Electronic Sales And Service Technician Name Role Phone Tip Armenta MD Primary Care Provider [phone] Eleanor Ramon MD Unavailable [phone] Encounter Details Date Type Department Care Team (Late st Contact Info) Description 02/10/2021 8:25 AM CDT Lab [facility] [address] [place] [address] Preoperative testing; Cervical disc disorder with myelopathy of mid-cervical region Social History Tobacco Use Types Packs/Day [...] on file Legal Sex Male 1:20 AM LOGISTICS ADMINISTRATOR Gender Identity Not on file Sexual Orientation Not on file documented as of this encounter Plan of Treatment Upcoming Encounters Date Type Department Care Team (Late st Contact Info) Description 05/22/2024 10:45 AM LOGISTICS ADMINISTRATOR Hospital Encounter [facility] Endoscopy [address] [place] [address] Nikolay Boucher MD [address] [facility] [address] [place] [address] 05/22/2024 10:45 AM LOGISTICS ADMINISTRATOR - 05/22/2024 11:15 AM LOGISTICS ADMINISTRATOR Surgery [facility] Endoscopy [address] [address] Nikolay Boucher MD [address] [place] [address] EGD Scheduled Procedures Name Priority Associated Diagnoses Date/Ti me ESOPHAGOGASTRODUODENOSCOPY Crohn's disease of both small and large intestine with intestinal obstruction (HCC) 05/22/2024 10:45 AM LOGISTICS ADMINISTRATOR documented as of this encounter Procedures Procedure Name Priority Date/Time Associated Diagnosis Comments URINALYSIS AND REFLEX TO MICROSCOPIC AND CULTURE Routine 02/10/2021 8:39 AM CDT Cervical disc disorder with myelopathy of mid-cervical region TYPE AND SCREEN 14 DAY Routine 02/10/2021 8:30 AM CDT Preoperative testing EGFR Routine 02/10/2021 8:30 AM CDT Cervical disc disorder with myelopathy of mid-cervical region DIFFERENTIAL AUTO Routine 02/10/2021 8:3 0 AM CDT Cervical disc disorder with myelopathy of mid-cervical region CBC WITH AUTO DIFFERENTIAL Routine 02/10/2021 8:30 AM CDT Cervical disc disorder with myelopathy of mid-cervical region ABO/RH Routine 02/10/2021 8:30 AM CDT Preoperative testing VITAMIN D 25 HYDROXY Routine 02/10/2021 8:30 AM CDT Cervical disc disorder with myelopathy of mid-cervical region APTT Routine 02/10/2021 8:30 AM CDT Cervical disc disorder with myelopathy of mid-cervical region PROTIME-INR Routine 02/10/2021 8:30 AM CDT Cervical disc disorder with myelopathy of mid-cervical region ANTIBODY SCREEN Routine 02/10/2021 8:30 AM CDT Preoperative testing BASIC METABOLIC PANEL Routine 02/10/2021 8:30 AM CDT Cervical disc disorder with myelopathy of mid-cervical region documented in this encounter Results * Urinalysis reflex to microscopic and culture Urine, clean voided (02/10/2021 8:39 AM CDT) Color, ur Straw Yellow [facility] Clarity, ur Clear Clear [facility] Specific gravity, ur 1.025 1.010 - 1.025 [facility] pH, urine 5.5 [facility] Protein, ur ql Trace Negative [facility] Glucose, ur ql Negative Negative [facility] Ketones, ur Trace Negative [facility] Bilirubin, ur Negative Negative [facility] Blood, ur Negative Negative [facility] Urobilinogen, ur <2.0 <2.0 mg/dL [facility] Nitrite, ur Negative Negative [facility] Leukocyte esterase, ur Negative Negative [facility] UA reflex comment Reflex conditions for microscopic UA and culture not met. [facility] Urine, clean voided 02/10/2021 8:39 AM CDT 02/10/2021 8:40 AM CDT Narrative [facility] - 02/10/2021 8:45 AM CDT ?? Urine pH is affected by diet, medications, systemic acid-base disturbances, and renal tubular function. ??pH may affect urinary stone formation. ??For example, urine pH below 6.0 may help reduce the tendency for calcium phosphate stones and pH greater than 6.0 may reduce the tendency for uric acid stone formation. Source: Flexion. Last revised 06-06-2017 us Clifford Concepcion MD LAB MICROBIOLOGY - GENERAL REMEDIOS MCCURDY Final Result [facility] [address] [facility]. [place] [address] * eGFR (02/10/2021 8:30 AM CDT) eGFR 55 mL/min/1.7 3 m2 [facility]DA [facility] Comment: Interpretive Data Reference Interval Normal ?>/= 90 mL/min/1.73m2 Mildly decreased* ? 60 - 89 mL/min/1.73m2 Mildly to moderately decreased ?45 - 59 mL/min/1.73m2 Moderately to severely decreased ??30 - 44 mL/min/1.73m2 Severely decreased ?15 - 29 mL/min/1.73m2 Kidney Failure ?< 15 ??mL/min/1.73m2 *Relative to young adult level Estimated glomerular filtration rate is determined by the CKD-EPI equation recommended by the National Kidney Foundation (KDIGO 2012 Clinical Practice Guideline for the Evaluation and Management of Chronic Kidney Disease. Kidney Intnl Suppl May 2012;3:1). The CKD-EPI equation should not be used for patients with unstable renal function and has not been validated in children and those over 70. Current interpretive data was last reviewed 2020 Blood 02/10/2021 8:30 AM CDT 02/10/2021 8:40 AM CDT us Clifford Concepcion MD LAB BLOOD ORDERABLES Final Resu lt [facility] [address] [facility]. [place] [address] * (ABNORMAL) Differential, auto (02/10/2021 8:30 AM CDT) Neutrophil abs 5.5 1.7 - 6.5 K/cumm [facility]DA [facility] Imm gran abs 0.1 0.0 - 0.1 K/cumm [facility] Lymphocyte abs 1.7 0.8 - 3.3 K/cumm [facility] Monocyte abs 0.9(H) 0.2 - 0.8 K/cumm [facility] Eosinophil abs 0.3 0.0 - 0.5 K/cumm [facility] Basophil abs 0.1 0.0 - 0.1 K/cumm [facility] Neutrophil pct 64.3 % [facility] Comment: Interpretive Data Percent cell count reference ranges are not reported, since discordance with absolute values may lead to misinterpretation of CBC data. Current Interpretive Data was last revised on 2017. Imm gran pct 0.8 % [facility] Comment: Interpretive Data Percent cell count reference ranges are not reported, since discordance with absolute values may lead to misinterpretation of CBC data. Current Interpretive Data was last revised on 2017. Lymphocyte pct 19.8 % [facility] Comment: Interpretive Data Percent cell count reference ranges are not reported, since discordance with absolute values may lead to misinterpretation of CBC data. Current Interpretive Data was last revised on 2017. Monocyte pct 10.9 % [facility] Comment: Interpretive Data Percent cell count reference ranges are not reported, since discordance with absolute values may lead to misinterpretation of CBC data. Current Interpretive Data was last revised on 2017. Eosinophil pct 3.5 % [facility] Comment: Interpretive Data Percent cell count reference ranges are not reported, since discordance with absolute values may lead to misinterpretation of CBC data. Current Interpretive Data was last revised on 2017. Basophil pct 0.7 % [facility] Comment: Interpretive Data Percent cell count reference ranges are not reported, since discordance with absolute values may lead to misinterpretation of CBC data. Current Interpretive Data was last revised on 2017. Blood 02/10/2021 8:30 AM CDT 02/10/2021 8:40 AM CDT us Clifford Concepcion MD LAB BLOOD ORDERABLES Final Resu lt [facility] [address] [facility] [place] [address] * Antibody screen (02/10/2021 8:30 AM CDT) Hilary, indirect, Gel Interpretation Negative ABSC [facility]NAD [facility] Blood 02/10/2021 8:30 AM CDT 02/10/2021 8:40 AM CDT Narrative [facility]DA [facility] - 02/10/2021 9:44 AM CDT Is this test being ordered in advance for a procedure?->Yes Expected date of procedure:->02/16/21 Has the patient been transfused in the past 3 months?->No Lanie Garcia DIRECTOR OF PHYSICAL EDUCATION LAB BLOOD BANK TEST ORDKrupa MCCURDY Final Result Performing Organization Address [facility] Co de Phone Number AMANDA [facility] [address] [facility] [place] [address] * ABO/Rh (02/10/2021 8:30 AM CDT) Pathologist [facility] ABO/Rh O Positive AMANDA DONAH[facility] Blood 02/10/2021 8:30 AM CDT 02/10/2021 8:40 AM CDT Narrative AMANDA [facility] - 02/10/2021 9:44 AM CDT Is this test being ordered in advance for a procedure?->Yes Expected date of procedure:->02/16/21 Has the patient been transfused in the past 3 months?->No Lanie Garcia DIRECTOR OF PHYSICAL EDUCATION LAB BLOOD BANK TEST ORDKrupa MCCURDY Final Result Performing Organization Address [facility] Co de Phone Number [facility] [address] [facility] [email or web address] [place], [place] [id number] * (ABNORMAL) CBC with auto differential (02/10/2021 8:30 AM CDT) Pathologist [facility] WBC 8.5 3.8 - 9.9 K/cumm [facility] Hgb 13.7 13.0 - 17.5 g/dL [facility] Hct 44.7 38.9 - 50.3 % [facility] Plt 222 150 - 400 K/cumm [facility] MPV 8.8(L) 9.1 - 12.3 fL [facility] RBC 4.87 4.30 - 5.80 M/cumm [facility] MCV 91.8 81.3 - 96.4 fL [facility] MCH 28.1 27.1 - 33.3 pg [facility] MCHC 30.6(L) 32.3 - 35.7 g/dL [facility] RDW CV 13.6 11.1 - 14.9 % [facility] RDW SD 45.7 35.7 - 48.1 fL [facility] NRBC abs 0.00 0.00 - 0.01 K/cumm [facility] Blood 02/10/2021 8:30 AM CDT 02/10/2021 8:40 AM CDT Clifford Concepcion MD LAB BLOOD ORDERABLES Final Resu lt Performing Organization Address [facility] Co de Phone Number [facility] [address] [facility] [email or web address] [address] * (ABNORMAL) aPTT (02/10/2021 8:30 AM CDT) Pathologist [facility] aPTT 26(L) 27 - 37 sec [facility] Comment: Interpretive Data Heparin Therapeutic Range aPTT: ??60 - 100 seconds. Current interpretive data was last revised on 2014. Blood 02/10/2021 8:30 AM CDT 02/10/2021 8:40 AM CDT Clifford Concepcion MD LAB BLOOD ORDERABLES Final Resu lt Performing Organization Address [facility] Co de Phone Number [facility] [address] [facility] [address] [place], [place] [id number] * Protime-INR (02/10/2021 8:30 AM CDT) PT 13.3 11.5 - 14.0 sec [facility] INR 1.0 0.9 - 1.1 [facility] Comment: Interpretive data Oral anticoagulant therapeutic ranges: Venous thromboembolism prophylaxis or treatment: 2.0-3.0 CARDIOLOGY Standard range: 2.0-3.0 High-intensity range: 2.5-3.5 Refer to indication-specific guidelines for appropriate target ranges for prosthetic heart valve replacement. Current interpretive data was last revised on 2019. Blood 02/10/2021 8:30 AM CDT 02/10/2021 8:40 AM CDT Clifford Concepcion MD LAB BLOOD ORDERABLES Final Resu lt Performing Organization Address City/[facility]/ZIP Co de Phone Number [facility] [address] [facility] [email or web address] [address] * (ABNORMAL) Vitamin D 25 hydroxy (02/10/2021 8:30 AM CDT) [facility] Vitamin D 25-OH 24(L) 30 - 80 ng/mL [facility] Comment:Testing performed by : [facility], [address] [place]., [address] Blood 02/10/2021 8:30 AM CDT 02/10/2021 12:21 PM CDT Clifford Concepcion MD LAB BLOOD ORDERABLES Final Resu lt Performing Organization Address City/[facility]/ZIP Co de Phone Number [facility] [address] [employer] [facility] [email or web address] [address] * (ABNORMAL) Basic metabolic panel (02/10/2021 8:30 AM CDT) Pathologist [facility] Sodium 142 135 - 145 mmol/L [facility] Potassium, pl 4.3 3.3 - 4.9 mmol/L [facility] Chloride 105 97 - 110 mmol/L [facility] CO2 29 22 - 32 mmol/L [facility] Anion gap 8 2 - 15 mmol/L [facility] BUN 13 8 - 25 mg/dL [facility] Creatinine 1.42(H) 0.80 - 1.30 mg/dL [facility] Glucose 93 70 - 199 mg/dL [facility] Comment: Interpretive Data Fasting glucose >/= 126 [...] Current interpretive data was last revised 2017. Calcium 8.7 8.5 - 10.3 mg/dL [facility] Blood 02/10/2021 8:30 AM CDT 02/10/2021 8:40 AM CDT us Clifford Concepcion MD LAB BLOOD ORDERABLES Final Resu lt [facility] [address] [facility]. [place] [address] documented in this encounter Visit Diagnoses Diagnosis Preoperative testing Unspecified pre-operative examination Cervical disc disorder with myelopathy of mid-cervical region Crohn's disease of both small and large intestine with intestinal obstruction (HCC) documented in this encounter Care Teams Electronic Sales And Service Technician Relationship Specialty Start Date End Date Tip Armenta MD [address] [employer] [address] PCP - General Family Medicine 03/18/19 Eleanor Ramon MD [address] [place] [address] Medical Oncologist/Supervisor Carding Hematology 07/12/20 documented as of this encounter
--- OUTSIDE RECORDS SUMMARY | 2024-05-18 22:15 | XMS_ITS | Encounter Summary ---
Author Organization [facility] Address [address] [facility] [address] [place] [address] Phone Care Team Providers Care Explosive Ordnance Disposal Specialist Name Role Phone Tip Armenta MD Primary Care Provider [phone] Eleanor Ramon MD Unavailable [phone] Encounter Details Date Type Department Care Team (Late st Contact Info) Description 02/09/2021 Telephone [facility] [address] [facility] Medical Office Building [address] [place] [address] Christa Brenner NP [address] [place] [address] Social History Tobacco Use Types [...] on file Legal Sex Male 1:20 AM BLOOD BANK 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 PROFESSIONAL Gender Identity Not on file Sexual Orientation Not on file documented as of this encounter Miscellaneous Notes * Telephone Encounter - Christa Brenner RN - 02/09/2021 12:19 PM CDT Procedure Date: 02/16/21 Location: [][facility] [x][facility] [x]CPAP []TPAP []IPAP Prep for case entered [x] Yes [] No Mupirocin sent [x] Yes [] No Surgical scrub sent [] Yes [x] No On MD calendar [x] Yes [] No OR arrival time given to pt [x] Yes [] No Pt notified of CPAP and imaging dates times [] Yes [x] No Imaging needed prior to surgery: Pre-op Testing required[]N/A [x]MRI T spine. to schedule today []CT []Dexa []AUDIOGRAM Post op appointment timeframe requirements 2 week[x] 4 week [] 6 week [x] Other: Patient on anticoagulants []Yes [x]No []ASA []Prescribed anticoagulant Surgery Clearance needed: [x]NA or [] General(PCP) [] Cardiac:[] Other OR Consent/Surgery packet status: []In progress [x]Scanned by front loader residential driver Notes/Other: RN Education Follow up on authorization documented in this encounter Plan of Treatment Upcoming Encounters Date Type Department Care Team (Late st Contact Info) Description 05/22/2024 10:45 AM [facility] Hospital Encounter [facility] Endoscopy [address] [place] [address] Nikolay Boucher MD [address] [place], [place] [id number] 05/22/2024 10:45 AM [facility] - 05/22/2024 11:15 AM [facility] Surgery [facility] [address] A[address] [id number] Nikolay Boucher MD [address] [place] [address] EGD Scheduled Procedures Name Priority Associated Diagnoses Date/Ti me ESOPHAGOGASTRODUODENOSCOPY Crohn's disease of both small and large intestine with intestinal obstruction (HCC) 05/22/2024 10:45 AM BLOOD BANK LABORATORY PROFESSIONAL documented as of this encounter Visit Diagnoses Not on filedocumented in this encounter Care Teams Explosive Ordnance Disposal Specialist Relationship Specialty Start Date End Date Tip Armenta MD [address] [address] PCP - General Family Medicine 03/18/19 Eleanor Ramon MD [facility] [address] [facility] [address] [place] [address] Medical Oncologist/Electric Arc Furnace Operator Hematology 07/12/20 documented as of this encounter
--- OUTSIDE RECORDS SUMMARY | 2024-05-18 22:15 | XMS_ITS | Encounter Summary ---
Author Organization [facility] Address [address] [place] [address] Phone Care Team Providers Care Specialty Trimmer Name Role Phone Tip Armenta MD Primary Care Provider [phone] Eleanor Ramon MD Unavailable [phone] Encounter Details Date Type Department Care Team (Late st Contact Info) Description 03/30/2021 10:45 AM CDT Office Visit [facility] Neurosurgery [address] [facility] Medical Office Building [address] [place] [address] Michael Viveros PA [address] [place] [address] Status post cervical disc replacement [...] file Legal 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 Gender Identity Not on file Sexual Orientation Not on file documented as of this encounter Last Filed Vital Signs Vital Sign Reading Time Taken Comments Blood Pressure 182/100 03/30/2021 10:30 AM CDT WITH OUT HIS MEDICATION- TOOK MEDS @ 10:15 am Pulse 84 03/30/2021 10:30 AM CDT Temperature - - Respiratory Rate - - Oxygen Saturation - - Inhaled Oxygen Concentration - - Weight 98.4 kg (217 lb) 03/30/2021 10:3 0 AM CDT Height 185.4 cm (6' 1 ) 03/30/2021 10:3 0 AM CDT Body Mass Index 28.63 03/30/2021 10:30 AM CDT documented in this encounter Progress Notes * Michael Viveros PA - 03/30/2021 10:45 AM CDT RETURN VISIT Subjective HISTORY OF PRESENT ILLNESS 55-year-old male returns to the office status post a C6-7 disc arthroplasty. This was performed fora large C6-7 left paracentral disc protrusion causing radiculopathy and myelopathy type complaints.He had noted preoperative gait disturbance that has significantly improved since surgery. He deniesany significant issues such as numbness or tingling bowel bladder changes or fevers or chills. Denies any swallowing difficulties. VITAL SIGNS BP (!) 182/100 Comment: WITH OUT HIS MEDICATION- TOOK MEDS @ 10:15 am Pulse 84 Ht 185.4 cm (6' 1 ) Wt 98.4 kg (217 lb) BMI 28.63 kg/m?? ALLERGIES He is allergic to latex. [...] months for med refills, labs due in 03/2021., Disp: 2 each, Rfl: 2 ??? ALPRAZolam [...] Disp: , Rfl: 5 ??? vit A-vit [id number] (ZINC WITH VITAMINS A AND C) 15 mg lozenge, Take 1 tablet by mouth asneeded , Disp: , Rfl: ??? zolpidem (AMBIEN) 10 mg tablet, Take 10 mg by mouth nightly as needed , Disp: , Rfl: 5 Objective PHYSICAL EXAM Awake, alert, orientedx3 Bilateral upper extremity strength grossly 5/5, full and symmetric throughout including bilateral deltoids, biceps, triceps, wrist extension, wrist flexion. ??Hand decorative greens cutter is 5/5 but intrinsics are 4 to4+ out of 5. ?? Negative Chavez's Incision is healing nicely. He was asked to ambulate he is able to keep his balance very well. He is not using his previously used cane to assist in ambulation. REVIEW OF IMAGING XR SPINE CERVICAL 2 OR 3 VIEWS HISTORY: Cervical disc herniation. FINDINGS: 3 views of the cervical spine are obtained and compared with 02/09/2021. There is interval C6-7 discectomy and disc arthroplasty. Instrumentation is intact. Alignment is normal. Vertebral body heights are preserved. There is anterior soft tissue swelling and gas. An overlying drain is present. IMPRESSION: New C6-7 disc arthroplasty in expected position. Assessment/Plan Status post C6-7 disc arthroplasty 02/21/2021 PLAN 55-year-old male returns the office status post a C6-7 disc arthroplasty on 02/21/2021. This was performed for a large left paracentral disc protrusion causing myelopathy. He denies any radicular-type complaints of numbness or tingling or fevers or chills. He denies any bowel bladder changes. He has noted a significant improvement of his gait as well as fine motor skills with his hands. The patient is very pleased. He expressed his happiness on improvement post surgical. The patient was also examined with Dr. de los santos. The his images reviewed showing satisfactory postsurgical changesnoted at C6-7. We plan to have him return the office in approximately 6 weeks from today's date to repeat his x- rays. He may return to work at full duty on 04/03/2021. 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 Endoscopy [address] [place] [address] Nikolay Boucher MD [address] [facility] [place] [address] 05/22/2024 10:45 AM CLINICAL RESEARCH SCIENTIST - 05/22/2024 11:15 AM CLINICAL RESEARCH SCIENTIST Surgery [facility] Endoscopy [address] [address] Nikolay Boucher MD [address] [place] [address] EGD Scheduled Procedures Name Priority Associated Diagnoses Date/Ti tx ESOPHAGOGASTRODUODENOSCOPY Crohn's disease of both small and large intestine with intestinal obstruction (HCC) 05/22/2024 10:45 AM CLINICAL RESEARCH SCIENTIST documented as of this encounter Visit Diagnoses Diagnosis Status post cervical disc replacement- Primary Crohn's disease of both small and large intestine with intestinal obstruction (HCC) documented in this encounter Historical Medications * This list may reflect changes made after this encounter. acetaminophen-cod eine (TYLENOL with CODEINE #3) 300-30 mg per tablet TAKE 1 TABLET BY MOUTH EVERY 4 HOURS NEEDED FOR PAIN 03/06/2021 meloxicam (MOBIC) 15 mg tablet 03/11/2021 07/12/2021 added in this encounter Care Teams Specialty Trimmer Relationship Specialty Start Date End Date Tip Armenta MD [address] [address] PCP - General Family Medicine 03/18/19 Eleanor Ramon MD [address] [place] [address] Medical Oncologist/Pharmacist Intern Hematology 07/12/20 documented as of this encounter
--- OUTSIDE RECORDS SUMMARY | 2024-05-18 22:15 | XMS_ITS | Encounter Summary ---
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 Gender Identity Not on file Sexual Orientation Not on file documented as of this encounter Plan of Treatment Upcoming Encounters Date Type Department Care Team (Late Contact Info) Description 05/22/2024 10:45 AM SAND CARRIER Hospital Encounter [facility] [id number] [place] [id number] Nikolay Boucher MD [address] [facility] [address] [place] [address] 05/22/2024 10:45 AM SAND CARRIER - 05/22/2024 11:15 AM SAND CARRIER Surgery [facility] [id number] [address] Nikolay Boucher MD [address] [place] [address] EGD Scheduled Procedures Name Priority Associated Diagnoses Date/Ti me ESOPHAGOGASTRODUODENOSCOPY Crohn's disease of both small and large intestine with intestinal obstruction (HCC) 05/22/2024 10:45 AM SAND CARRIER documented as of this encounter Procedures Procedure Name Priority Date/Time Associated Diagnosis Comments COVID-19 CORONAVIRUS RNA Routine 02/12/2021 9:03 AM CDT Pre-operative laboratory examination documented in this encounter Results * COVID-19 Coronavirus RNA Nasopharyngeal (02/12/2021 9:03 AM CDT) COVID-19 RNA Not Detected [facility] Comment: Interpretive Data Synonyms for this test include: PCR and NAAT . ??Testing performed by the [facility] Molecular Infectious Disease Laboratory. The 2019-Novel Coronavirus Assay (COVID-19) Real Time RT-PCR assay is for in vitro diagnostic use under FDA emergency use authorization only. A negative RT-PCR result does not preclude infection with COVID-19 and should not be used as the sole basis for treatment or other patient management decisions. ??Additional sample types have been validated according to CLIA regulations. ?? Current Interpretive Data was last revised on June 30, 2020. First COVID-19 test? Unknown [facility] Employeed in healthcare? Unknown [facility] status? No [facility] Group care resident? No [facility] Hospitalized? Unknown [facility] Is patient in ICU? Unknown [facility] Symptomatic as defined by CDC? No [facility] Nasopharyngeal 02/12/2021 9: 03 AM CDT 02/12/2021 12:38 PM CDT Narrative [facility] - 02/12/2021 7:21 PM CDT What is the reason for testing?->Screening prior to scheduled procedure or surgery (batch) Clifford Concepcion MD LAB MICROBIOLOGY - [facility] Final Result [facility] Department [place] [address] documented in this encounter Visit Diagnoses Diagnosis Pre-operative laboratory examination Pre-procedural laboratory examination Crohn's disease of both small and large intestine with intestinal obstruction (HCC) documented in this encounter Care Teams Funeral Arrangement Director Relationship Specialty Start Date End Date Tip Armetna MD [address] [address] PCP - General Family Medicine 03/18/19 Eleanor Ramon MD [address] [facility] [address] [place] [address] Medical Oncologist/Medical Malpractice Paralegal Hematology 07/12/20 documented as of this encounter
--- OUTSIDE RECORDS SUMMARY | 2024-05-18 22:15 | XMS_ITS | Encounter Summary ---
Author Organization [facility] Healthcare Address [address] [place] [address] Care Team Providers Care Advertising Production Manager Name Role Phone Tip Armenta MD Primary Care Provider [phone] Eleanor Ramon MD Unavailable [phone] Encounter Details Date Type Department Care Team (Late st Contact Info) Description 02/16/2021 3:07 PM CDT Anesthesia Event [facility] Operating Room [address] [place] [address] James Suh MD [address] [place] [address] Sheila Park MD [address] [place] [address] Anesthesia Record Procedure Summary Procedure Name Responsible Anesthesiologist Anesthesia Start Time Anesthesia Stop Time CERVICAL ARTHROPLASTY C6-C7 disc arthroplasty (Spine Cervical) James Suh MD 02/16/21 1507 02/16/21 1735 Events Date Time Event Comment 02/16/2021 1221 In Preop 1236 1319 AN Equip Check 1507 An Start 1507 Quick Note Discussed neuro monitoring needs and full TIVA requested without muscle relaxation 1512 An Start Data 1513 In Room 1520 An Induction The patient was reevaluated immediately before moderate or deep sedation use and before anesthesia induction. 1525 An Intubation 1533 Anesthesia Ready 1557 Proc Start 1557 Incision Start 1706 Proc Fin 1720 An Extubation 1724 an stop data 1725 Out of Room 1733 Handoff to RN I completed my handoff [...] disposition at the time of handoff: PACU 1735 An Stop Meds Name Total midazolam 2 mg/2 mL 2 mg fentaNYL PF 200 mcg Lidocaine IV 1% PF 20 mg propofol 300 mg propofol 869.31 mg succinylcholine syringe 100 mg/5 mL 100 mg phenylephrine syringe 100 mcg/mL 100 mcg ondansetron PF 4 mg ceFAZolin (ANCEF) 1 gram/10 mL in steril e water (premix) 2,000 mg 2,000 mg vancomycin 1500 mg/250 mL in sodium chlo ride 0.9% (premix) 1,500 mg 0 mg dexmedeTOMIDine infusion 30.1 mcg LR 800 mL Lactated Ringer's (LR) infusion 0 mL * Agents Name O2 N2O Air Sevoflurane Inspired Sevoflurane * Blood No blood administrations on file. Lines, Drains, and Airways Type Details Placement Removal Peripheral IV Placement Date: 11/14; Placement Time: 0646; Catheter Size: 20 G; Orientation: Right; Location: Hand; Site Prep: Chlorhexidine; Insertion Attempts: 1; Patient Tolerance: Tolerated well; Removal Date: 01/20/22; Removal Time: 0203; Removal Reason: Not present on admission 12/30/20 0646 by Rosa Amin RN 01/20/22 0203 by Rylie Hurtado RN Closed/Suction/Open Drain 02/16/21; No; 1; Right, Anterior; Neck; Bulb; 10 Fr.; 1; Not present on admission 02/16/21 0000 by Carolina Dixon RN 01/26/22 1041 by Solange Becerra RN Peripheral IV Placement Date: 01/26 08/14; Placement Time: 1346; Catheter Size: 20 G; Orientation: Right; Location: Antecubital; Site Prep: Chlorhexidine; Insertion Attempts: 2; Removal Date: 02/17/21; Removal Time: 1023; Removal Reason: Discharge 02/16/21 1346 by Yuliya Walker RN 02/17/21 1023 by Arlene Watson, GUEVARA ETT Placement Date: 01/26 08/14; Placement Time: 1525 (created via procedure documentation); Mask Ventilation: 2; Technique: Video laryngoscopy; Type: Reinforced tube; Single Lumen Tube Size: 7.5 mm; Cuffed: Yes; Laryngoscope: Mikal; Blade Size: 4; Location: Oral; Grade View: (not attempted); Insertion Attempts: 2; Placement Verification: Auscultation, Capnometry; Airway Comment: RSI with sux due to neuromonitoring requirements for no paralytics. Video laryngoscopy #1 by JACINTO--view high on screen and oxygen sats falling quickly. Video blade removed and mask vent with OPA easy. Dr Suh called. Intubated by Dr Suh without difficulty with glidescope.; Removal Date: 02/16/21; Removal Time: 1720 02/16/21 1525 by Sherry Castillo CRNA 02/16/21 1720 by Sherry Castillo CRNA Peripheral IV Placement Date: 01/26 08/14; Placement Time: 1531; Catheter Size: 20 G; Orientation: Left; Location: Hand; Site Prep: Chlorhexidine; Technique: Anatomical landmarks; Inserted by: Latrice Castillo CRNA; Removal Date: 02/17/21; Removal Time: 1023; Removal Reason: Discharge 02/16/21 1531 by Sherry Castillo CRNA 02/17/21 1023 by Arlene Watson, GUEVARA RETIRED Surgical Site 02/16/21; 1531; Ri ght; Neck; 09/28/22; 0650; Not present on admission 02/16/21 1531 by Valery Soto RN 09/28/22 0650 by Rosa Amin, GUEVARA documented in this encounter Social History Tobacco Use Types Packs/Day Years Used Date Smoking Tobacco: Never Smokeless Tobacco: Never AUDIT-C Answer Date Recorded Q1: How often do you have a drink containing alc ohol? 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 Gender Identity Not on file Sexual Orientation Not on file documented as of this encounter OR Notes * Anesthesia Postprocedure Evaluation - James Suh MD - 02/16/2021 5:46 PM CDT Patient: Mello Herbert Procedure Summary Date: 02/16/21 Room / Location: [facility] OPERATING ROOM 08 / [facility] OPERATING ROOM Anesthesia Start: 1507 Anesthesia Stop: 1735 Procedures: CERVICAL ARTHROPLASTY C6-C7 disc arthroplasty (N/A Spine Cervical) SPINAL CORD MONITORING (N/A ) Diagnosis: Cervical disc disorder with myelopathy of mid-cervical region (Cervical disc disorder with myelopathy of mid-cervical region [M50.020]) Surgeons: Clifford Concepcion MD Responsible Provider: James Suh MD Anesthesia Type: general ASA Status: 3 Anesthesia Type: general Last vitals BP 146/80 Pulse 94 Temp 37 ??C (98.6 ??F) Resp 13 SpO2 98% Anesthesia Post Evaluation Patient location during evaluation: PACU Patient participation: complete - patient participated Level of consciousness: fully awake Pain score: 4 Pain management: adequate Airway patency: adequate and patent Evidence of recall: no Cardiovascular status: hemodynamically stable and acceptable Respiratory status: acceptable and nasal cannula Hydration status: euvolemic Pt is: normothermic Nausea/Vomiting status: none No complications documented. * Anesthesia Procedure Notes - Sherry Castillo CRNA - 02/16/2021 4:02 PM CDTAssociated Order(s): Airway Airway Patient location: OR Urgency: elective Date/time: 02/16/2021 3:25 PM Indications for airway management: anesthesia Difficult airway: no Staff: Placed by: Anesthesiologist: James Suh MD Airway prep: Preoxygenated: yes Patient position: sniffing Mask difficulty assessment: 2 - vent by mask + OA or adjuvant Spontaneous ventilation during airway: absent Sedation level during airway: GA Final airway details: Final airway type: endotracheal airway Tube type: reinforced tube ETT size: 7.5 mm Cuffed: yes Technique used for successful ETT placement: video laryngoscopy Devices/Methods used in placement: intubating stylet Insertion site: oral Blade type: Mikal Video blade type: Glidescope Blade size: 4 Cormack & Lehane grading: not attempted. Cormack-Lehane (video): grade I - full view of glottis (anterior-high on video screen) Cuff volume: 8 mL Cuff inflated with: air ETT to teeth: 24 cm Placement verified by: auscultation and CO2 detection Airway secured with: silk tape Number of attempts: 2 Ventilation between attempts: BVM Additional comments: RSI with sux due to neuromonitoring requirements for no paralytics. Video laryngoscopy #1 by JACINTO--view high on screen and oxygen sats falling quickly. Video blade removed and mask vent with OPA easy. Dr Suh called. Intubated by Dr Suh without difficulty with glidescope. * Anesthesia Preprocedure Evaluation - Francois Anthony MD - 02/10/2021 7:31 AM CDT Images from the original note were not included. [facility] for Preoperative Assessment and Planning Preoperative Evaluation Record Evaluation type/location: [facility] Planned procedure site: [facility] OR Date: 02/10/21 Anesthesia Evaluation Mello Herbert is a 55 y.o. male Procedure(s): CERVICAL ARTHROPLASTY C6-C7 disc arthroplasty SPINAL CORD MONITORING Pre-Op Diagnosis Codes: * Cervical disc disorder with myelopathy of mid-cervical region [M50.020] HISTORY HPI Mello Herbert is a 55 y.o. male who is being evaluated prior to undergoing CERVICAL ARTHROPLASTY C6-C7 disc arthroplasty, SPINAL CORD MONITORING for cervical myelopathy. Past Medical History Information obtained from: patient and chart. Neurological + Psychiatric history - anxiety and depression Pertinent negatives: seizures; neuromuscular disease; CVA/stroke; TIA; CEA; ICA stenosis; dementia/mild cognitive impairment and carotid artery stent Cardiovascular + Hypertension Pertinent negatives: CAD ; MA ; CABG ; valvular heart disease; valve replacement; atrial fibrillation; arrhythmia; pacemaker/ICD; PVD; DVT/PE; negative for CHF; drug-eluting stent(s); bare metal stent(s) and coronary angioplasty Respiratory Pertinent negatives: non-smoker Respiratory system: negative Hepatic / Heme + History of anemia (2/2 Crohn's dx) - iron deficiency Pertinent negatives: liver disease; history of thrombocytopenia and history of Hilary positive Gastrointestinal + GERD - on daily therapy. Asymptomatic. Pertinent negatives: hiatal hernia Renal / Renal/ system: negative Musculoskeletal/Pain Pertinent negatives: chronic pain Musculoskeletal/Pain system: negative Endocrine / Other + Rheumatological disease - Crohn's disease. Pertinent negatives: diabetes mellitus; thyroid disease; obesity (BMI >30); cancer history; transplanted organ and infectious disease Functional Capacity Functional capacity: 4-6 METs Comments: Can walk 2 blocks, climb 2 flights of stairs w/o CP or SOB. Review of Systems + diarrhea (2/2 Crohn's) + abdominal pain (2/2 Crohn's) Pertinent negatives: productive cough; wheezing; SOB; recent cold/flu; fever; chest pain; palpitations; orthopnea; pedal edema; PND; Sickle Cell disease/trait; previous transfusion; transfusion reaction; melena/hematochezia; easy bruising; bleeding problems; syncope; dizziness; muscle weakness; chronic pain; numbness/tingling; hard of hearing; vision loss; heartburn; nausea; dysphagia; dentures/partials; chipped/loose teeth; diaphoresis and no unexpected weight change PAT Summary and Plans Cardiac risk classification of planned procedure: intermediate cardiac risk. Preoperative assessment status: lab tests ordered. Additional comments: Mello Herbert is a 55 y.o. male who is being evaluated prior to undergoing anintermediate cardiac risk surgery. Revised Cardiac Risk Index factors are (none) for a total RCRI of 0 out of 6. Functional capacity is 4-6 METs. + Intubation considerations - severe pain & neurologic shocks with extension. Obstructive sleep apnea (DEONTE) screening status is STOP-Bang=4 suggesting moderate risk for DEONTE, bicarbonate value pending. The patient is at elevated risk for obstructive sleep apnea (DEONTE) per STOP-BANG screening questionnaire results. Patient informed of the possibility that they have undiagnosed DEONTE, which may increasetheir risk for perioperative respiratory events. Patient also informed of the possible long-term health problems associated with DEONTE. Because we do not feel that preoperative DEONTE testing is likely tooutweigh the downsides of delaying surgery, we have recommended that the patient talk to their primary doctor or other clinician after surgery about getting tested for DEONTE. Blood bank needs for day of procedure: Type and Screen only Pending labs/tests include: CBC BMP T&S PT PTT Urinalysis flex Vit D Patient's COVID19 status is: Unexposed. The patient currently has no concerning symptoms of COVID19. Patient's COVID-19 vaccination status is Not vaccinated. Plan for pre-procedure COVID19 testing: Surgery date greater than 4 days from today. Request placed for pre-procedure COVID19 testing to be performed on 02/12, [place]. [facility] ([place] will place the order for testing. Result to be reviewed by surgeon's office. Preoperative evaluation performed by Lanie Lott NP on 02/10/21 at 7:33 AM. . Follow up note Labs reviewed and are significant for a total CO2 of 29 . With a STOP-Bang score of 3-4, this qualifies the patient as high risk for severe DEONTE. DEONTE order set initiated. CPAP assessment complete. Follow-up completed by: Emely Sandoval NP on 02/13/21 at 9:41 AM Patient Active Problem List Diagnosis ??? Iron deficiency anemia due to chronic blood loss ??? Erythrocytosis ??? Crohn's disease of both small and large intestine (HCC) ??? Vitamin B12 deficiency ??? Chronic diarrhea ??? High risk medications (not anticoagulants) long-term use ??? Cervical disc disorder with myelopathy of mid-cervical region Past Medical History: Diagnosis Date ??? Anemia ??? Anxiety and depression ??? Crohn's colitis (CMS/HCC) (HCC) ??? GERD (gastroesophageal reflux disease) ??? Hypertension Past Surgical History: Procedure Laterality Date ??? SMALL BOWEL RESECTION Allergies Allergen Reactions ??? Latex Rash Med List Status: Nurse Complete Set By: Suzanne Dowell RN at 02/10/2021 7:54 AM Taking? Last Dose Start Date End Date Provider acetaminophen-codeine (TYLENOL with CODEINE #3) 300-30 mg per tablet 02/09/18 -- Shaun Chavarria MD adalimumab (Humira,CF, Pen) 40 mg/0.4 mL pen injector kit 12/30/20 -- Roxanna Valenzuela MD Inject 0.4 mL (40 mg total) under the skin every 14 (fourteen) days Safety labs required every 3 months for med refills, labs due in 03/2021. Notes: Only authorizing 30 day fill as pt is overdue for repeat safety labs. Thanks! ALPRAZolam (XANAX) 1 mg tablet 11/21/17 -- Shaun Chavarria MD amitriptyline (ELAVIL) 10 mg tablet 02/06/21 -- Shaun Chavarria MD amLODIPine (NORVASC) 5 mg tablet 01/31/21 -- Shaun Chavarria MD BD SAFETYGLIDE SYRINGE 3 mL 23 x 1 syringe 11/26/18 -- Shaun Chavarria MD CIALIS 20 mg tablet 11/26/17 -- ProviderShaun MD cyanocobalamin (Vitamin B-12) 1,000 mcg/mL injection 12/10/17 -- Shaun Chavarria MD diphenoxylate-atropine (LOMOTIL) 2.5-0.025 mg per tablet 06/19/18 -- Shaun Chavarria MD Notes: Uses daily folic acid (FOLVITE) 1 mg tablet 10/25/17 -- Shaun Chavarria MD hydroCHLOROthiazide (HYDRODIURIL) 25 mg tablet -- -- Shaun Chavarria MD hyoscyamine (LEVSIN) 0.125 mg tablet 07/18/20 -- Roxanna Valenzuela MD Take 1 tab PO every 6 hours as needed for spasms Patient taking differently: 0.125 mg every 4 (four) hours as needed Take 1 tab PO every 6 hours as needed for spasms irbesartan (AVAPRO) 300 mg tablet 01/30/21 -- Shaun Chavarria MD lansoprazole (PREVACID) 15 mg capsule 10/12/16 -- Shaun Chavarria MD magnesium oxide,aspartate,citr (TRIPLE MAGNESIUM COMPLEX) 400 mg capsule 10/12/16 -- Shaun Chavarria MD meloxicam (MOBIC) 15 mg tablet 01/20/21 -- Shaun Chavarria MD montelukast (SINGULAIR) 10 mg tablet 07/10/18 -- Shaun Chavarria MD mupirocin (BACTROBAN) 2 % ointment 11/07/20 -- Shaun Chavarria MD nystatin 100,000 unit/mL suspension 03/28/20 -- Roxanna Valenzuela MD Take 5 ml PO 2 times daily,swish and swallow for 14 days Patient taking differently: 500,000 Units as needed Take 5 ml PO 2 times daily,swish and swallow for 14 days ondansetron (ZOFRAN) 8 mg tablet 12/01/17 -- Shaun Chavarria MD sulfamethoxazole-trimethoprim (BACTRIM DS) 800-160 mg per tablet 01/07/21 -- Shaun Chavarria MD testosterone cypionate (DEPO-TESTOTERONE) 200 mg/mL injection 11/29/17 -- ProviderShaun MD vit A-vit S-knsd-qwtyhezy (ZINC WITH VITAMINS A AND C) 15 mg lozenge 10/12/16 -- Shaun Chavarria MD zolpidem (AMBIEN) 10 mg tablet 12/13/17 -- Shaun Chavarria MD Current Outpatient Medications: ??? acetaminophen-codeine (TYLENOL with [...] folic acid (FOLVITE) 1 mg tablet ??? hydroCHLOROthiazide (HYDRODIURIL) 25 mg tablet ??? hyoscyamine (LEVSIN) 0.125 mg tablet ??? irbesartan (AVAPRO) 300 mg tablet ??? lansoprazole (PREVACID) 15 mg capsule ??? magnesium oxide,aspartate,citr (TRIPLE MAGNESIUM COMPLEX) 400 mg capsule ??? meloxicam (MOBIC) 15 mg tablet ??? montelukast (SINGULAIR) 10 mg tablet ??? mupirocin (BACTROBAN) 2 % ointment ??? nystatin 100,000 unit/mL suspension ??? ondansetron (ZOFRAN) 8 mg tablet ??? sulfamethoxazole-trimethoprim (BACTRIM DS) 800-160 mg per tablet ??? testosterone cypionate (DEPO-TESTOTERONE) 200 mg/mL injection ??? vit A-vit N-oswx-covpcgtl (ZINC WITH VITAMINS A AND C) 15 mg lozenge ??? zolpidem (AMBIEN) 10 mg tablet Social History Tobacco Use Smoking Status Never Smoker Smokeless Tobacco Never Used Substance and Sexual Activity Alcohol Use Not on file Substance and Sexual Activity Drug Use Never Family History Problem Relation Age of Onset ??? No Known Problems Mother ??? No Known Problems Father PAT Physical Exam Airway Exam: Mallampati: III Cervical ROM: limited extension TM distance: 3.5 Jaw ROM: full (Limited extension 2/2 pain & shocks from cervical stenosis) Cardiovascular Exam: Rate: regular Rhythm: regular Negative for Murmur No extra heart sounds appreciated Peripheral edema: trace edema Pulmonary Exam: LCTA, bilat EENT Exam: trachea midline Dental Exam: Appears intact Skin Exam: Skin is warm. Turgor is normal. Abdominal exam: Abdomen is soft. Bowel sounds are present. Current state: Patient's current state is cooperative and interactive. Vitals: 02/10/21 0755 02/10/21 0801 BP: 152/82 157/95 Pulse: 79 SpO2: 97% Relevant diagnostics: ECG(s): 12/17/2020: 78 bpm, NSR Echocardiogram(s): N/A Stress test(s): N/A Cardiac catheterization(s): N/A PFT(s): N/A Vascular studies: N/A Other: N/A PT: No results found for requested labs within last 720 hours. INR: No results found for requested labs within last 720 hours. APTT: No results found for requested labs within last 720 hours. Hgb A1C: No results found for requested labs within last 720 hours. CBC RBC: No results found for requested labs within last 720 hours. RDW: No results found for requested labs within last 720 hours. MCHC: No results found for requested labs within last 720 hours. MCH: No results found for requested labs within last 720 hours. MCV: No results found for requested labs within last 720 hours. Hct: No results found for requested labs within last 720 hours. Hgb: No results found for requested labs within last 720 hours. WBC: No results found for requested labs within last 720 hours. MPV: No results found for requested labs within last 720 hours. Platelets: No results found for requested labs within last 720 hours. RDW CV: No results found for requested labs within last 720 hours. RDW Sd: No results found for requested labs within last 720 hours. BMP Glucose: No results found for requested labs within last 720 hours. Calcium: No results found for requested labs within last 720 hours. Sodium: No results found for requested labs within last 720 hours. Potassium: No results found for requested labs within last 720 hours. CO2: No results found for requested labs within last 720 hours. Chloride: No results found for requested labs within last 720 hours. BUN: No results found for requested labs within last 720 hours. Creatinine: No results found for requested labs within last 720 hours. STOP-Bang Total Score: 4 Jun index score: 100 DOS Physical Exam Medical history, medications, and allergies reviewed. Attestation: This PAT evaluation Airway Exam: Mallampati: III Cervical ROM: FROM Cardiovascular Exam: Rate: regular Rhythm: regular Pulmonary Exam: LCTA, bilat Anesthesia Plan ASA 3 My patient is approved for the Anesthesia Controlled Medication protocol when under care of a EDUCATIONAL RECRUITER Planned anesthesia: General Informed Consent: Anesthesia plan [...] All questions answered. documented in this encounter Miscellaneous Notes * Addendum Note - Emely Sandoval NP - 02/13/2021 9:43 AM CDT Addendum created 02/13/21942 by Emely Sandoval NP Clinical Note Signed, Order list changed, Order sets accessed documented in this encounter Plan of Treatment Upcoming Encounters Date Type Department Care Team (Late st Contact Info) Description 05/22/2024 10:45 AM YARDER ENGINEER Hospital Encounter [facility] Endoscopy [address] [place] [address] Nikolay Boucher MD [address] [place] [address] 05/22/2024 10:45 AM YARDER ENGINEER - 05/22/2024 11:15 AM YARDER ENGINEER Surgery [facility] Endoscopy [address] [place] [address] Nikolay Boucher MD [address] [place] [address] EGD Scheduled Procedures Name Priority Associated Diagnoses Date/Ti me ESOPHAGOGASTRODUODENOSCOPY Crohn's disease of both small and large intestine with intestinal obstruction (HCC) 05/22/2024 10:45 AM YARDER ENGINEER documented as of this encounter Procedures Procedure Name Priority Date/Time Associated Diagnosis Comments RI AN PROCEDURE PLACEHOLDER Routine 02/16/2021 3:25 PM CDT RI AN ELECTIVE ENDOTRACHEAL AIRWAY Routine 02/16/2021 3:25 PM CDT documented in this encounter Results * RI AN ELECTIVE ENDOTRACHEAL AIRWAY, RI AN PROCEDURE PLACEHOLDER (02/16/2021 3:25 PM CDT) Narrative Sherry Castillo CRNA - 02/16/2021 3:25 PM CDT Sherry Castillo CRNA ? 02/16/2021 ??4:05 PM Airway Patient location: OR Urgency: elective Date/time: 02/16/2021 3:25 PM Indications for airway management: anesthesia Difficult airway: no Staff: Placed by: Anesthesiologist: James Suh MD Airway prep: Preoxygenated: yes Patient position: sniffing Mask difficulty assessment: 2 - vent by mask + OA or adjuvant Spontaneous ventilation during airway: absent Sedation level during airway: GA Final airway details: Final airway type: endotracheal airway Tube type: reinforced tube ETT size: 7.5 mm Cuffed: yes Technique used for successful ETT placement: video laryngoscopy Devices/Methods used in placement: intubating stylet Insertion site: oral Blade type: Mikal Video blade type: Glidescope Blade size: 4 Cormack & Lehane grading: not attempted. Cormack-Lehane (video): grade I - full view of glottis (anterior-high on video screen) Cuff volume: 8 mL Cuff inflated with: air ETT to teeth: 24 cm Placement verified by: auscultation and CO2 detection Airway secured with: silk tape Number of attempts: 2 Ventilation between attempts: BVM Additional comments: RSI with sux due to neuromonitoring requirements for no paralytics. Video laryngoscopy #1 by JACINTO--view high on screen and oxygen sats falling quickly. Video blade removed and mask vent with OPA easy. Dr Suh called. Intubated by Dr Suh without difficulty with glidescope. us James Suh MD ANESTHESIA ORDERABLES Fi nal Result documented in this encounter Visit Diagnoses Not on filedocumented in this encounter Administered Medications Inactive Administered Medications - up to 3 most recent administrations Medication Order MAR Action Action Date Dose Rate Site ceFAZolin (ANCEF) 1 gram/10 mL in sterile water (premix) 2,000 mg 2,000 mg, intravenous, at 400 mL/hr, Administer over 3 Minutes, Once, On Sana 02/16/21 at 1315, For 1 dose, Pre-Op, Administer within 60 minutes of incision., Indications: Prophylaxis, SurgicalIndications:P rophylaxis, Surgical Given 02/16/2021 3:40 PM CDT 2,000 mg dexmedeTOMIDine in 0.9% sodium chloride (PRECEDEX) 400 mcg/100 mL (4 mcg/mL) infusion (premix) intravenous, Continuous PRN, Starting on Sana 02/16/21 at 1529, Anesthesia Intra-op Rate/Dose Change 02/16/2021 4:42 PM CDT 0.4 mcg/kg/hr 7.99 mL/hr Restarted 02/16/2021 4:06 PM CDT 0.3 mcg/kg/hr 5.993 mL/h r New Bag 02/16/2021 3:29 PM CDT 0.3 mcg/kg/hr 5.993 mL/h r fentaNYL (SUBLIMAZE) preservative free injection intravenous, As needed, Starting on Sana 02/16/21 at 1519, Anesthesia Intra-op Given 02/16/2021 4:05 PM CDT 50 mcg Given 02/16/2021 3:19 PM CDT 150 mcg Lactated Ringer's (LR) infusion 30 mL/hr, intravenous, Continuous, Starting on Sana 02/16/21 at 1315, For 4 hours, Pre-Op, Use a 500 ml bag for End Stage Renal Disease Patients. Discontinue if fluid still running once patient arrives to floor. Rate/Dose Change 02/16/2021 5:23 PM CDT 800 mL/hr Rate/Dose Verify 02/16/2021 3:07 PM CDT 30 mL/h r New Bag 02/16/2021 1:47 PM CDT 30 mL/hr 30 mL/hr Lactated Ringer's (LR) infusion intravenous, Continuous PRN, Starting on Sana 02/16/21 at 1531, Anesthesia Intra-op New Bag 02/16/2021 3:31 PM CDT lidocaine PF (XYLOCAINE) 10 mg/mL (1 %) preservative free injection intravenous, As needed, Starting on Sana 02/16/21 at 1520, Anesthesia Intra-op Given 02/16/2021 3:20 PM CDT 20 mg midazolam (VERSED) 1 mg/mL injection intravenous, As needed, Starting on Sana 02/16/21 at 1507, Anesthesia Intra-op Given 02/16/2021 3:07 PM CDT 2 mg ondansetron (ZOFRAN) injection intravenous, Administer over 2 Minutes, As needed, Starting on Sana 02/16/21 at 1655, Anesthesia Intra-op Given 02/16/2021 4:55 PM CDT 4 mg phenylephrine (SANDHYA-SYNEPHRINE) 1 mg/10 mL (100 mcg/mL) in sodium chloride 0.9% (premix) intravenous, As needed, Starting on Sana 02/16/21 at 1544, Anesthesia Intra-op Given 02/16/2021 3:44 PM CDT 100 mcg propofoL (DIPRIVAN) 10 mg/mL IV intravenous, As needed, Starting on Sana 02/16/21 at 1520, Anesthesia Intra-op Given 02/16/2021 5:09 PM CDT 20 mg Given 02/16/2021 5:05 PM CDT 20 mg Given 02/16/2021 5:03 PM CDT 20 mg propofoL (DIPRIVAN) 10 mg/mL IV intravenous, Continuous PRN, Starting on Sana 02/16/21 at 1530, Anesthesia Intra-op Rate/Dose Change 02/16/2021 3:41 PM CDT 130 mcg/kg/min 62.322 mL/hr New Bag 02/16/2021 3:30 PM CDT 150 mcg/kg/min 71.91 mL/ hr succinylcholine syringe intravenous, As needed, Starting on Sana 02/16/21 at 1520, Anesthesia Intra-op Given 02/16/2021 3:20 PM CDT 100 mg documented in this encounter Care Teams Advertising Production Manager Relationship Specialty Start Date End Date Tip Armenta MD [address] [address] PCP - General Family Medicine 03/18/19 Eleanor Ramon MD [address] [place] [address] Medical Oncologist/Back Line Cook Hematology 07/12/20 documented as of this encounter
--- OUTSIDE RECORDS SUMMARY | 2024-05-18 22:15 | XMS_ITS | Encounter Summary ---
Author Organization [facility] Address [address] [facility] [address] [place] [address] Phone Care Team Providers Care Pillowcase Cutter Name Role Phone Tip Armenta MD Primary Care Provider [phone] Eleanor Ramon MD Unavailable [phone] Encounter Details Date Type Department Care Team (Late st Contact Info) Description 03/03/[address] [facility] Neurosurgery [address] [facility] Medical Office Building [address] [place] [address] Christa Brenner, JODIE [address] [place] [address] Social History Tobacco Use Types [...] on file Legal Sex Male 1:20 AM BLOCKER HAND Gender Identity Not on file Sexual Orientation Not on file documented as of this encounter Progress Notes * Christa Brenner RN - 03/03/2021 11:03 AM CDT Patient was seen in clinic today for a staff visit/wound check. No issues with incision. Edges are approximated well overall, except a small portion on left side that is slightly open. Instructed patient to keep an eye on it. Patient denies any swelling, redness, and drainage. He is progressing well after surgery and his strength has improved. Patient endorses being tired after movement, explained this is normal and expected after anesthesia. It should continue to improve as he continues to recover. Refill for oxycodone sent to Dr. Chavira to approve, since Dr. Concepcion is OOT. Aware of upcoming appointment with Dr. Concepcion. documented in this encounter Plan of Treatment Upcoming Encounters Date Type Department Care Team (Late st Contact Info) Description 05/22/2024 10:45 AM BLOCKER HAND Hospital Encounter [facility] Endoscopy [address] [place] [address] Nikolay Boucher MD [address] [place] [address] 05/22/2024 10:45 AM BLOCKER HAND - 05/22/2024 11:15 AM BLOCKER HAND Surgery [facility] Endoscopy [address] [place] [address] Nikolay Boucher MD [address] [place] [address] EGD Scheduled Procedures Name Priority Associated Diagnoses Date/Ti nm ESOPHAGOGASTRODUODENOSCOPY Crohn's disease of both small and large intestine with intestinal obstruction (HCC) 05/22/2024 10:45 AM BLOCKER HAND documented as of this encounter Visit Diagnoses Not on filedocumented in this encounter Care Teams Pillowcase Cutter Relationship Specialty Start Date End Date Tip Armenta MD [address] [address] PCP - General Family Medicine 03/18/19 Eleanor Ramon MD [address] [place] [address] Medical Oncologist/Emergency Operator Hematology 07/12/20 documented as of this encounter
--- OUTSIDE RECORDS SUMMARY | 2024-05-18 22:15 | XMS_ITS | Encounter Summary ---
Author Organization [facility] Address [address] [facility] [address] [place] [address] Care Team Providers Care Ship'S Officer Name Role Phone Tip Armenta MD Primary Care Provider [phone] Eleanor Ramon MD Unavailable Encounter Details Date Type Department Care Team (Late st Contact Info) Description 02/10/2021 Orders Only [facility] Testing Site - [facility]. Building [facility]ly [facility] [facility] [address] [place] [address] Clifford Silvestre MD [address] [facility] [address] [place] [address] Pre-operative laboratory examination (Primary Dx) Social History Tobacco Use Types [...] on file Legal Sex Male 1:20 AM STERILE INSTRUMENT TECHNICIAN Gender Identity Not on file Sexual Orientation Not on file documented as of this encounter Progress Notes * Jessa York - 02/10/2021 3:45 PM CDT Class: Internal Referral Ordering User: Suzanne Dowell RN Auth Provider: CLIFFORD SILVESTRE Provider: ROWAN NURSE, PRE ADMISSION TESTING RM 1 Diagnosis: ?? Department: [facility] Pre Anes Testing Sched Instruct: ?? Comment: ?? Order Specific Questions Question Answer Comment Testing types: Pre-procedure ?? Date of Px/chemo/treatment/placement/transfer 02/16/2021 ?? Testing site patient will be sent to: [place] ?? Date testing requested: 02/12/2021 ?? Testing: COVID-19 RNA ?? Is this the first COVID-19 test for this patient? Yes ?? Does the patient currently work in a healthcare facility with direct patient contact? No ?? Is the patient a resident of a congregate care or living setting? No ?? Is the patient ? No ?? Please select the performing region: [facility] documented in this encounter Plan of Treatment Upcoming Encounters Date Type Department Care Team (Late st Contact Info) Description 05/22/2024 10:45 AM STERILE INSTRUMENT TECHNICIAN Hospital Encounter [facility] Endoscopy [address] [place] [address] Nikolay Boucher MD [address] [place] [address] 05/22/2024 10:45 AM STERILE INSTRUMENT TECHNICIAN - 05/22/2024 11:15 AM STERILE INSTRUMENT TECHNICIAN Surgery [facility] Endoscopy [address] [address] [address] Nikolay Boucher MD [address] [place] [address] EGD Scheduled Procedures Name Priority Associated Diagnoses Date/Ti me ESOPHAGOGASTRODUODENOSCOPY Crohn's disease of both small and large intestine with intestinal obstruction (HCC) 05/22/2024 10:45 AM STERILE INSTRUMENT TECHNICIAN documented as of this encounter Results * COVID-19 Coronavirus RNA Nasopharyngeal (02/12/2021 9:03 AM CDT) COVID-19 RNA Not Detected [facility] Comment: Interpretive Data Synonyms for this test include: PCR and NAAT . ??Testing performed by the [facility] Molecular Infectious Disease Laboratory. The 2019-Novel Coronavirus [...] June 30, 2020. First COVID-19 test? Unknown [facility] Employeed in healthcare? Unknown [facility] status? No [facility] Group care resident? No [facility] Hospitalized? Unknown [facility] Is patient in ICU? Unknown [facility] Symptomatic as defined by CDC? No [facility] Nasopharyngeal 02/12/2021 9: 03 AM CDT 02/12/2021 12:38 PM CDT Narrative [facility] - 02/12/2021 7:21 PM CDT What is the reason for testing?->Screening prior to scheduled procedure or surgery (batch) Clifford Silvestre MD LAB MICROBIOLOGY - [facility] Final Result [facility] Department [place] [address] documented in this encounter Visit Diagnoses Diagnosis Pre-operative laboratory examination- Primary Pre-procedural laboratory examination Pre-operative laboratory examination Pre-procedural laboratory examination Crohn's disease of both small and large intestine with intestinal obstruction (HCC) documented in this encounter Care Teams Ship'S Officer Relationship Specialty Start Date End Date Tip Armenta MD [address] [address] PCP - General Family Medicine 03/18/19 Eleanor Ramon MD [address] [place] [address] Medical Oncologist/Automatic Beading Lathe Operator Hematology 07/12/20 documented as of this encounter
--- OUTSIDE RECORDS SUMMARY | 2024-05-18 22:15 | XMS_ITS | Encounter Summary ---
Author Organization [facility] Address [address] [facility] [address] [place] [address] Phone Care Team Providers Care Staffing Associate Name Role Phone Tip Armenta MD Primary Care Provider [phone] Eleanor Ramon MD Unavailable [phone] Encounter Details Date Type Department Care Team (Late st Contact Info) Description 03/14/2021 Telephone [facility] Neurosurgery [address] [facility] Advanced Medicine 6th [place] [address] [place] [address] Clifford Concepcion MD [address] [place] [address] Social History Tobacco Use Types [...] on file Legal Sex Male 1:20 AM BOTTOM BLEACHER Gender Identity Not on file Sexual Orientation Not on file documented as of this encounter Miscellaneous Notes * Telephone Encounter - Caroline Acevedo - 03/14/2021 11:52 AM CDT There is a letter scanned in media from [facility] regarding pts scripts. Please review and address if needed. documented in this encounter Plan of Treatment Upcoming Encounters Date Type Department Care Team (Late st Contact Info) Description 05/22/2024 10:45 AM BOTTOM BLEACHER Hospital Encounter [facility] Endoscopy [address] [place] [address] Nikolay Boucher MD [address] [place] [address] 05/22/2024 10:45 AM BOTTOM BLEACHER - 05/22/2024 11:15 AM BOTTOM BLEACHER Surgery [facility] Endoscopy [address] [place] [address] Nikolay Boucher MD [address] [place] [address] EGD Scheduled Procedures Name Priority Associated Diagnoses Date/Ti me ESOPHAGOGASTRODUODENOSCOPY Crohn's disease of both small and large intestine with intestinal obstruction (HCC) 05/22/2024 10:45 AM BOTTOM BLEACHER documented as of this encounter Visit Diagnoses Not on filedocumented in this encounter Care Teams Staffing Associate Relationship Specialty Start Date End Date Tip Armenta MD [address] [address] PCP - General Family Medicine 03/18/19 Eleanor Ramon MD [address] [place], [place] [address] Medical Oncologist/Char Conveyor Tender Hematology 07/12/20 documented as of this encounter
--- OUTSIDE RECORDS SUMMARY | 2024-05-18 22:15 | XMS_ITS | Encounter Summary ---
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 Procedures XR Spine Cervical 2 or 3 Views Clifford Concepcion MD [address] [place] [address] Phone: tel: fax: [place] [address] [place] [address] Referral ID Status Reason Start Date Expiration Date Visits Re quested Visits Authorized [id number] Closed 03/28/2021 04/27/2022 1 1 Reason for Visit * Diagnostic Imaging (Routine) - Closed Specialty Diagnoses / Procedures Referred By Contac t Referred To Contact Diagnoses 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 Procedures XR Spine Cervical 2 or 3 Views Clifford Concepcion MD [address] [place] [address] Phone: tel: fax: [place] [address] [address] Referral ID Status Reason Start Date Expiration Date Visits Re quested Visits Authorized [id number] Closed 03/28/2021 04/27/2022 1 1 Encounter Details Date Type Department Care Team (Latest Contact Info) Description 03/30/2021 10:10 AM CDT - 03/30/2021 11:59 PM CDT Hospital Encounter [id number] [address] [facility] [address] [place] [id number] Clifford Concepcion MD [address] [place] [address] 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 2 each 2 12/30/2020 1 hyoscyamine (LEVSIN) 0.125 mg tabletIndications: Urinary Incontinence Take 1 tab PO every 6 hours as needed for spasms 120 tablet 5 07/18/2020 2 meloxicam (MOBIC) 15 mg tablet 03/11/2021 2 mupirocin (mupirocin) 2 % ointment Apply [...] 14 days 140 mL 2 03/28/2020 2 oxyCODONE (ROXICODONE) 5 mg immediate release tabletIndications: Pain Take 1-2 tablets (5-10 mg total) by mouth every 6 (six) hours as needed for pain 42 tablet 03/03/2021 2 vit A-vit F-firc-icewhlur 15 mg lozenge Take 1 tablet by mouth as needed 10/12/2016 2 documented as of this encounter Discharge Disposition Disposition Code Departure Means Destination Discharge to home or self care documented in this encounter Plan of Treatment Upcoming Encounters Date Type Department Care Team (Late st Contact Info) Description 05/22/2024 10:45 AM AIR CARGO AGENT Hospital Encounter [facility] Endoscopy [address] [place] [address] Nikolay Boucher MD [address] [facility] [place] [address] 05/22/2024 10:45 AM AIR CARGO AGENT - 05/22/2024 11:15 AM AIR CARGO AGENT Surgery [facility] Endoscopy [address] [address] Nikolay Boucher MD [address] [place] [address] EGD Scheduled Procedures Name Priority Associated Diagnoses Date/Ti me ESOPHAGOGASTRODUODENOSCOPY Crohn's disease of both small and large intestine with intestinal obstruction (HCC) 05/22/2024 10:45 AM AIR CARGO AGENT documented as of this encounter Procedures Procedure Name Priority Date/Time Associated Diagnosis Comments XR SPINE CERVICAL 2 OR 3 VIEWS Schedule Routine, Read Routine (OP Routine) 03/30/2021 10:16 AM CDT 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 Unchanged C6-C7 discectomy with arthroplasty in expected positioning. Electronically signed by: Jordy Landry MD Narrative 03/30/2021 10:31 AM CDT EXAMINATION: XR SPINE CERVICAL 2 OR 3 VIEWS HISTORY: ??Neck pain. FINDINGS: 2 views of the cervical spine are submitted for interpretation with comparison to 02/16/2021. There is loss of the normal cervical lordosis. There is an unchanged C6-C7 discectomy with arthroplasty. Vertebral body heights and disc spaces are otherwise preserved. There is unchanged mild anterior soft tissue swelling. Procedure Note Jordy Landry MD - 03/30/2021 EXAMINATION: XR SPINE CERVICAL 2 OR 3 VIEWS HISTORY: Neck pain. FINDINGS: 2 views of the cervical spine are submitted for interpretation with comparison to 02/16/2021. There is loss of the normal cervical lordosis. There is an unchanged C6-C7 discectomy with arthroplasty. Vertebral body heights and disc spaces are otherwise preserved. There is unchanged mild anterior soft tissue swelling. IMPRESSION: 1. Unchanged C6-C7 discectomy with arthroplasty in expected positioning. 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
--- OUTSIDE RECORDS SUMMARY | 2024-05-18 22:15 | XMS_ITS | Encounter Summary ---
Author Organization [facility] Address [address] [facility] [address] [place] [address] Phone Care Team Providers Care Fire Alarm Dispatcher Name Role Phone Tip Armenta MD Primary Care Provider [phone] Eleanor Ramon MD Unavailable [phone] Encounter Details Date Type Department Care Team (Late st Contact Info) Description 02/13/[address] [facility] [address] [facility] Medical Office Building [address] [place] [address] Christa Brenner NP [address] [place] [address] Social History Tobacco Use Types [...] on file Legal Sex Male 1:20 AM RELISH BLENDER Gender Identity Not on file Sexual Orientation Not on file documented as of this encounter Miscellaneous Notes * Telephone Encounter - Christa Brenner RN - 02/14/2021 1:23 PM CDT Called and spoke to patient regarding questions and nasal ointment. Patient has ointment at home, however needs a new script because he does not have much left. New script sent it. * Telephone Encounter - Ronel Nj RMA - 02/14/2021 7:57 AM CDT Patient called and states that she has some question regarding the patient nasal ointment Patient would like a call back to discuss the patient medication * Telephone Encounter - Christa Brenner RN - 02/13/2021 10:34 AM CDT Called and spoke to patient regarding surgery arrival time of 1000 for 1200 start at [facility]. Patient does not have any questions at this time. documented in this encounter Plan of Treatment Upcoming Encounters Date Type Department Care Team (Late st Contact Info) Description 05/22/2024 10:45 AM RELISH BLENDER Hospital Encounter [facility] Endoscopy [address] [place] [address] Nikolay Boucher MD [address] [place] [address] 05/22/2024 10:45 AM RELISH BLENDER - 05/22/2024 11:15 AM RELISH BLENDER Surgery [facility] Endoscopy [address] [place] [address] Nikolay Boucher MD [address] [place] [address] EGD Scheduled Procedures Name Priority Associated Diagnoses Date/Ti ne ESOPHAGOGASTRODUODENOSCOPY Crohn's disease of both small and large intestine with intestinal obstruction (HCC) 05/22/2024 10:45 AM RELISH BLENDER documented as of this encounter Visit Diagnoses Not on filedocumented in this encounter Care Teams Fire Alarm Dispatcher Relationship Specialty Start Date End Date Tip Armenta MD [address] [address] PCP - General Family Medicine 03/18/19 Eleanor Ramon MD [address] [facility] [address] [place] [address] Medical Oncologist/Change Management Specialist Hematology 07/12/20 documented as of this encounter
--- OUTSIDE RECORDS SUMMARY | 2024-05-18 22:15 | XMS_ITS | Encounter Summary ---
Author Organization [facility] Healthcare Address [address] [place] [address] Care Team Providers Care It Help Desk Technician Name Role Phone Tip Armenta MD Primary Care Provider [phone] Eleanor Ramon MD Unavailable [phone] Encounter Details Date Type Department Care Team (Late st Contact Info) Description 02/16/2021 12:05 PM CDT - 02/16/2021 2:30 PM CDT Surgery [facility] Operating Room [address] [place] [address] Clifford Concepcion MD [address] [place] [address] CERVICAL ARTHROPLASTY C6-C7 disc arthroplasty Surgery Details Date/Time Status Location OR Service Patient Class Case Class Case Type Trauma Case? 02/16/2021 12:05 PM Posted [facility] OPERATING ROOM OR Neurosurgery Outpatient Elective Panel 1 Procedure LRB Anes Op Region Wound Class Comments CERVICAL ARTHROPLASTY C6-C7 disc arthroplasty N/A General Spine Cervical Class I - Clean SPINAL CORD MONITORING N/A Choice Cl ass II - Clean Contaminated Surgeon Surgeon Role Service Panel Clifford Concepcion MD Primary Neurosurgery 1 Case Notes Open, anterior, supine, osi-flat board, chin strap traction, koros/blackbelt, fiberoptic, fluoro, portable xrays, hao drill, special drill bit 3mm/4mm coarse bit, bone bundle collector sucker documented in this encounter Social History Tobacco [...] on file 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 Gender Identity Not on file Sexual Orientation Not on file documented as of this encounter Last Filed Vital Signs Vital Sign Reading Time Taken Comments Blood Pressure 167/94 02/16/2021 12:45 PM CDT Pulse 93 02/16/2021 2:30 PM CDT Temperature 37.4 ??C (99.3 ??F) 02/16/2021 2:30 PM CD T Respiratory Rate 15 02/16/2021 2:30 PM CDT Oxygen Saturation 95% 02/16/2021 2:30 PM CDT Inhaled Oxygen Concentration - - Weight 98 kg (216 lb 1.6 oz) 02/16/2021 12:45 PM CDT Height 185.4 cm (6' 1 ) 02/16/2021 12:45 PM CDT Body Mass Index 28.51 02/16/2021 12:45 PM CDT documented in this encounter Discharge Summaries * Michael Viveros PA - 02/17/2021 8:49 AM CDT Inpatient Discharge Summary BRIEF OVERVIEW Admitting Provider: Clifford Concepcion MD Discharge Provider: Clifford Concepcion MD Primary Care Physician at Discharge: Tip Armenta MD [phone] Admission Date: 02/16/2021 Discharge Date: 02/17/2021 Admission Location: [facility] Hospital Problems/Diagnoses: Principal Problem: Cervical disc disorder with myelopathy of mid-cervical region Active Problems: Iron deficiency anemia due to chronic blood loss Crohn's disease of both small and large intestine (HCC) HTN (hypertension) Risk factors for obstructive sleep apnea Resolved Problems: No resolved hospital problems. DETAILS OF HOSPITAL STAY Presenting Problem/History of Present Illness: Patient presented for elective surgery on 9/23 Hospital Course: Patient underwent a C6-7 cervical arthroplasty that was completed without complication on 02/16/21. Post operative, patient was transferred to the post surgical unit to monitor [facility] sats [facility] a baseline at time of [facility]. Active Issues Requiring Follow-up: Post op cervical disc replacement Test Results Pending at Discharge: Operative Procedures Performed: Procedure(s): CERVICAL ARTHROPLASTY C6-C7 disc arthroplasty SPINAL CORD MONITORING Other Procedures: none Pertinent Test Results: XR SPINE CERVICAL 2 OR 3 VIEWS [...] New C6-7 disc arthroplasty in expected position. Discharge Details Physical Exam at Discharge: Discharge Condition: good Pulse: 99 Resp: 20 BP: 155/96 Temp: 37.6 ??C (99.6 ??F) Weight: 98 kg (216 lb 1.6 oz) Pertinent Exam Findings at Discharge: intact,no weakness Discharge Disposition: Code Status at Discharge: full Discharge Instructions: Discharge Instructions Anterior Cervical Discectomy and Artificial Disc Placement Your doctor removed one or more discs from your neck, to remove pressure from the spinal cord or nerve roots, and then placed an artificial disc prosthetic. The following are instructions and guidelines meant to help in your recovery once you have been discharged from the hospital. When to call our office Although your recovery will likely be uneventful, you may have some residual aches and pains in your neck and/or arms. Specifically, some patients complain of a tightness or deep ache in the back of the neck or between the shoulder blades. This is usually due to sore and tight muscles. This is besttreated with muscle relaxants and pain medication. Resting or applying a warm compress may help. This is normal and should improve in the next few weeks. You may notice some pain with swallowing in the first month after surgery - this is normal. During the operation, a breathing tube is placed down your throat by the anesthesiologist. In addition, your throat is gently pulled to one side to perform the surgery. For both of these reasons, your throatwill be sore. Some patients also notice the sensation of having a ???lump?? in their throat. You may have difficulty swallowing certain foods like rice or corn - this can be normal. However, if you are having difficulty swallowing liquids, call your doctor immediately. Call our office immediately (phone numbers listed at the end of these instructions) if you experience the following symptoms: ??? Fevers greater than 101??F ??? Drainage from your incision, or surrounding redness or swelling ??? Pain that is progressively getting worse, and is not relieved by your pain medications, rest, or applying warms packs ??? New numbness or weakness ??? Difficulty controlling your bladder ??? Loss of control of your bowels Call 911 immediately if you experience the following symptoms: ??? Sudden weakness or difficulty speaking and/or swallowing ??? Sudden onset persistent headache, with nausea and/or vomiting ??? Sudden change or loss of vision ??? New difficulty with breathing ??? Chest pain Wound care Your wound has been closed with absorbable sutures. They will dissolve over the next few weeks.. ??? Keep your incision clean. Do NOT use lotions, ointments, or creams on the incision. ??? Do not scrub, rub, or pick at the incision. ??? If you have a gauze dressing covering your wound, remove it within 1-2 days and leave the woundopen to air. ??? You may get your incision wet now. If your wound gets wet, lightly dab it dry. ??? Do NOT submerge yourself in any water that will cover the incision (bathtub, hot tub, swimming pool), unless specifically cleared by your doctor. Activity Until released by your doctor, you should not return to work. You should rest at home and let your body heal. Taking short walks is encouraged, but avoid strenuous exercise. Do not jog, run, lift weights, bicycle, or participate in any other exercises unless specifically allowed by your doctor. Most importantly, avoid lifting objects heavier than a telephone book or a carton of milk as this places strain on your neck. Avoid household activities that involve lifting, twisting, pushing, and pulling such as laundry, vacuuming, grocery shopping, and childcare. Try to arrange for help from friendsand family for these activities while your neck heals. Some patients are given a hard neck brace (cervical collar) to wear. This keeps your spine still, and allows it to heal properly. You can remove the collar when lying down, but you should wear it at all other times. You do not need to wear the collar while sleeping. Some operations do not require the use of a hard collar- your doctor will prescribe one if you need it. You should not drive until cleared by your doctor. This time can vary but is typically around 3 weeks. Do not take baths or sit in a hot tub or pool until approved by your doctor at your follow-up appointment. Do not smoke tobacco Smoking has been proven to interfere with the normal healing of the bones in your neck. Smoking will dramatically reduce the success rate of your surgery. Your primary care doctor can prescribe a patch to help you stop smoking if you would like. Diet You can return to your usual diet, unless instructed otherwise by your doctor. Medications You should resume taking all of your normal medications, unless instructed otherwise by your doctor. You should not take any blood thinners or antiplatelet agents (such as Aspirin, Plavix, or Coumadin), unless specifically approved by your doctor. If you have questions about your normal medications (such as those prescribed for high blood pressure), call your family doctor or veterans service representative. You will be given a prescription for pain medications, a muscle relaxer and possibly a laxative, aspain medications can cause constipation. Take the pain medicines as instructed. You can also take ubnm-bab-mzboihl anti-inflammatory medications (such as: Motrin, Advil, Ibuprofen, Celebrex, Vioxx, Naprosyn) for pain. If your pain is not reasonably controlled by the medications, contact your doctor???s office. Follow up - Neurosurgery: You should follow up in Dr. Concepcion's clinic in 4-6 weeks with no additional imaging. If you do not have a follow-up appointment, call to schedule one. Please arrive 30 minutes prior to your scheduled appointment. Phone numbers ??? Appointment Scheduling: ??? Doctor???s Office: Dr. Clifford Concepcion, ??? After hours emergency: or Discharge Medications: Current Medications TAKE these medications ALPRAZolam 1 mg tablet TK 1/2 TO 1 T PO BID PRF ANXIETY Commonly known as: XANAX amitriptyline 10 mg tablet Take 10 mg by mouth nightly Commonly known as: ELAVIL amLODIPine 5 mg tablet Take 5 mg by mouth every morning Commonly known as: NORVASC BD SafetyGlide Syringe 3 mL 23 x 1 syringe U UTD Generic drug: syringe with needle Cialis 20 mg tablet TK 1 T PO QD PRN Generic drug: tadalafiL cyanocobalamin 1,000 mcg/mL injection INJECT 1 ML Q 2 WEEKS UTD Commonly known as: Vitamin B-12 cyclobenzaprine 5 mg tablet Take 1 tablet (5 mg total) by mouth 3 (three) times a day as needed for muscle spasms Commonly known as: FLEXERIL diphenoxylate-atropine 2.5-0.025 mg per tablet Take 1 tablet by mouth 3 (three) times a day as needed Commonly known as: LOMOTIL folic acid 1 mg tablet Take 1 mg by mouth every morning Commonly known as: FOLVITE Humira(CF) Pen 40 mg/0.4 mL pen injector kit Inject 0.4 mL (40 mg total) under the skin every 14 (fourteen) days Safety labs required every 3 months for med refills, labs due in 03/2021. Generic drug: adalimumab hydroCHLOROthiazide 25 mg tablet Take 25 mg by mouth as needed For: visible water retention Commonly known as: HYDRODIURIL hyoscyamine 0.125 mg tablet Take 1 tab PO every 6 hours as needed for spasms For: involuntary leakage of urine Commonly known as: LEVSIN irbesartan 300 mg tablet Take 300 mg by mouth every morning Commonly known as: AVAPRO lansoprazole 15 mg capsule Take 15 mg by mouth 2 (two) times a day Commonly known as: PREVACID meloxicam 15 mg tablet Take 15 mg by mouth every morning Commonly known as: MOBIC montelukast 10 mg tablet Take 10 mg by mouth as needed Commonly known as: SINGULAIR * mupirocin 2 % ointment APPLY TOPICALLY TO THE AFFECTED AREA TWICE DAILY Commonly known as: BACTROBAN * mupirocin 2 % ointment Apply to each nostril 2 (two) times a day Use pea size amount in each nostril twice daily for five (5) days. After application, press sides of nose together and gently massage. Commonly known as: BACTROBAN nystatin 100,000 unit/mL suspension Take 5 ml PO 2 times daily,swish and swallow for 14 days ondansetron 8 mg tablet TK 1 T PO TID PRN Commonly known as: ZOFRAN oxyCODONE 5 mg immediate release tablet Take 1-2 tablets (5-10 mg total) by mouth every 6 (six) hours as needed for pain For: pain Commonly known as: ROXICODONE testosterone cypionate 200 mg/mL injection INJ 1 ML IM Q WK Commonly known as: DEPO-TESTOTERONE Triple Magnesium Complex 400 mg magnesium capsule Take 1 capsule by mouth as needed Generic drug: magnesium oxide,aspartate,citr Zinc with Vitamins A and C 15 mg lozenge Take 1 tablet by mouth as needed Generic drug: vit A-vit S-cryt-eohlbuta zolpidem 10 mg tablet Take 10 mg by mouth nightly as needed For: difficulty falling asleep Commonly known as: AMBIEN * This list has 2 medication(s) that are the same as other medications prescribed for you. Read the directions carefully, and ask your doctor or other care provider to review them with you. Outpatient Follow-Up: Future Appointments Date Time Provider Department Center 03/03/2021 11:00 AM Clifford Concepcion MD [id number] 03/30/2021 10:45 AM Clifford Concepcion MD [id number] 07/21/2021 8:00 AM Claudia Mcclendon, RESIDENTIAL CAREGIVER [facility] Cosigned by Clifford Concepcion MD at 02/18/2021 10:23 AM CDT documented in this encounter Discharge Instructions * Discharge Instructions* Michael Viveros PA - 02/16/2021 3:12 PM CDT Lex Herbert, ? The medication renewals below were approved, please check with your pharmacy to determine when it is available for pickup. ?? The following prescriptions will be filled at [id number] - [place], [place] - [id number] [[phone]]: - oxyCODONE (ROXICODONE) 5 mg immediate release tablet - cyclobenzaprine (FLEXERIL) 5 mg tablet If you have any questions about these medications, please go to Messaging and then Ask a Question then I have a question for my physician. Discharge Instructions Anterior Cervical Discectomy and Artificial Disc Placement Your doctor removed one or more discs from your neck, to remove pressure from the spinal cord or nerve roots, and then placed an artificial disc prosthetic. The following are instructions and guidelines meant to help in your recovery once you have been discharged from the hospital. When to call our office Although your recovery will likely be uneventful, you may have some residual aches and pains in your neck and/or arms. Specifically, some patients complain of a tightness or deep ache in the back of the neck or between the shoulder blades. This is usually due to sore and tight muscles. This is besttreated with muscle relaxants and pain medication. Resting or applying a warm compress may help. This is normal and should improve in the next few weeks. You may notice some pain with swallowing in the first month after surgery - this is normal. During the operation, a breathing tube is placed down your throat by the anesthesiologist. In addition, your throat is gently pulled to one side to perform the surgery. For both of these reasons, your throatwill be sore. Some patients also notice the sensation of having a ???lump?? in their throat. You may have difficulty swallowing certain foods like rice or corn - this can be normal. However, if you are having difficulty swallowing liquids, call your doctor immediately. Call our office immediately (phone numbers listed at the end of these instructions) if you experience the following symptoms: ??? Fevers greater than 101??F ??? Drainage from your incision, or surrounding redness or swelling ??? Pain that is progressively getting worse, and is not relieved by your pain medications, rest, or applying warms packs ??? New numbness or weakness ??? Difficulty controlling your bladder ??? Loss of control of your bowels Call 911 immediately if you experience the following symptoms: ??? Sudden weakness or difficulty speaking and/or swallowing ??? Sudden onset persistent headache, with nausea and/or vomiting ??? Sudden change or loss of vision ??? New difficulty with breathing ??? Chest pain Wound care Your wound has been closed with topical skin glue. The glue will fall off over time.. ??? Keep your incision clean. Do NOT use lotions, ointments, or creams on the incision. ??? Do not scrub, rub, or pick at the incision. ??? If you have a gauze dressing covering your wound, remove it within 1-2 days and leave the woundopen to air. ??? You may get your incision wet now. If your wound gets wet, lightly dab it dry. ??? Do NOT submerge yourself in any water that will cover the incision (bathtub, hot tub, swimming pool), unless specifically cleared by your doctor. Activity Until released by your doctor, you should not return to work. You should rest at home and let your body heal. Taking short walks is encouraged, but avoid strenuous exercise. Do not jog, run, lift weights, bicycle, or participate in any other exercises unless specifically allowed by your doctor. Most importantly, avoid lifting objects heavier than a telephone book or a carton of milk as this places strain on your neck. Avoid household activities that involve lifting, twisting, pushing, and pulling such as laundry, vacuuming, grocery shopping, and childcare. Try to arrange for help from friendsand family for these activities while your neck heals. Some patients are given a hard neck brace (cervical collar) to wear. This keeps your spine still, and allows it to heal properly. You can remove the collar when lying down, but you should wear it at all other times. You do not need to wear the collar while sleeping. Some operations do not require the use of a hard collar- your doctor will prescribe one if you need it. You should not drive until cleared by your doctor. This time can vary but is typically around 3 weeks. Do not take baths or sit in a hot tub or pool until approved by your doctor at your follow-up appointment. Do not smoke tobacco Smoking has been proven to interfere with the normal healing of the bones in your neck. Smoking will dramatically reduce the success rate of your surgery. Your primary care doctor can prescribe a patch to help you stop smoking if you would like. Diet You can return to your usual diet, unless instructed otherwise by your doctor. Medications You should resume taking all of your normal medications, unless instructed otherwise by your doctor. You should not take any blood thinners or antiplatelet agents (such as Aspirin, Plavix, or Coumadin), unless specifically approved by your doctor. If you have questions about your normal medications (such as those prescribed for high blood pressure), call your family doctor or veterans service representative. You will be given a prescription for pain medications, a muscle relaxer and possibly a laxative, aspain medications can cause constipation. Take the pain medicines as instructed. You can also take xroq-ldy-whkvltf anti-inflammatory medications (such as: Motrin, Advil, Ibuprofen, Celebrex, Vioxx, Naprosyn) for pain. If your pain is not reasonably controlled by the medications, contact your doctor???s office. Follow up - Neurosurgery: You should follow up in Dr. Concepcion's clinic in 10-14 days with no additional imaging. If you do not have a follow-up appointment, call to schedule one. Please arrive 30 minutes prior to your scheduled appointment. Phone numbers ??? Appointment Scheduling: ??? Doctor???s Office: Dr. Clifford Concepcion, ??? After hours emergency: or documented in this encounter Medications at Time [...] (Humira,CF, Pen) 40 mg/0.4 mL pen injector kitIndications:Senior Data Developer hn's disease of small and large intestines with complication (HCC) Inject 0.4 mL (40 mg total) under the skin every 14 (fourteen) days Safety labs required every 3 months for med refills, labs due in 03/2021. 2 each 2 12/30/2020 1 cyclobenzaprine (FLEXERIL) 5 mg tablet Take 1 tablet (5 mg total) by mouth 3 (three) times a day as needed for muscle spasms 90 tablet 02/16/2021 1 hyoscyamine (LEVSIN) 0.125 mg tabletIndications: Urinary Incontinence Take 1 tab PO every 6 hours as needed for spasms 120 tablet 5 07/18/2020 2 meloxicam (MOBIC) 15 mg tablet Take 15 mg by mouth every morning 01/20/2021 1 mupirocin (BACTROBAN) 2 % ointment APPLY TOPICALLY TO THE AFFECTED AREA TWICE DAILY 11/07/2020 1 mupirocin (mupirocin) 2 % ointment Apply to [...] 6 (six) hours as needed for pain 56 tablet 02/16/2021 1 vit A-vit H-zsnt-vsjjeuka 15 mg lozenge Take 1 tablet by mouth as needed 10/12/2016 2 documented as of this encounter Discharge Disposition Disposition Code Departure Means Destination Discharge to home or self care documented in this encounter Progress Notes * Michael Viveros PA - 02/17/2021 8:52 AM CDT 55 y/o male sp C6-7 cervical arthroplasty on 02/[address] Concepcion. Patient is comfortable. Drain output noted. ?? Alert and oriented Incision is clean and dry. NAYLA drain output noted and pulled easily without resistance and completely intact. Patient tolerated well. Neurovascular at baseline, no weakness. MAEW. ?? Xrays noting expected and satisfactory post surgical changes at C6-7 ?? POD#1 sp C6-7 cervical arthroplasty ?? DC home today when cleared by all. Rxs sent to pharmacy electronically. documented in this encounter H&P Notes * Michael Viveros PA - 02/16/2021 12:05 PM CDT I have reviewed the H&P, examined the patient, and endorse the findings as written. Plan of Care : Based on the above findings, I consider Mello Herbert to be an acceptable risk for : Procedure(s): CERVICAL ARTHROPLASTY C6-C7 disc arthroplasty SPINAL CORD MONITORING Awake, alert, orientedx3 Bilateral upper extremity strength grossly 5/5, full and symmetric throughout including bilateral deltoids, biceps, triceps, wrist extension, wrist flexion. Hand audio visual secretary is 5/5 but intrinsics are 4 to 4+ out of 5. Negative Chavez's Negative Babinski Cosigned by Clifford Concepcion MD at 02/16/2021 2:59 PM CDT Source Note - Francosi Anthony MD - 02/10/2021 7:31 AM CDT Images from the original note were not included. [facility] Preoperative [facility] and Planning Preoperative Evaluation Record Evaluation type/location: [facility] Planned procedure site: [facility] OR Date: 02/10/21 Anesthesia Evaluation Mello Herbert [...] Cardiovascular + Hypertension Pertinent negatives: CAD ; LA ; CABG ; valvular heart disease; valve [...] COVID19 testing to be performed on 02/12, [place]. [facility] will place the order for testing. Result [...] MD CIALIS 20 mg tablet 11/26/17 -- Shaun Chavarria MD cyanocobalamin (Vitamin [...] cypionate (DEPO-TESTOTERONE) 200 mg/mL injection 11/29/17 -- Shaun Chavarria MD vit A-vit E-bnwm-qdrdcvey (ZINC WITH VITAMINS A AND C) 15 [...] (DEPO-TESTOTERONE) 200 mg/mL injection ??? vit A-vit U-eglr-fasmfmpf (ZINC WITH VITAMINS A AND C) 15 [...] Medication protocol when under care of a HOOP EXPANDER Planned anesthesia: General Informed Consent: Anesthesia plan [...] All questions answered. documented in this encounter Consult Notes * Jesus Bower, PT - 02/17/2021 9:35 AM CDT [facility] Physical Therapy Missed Visit Patient Name: Mello Herbert Date of Service: 02/17/2021 Date of : 1965 Age: 55 y.o. male Room: [address] Admit Date: 02/16/2021 Attending Provider: Clifford Concepcion MD Primary Diagnosis: Cervical disc disorder with myelopathy of mid-cervical region Comments Occupational Therapy evaluated patient this AM and stated patient is independent with all functional mobility. Physical Therapy will discharge patient at this time as patient has no skilled Physical Therapy needs. Please re-consult as needed. Jesus Bower PT * Valery Benitez, OT - 02/17/2021 8:35 AM CDT [facility] Occupational Therapy Evaluation Patient Name: Mello Herbert Date of Service: 02/17/2021 Date of : 1965 Age: 55 y.o.male Room: [address] Admit Date: 02/16/2021 Attending Provider: Clifford Concepcion MD Primary Diagnosis: Cervical disc disorder with myelopathy of mid-cervical region Subjective HPI: Mello Herbert is a 55 y.o. male POD 1 s/p Anterior cervical discectomy and disc arthroplasty at C6-7 Past Medical History: Diagnosis Date ??? Anemia ??? Anxiety and depression ??? Crohn's colitis (CMS/HCC) (HCC) ??? GERD (gastroesophageal reflux disease) ??? Hypertension Past Surgical History: Procedure Laterality Date ??? SMALL BOWEL RESECTION Precautions: Cervical spine and Fall Risk Occupational Therapy Goal: to get back to full activity Patient Comment: I slept about 2 hours Prior Living Environment and Level of Function: Type of Home: 2 level home, bedroom upstairs Lives With: Monica Hurley Stairs to Enter: 2 Railings: none Stairs Inside: 13 Railings: bilateral Receives Help From: Monica Hurley Bathroom Shower/Tub: Walk-in shower with threshold Bathroom Toilet: Standard height Bathroom Equipment: grab bars in shower/tub, built-in shower seat and hand held shower Home Mobility Equipment: walking stick Home ADL Equipment: None Level of [place]: Independent with ADLs, Independent with transfers and Independent with ambulation Driving: Yes 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, 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 Fall within the last 6 months: No Objective Vitals: Blood pressure: 157/89 mmHg, Heart rate: 102 bpm, SPO2: 94% on room air Comments: supine in bed Pain Assessment: Pre-therapy pain: Post-therapy pain: Location: Anterior neck Pain Intervention: patient received pain medication prior to occupational therapy treatment and repositioned Cognition: Overall Cognitive Status: At Baseline Arousal: Alert Orientation: Oriented x4 (person, place, time, and situation) Following Commands: Follows all commands and directions without difficulty Safety Judgement: Good awareness of safety precautions Problem Solving: Able to problem solve independently Behavior: Easy to engage Hand Dominance: left Sensation: within functional limits RUE Assessment: Within functional limits LUE Assessment: Within functional limits Activities of Daily Living Upper Body Dressing: Patient completed upper body dressing sitting edge of bed with close supervision for safety and increased time to complete, patient participated in threading RUE, threading LUE, pulling overhead and pulling down in back . Lower Body Dressing: Patient completed lower body dressing sitting edge of bed with close supervision for maintaining precautions, verbal cueing and increased time to complete, patient participated in donning/doffing right shoe and donning/doffing left shoe . Functional Mobility Bed Mobility: Patient performed supine to edge of bed and short sit with close supervision. Patient required assistance for safety. Functional Transfers: Patient performed sit to and from stand with close supervision. Patient required assistance for safety and increased time. Toilet Transfers: Patient performed comfort height toilet transfer using no device with close supervision.Patient required assistance for safety and increased time. Shower Transfers: Patient performed shower transfer using no device to standing with close supervision. Patient required assistance for safety. Stairs: Patient negotiates 2 stairs with right hand railing and close supervision, for safety and increasedtime. Functional Ambulation: Patient ambulates x 325 feet with no device and close supervision to simulate home ambulation, for safety. Patient left sitting in recliner, needs within reach, RN notified. *Gait belt used for all OOB mobility* Assessment Brief review of medical and therapy records pertaining to current functional performance was obtained for this patient. Low complexity decision making was necessary for analysis of occupational profile, analysis of data, and consideration of treatment options. Minimal to no modification and assistance was needed for patient to complete all evaluation components. Prognosis:Good Response to today's treatment: Good Patient tolerated session well and completed bed, room and leos mobility, with supervision and demonstrating good understanding of cervical precautions. Patient demonstrated good endurance as well. Reviewed cervical precaution handout, patient and spouse verbalized understanding. Patient and spouse demonstrated ability to return home safely. Completed patient handoff and notified RN of patient's location and functional status upon completion of session. Education: Patient and spouse has been educated on the role of OT, safety, precautions, ADL re-training and energy conservation techniques. Education completed via explanation, teach back, demonstration and handout . Patient and spouse verbalized understanding and demonstrated understanding. Handouts Issued: OT cervical packet Barriers to discharge: None Care Plan Goals established: 02/17/21 1. The patient will perform upper body dressing with set up/clean up assistance in order to safely return home by 02/22/2021. Comments: met 2. The patient will perform lower body dressing with set up/clean up assistance in order to return home by 02/22/2021. Comments: met 3. The patient will simulate toileting with distant supervision in order to safely return home by 02/22/2021. Comments: met 4. The patient will perform toilet transfer with close supervision in order to safely transfer homeby 02/22/2021. Comments: met 5. The patient will perform walk-in shower transfer with close supervision in order to safely return home by 02/22/2021. Comments: met 6. The patient will recall cervical precautions with minimal cueing in order to safely return home by 02/22/2021. Comments: met Plan Treatment frequency: one time visit only, no further skilled OT indicated Recommended equipment to safely discharge: raised toilet seat, shower chair and grab bars Referrals Recommended: None. Patient okay to discharge home: Yes Comments: Patient is functioning at a supervised level and will have assist at home from spouse. Discharge Recommendation: Home with spouse and intermittent assist Valery Benitez OT documented in this encounter Miscellaneous Notes * Plan of Care - Arlene Watson RN - 02/17/2021 11:04 AM CDT Problem: Health Behavior: Goal: Understanding of discharge needs will improve Outcome: Adequate for Discharge Problem: Lack of Knowledge: Goal: Ability to state ways to decrease the risk of falls will improve Outcome: Adequate for Discharge Problem: Safety: Goal: Will remain free from falls Outcome: Adequate for Discharge Goal: Will remain free from injury from falls Outcome: Adequate for Discharge Goal: Will remain free from falls and injury in home environment Outcome: Adequate for Discharge Problem: Activity: Goal: Ability to avoid complications of mobility impairment will improve Outcome: Adequate for Discharge Goal: Ability to tolerate increased activity will improve Outcome: Adequate for Discharge Problem: Physical Regulation: Goal: Neurologic status will improve Outcome: Adequate for Discharge Goal: Ability to maintain clinical measurements within normal limits will improve Outcome: Adequate for Discharge Problem: Sensory: Goal: Pain level will decrease Outcome: Adequate for Discharge Problem: Cardiac: Goal: Hemodynamic stability will improve Outcome: Adequate for Discharge Problem: Gastrointestinal Goal: Minimal or absence of nausea and vomiting Description: INTERVENTIONS: 1. Assess gastrointestinal status 2. Provide a clean room free from unpleasant odors 3. Assess medication effects 4. Provided appropriate dietary choices 5. Monitor intake and output 6. Provide fluid volume management 7. Monitor diagnostic test results 8. Discuss complementary and alternative therapies Outcome: Adequate for Discharge Goal: Maintains or returns to baseline bowel function Description: INTERVENTIONS: 1. Assess bowel function 2. Encourage oral fluids to ensure adequate hydration 3. Administer IV fluids as ordered to ensure adequate hydration 4. Encourage mobilization and activity 5. Nutrition consult to assist patient with appropriate food choices Outcome: Adequate for Discharge Goal: Maintains adequate nutritional intake Description: INTERVENTIONS: 1. Monitor percentage of each meal consumed 2. Identify factors contributing to decreased intake, treat as appropriate 3. Assist with meals as needed 4. Monitor I&O, WT and lab values 5. Obtain nutritional consult as needed Outcome: Adequate for Discharge Goal: Establish and maintain optimal ostomy function Description: INTERVENTIONS: 1. Assess bowel function 2. Encourage oral fluids to ensure adequate hydration 3. Administer IV fluids as ordered to ensure adequate hydration 4. Encourage mobilization and activity 5. Nutrition consult to assist patient with appropriate food choices Outcome: Adequate for Discharge Goals: Clinical Goals for the Shift: pain control Summary: Pt and at bedside for education on AVS. Pt requested to walk down instead of wheelchair. provided transport home. * Plan of Care - Sarah Woods RN - 02/17/2021 2:03 AM CDT Goals: Clinical Goals for the Shift: pain 4 or less, monitor O2 Summary: Problem: Health Behavior: Goal: Understanding of discharge needs will improve Outcome: Progressing Problem: Lack of Knowledge: Goal: Ability to state ways to decrease the risk of falls will improve Outcome: Progressing Problem: Safety: Goal: Will remain free from falls Outcome: Progressing Goal: Will remain free from injury from falls Outcome: Progressing Goal: Will remain free from falls and injury in home environment Outcome: Progressing Problem: Activity: Goal: Ability to avoid complications of mobility impairment will improve Outcome: Progressing Goal: Ability to tolerate increased activity will improve Outcome: Progressing Problem: Physical Regulation: Goal: Neurologic status will improve Outcome: Progressing Goal: Ability to maintain clinical measurements within normal limits will improve Outcome: Progressing Problem: Sensory: Goal: Pain level will decrease Outcome: Progressing Problem: Cardiac: Goal: Hemodynamic stability will improve Outcome: Progressing Problem: Gastrointestinal Goal: Minimal or absence of nausea and vomiting Description: INTERVENTIONS: 1. Assess gastrointestinal status 2. Provide a clean room free from unpleasant odors 3. Assess medication effects 4. Provided appropriate dietary choices 5. Monitor intake and output 6. Provide fluid volume management 7. Monitor diagnostic test results 8. Discuss complementary and alternative therapies Outcome: Progressing Goal: Maintains or returns to baseline bowel function Description: INTERVENTIONS: 1. Assess bowel function 2. Encourage oral fluids to ensure adequate hydration 3. Administer IV fluids as ordered to ensure adequate hydration 4. Encourage mobilization and activity 5. Nutrition consult to assist patient with appropriate food choices Outcome: Progressing Goal: Maintains adequate nutritional intake Description: INTERVENTIONS: 1. Monitor percentage of each meal consumed 2. Identify factors contributing to decreased intake, treat as appropriate 3. Assist with meals as needed 4. Monitor I&O, WT and lab values 5. Obtain nutritional consult as needed Outcome: Progressing Goal: Establish and maintain optimal ostomy function Description: INTERVENTIONS: 1. Assess bowel function 2. Encourage oral fluids to ensure adequate hydration 3. Administer IV fluids as ordered to ensure adequate hydration 4. Encourage mobilization and activity 5. Nutrition consult to assist patient with appropriate food choices Outcome: Progressing * Op Note - Clifford Concepcion MD - 02/16/2021 3:57 PM CDT SURGEON Clifford Concepcion MD CASE TECHNICIAN Michael ABAD ANESTHESIA General endotracheal anesthesia. PREOPERATIVE DIAGNOSES 1. acute soft disc herniation resulting in severe myeloradiculopathy. POSTOPERATIVE DIAGNOSES same NAME OF OPERATIONS -- Anterior cervical discectomy and disc arthroplasty at C6-7 with placement of the LYSOGENEtronic Diagnostic Innovationsige LP arthroplasty device. -- Use of the operative microscope. -- Use of intraoperative neuromonitoring with transcranial motor evoked potentials and somatosensory evoked potentials. INDICATION FOR PROCEDURE Mello Herbert is a 55 y.o. male patient who presents with a large soft disc herniation resulting in severe myeloradiculopathy. He was found to have a fairly sizable disk herniation at C6-7. We offered a one-level anterior diskectomy and reconstruction with an arthroplasty device. The risks, benefits, and alternatives of this procedure were discussed with the patient at length as documented in mypreoperative clinic notes. DESCRIPTION OF PROCEDURE The patient was brought to the operating room and a time out was performed. Preoperative antibiotics were administered. The patient was induced and intubated by Anesthesia. He was positioned supine on the operating room table with all bony prominences padded. The anterior cervical region was marked fluoroscopically and then prepped and draped in the standard fashion. The neck was then incised in a transverse fashion in a skin crease, and I performed a standard Garcia-Leroy approach to the spine. I placed a Burlisher clamp on the medial border of the longus colli muscle at what I thought to beC6- 7, and I confirmed fluoroscopically that we were at the right level. Then I brought in the operative microscope. I swept a cuff of longus colli muscle off of the spine and placed our retractors, and we placed Humphrey pins into C6 and C7. I applied some very gentle distraction. We then incised the disc space and used curettes and rongeurs to remove the bulk of the disc material. There was a minor degree of spondylosis along the posterior margin of the uncinates, and I used a high-speed neela drill to address that and decompress the neural foramina bilaterally. Iensured that all the bone dust was irrigated away and waxed the bone edges with bone wax. I then transgressed the posterior longitudinal ligament and resected it with Kerrison punches in its entiretyalong with any remaining posterior osteophytes. I then confirmed that the nerve roots were nicely decompressed. Following this decompression, I obtained hemostasis and irrigated copiously. I then trialed an appropriately-sized Prestige LP implant, cut the rostral and caudal rails, and implanted thedisk arthroplasty device. I used fluoroscopy to guide the trial size selection and the positioning of the device. Once this was implanted, I again obtained hemostasis and confirmed good motion of thedevice. I then obtained hemostasis in the wound and copiously irrigated. I confirmed with final x-rays that everything was in good position. After this, I placed a drain and then closed the wound in layers using 3-0 Vicryl and 4-0 monocryl sutures followed by skin glue. The patient was then awakened from anesthesia. We had no difficulties with neuro monitoring throughout the case. Sponge, needle, and instrument counts were correct x2 at the end of the procedure. ATTENDING PRESENCE STATEMENT I was present and performed the entirety of the surgery from initial skin incision to the final skin closure. Clifford Concepcion MD * Brief Op Note - Michael Viveros PA - 02/16/2021 3:57 PM CDT Operative Progress Note Surgical Team: Surgeon(s) and Role: * Clifford Concepcion MD - Primary Anesthesiologist: James Suh MD HOOP EXPANDER: Sherry Castillo CRNA Torch Operator: Pablo Saucedo RN; Tootie Isaac RN; Valery Soto RN Torch Operator Relief: Jennifer Franks RN; Carolina Dixon RN Scrub: Aminah Casiano ST; Lynne Madsen ST FA: BETSY Liao, JUNIOR DATE OF SURGERY : 02/16/2021 Preoperative Diagnosis: Pre-op Diagnosis * Cervical disc disorder with myelopathy of mid-cervical region [M50.020] Postoperative Diagnosis: Post-op Diagnosis * Cervical disc disorder with myelopathy of mid-cervical region [M50.020] Procedure(s): Procedure(s) (LRB): CERVICAL ARTHROPLASTY C6-C7 disc arthroplasty (N/A) SPINAL CORD MONITORING (N/A) Operative Findings: dictated Estimated Blood Loss: 25ml Specimens: No specimen collected in procedure Implants: Implant Name Type Inv. Item Serial No. Aircraft Engine Cylinder Mechanic Lot No. LRB No. Used Action MEDTRONIC SOFAMOR DANEK [id number] PRESTIGE LP 6MM 16MM CERVICAL SPINE DISC INTERVERTEBRAL TITANIUM - [id number] Other - see comments MEDTRONIC SOFAMOR DANEK [id number] Prestige Lp 6mm 16mm Cervical Spine Disc Intervertebral Titanium Medtronic Inc [id number] N/A 1 Implanted Complications: None Condition on Discharge from the operating room was stable POLLO Moyer Date: 02/16/2021 Time: 5:20 PM No Resident involved on case documented in this encounter Plan of Treatment Upcoming Encounters Date Type Department Care Team (Late st Contact Info) Description 05/22/2024 10:45 AM CAR SEAT UPHOLSTERER Hospital Encounter [facility] [id number] [place] [address] Nikolay Boucher MD [address] [place] [address] 05/22/2024 10:45 AM CAR SEAT UPHOLSTERER - 05/22/2024 11:15 AM CAR SEAT UPHOLSTERER Surgery [facility] [address] [place] [address] Nikolay Boucher MD [address] [place] [address] EGD Scheduled Procedures Name Priority Associated Diagnoses Date/Ti me ESOPHAGOGASTRODUODENOSCOPY Crohn's disease of both small and large intestine with intestinal obstruction (HCC) 05/22/2024 10:45 AM CAR SEAT UPHOLSTERER documented as of this encounter Procedures Procedure Name Priority Date/Time Associated Diagnosis Comments EGFR Routine 02/17/2021 5:02 AM CDT CBC WITHOUT DIFFERENTIAL Routine 02/17/2021 5:02 AM CDT BASIC METABOLIC PANEL Routine 02/17/2021 5:02 AM CDT XR SPINE CERVICAL 2 OR 3 VIEWS IP Routine 02/16/2021 6:33 PM CDT FL FLUOROSCOPY < 1 HOUR IP Routine 02/16/2021 5:54 PM CDT SPINAL CORD MONITORING 02/16/2021 3:13 PM CDT Cervical disc disorder with myelopathy of mid-cervical region Case Notes Open, anterior, supine, osi-flat board, chin strap traction, koros/blackbelt, fiberoptic, fluoro, portable xrays, hao drill, special drill bit 3mm/4mm coarse bit, bone bundle collector sucker CERVICAL ARTHROPLASTY 02/16/2021 3:13 PM CDT Cervical disc disorder with myelopathy of mid-cervical region Case Notes Open, anterior, supine, osi-flat board, chin strap traction, koros/blackbelt, fiberoptic, fluoro, portable xrays, hao drill, special drill bit 3mm/4mm coarse bit, bone bundle collector sucker POC ISTAT Routine 02/16/2021 1:12 PM CDT B ABO / RH CONFIRMATION TESTING Routine 02/16/2021 1:10 PM CDT documented in this encounter Results * eGFR (02/17/2021 5:02 AM CDT) eGFR 47 mL/min/1.7 3 m2 [facility] Comment: Interpretive [...] interpretive data was last reviewed 2020 Blood 02/17/2021 5:02 AM CDT 02/17/2021 5:05 AM CDT us Michael Rosalino ABAD LAB BLOOD ORDERABLES Ibeth l Result [facility]IS[facility] [address] [facility]. [place] [address] * (ABNORMAL) CBC without differential (02/17/2021 5:02 AM CDT) Pathologist [facility] WBC 10.6(H) 3.8 - 9.9 K/cumm [facility] Hgb 12.6(L) 13.0 - 17.5 g/dL [facility] Hct 39.7 38.9 - 50.3 % [facility] Plt 185 150 - 400 K/cumm [facility] MPV 9.4 9.1 - 12.3 fL [facility] RBC 4.47 4.30 - 5.80 M/cumm [facility] MCV 88.8 81.3 - 96.4 fL [facility] MCH 28.2 27.1 - 33.3 pg [facility] MCHC 31.7(L) 32.3 - 35.7 g/dL [facility] RDW CV 13.3 11.1 - 14.9 % [facility] RDW SD 43.3 35.7 - 48.1 fL [facility] NRBC abs 0.00 0.00 - 0.01 K/cumm [facility] Blood 02/17/2021 5:02 AM CDT 02/17/2021 5:05 AM CDT us Michael ABAD LAB BLOOD ORDERABLES Ibeth l Result [facility] [address] [facility]. [place] [address] * (ABNORMAL) Basic metabolic panel (02/17/2021 5:02 AM CDT) [facility] Sodium 136 135 - 145 mmol/L [facility] Potassium, pl 4.2 3.3 - 4.9 mmol/L [facility] Chloride 99 97 - 110 mmol/L [facility] CO2 29 22 - 32 mmol/L [facility] Anion gap 8 2 - 15 mmol/L [facility] BUN 15 8 - 25 mg/dL [facility] Creatinine 1.60(H) 0.80 - 1.30 mg/dL [facility] Glucose 96 70 - 199 mg/dL [facility] Comment: Interpretive Data Fasting glucose >/= [...] interpretive data was last revised 2017. Calcium 8.6 8.5 - 10.3 mg/dL [facility] Blood 02/17/2021 5:02 AM CDT 02/17/2021 5:05 AM CDT us Michael ABAD LAB BLOOD ORDERABLES Ibeth l Result [facility]DA [facility]NIS[facility] [address] [facility]. Department [place] [address] * XR Spine Cervical 2 or 3 Views (02/16/2021 6:33 PM CDT) Anatomical Region Laterality Modality Spine N/A Computed Radiogr aphy 02/17/2021 6:27 AM CDT Impressions 02/17/2021 6:27 AM CDT New C6-7 disc arthroplasty in expected position. Electronically signed by: Rich Van M.D. Narrative 02/17/2021 6:27 AM CDT XR SPINE CERVICAL 2 OR 3 VIEWS HISTORY: ??Cervical disc herniation. FINDINGS: ??3 views of the cervical spine are obtained and compared with 02/09/2021. There is interval C6-7 discectomy and disc arthroplasty. Instrumentation is intact. Alignment is normal. Vertebral body heights are preserved. There is anterior soft tissue swelling and gas. An overlying drain is present. Procedure Note Rich Van MD - 02/17/2021 XR SPINE CERVICAL 2 OR 3 VIEWS [...] New C6-7 disc arthroplasty in expected position. Electronically signed by: Rich Van M.D. Michael ABAD IMG XR PROCEDURES Final R esult * FL Fluoroscopy < 1 Hour (02/16/2021 5:54 PM CDT) Narrative [email or web address] - 02/16/2021 5:54 PM CDT The images from this study are not interpreted by Radiology. ??Please refer to the physician's procedure / OR operative note. Clifford Concepcion MD IMG FLUOROSCOPY PROCEDURES Ibeth l Result Performing Organization Address City/[facility] Co de Phone Number [email or web address] * POC ISTAT (02/16/2021 1:12 PM CDT) Pathologist [facility] K POC 4.1 3.3 - 4.9 mmol/L [facility] Comment: Interpretive Data Unable to assess hemolysis. ??Invitro hemolysis causes falsely elevated potassium. Current Interpretive Data was last revised on 2020. POC Device Number [id number] [facility] P[facility] Performer [id number] [facility] Blood 02/16/2021 1:12 PM CDT 02/16/2021 1:12 PM CDT Result [facility] Clifford Concepcion MD LAB BLOOD ORDERABLES Final Resu lt Performing Organization Address [facility] Co de Phone Number [facility]DA [facility] [address] [facility]. [place] [address] * ABO / Rh Confirmation Testing (02/16/2021 1:10 PM CDT) Pathologist [facility] ABO/Rh Confirmation O Positive [facility] Blood 02/16/2021 1:10 PM CDT 02/16/2021 1:20 PM CDT Clifford Concepcion MD LAB BLOOD ORDERABLES Final Resu lt [facility]DA [facility] [address] [facility]. [place] [address] documented in this encounter Visit Diagnoses Diagnosis Cervical disc disorder with myelopathy of mid-cervical region- Primary Crohn's disease of both small and large intestine (HCC) Iron deficiency anemia due to chronic blood loss Iron deficiency anemia secondary to blood loss (chronic) HTN (hypertension) Unspecified essential hypertension Risk factors for obstructive sleep apnea Cervical disc disorder with myelopathy of mid-cervical region Crohn's disease of both small and large intestine with intestinal obstruction (HCC) documented in this encounter Admitting Diagnoses Diagnosis Cervical disc disorder with myelopathy of mid-cervical region documented in this encounter Administered Medications Inactive Administered Medications - up to 3 most recent administrations Medication Order MAR Action Action Date Dose Rate Site acetaminophen (TYLENOL) tablet 1,000 mg 1,000 mg, oral, Once, On Sat02/16/21 at 1315, For 1 dose, Pre-Op, Administer 60 minutes prior to surgery. Given 02/16/2021 12:53 PM CDT 1,000 mg amitriptyline (ELAVIL) tablet 10 mg 10 mg, oral, Nightly, First dose on Sat02/16/21 at 2100 Given 02/16/2021 8:12 PM CDT 10 mg amLODIPine (NORVASC) tablet 5 mg 5 mg, oral, Every morning, First dose on Sat02/17/21 at 0900 Given 02/17/2021 8:52 AM CDT 5 mg bupivacaine-EPINEPHrine (MARCAINE with EPI) 0.25 %-1:200,000 preservative free injection As needed, Starting on Sat02/16/21 at 1538, Intra-Op Given 02/16/2021 3:38 PM CDT 30 mL Right Neck cyclobenzaprine (FLEXERIL) tablet 5 mg 5 mg, oral, Every 8 hours PRN, muscle spasms, Starting on Sat02/16/21 at 1836 Given 02/16/2021 11:51 PM CDT 5 mg folic acid (FOLVITE) tablet 1 mg 1 mg, oral, Every morning, First dose on Sat02/17/21 at 0900 Given 02/17/2021 8:52 AM CDT 1 mg gabapentin (NEURONTIN) capsule 300 mg 300 mg, oral, Once, On 02/16/21 at 1315, For 1 dose, Pre-Op, Administer 60 minutes prior to surgery. Given 02/16/2021 12:53 PM CDT 300 mg hydroCHLOROthiazide (HYDRODIURIL) tablet 25 mg 25 mg, oral, 2 times daily (for diuretics), First dose (after last reorder) on Sana 02/16/21 at 1945, Indications: EdemaIndications:Edema Given 02/17/2021 8:52 AM CDT 25 mg Given 02/16/2021 8:11 PM CDT 25 mg HYDROmorphone (DILAUDID) injection 0.2 mg 0.2 mg, intravenous, Administer over 2 Minutes, Every 5 min PRN, 1st line for pain, Use as 1st line pain med for inpatients or for patients with extremely severe pain., Starting on Sana 02/16/21 at 1728, Phase I, Use as first line pain medication for inpatients. May use as first line medication for outpatients with extremely severe pain, history of opioid tolerance, or history of Chronic Pain with opioid tolerance, after consulting with Anesthesiologist. Inform anesthesiologist when dose reaches 2 mg for inpatients or 1 mg for outpatients., Indications: Chronic Pain with Opioid Tolerance, Pain, Severe Pain with Opioid ToleranceIndications:Chronic Pain with Opioid Tolerance,Pain,Severe Pain with Opioid Tolerance Given 02/16/2021 6:15 PM CDT 0.2 mg Given 02/16/2021 6:05 PM CDT 0.2 mg Given 02/16/2021 5:50 PM CDT 0.2 mg irbesartan (AVAPRO) tablet 300 mg 300 mg, oral, Every morning, First dose (after last reorder) on Sana 02/16/21 at 1945 Given 02/17/2021 8:52 AM C DT 300 mg Given 02/16/2021 8:12 PM CDT 300 mg Lactated Ringer's (LR) infusion 30 mL/hr, intravenous, [...] 1:47 PM CDT 30 mL/hr 30 mL/hr montelukast (SINGULAIR) tablet 10 mg 10 mg, oral, Nightly, First dose on Sat02/16/21 at 2100 Given 02/16/2021 8:12 PM CDT 10 mg ondansetron (ZOFRAN) injection 8 mg 8 mg, intravenous, Administer over 2 Minutes, Every 6 hours PRN, nausea, vomiting, if not tolerating PO, Starting on Sat02/16/21 at 1836, Indications: nausea and vomitingIndications:nausea and vomiting ondansetron ODT (ZOFRAN-ODT) disintegrating tablet 8 mg 8 mg, oral, Every 6 hours PRN, nausea, vomiting, Starting on Sat02/16/21 at 1836, Indications: nausea and vomitingIndications:nausea and vomiting oxyCODONE (ROXICODONE) tablet 5 mg 5 mg, oral, Every 4 hours PRN, 2nd line for pain, ok to repeat one tablet if having pain, Starting on Sat02/16/21 at 1836, Indications: PainIndications:Pain Given 02/17/2021 10:22 AM CDT 5 mg Given 02/17/2021 8:52 AM CDT 5 mg Given 02/17/2021 4:41 AM CDT [address] (PROTONIX) extended release tablet 40 mg 40 mg, oral, Daily, First dose on Sat02/17/21 at 0900, Do not crush, chew, cut, dissolve, open or otherwise manipulate tablet/capsule., Indications: Mucositis ProphylaxisIndications:Muc ositis Prophylaxis Given 02/17/2021 8:52 AM CDT 40 mg sodium chloride 0.9% irrigation As needed, Starting on Sana 02/16/21 at 1535, Intra-Op Given 02/16/2021 3:35 PM CDT 1,000 mL Surgical Site sodium chloride 0.9% with potassium chloride 20 mEq/L infusion (premix) 100 mL/hr, intravenous, Continuous, Starting on Sana 02/16/21 at 1915 New Bag 02/17/2021 4:44 AM CDT 100 mL/hr 100 mL/hr New Bag 02/16/2021 6:53 PM CDT 100 mL/hr 100 mL/hr sterile water irrigation As needed, Starting on Sana 02/16/21 at 1536, Intra-Op Given 02/16/2021 3:36 PM CDT 1,000 mL Surgical Site thrombin-recombinant 5,000 unit topical solution As needed, Starting on Sana 02/16/21 at 1537, Intra-Op Given 02/16/2021 3:37 PM CDT 5,000 Units Other (Comment) vancomycin (VANCOCIN) solution As needed, Starting on Sana 02/16/21 at 1536, Intra-Op Given 02/16/2021 3:36 PM CDT 1,000 mg Surgical Site vancomycin 1500 mg/250 mL in sodium chloride 0.9% (premix) 1,500 mg 1,500 mg, intravenous, Administer over 90 Minutes, Once, On Sana 02/16/21 at 1315, For 1 dose, Pre-Op, Administer within 120 minutes of incision., Indications: Prophylaxis, SurgicalIndications:Prophyl axis, Surgical New Bag 02/16/2021 2:28 PM CDT 1,500 mg documented in this encounter Discontinued Medications Medication Sig Discontinue Reason Start Date End Da te acetaminophen-codeine (TYLENOL with CODEINE #3) 300-30 mg per tablet Take 2 tablets by mouth every 8 (eight) hours as needed Stop Taking at Discharge 02/09/2018 02/17/2021 sulfamethoxazole-trime thoprim (BACTRIM DS) 800-160 mg per tablet Take 1 tablet by mouth as needed Stop Taking at Discharge 01/07/2021 02/17/2021 documented as of this encounter Active and Recently Administered Medications Times are shown in CDT. Scheduled Medication Order 02/15/2021 02/16/2021 02/17/2021 acetaminophen (TYLENOL) tablet 1,000 mg (COMPLETED) 1,000 mg, oral, Once, On Sana 02/16/21 at 1315, For 1 dose, Pre-Op, Administer 60 minutes prior to surgery. 1253 (Given - Provider: Yuliya Walker RN) adalimumab (HUMIRA (CF) PEN) 40 mg/0.4 mL injection 40 mg 40 mg, subcutaneous, Every 14 days, First dose on Sat02/27/21 at 0900, Refrigerate amitriptyline (ELAVIL) tablet 10 mg 10 mg, oral, Nightly, First dose on Sat02/16/21 at 2100 2011 (Given - Provider: Sarah Woods RN) amLODIPine (NORVASC) tablet 5 mg 5 mg, oral, Every morning, First dose on Sat02/17/21 at 0900 0852 (Given - Provid er: Arlene Watson RN) ceFAZolin (ANCEF) 1 gram/10 mL in sterile water (premix) 2,000 mg (COMPLETED) 2,000 mg, intravenous, at 400 mL/hr, Administer over 3 Minutes, Once, On Sat02/16/21 at 1315, For 1 dose, Pre-Op, Administer within 60 minutes of incision., Indications: Prophylaxis, Surgical 1540 (Given - Provider: Sherry Castillo CRNA) docusate sodium (COLACE) capsule 100 mg 100 mg, oral, 2 times daily, First dose on Sat02/16/21 at 2100, Hold for diarrhea, Indications: constipation 2011 (Not Given - Provider: Sarah Woods RN - Reason: Patient/family refused) 0853 (Not Given - Provider: Arlene Watson RN - Reason: Patient/family refused) folic acid (FOLVITE) tablet 1 mg 1 mg, oral, Every morning, First dose on Sat02/17/21 at 0900 0852 (Given - Provid er: Arlene Watson RN) gabapentin (NEURONTIN) capsule 300 mg (COMPLETED) 300 mg, oral, Once, On Sat02/16/21 at 1315, For 1 dose, Pre-Op, Administer 60 minutes prior to surgery. 1253 (Given - Provider: Yuliya Walker RN) hydroCHLOROthiazide (HYDRODIURIL) tablet 25 mg 25 mg, oral, 2 times daily (for diuretics), First dose (after last reorder) on Sat02/16/21 at 1945, Indications: Edema 2010 (Given - Provider: Sarah Woods RN) 0852 (Given - Provider: Arlene Watson RN) irbesartan (AVAPRO) tablet 300 mg 300 mg, oral, Every morning, First dose (after last reorder) on Sat02/16/21 at 1945 2011 (Given - Provider: Sarah M. Chuck, RN) 0852 (Given - Provider: Arlene Watson RN) montelukast (SINGULAIR) tablet 10 mg 10 mg, oral, Nightly, First dose on Sana 02/16/21 at 2100 2011 (Given - Provider: Sarah Woods, GUEVARA) pantoprazole DR (PROTONIX) extended release tablet 40 mg 40 mg, oral, Daily, First dose on Sat02/17/21 at 0900, Do not crush, chew, cut, dissolve, open or otherwise manipulate tablet/capsule., Indications: Mucositis Prophylaxis 0852 (Given - Provid er: Arlene Watson RN) vancomycin 1500 mg/250 mL in sodium chloride 0.9% (premix) 1,500 mg (COMPLETED) 1,500 mg, intravenous, Administer over 90 Minutes, Once, On Sana 02/16/21 at 1315, For 1 dose, Pre-Op, Administer within 120 minutes of incision., Indications: Prophylaxis, Surgical 1428 (New Bag - Provider: Corine Bliss RN) Continuous Medication Order 02/15/2021 02/16/2021 02/17/2021 Lactated Ringer's (LR) infusion (CANCELED) 30 mL/hr, intravenous, Continuous, Starting on Sana 02/16/21 at 1315, For 4 hours, Pre-Op, Use a 500 ml bag for End Stage Renal Disease Patients. Discontinue if fluid still running once patient arrives to floor. 1347 (New Bag - Provider: Yuliya Walker RN)1507 (Rate/Dose Verify - Provider: Sherry Castillo CRNA)1723 (Rate/Dose Change - Provider: Sherry Castillo CRNA) sodium chloride 0.9% with potassium chloride 20 mEq/L infusion (premix) 100 mL/hr, intravenous, Continuous, Starting on Sana 02/16/21 at 1915 1853 (New Bag - Provider: Arlene Watson RN) 0444 (New Bag - Provider: Sarah Woods RN) PRN Medication Order 02/15/2021 02/16/2021 02/17/2021 acetaminophen (TYLENOL) tablet 650 mg 650 mg, oral, Every 4 hours PRN, 1st line for pain, fever, fever greater than 38.3 C, Starting on Sana 02/16/21 at 1836, Indications: Fever, Pain [facility] Sarah Woods, GUEVARA) ALPRAZolam (XANAX) tablet 0.5 mg 0.5 mg, oral, 2 times daily PRN, anxiety, Starting on Sana 02/16/21 at 1836 bupivacaine-EPINEPHrine (MARCAINE with EPI) 0.25 %-1:200,000 preservative free injection (CANCELED) As needed, Starting on Sat02/16/21 at 1538, Intra-Op 1538 (Given - Provider: Clifford Concepcion MD) cyclobenzaprine (FLEXERIL) tablet 5 mg 5 mg, oral, Every 8 hours PRN, muscle spasms, Starting on Sat02/16/21 at 1836 2351 (Given - Provider: Sarah Woods, GUEVARA) diphenoxylate-atropine (LOMOTIL) 2.5-0.025 mg per tablet 1 tablet 1 tablet, oral, 4 times daily PRN, diarrhea, Starting on Sat02/16/21 at 1836 HYDROmorphone (DILAUDID) injection 0.2 mg (CANCELED) 0.2 mg, intravenous, Administer over 2 Minutes, Every 5 min PRN, 1st line for pain, Use as 1st line pain med for inpatients or for patients with extremely severe pain., Starting on Sat02/16/21 at 1728, Phase I, Use as first line pain medication for inpatients. May use as first line medication for outpatients with extremely severe pain, history of opioid tolerance, or history of Chronic Pain with opioid tolerance, after consulting with Anesthesiologist. Inform anesthesiologist when dose reaches 2 mg for inpatients or 1 mg for outpatients., Indications: Chronic Pain with Opioid Tolerance, Pain, Severe Pain with Opioid Tolerance 1750 (Given - Provider: Camila Kraft RN)1805 (Given - Provider: Camila Kraft RN)1815 (Given - Provider: Camila Kraft RN) ondansetron (ZOFRAN) injection 8 mg(Linked Group 1) 8 mg, intravenous, Administer over 2 Minutes, Every 6 hours PRN, nausea, vomiting, if not tolerating PO, Starting on Sana 02/16/21 at 1836, Indications: nausea and vomiting ondansetron ODT (ZOFRAN-ODT) disintegrating tablet 8 mg(Linked Group 1) 8 mg, oral, Every 6 hours PRN, nausea, vomiting, Starting on Sat02/16/21 at 1836, Indications: nausea and vomiting oxyCODONE (ROXICODONE) tablet 5 mg 5 mg, oral, Every 4 hours PRN, 2nd line for pain, ok to repeat one tablet if having pain, Starting on Sat02/16/21 at 1836, Indications: Pain 1856 (Given - Provider: Arlene Watson, RN)2020 (Given - Provider: Sarah Woods, RN)2348 (Given - Provider: Sarah Woods, RN) 0053 (Given - Provider: Sarah Woods, RN)0441 (Given - Provider: Sarah Woods, RN)0852 (Given - Provider: Arlene Watson, RN)1022 (Given - Provider: Arlene Watson, RN) polyethylene glycol (MIRALAX) packet 17 g 17 g, oral, Daily PRN, constipation, Starting on Sat02/16/21 at 1836, Indications: constipation sodium chloride 0.9% irrigation (CANCELED) As needed, Starting on Sana 02/16/21 at 1535, Intra-Op 1535 (Given - Provider: Clifford Concepcion MD) sterile water irrigation (CANCELED) As needed, Starting on Sana 02/16/21 at 1536, Intra-Op 1536 (Given - Provider: Clifford Concepcion MD) thrombin-recombinant 5,000 unit topical solution (CANCELED) As needed, Starting on Sana 02/16/21 at 1537, Intra-Op 1537 (Given - Provider: Clifford Concepcion MD - Comment: soaked in cottonoids for hemostasis) vancomycin (VANCOCIN) solution (CANCELED) As needed, Starting on Sat02/16/21 at 1536, Intra-Op 1536 (Given - Provider: Clifford Concepcion MD - Comment: in 1 liter of normal saline for irrigation) zolpidem (AMBIEN) tablet 5 mg 5 mg, oral, Nightly PRN, sleep, Starting on Sat02/16/21 at 1836, Indications: Sleep-Onset Insomnia Linked Groups Order Group 1: ondansetron ODT (ZOFRAN-ODT) disintegrating tablet 8 mgJump to med 8 mg, oral, Every 6 hours PRN, nausea, vomiting, Starting on Sana 02/16/21 at 1836, Indications: nausea and vomiting Or ondansetron (ZOFRAN) injection 8 mgJump to med 8 mg, intravenous, Administer over 2 Minutes, Every 6 hours PRN, nausea, vomiting, if not tolerating PO, Starting on Sana 02/16/21 at 1836, Indications: nausea and vomiting documented in this encounter Orders Medications Ordered That Leon ht Not Have Been Administered Count Last Ordered Date First Ordered Date acetaminophen (TYLENOL) tablet 500 mg 1 acetaminophen (TYLENOL) tablet 650 mg 1 adalimumab (HUMIRA (CF) PEN) 40 mg/0.4 mL injection 40 mg 1 02/16/2021 ALPRAZolam (XANAX) tablet 0.5 mg 1 02/17/20 ceFAZolin (ANCEF) 1 gram/10 mL in sterile water (premix) 2,000 mg 1 02/16/2021 cyclobenzaprine (FLEXERIL) tablet 5 mg 1 diphenhydrAMINE (BENADRYL) i njection 12.5 mg 1 02/16/2021 diphenoxylate-atropine (LOMO TIL) 2.5-0.025 mg per tablet 1 tablet 1 02/16/2021 docusate sodium (COLACE) capsule 100 mg 1 0 02/16/2021 famotidine (PEPCID) injection 20 mg 1 02/16 fentaNYL (SUBLIMAZE) preserv ative free injection 25 mcg 1 02/16/2021 hydrALAZINE (APRESOLINE) injection 5 mg 1 0 02/16/2021 hydroCHLOROthiazide (HYDRODI URIL) tablet 25 mg 1 02/16/2021 HYDROcodone-acetaminophen (N ORCO) 5-325 mg per tablet 1 tablet 1 02/16/2021 irbesartan (AVAPRO) tablet 300 mg 1 021 labetaloL (NORMODYNE,TRANDAT E) injection 5 mg 1 02/16/2021 Lactated Ringer's (LR) infusion 1 meperidine (DEMEROL) preserv ative free injection 12.5 mg 1 02/16/2021 naloxone (NARCAN) 0.4 mg/mL injection 0.04-0.4 mg 1 02/16/2021 ondansetron (ZOFRAN) injection 4 mg 1 02/16 ondansetron (ZOFRAN) injection 8 mg 1 02/16 ondansetron ODT (ZOFRAN-ODT) disintegrating tablet 8 mg 1 02/16/2021 polyethylene glycol (MIRALAX) packet 17 g 1 02/16/2021 prochlorperazine (COMPAZINE) injection 5 mg 1 02/16/2021 scopolamine patch 72 hour 1 patch 1 021 sodium chloride 0.9% flush 0.5-20 mL 1 01/26 zolpidem (AMBIEN) tablet 5 mg 1 02/16/2021 CORE MEASURES Count Last Ordered Date First Ord ered Date REASON FOR NO VTE PROPHYLAXIS AT ADMISSION 1 02/16/2021 documented in this encounter Care Teams It Help Desk Technician Relationship Specialty Start Date End Date Tip Armenta MD [address] [address] PCP - General Family Medicine 03/18/19 Eleanor Ramon MD [address] [place] [address] Medical Oncologist/Physics Teacher Hematology 07/12/20 documented as of this encounter
--- OUTSIDE RECORDS SUMMARY | 2024-05-18 22:15 | XMS_ITS | Encounter Summary ---
Author Organization [facility] Address [address] [facility] [address] [place] [address] Phone Care Team Providers Care Unified Communications Engineer Name Role Phone Tip Armenta MD Primary Care Provider [phone] Eleanor Ramon MD Unavailable Reason for Visit * Reason Comments Wound Check Encounter Details Date Type Department Care Team (Late st Contact Info) Description 03/03/2021 11:00 AM CDT Clinical Support [facility] [address] 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 Gender Identity Not on file Sexual Orientation Not on file documented as of this encounter Plan of Treatment Upcoming Encounters Date Type Department Care Team (Late st Contact Info) Description 05/22/2024 10:45 AM PROCESS ENGINEERING INTERN Hospital Encounter [facility] [id number] [address] Nikolay Boucher MD [address] [place] [address] 05/22/2024 10:45 AM PROCESS ENGINEERING INTERN - 05/22/2024 11:15 AM PROCESS ENGINEERING INTERN Surgery [facility] [address] [address] Nikolay Boucher MD [address] [place], [place] [id number] EGD Scheduled Procedures Name Priority Associated Diagnoses Date/Ti ok ESOPHAGOGASTRODUODENOSCOPY Crohn's disease of both small and large intestine with intestinal obstruction (HCC) 05/22/2024 10:45 AM PROCESS ENGINEERING INTERN documented as of this encounter Visit Diagnoses Not on filedocumented in this encounter Discontinued Medications Medication Sig Discontinue Reason Start Date End Da te meloxicam (MOBIC) 15 mg tablet Take 15 mg by mouth every morning Therapy completed 01/20/2021 03/03/2021 mupirocin (BACTROBAN) 2 % ointment APPLY TOPICALLY TO THE AFFECTED AREA TWICE DAILY Therapy completed 11/07/2020 03/03/2021 documented as of this encounter Care Teams Unified Communications Engineer Relationship Specialty Start Date End Date Tip Armenta MD [address] [address] PCP - General Family Medicine 03/18/19 Eleanor Ramon MD [address] [place] [address] Medical Oncologist/Seafood Manager Hematology 07/12/20 documented as of this encounter
--- OUTSIDE RECORDS SUMMARY | 2024-05-18 22:15 | XMS_ITS | Encounter Summary ---
Author Organization [facility] Address [address] [facility] [address] [place] [address] Phone Care Team Providers Care Fitter / Welder Name Role Phone Tip Armenta MD Primary Care Provider [phone] Eleanor Ramon MD Unavailable [phone] Reason for Referral * MRI/CAT/PET Scan (Routine) - Closed Specialty Diagnoses / Procedures Referred By Contac t Referred To Contact Radiology Diagnoses 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 Procedures MRI Thoracic Spine WO Contrast Clifford Concepcion MD [address] [place] [address] Phone: tel: fax: [facility] [address] [place] [address] Referral ID Status Reason Start Date Expiration Date Visits Re quested Visits Authorized [id number] Closed 02/09/2021 03/11/2022 1 1 Encounter Details Date Type Department Care Team (Late st Contact Info) Description 02/09/2021 Orders Only [facility] Neurosurgery [address] [facility] Medical Office Building [address] [place] [address] Clifford Concepcion MD [address] [place] [id number] 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 (Primary Dx) Social History Tobacco Use Types [...] on file Legal Sex Male 1:20 AM [employer] Gender Identity Not on file Sexual Orientation Not on file documented as of this encounter Plan of Treatment Upcoming Encounters Date Type Department Care Team (Late st Contact Info) Description 05/22/2024 10:45 AM [employer] Hospital Encounter [facility] [address] [place] [address] Nikolay Boucher MD [address] [facility] [place] [address] 05/22/2024 10:45 AM [employer] - 05/22/2024 11:15 AM [employer] Surgery [facility] [address] [place] [address] Nikolay Boucher MD [address] [place] [address] EGD Scheduled Procedures Name Priority Associated Diagnoses Date/Ti pr ESOPHAGOGASTRODUODENOSCOPY Crohn's disease of both small and large intestine with intestinal obstruction (HCC) 05/22/2024 10:45 AM [employer] documented as of this encounter Results * MRI Thoracic Spine WO Contrast (02/10/2021 10:15 AM CDT) Anatomical Region Laterality Modality Spine N/A Magnetic Resonan ce 02/10/2021 11:0 3 AM CDT Impressions 02/10/2021 2:48 PM CDT Mild degenerative changes of the thoracic spine as described in detail above. Dictated by: Oswald Sen MD The radiology attending physician has personally reviewed this study, and had reviewed and/or edited this written report and agrees with it. Electronically signed by: Delonte Long M.D. Narrative 02/10/2021 2:48 PM CDT EXAMINATION: Magnetic resonance imaging (MRI) of the thoracic spine without contrast HISTORY: Thoracic spine pain TECHNIQUE: Multiplanar multi-weighted MRI of the thoracic spine was performed without intravenous contrast using the standard thoracic spine protocol. COMPARISON: ??None available. FINDINGS: The alignment of the thoracic spine is normal. Vertebral bodies demonstrate normal signal intensity on all sequences. There are no compression fractures. The spinal cord demonstrates normal signal intensity on all sequences. Intervertebral disks have normal height and signal intensity. ??Multilevel degenerative changes with minimal disc bulge at T6-T7, T8-T9, and T10-T11 levels. ??No high-grade canal or foraminal stenosis. Procedure Note Delonte Long MD - 02/10/2021 EXAMINATION: Magnetic resonance imaging (MRI) of the thoracic spine without contrast HISTORY: Thoracic spine pain TECHNIQUE: Multiplanar multi-weighted MRI of the thoracic spine was performed without intravenous contrast using the standard thoracic spine protocol. COMPARISON: None available. FINDINGS: The alignment of the thoracic spine is normal. Vertebral bodies demonstrate normal signal intensity on all sequences. There are no compression fractures. The spinal cord demonstrates normal signal intensity on all sequences. Intervertebral disks have normal height and signal intensity. Multilevel degenerative changes with minimal disc bulge at T6-T7, T8-T9, and T10-T11 levels. No high-grade canal or foraminal stenosis. IMPRESSION: Mild degenerative changes of the thoracic spine as described in detail above. Dictated by: Oswald Sen MD The radiology attending physician has personally reviewed this study, and had reviewed and/or edited this written report and agrees with it. Electronically signed by: Delonte Long M.D. Clifford Concepcion MD IMG MRI PROCEDURES Final Result documented in this encounter Visit Diagnoses Diagnosis 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- Primary 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 Crohn's disease of both small and large intestine with intestinal obstruction (HCC) documented in this encounter Care Teams Fitter / Welder Relationship Specialty Start Date End Date Tip Armenta MD [address] [address] PCP - General Family Medicine 03/18/19 Eleanor Ramon MD [address] [address] [place] [address] Medical Oncologist/Polygraph Examiner Hematology 07/12/20 documented as of this encounter
--- OUTSIDE RECORDS SUMMARY | 2024-05-18 22:15 | XMS_ITS | Encounter Summary ---
Author Organization [facility] Healthcare Address [address] [place] [address] Care Team Providers Care Campus Safety Officer Name Role Phone Tip Armenta MD Primary Care Provider [phone] Eleanor Ramon MD Unavailable [phone] Reason for Visit * MRI/CAT/PET Scan (Routine) - Closed Specialty Diagnoses / Procedures Referred By Contac t Referred To Contact Radiology Diagnoses 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 Procedures MRI Thoracic Spine WO Contrast Clifford Concepcion MD [address] [place] [address] Phone: tel: fax: [address] [address] Referral ID Status Reason Start Date Expiration Date Visits Re quested Visits Authorized [id number] Closed 02/09/2021 03/11/2022 1 1 Encounter Details Date Type Department Care Team (Latest Contact Info) Description 02/10/2021 10:15 AM CDT Ancillary Procedure [facility] Mobile MRI [address] [place], [place] [id number] Clifford Concepcion MD [address] [place] [address] Cervical disc disorder with myelopathy of cervicothoracic [...] on file Legal Sex Male 1:20 AM TEST CENTER MANAGER Gender Identity Not on file Sexual Orientation Not on file documented as of this encounter Discharge Disposition Disposition Code Departure Means Destination Discharge to home or self care documented in this encounter Plan of Treatment Upcoming Encounters Date Type Department Care Team (Late st Contact Info) Description 05/22/2024 10:45 AM TEST CENTER MANAGER Hospital Encounter [facility] Endoscopy [address] [place] [address] Nikolay Boucher MD [address] [place] [address] 05/22/2024 10:45 AM TEST CENTER MANAGER - 05/22/2024 11:15 AM TEST CENTER MANAGER Surgery [facility] Endoscopy [address] [place] [address] Nikolay Boucher MD [address] [place] [address] EGD Scheduled Procedures Name Priority Associated Diagnoses Date/Ti ma ESOPHAGOGASTRODUODENOSCOPY Crohn's disease of both small and large intestine with intestinal obstruction (HCC) 05/22/2024 10:45 AM TEST CENTER MANAGER documented as of this encounter Procedures Procedure Name Priority Date/Time Associated Diagnosis Comments MRI THORACIC SPINE WO CONTRAST Schedule Routine, Read Routine (OP Routine) 02/10/2021 10:15 AM CDT 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 documented in this encounter Results * MRI Thoracic Spine [...] by: Delonte Long M.D. Clifford Concepcion MD IM MRI PROCEDURES Final Result documented in this encounter Visit Diagnoses Diagnosis 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 Crohn's disease of both small and large intestine with intestinal obstruction (HCC) documented in this encounter Care Teams Campus Safety Officer Relationship Specialty Start Date End Date Tip Armenta MD [address] [address] PCP - General Family Medicine 03/18/19 Eleanor Ramon MD [facility] S [facility] [address] [place] [address] Medical Oncologist/Catalogue Illustrator Hematology 07/12/20 documented as of this encounter
--- OUTSIDE RECORDS SUMMARY | 2024-05-18 22:15 | XMS_ITS | Encounter Summary ---
Author Organization [facility] Healthcare Address [address] [place] [address] Care Team Providers Care Rounding Machine Operator Name Role Phone Tip Armenta MD Primary Care Provider [phone] Eleanor Ramon MD Unavailable [phone] Encounter Details Date Type Department Care Team (Latest Contact Info) Description 02/16/2021 6:09 PM CDT - 02/16/2021 11:59 PM CDT Hospital Encounter [facility] Imaging [address] [facility] [place] [address] Discharge Disposition: Discharge to home or self [...] on file Legal Sex Male 1:20 AM SAMPLE MAKER ORIGINAL Gender Identity Not on file Sexual Orientation Not on file documented as of this encounter Medications at Time of Discharge ALPRAZolam (XANAX) 1 mg tablet TK / [...] by mouth nightly as needed 5 12/13/2017 acetaminophen-code ine (TYLENOL with CODEINE #3) 300-30 mg per tablet Take 2 tablets by mouth every 8 (eight) hours as needed 5 02/09/2018 1 adalimumab (Humira,CF, Pen) 40 mg/0.4 mL pen injector kitIndications:Zumba Instructor hn's disease of small and large intestines [...] needed for pain 56 tablet 02/16/2021 1 sulfamethoxazole-t rimethoprim (BACTRIM DS) 800-160 mg per tablet Take 1 tablet by mouth as needed 01/07/2021 1 vit A-vit Q-hmjz-quscvdps 15 mg lozenge Take 1 tablet by mouth as needed 10/12/2016 2 documented as of this encounter Discharge Disposition Disposition Code Departure Means Destination Discharge to home or self care documented in this encounter Plan of Treatment Upcoming Encounters Date Type Department Care Team (Late st Contact Info) Description 05/22/2024 10:45 AM SAMPLE MAKER ORIGINAL Hospital Encounter [facility] Endoscopy [address] [place] [address] Nikolay Boucher MD [address] [place] [address] 05/22/2024 10:45 AM SAMPLE MAKER ORIGINAL - 05/22/2024 11:15 AM SAMPLE MAKER ORIGINAL Surgery [facility] Endoscopy [address] [place] [address] Nikolay Boucher MD [address] [place] [address] EGD Scheduled Procedures Name Priority Associated Diagnoses Date/Ti me ESOPHAGOGASTRODUODENOSCOPY Crohn's disease of both small and large intestine with intestinal obstruction (HCC) 05/22/2024 10:45 AM SAMPLE MAKER ORIGINAL documented as of this encounter Procedures Procedure Name Priority Date/Time Associated Diagnosis Comments XR SPINE CERVICAL 2 OR 3 VIEWS IP Routine 02/16/2021 6:33 PM CDT documented in this encounter Results * XR [...] position. Electronically signed by: Rich Van M.D. us Michael Rosalino ABAD IMG XR PROCEDURES Final R esult documented in this encounter Visit Diagnoses Not on filedocumented in this encounter Care Teams Rounding Machine Operator Relationship Specialty Start Date End Date Tip Armenta MD [address] [address] PCP - General Family Medicine 03/18/19 Eleanor Ramon MD [address] [facility] [address] [place] [address] Medical Oncologist/Tape Edge Machine Operator Hematology 07/12/20 documented as of this encounter
--- OUTSIDE RECORDS SUMMARY | 2024-05-18 22:15 | XMS_ITS | Encounter Summary ---
Author Organization [facility] Address [address] [facility] [address] [place] [address] Phone Care Team Providers Care Telesales Advisor Name Role Phone Tip Armenta MD Primary Care Provider [phone] Eleanor Ramon MD Unavailable [phone] Encounter Details Date Type Department Care Team (Late st Contact Info) Description 02/09/2021 Orders Only [facility] Neurosurgery [address] [facility] Medical Office [address] [place] [address] Clifford Concepcion MD [address] [place] [address] Cervical disc disorder with myelopathy [...] on file Legal Sex Male 1:20 AM STATISTICAL ASSISTANT Gender Identity Not on file Sexual Orientation Not on file documented as of this encounter Plan of Treatment Upcoming Encounters Date Type Department Care Team (Late st Contact Info) Description 05/22/2024 10:45 AM STATISTICAL ASSISTANT Hospital Encounter [facility] Endoscopy [address] [place] [address] Nikolay Boucher MD [address] [place] [address] 05/22/2024 10:45 AM STATISTICAL ASSISTANT - 05/22/2024 11:15 AM STATISTICAL ASSISTANT Surgery [facility] Endoscopy [address] [place] [address] Nikolay Boucher MD [address] [place] [address] EGD Scheduled Procedures Name Priority Associated Diagnoses Date/Ti me ESOPHAGOGASTRODUODENOSCOPY Crohn's disease of both small and large intestine with intestinal obstruction (HCC) 05/22/2024 10:45 AM STATISTICAL ASSISTANT documented as of this encounter Visit Diagnoses Diagnosis 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- Primary Crohn's disease of both small and large intestine with intestinal obstruction (HCC) documented in this encounter Care Teams Telesales Advisor Relationship Specialty Start Date End Date Tip Armenta MD [address] [address] PCP - General Family Medicine 03/18/19 Eleanor Ramon MD [address] [place] [address] Medical Oncologist/Slubber Machine Operator Hematology 07/12/20 documented as of this encounter
--- OUTSIDE RECORDS SUMMARY | 2024-05-18 22:15 | XMS_ITS | Encounter Summary ---
Author Organization [facility] of [facility] Address [address] [facility] [address] [place] [address] Phone Care Team Providers Care Mat Cutter Name Role Phone Tip Armenta MD Primary Care Provider [phone] Eleanor Ramon MD Unavailable [phone] Encounter Details Date Type Department Care Team (Late st Contact Info) Description 02/09/2021 Telephone [facility] [address] [facility] Medical Office Building [address] [place] [address] Christa Brenner NP [address] [place] [address] Social History Tobacco Use Types [...] on file Legal Sex Male 1:20 AM CATERING BARISTA Gender Identity Not on file Sexual Orientation Not on file documented as of this encounter Miscellaneous Notes * Telephone Encounter - Mo Jerry MA - 02/10/2021 2:14 PM CDT Auth done * Telephone Encounter - Gabriella Chong MA - 02/09/2021 12:40 PM CDT Per JOSEPH Dempsey: Charted under Gabriella Sanchez. Pt is set for MRI of Thoracic Spine WO Contrast at the [facility] location on 02/10/21 @ 10:15 AM arrivaltime 9:45 AM. Pt called and notified of date, time, location. Pt agreed. FOR MO: Pt is scheduled for surgery on 02/16/[address] Concepcion. Please obtain Prior Auth for MRI, which is scheduled for 02/10/21 @ 10:15 AM. Please advise. * Telephone Encounter - Gabriella Chong MA - 02/09/2021 12:36 PM CDT Done! * Telephone Encounter - Christa Brenner RN - 02/09/2021 12:22 PM CDT Please schedule 2 week and 6 week post op appointments documented in this encounter Plan of Treatment Upcoming Encounters Date Type Department Care Team (Late st Contact Info) Description 05/22/2024 10:45 AM CATERING BARISTA Hospital Encounter [facility] Endoscopy [address] [address] Nikolay Boucher MD [address] [place] [address] 05/22/2024 10:45 AM CATERING BARISTA - 05/22/2024 11:15 AM CATERING BARISTA Surgery [facility] Endoscopy [address] [address] Nikolay Boucher MD [address] [place] [address] EGD Scheduled Procedures Name Priority Associated Diagnoses Date/Ti me ESOPHAGOGASTRODUODENOSCOPY Crohn's disease of both small and large intestine with intestinal obstruction (HCC) 05/22/2024 10:45 AM CATERING BARISTA documented as of this encounter Visit Diagnoses Not on filedocumented in this encounter Care Teams Mat Cutter Relationship Specialty Start Date End Date Tip Armenta MD [address] [address] PCP - General Family Medicine 03/18/19 Eleanor Ramon MD [address] [place] [address] Medical Oncologist/Parking Manager Hematology 07/12/20 documented as of this encounter
--- OUTSIDE RECORDS SUMMARY | 2024-05-18 22:15 | XMS_ITS | Encounter Summary ---
Author Organization [facility] of [facility] Address [address] [place] [address] Phone Care Team Providers Care Mortgage Advisor Name Role Phone Tip Armenta MD Primary Care Provider [phone] Eleanor Ramon MD Unavailable [phone] Encounter Details Date Type Department Care Team (Late st Contact Info) Description 02/14/2021 Orders Only [facility] Neurosurgery [address] [facility] Medical Office Building [address] [place] [address] Christa Brenner NP [address] [place] [address] Social History Tobacco Use Types [...] on file Legal Sex Male 1:20 AM CALL CENTER REPRESENTATIVE Gender Identity Not on file Sexual Orientation Not on file documented as of this encounter Ordered Prescriptions Prescription Sig Dispense Quantity Refills Last Filled Start Date End Date mupirocin (mupirocin) 2 % ointment Apply to each nostril 2 (two) times a day Use pea size amount in each nostril twice daily for five (5) days. After application, press sides of nose together and gently massage. 10 g 02/14/2021 documented in this encounter Plan of Treatment Upcoming Encounters Date Type Department Care Team (Late st Contact Info) Description 05/22/2024 10:45 AM CALL CENTER REPRESENTATIVE Hospital Encounter [facility] Endoscopy [address] [place] [address] Nikolay Boucher MD [address] [place] [address] 05/22/2024 10:45 AM CALL CENTER REPRESENTATIVE - 05/22/2024 11:15 AM CALL CENTER REPRESENTATIVE Surgery [facility] Endoscopy [address] [place] [address] Nikolay Boucher MD [address] [place] [address] EGD Scheduled Procedures Name Priority Associated Diagnoses Date/Ti me ESOPHAGOGASTRODUODENOSCOPY Crohn's disease of both small and large intestine with intestinal obstruction (HCC) 05/22/2024 10:45 AM CALL CENTER REPRESENTATIVE documented as of this encounter Visit Diagnoses Not on filedocumented in this encounter Care Teams Mortgage Advisor Relationship Specialty Start Date End Date Tip Armenta MD [address] [address] PCP - General Family Medicine 03/18/19 Eleanor Ramon MD [address] [place], [place] [address] Medical Oncologist/Order Tracer Hematology 07/12/20 documented as of this encounter
--- OUTSIDE RECORDS SUMMARY | 2024-05-18 22:15 | XMS_ITS | Encounter Summary ---
Author Organization [facility] Address [address] [facility] [address] [place] [address] Phone Care Team Providers Care Business Development Recruiter Name Role Phone Tip Armenta MD Primary Care Provider [phone] Eleanor Ramon MD Unavailable [phone] Reason for Referral * Diagnostic Imaging (Routine) - Closed Specialty Diagnoses / Procedures Referred By Contac t Referred To Contact Diagnoses Neck pain Procedures XR Spine Cervical W Flexion And Extension 6 or More Views Clifford Concepcion MD [address] [place] [address] Phone: tel: fax: [address] [address] Referral ID Status Reason Start Date Expiration Date Visits Re quested Visits Authorized [id number] Closed 02/06/2021 03/08/2022 1 1 Encounter Details Date Type Department Care Team (Late st Contact Info) Description 02/06/2021 Orders Only [facility] Neurosurgery [address] [facility] Medical Office Building [address] [place] [address] Clifford Concepcion MD [address] [place] [address] Neck pain (Primary Dx) Social History Tobacco Use Types Packs/Day Years Used Date Smoking Tobacco: Never Smokeless Tobacco: Never AUDIT-C Answer Date Recorded Q1: How often do you have a drink containing alc ohol? Never 12/30/2020 Average Number of Drinks Not on file 021 Frequency of Binge Drinking Not on file 10/2020 Sex and Gender Information Value Date Recorded Sex Assigned at Not on file Legal Sex Male 1:20 AM CINDER CRUSHER OPERATOR Gender Identity Not on file Sexual Orientation Not on file documented as of this encounter Plan of Treatment Upcoming Encounters Date Type Department Care Team (Late st Contact Info) Description 05/22/2024 10:45 AM CINDER CRUSHER OPERATOR Hospital Encounter [facility] Endoscopy [address] [place] [address] Nikolay Boucher MD [address] [place] [address] 05/22/2024 10:45 AM CINDER CRUSHER OPERATOR - 05/22/2024 11:15 AM CINDER CRUSHER OPERATOR Surgery [facility]oscopy [address] [place] [address] Nikolay Boucher MD [address] [place] [address] EGD Scheduled Procedures Name Priority Associated Diagnoses Date/Ti tn ESOPHAGOGASTRODUODENOSCOPY Crohn's disease of both small and large intestine with intestinal obstruction (HCC) 05/22/2024 10:45 AM CINDER CRUSHER OPERATOR documented as of this encounter Results * [...] it. Electronically signed by: Ekaterina Goldstein MD [facility] 02/09/2021 4:59 PM CDT EXAMINATION: XR SPINE [...] Electronically signed by: Ekaterina Goldstein MD Result [facility] Clifford Concepcion MD IMG XR PROCEDURES Final Result documented in this encounter Visit Diagnoses Diagnosis Neck pain- Primary Cervicalgia Neck pain Cervicalgia Crohn's disease of both small and large intestine with intestinal obstruction (HCC) documented in this encounter Care Teams Business Development Recruiter Relationship Specialty Start Date End Date Tip Armenta MD [address] [address] [address] PCP - General Family Medicine 03/18/19 Eleanor Ramon MD [address] [place] [address] Medical Oncologist/Fur Floor Worker Hematology 07/12/20 documented as of this encounter
--- OUTSIDE RECORDS SUMMARY | 2024-05-18 22:15 | XMS_ITS | Encounter Summary ---
Author Organization [facility] of [facility] Address [address] [facility] [address] [place] [address] Phone Care Team Providers Care Architectural Draftsman Name Role Phone Tip Armenta MD Primary Care Provider [phone] Eleanor Ramon MD Unavailable [phone] Reason for Referral * Diagnostic Imaging (Routine) - Closed Specialty Diagnoses / Procedures Referred By Contac t Referred To Contact Diagnoses 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 Procedures XR Spine Cervical 2 or 3 Views Clifford Concepcion MD [address] [place] [address] Phone: tel: fax: [address] [address] Referral ID Status Reason Start Date Expiration Date Visits Re quested Visits Authorized [id number] Closed 03/28/2021 04/27/2022 1 1 Encounter Details Date Type Department Care Team (Late st Contact Info) Description 03/28/2021 Orders Only [facility] Neurosurgery [address] [facility] Medical Office Building [address] [place] [address] Clifford Concepcion MD [address] [place] [address] Cervical disc disorder with myelopathy [...] on file Legal Sex Male 1:20 AM BASKET BOTTOM MACHINE OPERATOR Gender Identity Not on file Sexual Orientation Not on file documented as of this encounter Plan of Treatment Upcoming Encounters Date Type Department Care Team (Late st Contact Info) Description 05/22/2024 10:45 AM BASKET BOTTOM MACHINE OPERATOR Hospital Encounter [facility] Endoscopy [address] [place] [address] Nikolay Boucher MD [address] [place] [address] 05/22/2024 10:45 AM BASKET BOTTOM MACHINE OPERATOR - 05/22/2024 11:15 AM BASKET BOTTOM MACHINE OPERATOR Surgery [facility] Endoscopy [address] [place] [address] Nikolay Boucher MD [address] [place] [address] EGD Scheduled Procedures Name Priority Associated Diagnoses Date/Ti ri ESOPHAGOGASTRODUODENOSCOPY Crohn's disease of both small and large intestine with intestinal obstruction (HCC) 05/22/2024 10:45 AM BASKET BOTTOM MACHINE OPERATOR documented as of this encounter Results [...] (HCC) documented in this encounter Care Teams Architectural Draftsman Relationship Specialty Start Date End Date Tip Armenta MD [address] [address] PCP - General Family Medicine 03/18/19 Eleanor Ramon MD [address] [facility] [address] [place] [address] Medical Oncologist/Burn Out Scarfing Operator Hematology 07/12/20 documented as of this encounter
--- OUTSIDE RECORDS SUMMARY | 2024-05-18 22:15 | XMS_ITS | Encounter Summary ---
Author Organization [facility] Healthcare Address [address] [place] [address] Care Team Providers Care Ordnance Truck Installation Supervisor Name Role Phone Tip Armenta MD Primary Care Provider [phone] Eleanor Ramon MD Unavailable [phone] Encounter Details Date Type Department Care Team (Latest Contact Info) Description 02/16/2021 10:52 AM CDT - 02/16/2021 6:08 PM CDT Hospital Encounter [facility] Imaging [address] [place] [address] Discharge Disposition: Discharge to home or self [...] on file Legal Sex Male 1:20 AM FLIGHT COMMUNICATIONS OFFICER Gender Identity Not on file Sexual [...] (Humira,CF, Pen) 40 mg/0.4 mL pen injector kitIndications:Film Editor hn's disease of small and large intestines [...] mouth as needed 01/07/2021 1 vit A-vit Q-vtxu-pqaaplpc 15 mg lozenge Take 1 tablet by mouth as needed 10/12/2016 2 documented as of this encounter Discharge Disposition Disposition Code Departure Means Destination Discharge to home or self care documented in this encounter Plan of Treatment Upcoming Encounters Date Type Department Care Team (Late st Contact Info) Description 05/22/2024 10:45 AM FLIGHT COMMUNICATIONS OFFICER Hospital Encounter [facility] Endoscopy [address] [place], [place] [address] Nikolay Boucher MD [address] [place] [address] 05/22/2024 10:45 AM FLIGHT COMMUNICATIONS OFFICER - 05/22/2024 11:15 AM FLIGHT COMMUNICATIONS OFFICER Surgery [facility] Endoscopy [address] [place], [place] [address] Nikolay Boucher MD [address] [place] [address] EGD Scheduled Procedures Name Priority Associated Diagnoses Date/Ti me ESOPHAGOGASTRODUODENOSCOPY Crohn's disease of both small and large intestine with intestinal obstruction (HCC) 05/22/2024 10:45 AM FLIGHT COMMUNICATIONS OFFICER documented as of this encounter Procedures Procedure Name Priority Date/Time Associated Diagnosis Comments FL FLUOROSCOPY < 1 HOUR IP Routine 02/16/2021 5:54 PM CDT documented in this encounter Results * FL Fluoroscopy < 1 Hour (02/16/2021 5:54 PM CDT) Narrative [facility] - 02/16/2021 5:54 PM CDT The images from this study are not interpreted by Radiology. ??Please refer to the physician's procedure / OR operative note. Clifford Concepcion MD IMG FLUOROSCOPY PROCEDURES Ibeth l Result [facility] documented in this encounter Visit Diagnoses Not on filedocumented in this encounter Care Teams Ordnance Truck Installation Supervisor Relationship Specialty Start Date End Date Tip Armenta MD [address] [address] PCP - General Family Medicine 03/18/19 Eleanor Ramon MD [address] [place] [address] Medical Oncologist/French Weaver Hematology 07/12/20 documented as of this encounter
--- OUTSIDE RECORDS SUMMARY | 2024-05-18 22:15 | XMS_ITS | Encounter Summary ---
Author Organization [facility] Healthcare Address [address] [place] [address] Care Team Providers Care Director Call Center Sales Name Role Phone Tip Armenta MD Primary Care Provider [phone] Eleanor Ramon MD Unavailable [phone] Encounter Details Date Type Department Care Team (Latest Contact Info) Description 02/16/2021 9:42 AM CDT - 02/17/2021 11:00 AM CDT Hospital Encounter [facility] [address] [address] [place] [address] Clifford Concepcion MD [address] [place] [address] Discharge Disposition: Discharge to home or self [...] on file Legal Sex Male 1:20 AM REPAIRER RECREATIONAL VEHICLE Gender Identity Not on file Sexual Orientation Not on file documented as of this encounter Last Filed Vital Signs Vital Sign Reading Time Taken Comments Blood Pressure 157/89 02/17/2021 8:40 AM CDT Pulse 102 02/17/2021 8:41 AM CDT Temperature 36.7 ??C (98 ??F) 02/17/2021 8:40 AM CDT Respiratory Rate 17 02/17/2021 8:40 AM CDT Oxygen Saturation 95% 02/17/2021 8:41 AM CDT Inhaled Oxygen Concentration - - Weight 98 kg (216 lb 1.6 oz) 02/16/2021 12:45 PM CDT Height 185.4 cm (6' 1 ) 02/16/2021 12:45 PM CDT Body Mass Index 28.51 02/16/2021 12:45 PM CDT documented in this encounter Discharge Diagnoses Diagnosis Cervical disc disorder at C6-C7 level with radiculopathy - CERVICAL DISC DISORDER AT C6-C7 LEVEL WITH RADICULOPATHY Cervical disc disorder at C6-C7 level with myelopathy - CERVICAL DISC DISORDER AT C6-C7 LEVEL WITH MYELOPATHY Major depressive disorder, single episode, unspecified - MAJOR DEPRESSIVE DISORDER, SINGLE EPISODE, UNSPECIFIED Anxiety disorder, unspecified - ANXIETY DISORDER, UNSPECIFIED Essential (primary) hypertension - ESSENTIAL (PRIMARY) HYPERTENSION Unspecified essential hypertension Gastro-esophageal reflux disease without esophagitis - GASTRO-ESOPHAGEAL REFLUX DISEASE WITHOUT ESOPHAGITIS Crohn's disease of both small and large intestine without complications (HCC) - CROHN'S DISEASE OF BOTH SMALL AND LARGE INTESTINE WITHOUT COMPLICATIONS Iron deficiency anemia secondary to blood loss (chronic) - IRON DEFICIENCY ANEMIA SECONDARY TO BLOOD LOSS (CHRONIC) Allergy status to narcotic agent - ALLERGY STATUS TO NARCOTIC AGENT Acquired absence of other specified parts of digestive tract - ACQUIRED ABSENCE OF OTHER SPECIFIED PARTS OF DIGESTIVE TRACT documented in this encounter Discharge Summaries * Michael Viveros PA - 02/17/2021 8:49 AM CDT Inpatient Discharge Summary BRIEF OVERVIEW Admitting Provider: Clifford Concepcion MD Discharge Provider: Clifford Concepcion MD Primary Care Physician at Discharge: Tip Armenta MD [phone] Admission Date: 02/16/2021 Discharge Date: 02/17/2021 Admission Location: [facility] Problems/Diagnoses: Principal Problem: Cervical disc disorder with myelopathy of mid-cervical region Active Problems: Iron deficiency anemia due to chronic blood loss Crohn's disease of both small and large intestine (HCC) HTN (hypertension) Risk factors for obstructive sleep apnea Resolved Problems: No resolved hospital problems. DETAILS OF HOSPITAL STAY Presenting Problem/History of Present Illness: Patient presented for elective surgery on 02/16 Hospital Course: Patient underwent a C6-7 cervical arthroplasty that was completed without complication on 02/16/21. Post operative, patient was transferred to the post surgical unit to monitor oxygen sats [facility] op[facility] as [facility] was a [...] blood pressure), call your family doctor or high density press operator. You will be given a prescription for pain medications, a muscle relaxer and possibly a laxative, aspain medications can cause constipation. Take the pain medicines as instructed. You can also take gvil-oxl-mrzknol anti-inflammatory medications (such as: Motrin, Advil, Ibuprofen, [...] mouth as needed Generic drug: vit A-vit J-yrps-pomgwzlv zolpidem 10 mg tablet Take 10 mg [...] 03/03/2021 11:00 AM Clifford Concepcion MD SPINE MOB4 NS 03/30/2021 10:45 AM Clifford Concepcion MD SPINE [id number] NS 07/21/2021 8:00 AM Claudia Mcclendon, ACCESS DATABASE DEVELOPER [facility] Cosigned by Clifford Concepcion MD at 02/18/2021 10:23 AM CDT documented in this encounter Discharge Instructions * Discharge Instructions* Michael Viveros PA - 02/16/2021 3:12 PM CDT Lex Herbert, ? The medication renewals below were approved, please check with your pharmacy to determine when it is available for pickup. ?? The following prescriptions will be filled at [facility][id number] - Cory Wang - [id number] [facility] Maragret Gonzalez [[phone]]: - oxyCODONE (ROXICODONE) 5 mg immediate release [...] blood pressure), call your family doctor or high density press operator. You will be given a prescription for pain medications, a muscle relaxer and possibly a laxative, aspain medications can cause constipation. Take the pain medicines as instructed. You can also take rveq-yqx-mvclthm anti-inflammatory medications (such as: Motrin, Advil, Ibuprofen, [...] Discharge ALPRAZolam (XANAX) 1 mg tablet TK 1/2 [...] (Humira,CF, Pen) 40 mg/0.4 mL pen injector kitIndications:Polysomnography Technician hn's disease of small and large intestines [...] pain 56 tablet 02/16/2021 1 vit A-vit Y-cldz-korxgpce 15 mg lozenge Take 1 tablet by [...] and oriented Incision is clean and dry. ANYLA drain output noted and pulled easily without [...] biceps, triceps, wrist extension, wrist flexion. Hand housekeeping and laundry team leader is 5/5 but intrinsics are 4 to 4+ out of 5. Negative Chavez's Negative Babinski Cosigned by Clifford Concepcion MD at 02/16/2021 2:59 PM CDT Source Note - Francois Anthony MD - 02/10/2021 7:31 AM CDT Images from the original note were not included. [facility] Preoperative Assessment and Planning Preoperative Evaluation Record Evaluation type/location: [facility] Planned procedure site: [facility] OR Date: 02/10/21 Anesthesia Evaluation Mello [...] Cardiovascular + Hypertension Pertinent negatives: CAD ; IL ; CABG ; valvular heart disease; valve [...] pre-procedure COVID19 testing to be performed on [place]. [facility] will place the order for testing. Result [...] 11/29/17 -- Shaun Chavarria MD vit A-vit M-hfnb-wjzksfhg (ZINC WITH VITAMINS A AND C) 15 [...] (DEPO-TESTOTERONE) 200 mg/mL injection ??? vit A-vit P-rati-skujzvfr (ZINC WITH VITAMINS A AND C) 15 [...] Medication protocol when under care of a MED PEDS Planned anesthesia: General Informed Consent: Anesthesia plan [...] Bower, PT - 02/17/2021 9:35 AM CDT [facility] Physical Therapy Missed Visit Patient Name: Mello Herbert Date of Service: 02/17/2021 Date of : 1965 Age: 55 y.o. male Room: [address] Admit Date: 02/16/2021 Attending Provider: Clifford [...] Benitez, OT - 02/17/2021 8:35 AM CDT [facility] Occupational Therapy Evaluation Patient Name: Mello Herbert Date of Service: 02/17/2021 Date of : 1965 Age: 55 y.o.male Room: [address] Admit Date: 02/16/2021 Attending Provider: Clifford [...] Inside: 13 Railings: bilateral Receives Help From: , Monica Bathroom Shower/Tub: Walk-in shower with threshold Bathroom Toilet: Standard height Bathroom Equipment: grab bars in shower/tub, built-in shower seat and hand held shower Home Mobility Equipment: walking stick Home ADL Equipment: None Level of [place]: Independent with ADLs, Independent with transfers and Independent with ambulation Driving: Yes 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 PREOPERATIVE DIAGNOSES 1. acute soft disc herniation resulting in severe myeloradiculopathy. POSTOPERATIVE DIAGNOSES same NAME OF OPERATIONS -- Anterior cervical discectomy and disc arthroplasty at C6-7 with placement of the RelayFoodstronic Prestige LP arthroplasty device. -- Use of the [...] and placed our retractors, and we placed Harbinger pins into C6 and C7. I applied [...] MD - Primary Anesthesiologist: James Suh MD MED PEDS: Sherry Castillo CRNA Precision Honer: Pablo Saucedo RN; Tootie Isaac RN; Valery Soto RN Precision Honer Relief: Jennifer Franks RN; Carolina Dixon RN Scrub: Aminah Casiano ST; Lynne Madsen FA: BETSY Liao PA-C DATE OF SURGERY : 02/16/2021 Preoperative Diagnosis: [...] Implant Name Type Inv. Item Serial No. Winding Operator Lot No. LRB No. Used Action [employer] SOFAMOR DANEK [id number] PRESTIGE LP 6MM 16MM CERVICAL SPINE DISC INTERVERTEBRAL TITANIUM - [id number] Other - see comments [employer] SOF[employer]ANEK [id number] Prestige Lp 6mm 16mm Cervical Spine Disc Intervertebral Titanium Medtronic Inc [id number] N/A 1 Implanted Complications: None Condition on Discharge from the operating room was stable POLLO Moyer Date: 02/16/2021 Time: 5:20 PM No Resident involved on case documented in this encounter Plan of Treatment Upcoming Encounters Date Type Department Care Team (Late st Contact Info) Description 05/22/2024 10:45 AM REPAIRER RECREATIONAL VEHICLE Hospital Encounter [facility] End[facility] [address] [place] [address] Nikolay Boucher MD [address] [place] [address] 05/22/2024 10:45 AM REPAIRER RECREATIONAL VEHICLE - 05/22/2024 11:15 AM REPAIRER RECREATIONAL VEHICLE Surgery [facility] [address] [address] Nikolay Boucher MD [address] [place] [address] EGD Scheduled Procedures Name Priority Associated Diagnoses Date/Ti me ESOPHAGOGASTRODUODENOSCOPY Crohn's disease of both small and large intestine with intestinal obstruction (HCC) 05/22/2024 10:45 AM REPAIRER RECREATIONAL VEHICLE documented as of this encounter Procedures Procedure [...] special drill bit 3mm/4mm coarse bit, bone recyclable materials collector sucker CERVICAL ARTHROPLASTY 02/16/2021 3:13 PM CDT Cervical disc disorder with myelopathy of mid-cervical region Case Notes Open, anterior, supine, osi-flat board, chin strap traction, koros/blackbelt, fiberoptic, fluoro, portable xrays, hao drill, special drill bit 3mm/4mm coarse bit, bone recyclable materials collector sucker POC ISTAT Routine 02/16/2021 1:12 [...] LAB BLOOD ORDERABLES Ibeth l Result [facility] [address] [facility]. [place] [address] * (ABNORMAL) CBC without differential (02/17/2021 5:02 AM CDT) WBC 10.6(H) 3.8 - 9.9 K/cumm [facility] Hgb 12.6(L) 13.0 - 17.5 g/dL [facility] Hct 39.7 38.9 - 50.3 % [facility] Plt 185 150 - 400 K/cumm [facility] MPV 9.4 9.1 - 12.3 fL [facility] RBC 4.47 4.30 - 5.80 M/cumm [facility] MCV 88.8 81.3 - 96.4 fL [facility] MCH 28.2 27.1 - 33.3 pg [facility] MCHC 31.7(L) 32.3 - 35.7 g/dL [facility] RDW CV 13.3 11.1 - 14.9 % [facility] RDW SD 43.3 35.7 - 48.1 fL [facility] NRBC abs 0.00 0.00 - 0.01 K/cumm [facility] Blood 02/17/2021 5:02 AM CDT 02/17/2021 5:05 AM CDT us Michael ABAD LAB BLOOD ORDERABLES Ibeth olson Result [facility] [address] [facility]. [place] [address] * (ABNORMAL) Basic metabolic panel (02/17/2021 5:02 AM CDT) Sodium 136 135 - 145 mmol/L [facility] Potassium, pl 4.2 3.3 - 4.9 mmol/L [facility] Chloride 99 97 - 110 mmol/L [facility] CO2 29 22 - 32 mmol/L [facility] Anion gap 8 2 - 15 mmol/L [facility] BUN 15 8 - 25 mg/dL [facility] Creatinine 1.60(H) 0.80 - 1.30 mg/dL [facility] Glucose 96 70 - 199 mg/dL [facility] Comment: Interpretive Data Fasting glucose >/= [...] CDT 02/17/2021 5:05 AM CDT us Michael AABD LAB BLOOD ORDERABLES Ibeth olson Result [facility] [address] [facility]. [place] [address] * XR Spine Cervical 2 or 3 [...] PROCEDURES Ibeth l Result Performing Organization Address City/[facility] Co de Phone Number [email or web address] * POC ISTAT (02/16/2021 1:12 PM CDT) Pathologist [facility] K POC 4.1 3.3 - 4.9 mmol/L [facility] Comment: Interpretive Data Unable to assess hemolysis. ??Invitro hemolysis causes falsely elevated potassium. Current Interpretive Data was last revised on 2020. POC Device Number [id number] [facility] POC Performer [phone] [facility] Blood 02/16/2021 1:12 PM CDT 02/16/2021 1:12 PM CDT Clifford Concepcion MD LAB BLOOD ORDERABLES Final Resu lt [facility] [address] [facility]. Department of [employer] [place], [place] [id number] * ABO / Rh Confirmation Testing (02/16/2021 1:10 PM CDT) Pathologist [facility] ABO/Rh Confirmation O Positive [facility] Blood 02/16/2021 1:10 PM CDT 02/16/2021 1:20 PM CDT us Clifford Concepcion MD LAB BLOOD ORDERABLES Final Resu lt [facility] [address] [address] [facility]. [place] [address] documented in this encounter Visit Diagnoses Diagnosis Cervical disc disorder with myelopathy of mid-cervical region- Primary Crohn's disease of both small and large intestine (HCC) Iron deficiency anemia due to chronic blood loss Iron deficiency anemia secondary to blood loss (chronic) HTN (hypertension) Unspecified essential hypertension Risk factors for obstructive sleep apnea Crohn's disease of both small and large [...] Given 02/17/2021 8:52 AM CDT 5 mg cyclobenzaprine (FLEXERIL) tablet 5 mg 5 mg, oral, Every 8 hours PRN, muscle spasms, Starting on Sat02/16/21 at 1836 Given 02/16/2021 11:51 PM CDT 5 mg folic acid (FOLVITE) tablet 1 mg 1 mg, oral, Every morning, First dose on Sat02/17/21 at 0900 Given 02/17/2021 8:52 AM CDT 1 mg gabapentin (NEURONTIN) capsule 300 mg 300 mg, oral, Once, On Sana 02/16/21 at [...] First dose on Sana 02/16/21 at 2100 Given 02/16/2021 8:12 PM CDT 10 mg ondansetron (ZOFRAN) injection 8 mg 8 mg, intravenous, Administer over 2 Minutes, Every 6 hours PRN, nausea, vomiting, if not tolerating PO, Starting on Sana 02/16/21 at 1836, Indications: nausea and vomitingIndications:nausea and vomiting ondansetron ODT (ZOFRAN-ODT) disintegrating tablet 8 mg 8 mg, oral, Every 6 hours PRN, nausea, vomiting, Starting on Sana 02/16/21 at 1836, Indications: nausea and vomitingIndications:nausea and vomiting oxyCODONE (ROXICODONE) tablet 5 mg 5 mg, oral, Every 4 hours PRN, 2nd line for pain, ok to repeat one tablet if having pain, Starting on Sana 02/16/21 at 1836, Indications: PainIndications:Pain Given 02/17/2021 10:22 AM CDT 5 mg Given 02/17/2021 8:52 AM CDT 5 mg Given 02/17/2021 4:41 AM CDT [address] (PROTONIX) extended release tablet 40 mg 40 mg, oral, Daily, First dose on Sat02/17/21 at 0900, Do not crush, chew, cut, dissolve, open or otherwise manipulate tablet/capsule., Indications: Mucositis ProphylaxisIndications:Mucositis Prophylaxis Given 02/17/2021 8:52 AM CDT 40 mg sodium chloride 0.9% with potassium chloride 20 mEq/L infusion (premix) 100 mL/hr, intravenous, Continuous, Starting on Sana 02/16/21 at 1915 New Bag 02/17/2021 4:44 AM CDT 100 mL/hr 100 mL/hr New Bag 02/16/2021 6:53 PM CDT 100 mL/hr 100 mL/hr vancomycin 1500 mg/250 mL in sodium chloride 0.9% (premix) 1,500 mg 1,500 mg, intravenous, Administer over 90 Minutes, Once, On Asna 02/16/21 at 1315, For 1 dose, Pre-Op, Administer within 120 minutes of incision., Indications: Prophylaxis, SurgicalIndications:Prophylaxis, Surgical New Bag 02/16/2021 2:28 PM CDT [...] 2011 (Given - Provider: Sarah Woods, GUEVARA) amLODIPine (NORVASC) tablet 5 mg 5 mg, [...] oral, 2 times daily, First dose on Sana 02/16/21 at 2100, Hold for diarrhea, Indications: constipation [...] at 1945 2011 (Given - Provider: Sarah Woods RN) 0852 (Given - Provider: Arlene Watson RN) montelukast (SINGULAIR) tablet 10 mg 10 mg, oral, Nightly, First dose on Sat02/16/21 at 2100 2011 (Given - Provider: Sarah Woods RN) pantoprazole DR (PROTONIX) extended release tablet [...] 1836, Indications: Fever, Pain 0437 (Return to Cabinet - Provider: Sarah Woods, GUEVARA) ALPRAZolam (XANAX) tablet 0.5 mg 0.5 mg, oral, 2 times daily PRN, anxiety, Starting on Sana 02/16/21 at 1836 bupivacaine-EPINEPHrine (MARCAINE with EPI) 0.25 %-1:200,000 preservative free injection (CANCELED) As needed, Starting on Sana 02/16/21 at 1538, Intra-Op 1538 (Given - Provider: Clifford Concepcion MD) cyclobenzaprine (FLEXERIL) tablet 5 mg 5 mg, oral, Every 8 hours PRN, muscle spasms, Starting on Sana 02/16/21 at 1836 2351 (Given - Provider: Sarah Woods RN) diphenoxylate-atropine (LOMOTIL) 2.5-0.025 mg per tablet 1 tablet 1 tablet, oral, 4 times daily PRN, diarrhea, Starting on Sana 02/16/21 at 1836 HYDROmorphone (DILAUDID) injection 0.2 mg [...] 02/16/21 at 1836, Indications: nausea and vomiting oxyCODONE (ROXICODONE) tablet 5 mg 5 mg, oral, Every 4 hours PRN, 2nd line for pain, ok to repeat one tablet if having pain, Starting on Sana 02/16/21 at 1836, Indications: Pain 1856 (Given - Provider: Arlene Watson RN)2020 (Given - Provider: Sarah Woods, GUEVARA)2348 (Given - Provider: Sarah Woods, RN) 0053 (Given - Provider: Sarah Woods, RN)0441 (Given - Provider: Sarah Woods, RN)0852 (Given - Provider: Arlene Watson RN)1022 (Given - Provider: Arlene Watson RN) polyethylene glycol (MIRALAX) packet 17 g 17 g, oral, Daily PRN, constipation, Starting on Sana 02/16/21 at 1836, Indications: constipation sodium chloride 0.9% [...] 1 02/16/2021 ALPRAZolam (XANAX) tablet 0.5 mg 02/17/20 bupivacaine-EPINEPHrine (MAR NANDINI with EPI) 0.25 %-1:200,000 preservative free injection 02/16/2021 ceFAZolin (ANCEF) 1 gram/10 mL in sterile water (premix) 2,000 mg 02/16/2021 cyclobenzaprine (FLEXERIL) tablet 5 mg 1 diphenhydrAMINE (BENADRYL) i njection 12.5 mg 02/16/2021 diphenoxylate-atropine (LOMO TIL) 2.5-0.025 mg per tablet 1 tablet 1 02/16/2021 docusate sodium (COLACE) capsule 100 mg 1 0 02/16/2021 famotidine (PEPCID) injection 20 mg 02/16 fentaNYL (SUBLIMAZE) preserv ative free injection 25 mcg 1 02/16/2021 hydrALAZINE (APRESOLINE) injection 5 mg 1 0 02/16/2021 hydroCHLOROthiazide (HYDRODI URIL) tablet 25 mg 02/16/2021 HYDROcodone-acetaminophen (N ORCO) 5-325 mg per tablet 1 tablet 1 02/16/2021 irbesartan (AVAPRO) tablet 300 mg labetaloL (NORMODYNE,TRANDAT E) injection 5 mg 02/16/2021 Lactated Ringer's (LR) infusion meperidine (DEMEROL) preserv ative free injection 12.5 mg 02/16/2021 naloxone (NARCAN) 0.4 mg/mL injection 0.04-0.4 mg 02/16/2021 ondansetron (ZOFRAN) injection 4 mg 02/16 ondansetron (ZOFRAN) injection 8 mg 02/16 ondansetron ODT (ZOFRAN-ODT) disintegrating tablet 8 mg 02/16/2021 polyethylene glycol (MIRALAX) packet 17 g 02/16/2021 prochlorperazine (COMPAZINE) injection 5 mg 02/16/2021 scopolamine patch 72 hour 1 patch 1 09/23/2 021 sodium chloride 0.9% flush 0.5-20 mL 1 01/26 sodium chloride 0.9% irrigation 1 sterile water irrigation 1 02/16/2021 thrombin-recombinant 5,000 u nit topical solution 1 02/16/2021 vancomycin (VANCOCIN) solution 1 02/16/2021 zolpidem (AMBIEN) tablet 5 mg 1 02/16/2021 CORE MEASURES Count Last Ordered Date First Ord ered Date REASON FOR NO VTE PROPHYLAXIS AT ADMISSION 1 02/16/2021 documented in this encounter Care Teams Director Call Center Sales Relationship Specialty Start Date End Date Tip Armetna MD [address] [employer] [address] PCP - General Family Medicine 03/18/19 Eleanor Ramon MD [address] [facility] [address] [place] [address] Medical Oncologist/Survival Specialist Hematology 07/12/20 documented as of this encounter
--- OUTSIDE RECORDS SUMMARY | 2024-05-18 22:15 | XMS_ITS | Encounter Summary ---
Author Organization [facility] Address [address] [facility] [address] [place] [address] Phone Care Team Providers Care Car Wash Attendant Name Role Phone Tip Armenta MD Primary Care Provider [phone] Eleanor Ramon MD Unavailable [phone] Encounter Details Date Type Department Care Team (Latest Contact Info) Description 02/09/2021 11:00 AM CDT Office Visit [facility] Neurosurgery [address] [place] [address] Clifford Concepcion MD [address] [place] [address] Cervical disc disorder with myelopathy [...] on file Legal Sex Male 1:20 AM DJANGO DEVELOPER Gender Identity Not on file Sexual Orientation Not on file documented as of this encounter Last Filed Vital Signs Vital Sign Reading Time Taken Comments Blood Pressure 158/88 02/09/2021 11:57 AM CDT Pulse 84 02/09/2021 11:57 AM CDT Temperature - - Respiratory Rate - - Oxygen Saturation - - Inhaled Oxygen Concentration - - Weight 97.5 kg (215 lb) 02/09/2021 11:57 AM CDT Height 185.4 cm (6' 1 ) 02/09/2021 11:57 AM CDT Body Mass Index 28.37 02/09/2021 11:57 AM CDT documented in this encounter Progress Notes * Clifford Concepcion MD - 02/09/2021 11:00 AM CDT NEW PATIENT VISIT Subjective CHIEF COMPLAINT Bilateral lower extremity leg weakness and loss of balance HISTORY OF PRESENT ILLINESS Patient is a very pleasant 55-year-old male with a past medical history notable for Crohn's diseasewho is on Humira and has a past history of multiple small bowel resections. He is here to see me for a 3 month history of progressing loss of balance, bilateral lower extremity leg weakness, bilateral lower extremity electrical shocks, and bilateral lower extremity leg numbness. He has an additional past medical history notable for hypertension. He has had no prior spine surgeries. This is not related to any particular injury. He is a nonsmoker. He is . He is currently employed. Ten point review of systems is positive for tiredness and fatigue, headache, neck pain, heartburn, nausea, muscle aches. Today he endorses 8/10 pain on the visual analog pain scale predominantly in his lower back. However is most concerning symptom is the loss of function. Ever since October of 2020 he has been experiencing electrical shocks down his arms and legs. They predominantly originate in his neck but also sometimes in his legs. His numbness is probably present in his feet but radiates up his legs.Standing or sitting for extended period of time makes this worse. Nothing makes it better. He does not have any bowel bladder issues beyond his chronic Crohn's disease bowel issues. With regard to his balance he describes an self is way off balance, he has very unstable walking and gait. He requires the use of a walking stick to get around. He feels that this has been progressively getting worse.His legs feel very heavy. This has also been present for 3 months but he feels that his leg weakness has also been progressive. Nothing makes it better any type of activity makes it worse. PAST MEDICAL HISTORY He has a past medical history of Crohn's colitis (CMS/HCC) (HCC). PAST SURGICAL HISTORY He has a past surgical history that includes Small Bowel Resection. FAMILY HISTORY His family history includes No Known Problems in his father and mother. MEDICATIONS Current Outpatient Medications: ??? acetaminophen-codeine (TYLENOL with CODEINE #3) 300-30 mg per tablet, , Disp: , Rfl: 5 ??? adalimumab (Humira,CF, Pen) 40 mg/0.4 mL pen injector kit, Inject 0.4 mL (40 mg total) under the skin every 14 (fourteen) days Safety labs required every 3 months for med refills, labs due in 03/2021., Disp: 2 each, Rfl: 2 ??? ALPRAZolam (XANAX) 1 mg tablet, TK 1/2 TO 1 T PO BID PRF ANXIETY, Disp: , Rfl: 5 ??? BD SAFETYGLIDE SYRINGE 3 mL 23 x 1 syringe, U UTD, Disp: , Rfl: 5 ??? CIALIS 20 mg tablet, TK 1 T PO QD PRN, Disp: , Rfl: 5 ??? cyanocobalamin (Vitamin B-12) 1,000 mcg/mL injection, INJECT 1 ML Q 2 WEEKS UTD, Disp: , Rfl: 4 ??? diphenoxylate-atropine (LOMOTIL) 2.5-0.025 mg per tablet, TK 1 TO 2 TS PO BID PRN, Disp: , Rfl:5 ??? DULoxetine DR (CYMBALTA) 30 mg capsule, TAKE ONE C BY MOUTH DAILY, Disp: , Rfl: 2 ??? ergocalciferol (VITAMIN D) 50,000 unit capsule, Take 1 cap PO one day a month, Disp: 12 capsule, Rfl: 0 ??? folic acid (FOLVITE) 1 mg tablet, TK 1 T PO D UTD, Disp: , Rfl: 3 ??? hydroCHLOROthiazide (HYDRODIURIL) 25 mg tablet, daily., Disp: , Rfl: ??? hyoscyamine (LEVSIN) 0.125 mg tablet, Take 1 tab PO every 6 hours as needed for spasms, Disp: 120 tablet, Rfl: 5 ??? lansoprazole (PREVACID) 15 mg capsule, Take 15 mg by mouth, Disp: , Rfl: ??? losartan (COZAAR) 25 mg tablet, TK 1 T PO ONCE D, Disp: , Rfl: 6 ??? magnesium oxide,aspartate,citr (TRIPLE MAGNESIUM COMPLEX) 400 mg capsule, Take 1 capsule by mouth, Disp: , Rfl: ??? montelukast (SINGULAIR) 10 mg tablet, TK 1 T PO QD, Disp: , Rfl: 1 ??? nystatin 100,000 unit/mL suspension, Take 5 ml PO 2 times daily,swish and swallow for 14 days, Disp: 140 mL, Rfl: 2 ??? ondansetron (ZOFRAN) 8 mg tablet, TK 1 T PO TID PRN, Disp: , Rfl: 5 ??? testosterone cypionate (DEPO-TESTOTERONE) 200 mg/mL injection, INJ 1 ML IM Q WK, Disp: , Rfl: 5 ??? venlafaxine XR (EFFEXOR-XR) 37.5 mg 24 hr capsule, TK 1 C PO QAM, Disp: , Rfl: 2 ??? vit A-vit M-rryc-etgvjtdm (ZINC WITH VITAMINS A AND C) 15 mg lozenge, Take 1 tablet by mouth, Disp: , Rfl: ??? zolpidem (AMBIEN) 10 mg tablet, TK 1 T PO Q HS PRN, Disp: , Rfl: 5 ALLERGIES He is allergic to latex. SOCIAL HISTORY He reports that he has never smoked. He has never used smokeless tobacco. Objective VITAL SIGNS There were no vitals taken for this visit. PHYSICAL EXAM Well-developed male in no acute distress Cranial nerves 2-12 grossly intact No pronator drift Bilateral upper extremity strength grossly 5/5, full and symmetric throughout including bilateral deltoids, biceps, triceps, wrist extension, wrist flexion. Hand wardrobe mistress is 5/5 but intrinsics are 4 to 4+ out of 5. I was able to over landrum intrinsics with my intrinsics which is unusual for what he describes is a very strong person who practices [employer] and describes himself to have a very strong wardrobe mistress in use of his hands and fingers. [...] I walking stick for ambulation. REVIEW OF IMAGES I personally reviewed an MRI C-spine as well as cervical plain films as well as an MRI L-spine. TheMRI L-spine demonstrates age expected multilevel lumbar spondylosis with the most prominent disc height loss at the L5-S1 level where there is a broad-based disc bulge causing mild bilateral neural foraminal stenosis. Most notably the MRI C-spine demonstrates an overall healthy looking C-spine withthe exception of the C6-7 level where there appears to be a large soft disc herniation causing severe spinal canal stenosis and associated T2 cord signal change. Cervical plain films demonstrate minimal cervical spondylosis as well as minimal loss of disc height and no abnormal motion. Assessment/Plan Plan Patient is a very pleasant 55-year-old male with a large soft disc herniation at the C6-7 level causing cervical myelopathy. This is advanced to affect his gait significantly. He has weakness in bothhis intrinsics of his hands as well as prominent loss of balance and gait ability. He has Lhermittesign with the electrical shocks that he describes. He has elevated reflexes predominantly in his patellar reflexes as expected with location of the disc. Nonetheless given the predominance of bilateral lower extremity signs in the relative absence of upper extremity symptoms with the exception of the mild intrinsic hand muscle weakness will also perform an MRI T-spine to rule out any other herniated disc in the thoracic spine to give him his predominant bilateral lower extremity myelopathy syndrome that we are seeing in clinic today. Plan will be as follows. 1. Schedule for a C6-C7 disc arthroplasty 2. MRI T-spine prior to the disc arthroplasty. We will perform the procedure in an expeditedfashion given the advanced loss of function in the severity of the imaging findings. MD Clifford Pak MD documented in this encounter Plan of Treatment Upcoming Encounters Date Type Department Care Team (Late st Contact Info) Description 05/22/2024 10:45 AM [facility] Hospital Encounter [facility] Endoscopy [address] [address] Nikolay Boucher MD [address] [place] [address] 05/22/2024 10:45 AM DJANGO DEVELOPER - 05/22/2024 11:15 AM DJANGO DEVELOPER Surgery [facility] Endoscopy [address] [place] [address] Nikolay Boucher MD [address] [place] [address] EGD Scheduled Procedures Name Priority Associated Diagnoses Date/Ti me ESOPHAGOGASTRODUODENOSCOPY Crohn's disease of both small and large intestine with intestinal obstruction (HCC) 05/22/2024 10:45 AM DJANGO DEVELOPER documented as of this encounter Visit Diagnoses Diagnosis 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- Primary Crohn's disease of both small and large intestine with intestinal obstruction (HCC) documented in this encounter Care Teams Car Wash Attendant Relationship Specialty Start Date End Date Tip Armenta MD [address] [address] PCP - General Family Medicine 03/18/19 Eleanor Ramon MD [address] [place], [place] [id number] Medical Oncologist/Leather Grader Hematology 07/12/20 documented as of this encounter
--- OUTSIDE RECORDS SUMMARY | 2024-05-18 22:15 | XMS_ITS | Encounter Summary ---
Author Organization [facility] Address [address] [place] [address] Phone Care Team Providers Care High School Math Teacher Name Role Phone Tip Armenta MD Primary Care Provider [phone] Eleanor Ramon MD Unavailable [phone] Encounter Details Date Type Department Care Team (Late st Contact Info) Description 02/21/2021 Telephone [facility] Scheduling [address] [place] [address] Eboni Liao CNA Social History Tobacco Use Types Packs/Day Years [...] on file Legal Sex Male 1:20 AM OPERATOR PREFINISH Gender Identity Not on file Sexual Orientation Not on file documented as of this encounter Miscellaneous Notes * Telephone Encounter - Lakia Hughes - 02/28/2021 12:53 PM CDT Pt called backa nd I advised him to Call PCP regarding his Gout. He stated that his Gout had already cleared up. Thanks us for our call back * Telephone Encounter - Eboni Liao CNA - 02/27/2021 11:18 AM CDT Lvm for pt. To call back to make him aware to contact his PCP regarding his Gout. * Telephone Encounter - Alen De La Torre RN - 02/21/2021 3:02 PM CDT Patient should contact PCP * Telephone Encounter - Eboni Liao CNA - 02/21/2021 10:14 AM CDT Pt's called, pt. Started having very painful Gout in his Right Foot yesterday and she wants toknow if something can be called in for him to take for this. Pt. Uses [facility] in [place], [place].-P- [phone]. documented in this encounter Plan of Treatment Upcoming Encounters Date Type Department Care Team (Late st Contact Info) Description 05/22/2024 10:45 AM OPERATOR PREFINISH Hospital Encounter [facility] Endoscopy [address] [place] [place] [address] Nikolay Boucher MD [address] [place] [address] 05/22/2024 10:45 AM OPERATOR PREFINISH - 05/22/2024 11:15 AM OPERATOR PREFINISH Surgery [facility] Endoscopy [address] [place] [address] Nikolay Boucher MD [address] [place] [address] EGD Scheduled Procedures Name Priority Associated Diagnoses Date/Ti ga ESOPHAGOGASTRODUODENOSCOPY Crohn's disease of both small and large intestine with intestinal obstruction (HCC) 05/22/2024 10:45 AM OPERATOR PREFINISH documented as of this encounter Visit Diagnoses Not on filedocumented in this encounter Care Teams High School Math Teacher Relationship Specialty Start Date End Date Tip Armenta MD [address] [address] PCP - General Family Medicine 03/18/19 Eleanor Ramon MD [address] [facility] [address] [place] [address] Medical Oncologist/Roofer Helper Vinyl Coating Hematology 07/12/20 documented as of this encounter
--- OUTSIDE RECORDS SUMMARY | 2024-05-18 22:16 | XMS_ITS | Encounter Summary ---
Author Organization [facility] Address [address] [place] [address] Phone Care Team Providers Care Cutter Machine Name Role Phone Tip Armenta MD Primary Care Provider [phone] Encounter Details Date Type Department Care Team (Late st Contact Info) Description 03/28/2020 Orders Only [facility] Gastroenterology [address] [facility] 8th [place] [address] [place] [address] Nya Hand RN Esophageal yeast infection (CMS/HCC) Social History Tobacco Use Types Packs/Day Years Used Date Smoking Tobacco: Never Smokeless Tobacco: Never Sex and Gender Information Value Date Recorded Sex Assigned at Not on file Legal Sex Male 1:20 AM ASSEMBLER TYPE BAR AND SEGMENT Gender Identity Not on file Sexual Orientation Not on file documented as of this encounter Ordered Prescriptions Prescription Sig Dispense Quantity Refills Last Filled Start Date End Date nystatin 100,000 unit/mL suspensionIndicati ons:Esophageal yeast infection (CMS/HCC) (HCC) Take 5 ml PO 2 times daily,swish and swallow for 14 days 140 mL 2 03/28/2020 2 documented in this encounter Plan of Treatment Upcoming Encounters Date Type Department Care Team (Late st Contact Info) Description 05/22/2024 10:45 AM ASSEMBLER TYPE BAR AND SEGMENT Hospital Encounter Endoscopy [address] [place] [address] Nikolay Boucher MD [address] [place] [address] 05/22/2024 10:45 AM ASSEMBLER TYPE BAR AND SEGMENT - 05/22/2024 11:15 AM ASSEMBLER TYPE BAR AND SEGMENT Surgery Endoscopy [address] [place] [address] Nikolay Boucher MD [address] [place] [address] EGD Scheduled Procedures Name Priority Associated Diagnoses Date/Ti me ESOPHAGOGASTRODUODENOSCOPY Crohn's disease of both small and large intestine with intestinal obstruction (HCC) 05/22/2024 10:45 AM ASSEMBLER TYPE BAR AND SEGMENT documented as of this encounter Visit Diagnoses Diagnosis Esophageal yeast infection (CMS/HCC) (HCC) Candidiasis of the esophagus Crohn's disease of both small and large intestine with intestinal obstruction (HCC) documented in this encounter Discontinued Medications Medication Sig Discontinue Reason Start Date End Da te nystatin 100,000 unit/mL suspensionIndications:Es ophageal yeast infection (CMS/HCC) (HCC) Take 5 ml PO 2 times daily,swish and swallow for 14 days Reorder 07/27/2019 03/28/2020 documented as of this encounter Care Teams Cutter Machine Relationship Specialty Start Date End Date Tip Armenta MD [address] [address] PCP - General Family Medicine 03/18/19 documented as of this encounter
--- OUTSIDE RECORDS SUMMARY | 2024-05-18 22:16 | XMS_ITS | Encounter Summary ---
Author Organization [facility] Address [address] [place] [address] Phone Care Team Providers Care Machine Overhauler Name Role Phone Tip Armenta MD Primary Care Provider [phone] Eleanor Ramon MD Unavailable [phone] Encounter Details Date Type Department Care Team (Late st Contact Info) Description 07/05/[address] [facility] Gastroenterology [address] [facility] 8th [place] [address] [place] [address] Sofia Talamantes Social History Tobacco Use Types Packs/Day Years Used Date Smoking Tobacco: Never Smokeless Tobacco: Never Sex and Gender Information Value Date Recorded Sex Assigned at Not on file Legal Sex Male 1:20 AM EQUIPMENT OPERATOR WAREHOUSE Gender Identity Not on file Sexual Orientation Not on file documented as of this encounter Progress Notes * Sofia Talamantes - 07/05/2020 9:25 AM CST 07/14/20 - PA approved through [employer] #[id number] starting 07/06/2020 through 07/06/2021 (2 per 28 days) [facility] (2 per 28 days) PMENT OPERATOR WAREHOUSE PMENT OPERATOR WAREHOUSE documented in this encounter Plan of Treatment Upcoming Encounters Date Type Department Care Team (Late st Contact Info) Description 05/22/2024 10:45 AM EQUIPMENT OPERATOR WAREHOUSE Hospital Encounter [facility] Endoscopy [address] [address] Nikolay Boucher MD [address] [place] [address] 05/22/2024 10:45 AM EQUIPMENT OPERATOR WAREHOUSE - 05/22/2024 11:15 AM EQUIPMENT OPERATOR WAREHOUSE Surgery [facility] Endoscopy [address] [address] Nikolay Boucher MD [address] [place] [address] EGD Scheduled Procedures Name Priority Associated Diagnoses Date/Ti me ESOPHAGOGASTRODUODENOSCOPY Crohn's disease of both small and large intestine with intestinal obstruction (HCC) 05/22/2024 10:45 AM EQUIPMENT OPERATOR WAREHOUSE documented as of this encounter Visit Diagnoses Not on filedocumented in this encounter Care Teams Machine Overhauler Relationship Specialty Start Date End Date Tip Armenta MD [address] [address] PCP - General Family Medicine 03/18/19 Eleanor Ramon MD [address] [place], [place] [id number] Medical Oncologist/Photo Producer Hematology 07/12/20 documented as of this encounter
--- OUTSIDE RECORDS SUMMARY | 2024-05-18 22:16 | XMS_ITS | Encounter Summary ---
Author Organization [facility] Address [address] [place] [address] Phone Care Team Providers Care Credit Reporting Clerk Name Role Phone Tip Armenta MD Primary Care Provider [phone] Encounter Details Date Type Department Care Team (Late st Contact Info) Description 11/16/2019 Telephone [facility] Gastroenterology [address] [facility] 8th [place] [address] [place] [address] Roxanna Valenzuela MD [address] [place] [address] Social History Tobacco Use Types Packs/Day Years Used Date Smoking Tobacco: Never Smokeless Tobacco: Never Sex and Gender Information Value Date Recorded Sex Assigned at Not on file Legal Sex Male 1:20 AM ENGRAVING PLATE MAKER Gender Identity Not on file Sexual Orientation Not on file documented as of this encounter Miscellaneous Notes * Telephone Encounter - Yvette Ng MA - 11/16/2019 1:21 PM CDT Called and LMOR to get patient scheduled ----- Message from Nya Hand RN sent at 11/13/2019 4:26 PM CDT ----- Regarding: Needs Urgent ROV , can see Tri Last seen in office 02/10/2018, last set of labs received 02/17/19. HUMIRA DENIED until he makes and keeps ROV and obtains safety labs( CBC LFTS and ne TB Blood test. Per AG protcol documented in this encounter Plan of Treatment Upcoming Encounters Date Type Department Care Team (Late st Contact Info) Description 05/22/2024 10:45 AM ENGRAVING PLATE MAKER Hospital Encounter [facility] Endoscopy [address] [place] [address] Nikolay Boucher MD [address] [place] [address] 05/22/2024 10:45 AM ENGRAVING PLATE MAKER - 05/22/2024 11:15 AM ENGRAVING PLATE MAKER Surgery [facility] Endoscopy [address], [place] [address] Nikolay Boucher MD [address] [place] [address] EGD Scheduled Procedures Name Priority Associated Diagnoses Date/Ti me ESOPHAGOGASTRODUODENOSCOPY Crohn's disease of both small and large intestine with intestinal obstruction (HCC) 05/22/2024 10:45 AM ENGRAVING PLATE MAKER documented as of this encounter Visit Diagnoses Not on filedocumented in this encounter Care Teams Credit Reporting Clerk Relationship Specialty Start Date End Date Tip Armenta MD [address] [address] [address] PCP - General Family Medicine 03/18/19 documented as of this encounter
--- OUTSIDE RECORDS SUMMARY | 2024-05-18 22:16 | XMS_ITS | Encounter Summary ---
Author Organization [facility] Address [address] [place] [address] Phone Care Team Providers Care Client Development Consultant Name Role Phone Tip Armenta MD Primary Care Provider [phone] Encounter Details Date Type Department Care Team (Late st Contact Info) Description 07/22/2019 Orders Only [facility] Gastroenterology [address] [facility] 8th [place] [address] [place] [address] Nya Hand, RN Crohn's disease of small and large intestines with complication (CMS/HCC) (Primary Dx); High risk medications (not anticoagulants) long-term use Social History Tobacco Use Types Packs/Day Years Used Date Smoking Tobacco: Never Smokeless Tobacco: Never Sex and Gender Information Value Date Recorded Sex Assigned at Not on file Legal Sex Male 1:20 AM PRINT PRESS OPERATOR Gender Identity Not on file Sexual Orientation Not on file documented as of this encounter Ordered Prescriptions Prescription Sig Dispense Quantity Refills Last Filled Start Date End Date adalimumab (HUMIRA, CF, PEN) 40 mg/0.4 mL pen injector kitIndications:PA approved through [employer] starting 06/26/2019 through 06/26/2020 (2 pens per 28 days) Inject 0.4 mL (40 mg total) under the skin every 14 (fourteen) days SAFETY LABS REQUIRED EVERY 3 MONTHS FOR REFILLS DUE DEACON FOR FUTURE REFILLS 2 each 07/22/2019 0 documented in this encounter Plan of Treatment Upcoming Encounters Date Type Department Care Team (Late st Contact Info) Description 05/22/2024 10:45 AM PRINT PRESS OPERATOR Hospital Encounter [facility] Endoscopy [address], [place] [address] Nikolay Boucher MD [address] [place] [address] 05/22/2024 10:45 AM PRINT PRESS OPERATOR - 05/22/2024 11:15 AM PRINT PRESS OPERATOR Surgery [facility] Endoscopy [address] [address] Nikolay Boucher MD [address] [place] [address] EGD Scheduled Procedures Name Priority Associated Diagnoses Date/Ti me ESOPHAGOGASTRODUODENOSCOPY Crohn's disease of both small and large intestine with intestinal obstruction (HCC) 05/22/2024 10:45 AM PRINT PRESS OPERATOR documented as of this encounter Visit Diagnoses Diagnosis Crohn's disease of small and large intestines with complication (HCC)- Primary High risk medications (not anticoagulants) long-term use Encounter for long-term (current) use of other medications Crohn's disease of both small and large intestine with intestinal obstruction (HCC) documented in this encounter Discontinued Medications Medication Sig Discontinue Reason Start Date End Da te adalimumab (HUMIRA, CF, PEN) 40 mg/0.4 mL pen injector kitIndications:PA approved through [employer] starting 06/26/2019 through 06/26/2020 (2 pens per 28 days) Inject 0.4 mL (40 mg total) under the skin every 14 (fourteen) days SAFETY LABS REQUIRED EVERY 3 MONTHS FOR REFILLS DUE DEACON FOR FUTURE REFILLS Reorder 06/30/2019 07/22/2019 documented as of this encounter Care Teams Client Development Consultant Relationship Specialty Start Date End Date Tip Armenta MD [address] [address] PCP - General Family Medicine 03/18/19 documented as of this encounter
--- OUTSIDE RECORDS SUMMARY | 2024-05-18 22:16 | XMS_ITS | Encounter Summary ---
Author Organization [facility] Address [address] [place] [address] Phone Care Team Providers Care Compensation And Benefits Advisor Name Role Phone Tip Armenta MD Primary Care Provider [phone] [phone] Encounter Details Date Type Department Care Team (Late st Contact Info) Description 09/03/2019 Orders Only [facility] [address] [facility] Advanced Medicine 8th [place] [address] [place] [address] Nya Hand, RN Crohn's disease of small and large intestines with complication (CMS/HCC) Social History Tobacco Use Types Packs/Day Years Used Date Smoking Tobacco: Never Smokeless Tobacco: Never Sex and Gender Information Value Date Recorded Sex Assigned at Not on file Legal Sex Male 1:20 AM PRINT ROOM WORKER Gender Identity Not on file Sexual Orientation Not on file documented as of this encounter Ordered Prescriptions Prescription Sig Dispense Quantity Refills Last Filled Start Date End Date adalimumab (HUMIRA, CF, PEN) 40 mg/0.4 mL pen injector kitIndications:PA approved through [employer] starting 06/26/2019 through 06/26/2020 (2 pens per 28 days) Inject 0.4 mL (40 mg total) under the skin every 14 (fourteen) days SAFETY LABS REQUIRED EVERY 3 MONTHS FOR REFILLS DUE DEACON By end of 08/2019 for further REFILLS 2 each 1 09/03/2019 0 documented in this encounter Plan of Treatment Upcoming Encounters Date Type Department Care Team (Late st Contact Info) Description 05/22/2024 10:45 AM PRINT ROOM WORKER Hospital Encounter [facility] Endoscopy [address] [place] [address] Nikolay Boucher MD [address] [place] [address] 05/22/2024 10:45 AM PRINT ROOM WORKER - 05/22/2024 11:15 AM PRINT ROOM WORKER Surgery [facility] Endoscopy [address] [place] [address] Nikolay Boucher MD [address] [place] [address] EGD Scheduled Procedures Name Priority Associated Diagnoses Date/Ti me ESOPHAGOGASTRODUODENOSCOPY Crohn's disease of both small and large intestine with intestinal obstruction (HCC) 05/22/2024 10:45 AM PRINT ROOM WORKER documented as of this encounter Visit Diagnoses Diagnosis Crohn's disease of small and large intestines with complication (HCC) Crohn's disease of both small and large intestine with intestinal obstruction (HCC) documented in this encounter Discontinued Medications Medication Sig Discontinue Reason Start Date End Da te adalimumab (HUMIRA, CF, PEN) 40 mg/0.4 mL pen injector kitIndications:PA approved through [employer] starting 06/26/2019 through 06/26/2020 (2 pens per 28 days) Inject 0.4 mL (40 mg total) under the skin every 14 (fourteen) days SAFETY LABS REQUIRED EVERY 3 MONTHS FOR REFILLS DUE DEACON NO REFILLS UNTIL LABS ARE DONE Reorder 08/21/2019 09/03/2019 documented as of this encounter Care Teams Compensation And Benefits Advisor Relationship Specialty Start Date End Date Tip Armenta MD [address] [address] PCP - General Family Medicine 03/18/19 documented as of this encounter
--- OUTSIDE RECORDS SUMMARY | 2024-05-18 22:16 | XMS_ITS | Encounter Summary ---
Author Organization [facility] [place] Address [address] [place] [address] Phone Care Team Providers Care Sock Turner Name Role Phone Tip Armenta MD Primary Care Provider [phone] [phone] Eleanor Ramon MD Unavailable [phone] Reason for Visit * Reason Onset Date Comments Surgical pathology results 01/04/2021 Encounter Details Date Type Department Care Team (Late st Contact Info) Description 01/04/2021 Telephone [facility] 8th [place] [address] [place] [address] Nati Csatillo LPN Surgical pathology results Social History Tobacco Use Types Packs/Day Years [...] on file Legal Sex Male 1:20 AM POWER SYSTEM DISPATCHER Gender Identity Not on file Sexual Orientation Not on file documented as of this encounter Miscellaneous Notes * Telephone Encounter - Nati Castillo LPN - 01/04/2021 7:39 AM CDT ----- Message from Roxanna Valenzuela MD sent at 01/04/2021 7:33 AM CDT ----- I left a message - biopsies with only reflux esophagitis, no eosinophilic esophagitis documented in this encounter Plan of Treatment Upcoming Encounters Date Type Department Care Team (Late st Contact Info) Description 05/22/2024 10:45 AM POWER SYSTEM DISPATCHER Hospital Encounter [facility] Endoscopy [address] [place] [address] Nikolay Boucher MD [address] [place] [address] 05/22/2024 10:45 AM POWER SYSTEM DISPATCHER - 05/22/2024 11:15 AM POWER SYSTEM DISPATCHER Surgery [facility] Endoscopy [address] [place] [address] Nikolay Boucher MD [address] [place] [address] EGD Scheduled Procedures Name Priority Associated Diagnoses Date/Ti me ESOPHAGOGASTRODUODENOSCOPY Crohn's disease of both small and large intestine with intestinal obstruction (HCC) 05/22/2024 10:45 AM POWER SYSTEM DISPATCHER documented as of this encounter Visit Diagnoses Not on filedocumented in this encounter Care Teams Sock Turner Relationship Specialty Start Date End Date Tip Armenta MD [address] [address] PCP - General Family Medicine 03/18/19 Eleanor Ramon MD [address] [place], [place] [id number] Medical Oncologist/Campaign Marketing Specialist Hematology 07/12/20 documented as of this encounter
--- OUTSIDE RECORDS SUMMARY | 2024-05-18 22:16 | XMS_ITS | Encounter Summary ---
Author Organization [facility] Address [address] [place] [address] Phone Care Team Providers Care Club Car Attendant Name Role Phone Tip Armenta MD Primary Care Provider [phone] Encounter Details Date Type Department Care Team (Late st Contact Info) Description 02/03/2020 Orders Only [facility] Gastroenterology [address] [facility] Advanced Medicine 8th [place] [address] [place] [address] Nya Hand RN Crohn's disease of small and large intestines with complication (CMS/HCC); Abdominal spasms Social History Tobacco Use Types Packs/Day Years Used Date Smoking Tobacco: Never Smokeless Tobacco: Never Sex and Gender Information Value Date Recorded Sex Assigned at Not on file Legal Sex Male 1:20 AM NURSING CENTER TUTOR Gender Identity Not on file Sexual Orientation Not on file documented as of this encounter Ordered Prescriptions Prescription Sig Dispense Quantity Refills Last Filled Start Date End Date hyoscyamine (LEVSIN) 0.125 mg tabletIndications: Urinary Incontinence Take 1 tab PO every 6 hours as needed for spasms 120 tablet 5 02/03/2020 07/18/2020 documented in this encounter Plan of Treatment Upcoming Encounters Date Type Department Care Team (Late st Contact Info) Description 05/22/2024 10:45 AM NURSING CENTER TUTOR Hospital Encounter [facility] Endoscopy [address] [address] [address] Nikolay Boucher MD [address] [place] [address] 05/22/2024 10:45 AM NURSING CENTER TUTOR - 05/22/2024 11:15 AM NURSING CENTER TUTOR Surgery [facility] Endoscopy [address] [place] [address] Nikolay Boucher MD [address] [place] [address] EGD Scheduled Procedures Name Priority Associated Diagnoses Date/Ti me ESOPHAGOGASTRODUODENOSCOPY Crohn's disease of both small and large intestine with intestinal obstruction (HCC) 05/22/2024 10:45 AM NURSING CENTER TUTOR documented as of this encounter Visit Diagnoses Diagnosis Crohn's disease of small and large intestines with complication (HCC) Abdominal spasms Crohn's disease of both small and large intestine with intestinal obstruction (HCC) documented in this encounter Discontinued Medications Medication Sig Discontinue Reason Start Date End Da te hyoscyamine (LEVSIN) 0.125 mg tabletIndications:Urinary Incontinence Take 1 tab PO every 6 hours as needed for spasms Reorder 01/22/2019 02/03/2020 documented as of this encounter Care Teams Club Car Attendant Relationship Specialty Start Date End Date Tip Armenta MD [address] [address] PCP - General Family Medicine 03/18/19 documented as of this encounter
--- OUTSIDE RECORDS SUMMARY | 2024-05-18 22:16 | XMS_ITS | Encounter Summary ---
Author Organization [facility] Healthcare Address [facility] [place] [address] Care Team Providers Care Garden Tractor Mechanic Name Role Phone Tip Armenta MD Primary Care Provider [phone] Eleanor Ramon MD Unavailable [phone] Encounter Details Date Type Department Care Team (Latest Contact Info) Description 01/17/2021 3:46 PM CDT - 01/17/2021 11:59 PM CDT Hospital Encounter [facility] [address] [place] [address] Discharge Disposition: Discharge to home or [...] on file Legal Sex Male 1:20 AM GOLD PLATER Gender Identity Not on file Sexual Orientation Not on file documented as of this encounter Medications at Time of Discharge ALPRAZolam (XANAX) 1 mg tablet TK 1/2 TO 1 T PO BID PRF ANXIETY 5 11/21/2017 BD SAFETYGLIDE SYRINGE 3 mL 23 x [...] (25 mg total) by mouth as needed lansoprazole (PREVACID) 15 mg capsule Take 1 [...] (Humira,CF, Pen) 40 mg/0.4 mL pen injector kitIndications:Product Inspection Coordinator hn's disease of small and large intestines [...] by mouth every morning 6 11/25/2017 1 mupirocin (BACTROBAN) 2 % ointment APPLY [...] PO QAM 2 07/14/201802/10 1 vit A-vit K-bipp-yktrnqpe 15 mg lozenge Take 1 tablet by mouth as needed 10/12/2016 2 documented as of this encounter Discharge Disposition Disposition Code Departure Means Destination Discharge to home or self care documented in this encounter Plan of Treatment Upcoming Encounters Date Type Department Care Team (Late st Contact Info) Description 05/22/2024 10:45 AM [facility] Hospital Encounter [facility] Endoscopy [address] [place] [address] Nikolay Boucher MD [address] [place] [address] 05/22/2024 10:45 AM GOLD PLATER - 05/22/2024 11:15 AM [facility] Surgery [facility] Endoscopy [address] [address] Nikolay Boucher MD [address] [place] [address] EGD Scheduled Procedures Name Priority Associated Diagnoses Date/Ti me ESOPHAGOGASTRODUODENOSCOPY Crohn's disease of both small and large intestine with intestinal obstruction (HCC) 05/22/2024 10:45 AM GOLD PLATER documented as of this encounter Procedures Procedure Name Priority Date/Time Associated Diagnosis Comments NEURO CT MR OUTSIDE REFERENCE Routine 01/17/2021 3:46 PM CDT Diagnosis unknown documented in this encounter Results * Neuro CT MR Outside Reference (01/17/2021 3:46 PM CDT) Impressions [facility] - 01/17/2021 3:46 PM CDT These images are for Reference purposes only and have not been reviewed by [facility] Radiology. ??There will be no report generated by a [facility] Radiologist. Narrative RAD_P[facility] - 01/17/2021 3:46 PM CDT EXAMINATION: ??Images For Reference Purposes Only Result [facility] Clifford Concepcion MD IMG CT PROCEDURES Final Result [facility] documented in this encounter Visit Diagnoses Not on filedocumented in this encounter Care Teams Garden Tractor Mechanic Relationship Specialty Start Date End Date Tip Armenta MD [address] [address] PCP - General Family Medicine 03/18/19 Eleanor Ramon MD [address] [facility] [address] [place] [address] Medical Oncologist/Scoring Machine Operator Hematology 07/12/20 documented as of this encounter
--- OUTSIDE RECORDS SUMMARY | 2024-05-18 22:16 | XMS_ITS | Encounter Summary ---
Author Organization [facility] Address [address] [place] [address] Phone Care Team Providers Care Press Loader Name Role Phone Luis Maya MD Primary Care Provider [phone] Encounter Details Date Type Department Care Team (Late st Contact Info) Description 03/10/2019 Orders Only [facility] Gastroenterology [address] [facility] 8th [place] [address] [place] [address] Nya Hand RN Esophageal yeast infection (CMS/HCC) Social History Tobacco Use Types Packs/Day Years Used Date Smoking Tobacco: Never Smokeless Tobacco: Never Sex and Gender Information Value Date Recorded Sex Assigned at Not on file Legal Sex Male 1:20 AM PLANT SCIENCE PROFESSOR Gender Identity Not on file Sexual Orientation Not on file documented as of this encounter Ordered Prescriptions Prescription Sig Dispense Quantity Refills Last Filled Start Date End Date nystatin 100,000 unit/mL suspensionIndicati ons:Esophageal yeast infection (CMS/HCC) (HCC) Take 5 ml PO 2 times daily,swish and swallow for 7 days 70 mL 1 03/10/2019 0 documented in this encounter Plan of Treatment Upcoming Encounters Date Type Department Care Team (Late st Contact Info) Description 05/22/2024 10:45 AM PLANT SCIENCE PROFESSOR Hospital Encounter [facility]oscopy [address] [place] [address] Nikolay Boucher MD [address] [place] [address] 05/22/2024 10:45 AM PLANT SCIENCE PROFESSOR - 05/22/2024 11:15 AM PLANT SCIENCE PROFESSOR Surgery [facility]oscopy [address] [place] [address] Nikolay Boucher MD [address] [place] [address] EGD Scheduled Procedures Name Priority Associated Diagnoses Date/Ti me ESOPHAGOGASTRODUODENOSCOPY Crohn's disease of both small and large intestine with intestinal obstruction (HCC) 05/22/2024 10:45 AM PLANT SCIENCE PROFESSOR documented as of this encounter Visit [...] PO 2 times daily,swish and swallow for 7 days Reorder 03/09/2019 03/10/2019 documented as of this encounter Care Teams Press Loader Relationship Specialty Start Date End Date Luis Maya MD [address] [place] [address] PCP - General 07/23/16 03/17/19 documented as of this encounter
--- OUTSIDE RECORDS SUMMARY | 2024-05-18 22:16 | XMS_ITS | Encounter Summary ---
Author Organization [facility] Address [address] [place] [address] Phone Care Team Providers Care Miniature Set Constructor Name Role Phone Tip Armenta MD Primary Care Provider [phone] Encounter Details Date Type Department Care Team (Late st Contact Info) Description 11/13/2019 Orders Only [facility] Gastroenterology [address] [facility] 8th [place] [address] [place] [address] Nya Hand RN Social History Tobacco Use Types Packs/Day Years Used Date Smoking Tobacco: Never Smokeless Tobacco: Never Sex and Gender Information Value Date Recorded Sex Assigned at Not on file Legal Sex Male 1:20 AM OFFICE ASSISTANT RECEPTIONIST Gender Identity Not on file Sexual Orientation Not on file documented as of this encounter Plan of Treatment Upcoming Encounters Date Type Department Care Team (Late st Contact Info) Description 05/22/2024 10:45 AM OFFICE ASSISTANT RECEPTIONIST Hospital Encounter [facility] Endoscopy [address] [place] [address] Nikolay Boucher MD [address] [place] [address] 05/22/2024 10:45 AM OFFICE ASSISTANT RECEPTIONIST - 05/22/2024 11:15 AM OFFICE ASSISTANT RECEPTIONIST Surgery [facility] Endoscopy [address] [address] [address] Nikolay Boucher MD [address] [place] [address] EGD Scheduled Procedures Name Priority Associated Diagnoses Date/Ti me ESOPHAGOGASTRODUODENOSCOPY Crohn's disease of both small and large intestine with intestinal obstruction (HCC) 05/22/2024 10:45 AM OFFICE ASSISTANT RECEPTIONIST documented as of this encounter Visit Diagnoses Not on filedocumented in this encounter Care Teams Miniature Set Constructor Relationship Specialty Start Date End Date Tip Armenta MD [address] [address] PCP - General Family Medicine 03/18/19 documented as of this encounter
--- OUTSIDE RECORDS SUMMARY | 2024-05-18 22:16 | XMS_ITS | Encounter Summary ---
Author Organization [facility] Address [address] [place] [address] Phone Care Team Providers Care Logistics Manager Name Role Phone Tip Armenta MD Primary Care Provider [phone] [phone] Encounter Details Date Type Department Care Team (Late st Contact Info) Description 11/16/2019 Orders Only [facility] Gastroenterology [address] [facility] Advanced Medicine 8th [place] [address] [place] [address] Nya Hand, RN Crohn's disease of small and large intestines with complication (CMS/HCC) Social History Tobacco Use Types Packs/Day Years Used Date Smoking Tobacco: Never Smokeless Tobacco: Never Sex and Gender Information Value Date Recorded Sex Assigned at Not on file Legal Sex Male 1:20 AM DIESEL MECHANIC APPRENTICE Gender Identity Not on file Sexual Orientation Not on file documented as of this encounter Ordered Prescriptions Prescription Sig Dispense Quantity Refills Last Filled Start Date End Date adalimumab (HUMIRA, CF, PEN) 40 mg/0.4 mL pen injector kitIndications:PA approved through [employer] starting 06/26/2019 through 06/26/2020 (2 pens per 28 days) Inject 0.4 mL (40 mg total) under the skin every 14 (fourteen) days SAFETY LABS REQUIRED EVERY 3 MONTHS FOR REFILLS DUE 01/2020 2 each 2 11/16/2019 0 documented in this encounter Plan of Treatment Upcoming Encounters Date Type Department Care Team (Late st Contact Info) Description 05/22/2024 10:45 AM DIESEL MECHANIC APPRENTICE Hospital Encounter [facility] Endoscopy [address] [place] [address] Nikolay Boucher MD [address] [place] [address] 05/22/2024 10:45 AM DIESEL MECHANIC APPRENTICE - 05/22/2024 11:15 AM DIESEL MECHANIC APPRENTICE Surgery [facility] Endoscopy [address] [place], [place] [address] Nikolay Boucher MD [address] [place] [address] EGD Scheduled Procedures Name Priority Associated Diagnoses Date/Ti me ESOPHAGOGASTRODUODENOSCOPY Crohn's disease of both small and large intestine with intestinal obstruction (HCC) 05/22/2024 10:45 AM DIESEL MECHANIC APPRENTICE documented as of this encounter Visit Diagnoses Diagnosis Crohn's disease of small and large intestines with complication (HCC) Crohn's disease of both small and large intestine with intestinal obstruction (HCC) documented in this encounter Discontinued Medications Medication Sig Discontinue Reason Start Date End Da te adalimumab (HUMIRA, CF, PEN) 40 mg/0.4 mL pen injector kitIndications:PA approved through [employer] starting 06/26/2019 through 06/26/2020 (2 pens per 28 days) Inject 0.4 mL (40 mg total) under the skin every 14 (fourteen) days SAFETY LABS REQUIRED EVERY 3 MONTHS FOR REFILLS DUE DEACON By end of 08/2019 for further REFILLS Reorder 09/03/2019 11/16/2019 documented as of this encounter Care Teams Logistics Manager Relationship Specialty Start Date End Date Tip Armenta MD [address] [address] PCP - General Family Medicine 03/18/19 documented as of this encounter
--- OUTSIDE RECORDS SUMMARY | 2024-05-18 22:16 | XMS_ITS | Encounter Summary ---
Author Organization [facility] Address [address] [place] [address] Phone Care Team Providers Care Vice President Payment Name Role Phone Tip Armenta MD Primary Care Provider [phone] [phone] Encounter Details Date Type Department Care Team (Late st Contact Info) Description 06/26/2019 Documentation [facility] Gastroenterology [address] [facility] Advanced [facility] 8th [place] [address] [place] [address] Sofia Talamantes Social History Tobacco Use Types Packs/Day Years Used Date Smoking Tobacco: Never Smokeless Tobacco: Never Sex and Gender Information Value Date Recorded Sex Assigned at Not on file Legal Sex Male 1:20 AM PULP BLEACHER Gender Identity Not on file Sexual Orientation Not on file documented as of this encounter Progress Notes * Sofia Talamantes - 06/26/2019 10:45 AM CST PA approved through [employer] starting 06/26/2019 through 06/26/2020 (2 pens per 28 days) PA submitted to [employer] for Humira (2 pens per 28 days) BLEACHER BLEACHER documented in this encounter Plan of Treatment Upcoming Encounters Date Type Department Care Team (Late st Contact Info) Description 05/22/2024 10:45 AM PULP BLEACHER Hospital Encounter [facility] Endoscopy [address] [place] [address] Nikolay Boucher MD [address] [place] [address] 05/22/2024 10:45 AM PULP BLEACHER - 05/22/2024 11:15 AM PULP BLEACHER Surgery [facility] Endoscopy [address] [place], [place] [address] Nikolay Boucher MD [address] [place] [address] EGD Scheduled Procedures Name Priority Associated Diagnoses Date/Ti me ESOPHAGOGASTRODUODENOSCOPY Crohn's disease of both small and large intestine with intestinal obstruction (HCC) 05/22/2024 10:45 AM PULP BLEACHER documented as of this encounter Visit Diagnoses Not on filedocumented in this encounter Care Teams Vice President Payment Relationship Specialty Start Date End Date Tip Armenta MD [address] [address] PCP - General Family Medicine 03/18/19 documented as of this encounter
--- OUTSIDE RECORDS SUMMARY | 2024-05-18 22:16 | XMS_ITS | Encounter Summary ---
Author Organization [facility] Address [address] [place] [address] Phone Care Team Providers Care Urban Anthropologist Name Role Phone Tip Armenta MD Primary Care Provider [phone] [phone] Encounter Details Date Type Department Care Team (Late st Contact Info) Description 07/11/2020 Orders Only [facility] Hematology [address] [facility] Advanced [facility] 7th [place] [address] [place] [address] Tamiko Chávez RN Social History Tobacco Use Types Packs/Day Years Used Date Smoking Tobacco: Never Smokeless Tobacco: Never Sex and Gender Information Value Date Recorded Sex Assigned at Not on file Legal Sex Male 1:20 AM PIG FARM MANAGER Gender Identity Not on file Sexual Orientation Not on file documented as of this encounter Plan of Treatment Upcoming Encounters Date Type Department Care Team (Late st Contact Info) Description 05/22/2024 10:45 AM PIG FARM MANAGER Hospital Encounter [facility] Endoscopy [address] [place] [address] Nikolay Boucher MD [address] [place] [address] 05/22/2024 10:45 AM PIG FARM MANAGER - 05/22/2024 11:15 AM PIG FARM MANAGER Surgery [facility] Endoscopy [address] [address] Nikolay Boucher MD [address] [place] [address] EGD Scheduled Procedures Name Priority Associated Diagnoses Date/Ti me ESOPHAGOGASTRODUODENOSCOPY Crohn's disease of both small and large intestine with intestinal obstruction (HCC) 05/22/2024 10:45 AM PIG FARM MANAGER documented as of this encounter Visit Diagnoses Not on filedocumented in this encounter Care Teams Urban Anthropologist Relationship Specialty Start Date End Date Tip Armenta MD [address] [address] PCP - General Family Medicine 03/18/19 documented as of this encounter
--- OUTSIDE RECORDS SUMMARY | 2024-05-18 22:16 | XMS_ITS | Encounter Summary ---
Author Organization [facility] Healthcare Address [facility] [place] [address] Care Team Providers Care Sanitation Worker Cleaning Equipment Name Role Phone Tip Armenta MD Primary Care Provider [phone] Eleanor Ramon MD Unavailable [phone] Encounter Details Date Type Department Care Team (Latest Contact Info) Description 01/17/2021 3:21 PM CDT - 01/17/2021 3:45 PM CDT Hospital Encounter [facility] [address] [place] [id number] Discharge Disposition: Discharge to home or [...] file Legal Sex Male 1:20 AM PLANT ANATOMY TEACHER Gender Identity Not on file Sexual [...] (Humira,CF, Pen) 40 mg/0.4 mL pen injector kitIndications:Dope Worker hn's disease of small and large intestines [...] PO QAM 2 07/14/201802/10 1 vit A-vit Q-vigg-eepvgibz 15 mg lozenge Take 1 tablet by mouth as needed 10/12/2016 2 documented as of this encounter Discharge Disposition Disposition Code Departure Means Destination Discharge to home or self care documented in this encounter Plan of Treatment Upcoming Encounters Date Type Department Care Team (Late st Contact Info) Description 05/22/2024 10:[address] [facility] Hospital Encounter [facility] Endoscopy [address] [address] Nikolay Boucher MD [address] [place] [address] 05/22/2024 10:45 AM PLANT ANATOMY TEACHER - 05/22/2024 11:[address] [facility] Surgery [facility] Endoscopy [address] [address] Nikolay Boucher MD [address] [place] [address] EGD Scheduled Procedures Name Priority Associated Diagnoses Date/Ti me ESOPHAGOGASTRODUODENOSCOPY Crohn's disease of both small and large intestine with intestinal obstruction (HCC) 05/22/2024 10:45 AM PLANT ANATOMY TEACHER documented as of this encounter Procedures Procedure Name Priority Date/Time Associated Diagnosis Comments NEURO CT MR OUTSIDE REFERENCE Routine 01/17/2021 3:21 PM CDT Diagnosis unknown documented in this encounter Results * Neuro CT MR Outside Reference (01/17/2021 3:21 PM CDT) Impressions [facility] - 01/17/2021 3:21 PM CDT These images are for Reference purposes only and have not been reviewed by [facility] Radiology. ??There will be no report generated by a [facility] Radiologist. Narrative [facility] - 01/17/2021 3:21 PM CDT EXAMINATION: ??Images For Reference Purposes Only Result [facility] Clifford Concepcion MD IMG CT PROCEDURES Final Result [facility] documented in this encounter Visit Diagnoses Not on filedocumented in this encounter Care Teams Sanitation Worker Cleaning Equipment Relationship Specialty Start Date End Date Tip Armenta MD [address] [address] PCP - General Family Medicine 03/18/19 Eleanor Ramon MD [address] [facility] [address] [place] [address] Medical Oncologist/Certification And Selection Specialist Hematology 07/12/20 documented as of this encounter
--- OUTSIDE RECORDS SUMMARY | 2024-05-18 22:16 | XMS_ITS | Encounter Summary ---
Author Organization [facility] Address [address] [place] [address] Phone Care Team Providers Care Cmm Programmer Name Role Phone Tip Armenta MD Primary Care Provider [phone] Eleanor Ramon MD Unavailable [phone] Encounter Details Date Type Department Care Team (Late st Contact Info) Description 07/12/2020 Orders Only [facility] Hematology [address] [facility] Advanced Medicine 7th [place] [address] [place] [id number] Tamiko Chávez, GUEVARA Iron deficiency anemia due to chronic blood loss (Primary Dx) Social History Tobacco Use Types Packs/Day Years Used Date Smoking Tobacco: Never Smokeless Tobacco: Never Sex and Gender Information Value Date Recorded Sex Assigned at Not on file Legal Sex Male 1:20 AM GLAZE GRINDER Gender Identity Not on file Sexual Orientation Not on file documented as of this encounter Plan of Treatment Upcoming Encounters Date Type Department Care Team (Late st Contact Info) Description 05/22/2024 10:45 AM GLAZE GRINDER Hospital Encounter [facility] Endoscopy [address] [place] [address] Nikolay Boucher MD [address] [place] [address] 05/22/2024 10:45 AM GLAZE GRINDER - 05/22/2024 11:15 AM GLAZE GRINDER Surgery [facility] Endoscopy [address] [address] Nikolay Boucher MD [address] [place] [address] EGD Scheduled Procedures Name Priority Associated Diagnoses Date/Ti or ESOPHAGOGASTRODUODENOSCOPY Crohn's disease of both small and large intestine with intestinal obstruction (HCC) 05/22/2024 10:45 AM GLAZE GRINDER documented as of this encounter Visit Diagnoses Diagnosis Iron deficiency anemia due to chronic blood loss- Primary Iron deficiency anemia secondary to blood loss (chronic) Crohn's disease of both small and large intestine with intestinal obstruction (HCC) documented in this encounter Orders Appointment Requests Count Last Ordered Date Fi rst Ordered Date ONCBCN INFUSION APPT REQUEST 1 07/19/2020 documented in this encounter Care Teams Cmm Programmer Relationship Specialty Start Date End Date Tip Armenta MD [address] [address] PCP - General Family Medicine 03/18/19 Eleanor Ramon MD [address] [place] [address] Medical Oncologist/Armature Inspector Hematology 07/12/20 documented as of this encounter
--- OUTSIDE RECORDS SUMMARY | 2024-05-18 22:16 | XMS_ITS | Encounter Summary ---
Author Organization [facility] Address [address] [place] [address] Phone Care Team Providers Care Last Puller Name Role Phone Tip Armenta MD Primary Care Provider [phone] Eleanor Ramon MD Unavailable [phone] Encounter Details Date Type Department Care Team (Late st Contact Info) Description 07/19/2020 Orders Only [facility] Gastroenterology [address] [facility] 8th [place] [address] [place] [address] Nya Hand RN Social History Tobacco Use Types Packs/Day Years Used Date Smoking Tobacco: Never Smokeless Tobacco: Never Sex and Gender Information Value Date Recorded Sex Assigned at Not on file Legal Sex Male 1:20 AM SEAT JOINER CHAINSTITCH Gender Identity Not on file Sexual Orientation Not on file documented as of this encounter Plan of Treatment Upcoming Encounters Date Type Department Care Team (Late st Contact Info) Description 05/22/2024 10:45 AM SEAT JOINER CHAINSTITCH Hospital Encounter [facility] Endoscopy [address] [place] [address] Nikolay Boucher MD [address] [place] [address] 05/22/2024 10:45 AM SEAT JOINER CHAINSTITCH - 05/22/2024 11:15 AM SEAT JOINER CHAINSTITCH Surgery [facility] Endoscopy [address] [address] Nikolay Boucher MD [address] [place] [address] EGD Scheduled Procedures Name Priority Associated Diagnoses Date/Ti me ESOPHAGOGASTRODUODENOSCOPY Crohn's disease of both small and large intestine with intestinal obstruction (HCC) 05/22/2024 10:45 AM SEAT JOINER CHAINSTITCH documented as of this encounter Visit Diagnoses Not on filedocumented in this encounter Care Teams Last Puller Relationship Specialty Start Date End Date Tip Armenta MD [address] [address] PCP - General Family Medicine 03/18/19 Eleanor Ramon MD [address] [place] [address] Medical Oncologist/Six Sigma Project Manager Hematology 07/12/20 documented as of this encounter
--- OUTSIDE RECORDS SUMMARY | 2024-05-18 22:16 | XMS_ITS | Encounter Summary ---
Author Organization [facility] Address [address] [place] [address] Phone Care Team Providers Care R D Internship Name Role Phone Tip Armenta MD Primary Care Provider [phone] Encounter Details Date Type Department Care Team (Late st Contact Info) Description 07/27/2019 Orders Only [facility] Gastroenterology [address] [facility] 8th [place] [address] [place] [address] Nya Hand RN Esophageal yeast infection (CMS/HCC) Social History Tobacco Use Types Packs/Day Years Used Date Smoking Tobacco: Never Smokeless Tobacco: Never Sex and Gender Information Value Date Recorded Sex Assigned at Not on file Legal Sex Male 1:20 AM DICE MAKER Gender Identity Not on file Sexual Orientation Not on file documented as of this encounter Ordered Prescriptions Prescription Sig Dispense Quantity Refills Last Filled Start Date End Date nystatin 100,000 unit/mL suspensionIndicati ons:Esophageal yeast infection (CMS/HCC) (HCC) Take 5 ml PO 2 times daily,swish and swallow for 14 days 140 mL 2 07/27/2019 0 documented in this encounter Plan of Treatment Upcoming Encounters Date Type Department Care Team (Late st Contact Info) Description 05/22/2024 10:45 AM DICE MAKER Hospital Encounter [facility] Endoscopy [address] [place] [address] Nikolay Boucher MD [address] [place] [address] 05/22/2024 10:45 AM DICE MAKER - 05/22/2024 11:15 AM DICE MAKER Surgery [facility] Endoscopy [address] [place] [address] Nikolay Boucher MD [address] [place] [address] EGD Scheduled Procedures Name Priority Associated Diagnoses Date/Ti me ESOPHAGOGASTRODUODENOSCOPY Crohn's disease of both small and large intestine with intestinal obstruction (HCC) 05/22/2024 10:45 AM DICE MAKER documented as of this encounter Visit [...] daily,swish and swallow for 7 days Reorder 03/10/2019 07/27/2019 documented as of this encounter Care Teams R D Internship Relationship Specialty Start Date End Date Tip Armenta MD [address] [address] PCP - General Family Medicine 03/18/19 documented as of this encounter
--- OUTSIDE RECORDS SUMMARY | 2024-05-18 22:16 | XMS_ITS | Encounter Summary ---
Author Organization [facility] Address [address] [place] [address] Phone Care Team Providers Care Line Builder Name Role Phone Tip Armenta MD Primary Care Provider [phone] Eleanor Ramon MD Unavailable Reason for Visit * Episode Based Medications (Routine) - Closed Specialty Diagnoses / Procedures Referred By Contac t Referred To Contact Oncology Diagnoses Other iron deficiency anemia Erythrocytosis Procedures ND INJ FERRIC CARBOXYMALTOS 1MG FERRIC CARBOXYMALTOSE (INJECTAFER) INFUSION Eleanor Ramon MD [address] [place] [address] Phone: tel: fax: [facility] Oncology [address] [place] [address] Phone: tel: Referral ID Status Reason Start Date Expiration Date Visits Re quested Visits Authorized [id number] Closed 04/03/2023 07/03/2023 1 12 Encounter Details Date Type Department Care Team (Late st Contact Info) Description 07/19/2020 7:30 AM LAWN MOWER OPERATOR Infusion [facility] Oncology [address] [facility] Medicine 7th [place] [address] Iron deficiency anemia due to chronic blood loss (Primary Dx); Erythrocytosis Social History Tobacco Use Types Packs/Day Years Used Date Smoking Tobacco: Never Smokeless Tobacco: Never Sex and Gender Information Value Date Recorded Sex Assigned at Not on file Legal Sex Male 1:20 AM LAWN MOWER OPERATOR Gender Identity Not on file Sexual Orientation Not on file documented as of this encounter Last Filed Vital Signs Vital Sign Reading Time Taken Comments Blood Pressure 130/78 07/19/2020 9:40 AM LAWN MOWER OPERATOR Pulse 68 07/19/2020 9:40 AM LAWN MOWER OPERATOR Temperature 36.8 ??C (98.2 ??F) 07/19/2020 9:40 AM CS T Respiratory Rate 18 07/19/2020 9:40 AM LAWN MOWER OPERATOR Oxygen Saturation 98% 07/19/2020 9:40 AM LAWN MOWER OPERATOR Inhaled Oxygen Concentration - - Weight 95.8 kg (211 lb 3.2 oz) 07/19/2020 7:38 A M LAWN MOWER OPERATOR Height - - Body Mass Index 27.86 03/18/2019 8:27 AM CDT documented in this encounter Nursing Notes * Lu Short RN - 07/19/2020 7:30 AM CST Patient tolerated Injectafer infusion well. 1 hour observation completed. No reactions noted. VSS. Patient discharged ambulatory. MOWER OPERATOR documented in this encounter Plan of Treatment Upcoming Encounters Date Type Department Care Team (Late st Contact Info) Description 05/22/2024 10:45 AM LAWN MOWER OPERATOR Hospital Encounter [facility] Endoscopy [address] [place] [address] Nikolay Boucher MD [address] [place] [address] 05/22/2024 10:45 AM LAWN MOWER OPERATOR - 05/22/2024 11:15 AM LAWN MOWER OPERATOR Surgery [facility] Endoscopy [address] [address] Nikolay Boucher MD [address] [place] [address] EGD Scheduled Procedures Name Priority Associated Diagnoses Date/Ti me ESOPHAGOGASTRODUODENOSCOPY Crohn's disease of both small and large intestine with intestinal obstruction (HCC) 05/22/2024 10:45 AM LAWN MOWER OPERATOR documented as of this encounter Visit Diagnoses Diagnosis Iron deficiency anemia due to chronic blood loss- Primary Iron deficiency anemia secondary to blood loss (chronic) Erythrocytosis Polycythemia, secondary Crohn's disease of both [...] mL/hr, Administer over 20 Minutes, Once, On Sat07/19/20 at 0830, For 1 doseIndications:Iron deficiency anemia due to chronic blood loss,Erythrocytosis New Bag 07/19/2020 8:16 AM LAWN MOWER OPERATOR 750 mg 795 mL/hr documented in this encounter Orders Medications Ordered That Leon ht Not Have Been Administered Count Last Ordered Date First Ordered Date acetaminophen (TYLENOL) tablet 650 mg 1 diphenhydrAMINE (BENADRYL) tab/cap 25 mg 1 07/19/2020 ondansetron (ZOFRAN) tablet 4 mg 1 07/19/19 21 Nursing Count Last Ordered Date First Orde red Date 1:1 OBSERVATION 1 07/19/2020 Appointment Requests Count Last Ordered Date Fi rst Ordered Date ONCBCN INFUSION APPT REQUEST 1 07/19/2020 documented in this encounter Care Teams Line Builder Relationship Specialty Start Date End Date Tip Armenta MD [address] [address] PCP - General Family Medicine 03/18/19 Eleanor Ramon MD [address] [place] [address] Medical Oncologist/Rail Director Hematology 07/12/20 documented as of this encounter
--- OUTSIDE RECORDS SUMMARY | 2024-05-18 22:16 | XMS_ITS | Encounter Summary ---
Author Organization [facility] Healthcare Address [address] [place] [address] Care Team Providers Care Webbing Supervisor Name Role Phone Tip Armenta MD Primary Care Provider [phone] Eleanor Ramon MD Unavailable Encounter Details Date Type Department Care Team (Late st Contact Info) Description 12/30/2020 5:48 AM CDT - 12/30/2020 8:19 AM CDT Hospital Encounter [facility] Endoscopy [address] [place] [address] Roxanna Valenzuela MD [address] [place], [place] [id number] High risk medications (not anticoagulants) long-term use (Primary Dx); Crohn's disease of both small and large intestine with intestinal obstruction (CMS/HCC) (HCC); Crohn's disease of both small and large intestine without complication (CMS/HCC) (HCC) Discharge Disposition: Discharge to home or self [...] on file Legal Sex Male 1:20 AM MAIL MESSENGER Gender Identity Not on file Sexual Orientation Not on file documented as of this encounter Last Filed Vital Signs Vital Sign Reading Time Taken Comments Blood Pressure 105/64 12/30/2020 7:55 AM CDT Pulse 78 12/30/2020 7:55 AM CDT Temperature 36.1 ??C (97 ??F) 12/30/2020 7:40 AM CDT Respiratory Rate 27 12/30/2020 7:55 AM CDT Oxygen Saturation 100% 12/30/2020 7:55 AM CDT Inhaled Oxygen Concentration - - Weight 94.3 kg (208 lb) 12/30/2020 6:10 AM CDT Height 185.4 cm (6' 1 ) 12/30/2020 6:10 AM CDT Body Mass Index 27.44 12/30/2020 6:10 AM CDT documented in this encounter Discharge Diagnoses Diagnosis Crohn's disease of both small and large intestine without complications (HCC) - CROHN'S DISEASE OF BOTH SMALL AND LARGE INTESTINE WITHOUT COMPLICATIONS Diaphragmatic hernia without obstruction or gangrene - DIAPHRAGMATIC HERNIA WITHOUT OBSTRUCTION OR GANGRENE Diaphragmatic hernia without mention of obstruction or gangrene Esophagitis, unspecified without bleeding - ESOPHAGITIS, UNSPECIFIED WITHOUT BLEEDING Dysphagia, unspecified - DYSPHAGIA, UNSPECIFIED Intestinal bypass and anastomosis status - INTESTINAL BYPASS AND ANASTOMOSIS STATUS Latex allergy status - LATEX ALLERGY STATUS Other care home (current) drug therapy - OTHER PATTERN WEAVER (CURRENT) DRUG THERAPY documented in this encounter Medications at Time [...] (eight) hours as needed 5 02/09/[address] (CYMBALTA) 30 mg capsule [...] 14 days 140 mL 2 03/28/2020 2 venlafaxine XR (EFFEXOR-XR) 37.5 mg 24 hr capsule TK 1 C PO QAM 2 07/14/201802/10 1 vit A-vit C-fwwh-qdwqbhoj 15 mg lozenge Take 1 tablet by mouth as needed 10/12/2016 2 documented as of this encounter Discharge Disposition Disposition Code Departure Means Destination Discharge to home or self care documented in this encounter H&P Notes * Roxanna Valenzuela MD - 12/29/2020 2:12 PM CDT Pre Endoscopy History and Physical Mello Talley is a 55 y.o. male who is here for Procedure(s): COLONOSCOPY ESOPHAGOGASTRODUODENOSCOPY The indication(s) for the procedure(s): ibd. No past medical history on file. No past surgical history on file. Social History Tobacco Use ??? Smoking status: Never Smoker ??? Smokeless tobacco: Never Used Substance Use Topics ??? Alcohol use: Not on file Family History Problem Relation Age of Onset ??? No Known Problems Mother ??? No Known Problems Father Allergies Allergen Reactions ??? Latex Rash Prior to Admission medications Medication Sig Start Date End Date Taking? Authorizing Provider acetaminophen-codeine (TYLENOL with CODEINE #3) 300-30 mg per tablet 02/09/18 ProviderShaun MD adalimumab (Humira,CF, Pen) 40 mg/0.4 mL pen injector kit Inject 0.4 mL (40 mg total) under the skin every 14 (fourteen) days Safety labs required every 3 months for med refills, labs due DEACON. 11/30/20 Roxanna Valenzuela MD ALPRAZolam (XANAX) 1 mg tablet TK 1/2 TO 1 T PO BID PRF ANXIETY 11/21/17 ProviderShaun MD BD SAFETYGLIDE SYRINGE 3 mL 23 x 1 syringe U UTD 11/26/18 Shaun Chavarria MD CIALIS 20 mg tablet TK 1 T PO QD PRN 11/26/17 Shaun Chavarria MD cyanocobalamin (Vitamin B-12) 1,000 mcg/mL injection INJECT 1 ML Q 2 WEEKS UTD 12/10/17 Shaun Chavarria MD diphenoxylate-atropine (LOMOTIL) 2.5-0.025 mg per tablet TK 1 TO 2 TS PO BID PRN 06/19/18 Shaun Chavarria MD DUL[address] (CYMBALTA) 30 mg capsule TAKE ONE C BY MOUTH DAILY 06/23/18 Shaun Chavarria MD ergocalciferol (VITAMIN D) 50,000 unit capsule Take 1 cap PO one day a month 09/15/18 Roxanna Valenzuela MD folic acid (FOLVITE) 1 mg tablet TK 1 T PO D UTD 10/25/17 Shaun Chavarria MD hydroCHLOROthiazide (HYDRODIURIL) 25 mg tablet daily. Shaun Chavarria MD hyoscyamine (LEVSIN) 0.125 mg tablet Take 1 tab PO every 6 hours as needed for spasms 07/18/20 Roxanna Valenzuela MD lansoprazole (PREVACID) 15 mg capsule Take 15 mg by mouth 10/12/16 Shaun Chavarria MD losartan (COZAAR) 25 mg tablet TK 1 T PO ONCE D 11/25/17 Shaun Chavarria MD magnesium oxide,aspartate,citr (TRIPLE MAGNESIUM COMPLEX) 400 mg capsule Take 1 capsule by mouth 10/12/16 Shaun Chavarria MD montelukast (SINGULAIR) 10 mg tablet TK 1 T PO QD 07/10/18 Shaun Chavarria MD nystatin 100,000 unit/mL suspension Take 5 ml PO 2 times daily,swish and swallow for 14 days 03/28/20 Roxanna Valenzuela MD ondansetron (ZOFRAN) 8 mg tablet TK 1 T PO TID PRN 12/01/17 Shaun Chavarria MD testosterone cypionate (DEPO-TESTOTERONE) 200 mg/mL injection INJ 1 ML IM Q WK 11/29/17 Shaun Chavarria MD venlafaxine XR (EFFEXOR-XR) 37.5 mg 24 hr capsule TK 1 C PO QAM 07/14/18 Shaun Chavarria MD vit A-vit R-uhrs-olbtqsue (ZINC WITH VITAMINS A AND C) 15 mg lozenge Take 1 tablet by mouth 10/12/16Shaun Chavarria MD zolpidem (AMBIEN) 10 mg tablet TK 1 T PO Q HS PRN 12/13/17 Shaun Chavarria MD Review of Systems [...] in this encounter Procedure Notes * Roxanna Valenzuela MD - 12/30/2020 7:17 AM CDTAssociated Order(s): COLONOSCOPY ENDOSCOPY LAB Patient Name: Mello Talley Procedure Date: 12/30/2020 7:17 AM Date of : 1965 Admit Type: Outpatient Age: 55 Gender: Male Attending MD: Roxanna Valenzuela M.D. Room: [facility] ENDOSCOPY ROOM 01 Note Status: Finalized Procedure: Colonoscopy Indications: Disease activity assessment of Crohn's disease of the small bowel and colon on Humira Q14d Providers: Roxanna Valenzuela M.D. Referring MD: Tip Armenta M.D. Medicines: [...] scope was passed under direct vision. The [id number] was introduced through the anus and advanced to 20 cm into the ileum. The colonoscopy was performed without difficulty. The patient tolerated the procedure well. The quality of the bowel preparation was poor. Bowel prep was administered using a split dose. Findings: The perianal and digital rectal examinations were normal. Pertinent negatives include no palpable rectal lesions. Normal mucosa was found in the entire colon. A moderate amount of semi-liquid stool was found in the entire colon, interfering with visualization. There was evidence of a prior end-to-side ileo-colonic anastomosis in the proximal transverse colon. This was patent and was characterized by erosion. The anastomosis was traversed. The terminal ileum appeared normal. No additional abnormalities were found on retroflexion. Impression: - Preparation of the colon was poor. - Normal mucosa in the entire examined colon. - Stool in the entire examined colon. - Patent end-to-side ileo-colonic anastomosis, characterized by erosion. - The examined portion of the ileum was normal. - No specimens collected. Recommendation: - Return to GI clinic. - Additional preparation with the next colonoscopy (magnesium citrate on the morning of the next procedure) - Mucosal remission - Contact Information: During normal business hours - Please call the Nurse Coordinator: [phone] After hours, evening, nights, weekends and holidays - Please call the hospital bearing press machine operator at and ask for the GI fellow batting machine operator insulation. Attending Participation: I personally performed the entire procedure. Electronically signed by Roxanna Valenzuela M.D. Roxanna Valenzuela M.D. 12/30/2020 7:41:30 AM Number of Addenda: 0 Note Initiated On: 12/30/2020 7:17 AM * Roxanna Valenzuela MD - 12/30/2020 7:02 AM CDTAssociated Order(s): EGD ENDOSCOPY LAB Patient Name: eMllo Talley Procedure Date: 12/30/2020 7:02 AM Date of : 1965 Admit Type: Outpatient Age: 55 Gender: Male Attending MD: Roxanna Valenzuela M.D. Room: [facility] ENDOSCOPY ROOM 01 Note Status: Finalized Procedure: Upper GI endoscopy Indications: Dysphagia, on QD high dose PPI Providers: Roxanna Valenzuela M.D. Referring MD: Tip Armenta M.D. Medicines: Monitored Anesthesia Care Complications: No immediate complications. Estimated Blood Loss: Estimated blood loss: none. Procedure: Pre-Anesthesia Assessment: - The risks and benefits of the procedure and the sedation options and risks were discussed with the patient. All questions were answered and informed consent was obtained. - Pre-procedure physical examination revealed no contraindications to sedation. After obtaining informed consent, the endoscope was passed under direct vision. Throughout the procedure, the patient's blood pressure, pulse, and oxygen saturations were monitored continuously. The [id number] was introduced through the mouth, and advanced to the second part of duodenum. The upper GI endoscopy was accomplished without difficulty. The patient tolerated the procedure well. Findings: The Z-line was regular and was found 38 cm from the incisors. A 4 cm hiatal hernia was present. There was a small shelf located at the proximal margin .The shelf was disrupted with the biopsy forceps. Normal mucosa was found in the entire esophagus. Biopsies were taken with a cold forceps for histology. The stomach was normal. The examined duodenum was normal. The cardia and gastric fundus were normal on retroflexion. Impression: - Z-line regular, 38 cm from the incisors. - 4 cm hiatal hernia. A minimal shelf was noted and was disrupted with the biopsy forceps. - Normal mucosa was found in the entire esophagus. Biopsied. - Normal stomach. - Normal examined duodenum. Recommendation: - Contact Information: During normal business hours - Please call the Nurse Coordinator: [phone] After hours, evening, nights, weekends and holidays - Please call the hospital bearing press machine operator at and ask for the GI fellow batting machine operator insulation. - Increase PPI x 4 wks - Await pathology results. Attending Participation: I personally performed the entire procedure. Electronically signed by Roxanna Valenzuela M.D. Roxanna Valenzuela M.D. 12/30/2020 7:17:15 AM Number of Addenda: 0 Note Initiated On: 12/30/2020 7:02 AM documented in this encounter Miscellaneous Notes * Pre-Procedure Instructions - Lukas Oliveira RN - 12/28/2020 2:23 PM CDT Please follow any instruction you have been give re:Bowel prep. Come to [facility] main entrance. There is a small koi drive at the entrance with free dust collector treater parking or you may park in front of the building. As you enter there will be an information desk, let them know you are here for a procedure. You will be directed to the elevator in [facility]. Once on elevator press button for procedure level or LL-Thatwill take you down one level into the registration area. One registered you will have a seat and one of the endoscopy nurses will come to get you ready for your procedure. For your safety all staff are screened and will be wearing a mask. Dress comfortably, leave any valuables at home, specifically gaspar, jewelry. Please bring photo ID, any insurance cards. Please use morning inhaler as directed For your safety due to the anesthesia, you won't be able to drive. Please have a ride arranged to and from the hospital w/a responsible adult. This must be someone who knows you and can care for you-please no form of public transportation or medical transport by yourself will be allowed. According to [facility] guidelines for your safety and the safety of others you are allowed one person to accompany you, no one under the age of 16 will be allowed into the building. You and this person will be screened for COVID-19 exposure, symptoms, fever. You and this person are required to wear a mask at all times, if you do not have one, one will be provided for you. The person who accompanies you may wait in car if they so choose. They are allowed to wait for you in waiting room or cafe where seating is cleaned between use and chairs are spaced for distancing. Thank you in advance for your patience and understanding documented in this encounter Plan of Treatment Upcoming Encounters Date Type Department Care Team (Late st Contact Info) Description 05/22/2024 10:45 AM MAIL MESSENGER Hospital Encounter [facility] Endoscopy [address] [place] [address] Nikolay Boucher MD [address] [place] [address] 05/22/2024 10:45 AM MAIL MESSENGER - 05/22/2024 11:15 AM MAIL MESSENGER Surgery [facility] Endoscopy [address] [place] [address] Nikolay Boucher MD [address] [place] [address] EGD Scheduled Procedures Name Priority Associated Diagnoses Date/Ti me ESOPHAGOGASTRODUODENOSCOPY Crohn's disease of both small and large intestine with intestinal obstruction (HCC) 05/22/2024 10:45 AM MAIL MESSENGER documented as of this encounter Procedures Procedure Name Priority Date/Time Associated Diagnosis Comments COLONOSCOPY 12/30/2020 7:17 AM CDT SURGICAL PATHOLOGY Routine 12/30/2020 7:06 AM CDT Crohn's disease of both small and large intestine without complication (CMS/HCC) (HCC) EGD 12/30/2020 7:02 AM CDT ESOPHAGOGASTRODUODENOSCOPY BIOPSY 12/30/2020 6:59 AM CDT Crohn's disease of both small and large intestine without complication (CMS/HCC) (HCC) COLONOSCOPY 12/30/2020 6:59 AM CDT Crohn's disease of both small and large intestine without complication (CMS/HCC) (HCC) T-SPOT.TB Routine 12/30/2020 6:45 AM CDT High risk medications (not anticoagulants) long-term use Crohn's disease of both small and large intestine with intestinal obstruction (CMS/HCC) (HCC) HEPATIC FUNCTION PANEL Routine 6:45 AM CDT High risk medications (not anticoagulants) long-term use Crohn's disease of both small and large intestine with intestinal obstruction (CMS/HCC) (HCC) documented in this encounter Results * COLONOSCOPY (12/30/2020 7:17 AM CDT) Anatomical Region Laterality Modality Other Narrative Procedure Note Roxanna Valenzuela MD - 12/30/2020 7:17 AM CDT ENDOSCOPY LAB Patient Name: Mello Talley Procedure Date: 12/30/2020 7:17 AM Date of : 1965 Admit Type: Outpatient Age: 55 Gender: Male Attending MD: Roxanna Valenzuela M.D. Room: [facility] ENDOSCOPY ROOM 01 Note Status: Finalized Procedure: Colonoscopy Indications: Disease activity assessment of Crohn's disease ofthe small bowel and colon on Humira Q14d Providers: Roxanna Valenzuela M.D. Referring MD: Tip Armenta M.D. Medicines: [...] The scope was passed under direct vision.The [id number] was introduced through the anusand advanced to 20 cm into the ileum. The colonoscopywas performed without difficulty. The patient tolerated the procedure well. The quality of the bowel preparation was poor. Bowel prep was administered using a split dose. Findings: The perianal and digital rectal examinations were normal. Pertinent negatives include no palpable rectal lesions. Normal mucosa was found in the entire colon. A moderate amount of semi-liquid stool was found in the entire colon, interfering with visualization. There was evidence of a prior end-to-side ileo-colonic anastomosis in the proximal transverse colon. This was patent and was characterizedby erosion. The anastomosis was traversed. The terminal ileum appeared normal. No additional abnormalities were found on retroflexion. Impression: - Preparation of the colon was poor. - Normal mucosa in the entire examined colon. - Stool in the entire examined colon. - Patent end-to-side ileo-colonic anastomosis, characterized by erosion. - The examined portion of the ileum was normal. - No specimens collected. Recommendation: - Return to GI clinic. - Additional preparation with the next colonoscopy (magnesium citrate on the morning of the next procedure) - Mucosal remission - Contact Information: During normal business hours - Please call theNurse Coordinator: [phone] After hours, evening, nights, weekends and holidays- Please call the hospital bearing press machine operator at and ask for the GI fellow batting machine operator insulation. Attending Participation: I personally performed the entire procedure. Electronically signed by Roxanna Valenzuela M.D. Roxanna Valenzuela M.D. 12/30/2020 7:41:30 AM Number of Addenda: 0 Note Initiated On: 12/30/2020 7:17 AM us Roxanna Valenzuela MD ENDOSCOPY PROCEDURE S Final Result * Surgical pathology (12/30/2020 7:06 AM CDT) Tissue (Esophageal biopsy) 12/30/2020 7:06 AM CDT Narrative PATHOLOGY [facility] - 01/02/2021 7:59 PM CDT EPIC results best viewed via link to PDF [facility] [place] [address] Note to Patients: This report may contain a detailed description of human tissue sent by a health care provider to the laboratory for pathologic evaluation. The content of this report is essential for diagnosis and may provide important critical findings. This information may be unfamiliar to patients to review without a medical professional present. It is advised that the patient review this report in the presence of a health care provider who can answer questions and explain the details. SURGICAL PATHOLOGY REPORT FINAL Patient Name: ?? MELLO TALLEY Gender: ??M : ??1965 (Age: 55) Address: ??[address] ??[address] Hospital #: ??[id number] Taken:12/30/2020 Received:12/30/2020 Reported: 01/02/2021 Patient Type: WC SDS Client ?[facility] Service: Gastro Location: [facility] Physician(s): ??Janis Catalan M.D. Diagnosis: Esophagus, distal, biopsy ? - Squamous mucosa with mild chronic inflammation including rare eosinophils, and reactive epithelial changes, consistent with reflux esophagitis - No acute inflammation, granulomas, ulcers, or microorganisms - No intestinal metaplasia, dysplasia, or malignancy fnk/01/01/2021 15:36 By this signature, I attest that the above diagnosis is based upon my personal examination of the slides(and/or other material indicated in the diagnosis). Kelvin Holland MD Report Electronically Reviewed and Signed Out By ??Kelvin Holland MD 01/02/2021 19:59:17 Microscopic Description and Comment: Microscopic examination substantiates the above cited diagnosis. Microscopic slide review and interpretation for this case was performed at [facility], Department of Surgical Pathology, [address] [facility] [address] [place] [id number], ??[place], [place] ??[address] ?? CLIA # [id number] HEENA Ruiz History: The patient is a 55-year-old man with Crohn's disease. ??Operative procedure: Colonoscopy and upper GI endoscopy. ?? Specimen(s) Received: A: Lower esophagus Gross Description: The specimen is received in a single formalin filled container, labeled with the patient's identifiers, and lower esophagus biopsies of forceps. ??It holds multiple irregular pale mulligan soft tissue fragments measuring 1.8 x 0.4 x 0.1 cm in aggregate. Stained with hematoxylin. ??Labeled A1. ??Jar 0. cnewho/12/30/2020 09:57 PA(s): ABRAHAM Hester, CT (ASC) By this signature, I attest that the above diagnosis is based upon my personal examination of the slides(and/or other material). Addenda/Procedures The performance characteristics of some immunohistochemical stains, fluorescence in-situ hybridization tests and immunophenotyping by flow cytometry cited in this report (if any) were determined by the Surgical Pathology and Flow Cytometry Departments at [facility] as part of an ongoing environmental quality analyst program and in compliance with federally mandated regulations drawn from the Clinical Laboratory Improvement Act of 1988 (CLIA '88). ??Some of these tests rely on the use of analyte specific reagents and are subject to specific labeling requirements by the US Food and Drug Administration. ??Such diagnostic tests may only be performed in a facility that is certified by the Department of Health and Human Services as a high complexity laboratory under CLIA '88. ??The FDA has determined that such clearance or approval is not necessary. ??This test is used for clinical purposes. ??It should not be regarded as investigational or for research. ??Nevertheless, federal rules concerning the medical use of analyte specific reagents require that the following disclaimer be attached to the report: This test was developed and its performance characteristics determined by the Surgical Pathology and Flow Cytometry Departments of [facility]. ??It has not been cleared or approved by the U. S. Food and Drug Administration. IMAGES AND SCANNED DOCUMENTS, IF INCLUDED, ONLY VIEWABLE IN PDF VERSION OF REPORT us Roxanna Valenzuela MD LAB PATHOLOGY ORDER [place] Final Result PATHOLOGY [facility] [phone] * EGD (12/30/2020 7:02 AM CDT) Anatomical Region Laterality Modality Other Narrative Procedure Note Roxanna Valenzuela MD - 12/30/2020 7:02 AM CDT ENDOSCOPY LAB Patient Name: Mello Talley Procedure Date: 12/30/2020 7:02 AM Date of : 1965 Admit Type: Outpatient Age: 55 Gender: Male Attending MD: Roxanna Valenzuela M.D. Room: [facility] ENDOSCOPY ROOM 01 Note Status: Finalized Procedure: Upper GI endoscopy Indications: Dysphagia, on QD high dose PPI Providers: Roxanna Valenzuela M.D. Referring MD: Tip Armenta M.D. Medicines: Monitored Anesthesia Care Complications: No immediate complications. Estimated Blood Loss: Estimated blood loss: none. Procedure: Pre-Anesthesia Assessment: - The risks and benefits of the procedure and the sedation options and risks were discussed with the patient. All questions were answered and informed consent was obtained. - Pre-procedure physical examination revealed no contraindications to sedation. After obtaining informed consent, the endoscope was passed under direct vision. Throughout theprocedure, the patient's blood pressure, pulse, and oxygen saturations were monitored continuously. The [id number] was introduced through the mouth, and advanced to the second part of duodenum. Theupper GI endoscopy was accomplished without difficulty.The patient tolerated the procedure well. Findings: The Z-line was regular and was found 38 cm from the incisors. A 4 cm hiatal hernia was present. There was a small shelf located atthe proximal margin .The shelf was disrupted with the biopsy forceps. Normal mucosa was found in the entire esophagus. Biopsies were taken with a cold forceps for histology. The stomach was normal. The examined duodenum was normal. The cardia and gastric fundus were normal on retroflexion. Impression: - Z-line regular, 38 cm from the incisors. - 4 cm hiatal hernia. A minimal shelf was noted and was disrupted with the biopsy forceps. - Normal mucosa was found in the entire esophagus. Biopsied. - Normal stomach. - Normal examined duodenum. Recommendation: - Contact Information: During normal business hours - Please call theNurse Coordinator: [phone] After hours, evening, nights, weekends and holidays- Please call the hospital bearing press machine operator at and ask for the GI fellow batting machine operator insulation. - Increase PPI x 4 wks - Await pathology results. Attending Participation: I personally performed the entire procedure. Electronically signed by Roxanna Valenzuela M.D. Roxanna Valenzuela M.D. 12/30/2020 7:17:15 AM Number of Addenda: 0 Note Initiated On: 12/30/2020 7:02 AM Roxanna Valenzuela MD ENDOSCOPY PROCEDURE S Final Result * T-SPOT.TB (12/30/2020 6:45 AM CDT) [facility] T-SPOT.TB Negative SeeBelow AMANDA HICKEY Comment: Normal Value: Negative A negative test [...] quantitative test. T-SPOT.TB Panel A Spot Count 1 AMANDA HICKEY T-SPOT.TB Panel B Spot Count 1 AMANDA HICKEY T-SPOT.TB Negative Control Passed AMANDA HICKEY T-SPOT.TB Positive Control Passed AMANDA HICKEY Comment: Test Performed at: [facility] [place], [place] ??[address] ? LALITO MUIR MD,PHD Blood specimen (specimen) 12/30/2020 6:45 AM CDT 12/30/2020 6:54 AM CDT Roxanna Valenzuela MD LAB MICROBIOLOGY - GENERAL ORDERABLES Final Result AMANDA [facility] [address] [facility]. Department [place] [address] * (ABNORMAL) Hepatic function panel (12/30/2020 6:45 AM CDT) Bilirubin, total 1.9(H) 0.1 - 1.2 mg/dL [facility] Bilirubin, direct 0.3 0.1 - 0.3 mg/dL [facility] Protein, pl 7.5 6.5 - 8.5 g/dL [facility] Albumin 4.6 3.5 - 5.0 g/dL [facility] Alk phos 118 40 - 130 Units/L [facility] ALT 30 7 - 55 Units/L [facility] AST 35 10 - 50 Units/L [facility] Blood specimen (specimen) 12/30/2020 6:45 AM CDT 12/30/2020 6:54 AM CDT Roxanna Valenzuela MD LAB BLOOD ORDERABLE S Final Result AMANDA DONAHUE [address] [facility] [place] [address] documented in this encounter Visit Diagnoses Diagnosis [...] MAR Action Action Date Dose Rate Site sodium chloride 0.9% flush 0.5-20 mL 0.5-20 mL, intra-catheter, As needed, line care, Starting on Sat12/30/20 at 0613, Pre-Procedure (GI), Flush volume based on line type and size. Flush before and after each use. , Indications: FlushingIndications:Flushin g sodium chloride 0.9% infusion 30 mL/hr, intravenous, Continuous, Starting on Sat12/30/20 at 0645, Pre-Procedure (GI) Rate/Dose Verify 12/30/2020 7:00 AM CDT 30 mL/hr New Bag 12/30/2020 6:51 AM CDT 30 mL/hr 30 mL/hr documented in this encounter Active and Recently Administered Medications Times are shown in CDT. Continuous Medication Order 12/28/2020 12/29/2020 12/30/2020 sodium chloride 0.9% infusion 30 mL/hr, intravenous, Continuous, Starting on Sat12/30/20 at 0645, Pre-Procedure (GI) 0651 (New Bag - Prov ider: Rosa Amin RN)0700 (Rate/Dose Verify - Provider: Roxanna Valenzuela MD)0732 (Anesthesia Volume Adjustment - Provider: Lashell Palmer CRNA) PRN Medication Order 12/28/2020 12/29/2020 12/30/2020 sodium chloride 0.9% flush 0.5-20 mL 0.5-20 mL, intra-catheter, As needed, line care, Starting on Sat12/30/20 at 0613, Pre-Procedure (GI), Flush volume based on line type and size. Flush before and after each use. , Indications: Flushing documented in this encounter Orders Medications Ordered That Leon ht Not Have Been Administered Count Last Ordered Date First Ordered Date sodium chloride 0.9% flush 0.5-20 mL 1 10/2020 documented in this encounter Care Teams Webbing Supervisor Relationship Specialty Start Date End Date Tip Armenta MD [address] [address] PCP - General Family Medicine 03/18/19 Eleanor Ramon MD [address] [facility] [address] [place] [address] Medical Oncologist/Saas Architect Hematology 07/12/20 documented as of this encounter
--- OUTSIDE RECORDS SUMMARY | 2024-05-18 22:16 | XMS_ITS | Encounter Summary ---
Author Organization [facility] Address [address] [place] [address] Phone Care Team Providers Care Sales Promotion Director Name Role Phone Tip Armenta MD Primary Care Provider [phone] Eleanor Ramon MD Unavailable [phone] Encounter Details Date Type Department Care Team (Latest Contact Info) Description 11/04/2019 Orders Only [facility] Scanning, Provider Social History Tobacco Use Types Packs/Day Years Used Date Smoking Tobacco: Never Smokeless Tobacco: Never Sex and Gender Information Value Date Recorded Sex Assigned at Not on file Legal Sex Male 1:20 AM MASTER DATA ANALYST Gender Identity Not on file Sexual Orientation Not on file documented as of this encounter Plan of Treatment Upcoming Encounters Date Type Department Care Team (Late st Contact Info) Description 05/22/2024 10:45 AM MASTER DATA ANALYST Hospital Encounter [facility] [address] [place] [address] Nikolay Boucher MD [address] [place] [address] 05/22/2024 10:45 AM MASTER DATA ANALYST - 05/22/2024 11:15 AM MASTER DATA ANALYST Surgery [facility] [address] [place] [address] Nikolay Boucher MD [address] [place] [address] EGD Scheduled Procedures Name Priority Associated Diagnoses Date/Ti me ESOPHAGOGASTRODUODENOSCOPY Crohn's disease of both small and large intestine with intestinal obstruction (HCC) 05/22/2024 10:45 AM MASTER DATA ANALYST documented as of this encounter Procedures Procedure Name Priority Date/Time Associated Diagnosis Comments SCAN - LABS 11/04/2019 documented in this encounter Results * SCAN - LABS (11/04/2019) us Provider Scanning Final Result documented in this encounter Visit Diagnoses Not on filedocumented in this encounter Care Teams Sales Promotion Director Relationship Specialty Start Date End Date Tip Armenta MD [address] [address] PCP - General Family Medicine 03/18/19 Eleanor Ramon MD [address] [place] [address] Medical Oncologist/Manager Art Hematology 07/12/20 documented as of this encounter
--- OUTSIDE RECORDS SUMMARY | 2024-05-18 22:16 | XMS_ITS | Encounter Summary ---
Author Organization [facility] Address [address] [place] [address] Phone Care Team Providers Care Category Analyst Name Role Phone Tip Armenta MD Primary Care Provider [phone] Eleanor Ramon MD Unavailable [phone] Encounter Details Date Type Department Care Team (Late st Contact Info) Description 07/18/2020 Orders Only [facility] Hematology [address] [facility] 7th [place] [address] [place] [id number] Tamiko Chávez, GUEVARA Social History Tobacco Use Types Packs/Day Years Used Date Smoking Tobacco: Never Smokeless Tobacco: Never Sex and Gender Information Value Date Recorded Sex Assigned at Not on file Legal Sex Male 1:20 AM DEVELOPMENT VICE PRESIDENT Gender Identity Not on file Sexual Orientation Not on file documented as of this encounter Plan of Treatment Upcoming Encounters Date Type Department Care Team (Late st Contact Info) Description 05/22/2024 10:45 AM DEVELOPMENT VICE PRESIDENT Hospital Encounter [facility] Endoscopy [address] [place] [address] Nikolay Boucher MD [address] [place] [address] 05/22/2024 10:45 AM DEVELOPMENT VICE PRESIDENT - 05/22/2024 11:15 AM DEVELOPMENT VICE PRESIDENT Surgery [facility] Endoscopy [address] [place] [address] Nikolay Boucher MD [address] [place] [address] EGD Scheduled Procedures Name Priority Associated Diagnoses Date/Ti me ESOPHAGOGASTRODUODENOSCOPY Crohn's disease of both small and large intestine with intestinal obstruction (HCC) 05/22/2024 10:45 AM DEVELOPMENT VICE PRESIDENT documented as of this encounter Visit Diagnoses Not on filedocumented in this encounter Care Teams Category Analyst Relationship Specialty Start Date End Date Tip Armenta MD [address] [address] PCP - General Family Medicine 03/18/19 Eleanor Ramon MD [address] [place] [address] Medical Oncologist/Pulper Tender Hematology 07/12/20 documented as of this encounter
--- OUTSIDE RECORDS SUMMARY | 2024-05-18 22:16 | XMS_ITS | Encounter Summary ---
Author Organization [facility] Address [address] [place] [address] Care Team Providers Care Hand Suture Winder Name Role Phone Tip Armenta MD Primary Care Provider [phone] Eleanor Ramon MD Unavailable [phone] Encounter Details Date Type Department Care Team (Late st Contact Info) Description 12/30/2020 7:00 AM CDT Anesthesia Event [facility] Endoscopy [address] [place] [address] Valentín Brand MD [address] [facility] [address] [place] [address] Anesthesia Record Procedure Summary Procedure Name Responsible Anesthesiologist Anesthesia Start Time Anesthesia Stop Time COLONOSCOPY (Colon) Valentín Brand MD 12/30/20 0700 12/30/20 0740 Events Date Time Event Comment 12/30/2020 0634 AN Equip Check 0653 0659 In Room 0700 An Start 0700 An Start Data 0701 Start Supplemental O2 0704 Patient Positioned Laterally 0704 An Induction The patient was reevaluated immediately before moderate or deep sedation use and before anesthesia induction. 0704 Anesthesia Ready 0705 Proc Start 0732 Proc Fin 0735 an stop data 0735 Out of Room 0740 Handoff to RN I completed my handoff [...] Patient disposition at the time of handoff: No value filed. 0740 An Stop Meds Name Total propofol 430 mg Lidocaine IV 2 % 5 mL phenylephrine 0.1 mg/mL syringe 300 mcg sodium chloride 0.9% infusion 900 mL * Agents Name O2 * Blood No blood administrations on file. Lines, Drains, and Airways Type Details Placement Removal Peripheral IV Placement Date: 06/28 08/14; Placement Time: 075; Catheter Size: 22 G; Orientation: Left, Posterior; Location: Forearm; Site Prep: Alcohol; Technique: Anatomical landmarks; Inserted by: carrie; Insertion Attempts: 1; Patient Tolerance: Tolerated well; Removal Date: 12/30/20; Removal Time: 0646; Removal Reason: Not present on admission 07/19/20 0758 by Lu Short RN 12/30/20 0646 by Rosa Amin RN Peripheral IV Placement Date: 11/14; Placement Time: 645; Catheter Size: 20 G; Orientation: Right; Location: Hand; Site Prep: Chlorhexidine; Insertion Attempts: 1; Patient Tolerance: Tolerated well; Removal Date: 01/20/22; Removal Time: 0203; Removal Reason: Not present on admission 12/30/20 0646 by Rosa Amin RN 01/20/22 0203 by Rylie Hurtado RN documented in this encounter Social History [...] on file Legal Sex Male 1:20 AM GED TUTOR Gender Identity Not on file Sexual Orientation Not on file documented as of this encounter OR Notes * Anesthesia Postprocedure Evaluation - Valentín Brand MD - 12/30/2020 8:14 AM CDT Patient: Mello Herbert Procedure Summary Date: 12/30/20 Room / Location: [facility] END[facility] ROOM [facility] Anesthesia Start: 0700 Anesthesia Stop: 739 Procedures: COLONOSCOPY (N/A Colon) ESOPHAGOGASTRODUODENOSCOPY BIOPSY (N/A ) Diagnosis: Crohn's disease of both small and large intestine without complication (CMS/HCC) (HCC) (Crohn's disease of both small and large intestine) Providers: Roxanna Valenzuela MD Responsible Provider: Valentín Brand MD Anesthesia Type: general ASA Status: 2 Anesthesia Type: general Last vitals BP 105/64 Pulse 78 Temp 36.1 ??C (97 ??F) (Tympanic) Resp 27 SpO2 100% Anesthesia Post Evaluation Patient location during evaluation: PACU Patient participation: complete - patient participated Level of consciousness: fully awake Pain score: 0 Pain management: adequate Airway patency: adequate Evidence of recall: no Cardiovascular status: hemodynamically stable and acceptable Respiratory status: acceptable and room air Hydration status: acceptable Pt is: normothermic Nausea/Vomiting status: none No complications documented. * Anesthesia Preprocedure Evaluation - Valentín Brand MD - 12/30/2020 6:53 AM CDT Images from the original note were not included. Anesthesia Evaluation Mello Herbert is a 55 y.o. male Procedure(s): COLONOSCOPY ESOPHAGOGASTRODUODENOSCOPY Pre-Op Diagnosis Codes: * Crohn's disease of both small and large intestine without complication (CMS/HCC) (HCC) [K50.80] Patient Active Problem List Diagnosis ??? Iron deficiency anemia due to chronic blood loss ??? Erythrocytosis ??? Crohn's disease of both small and large intestine (HCC) ??? Vitamin B12 deficiency ??? Chronic diarrhea ??? High risk medications (not anticoagulants) long-term use Past Medical History: Diagnosis Date ??? Crohn's colitis (CMS/HCC) (HCC) Past Surgical History: Procedure Laterality Date ??? SMALL BOWEL RESECTION Allergies Allergen Reactions ??? Latex Rash Med List Status: Nurse Complete Set By: Rosa Amin RN at 12/30/2020 6:28 AM Taking? Last Dose Start Date End Date Provider acetaminophen-codeine (TYLENOL with CODEINE #3) 300-30 mg per tablet 02/09/18 -- Shaun Chavarria MD adalimumab (Humira,CF, Pen) 40 mg/0.4 mL pen injector kit Past Week 11/30/20 -- Roxanna Valenzeula MD Inject 0.4 mL (40 mg total) under the skin every 14 (fourteen) days Safety labs required every 3 months for med refills, labs due DEACON. Notes: Only authorizing 30 day fill as pt is overdue for repeat safety labs. Thanks! ALPRAZolam (XANAX) 1 mg tablet 12/29/2020 11/21/17 -- Shaun Chavarria MD BD SAFETYGLIDE SYRINGE 3 mL 23 x 1 syringe Past Week 11/26/18 -- Shaun Chavarria MD CIALIS 20 mg tablet Past Week 11/26/17 -- Shaun Chavarria MD cyanocobalamin (Vitamin B-12) 1,000 mcg/mL injection Past Week 12/10/17 -- Shaun Chavarria MD diphenoxylate-atropine (LOMOTIL) 2.5-0.025 mg per tablet Past Week 06/19/18 -- Shaun Chavarria MD DULoxetine DR (CYMBALTA) 30 mg capsule Unknown 06/23/18 -- Shaun Chavarria MD ergocalciferol (VITAMIN D) 50,000 unit capsule Past Week 09/15/18 -- Roxanna Valenzuela MD Take 1 cap PO one day a month folic acid (FOLVITE) 1 mg tablet Past Week 10/25/17 -- Shaun Chavarria MD hydroCHLOROthiazide (HYDRODIURIL) 25 mg tablet Past Month -- -- Shaun Chavarria MD hyoscyamine (LEVSIN) 0.125 mg tablet Past Week 07/18/20 -- Roxanna Valenzuela MD Take 1 tab PO every 6 hours as needed for spasms lansoprazole (PREVACID) 15 mg capsule 12/29/2020 10/12/16 -- Shaun Chavarria MD losartan (COZAAR) 25 mg tablet 12/30/2020 11/25/17 -- Shaun Chavarria MD magnesium oxide,aspartate,citr (TRIPLE MAGNESIUM COMPLEX) 400 mg capsule 12/29/2020 10/12/16 -- Shaun Chavarria MD montelukast (SINGULAIR) 10 mg tablet Past Month 07/10/18 -- Shaun Chavarria MD nystatin 100,000 unit/mL suspension Past Week 03/28/20 -- Roxanna Valenzuela MD Take 5 ml PO 2 times daily,swish and swallow for 14 days ondansetron (ZOFRAN) 8 mg tablet Past Week 12/01/17 -- Shaun Chavarria MD testosterone cypionate (DEPO-TESTOTERONE) 200 mg/mL injection Past Week 11/29/17 -- Shaun Chavarria MD venlafaxine XR (EFFEXOR-XR) 37.5 mg 24 hr capsule Unknown 07/14/18 -- Shaun Chavarria MD vit A-vit D-dloe-dmvkleru (ZINC WITH VITAMINS A AND C) 15 mg lozenge Unknown 10/12/16 -- Shaun Chavarria MD zolpidem (AMBIEN) 10 mg tablet Past Month 12/13/17 -- Shaun Chavarria MD Current Facility-Administered Medications: ??? sodium chloride 0.9% flush 0.5-20 mL, 0.5-20 mL, intra-catheter, PRN ??? sodium chloride 0.9% infusion, 30 mL/hr, intravenous, Continuous, Last Rate: 30 mL/hr at 12/30/20 0651, 30 mL/hr at 12/30/20 0651 Social History Tobacco Use Smoking Status Never Smoker Smokeless Tobacco Never Used Substance and Sexual Activity Alcohol Use Not on file Substance and Sexual Activity Drug Use Not on file Family History Problem Relation Age of Onset ??? No Known Problems Mother ??? No Known Problems Father Vitals: 12/30/20 0635 12/30/20 0640 12/30/20 0645 BP: 143/96 154/98 152/97 Pulse: 81 88 82 Resp: 12 18 24 Temp: SpO2: 96% 98% 97% PT: No results found for requested labs within last 720 hours. INR: No results found for requested labs within last 720 hours. APTT: No results found for requested labs within last 720 hours. Hgb A1C: No results found for requested labs within last 720 hours. CBC RBC: 12/17/2020: 5.15 M/cumm RDW: No results found for requested labs within last 720 hours. MCHC: 12/17/2020: 32.5 g/dL MCH: 12/17/2020: 29.3 pg MCV: 12/17/2020: 90.3 fL Hct: 12/17/2020: 46.5 % Hgb: 12/17/2020: 15.1 g/dL WBC: 12/17/2020: 8.8 K/cumm MPV: 12/17/2020: 9.4 fL Platelets: 12/17/2020: 273 K/cumm RDW CV: 12/17/2020: 14.2 % RDW Sd: 12/17/2020: 46.4 fL BMP Glucose: 12/17/2020: 102 mg/dL Calcium: 12/17/2020: 9.4 mg/dL Sodium: 12/17/2020: 138 mmol/L Potassium: 12/17/2020: 5.2 mmol/L* CO2: 12/17/2020: 28 mmol/L Chloride: 12/17/2020: 102 mmol/L BUN: 12/17/2020: 20 mg/dL Creatinine: 12/17/2020: 1.40 mg/dL* DOS Physical Exam Medical history, medications, and allergies reviewed. Attestation: This PAT evaluation Airway Exam: Mallampati: III Cervical ROM: FROM Cardiovascular Exam: Rate: regular Rhythm: regular Pulmonary Exam: LCTA, bilat Anesthesia Plan ASA 2 My patient is approved for the Anesthesia Controlled Medication protocol when under care of a MINI BACCARAT DEALER Planned anesthesia: General Informed Consent: Anesthesia plan [...] st Contact Info) Description 05/22/2024 10:45 AM GED TUTOR Hospital Encounter [facility] [address] [address] [place], [place] [address] Nikolay Boucher MD [address] [place] [address] 05/22/2024 10:45 AM GED TUTOR - 05/22/2024 11:15 AM GED TUTOR Surgery [facility] [address] [place] [address] Nikolay Boucher MD [address] [place] [address] EGD Scheduled Procedures Name Priority Associated Diagnoses Date/Ti nv ESOPHAGOGASTRODUODENOSCOPY Crohn's disease of both small and large intestine with intestinal obstruction (HCC) 05/22/2024 10:45 AM GED TUTOR documented as of this encounter Visit Diagnoses Not on filedocumented in this encounter Administered Medications Inactive Administered Medications - up to 3 most recent administrations Medication Order MAR Action Action Date Dose Rate Site lidocaine (XYLOCAINE) 20 mg/mL (2 %) injection intravenous, As needed, Starting on Sat12/30/20 at 0704, Anesthesia Intra-op, Indications: Administration of Local AnesthesiaIndications:Administrat ion of Local Anesthesia Given 12/30/2020 7:04 AM CDT 5 mL phenylephrine (SANDHYA-SYNEPHRINE) 1 mg/10 mL (100 mcg/mL) in sodium chloride 0.9% (premix) intravenous, As needed, Starting on Sat12/30/20 at 0718, Anesthesia Intra-op Given 12/30/2020 7:32 AM CDT 100 mcg Given 12/30/2020 7:18 AM CDT 200 mcg propofoL (DIPRIVAN) 10 mg/mL IV intravenous, As needed, Starting on Sat12/30/20 at 0708, Anesthesia Intra-op Given 12/30/2020 7:25 AM CDT 30 mg Given 12/30/2020 7:21 AM CDT 50 mg Given 12/30/2020 7:20 AM CDT 50 mg sodium chloride 0.9% infusion 30 mL/hr, intravenous, Continuous, Starting on Sat12/30/20 at 0645, Pre-Procedure (GI) Rate/Dose Verify 12/30/2020 7:00 AM CDT 30 mL/hr New Bag 12/30/2020 6:51 AM CDT 30 mL/hr 30 mL/hr documented in this encounter Care Teams Hand Suture Winder Relationship Specialty Start Date End Date Tip Armenta MD [address] [address] PCP - General Family Medicine 03/18/19 Eleanor Ramon MD [address] [facility] [address] [place] [address] Medical Oncologist/Tint Layer Hematology 07/12/20 documented as of this encounter
--- OUTSIDE RECORDS SUMMARY | 2024-05-18 22:16 | XMS_ITS | Encounter Summary ---
Author Organization [facility] Address [address] [place] [address] Phone Care Team Providers Care Agricultural Extension Educator Name Role Phone Tip Armenta MD Primary Care Provider [phone] Encounter Details Date Type Department Care Team (Late st Contact Info) Description 07/04/2020 Orders Only [facility] Hematology [address] [facility] 7th [place] [address] [place] [address] Tamiko Chávez, GUEVARA Iron deficiency anemia due to chronic blood loss (Primary Dx) Social History Tobacco Use Types Packs/Day Years Used Date Smoking Tobacco: Never Smokeless Tobacco: Never Sex and Gender Information Value Date Recorded Sex Assigned at Not on file Legal Sex Male 1:20 AM BULK DRIVER Gender Identity Not on file Sexual Orientation Not on file documented as of this encounter Progress Notes * Tamiko Castillo, GUEVARA - 07/04/2020 9:01 AM CST Patient called requesting labs to be drawn as he is feeling fatigued. Patient requested to have labs drawn at [facility]. Patient also requested that he be scheduled for a telemed visit, I stated we wouldschedule him for an appt with Cristal Longoria NP for telemed. Patient is agreeable to plan and verbalized understanding. DRIVER documented in this encounter Plan of Treatment Upcoming Encounters Date Type Department Care Team (Late st Contact Info) Description 05/22/2024 10:45 AM BULK DRIVER Hospital Encounter [facility] Endoscopy [address] [place] [address] Nikolay Boucher MD [address] [place] [address] 05/22/2024 10:45 AM BULK DRIVER - 05/22/2024 11:15 AM BULK DRIVER Surgery [facility] Endoscopy [address] [place], [place] [address] Nikolay Boucher MD [address] [place] [address] EGD Scheduled Procedures Name Priority Associated Diagnoses Date/Ti me ESOPHAGOGASTRODUODENOSCOPY Crohn's disease of both small and large intestine with intestinal obstruction (HCC) 05/22/2024 10:45 AM BULK DRIVER documented as of this encounter Procedures Procedure Name Priority Date/Time Associated Diagnosis Comments IRON PROFILE W/ IBC Routine 07/05/2020 1 0:05 AM BULK DRIVER Iron deficiency anemia due to chronic blood loss CBC WITH AUTO DIFFERENTIAL Routine 07/05/2020 10:05 AM BULK DRIVER Iron deficiency anemia due to chronic blood loss ZINC Routine 07/05/2020 10:05 AM BULK DRIVER Iron deficiency anemia due to chronic blood loss VITAMIN D 25 HYDROXY Routine 07/05/2020 10:05 AM BULK DRIVER Iron deficiency anemia due to chronic blood loss RETICULOCYTES Routine 07/05/2020 10:05 AM BULK DRIVER Iron deficiency anemia due to chronic blood loss FERRITIN Routine 07/05/2020 10:05 AM BULK DRIVER Iron deficiency anemia due to chronic blood loss VITAMIN B12 Routine 07/05/2020 10:05 AM BULK DRIVER Iron deficiency anemia due to chronic blood loss HEPATIC FUNCTION PANEL Routine 10:05 AM BULK DRIVER Iron deficiency anemia due to chronic blood loss documented in this encounter Results * Hepatic function panel (07/05/2020 10:05 AM BULK DRIVER) Pathologist [facility] Protein, Total 7.4 6.4 - 8.4 g/dL [facility] Albumin 4.3 3.6 - 5.1 g/dL [facility] Globulin 3.1 2.2 - 4.0 g/dL (calc) [facility] Alb/glob ratio 1.4 0.9 - 2.3 (calc) [facility] Bilirubin, total 0.8 0.2 - 1.2 mg/dL [facility] Bilirubin, direct 0.2 < OR = 0.2 mg/dL [facility] Bilirubin, indirect 0.6 0.2 - 1.2 mg/dL (calc) [facility] Alk phos 81 35 - 144 U/L [facility] AST 30 10 - 35 U/L [facility] ALT (SGPT) 26 9 - 46 U/L [facility] Blood specimen (specimen) 07/05/2020 10:05 AM BULK DRIVER 07/05/2020 10:05 AM BULK DRIVER Narrative [facility] - 07/09/2020 11:12 AM BULK DRIVER FASTING:YES FASTING: YES Eleanor Ramon MD LAB BLOOD ORDERABLES Final Result [facility] [address] [place] [address] * (ABNORMAL) Vitamin D 25 hydroxy (07/05/2020 10:05 AM BULK DRIVER) Pathologist [facility] Vitamin D 25-OH 20(L) 30 - 100 ng/mL [facility] Comment: Vitamin D Status ? 25-OH Vitamin D: Deficiency: ?<20 ng/mL Insufficiency: ? 20 - 29 ng/mL Optimal: ? > or = 30 ng/mL For 25-OH Vitamin D testing on patients on D2-supplementation and patients for whom quantitation of D2 and D3 fractions is required, the [facility]ure[facility](TM) 25-OH VIT D, (D2,D3), LC/MS/MS is recommended: order code 42114 (patients >2yrs). See Note 1 Note 1 For additional information, please refer to http://education.Hotlease.Com/faq/LSI717 (This link is being provided for informational/ educational purposes only.) Blood specimen (specimen) 07/05/2020 10:05 AM BULK DRIVER 07/05/2020 10:05 AM BULK DRIVER Narrative [facility] - 07/09/2020 11:12 AM BULK DRIVER FASTING:YES FASTING: YES Eleanor Ramon MD LAB BLOOD ORDERABLES Final Result Performing Organization Address [facility]/ZIP Co de Phone Number [facility] [address] [place] [address] * Zinc (07/05/2020 10:05 AM BULK DRIVER) [facility] ZINC 74 60 - 130 mcg/dL [facility] Comment: This test was developed and its analytical performance characteristics have been determined by [facility]. It has not been cleared or approved by the FDA. This assay has been validated pursuant to the CLIA regulations and is used for clinical purposes. Blood specimen (specimen) 07/05/2020 10:05 AM BULK DRIVER 07/05/2020 10:05 AM BULK DRIVER Narrative [facility] - 07/09/2020 11:12 AM BULK DRIVER FASTING:YES FASTING: YES Eleanor Ramon MD LAB BLOOD ORDERABLES Final Result Performing Organization Address City/[facility]/ZIP Co de Phone Number [facility] [address] [place] [address] * (ABNORMAL) Vitamin B12 (07/05/2020 10:05 AM BULK DRIVER) Vitamin B12 1,569(H) 200 - 1,100 pg/mL [facility] Blood specimen (specimen) 07/05/2020 10:05 AM BULK DRIVER 07/05/2020 10:05 AM BULK DRIVER Narrative [facility] - 07/09/2020 11:12 AM BULK DRIVER FASTING:YES FASTING: YES Eleanor Ramon MD LAB BLOOD ORDERABLES Final Result Performing Organization Address [facility] de Phone Number [facility] [address] [place] [address] * Reticulocyte Count (07/05/2020 10:05 AM BULK DRIVER) [facility] Reticulocyte count, automated 1.7 % [facility] Reticulocyte, absolute 87,890 25,000 - 90,000 cells/uL [facility] Blood specimen (specimen) 07/05/2020 10:05 AM BULK DRIVER 07/05/2020 10:05 AM BULK DRIVER Narrative [facility] - 07/09/2020 11:12 AM BULK DRIVER FASTING:YES FASTING: YES Eleanor Ramon MD LAB BLOOD ORDERABLES Final Result Performing Organization Address [facility] de Phone Number [facility] [address] [place] [address] * (ABNORMAL) Iron profile w/ IBC (07/05/2020 10:05 AM BULK DRIVER) Pathologist [facility] Iron 46(L) 50 - 180 mcg/dL [facility] TIBC 356 250 - 425 mcg/dL (calc) [facility] Iron saturation 13(L) 20 - 48 % (calc) [facility] Blood specimen (specimen) 07/05/2020 10:05 AM BULK DRIVER 07/05/2020 10:05 AM BULK DRIVER Narrative [facility] - 07/09/2020 11:12 AM BULK DRIVER FASTING:YES FASTING: YES Eleanor Ramon MD LAB BLOOD ORDERABLES Final Result Performing Organization Address [facility] Co de Phone Number [facility] [address] [place] [address] * (ABNORMAL) Ferritin (07/05/2020 10:05 AM BULK DRIVER) Pathologist [facility] Ferritin 13(L) 38 - 380 ng/mL [facility] Blood specimen (specimen) 07/05/2020 10:05 AM BULK DRIVER 07/05/2020 10:05 AM BULK DRIVER Narrative [facility] - 07/09/2020 11:12 AM BULK DRIVER FASTING:YES FASTING: YES Eleanor Ramon MD LAB BLOOD ORDERABLES Final Result Performing Organization Address [facility] de Phone Number [facility] [address] [place] [address] * CBC with auto differential (07/05/2020 10:05 AM BULK DRIVER) [facility] WBC 7.6 3.8 - 10.8 Thousand/u L [facility] RBC, POC 5.17 4.20 - 5.80 Million/uL [facility] Hgb 14.5 13.2 - 17.1 g/dL [facility] Hct 44.5 38.5 - 50.0 % [facility] MCV 86.1 80.0 - 100.0 fL [facility] MCH 28.0 27.0 - 33.0 pg [facility] MCHC 32.6 32.0 - 36.0 g/dL [facility] Rdw 14.7 11.0 - 15.0 % [facility] Platelets 268 140 - 400 Thousand/u L [facility] MPV 9.9 7.5 - 12.5 fL [facility] Neutrophils, abs 5,328 1,500 - 7,800 cells/uL [facility] Lymphocytes, abs 1,391 850 - 3,900 cells/uL [facility] Monocyte abs 707 200 - 950 cells/uL [facility] Eosinophils, abs 122 15 - 500 cells/uL [facility] Basophils, abs 53 0 - 200 cells/uL [facility] Neutrophils 70.1 % [facility] Lymphocyte pct 18.3 % [facility] Monocytes 9.3 % [facility] Eosinophils 1.6 % [facility] Basophils 0.7 % [facility] Blood specimen (specimen) 07/05/2020 10:05 AM BULK DRIVER 07/05/2020 10:05 AM BULK DRIVER Narrative [facility] - 07/09/2020 11:12 AM BULK DRIVER FASTING:YES FASTING: YES us Eleanor Ramon MD LAB BLOOD ORDERABLES Final Result [facility] [address] [place] [address] documented in this encounter Visit Diagnoses Diagnosis Iron deficiency anemia due to chronic blood loss- Primary Iron deficiency anemia secondary to blood loss (chronic) Crohn's disease of both small and large intestine with intestinal obstruction (HCC) documented in this encounter Care Teams Agricultural Extension Educator Relationship Specialty Start Date End Date Tip Armenta MD [address] [address] PCP - General Family Medicine 03/18/19 documented as of this encounter
--- OUTSIDE RECORDS SUMMARY | 2024-05-18 22:16 | XMS_ITS | Encounter Summary ---
Author Organization [facility] Healthcare Address [address] [place] [address] Care Team Providers Care Trade Mark Attorney Name Role Phone Tip Armenta MD Primary Care Provider [phone] Eleanor Ramon MD Unavailable [phone] Reason for Visit * Reason Comments Foreign Body Encounter Details Date Type Department Care Team (Late st Contact Info) Description 12/17/2020 11:39 AM CDT - 12/17/2020 3:15 PM CDT Emergency [facility] Emergency Department [address] [place] [id number] Food impaction of esophagus, initial encounter (Primary Dx) Discharge Disposition: Discharge to home or self care Social History Tobacco Use Types Packs/Day Years Used Date Smoking Tobacco: Never Smokeless Tobacco: Never Sex and Gender Information Value Date Recorded Sex Assigned at Not on file Legal 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 Gender Identity Not on file Sexual Orientation Not on file documented as of this encounter Last Filed Vital Signs Vital Sign Reading Time Taken Comments Blood Pressure 130/80 12/17/2020 3:15 PM CDT Pulse 70 12/17/2020 3:15 PM CDT Temperature 36.3 ??C (97.4 ??F) 12/17/2020 9:14 AM CD T Respiratory Rate 20 12/17/2020 3:15 PM CDT Oxygen Saturation 97% 12/17/2020 3:15 PM CDT Inhaled Oxygen Concentration - - Weight 92.5 kg (203 lb 14.8 oz) 12/17/2020 9:14 AM CDT Height 185.4 cm (6' 1 ) 12/17/2020 9:14 AM CDT Body Mass Index 26.9 12/17/2020 9:14 AM CDT documented in this encounter Discharge Instructions * Discharge Instructions* Leatha Tucker PA - 12/17/2020 3:04 PM CDT Have a soft diet until you see the GI specialist. Follow-up with GI early next week. Avoid foods such as chicken, beef, pork until you see a GI specialist. Return to the ED immediately with any new or worsening symptoms. Also follow-up with your primary care doctor. * Attachments The following attachments cannot be sent through Care Everywhere. 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 2 each 11/30/[address] (CYMBALTA) 30 mg capsule [...] PO QAM 2 07/14/201802/10 1 vit A-vit T-juya-mzaryzox 15 mg lozenge Take 1 tablet by mouth as needed 10/12/2016 2 documented as of this encounter Discharge Disposition Disposition Code Departure Means Destination Discharge to home or self care documented in this encounter ED Notes * Oseas Chavira RN - 12/17/2020 1:56 PM CDT Third PO challenge with Di Mist per PA's order passed following administration of ordered glucagon x 3 and ordered lorazepam. Oseas Chavira RN. Oseas Chavira RN 12/17/20 1356 * Oseas Chavira RN - 12/17/2020 1:14 PM CDT Pt failed PO challenge x 2. POLLO Zhang notified by this RN. POC reviewed with pt at bs. Oseas Chavira RN. Oseas Chavira RN 12/17/20 1314 * Leatha Tucker PA - 12/17/2020 11:52 AM CDT HPI Chief Complaint Patient presents with ??? Foreign Body HPI 11:52 AM Mello Herbert is a 55 y.o. male presenting to the ED c/o a food bolus stuck in his throat. Patient states he ate chicken last night at about 1800 and choked on it. Has not been able to keepany fluids down since that time. Feels like the chicken is stuck in his throat. Patient also describes a burning/acid reflux sensation in his chest. He has had acid reflux before and received a GI cocktail which helped. Medical history significant for hypertension and Crohn's. His GI specialist is Dr. Suman Valenzuela in [place]. Patient History: Medical history: HTN, Crohn's No past surgical history on file. Family History Problem Relation Age of Onset ??? No Known Problems Mother ??? No Known Problems Father Social History Tobacco Use ??? Smoking status: Never Smoker ??? Smokeless tobacco: Never Used Substance Use Topics ??? Alcohol use: Not on file ??? Drug use: Not on file No current facility-administered medications for this encounter. Current Outpatient Medications: ??? acetaminophen-codeine (TYLENOL with CODEINE #3) 300-30 mg per tablet ??? adalimumab (Humira,CF, Pen) 40 mg/0.4 mL pen injector kit ??? ALPRAZolam (XANAX) 1 mg tablet ??? BD SAFETYGLIDE SYRINGE 3 mL 23 x 1 syringe ??? CIALIS 20 mg tablet ??? cyanocobalamin (Vitamin B-12) 1,000 mcg/mL injection ??? diphenoxylate-atropine (LOMOTIL) 2.5-0.025 mg per tablet ??? DULoxetine DR (CYMBALTA) 30 mg capsule ??? ergocalciferol (VITAMIN D) 50,000 unit capsule ??? folic acid (FOLVITE) 1 mg tablet ??? hydroCHLOROthiazide (HYDRODIURIL) 25 mg tablet ??? hyoscyamine (LEVSIN) 0.125 mg tablet ??? lansoprazole (PREVACID) 15 mg capsule ??? losartan (COZAAR) 25 mg tablet ??? magnesium oxide,aspartate,citr (TRIPLE MAGNESIUM COMPLEX) 400 mg capsule ??? montelukast (SINGULAIR) 10 mg tablet ??? nystatin 100,000 unit/mL suspension ??? ondansetron (ZOFRAN) 8 mg tablet ??? testosterone cypionate (DEPO-TESTOTERONE) 200 mg/mL injection ??? venlafaxine XR (EFFEXOR-XR) 37.5 mg 24 hr capsule ??? vit A-vit W-ionl-cgjwlryw (ZINC WITH VITAMINS A AND C) 15 mg lozenge ??? zolpidem (AMBIEN) 10 mg tablet Review of Systems Review of Systems All systems reviewed and are neg or non contributory for this patients presentation today other than as stated in the HPI . Physical Exam ED Triage Vitals Temp Pulse Resp BP SpO2 12/17/20 0914 12/17/20 0914 12/17/20 0914 12/17/20 0914 12/17/20 0914 36.3 ??C (97.4 ??F) 69 20 159/95 98 % Temp src Heart Rate Source Patient Position BP Location FiO2 (%) 12/17/20 0914 12/17/20 1142 12/17/20 1142 12/17/20 1142 -- Temporal Monitor Lying Left arm Physical Exam Vitals reviewed. Constitutional: Appearance: Normal appearance. Comments: Patient is holding emesis bag. Tolerating his secretions. HENT: Head: Normocephalic and atraumatic. Eyes: Conjunctiva/sclera: Conjunctivae normal. Cardiovascular: Rate and Rhythm: Normal rate and regular rhythm. Heart sounds: Normal heart sounds. Pulmonary: Effort: Pulmonary effort is normal. No respiratory distress. Breath sounds: Normal breath sounds. Abdominal: General: Bowel sounds are normal. Palpations: Abdomen is soft. Tenderness: There is no abdominal tenderness. Musculoskeletal: General: Normal range of motion. Cervical back: Normal range of motion. Skin: General: Skin is warm and dry. Neurological: Mental Status: He is alert and oriented to person, place, and time. Psychiatric: Mood and Affect: Mood normal. Behavior: Behavior normal. Procedures MDM Labs Reviewed COMPREHENSIVE METABOLIC PANEL - Abnormal Result Value Sodium 138 Potassium, pl 5.2 (*) Chloride 102 CO2 28 Anion gap 8 BUN 20 Creatinine 1.40 (*) Glucose 102 Calcium 9.4 Bilirubin, total 1.0 Protein, pl 7.7 Albumin 4.8 Alk phos 111 ALT 22 AST 34 CBC WITH AUTO DIFFERENTIAL WBC 8.8 Hgb 15.1 Hct 46.5 Plt 273 MPV 9.4 RBC 5.15 MCV 90.3 MCH 29.3 MCHC 32.5 RDW CV 14.2 RDW SD 46.4 NRBC abs 0.00 DIFFERENTIAL AUTO Neutrophil abs 6.4 Imm gran abs 0.1 Lymphocyte abs 1.5 Monocyte abs 0.8 Eosinophil abs 0.1 Basophil abs 0.0 Neutrophil pct 72.5 Imm gran pct 0.6 Lymphocyte pct 16.5 Monocyte pct 9.0 Eosinophil pct 0.9 Basophil pct 0.5 EGFR GFR 56 EKG: rate of 78. Normal sinus rhythm. Normal EKG. Reviewed by Dr. Diaz. CT Neck Soft Tissue W Contrast Final Result 1. ??No radiopaque foreign body is seen about the neck. 2. ??No acute inflammatory change is seen about the neck. 3. ??On the most distal images obtained on this exam is fluid seen in the esophagus of the upper chest. ??This is a nonspecific finding. ??This can be seen in reflux. ??Consider imaging of the chest to ensure no prominent fluid-filled esophagus or more distal obstruction given the history. BP 130/80 (BP Location: Left arm, Patient Position: Lying) Pulse 70 Temp 36.3 ??C (97.4 ??F) (Temporal) Resp 20 Ht 185.4 cm (6' 1 ) Wt 92.5 kg (203 lb 14.8 oz) SpO2 97% BMI 26.90 kg/m?? [facility] ED Course as of Dec 18 2035 Time: 12/17 1219 Comment: ED RN informed me that the patient was not able to tolerate water p.o. after 1 mg IV glucagon. Will try an additional 1 mg IV glucagon and re-evaluate. By: Leatha Tucker PA Time: 12/17 1316 Comment: Patient failed second round of glucagon. Will consult with GI. Patient states he is feeling anxious. Will give 0.5 mg IV Ativan. Patient states he takes Xanax as needed for his anxiety at home. By: Leatha Tucker PA Time: 12/17 1322 Comment: Spoke with GI specialist, Dr. Brandon. Discussed the patient's presentation to the ED and the ED course thus far. He recommended another round of glucagon and giving the patient 7- up/sprite/Coke. I will call him back. By: Leatha Tucker PA Time: 12/17 1355 Comment: Patient able to tolerate p.o. Sprite after the additional 1 mg IV glucagon. Will consult with Dr. Brandon again. By: Leatha Tucker PA Time: 12/17 4821 Comment: Updated Dr. Brandon. Explained that the patient appears more comfortable and is able to tolerate p.o. fluids. He recommended soft diet for the patient and would like to see the patient in his office early next week. Recommended Coke or Pepsi for the patient if this happens again at home. Patient should watch for the ABC's and return to the ED with any new or worsening symptoms. Updated thepatient and he is agreeable with this plan. States he will also call his GI specialist in [place]. By: Leatha Tucker PA This examination was transcribed using the [email or web address] computerized voice recognition system without human mattress weaver. In an effort to expedite patient care, this report has not been adjusted for typographical, grammatical, and syntax by a trained medical affairs director. Clinical Impression: Food impaction of esophagus, initial encounter Leatha Tucker PA 12/17/202035 Cosigned by Shant Diaz MD at 12/19/2020 5:46 PM CDT * Cristal Ramirez RN - 12/17/2020 9:13 AM CDT PATIENT STATES CHOKED ON A PIECE OF CHICKEN LAST NIGHT. STATES NOW IS UNABLE TO SWALLOW EVEN WATER.C/O HEARTBURN. DENIES SOB. documented in this encounter Plan of Treatment Upcoming Encounters Date Type Department Care Team (Late st Contact Info) Description 05/22/2024 10:45 AM MEAL ATTENDANT Hospital Encounter [facility] Endoscopy [id number] [place] [address] Nikolay Boucher MD [address] [place] [address] 05/22/2024 10:45 AM MEAL ATTENDANT - 05/22/2024 11:15 AM MEAL ATTENDANT Surgery [facility]oscopy [address] [place] [address] Nikolay Boucher MD [address] [place] [address] EGD Scheduled Procedures Name Priority Associated Diagnoses Date/Ti tn ESOPHAGOGASTRODUODENOSCOPY Crohn's disease of both small and large intestine with intestinal obstruction (HCC) 05/22/2024 10:45 AM MEAL ATTENDANT documented as of this encounter Procedures Procedure Name Priority Date/Time Associated Diagnosis Comments ECG 12-LEAD STAT 12/17/2020 11:[address] SOFT TISSUE NECK W CONTRAST ED 12/17/2020 11:25 AM CDT EGFR STAT 12/17/2020 9:58 AM CDT DIFFERENTIAL AUTO STAT 12/17/2020 9:5 8 AM CDT CBC WITH AUTO DIFFERENTIAL STAT 12/17/2020 9:58 AM CDT COMPREHENSIVE METABOLIC PANEL STAT 12/17/2020 9:58 AM CDT documented in this encounter Results * ECG 12 lead (12/17/2020 11:58 AM CDT) Ventricular Rate EKG/Min 78 BPM [facility] Atrial Rate 78 BPM [facility] IL-Interval (MSEC) 144 ms [facility] QRS-Interval (MSEC) 88 ms [facility] QT-Interval (MSEC) 362 ms [facility] QTc 412 ms [facility] P Baxter 48 degrees [facility] R Baxter 13 degrees [facility] T Baxter 21 degrees [facility] Diagnosis Normal sinus rhythm Normal ECG No previous ECGs available [facility] 12/17/2020 11:5 8 AM CDT 12/17/2020 2:20 PM CDT Leatha ABAD ECG ORDERABLES Final Result [facility] * CT Neck Soft Tissue W Contrast (12/17/2020 11:25 AM CDT) Anatomical Region Laterality Modality Head and Neck N/A Computed Tomogra phy 12/17/2020 12:3 4 PM CDT Narrative 12/17/2020 12:44 PM CDT EXAM DESCRIPTION: ?? CT SOFT TISSUE NECK W CONTRAST REASON FOR STUDY: ?? Patient choked on a chicken last night. ??Unable to swallow. Duration: Since last night. TECHNIQUE: ??Post IV contrast scanning from skull base through lung apices. ?? Reconstructed MPR images reviewed. All images stored on PACS. Automated exposure control was used as a dose optimization technique for this examination. CONTRAST TYPE/DOSE: ??100 cc of Optiray 350 was injected via ??the right antecubital fossa IV site. COMPARISON: ?? No prior. FINDINGS: SOFT TISSUE: ??A BB marker was placed over the area where the patient feels abnormality. ??This is seen at about the level of the thyroid gland. ??There is no soft tissue abnormality seen about the trachea or esophagus at this level. ?? No soft tissue mass or inflammatory change. Soft tissues are otherwise unremarkable. ORAL CAVITY/FLOOR OF MOUTH, PHARYNX, LARYNX, HYPOPHARYNX: ?? There is no radiopaque foreign body identified. ??Is no inflammatory change about the soft tissues of the neck. ??Airway is patent. LYMPHADENOPATHY: ??No adenopathy. MAJOR SALIVARY GLANDS: ??No solid or cystic masses. ??No inflammatory changes. THYROID: ??Normal appearance of the thyroid gland. ??No suspicious nodule. VASCULATURE: ??No apparent critical stenosis or occlusion. INTRACRANIAL/SKULL BASE/INCLUDED ORBITS: ??Limited intracranial evaluation. No abnormal findings. PARANASAL SINUSES: ??Well-aerated. CERVICAL SPINE: ??No significant abnormalities. LUNG APICES: ??Clear. OTHER: ??On the most distal images obtained through the upper chest on this exam is mild fluid in the esophagus. ??This is nonspecific. ??Reflux possible. IMPRESSION: ?? 1. ??No radiopaque foreign body is seen about the neck. 2. ??No acute inflammatory change is seen about the neck. 3. ??On the most distal images obtained on this exam is fluid seen in the esophagus of the upper chest. ??This is a nonspecific finding. ??This can be seen in reflux. ??Consider imaging of the chest to ensure no prominent fluid-filled esophagus or more distal obstruction given the history. THIS IS AN ELECTRONICALLY VERIFIED FINAL REPORT 12/17/2020 12:44 PM - Electronically signed by Jesus Monahan M.D. MJ: HERACLIO D: ??12/17/2020 12:44 PM T: ??12/17/2020 12:44 PM Report ID: [id number] Reading Location: ??[id number] Procedure Note Jesus Monahan MD - 12/17/2020 EXAM DESCRIPTION: CT SOFT TISSUE NECK W CONTRAST REASON FOR STUDY: Patient choked on a chicken last night. Unable toswallow. Duration: Since last night. TECHNIQUE: Post IV contrast scanning from skull base through lung apices. Reconstructed MPR images reviewed. All images stored on PACS. Automated exposure control was used as a dose optimization technique for this examination. CONTRAST TYPE/DOSE: 100 cc of Optiray 350 was injected via the right antecubital fossa IV site. COMPARISON: No prior. FINDINGS: SOFT TISSUE: A BB marker was placed over the area where the patient feels abnormality. This is seen at about the level of the thyroid gland. Thereis no soft tissue abnormality seen about the trachea or esophagus at thislevel. No soft tissue mass or inflammatory change. Soft tissues are otherwise unremarkable. ORAL CAVITY/FLOOR OF MOUTH, PHARYNX, LARYNX, HYPOPHARYNX: There is no radiopaque foreign body identified. Is no inflammatory change about the soft tissues of the neck. Airway is patent. LYMPHADENOPATHY: No adenopathy. MAJOR SALIVARY GLANDS: No solid or cystic masses. No inflammatorychanges. THYROID: Normal appearance of the thyroid gland. No suspicious nodule. VASCULATURE: No apparent critical stenosis or occlusion. INTRACRANIAL/SKULL BASE/INCLUDED ORBITS: Limited intracranial evaluation.No abnormal findings. PARANASAL SINUSES: Well-aerated. CERVICAL SPINE: No significant abnormalities. LUNG APICES: Clear. OTHER: On the most distal images obtained through the upper chest on this exam is mild fluid in the esophagus. This is nonspecific. Refluxpossible. IMPRESSION: 1. No radiopaque foreign body is seen about the neck. 2. No acute inflammatory change is seen about the neck. 3. On the most distal images obtained on this exam is fluid seen in the esophagus of the upper chest. This is a nonspecific finding. This can be seen in reflux. Consider imaging of the chest to ensure no prominent fluid-filled esophagus or more distal obstruction given the history. THIS IS AN ELECTRONICALLY VERIFIED FINAL REPORT 12/17/2020 12:44 PM - Electronically signed by Jesus Monahan M.D. MJ: HERACLIO Report ID: [id number] Reading Location: [place] [address] us Shant Diaz MD IMG CT PROCEDURES Fin al Result * eGFR (12/17/2020 9:58 AM CDT) eGFR 56 mL/min/1.7 3 m2 [facility] Comment: Interpretive Data Reference Interval [...] Current interpretive data was last reviewed 2020 Testing performed by: [address] [address] Blood specimen (specimen) 12/17/2020 9:58 AM CDT 12/17/2020 10:03 AM CDT us Shant Diaz MD LAB BLOOD ORDERABLES Final Result Performing Organization Address City/State/[facility] Co de Phone Number [facility] [address] [facility] Department [place] [address] * Differential, auto (12/17/2020 9:58 AM CDT) Neutrophil abs 6.4 1.7 - 6.5 K/cumm [facility] Comment:Testing performed by : [address] [address] Imm gran abs 0.1 0.0 - 0.1 K/cumm [facility]ACE Comment:Testing performed by : [address] [address] Lymphocyte abs 1.5 0.8 - 3.3 K/cumm [facility] Comment:Testing performed by : [address] [address] Monocyte abs 0.8 0.2 - 0.8 K/cumm [facility] Comment:Testing performed by : [address], [place]., [address] Eosinophil abs 0.1 0.0 - 0.5 K/cumm [facility] Comment:Testing performed by : [address] [address] Basophil abs 0.0 0.0 - 0.1 K/cumm [facility] Comment:Testing performed by : [address] [address] Neutrophil pct 72.5 % [facility] Comment: Interpretive Data Percent cell count reference ranges are not reported, since discordance with absolute values may lead to misinterpretation of CBC data. Current Interpretive Data was last revised on 2017. Testing performed by: [address] [address] Imm gran pct 0.6 % [facility] Comment: Interpretive Data Percent cell count reference ranges are not reported, since discordance with absolute values may lead to misinterpretation of CBC data. Current Interpretive Data was last revised on 2017. Testing performed by: [address] [address] Lymphocyte pct 16.5 % [facility] Comment: Interpretive Data Percent cell count reference ranges are not reported, since discordance with absolute values may lead to misinterpretation of CBC data. Current Interpretive Data was last revised on 2017. Testing performed by: [address] [address] Monocyte pct 9.0 % [facility] Comment: Interpretive Data Percent cell count reference ranges are not reported, since discordance with absolute values may lead to misinterpretation of CBC data. Current Interpretive Data was last revised on 2017. Testing performed by: [address] [address] Eosinophil pct 0.9 % [facility] Comment: Interpretive Data Percent cell count reference ranges are not reported, since discordance with absolute values may lead to misinterpretation of CBC data. Current Interpretive Data was last revised on 2017. Testing performed by: [address] [address] Basophil pct 0.5 % [facility]ACE Comment: Interpretive Data Percent cell count reference ranges are not reported, since discordance with absolute values may lead to misinterpretation of CBC data. Current Interpretive Data was last revised on 2017. Testing performed by: [address] [address] Blood specimen (specimen) 12/17/2020 9:58 AM CDT 12/17/2020 10:03 AM CDT Shant Diaz MD LAB BLOOD ORDERABLES Final Result [facility] Department [place] [address] * CBC with auto differential (12/17/2020 9:58 AM CDT) WBC 8.8 3.8 - 9.9 K/cumm [facility] Comment:Testing performed by : [address] [address] Hgb 15.1 13.0 - 17.5 g/dL [facility]ACE Comment:Testing performed by : [address] [address] Hct 46.5 38.9 - 50.3 % [facility] Comment:Testing performed by : [address] [address] Plt 273 150 - 400 K/cumm [facility]ACE Comment:Testing performed by : [address] [address] MPV 9.4 9.1 - 12.3 fL [facility]ACE Comment:Testing performed by : [address] [address] RBC 5.15 4.30 - 5.80 M/cumm [facility] GRACE Comment:Testing performed by : [address] [address] MCV 90.3 81.3 - 96.4 fL [facility] GRACE Comment:Testing performed by : [address] [address] MCH 29.3 27.1 - 33.3 pg [facility] GRACE Comment:Testing performed by : [address] [address] MCHC 32.5 32.3 - 35.7 g/dL [facility]ACE Comment:Testing performed by : [address] [address] RDW CV 14.2 11.1 - 14.9 % [facility] Comment:Testing performed by : [address] [address] RDW SD 46.4 35.7 - 48.1 fL [facility]ACE Comment:Testing performed by : [address] [address] NRBC abs 0.00 0.00 - 0.01 K/cumm [facility] GRACE Comment:Testing performed by : [address] [address] Blood specimen (specimen) 12/17/2020 9:58 AM CDT 12/17/2020 10:03 AM CDT Shant Diaz MD LAB BLOOD ORDERABLES Final Result [facility] [address] [facility] Department [place] [address] * (ABNORMAL) Comprehensive metabolic panel (12/17/2020 9:58 AM CDT) Sodium 138 135 - 145 mmol/L [facility] GRACE Comment:Testing performed by : [address] [address] Potassium, pl 5.2(H) 3.3 - 4.9 mmol/L [facility]ACE Comment:Testing performed by : [address], [address] Chloride 102 97 - 110 mmol/L [facility] GRACE Comment:Testing performed by : [address] [place]., [address] CO2 28 22 - 32 mmol/L [facility] Comment:Testing performed by : [address] [address] Anion gap 8 2 - 15 mmol/L [facility]DA Comment:Testing performed by : [address] [address] BUN 20 8 - 25 mg/dL [facility]DA Comment:Testing performed by : [address] [address] Creatinine 1.40(H) 0.80 - 1.30 mg/dL [facility] Comment:Testing performed by : [address] [address] Glucose 102 70 - 199 mg/dL [facility]DA Comment: Interpretive [...] was last revised 2017. Testing performed by: [address] [address] Calcium 9.4 8.5 - 10.3 mg/dL [facility] Comment:Testing performed by : [address] [address] Bilirubin, total 1.0 0.1 - 1.2 mg/dL [facility] Comment:Testing performed by : [address] [address] Protein, pl 7.7 6.5 - 8.5 g/dL [facility] Comment:Testing performed by : [address] [address] Albumin 4.8 3.5 - 5.0 g/dL [facility] Comment:Testing performed by : [address] [address] Alk phos 111 40 - 130 Units/L [facility] GRACE Comment:Testing performed by : [facility], [address] [place] [address]., [address] ALT 22 7 - 55 Units/L [facility] GRACE Comment:Testing performed by : [facility], [address] [place] [address]., [address] AST 34 10 - 50 Units/L [facility] GRACE Comment:Testing performed by : [address] [address] Blood specimen (specimen) 12/17/2020 9:58 AM CDT 12/17/2020 10:03 AM CDT Shant Diaz MD LAB BLOOD ORDERABLES Final Result [facility] [address] [facility] [place] [address] documented in this encounter Visit Diagnoses Diagnosis Food impaction of esophagus, initial encounter- Primary Crohn's disease of both small and large intestine with intestinal obstruction (HCC) documented in this encounter Administered Medications Inactive Administered Medications - up to 3 most recent administrations Medication Order MAR Action Action Date Dose Rate Site glucagon injection 1 mg 1 mg, intravenous, Administer over 1 Minutes, Once, On 12/17/20 at 1144, For 1 dose, Reconstitute 1 mg vial with 1 mL SWFI. Use immediately following reconstitution. Given 12/17/2020 11:50 AM CDT 1 mg glucagon injection 1 mg 1 mg, intravenous, Administer over 1 Minutes, Once, On 12/17/20 at 1219, For 1 dose, Reconstitute 1 mg vial with 1 mL SWFI. Use immediately following reconstitution. Given 12/17/2020 12:43 PM CDT 1 mg glucagon injection 1 mg 1 mg, intravenous, Administer over 1 Minutes, Once, On 12/17/20 at 1325, For 1 dose, Reconstitute 1 mg vial with 1 mL SWFI. Use immediately following reconstitution. Given 12/17/2020 1:35 PM CDT 1 mg ioversoL (OPTIRAY 350) syringe syringe 100 mL 100 mL, intravenous, Once in imaging, contrast, Starting on 12/17/20 at 1115, For 1 dose Contrast Given 12/17/2020 11:15 AM CDT 100 mL LORazepam (ATIVAN) injection 0.5 mg 0.5 mg, intravenous, Once, On 12/17/20 at 1316, For 1 dose, For IV administration, dilute with equal volume of 0.9% sodium chloride. Do not exceed a rate of 2 mg/minute Given 12/17/2020 1:31 PM CDT 0.5 mg sodium chloride 0.9% flush 75 mL 75 mL, intravenous, Once in imaging, line care, Starting on 12/17/20 at 1115, For 1 dose Given 12/17/2020 11:15 AM CDT 75 mL documented in this encounter Active and Recently Administered Medications Times are shown in CDT. Scheduled Medication Order 12/15/2020 12/16/2020 12/17/2020 glucagon injection 1 mg (COMPLETED) 1 mg, intravenous, Administer over 1 Minutes, Once, On 12/17/20 at 1144, For 1 dose, Reconstitute 1 mg vial with 1 mL SWFI. Use immediately following reconstitution. 1150 (Given - Provid er: Oseas Chavira RN) glucagon injection 1 mg (COMPLETED) 1 mg, intravenous, Administer over 1 Minutes, Once, On 12/17/20 at 1219, For 1 dose, Reconstitute 1 mg vial with 1 mL SWFI. Use immediately following reconstitution. 1243 (Given - Provid er: Oseas Chavira RN) glucagon injection 1 mg (COMPLETED) 1 mg, intravenous, Administer over 1 Minutes, Once, On 12/17/20 at 1325, For 1 dose, Reconstitute 1 mg vial with 1 mL SWFI. Use immediately following reconstitution. 1335 (Given - Provid er: Oseas Chavira RN) LORazepam (ATIVAN) injection 0.5 mg (COMPLETED) 0.5 mg, intravenous, Once, On 12/17/20 at 1316, For 1 dose, For IV administration, dilute with equal volume of 0.9% sodium chloride. Do not exceed a rate of 2 mg/minute 1331 (Given - Provid er: Oseas Chavira RN) PRN Medication Order 12/15/2020 12/16/2020 12/17/2020 ioversoL (OPTIRAY 350) syringe syringe 100 mL (COMPLETED) 100 mL, intravenous, Once in imaging, contrast, Starting on 12/17/20 at 1115, For 1 dose 1115 (Contrast Given - Provider: Jose Carlos Rodas RT) sodium chloride 0.9% flush 75 mL (COMPLETED) 75 mL, intravenous, Once in imaging, line care, Starting on 12/17/20 at 1115, For 1 dose 1115 (Given - Provid er: Jose Carlos Rodas RT) documented in this encounter Orders IV Count Last Ordered Date First Orde red Date INSERT PERIPHERAL IV 12/17/2020 SALINE LOCK IV 12/17/2020 documented in this encounter Care Teams Trade Mark Attorney Relationship Specialty Start Date End Date Tip Armenta MD [address] [address] PCP - General Family Medicine 03/18/19 Eleanor Ramon MD [address] [place] [address] Medical Oncologist/Confectionery Cooker Hematology 07/12/20 documented as of this encounter
--- OUTSIDE RECORDS SUMMARY | 2024-05-18 22:16 | XMS_ITS | Encounter Summary ---
Author Organization [facility] Address [address] [place] [address] Phone Care Team Providers Care Tub Wash Operator Name Role Phone Tip Armenta MD Primary Care Provider [phone] Eleanor Ramon MD Unavailable [phone] Encounter Details Date Type Department Care Team (Late st Contact Info) Description 07/12/2020 Orders Only [facility] Hematology [address] [facility] Advanced Medicine 7th [place] [address] [place] [address] Eleanor Ramon MD [address] [place] [address] Social History Tobacco Use Types Packs/Day Years Used Date Smoking Tobacco: Never Smokeless Tobacco: Never Sex and Gender Information Value Date Recorded Sex Assigned at Not on file Legal Sex Male 1:20 AM SUPERINTENDENT DIVISION Gender Identity Not on file Sexual Orientation Not on file documented as of this encounter Plan of Treatment Upcoming Encounters Date Type Department Care Team (Late st Contact Info) Description 05/22/2024 10:45 AM SUPERINTENDENT DIVISION Hospital Encounter [facility] Endoscopy [address] [place] [address] Nikolay Boucher MD [address] [place], [place] [id number] 05/22/2024 10:45 AM SUPERINTENDENT DIVISION - 05/22/2024 11:15 AM SUPERINTENDENT DIVISION Surgery [facility] Endoscopy [address] [address] Nikolay Boucher MD [address] [place] [address] EGD Scheduled Procedures Name Priority Associated Diagnoses Date/Ti de ESOPHAGOGASTRODUODENOSCOPY Crohn's disease of both small and large intestine with intestinal obstruction (HCC) 05/22/2024 10:45 AM SUPERINTENDENT DIVISION documented as of this encounter Visit Diagnoses Not on filedocumented in this encounter Care Teams Tub Wash Operator Relationship Specialty Start Date End Date Tip Armenta MD [address] [address] PCP - General Family Medicine 03/18/19 Eleanor Ramon MD [address] [place], [place] [id number] Medical Oncologist/Physician Anesthesiologist Hematology 07/12/20 documented as of this encounter
--- OUTSIDE RECORDS SUMMARY | 2024-05-18 22:16 | XMS_ITS | Encounter Summary ---
Author Organization [facility] Address [address] [place] [address] Phone Care Team Providers Care Nut Sorter Name Role Phone Tip Armenta MD Primary Care Provider [phone] Eleanor Ramon MD Unavailable [phone] Encounter Details Date Type Department Care Team (Late st Contact Info) Description 07/15/2020 8:00 AM CIVIL DIVISION DEPUTY SHERIFF Telemedicine [facility] Gastroenterology [address] [facility] [place] Advanced Medicine 8th [place] [address] [place] [address] Claudia Mcclendon NP [address] [place] [address] Crohn's disease of both small and large intestine with intestinal obstruction (CMS/HCC) (Primary Dx); Vitamin D deficiency; Iron deficiency anemia due to chronic blood loss; Chronic diarrhea; High risk medications (not anticoagulants) long-term use Social History Tobacco Use Types Packs/Day Years Used Date Smoking Tobacco: Never Smokeless Tobacco: Never Sex and Gender Information Value Date Recorded Sex Assigned at Not on file Legal Sex Male 1:20 AM CIVIL DIVISION DEPUTY SHERIFF Gender Identity Not on file Sexual Orientation Not on file documented as of this encounter Progress Notes * Claudia Mcclendon NP - 07/15/2020 8:00 AM CST Images from the original note were not included. [facility] TELEHEALTH CLINIC VISIT This was a telemedicine visit with Mello Herbert alone which took place via Telephone. During the visit, I was located in the office and the patient was located at work in the state of [place]. The patient visit started at 800 and ended at 825. My total encounter time on 07/15/2020 was 26 minutes which was spent in the activities documented in the note. This includes time spent prior to the visit and after the visit in direct care of the patient. This time does not include time spent in any separately reportable services.. The patient: has been informed that the visit may not be secure and acknowledged the information. The option of participating in a telephone or video visit during the [facility] emergencywas explained to them. After being given an opportunity to ask questions about and discuss this type of visit, they verbally consented to proceeding with the telephone/video visit and understand thatthis service replaces an office visit and they may be billed and/or responsible for any applicable copayments. Claudia Mcclendon NP REASON FOR VISIT: Follow-up for ileocolonic Crohn's disease with persistent low vitamin-D CURRENT MEDICATIONS: Testosterone, Xanax, B12, Humira 40 mg every 14 days, Ambien, Lomotil, Imodium, vitamin-D 42909 units capsule daily PROBLEM LIST: 1. Ileocolonic Crohn's disease diagnosed in 1989 with small bowel resection in 1989 and recurrent anastomotic strictures in 2005 and 2009 leading to redo ileo colonic resections. ??The patient's anastomosis was most recently described as being in the proximal transverse colon. ??Previously treated with 6 MP (without response),??methotrexate (without response),??Remicade??(with initial response but discontinued in the context of severe pneumonia),??and Humira. ??Noted to be in continued mucosal remission on 03/18/2017 2. Chronically low vitamin D 3. Chronic joint pains characterized by arthralgias, general malaise and fatigue which may respond to substantial sun exposure 4. Repair of incisional hernia in April 2012 5. History of iron deficiency anemia 6. Low testosterone HISTORY OF PRESENT ILLNESS: Mello Herbert is a 55 y.o. male with a longstanding history of stricturing ileocolonic Crohn's disease and vitamin-D deficiency who presents today for follow-up. The patient was last seen in clinic on 03/18/2019 at which time he was complaining of a globus sensation and a feeling like things needed to be regurgitated. He also complained of esophagitis symptoms despite being on lansoprazole. He tried famotidine up to 3 times per week to get response. He had previously had an EGD which did not been suggestive of Givens's or stricture. His vitamin-D levels at that time were persistently low despite repletion by his PCP. The patient was advised to continueLomotil and Imodium and plan for a repeat colonoscopy. He was asked to take 2000 units daily and have his levels recheck in 2 months. He was also encouraged to follow-up in 1 year. The patient contacted our office recently complaining that [place] [address] unitsdaily and was asked to follow-up. The patient presents today reporting that his GI symptoms have remained very stable since last seenand he has not had any issues with a flare recently. He thinks that he has only ever had some mild flare symptoms once or twice in last 7 years since starting Humira. He also does not report any increase in symptoms as he approaches his next injection. He states that he has chronic achiness in his joints which she feels is much better when he is in the sun quite a bit. He does not report any rashes or evidence of psoriasis. He also complains of feeling fatigued recently and asked his chemical equipment controller have hit his levels reach checked. He was found to be iron deficient and will be receiving an infusion soon. He states that he has been trying to take vitamin-D 10191 units daily and believes he has been on this for about 2-3 months. He also takes omeprazole 20 mg once daily. He has been trying to eat his vitamin-D with breakfast. He wonders if his vitamin-D deficiency is the cause of his jointpain. He states that he always has a fairly high stool frequency and generally has to use the restroom within 20 minutes of eating even if he uses Imodium or Lomotil. He states that if he takes either Lomotil or Imodium extensively for a period of several weeks they will cause him to start sweatingso he alternates between the 2 of them. He is overall satisfied with his current symptoms on Humira. He is aware that he needs a repeat colonoscopy but states that he dislikes the prep quite a bit. REVIEW OF SYSTEMS: As per HPI, all other systems negative PHYSICAL EXAM: Exam by interview only via telephone visit today. There were no vital signs taken for this visit OBJECTIVE DATA: Recents labs, imaging studies, and endoscopic procedures were reviewed for trends, and aberrations on the day of the patient's visit. ASSESSMENT AND PLAN: Mello Herbert is a 55 y.o. male with past medical history of Crohn's disease and vitamin-D deficiency who presents today for follow-up 1. Crohn's disease. Overall the patient continues to do well on Humira. He has done his lab work recently and we ultimately would like to have lab work every 3 months per our protocol. It has been over 3 years since his last colonoscopy and since he has had substantial trouble with stricturing, it is important that he have a colonoscopy to verify that activities not return to his anastomosis. We w katelyn recommend that he have a repeat colonoscopy this year. Potentially we could try offering a lower volume prep to improve its tolerability. 7. Vitamin-D deficiency. The patient has had ongoing issues with low vitamin-D. This may be relatedto his previous surgeries however most guidelines would suggest that with high enough doses, an appropriate level should be achieved. In a clinical guideline published in 2011, it was suggested that those with malabsorption issues can be treated with 03320 units daily for 8 weeks half and then retested in an effort to achieve a vitamin-D level above 30. Once that has been achieved, they suggest dropping it to 3-6000 units daily. As he has quite rapid transit, we would recommend that he considerthe liquid or chewable form. Since he takes omeprazole and this may interfere in vitamin-D absorption, we would recommend that he try taking his vitamin-D with dinner instead of breakfast. We will plan to recheck his drug level after these modifications in 2 months. We discussed the possibility that potentially he could have some pancreatic insufficiency that would impact his absorption of fat-soluble molecules however he has not had any trouble with greasy stools or deficiencies and other fat-soluble molecules. 2. Chronic diarrhea. We would like the patient to continue his use of Imodium and Lomotil. We couldconsider cholestyramine but worry that that would worsen his vitamin-D deficiency. 3. Iron deficiency anemia. Though the patient feels well, we would recommend that he have a repeat colonoscopy to verify that disease activity is not the cause of his drop in iron stores. He should continue to follow closely with his chemical equipment controller for management of his deficiency 4. Healthcare maintenance. The patient is encouraged to stay up-to-date with his vaccines and Healthcare maintenance with his various providers The patient was given ample opportunity to ask questions and have them answered. We would like him to return in 12 months. This note was created in part with the assistance of [employer] voice recognition software. Functional Analyst variances may occur. L DIVISION DEPUTY SHERIFF documented in this encounter Plan of Treatment Upcoming Encounters Date Type Department Care Team (Late st Contact Info) Description 05/22/2024 10:45 AM CIVIL DIVISION DEPUTY SHERIFF Hospital Encounter [facility] Endoscopy [address] [place] [address] Nikolay Boucher MD [address] [place] [address] 05/22/2024 10:45 AM CIVIL DIVISION DEPUTY SHERIFF - 05/22/2024 11:15 AM CIVIL DIVISION DEPUTY SHERIFF Surgery [facility] Endoscopy [address] [place] [address] Nikolay Boucher MD [address] [place] [address] EGD Scheduled Orders Name Type Priority Associated Diagnoses Orde r Schedule Vitamin D 25 hydroxy Lab Routine Vitamin D deficiency Expected: 09/12/2020, Expires: 07/15/2021 Scheduled Procedures Name Priority Associated Diagnoses Date/Ti me ESOPHAGOGASTRODUODENOSCOPY Crohn's disease of both small and large intestine with intestinal obstruction (HCC) 05/22/2024 10:45 AM CIVIL DIVISION DEPUTY SHERIFF documented as of this encounter Visit Diagnoses Diagnosis Crohn's disease of both small and large intestine with intestinal obstruction (HCC)- Primary Vitamin D deficiency Iron deficiency anemia due to chronic blood loss Iron deficiency anemia secondary to blood loss (chronic) Chronic diarrhea Diarrhea High risk medications (not anticoagulants) long-term use Encounter for long-term (current) use of other medications Crohn's disease of both small and large intestine with intestinal obstruction (HCC) documented in this encounter Care Teams Nut Sorter Relationship Specialty Start Date End Date Tip Armenta MD [address] [address] PCP - General Family Medicine 03/18/19 Eleanor Ramon MD [address] [facility] [address] [place] [address] Medical Oncologist/Joggle Press Operator Hematology 07/12/20 documented as of this encounter
--- OUTSIDE RECORDS SUMMARY | 2024-05-18 22:16 | XMS_ITS | Encounter Summary ---
Author Organization [facility] Address [address] [place] [address] Phone Care Team Providers Care Camera Prototyping Engineer Name Role Phone Tip Armenta MD Primary Care Provider [phone] Encounter Details Date Type Department Care Team (Late st Contact Info) Description 08/17/2019 Telephone [facility] Hematology [address] [facility] Advanced [facility] 7th [place] [address] [place] [address] Kely Puga Social History Tobacco Use Types Packs/Day Years Used Date Smoking Tobacco: Never Smokeless Tobacco: Never Sex and Gender Information Value Date Recorded Sex Assigned at Not on file Legal Sex Male 1:20 AM TUBE AND MANIFOLD BUILDER Gender Identity Not on file Sexual Orientation Not on file documented as of this encounter Miscellaneous Notes * Telephone Encounter - Kely Mirza - 08/17/2019 2:13 PM CDT Left message on voice mail w screening questions, asked patient to return call to confirm documented in this encounter Plan of Treatment Upcoming Encounters Date Type Department Care Team (Late st Contact Info) Description 05/22/2024 10:45 AM TUBE AND MANIFOLD BUILDER Hospital Encounter [facility] Endoscopy [address] [place] [address] Nikolay Boucher MD [address] [place] [address] 05/22/2024 10:45 AM TUBE AND MANIFOLD BUILDER - 05/22/2024 11:15 AM TUBE AND MANIFOLD BUILDER Surgery [facility] Endoscopy [address] [place] [address] Nikolay Boucher MD [address] [place] [address] EGD Scheduled Procedures Name Priority Associated Diagnoses Date/Ti me ESOPHAGOGASTRODUODENOSCOPY Crohn's disease of both small and large intestine with intestinal obstruction (HCC) 05/22/2024 10:45 AM TUBE AND MANIFOLD BUILDER documented as of this encounter Visit Diagnoses Not on filedocumented in this encounter Care Teams Camera Prototyping Engineer Relationship Specialty Start Date End Date Tip Armenta MD [address] [address] PCP - General Family Medicine 03/18/19 documented as of this encounter
--- OUTSIDE RECORDS SUMMARY | 2024-05-18 22:16 | XMS_ITS | Encounter Summary ---
Author Organization [facility] Address [address] [place] [address] Phone Care Team Providers Care Shovel Logger Name Role Phone Tip Armenta MD Primary Care Provider [phone] Encounter Details Date Type Department Care Team (Late st Contact Info) Description 03/18/2019 7:45 AM CDT Office Visit [facility] Gastroenterology [address] [facility] Medical Office Building [address] [place] [address] Roxanna Valenzuela MD [address] [place], [place] [id number] Crohn's disease of small and large intestines with complication (CMS/HCC) (Primary Dx) Social History Tobacco Use Types Packs/Day Years Used Date Smoking Tobacco: Never Smokeless Tobacco: Never Sex and Gender Information Value Date Recorded Sex Assigned at Not on file Legal 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 Gender Identity Not on file Sexual Orientation Not on file documented as of this encounter Last Filed Vital Signs Vital Sign Reading Time Taken Comments Blood Pressure 148/92 03/18/2019 8:27 AM CDT Pulse 93 03/18/2019 8:27 AM CDT Temperature 37.2 ??C (98.9 ??F) 03/18/2019 8:27 AM CD T Respiratory Rate - - Oxygen Saturation - - Inhaled Oxygen Concentration - - Weight 96.6 kg (213 lb) 03/18/2019 8:27 AM CDT Height 185.4 cm (6' 1 ) 03/18/2019 8:27 AM CDT Body Mass Index 28.1 03/18/2019 8:27 AM CDT documented in this encounter Patient Instructions * Patient Instructions* Leandro Benítez LPN - 03/18/2019 7:45 AM CDT Colonoscopy due- Sofia will call to schedule. She can be contacted at [phone]. Take 2000 units of Vit D daily- over the counter Recheck Vitamin D in 2 months- script given in clinic today If you need to take your H2 jennifer more than 2 x per week you will need to increase your protonpump inhibitor as discussed Follow up in 1 year documented in this encounter Progress Notes * Jairo Billy MD - 03/18/2019 7:45 AM CDT Reason for visit: Follow up for stricturing ileocolonic Crohn's disease Problem List: 1. Ileocolonic Crohn's disease diagnosed in 1989 with small bowel resection in 1989 and recurrent anastomotic strictures in 2005 and 2009 leading to redo ileo colonic resections. The patient's anastomosis was most recently described as being in the proximal transverse colon. Previously treated with6 MP (without response), methotrexate (without response), Remicade (with initial response but discontinued in the context of severe pneumonia), and Humira. Noted to be in continued mucosal remission on 03/18/2017 2. Chronically low vitamin D 3. Chronic joint pains characterized by arthralgias, general malaise and fatigue which may respond to substantial sun exposure 4. Repair of incisional hernia in April 2012 5. History of iron deficiency anemia 6. Low testosterone HPI: Mello Herbert is a 53 y.o. male with PMH of stricturing CD who presents today for routine follow up. He was last seen in 01/2018 for routine follow up at which time he was noted to be in remission and was doing well on Humira. His colonoscopy which was performed on 03/18/2017 and showed a healthy andpatent anastomosis in the proximal transverse colon, healthy neoterminal ileum and colon. He is duefor a repeat one now. Today he reports some globus sensation with esophagitis. He has a sensation of food getting stuck in his throat and will have to forcefully regurgitate it. He does have esophagitis symptoms on top ofhis lansoprazole and is having to take famotidine up to 3 times per week to get full control of symptoms. He has had an EGD in the past when these symptoms have been present and he has no evidence of stricture or Givens's esophagus. His Vitamin D levels have been persistently low despite repletion by his PCP. Review of Systems: On complete review of systems, all other systems are negative. Allergies Allergen Reactions ??? Latex Rash Current Outpatient Medications Medication Sig Dispense Refill ??? acetaminophen-codeine (TYLENOL with CODEINE #3) 300-30 mg per tablet 5 ??? adalimumab (HUMIRA PEN) 40 mg/0.4 mL pen injector kit Inject 0.4 mL (40 mg total) under the skin every 14 (fourteen) days SAFETY LABS REQUIRED EVERY 3 MONTHS FOR REFILLS DUE 04/2019 2 each 5 ??? ALPRAZolam (XANAX) 1 mg tablet TK 1/2 TO 1 T PO BID PRF ANXIETY 5 ??? BD SAFETYGLIDE SYRINGE 3 mL 23 x 1 syringe U UTD 5 ??? CIALIS 20 mg tablet TK 1 T PO QD PRN 5 ??? cyanocobalamin (Vitamin B-12) 1,000 mcg/mL injection INJECT 1 ML Q 2 WEEKS UTD 4 ??? diphenoxylate-atropine (LOMOTIL) 2.5-0.025 mg per tablet TK 1 TO 2 TS PO BID PRN 5 ??? DULoxetine DR (CYMBALTA) 30 mg capsule TAKE ONE C BY MOUTH DAILY 2 ??? ergocalciferol (VITAMIN D) 50,000 unit capsule Take 1 cap PO one day a month 12 capsule 0 ??? folic acid (FOLVITE) 1 mg tablet TK 1 T PO D UTD 3 ??? hydroCHLOROthiazide (HYDRODIURIL) 25 mg tablet daily. ??? hyoscyamine (LEVSIN) 0.125 mg tablet Take 1 tab PO every 6 hours as needed for spasms 120 tablet 5 ??? lansoprazole (PREVACID) 15 mg capsule Take 15 mg by mouth ??? losartan (COZAAR) 25 mg tablet TK 1 T PO ONCE D 6 ??? magnesium oxide,aspartate,citr (TRIPLE MAGNESIUM COMPLEX) 400 mg capsule Take 1 capsule by mouth ??? montelukast (SINGULAIR) 10 mg tablet TK 1 T PO QD 1 ??? nystatin 100,000 unit/mL suspension Take 5 ml PO 2 times daily,swish and swallow for 7 days 70 mL 1 ??? ondansetron (ZOFRAN) 8 mg tablet TK 1 T PO TID PRN 5 ??? testosterone cypionate (DEPO-TESTOTERONE) 200 mg/mL injection INJ 1 ML IM Q WK 5 ??? venlafaxine XR (EFFEXOR-XR) 37.5 mg 24 hr capsule TK 1 C PO QAM 2 ??? vit A-vit D-wpst-xijhfcmh (ZINC WITH VITAMINS A AND C) 15 mg lozenge Take 1 tablet by mouth ??? zolpidem (AMBIEN) 10 mg tablet TK 1 T PO Q HS PRN 5 No current facility-administered medications for this visit. Physical Exam: BP 148/92 (BP Location: Left arm, Patient Position: Sitting) Pulse 93 Temp 37.2 ??C (98.9 ??F) (Oral) Ht 185.4 cm (6' 1 ) Wt 96.6 kg (213 lb) BMI 28.10 kg/m?? General: well nourished, well developed, in no acute cardiopulmonary distress HEENT: Sclera anicterus. Conjunctiva pink. Orapharynx clear and moist. Pulmonary: Clear to auscultation bilaterally. Cardiovascular: Regular rate and rhythm. Normal S1 and S2. No murmur. Abdomen: Normal bowel sounds. Soft. No tenderness or rebound pain. No distention. Skin: No rash or ulcerations Neurological: Alert and oriented with no focal deficits Labs: Lab on 02/17/2019 Component Date Value Ref Range Status ??? Cyanocobalamin (Vit B12) 02/17/2019 561 230 - 1,250 pg/mL Final ??? Retics, absolute 02/17/2019 0.070 0.020 - 0.087 M/cumm Final ??? Retics 02/17/2019 1.35 0.50 - 1.80 % Final ??? Iron 02/17/2019 94 50 - 150 mcg/dL Final ??? TIBC 02/17/2019 274 250 - 400 mcg/dL Final ??? Transferrin saturation 02/17/2019 34 20 - 50 % Final ??? Ferritin 02/17/2019 225 30 - 400 ng/mL Final ??? WBC 02/17/2019 8.9 3.8 - 9.8 K/cumm Final ??? Hgb 02/17/2019 15.5 13.8 - 17.2 g/dL Final ??? Hct 02/17/2019 44.6 40.7 - 50.3 % Final ??? Plt 02/17/2019 247 140 - 440 K/cumm Final ??? MPV 02/17/2019 7.8 6.8 - 10.4 fL Final ??? RBC 02/17/2019 5.17 4.50 - 5.70 M/cumm Final ??? MCV 02/17/2019 86.4 80.0 - 97.6 fL Final ??? MCH 02/17/2019 29.9 26.7 - 33.7 pg Final ??? MCHC 02/17/2019 34.6 32.7 - 35.5 g/dL Final ??? RDW CV 02/17/2019 14.7* 11.8 - 14.6 % Final ??? NRBC abs 02/17/2019 0.00 0.00 - 0.01 K/cumm Final ??? Bilirubin, total 02/17/2019 0.7 0.1 - 1.2 mg/dL Final ??? Bilirubin, direct 02/17/2019 0.2 0.1 - 0.3 mg/dL Final ??? Protein, pl 02/17/2019 7.7 6.5 - 8.5 g/dL Final ??? Albumin 02/17/2019 4.4 3.5 - 5.0 g/dL Final ??? Alk phos 02/17/2019 90 40 - 130 Units/L Final ??? ALT 02/17/2019 42 7 - 55 Units/L Final ??? AST 02/17/2019 34 10 - 50 Units/L Final ??? Neutrophil abs 02/17/2019 6.4 1.8 - 6.6 K/cumm Final ??? Lymphocyte abs 02/17/2019 1.7 1.2 - 3.3 K/cumm Final ??? Monocyte abs 02/17/2019 0.5 0.2 - 1.2 K/cumm Final ??? Eosinophil abs 02/17/2019 0.2 0.0 - 0.5 K/cumm Final ??? Basophil abs 02/17/2019 0.1 0.0 - 0.2 K/cumm Final ??? Neutrophil pct 02/17/2019 72.2 % Final ??? Lymphocyte pct 02/17/2019 18.9 % Final ??? Monocyte pct 02/17/2019 5.8 % Final ??? Eosinophil pct 02/17/2019 2.3 % Final ??? Basophil pct 02/17/2019 0.8 % Final Imaging Review No pertinent imaging to review Assessment/Plan: Mello is a 52-year-old male with past medical history of stricturing Crohn's disease who presents today for routine follow-up. ?? 1. Crohn's disease. He is in clinical remission at this time and his diarrheal symptoms are controlled with imodium and lamotil. He will need a repeat C-scope, which we will schedule for him in the coming weeks. He is to continue with his Humira injections every 2 weeks. 2. Colon cancer risk. We will repeat a C-scope as described above. 3. Vitamin-D deficiency. We will advise him to take 2000 international units of vitamin D daily andwe will recheck a vitamin D level in 2 months. At that time, we can increase his repletion to 50,000 international units every week if needed. ?? Patient was given ample opportunity to ask questions and have them answered. We would like him to return in [address] Valenzuela pending results of his up- coming colonoscopy. Rupesh Billy MD PGY-3 Resident Cosigned by Roxanna Valenzuela MD at 03/18/2019 9:08 AM CDT Associated attestation - Roxanna Valenzuela MD - 03/18/2019 9:08 AM CDT I have seen and examined the patient. I agree with the findings and plan of care as documented in the resident/fellow's note. documented in this encounter Plan of Treatment Upcoming Encounters Date Type Department Care Team (Late st Contact Info) Description 05/22/2024 10:45 AM TOOL DESIGN DRAFTER Hospital Encounter [facility] Endoscopy [address] [place] [address] Nikolay Boucher MD [address] [place] [address] 05/22/2024 10:45 AM TOOL DESIGN DRAFTER - 05/22/2024 11:15 AM TOOL DESIGN DRAFTER Surgery [facility] Endoscopy [address] [place] [address] Nikolay Boucher MD [address] [place] [address] EGD Scheduled Procedures Name Priority Associated Diagnoses Date/Ti pr ESOPHAGOGASTRODUODENOSCOPY Crohn's disease of both small and large intestine with intestinal obstruction (HCC) 05/22/2024 10:45 AM TOOL DESIGN DRAFTER documented as of this encounter Visit Diagnoses Diagnosis Crohn's disease of small and large intestines with complication (HCC)- Primary Crohn's disease of both small and large intestine with intestinal obstruction (HCC) documented in this encounter Care Teams Shovel Logger Relationship Specialty Start Date End Date Tip Armenta MD [address] [address] PCP - General Family Medicine 03/18/19 documented as of this encounter
--- OUTSIDE RECORDS SUMMARY | 2024-05-18 22:16 | XMS_ITS | Encounter Summary ---
Author Organization [facility] Address [address] [place] [address] Phone Care Team Providers Care Residential Support Worker Name Role Phone Tip Armenta MD Primary Care Provider [phone] Eleanor Ramon MD Unavailable [phone] Encounter Details Date Type Department Care Team (Late st Contact Info) Description 01/11/2021 Telephone 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 Herbert's appt on 02/09. We will try to move him up if there's a cancellation but nothing sooner at this time. * Telephone Encounter - Eboni Liao CNA - 01/20/2021 8:29 AM CDT Pt's wide called saying pt. Is in so much pain that the Tylenol with Codeine and IBU-Profen is not even helping with pt's pain and today he was barely able to get around this morning without soaking in the hot tub first. Anywhere sooner to add to? * Telephone Encounter - Shayy Poole - 01/17/2021 1:39 PM CDT 01/11/21 MR lumbar and cervical uploaded to [facility] as reference. * Telephone Encounter - Kyler Osman - 01/16/2021 9:07 AM CDT Pt called, reg/intake complete. All records under media, faxing request to [place] to mail cd at [phone]. Scheduled w CM on 02/09 at 11. Apt reminder mailed, pt aware to arrive early. * Telephone Encounter - Kyler Osman - 01/16/2021 8:51 AM CDT Department of Neurological Surgery at [facility] Spine Intake 01/16/21 Mello Herbert 1965 [id number] [phone] Tip Armenta MD Referring physician PCP Referred to: First Available: CM Second Opinion: No Diagnosis: Radiculopathy Location (Spinal Area): Cervical Incontinence: No Weakness: Yes Both arms Numbness: Yes Electric shocks throughout arms Duration of symptoms: 2 months HT: 6'1 WT: 208 BMI: 27 Prior spine surgery: NO Physical therapy NO Injections NO Are you a current smoker: No Insurance: [employer] Litigation: NO Imaging Done: Yes MRI: MRI C SPINE Imaging Location: [facility] PT TO BRING CD AND ARRIVE 45 MINS EARLY * Telephone Encounter - Shayy Poole - 01/11/2021 2:01 PM CDT MAINTENANCE SHOP MANAGER referral for dx of radiculopathy, cervical region, sciatica. Records received. documented in this encounter Plan of Treatment Upcoming Encounters Date Type Department Care Team (Late st Contact Info) Description 05/22/2024 10:45 AM SECRETARY OFFICE CLERK Hospital Encounter [facility] Endoscopy [address] [address] Nikolay Boucher MD [address] [facility] [place] [address] 05/22/2024 10:45 AM SECRETARY OFFICE CLERK - 05/22/2024 11:15 AM SECRETARY OFFICE CLERK Surgery [facility] Endoscopy [address] [address] Nikolay Boucher MD [address] [facility] [place] [address] EGD Scheduled Procedures Name Priority Associated Diagnoses Date/Ti ks ESOPHAGOGASTRODUODENOSCOPY Crohn's disease of both small and large intestine with intestinal obstruction (HCC) 05/22/2024 10:45 AM SECRETARY OFFICE CLERK documented as of this encounter Visit Diagnoses Not on filedocumented in this encounter Care Teams Residential Support Worker Relationship Specialty Start Date End Date Tip Armenta MD [id number] [address] PCP - General Family Medicine 03/18/19 Eleanor Ramon MD [address] [place] [address] Medical Oncologist/Rn Mobile Hematology 07/12/20 documented as of this encounter
--- OUTSIDE RECORDS SUMMARY | 2024-05-18 22:16 | XMS_ITS | Encounter Summary ---
Author Organization [facility] Address [address] [place] [address] Phone Care Team Providers Care Order Analyst Name Role Phone Tip Armenta MD Primary Care Provider [phone] Eleanor Ramon MD Unavailable [phone] Encounter Details Date Type Department Care Team (Late st Contact Info) Description 07/11/2020 Telephone [facility] Gastroenterology [address] [facility] 8th [place] [address] [place] [address] Norberto Patel RMA Social History Tobacco Use Types Packs/Day Years Used Date Smoking Tobacco: Never Smokeless Tobacco: Never Sex and Gender Information Value Date Recorded Sex Assigned at Not on file Legal Sex Male 1:20 AM EDITOR GREETING CARD Gender Identity Not on file Sexual Orientation Not on file documented as of this encounter Miscellaneous Notes * Telephone Encounter - Norberto Patel RMA - 07/14/2020 8:21 AM EDITOR GREETING CARD He is on for Saturday. Thank you! OR GREETING CARD * Telephone Encounter - Roe-Claudia Mack NP - 07/13/2020 4:33 PM CST Since it is a video visit and I have space on Saturday, we could certainly move his appointment up saturday OR GREETING CARD * Telephone Encounter - Roxanna Valenzuela MD - 07/13/2020 10:41 AM EDITOR GREETING CARD He should just speak to Tri at the visit OR GREETING CARD * Telephone Encounter - Norberto Patel RMA - 07/13/2020 10:23 AM EDITOR GREETING CARD Pt took it upon himself to increase his vitamin D and switch from D2 to D3, not his family doctor. Pt states AG is the only physician that has monitored his vitamin D. Pt is scheduled to see Tri on 07/18/20. I suggested to him that he should consider discussing his concerns with his deficiency at his appt. At this point, is there anything you would like me to relay to the pt? OR GREETING CARD * Telephone Encounter - Roxanna Valenzuela MD - 07/12/2020 12:29 PM EDITOR GREETING CARD He should follow up with his family doctor who is manging his vit d - only one doctor should be doing this OR GREETING CARD * Telephone Encounter - Norberto Patel RMA - 07/12/2020 9:40 AM EDITOR GREETING CARD Change of vitamin D meds for pt He is taking D3 10,000 units 1 cap daily as suggested by his family doctor. He states that he has been taking it this way for several months and still has deficiency. Pt is inquiring if you would suggest an injection of Vitamin D or something along those lines. OR GREETING CARD * Telephone Encounter - Norberto Patel RMA - 07/11/2020 3:51 PM EDITOR GREETING CARD LMOR letting pt know it is recommended to increase vitamin D capsules to 1 weekly instead of once amonth. I asked for pt to call to confirm understanding and to verify his supply. OR GREETING CARD * Telephone Encounter - Roxanna Valenzuela MD - 07/11/2020 3:37 PM EDITOR GREETING CARD He can increase to 50,000 u weekly and we can recheck the level in 2 months OR GREETING CARD * Telephone Encounter - Norberto Patel RMA - 07/11/2020 12:48 PM EDITOR GREETING CARD Ergocalciferol 50,000 units-Take 1 cap PO one day a month OR GREETING CARD * Telephone Encounter - Roxanna Valenzuela MD - 07/11/2020 12:43 PM EDITOR GREETING CARD I need the dose and frequency OR GREETING CARD * Telephone Encounter - Norberto Patel RMA - 07/11/2020 12:41 PM EDITOR GREETING CARD He's taking D2 OR GREETING CARD * Telephone Encounter - Roxanna Valenzuela MD - 07/11/2020 12:13 PM EDITOR GREETING CARD What dose is he taking and is it D3 or D2? OR GREETING CARD * Telephone Encounter - Norberto PatelJOSEPH so - 07/11/2020 11:42 AM EDITOR GREETING CARD Pt called re: his low vitamin D levels and how consistently low it been. He states that he does take the vitamin D pills but wanted to know if the is something better than pills because he is constantly achy. He is scheduled for a follow up appt with Tri on 07/18/20 @ 8:30a. Please advise OR GREETING CARD documented in this encounter Plan of Treatment Upcoming Encounters Date Type Department Care Team (Late st Contact Info) Description 05/22/2024 10:45 AM EDITOR GREETING CARD Hospital Encounter [facility] Endoscopy [address] [place] [address] Nikolay Boucher MD [address] [place] [address] 05/22/2024 10:45 AM EDITOR GREETING CARD - 05/22/2024 11:15 AM EDITOR GREETING CARD Surgery [facility] Endoscopy [address] [address] Nikolay Boucher MD [address] [place] [address] EGD Scheduled Procedures Name Priority Associated Diagnoses Date/Ti nd ESOPHAGOGASTRODUODENOSCOPY Crohn's disease of both small and large intestine with intestinal obstruction (HCC) 05/22/2024 10:45 AM EDITOR GREETING CARD documented as of this encounter Visit Diagnoses Not on filedocumented in this encounter Care Teams Order Analyst Relationship Specialty Start Date End Date Tip Armenta MD [address] [facility] [address] PCP - General Family Medicine 03/18/19 Eleanor Ramon MD [address] [place] [address] Medical Oncologist/Microgrinder Operator Hematology 07/12/20 documented as of this encounter
--- OUTSIDE RECORDS SUMMARY | 2024-05-18 22:16 | XMS_ITS | Encounter Summary ---
Author Organization [facility] Address [address] [place] [address] Phone Care Team Providers Care News Assignment Editor Name Role Phone Luis Maya MD Primary Care Provider [phone] Encounter Details Date Type Department Care Team (Late st Contact Info) Description 02/17/2019 Orders Only [facility] Gastroenterology [address] [facility] 8th [place] [address] [place] [id number] Nya Hand, RN Crohn's disease of small and large intestines with complication (CMS/HCC) (Primary Dx) Social History Tobacco Use Types Packs/Day Years Used Date Smoking Tobacco: Never Smokeless Tobacco: Never Sex and Gender Information Value Date Recorded Sex Assigned at Not on file Legal Sex Male 1:20 AM MONEY COUNTER Gender Identity Not on file Sexual Orientation Not on file documented as of this encounter Ordered Prescriptions Prescription Sig Dispense Quantity Refills Last Filled Start Date End Date adalimumab (HUMIRA PEN) 40 mg/0.4 mL pen injector kitIndications:Volcanology Professor hn's disease of small and large intestines with complication (HCC) Inject 0.4 mL (40 mg total) under the skin every 14 (fourteen) days SAFETY LABS REQUIRED EVERY 3 MONTHS FOR REFILLS DUE 04/2019 2 each 5 02/17/2019 0 documented in this encounter Plan of Treatment Upcoming Encounters Date Type Department Care Team (Late st Contact Info) Description 05/22/2024 10:45 AM MONEY COUNTER Hospital Encounter [facility] Endoscopy [address] [address] Nikolay Boucher MD [address] [place] [address] 05/22/2024 10:45 AM MONEY COUNTER - 05/22/2024 11:15 AM MONEY COUNTER Surgery [facility] Endoscopy [address] [address] Nikolay Boucher MD [address] [place] [address] EGD Scheduled Procedures Name Priority Associated Diagnoses Date/Ti ny ESOPHAGOGASTRODUODENOSCOPY Crohn's disease of both small and large intestine with intestinal obstruction (HCC) 05/22/2024 10:45 AM MONEY COUNTER documented as of this encounter Visit Diagnoses Diagnosis Crohn's disease of small and large intestines with complication (HCC)- Primary Crohn's disease of both small and large intestine with intestinal obstruction (HCC) documented in this encounter Discontinued Medications Medication Sig Discontinue Reason Start Date End Da te adalimumab 40 mg/0.4 mL pen injector kit Inject 1 pen under the skin every 14 (fourteen) days SAFETY LABS REQUIRED EVERY 3 MONTHS FOR REFILLS DUE 10/2018 Reorder 08/19/2018 02/17/2019 documented as of this encounter Care Teams News Assignment Editor Relationship Specialty Start Date End Date Luis Maay MD [address] [place] [id number] PCP - General 07/23/16 03/17/19 documented as of this encounter
--- OUTSIDE RECORDS SUMMARY | 2024-05-18 22:16 | XMS_ITS | Encounter Summary ---
Author Organization [facility] Address [address] [place] [address] Phone Care Team Providers Care Framing Consultant Name Role Phone Luis Maya MD Primary Care Provider [phone] Encounter Details Date Type Department Care Team (Late st Contact Info) Description 03/09/2019 Orders Only [facility] Gastroenterology [address] [facility] 8th [place] [address] [place] [address] Nya Hand RN Esophageal yeast infection (CMS/HCC) (Primary Dx) Social History Tobacco Use Types Packs/Day Years Used Date Smoking Tobacco: Never Smokeless Tobacco: Never Sex and Gender Information Value Date Recorded Sex Assigned at Not on file Legal Sex Male 1:20 AM SOUS CHEF Gender Identity Not on file Sexual Orientation Not on file documented as of this encounter Ordered Prescriptions Prescription Sig Dispense Quantity Refills Last Filled Start Date End Date nystatin 100,000 unit/mL suspensionIndicati ons:Esophageal yeast infection (CMS/HCC) (HCC) Take 5 ml PO 2 times daily,swish and swallow for 7 days 70 mL 1 03/09/2019 9 documented in this encounter Plan of Treatment Upcoming Encounters Date Type Department Care Team (Late st Contact Info) Description 05/22/2024 10:45 AM SOUS CHEF Hospital Encounter [facility] Endoscopy [address] [address] Nikolay Boucher MD [address] [place] [address] 05/22/2024 10:45 AM SOUS CHEF - 05/22/2024 11:15 AM SOUS CHEF Surgery [facility] Endoscopy [address] [address] Nikolay Boucher MD [address] [place] [address] EGD Scheduled Procedures Name Priority Associated Diagnoses Date/Ti me ESOPHAGOGASTRODUODENOSCOPY Crohn's disease of both small and large intestine with intestinal obstruction (HCC) 05/22/2024 10:45 AM SOUS CHEF documented as of this encounter Visit Diagnoses Diagnosis Esophageal yeast infection (CMS/HCC) (HCC)- Primary Candidiasis of the esophagus Crohn's disease of both small and large intestine with intestinal obstruction (HCC) documented in this encounter Discontinued Medications Medication Sig Discontinue Reason Start Date End Da te nystatin 100,000 unit/mL suspension Take 5 ml PO 2 times daily,swish and swallow for 7 days Reorder 06/30/2018 03/09/2019 documented as of this encounter Care Teams Framing Consultant Relationship Specialty Start Date End Date Luis Maya MD [facility] [place] [address] PCP - General 07/23/16 03/17/19 documented as of this encounter
--- OUTSIDE RECORDS SUMMARY | 2024-05-18 22:16 | XMS_ITS | Encounter Summary ---
Author Organization [facility] Healthcare Address [address] [place] [address] Care Team Providers Care Twenty One Dealer Name Role Phone Tip Armenta MD Primary Care Provider [phone] Eleanor Ramon MD Unavailable [phone] Encounter Details Date Type Department Care Team (Late st Contact Info) Description 12/30/2020 7:00 AM CDT - 12/30/2020 8:00 AM CDT Surgery [facility] Endoscopy [address] [place] [address] Roxanna Valenzuela MD [address] [place], [place] [address] COLONOSCOPY Surgery Details Date/Time Status Location OR Service Patient Class Case Class Case Type Trauma Case? 12/30/2020 7:[address] [facility] ENDOSCOPY Endo 01 Gastroenterology Outpatient Elective Panel 1 Procedure LRB Anes Op Region Wound Class Comments COLONOSCOPY N/A Monitor Anesthesia Care Colon N/A ESOPHAGOGASTRODUODENOSCOPY BIOPSY N/A Monitor Anesthesia Care N/A Surgeon Surgeon Role Service Panel Roxanna Valenzuela MD Primary Gastroente rology 1 documented in this encounter Social History Tobacco Use Types Packs/Day Years Used Date Smoking Tobacco: Never Smokeless Tobacco: Never AUDIT-C Answer Date Recorded Q1: How often do you have a drink containing alc ohol? Never 12/30/2020 Average Number of Drinks Not on file 021 Frequency of Binge Drinking Not on file 0810/2020 Sex and Gender Information Value Date Recorded Sex Assigned at Not on file Legal Sex Male 1:20 AM JAVA GROOVY DEVELOPER Gender Identity Not on file Sexual [...] 6:10 AM CDT documented in this encounter Medications at Time [...] PO QAM 2 07/14/201802/10 1 vit A-vit C-omds-lixgdebn 15 mg lozenge Take 1 tablet by mouth as needed 10/12/2016 2 documented as of this encounter Discharge Disposition Disposition Code Departure Means Destination Discharge to home or self care documented in this encounter H&P Notes * ValenzuelaRoxanna cardenas MD - 12/29/2020 2:12 PM CDT Pre [...] CODEINE #3) 300-30 mg per tablet 02/09/18 Shaun Chavarria MD adalimumab (Humira,CF, Pen) 40 mg/0.4 mL pen injector kit Inject 0.4 mL (40 mg total) under the skin every 14 (fourteen) days Safety labs required every 3 months for med refills, labs due DEACON. 11/30/20 Roxanna Valenzuela MD ALPRAZolam (XANAX) 1 mg tablet TK 1/2 TO 1 T PO BID PRF ANXIETY 11/21/17 Shaun Chavarria MD BD SAFETYGLIDE SYRINGE 3 [...] QAM 07/14/18 Shaun Chavarria MD vit A-vit E-eeby-xhohzdoi (ZINC WITH VITAMINS A AND C) 15 [...] Male Attending MD: Roxanna Valenzuela M.D. Room: [facility] ENDOSCOPY ROOM 01 Note Status: Finalized [...] scope was passed under direct vision. The [id number] was introduced through the anus and advanced [...] hours - Please call the Nurse Coordinator: [phone] After hours, evening, nights, weekends and holidays - Please call the hospital fusing machine operator at and ask for the GI fellow rn liaison. Attending Participation: I personally performed the entire procedure. Electronically signed by Roxanna Valenzuela M.D. Roxanna Valenzuela M.D. 12/30/2020 7:41:30 AM Number of Addenda: 0 Note Initiated On: 12/30/2020 7:17 AM * Roxanna Valenzuela MD - 12/30/2020 7:02 AM CDTAssociated Order(s): EGD ENDOSCOPY LAB Patient Name: Mello Talley Procedure Date: 12/30/2020 7:02 AM Date of : 1965 Admit Type: Outpatient Age: 55 Gender: Male Attending MD: Roxanna Valenzuela M.D. Room: [facility] ENDOSCOPY ROOM 01 Note Status: Finalized Procedure: Upper GI endoscopy Indications: Dysphagia, on QD high dose PPI Providers: Roxanna Valenzueal M.D. Referring MD: Tip Armenta M.D. Medicines: [...] and oxygen saturations were monitored continuously. The [id number] was introduced through the mouth, and advanced [...] hours - Please call the Nurse Coordinator: [phone] After hours, evening, nights, weekends and holidays - Please call the hospital fusing machine operator at and ask for the GI fellow rn liaison. - Increase PPI x 4 wks - [...] have been give re:Bowel prep. Come to [facility] main entrance. There is a small [address] at the entrance with free pulley worker parking or you may park in front of the building. As you enter there will be an information desk, let them know you are here for a procedure. You will be directed to the elevator in lob. Once on elevator press button for procedure [...] by yourself will be allowed. According to [facility] guidelines for your safety and the safety [...] st Contact Info) Description 05/22/2024 10:45 AM [facility] Hospital Encounter [facility] Endoscopy [address] [place] [address] Nikolay Boucher MD [address] [place] [address] 05/22/2024 10:45 AM JAVA GROOVY DEVELOPER - 05/22/2024 11:15 AM JAVA GROOVY DEVELOPER Surgery [facility] Endoscopy [address] [address] Nikolay Boucher MD [address] [place] [address] EGD Scheduled Procedures Name Priority Associated Diagnoses Date/Ti me ESOPHAGOGASTRODUODENOSCOPY Crohn's disease of both small and large intestine with intestinal obstruction (HCC) 05/22/2024 10:45 AM JAVA GROOVY DEVELOPER documented as of this encounter Procedures [...] Male Attending MD: Roxanna Valenzuela M.D. Room: [facility] ENDOSCOPY ROOM 01 Note Status: Finalized [...] The scope was passed under direct vision.The [id number] was introduced through the anusand advanced to [...] business hours - Please call theNurse Coordinator: [phone] After hours, evening, nights, weekends and holidays- Please call the hospital fusing machine operator at and ask for the GI fellow rn liaison. Attending Participation: I personally performed the entire [...] results best viewed via link to PDF [facility] [place] [address] Note to Patients: This report may contain [...] Gender: ??M : ??1965 (Age: 55) Address: ??[address] ??[address] Hospital #: ??[id number] Taken:12/30/2020 Received:12/30/2020 Reported: 01/02/2021 Patient Type: [facility] Client ?[facility] Service: Gastro Location: [facility] Physician(s): ??Janis Catalan M.D. [...] interpretation for this case was performed at [facility], Department of Surgical Pathology, [address] [facility] [address], [id number], ??[facility], [place] ??[address] ?? CLIA # [id number] HEENA Ruiz History: The patient is a [...] Stained with hematoxylin. ??Labeled A1. ??Jar 0. [facility]/12/30/2020 09:57 PA(s): ABRAHAM Hester, CT (ASCP) By this signature, I attest that the above diagnosis is based upon my personal examination of the slides(and/or other material). Addenda/Procedures The performance characteristics of some immunohistochemical stains, fluorescence in-situ hybridization tests and immunophenotyping by flow cytometry cited in this report (if any) were determined by the Surgical Pathology and Flow Cytometry Departments at [facility] as part of an ongoing supplier quality program and in compliance with federally mandated [...] Surgical Pathology and Flow Cytometry Departments of [facility]. ??It has not been cleared or approved by the U. S. Food and Drug Administration. IMAGES AND SCANNED DOCUMENTS, IF INCLUDED, ONLY VIEWABLE IN PDF VERSION OF REPORT us Roxanna Valenzuela MD LAB PATHOLOGY ORDER [place] Final Result PATHOLOGY [facility] [phone] * EGD (12/30/2020 7:02 AM CDT) Anatomical Region Laterality Modality Other Narrative Procedure Note Roxanna Valenzuela MD - 12/30/2020 7:02 AM CDT ENDOSCOPY LAB Patient Name: Mello Talley Procedure Date: 12/30/2020 7:02 AM Date of : 1965 Admit Type: Outpatient Age: 55 Gender: Male Attending MD: Roxanna Valenzuela M.D. Room: [facility] ENDOSCOPY ROOM 01 Note Status: Finalized [...] and oxygen saturations were monitored continuously. The [id number] was introduced through the mouth, and advanced [...] business hours - Please call theNurse Coordinator: [phone] After hours, evening, nights, weekends and holidays- Please call the hospital fusing machine operator at and ask for the GI fellow rn liaison. - Increase PPI x 4 wks - Await pathology results. Attending Participation: I personally performed the entire procedure. Electronically signed by Roxanna Valenzuela M.D. Roxanna Valenzuela M.D. 12/30/2020 7:17:15 AM Number of Addenda: 0 Note Initiated On: 12/30/2020 7:02 AM us Roxanna Valenzuela MD ENDOSCOPY PROCEDURE S Final Result * T-SPOT.TB (12/30/2020 6:45 AM CDT) T-SPOT.TB Negative SeeBelbrody HICKEY Comment: Normal Value: Negative A negative [...] test. T-SPOT.TB Panel A Spot Count 1 CERNER S[facility] T-SPOT.TB Panel B Spot Count 1 SUPRIYANER SONNYWCH T-SPOT.TB Negative Control Passed AMANDA HICKEY T-SPOT.TB Positive Control Passed AMANDA DENNISWCH Comment: Test Performed at: [place], [place] ??[address] ? LALITO MUIR MD,PHD Blood specimen (specimen) 12/30/2020 6:45 AM CDT 12/30/2020 6:54 AM CDT Roxanna Valenzuela MD LAB MICROBIOLOGY - GENERAL ORDERABLES Final Result [facility] [address] [address] Department [place] [address] * (ABNORMAL) Hepatic function panel (12/30/2020 6:45 AM CDT) Bilirubin, total 1.9(H) 0.1 - 1.2 mg/dL [facility] Bilirubin, direct 0.3 0.1 - 0.3 mg/dL CERNER [facility] Protein, pl 7.5 6.5 - 8.5 g/dL CERNER [facility] Albumin 4.6 3.5 - 5.0 g/dL CERMYNOR [facility] Alk phos 118 40 - 130 Units/L CERNER [facility] ALT 30 7 - 55 Units/L CERNER [facility] AST 35 10 - 50 Units/L SUPRIYANER [facility] Blood specimen (specimen) 12/30/2020 6:45 AM CDT 12/30/2020 6:54 AM CDT us Roxanna Valenzuela MD LAB BLOOD ORDERABLE S Final Result AMANDA HICKEY [address] [address] [place] [address] documented in this encounter Visit Diagnoses Diagnosis [...] 10/2020 documented in this encounter Care Teams Twenty One Dealer Relationship Specialty Start Date End Date Tip Armenta MD [address] [address] PCP - General Family Medicine 03/18/19 Eleanor Ramon MD [address] [facility] [address] [place] [address] Medical Oncologist/Under Presser Hematology 07/12/20 documented as of this encounter
--- OUTSIDE RECORDS SUMMARY | 2024-05-18 22:16 | XMS_ITS | Encounter Summary ---
Author Organization [facility] Address [address] [place] [address] Phone Care Team Providers Care Chucking And Boring Machine Operator Name Role Phone Tip Armenta MD Primary Care Provider [phone] Eleanor Ramon MD Unavailable [phone] Encounter Details Date Type Department Care Team (Late st Contact Info) Description 11/04/2019 Orders Only [facility] Scanning, Provider Social History Tobacco Use Types Packs/Day Years Used Date Smoking Tobacco: Never Smokeless Tobacco: Never Sex and Gender Information Value Date Recorded Sex Assigned at Not on file Legal Sex Male 1:20 AM DRAFTER MARINE Gender Identity Not on file Sexual Orientation Not on file documented as of this encounter Plan of Treatment Upcoming Encounters Date Type Department Care Team (Late st Contact Info) Description 05/22/2024 10:45 AM DRAFTER MARINE Hospital Encounter [facility] Endoscopy [address] [place] [address] Nikolay Boucher MD [address] [place] [address] 05/22/2024 10:45 AM DRAFTER MARINE - 05/22/2024 11:15 AM DRAFTER MARINE Surgery [facility] Endoscopy [address] [place] [address] Nikolay Boucher MD [address] [place] [address] EGD Scheduled Procedures Name Priority Associated Diagnoses Date/Ti me ESOPHAGOGASTRODUODENOSCOPY Crohn's disease of both small and large intestine with intestinal obstruction (HCC) 05/22/2024 10:45 AM DRAFTER MARINE documented as of this encounter Procedures Procedure Name Priority Date/Time Associated Diagnosis Comments SCAN - LABS 11/04/2019 documented in this encounter Results * SCAN - LABS (11/04/2019) us Provider Scanning Final Result documented in this encounter Visit Diagnoses Not on filedocumented in this encounter Care Teams Chucking And Boring Machine Operator Relationship Specialty Start Date End Date Tip Armenta MD [address] [address] PCP - General Family Medicine 03/18/19 Eleanor Ramon MD [address] [place] [address] Medical Oncologist/Photographic Enlarger Operator Hematology 07/12/20 documented as of this encounter
--- OUTSIDE RECORDS SUMMARY | 2024-05-18 22:16 | XMS_ITS | Encounter Summary ---
Author Organization [facility] Address [address] [place] [address] Phone Care Team Providers Care Brim Blocker Name Role Phone Tip Armenta MD Primary Care Provider [phone] Eleanor Ramon MD Unavailable [phone] Encounter Details Date Type Department Care Team (Late st Contact Info) Description 11/30/2020 Orders Only [facility] Gastroenterology [address] [facility] 8th [place] [address] [place] [address] Nati Castillo LPN Crohn's disease of both small and large intestine with intestinal obstruction (CMS/HCC) (Primary Dx); High risk medications (not anticoagulants) long-term use Social History Tobacco Use Types Packs/Day Years Used Date Smoking Tobacco: Never Smokeless Tobacco: Never Sex and Gender Information Value Date Recorded Sex Assigned at Not on file Legal Sex Male 1:20 AM PLATE GAUGER Gender Identity Not on file Sexual Orientation Not on file documented as of this encounter Plan of Treatment Upcoming Encounters Date Type Department Care Team (Late st Contact Info) Description 05/22/2024 10:45 AM PLATE GAUGER Hospital Encounter [facility] Endoscopy [address] [place] [address] Nikolay Boucher MD [address] [place] [address] 05/22/2024 10:45 AM PLATE GAUGER - 05/22/2024 11:15 AM PLATE GAUGER Surgery [facility] Endoscopy [address] [address] Nikolay Boucher MD [address] [place] [address] EGD Scheduled Orders Name Type Priority Associated Diagnoses Orde r Schedule CBC with auto differential Lab Routine Crohn's disease of both small and large intestine with intestinal obstruction (CMS/HCC) High risk medications (not anticoagulants) long-term use Every 3 months for 2 Occurrences starting 11/30/2020 until 11/30/2021, 1 completed Hepatic function panel Lab Routine Crohn's disease of both small and large intestine with intestinal obstruction (CMS/HCC) High risk medications (not anticoagulants) long-term use Every 3 months for 2 Occurrences starting 11/30/2020 until 11/30/2021, 1 completed Scheduled Procedures Name Priority Associated Diagnoses Date/Ti me ESOPHAGOGASTRODUODENOSCOPY Crohn's disease of both small and large intestine with intestinal obstruction (HCC) 05/22/2024 10:45 AM PLATE GAUGER documented as of this encounter Procedures Procedure Name Priority Date/Time Associated Diagnosis Comments COPY(IES) SENT TO: Routine 05/11/2021 11 :31 AM PLATE GAUGER CBC WITH AUTO DIFFERENTIAL Routine 05/11/2021 11:31 AM PLATE GAUGER Crohn's disease of both small and large intestine with intestinal obstruction (HCC) High risk medications (not anticoagulants) long-term use HEPATIC FUNCTION PANEL Routine 05/11/2021 11:31 AM PLATE GAUGER Crohn's disease of both small and large intestine with intestinal obstruction (HCC) High risk medications (not anticoagulants) long-term use documented in this encounter Results * COPY(IES) SENT TO: (05/11/2021 11:31 AM PLATE GAUGER) COPY(IES) SENT TO: [facility] Comment: ?[facility] ?COPY TO ACCOUNT ?[id number] ?[place] [address] 05/11/2021 11:3 1 AM PLATE GAUGER 05/11/2021 11:32 AM PLATE GAUGER Narrative [facility] - 05/12/2021 10:56 AM PLATE GAUGER FASTING:NO FASTING: NO us Roxanna Valenzuela MD LAB BLOOD ORDERABLE S Final Result [facility] * Hepatic function panel (05/11/2021 11:31 AM PLATE GAUGER) Pathologist [facility] Protein, Total 7.3 6.4 - 8.4 g/dL [facility] Albumin 4.3 3.6 - 5.1 g/dL [facility] Globulin 3.0 2.2 - 4.0 g/dL (calc) [facility] Alb/glob ratio 1.4 0.9 - 2.3 (calc) [facility] Bilirubin, total 0.6 0.2 - 1.2 mg/dL [facility] Bilirubin, direct 0.1 < OR = 0.2 mg/dL [facility] Bilirubin, indirect 0.5 0.2 - 1.2 mg/dL (calc) [facility] Alk phos 98 35 - 144 U/L [facility] AST 23 10 - 35 U/L [facility] ALT (SGPT) 20 9 - 46 U/L [facility] Blood specimen (specimen) 05/11/2021 11:31 AM PLATE GAUGER 05/11/2021 11:32 AM PLATE GAUGER Narrative [facility] - 05/12/2021 10:56 AM PLATE GAUGER FASTING:NO FASTING: NO Roxanna Valenzuela MD LAB BLOOD ORDERABLE S Final Result Performing Organization Address City/[facility]/ZIP Co de Phone Number [facility] [address] [address] * (ABNORMAL) CBC with auto differential (05/11/2021 11:31 AM PLATE GAUGER) WBC 8.1 3.8 - 10.8 Thousand/u L [facility] RBC, POC 4.92 4.20 - 5.80 Million/uL [facility] Hgb 12.8(L) 13.2 - 17.1 g/dL [facility] Hct 40.5 38.5 - 50.0 % [facility] MCV 82.3 80.0 - 100.0 fL [facility] MCH 26.0(L) 27.0 - 33.0 pg [facility] MCHC 31.6(L) 32.0 - 36.0 g/dL [facility] Rdw 15.3(H) 11.0 - 15.0 % [facility] Platelets 257 140 - 400 Thousand/u L [facility] MPV 9.9 7.5 - 12.5 fL [facility] Neutrophils, abs 5,289 1,500 - 7,800 cells/uL [facility] Lymphocytes, abs 1,661 850 - 3,900 cells/uL [facility] Monocyte abs 826 200 - 950 cells/uL [facility] Eosinophils, abs 251 15 - 500 cells/uL [facility] Basophils, abs 73 0 - 200 cells/uL [facility] Neutrophils 65.3 % [facility] Lymphocyte pct 20.5 % [facility] Monocytes 10.2 % [facility] Eosinophils 3.1 % [facility] Basophils 0.9 % [facility] Blood specimen (specimen) 05/11/2021 11:31 AM PLATE GAUGER 05/11/2021 11:32 AM PLATE GAUGER Narrative [facility] - 05/12/2021 10:56 AM PLATE GAUGER FASTING:NO FASTING: NO Roxanna Valenzuela MD LAB BLOOD ORDERABLE S Final Result [facility] [address] [place] [address] documented in this encounter Visit Diagnoses Diagnosis Crohn's disease of both small and large intestine with intestinal obstruction (HCC)- Primary High risk medications (not anticoagulants) long-term use Encounter for long-term (current) use of other medications Crohn's disease of both small and large intestine with intestinal obstruction (HCC) documented in this encounter Care Teams Brim Blocker Relationship Specialty Start Date End Date Tip Armenta MD [email or web address] [address] PCP - General Family Medicine 03/18/19 Eleanor Ramon MD [address] [facility] [address] [place] [address] Medical Oncologist/Front Desk Team Member Hematology 07/12/20 documented as of this encounter
--- OUTSIDE RECORDS SUMMARY | 2024-05-18 22:16 | XMS_ITS | Encounter Summary ---
Author Organization [facility] Address [address] [place] [address] Phone Care Team Providers Care Application Designer Name Role Phone Tip Armenta MD Primary Care Provider [phone] Eleanor Ramon MD Unavailable [phone] Reason for Visit * Reason Onset Date Comments F/U to ED Visit 12/19/2020 Encounter Details Date Type Department Care Team (Late st Contact Info) Description 12/19/2020 Telephone [facility] Gastroenterology [facility] 8th [place] [address] [place] [address] Norberto Patel RMA F/U to ED Visit Social History Tobacco Use Types Packs/Day Years Used Date Smoking Tobacco: Never Smokeless Tobacco: Never Sex and Gender Information Value Date Recorded Sex Assigned at Not on file Legal Sex Male 1:20 AM WOOL HAT HYDRAULICKER Gender Identity Not on file Sexual Orientation Not on file documented as of this encounter Miscellaneous Notes * Telephone Encounter - Nati Castillo LPN - 12/21/2020 3:47 PM CDT Portal msg sent to pt - letting him know that Sofia will reach out to him to coordinate EGD. To stayon PPI BID. * Telephone Encounter - Roxanna Valenzuela MD - 12/19/2020 3:46 PM CDT I spoke to Sofia this morning- needs an egd and stay on bid ppi; his last egd( 5 urs ago) only had ahiatal hernia and I bet he has a schatski ring at the proximal hiatal hernia * Telephone Encounter - Nati Castillo LPN - 12/19/2020 3:20 PM CDT Call placed to pt to follow up per msg below. Spoke with Mello who states that he got food stuck in his throat over the weekend, reports that his breathing was fine and never affected. However, reports that he did have to go to local ED as he was unable to clear his throat despite trying different measures at home. Pt reports that he's had esophageal issues over the last several yrs but reports that it has never occurred to the extent that it did this time resulting in him having to go to the hospital. Reports that he's been eating softer foods since discharge. Currently takes OTC Lansoprazole2 tabs daily. Aside from that, is not taking anything else for GERD/reflux. Pt states that he feelsthat maybe an endoscopy would be necessary, also says that he's overdue for a colonoscopy and wouldbe fine with having to have both done, would prefer first case of the day/early AM appointment. * Telephone Encounter - Norberto Patel RMA - 12/19/2020 11:17 AM CDT Pt seen in ED over the weekend (note in chart from visit). He states that he needs a scope but wants to know what are the next steps. Thinks he needs surgery. Pt can be reached by phone. documented in this encounter Plan of Treatment Upcoming Encounters Date Type Department Care Team (Late st Contact Info) Description 05/22/2024 10:45 AM WOOL HAT HYDRAULICKER Hospital Encounter [facility] Endoscopy [address] [place] [address] Nikolay Boucher MD [address] [place] [address] 05/22/2024 10:45 AM WOOL HAT HYDRAULICKER - 05/22/2024 11:15 AM WOOL HAT HYDRAULICKER Surgery [facility] Endoscopy [address] [address] Nikolay Boucher MD [address] [place] [address] EGD Scheduled Procedures Name Priority Associated Diagnoses Date/Ti me ESOPHAGOGASTRODUODENOSCOPY Crohn's disease of both small and large intestine with intestinal obstruction (HCC) 05/22/2024 10:45 AM WOOL HAT HYDRAULICKER documented as of this encounter Visit Diagnoses Not on filedocumented in this encounter Care Teams Application Designer Relationship Specialty Start Date End Date Tip Armenta MD [address] [address] PCP - General Family Medicine 03/18/19 Eleanor Ramon MD [address] [place] [address] Medical Oncologist/Hot Mix Operator Hematology 07/12/20 documented as of this encounter
--- OUTSIDE RECORDS SUMMARY | 2024-05-18 22:17 | XMS_ITS | Encounter Summary ---
Author Organization [facility] Healthcare Address [address] [place] [address] Care Team Providers Care Isobutylene Operator Chief Name Role Phone Luis Maya MD Primary Care Provider [phone] Encounter Details Date Type Department Care Team (Latest Contact Info) Description 06/18/2017 2:17 PM STATION MECHANIC HELPER - 08/20/2017 11:59 PM CDT Hospital Encounter [facility] OP INTERIM [phone] Eleanor Ramon MD [address] [facility] [address] [place], [place] [id number] Discharge Disposition: Discharge to home or self care Social History Tobacco Use Types Packs/Day Years Used Date Smoking Tobacco: Never Sex and Gender Information Value Date Recorded Sex Assigned at Not on file Legal Sex Male 1:20 AM STATION MECHANIC HELPER Gender Identity Not on file Sexual Orientation Not on file documented as of this encounter Medications at Time of Discharge lansoprazole (PREVACID) 15 mg capsule Take 1 capsule (15 mg total) by mouth 2 (two) times a day 10/12/2016 magnesium oxide,aspartate ,citr 400 mg magnesium capsule Take 1 capsule by mouth as needed 10/12/2016 adalimumab (HUMIRA PEN) 40 mg/0.8 mL pen injector kit INJECT THE CONTENTS OF ONE PEN (40 MG) SUBCUTANEOUSLY EVERY 14 DAYS (safety labs due every 3 months Due 11/2017) 05/02/2016 8 vit A-vit [id number]-[id number] 15 mg lozenge Take 1 tablet by mouth as needed 10/12/2016 2 documented as of this encounter Discharge Disposition Disposition Code Departure Means Destination Discharge to home or self care documented in this encounter Plan of Treatment Upcoming Encounters Date Type Department Care Team (Late st Contact Info) Description 05/22/2024 10:45 AM STATION MECHANIC HELPER Hospital Encounter [facility] Endoscopy [address] [place] [address] Nikolay Boucher MD [address] [place] [address] 05/22/2024 10:45 AM STATION MECHANIC HELPER - 05/22/2024 11:15 AM STATION MECHANIC HELPER Surgery [facility] Endoscopy [address] [place] [address] Nikolay Boucher MD [address] [place] [address] EGD Scheduled Procedures Name Priority Associated Diagnoses Date/Ti me ESOPHAGOGASTRODUODENOSCOPY Crohn's disease of both small and large intestine with intestinal obstruction (HCC) 05/22/2024 10:45 AM STATION MECHANIC HELPER documented as of this encounter Procedures Procedure Name Priority Date/Time Associated Diagnosis Comments CBC WITH AUTO DIFFERENTIAL Routine Gen Lab 08/20/2017 1:58 PM CDT RETICULOCYTES Routine Gen Lab 08/20/2017 1:58 PM CDT IRON PROFILE W/ IBC Routine Gen Lab 08/20/2017 1 2:00 PM CDT FERRITIN Routine Gen Lab 08/20/2017 12:00 PM CDT HEPATIC FUNCTION PANEL Routine Gen Lab 08/20/2017 12:00 PM CDT CBC WITH AUTO DIFFERENTIAL Routine Gen Lab 07/23/2017 3:36 PM STATION MECHANIC HELPER RETICULOCYTES Routine Gen Lab 07/23/2017 3:36 PM STATION MECHANIC HELPER IRON PROFILE W/ IBC Routine Gen Lab 07/23/2017 3 :30 PM STATION MECHANIC HELPER FERRITIN Routine Gen Lab 07/23/2017 3:30 PM STATION MECHANIC HELPER DISCHARGE LABORATORY CUMULATIVE REPORT 06/18/2017 12:00 AM STATION MECHANIC HELPER documented in this encounter Results * CBC with auto differential (08/20/2017 1:58 PM CDT) [facility] WBC 7.3 3.8 - 9.8 K/cumm [facility] RBC 5.30 4.50 - 5.70 M/cumm [facility] Hgb 15.9 13.8 - 17.2 g/dL [facility] Hct 47.1 40.7 - 50.3 % [facility] Mean Cellular Volume - CAM 88.9 80.0 - 97.6 fL [facility] Mean Cellular Hemoglobin - CAM 30.0 26.7 - 33.7 pg [facility] Mean Cellular Hemoglobin Concentration - CAM 33.8 32.7 - 35.5 g/dL [facility] Rdw 14.4 11.8 - 14.6 % [facility] Plt 202 140 - 440 K/cumm [facility] Mean Platelet Volume - CAM 7.3 6.8 - 10.4 fL [facility] Neutrophil pct 66.0 38.7 - 74.5 % [facility] Lymphocyte pct 21.9 20.0 - 54.3 % [facility] Monos 8.7 4.3 - 13.5 % [facility] Eosinophil pct 2.7 0.0 - 6.0 % [facility] Basophil pct 0.7 0.0 - 3.0 % [facility] Neutrophil abs 4.8 1.8 - 6.6 K/cumm [facility] Lymphocyte abs 1.6 1.2 - 3.3 K/cumm [facility] Monocyte abs 0.6 0.2 - 1.2 K/cumm [facility] Eosinophils, abs 0.2 0.0 - 0.5 K/cumm [facility] Basophil abs 0.1 0.0 - 0.2 K/cumm [facility] NRBC 0.0 0.0 - 0.2 % [facility] NRBC abs 0.00 0.00 - 0.01 K/cumm [facility] Blood specimen (specimen) 08/20/2017 1:58 PM CDT 08/20/2017 2:02 PM CDT Narrative [facility] - 08/20/2017 2:07 PM CDT us Eleanor Ramon MD LAB BLOOD ORDERABLES Final Result Performing Organization Address [facility]/ZIP Co de Phone Number [facility] [place] [address] * Reticulocytes (08/20/2017 1:58 PM CDT) Pathologist [facility] Reticulocyte Count - CAM 1.3 0.5 - 1.8 % [facility] Reticulocyte Count - CAM 0.071 0.020 - 0.087 M/cumm [facility] Blood specimen (specimen) 08/20/2017 1:58 PM CDT 08/20/2017 2:02 PM CDT Narrative [facility] - 08/20/2017 2:07 PM CDT us Eleanor Ramon MD LAB BLOOD ORDERABLES Final Result Performing Organization Address [facility] Co de Phone Number [facility] [place] [place] [address] * Hepatic function panel (08/20/2017 12:00 PM CDT) Pathologist [facility] AST 43 10 - 50 Units/L [facility] Comment:Hemolyzed; result ma y be falsely elevated. ALT 28 7 - 55 Units/L [facility] Alk phos 88 40 - 130 Units/L [facility] Bilirubin, total 0.7 0.1 - 1.2 mg/dL [facility] Bilirubin, direct <0.2 0.1 - 0.3 mg/dL [facility] Protein, pl 7.4 6.5 - 8.5 g/dL [facility] Albumin 4.3 3.5 - 5.0 g/dL [facility] Blood specimen (specimen) 08/20/2017 12:00 PM CDT 08/20/2017 3:20 PM CDT Narrative [facility] - 08/21/2017 10:16 AM CDT us Eleanor Ramon MD LAB BLOOD ORDERABLES Final Result Performing Organization Address [facility] Co de Phone Number [facility] Department [place] [address] * Ferritin (08/20/2017 12:00 PM CDT) Pathologist [facility] Ferritin 325 30 - 400 ng/mL [facility] Blood specimen (specimen) 08/20/2017 12:00 PM CDT 08/20/2017 2:15 PM CDT Narrative [facility] - 08/20/2017 2:59 PM CDT us Eleanor Ramon MD LAB BLOOD ORDERABLES Final Result Performing Organization Address [facility] Co de Phone Number [facility] [place] [address] * Iron profile (08/20/2017 12:00 PM CDT) Pathologist [facility] Iron 123 50 - 150 mcg/dL [facility] UIBC See Comment 112 - 347 mcg/dL [facility] Comment:CRDT; Hemolyzed Spec imen TIBC See Comment 250 - 400 mcg/dL [facility] Comment:CRDT; Hemolyzed Spec imen Transferrin saturation See Comment 20 - 50 % [facility] Comment:CRDT; Hemolyzed Spec imen Blood specimen (specimen) 08/20/2017 12:00 PM CDT 08/20/2017 2:14 PM CDT Narrative [facility] - 08/20/2017 2:53 PM CDT us Eleanor Ramon MD LAB BLOOD ORDERABLES Final Result [facility] Department [place] [address] * CBC with auto differential (07/23/2017 3:36 PM STATION MECHANIC HELPER) WBC 8.7 3.8 - 9.8 K/cumm [facility] RBC 5.58 4.50 - 5.70 M/cumm [facility] Hgb 16.5 13.8 - 17.2 g/dL [facility] Hct 49.6 40.7 - 50.3 % [facility] Mean Cellular Volume - CAM 88.9 80.0 - 97.6 fL [facility] Mean Cellular Hemoglobin - CAM 29.6 26.7 - 33.7 pg [facility] Mean Cellular Hemoglobin Concentration - CAM 33.3 32.7 - 35.5 g/dL [facility] Rdw 14.3 11.8 - 14.6 % [facility] Plt 239 140 - 440 K/cumm [facility] Mean Platelet Volume - CAM 7.5 6.8 - 10.4 fL [facility] Neutrophil pct 65.9 38.7 - 74.5 % [facility] Lymphocyte pct 21.2 20.0 - 54.3 % [facility] Monos 9.5 4.3 - 13.5 % [facility] Eosinophil pct 2.5 0.0 - 6.0 % [facility] Basophil pct 0.9 0.0 - 3.0 % [facility] Neutrophil abs 5.7 1.8 - 6.6 K/cumm [facility] Lymphocyte abs 1.8 1.2 - 3.3 K/cumm [facility] Monocyte abs 0.8 0.2 - 1.2 K/cumm [facility] Eosinophils, abs 0.2 0.0 - 0.5 K/cumm [facility] Basophil abs 0.1 0.0 - 0.2 K/cumm [facility] NRBC 0.0 0.0 - 0.2 % [facility] NRBC abs 0.00 0.00 - 0.01 K/cumm [facility] Blood specimen (specimen) 07/23/2017 3:36 PM STATION MECHANIC HELPER 07/23/2017 3:40 PM STATION MECHANIC HELPER Narrative [facility] - 07/23/2017 3:44 PM STATION MECHANIC HELPER Eleanor Ramon MD LAB BLOOD ORDERABLES Final Result Performing Organization Address [facility] Co de Phone Number [facility] [place] [place] [address] * (ABNORMAL) Reticulocytes (07/23/2017 3:36 PM STATION MECHANIC HELPER) [facility] Reticulocyte Count - CAM 2.0(H) 0.5 - 1.8 % [facility] Reticulocyte Count - CAM 0.111(H) 0.020 - 0.087 M/cumm [facility] Blood specimen (specimen) 07/23/2017 3:36 PM STATION MECHANIC HELPER 07/23/2017 3:40 PM STATION MECHANIC HELPER Narrative [facility] - 07/23/2017 3:44 PM STATION MECHANIC HELPER Eleanor Ramon MD LAB BLOOD ORDERABLES Final Result Performing Organization Address [facility] [place] [address] * Ferritin (07/23/2017 3:30 PM STATION MECHANIC HELPER) Pathologist [facility] Ferritin 34 30 - 400 ng/mL [facility] Blood specimen (specimen) 07/23/2017 3:30 PM STATION MECHANIC HELPER 07/23/2017 3:48 PM STATION MECHANIC HELPER Narrative [facility] - 07/23/2017 4:40 PM STATION MECHANIC HELPER Eleanor Ramon MD LAB BLOOD ORDERABLES Final Result Performing Organization Address City/[facility] Co de Phone Number [facility] [place] [place] [address] * (ABNORMAL) Iron profile (07/23/2017 3:30 PM STATION MECHANIC HELPER) Iron 63 50 - 150 mcg/dL [facility] UIBC 275 112 - 347 mcg/dL [facility] TIBC 338 250 - 400 mcg/dL [facility] Transferrin saturation 19(L) 20 - 50 % [facility] Blood specimen (specimen) 07/23/2017 3:30 PM STATION MECHANIC HELPER 07/23/2017 3:47 PM STATION MECHANIC HELPER Narrative [facility] - 07/23/2017 4:29 PM STATION MECHANIC HELPER us Eleanor Ramon MD LAB BLOOD ORDERABLES Final Result [facility] Department [place] [address] * DISCHARGE LABORATORY CUMULATIVE REPORT (06/18/2017 12:00 AM STATION MECHANIC HELPER) Narrative 06/18/2017 12:00 AM STATION MECHANIC HELPER Ordered by an unspecified provider. Historical Provider LAB BLOOD ORDERABLES Ibeth l Result documented in this encounter Visit Diagnoses Not on filedocumented in this encounter Care Teams Isobutylene Operator Chief Relationship Specialty Start Date End Date Luis Maya MD [address] [place] [address] PCP - General 07/23/16 03/17/19 documented as of this encounter
--- OUTSIDE RECORDS SUMMARY | 2024-05-18 22:17 | XMS_ITS | Encounter Summary ---
Author Organization [facility] Healthcare Address [address] [place] [address] Care Team Providers Care Solid Waste Management Engineer Name Role Phone Unavailable Primary Care Provider Unavailabl e Encounter Details Date Type Department Care Team (Late st Contact Info) Description 06/15/2016 3:36 PM WAISTBAND SETTER LOCKSTITCH - 06/15/2016 11:59 PM WAISTBAND SETTER LOCKSTITCH Hospital Encounter [facility] OP INTERIM [phone] Roxanna Valenzuela MD [address] [facility] [address] [place] [address] Discharge Disposition: Discharge to home or self care Social History Tobacco Use Types Packs/Day Years Used Date Smoking Tobacco: Never Assessed Sex and Gender Information Value Date Recorded Sex Assigned at Not on file Legal Sex Male 1:20 AM WAISTBAND SETTER LOCKSTITCH Gender Identity Not on file Sexual Orientation Not on file documented as of this encounter Medications at Time of Discharge adalimumab (HUMIRA PEN) 40 mg/0.8 mL pen injector kit INJECT THE CONTENTS OF ONE PEN (40 MG) SUBCUTANEOUSLY EVERY 14 DAYS (safety labs due every 3 months Due 11/2017) 05/02/2016 8 documented as of this encounter Discharge Disposition Disposition Code Departure Means Destination Discharge to home or self care documented in this encounter Plan of Treatment Upcoming Encounters Date Type Department Care Team (Late st Contact Info) Description 05/22/2024 10:45 AM WAISTBAND SETTER LOCKSTITCH Hospital Encounter [facility] Endoscopy [address] [place] [address] Nikolay Boucher MD [address] [place] [address] 05/22/2024 10:45 AM WAISTBAND SETTER LOCKSTITCH - 05/22/2024 11:15 AM WAISTBAND SETTER LOCKSTITCH Surgery [facility] Endoscopy [address] [place] [address] Nikolay Boucher MD [address] [place] [address] EGD Scheduled Procedures Name Priority Associated Diagnoses Date/Ti de ESOPHAGOGASTRODUODENOSCOPY Crohn's disease of both small and large intestine with intestinal obstruction (HCC) 05/22/2024 10:45 AM WAISTBAND SETTER LOCKSTITCH documented as of this encounter Visit Diagnoses Not on filedocumented in this encounter
--- OUTSIDE RECORDS SUMMARY | 2024-05-18 22:17 | XMS_ITS | Encounter Summary ---
Author Organization [facility] Address [address] [place] [address] Phone Care Team Providers Care Keno Clerk Name Role Phone Luis Maya MD Primary Care Provider [phone] Encounter Details Date Type Department Care Team (Late st Contact Info) Description 08/19/2018 Orders Only [facility] Gastroenterology [address] [facility] 8th [place] [address] [place] [address] Nya Hand RN Social History Tobacco Use Types Packs/Day Years Used Date Smoking Tobacco: Never Smokeless Tobacco: Never Sex and Gender Information Value Date Recorded Sex Assigned at Not on file Legal Sex Male 1:20 AM MERCHANDISER SEASONAL Gender Identity Not on file Sexual Orientation Not on file documented as of this encounter Ordered Prescriptions Prescription Sig Dispense Quantity Refills Last Filled Start Date End Date adalimumab 40 mg/0.4 mL pen injector kit Inject 1 pen under the skin every 14 (fourteen) days SAFETY LABS REQUIRED EVERY 3 MONTHS FOR REFILLS DUE 10/2018 2 kit 5 08/19/2018 9 documented in this encounter Plan of Treatment Upcoming Encounters Date Type Department Care Team (Late st Contact Info) Description 05/22/2024 10:45 AM MERCHANDISER SEASONAL Hospital Encounter [facility] Endoscopy [address] [place] [address] Nikolay Buocher MD [address] [place] [address] 05/22/2024 10:45 AM MERCHANDISER SEASONAL - 05/22/2024 11:15 AM MERCHANDISER SEASONAL Surgery [facility] Endoscopy [address] [address] Nikolay Boucher MD [address] [place] [address] EGD Scheduled Procedures Name Priority Associated Diagnoses Date/Ti nv ESOPHAGOGASTRODUODENOSCOPY Crohn's disease of both small and large intestine with intestinal obstruction (HCC) 05/22/2024 10:45 AM MERCHANDISER SEASONAL documented as of this encounter Visit Diagnoses Not on filedocumented in this encounter Discontinued Medications Medication Sig Discontinue Reason Start Date End Da te adalimumab 40 mg/0.4 mL pen injector kit Inject 1 pen under the skin every 14 (fourteen) days. ,SAFETY LABS REQUIRED EVERY 3 MONTHS FOR MED REFILLS DUE NEXT 09/2018 Reorder 07/16/2018 08/19/2018 documented as of this encounter Care Teams Keno Clerk Relationship Specialty Start Date End Date Luis Maya MD [address] [place] [address] PCP - General 07/23/16 03/17/19 documented as of this encounter
--- OUTSIDE RECORDS SUMMARY | 2024-05-18 22:17 | XMS_ITS | Encounter Summary ---
Author Organization [facility] Address [address] [place] [address] Phone Care Team Providers Care Food Technologist Name Role Phone Luis Maya MD Primary Care Provider [phone] Encounter Details Date Type Department Care Team (Late st Contact Info) Description 06/30/2018 Orders Only [facility] Gastroenterology [address] [facility] 8th [place] [address] [place] [address] Nya Hand RN Social History Tobacco Use Types Packs/Day Years Used Date Smoking Tobacco: Never Smokeless Tobacco: Never Sex and Gender Information Value Date Recorded Sex Assigned at Not on file Legal Sex Male 1:20 AM AIR TABLE OPERATOR Gender Identity Not on file Sexual Orientation Not on file documented as of this encounter Ordered Prescriptions Prescription Sig Dispense Quantity Refills Last Filled Start Date End Date adalimumab 40 mg/0.4 mL pen injector kit Inject 1 pen under the skin every 14 (fourteen) days. ,SAFETY LABS REQUIRED EVERY 3 MONTHS FOR MED REFILLS DUE NEXT 09/2018 2 kit 5 06/30/2018 9 nystatin 100,000 unit/mL suspension Take 5 ml PO 2 times daily,swish and swallow for 7 days 70 mL 1 06/30/2018 9 documented in this encounter Plan of Treatment Upcoming Encounters Date Type Department Care Team (Late st Contact Info) Description 05/22/2024 10:45 AM AIR TABLE OPERATOR Hospital Encounter [facility] Endoscopy [address] [place] [address] Nikolay Boucher MD [address] [place] [address] 05/22/2024 10:45 AM AIR TABLE OPERATOR - 05/22/2024 11:15 AM AIR TABLE OPERATOR Surgery [facility] Endoscopy [address] [place] [address] Nikolay Boucher MD [address] [place] [address] EGD Scheduled Procedures Name Priority Associated Diagnoses Date/Ti me ESOPHAGOGASTRODUODENOSCOPY Crohn's disease of both small and large intestine with intestinal obstruction (HCC) 05/22/2024 10:45 AM AIR TABLE OPERATOR documented as of this encounter Visit Diagnoses Not on filedocumented in this encounter Discontinued Medications Medication Sig Discontinue Reason Start Date End Da te adalimumab (HUMIRA PEN) 40 mg/0.8 mL pen injector kit Inject 0.8 mL (40 mg total) under the skin every 14 (fourteen) days. Safety labs due DEACON Need by End of 01/2018 Duplicate order 01/24/2018 06/30/2018 documented as of this encounter Care Teams Food Technologist Relationship Specialty Start Date End Date Luis Maya MD [facility] [place] [address] PCP - General 07/23/16 03/17/19 documented as of this encounter
--- OUTSIDE RECORDS SUMMARY | 2024-05-18 22:17 | XMS_ITS | Encounter Summary ---
Author Organization [facility] Address [address] [place] [address] Phone Care Team Providers Care Steel Floor Pan Placing Supervisor Name Role Phone Luis Maya MD Primary Care Provider [phone] Encounter Details Date Type Department Care Team (Late st Contact Info) Description 01/19/2019 Orders Only [facility] Gastroenterology [address] [facility] Advanced Medicine 8th [place] [address] [place] [address] Nya Hand, GUEVARA Crohn's disease of small and large intestines with complication (CMS/HCC) (Primary Dx); Abdominal spasms Social History Tobacco Use Types Packs/Day Years Used Date Smoking Tobacco: Never Smokeless Tobacco: Never Sex and Gender Information Value Date Recorded Sex Assigned at Not on file Legal Sex Male 1:20 AM DEVELOPMENT PROFESSIONAL Gender Identity Not on file Sexual Orientation Not on file documented as of this encounter Ordered Prescriptions Prescription Sig Dispense Quantity Refills Last Filled Start Date End Date hyoscyamine (LEVSIN) 0.125 mg tabletIndications: Urinary Incontinence Take 1 tab PO every 6 hours as needed for spasms 120 tablet 5 01/19/2019 01/22/2019 documented in this encounter Plan of Treatment Upcoming Encounters Date Type Department Care Team (Late st Contact Info) Description 05/22/2024 10:45 AM DEVELOPMENT PROFESSIONAL Hospital Encounter [facility] Endoscopy [address] [address] Nikolay Boucher MD [address] [place] [address] 05/22/2024 10:45 AM DEVELOPMENT PROFESSIONAL - 05/22/2024 11:15 AM DEVELOPMENT PROFESSIONAL Surgery [facility] Endoscopy [address] [address] Nikolay Boucher MD [address] [place] [address] EGD Scheduled Procedures Name Priority Associated Diagnoses Date/Ti me ESOPHAGOGASTRODUODENOSCOPY Crohn's disease of both small and large intestine with intestinal obstruction (HCC) 05/22/2024 10:45 AM DEVELOPMENT PROFESSIONAL documented as of this encounter Visit Diagnoses Diagnosis Crohn's disease of small and large intestines with complication (HCC)- Primary Abdominal spasms Crohn's disease of both small and large intestine with intestinal obstruction (HCC) documented in this encounter Discontinued Medications Medication Sig Discontinue Reason Start Date End Da te hyoscyamine (LEVSIN) 0.125 mg tabletIndications:Urinary Incontinence Take 1 tab PO every 6 hours as needed for spasms Reorder 07/22/2018 01/19/2019 documented as of this encounter Care Teams Steel Floor Pan Placing Supervisor Relationship Specialty Start Date End Date Luis Maya MD [address] [place] [address] PCP - General 07/23/16 03/17/19 documented as of this encounter
--- OUTSIDE RECORDS SUMMARY | 2024-05-18 22:17 | XMS_ITS | Encounter Summary ---
Author Organization [facility] Healthcare Address [address] [place] [address] Care Team Providers Care Real Estate Recruiter Name Role Phone Luis Maya MD Primary Care Provider [phone] Encounter Details Date Type Department Care Team (Late st Contact Info) Description 06/11/2017 11:51 AM LOGISTICS VICE PRESIDENT - 06/11/2017 11:59 PM [facility] Hospital Encounter [facility] OP INTERIM [phone] Roxanna Valenzuela MD [address] [facility] [address] [place], [place] [id number] Discharge Disposition: Discharge to home or self care Social History Tobacco Use Types Packs/Day Years Used Date Smoking Tobacco: Never Assessed Sex and Gender Information Value Date Recorded Sex Assigned at Not on file Legal Sex Male 1:20 AM LOGISTICS VICE PRESIDENT Gender Identity Not on file [...] months Due 11/2017) 05/02/2016 8 vit A-vit F-rtom-vxgzokri 15 mg lozenge Take 1 tablet by mouth as needed 10/12/2016 2 documented as of this encounter Discharge Disposition Disposition Code Departure Means Destination Discharge to home or self care documented in this encounter Plan of Treatment Upcoming Encounters Date Type Department Care Team (Late st Contact Info) Description 05/22/2024 10:45 AM LOGISTICS VICE PRESIDENT Hospital Encounter [facility] Endoscopy [address] [place] [address] Nikolay Boucher MD [address] [place] [address] 05/22/2024 10:45 AM LOGISTICS VICE PRESIDENT - 05/22/2024 11:15 AM LOGISTICS VICE PRESIDENT Surgery [facility] Endoscopy [address] [place] [address] Nikolay Boucher MD [address] [place] [address] EGD Scheduled Procedures Name Priority Associated Diagnoses Date/Ti me ESOPHAGOGASTRODUODENOSCOPY Crohn's disease of both small and large intestine with intestinal obstruction (HCC) 05/22/2024 10:45 AM LOGISTICS VICE PRESIDENT documented as of this encounter Procedures Procedure Name Priority Date/Time Associated Diagnosis Comments DIFFERENTIAL AUTO Routine Gen Lab 06/11/2017 12: 05 PM LOGISTICS VICE PRESIDENT CBC WITH AUTO DIFFERENTIAL Routine Gen Lab 06/11/2017 12:05 PM LOGISTICS VICE PRESIDENT HEPATIC FUNCTION PANEL Routine Gen Lab 06/11/2017 12:05 PM LOGISTICS VICE PRESIDENT DISCHARGE LABORATORY CUMULATIVE REPORT 06/11/2017 12:00 AM LOGISTICS VICE PRESIDENT documented in this encounter Results * Hepatic function panel (06/11/2017 12:05 PM LOGISTICS VICE PRESIDENT) AST 38 10 - 50 Units/L [facility] ALT 36 7 - 55 Units/L [facility] Alk phos 79 40 - 130 Units/L [facility] Bilirubin, total 1.0 0.1 - 1.2 mg/dL [facility] Bilirubin, direct 0.2 0.1 - 0.3 mg/dL [facility] Protein, pl 7.4 6.5 - 8.5 g/dL [facility] Albumin 4.4 3.5 - 5.0 g/dL [facility] Blood specimen (specimen) 06/11/2017 12:05 PM LOGISTICS VICE PRESIDENT 06/11/2017 1:21 PM LOGISTICS VICE PRESIDENT Narrative [facility] - 06/11/2017 1:47 PM LOGISTICS VICE PRESIDENT Roxanna Valenzuela MD LAB BLOOD ORDERABLE S Final Result [facility] Department [place] [address] * Differential, auto (06/11/2017 12:05 PM LOGISTICS VICE PRESIDENT) Neutrophil pct 62.4 % [facility] Imm gran pct 0.5 % [facility] Lymphocyte pct 24.2 % [facility] Monocyte pct 9.0 % [facility] Eosinophil pct 3.2 % [facility] Basophil pct 0.7 % [facility] Neutrophil abs 5.00 1.70 - 6.50 K/cumm [facility] Imm gran abs 0.04 0.00 - 0.10 K/cumm [facility] Lymphocyte abs 1.94 0.80 - 3.30 K/cumm [facility] Monocyte abs 0.72 0.20 - 0.80 K/cumm [facility] Eosinophil abs 0.26 0.00 - 0.50 K/cumm [facility] Basophil abs 0.06 0.00 - 0.10 K/cumm [facility] Blood specimen (specimen) 06/11/2017 12:05 PM LOGISTICS VICE PRESIDENT 06/11/2017 1:21 PM LOGISTICS VICE PRESIDENT Narrative [facility] - 06/11/2017 1:30 PM LOGISTICS VICE PRESIDENT Roxanna Valenzuela MD LAB BLOOD ORDERABLE S Final Result [facility] Department [place] [address] * CBC with auto differential (06/11/2017 12:05 PM LOGISTICS VICE PRESIDENT) [facility] WBC 8.02 3.80 - 9.90 K/cumm [facility] RBC 5.51 4.30 - 5.80 M/cumm [facility] Hgb 16.1 13.0 - 17.5 g/dL [facility] Hct 48.3 38.9 - 50.3 % [facility] MCV 87.7 81.3 - 96.4 fL [facility] MCH 29.2 27.1 - 33.3 pg [facility] MCHC 33.3 32.3 - 35.7 g/dL [facility] RDW CV 14.0 11.1 - 14.9 % [facility] RDW SD 44.7 35.7 - 48.1 fL [facility] Plt 218 150 - 400 K/cumm [facility] MPV 10.0 9.1 - 12.3 fL [facility] NRBC 0.0 0.0 - 0.2 % [facility] NRBC abs 0.00 0.00 - 0.01 K/cumm [facility] Blood specimen (specimen) 06/11/2017 12:05 PM LOGISTICS VICE PRESIDENT 06/11/2017 1:21 PM LOGISTICS VICE PRESIDENT Narrative [facility] - 06/11/2017 1:30 PM LOGISTICS VICE PRESIDENT us Roxanna Valenzuela MD LAB BLOOD ORDERABLE S Final Result Performing Organization Address City/[facility]/ZIP Co de Phone Number [facility] Department [place] [address] * DISCHARGE LABORATORY CUMULATIVE REPORT (06/11/2017 12:00 AM LOGISTICS VICE PRESIDENT) Narrative 06/11/2017 12:00 AM LOGISTICS VICE PRESIDENT Ordered by an unspecified provider. us Historical Provider LAB BLOOD ORDERABLES Ibeth l Result documented in this encounter Visit Diagnoses Not on filedocumented in this encounter Care Teams Real Estate Recruiter Relationship Specialty Start Date End Date Luis Maya MD [facility] [place] [address] PCP - General 07/23/16 03/17/19 documented as of this encounter
--- OUTSIDE RECORDS SUMMARY | 2024-05-18 22:17 | XMS_ITS | Encounter Summary ---
Author Organization [facility] Address [address] [place] [address] Phone Care Team Providers Care Can Line Operator Name Role Phone Luis Maya MD Primary Care Provider [phone] Encounter Details Date Type Department Care Team (Late st Contact Info) Description 07/15/2018 Orders Only [facility] Gastroenterology [address] [facility] [address] [place] [phone] Roxanna Valenzuela MD [address] [place] [address] Social History Tobacco Use Types Packs/Day Years Used Date Smoking Tobacco: Never Smokeless Tobacco: Never Sex and Gender Information Value Date Recorded Sex Assigned at Not on file Legal Sex Male 1:20 AM NETWORK DESKTOP SUPPORT SPECIALIST Gender Identity Not on file Sexual Orientation Not on file documented as of this encounter Plan of Treatment Upcoming Encounters Date Type Department Care Team (Late st Contact Info) Description 05/22/2024 10:45 AM NETWORK DESKTOP SUPPORT SPECIALIST Hospital Encounter [facility] Endoscopy [address] [place] [address] Nikolay Boucher MD [address] [place] [address] 05/22/2024 10:45 AM NETWORK DESKTOP SUPPORT SPECIALIST - 05/22/2024 11:15 AM NETWORK DESKTOP SUPPORT SPECIALIST Surgery [facility] Endoscopy [address] [address] Nikolay Boucher MD [address] [place] [address] EGD Scheduled Procedures Name Priority Associated Diagnoses Date/Ti me ESOPHAGOGASTRODUODENOSCOPY Crohn's disease of both small and large intestine with intestinal obstruction (HCC) 05/22/2024 10:45 AM NETWORK DESKTOP SUPPORT SPECIALIST documented as of this encounter Procedures Procedure Name Priority Date/Time Associated Diagnosis Comments SPECIMEN STATUS REPORT Routine 07/15/2018 3:32 PM NETWORK DESKTOP SUPPORT SPECIALIST HEPATIC FUNCTION PANEL Routine 07/15/2018 3:32 PM NETWORK DESKTOP SUPPORT SPECIALIST documented in this encounter Results * Specimen Status Report (07/15/2018 3:32 PM NETWORK DESKTOP SUPPORT SPECIALIST) Specimen Status Report Comment [facility] - 01 Comment: Jaswinder Abbrev HFP7 Default Ambig Abbrev HFP7 Default A hand-written panel/profile was received from your office. In accordance with the [facility] Ambiguous Test Code Policy dated November 2002, we have completed your order by using the closest currently or formerly recognized AMA panel. ??We have assigned Hepatic Function Panel (7), Test Code #195796 to this request. ??If this is not the testing you wished to receive on this specimen, please contact the [facility] Client Inquiry/Technical Services Department to clarify the test order. ??We appreciate your business. 07/15/2018 3:32 PM NETWORK DESKTOP SUPPORT SPECIALIST 07/15/2018 Narrative [facility] - 07/16/2018 8:47 AM NETWORK DESKTOP SUPPORT SPECIALIST Performed at: ??01 - [address] ??[id number] Juvenile Justice Officer: Matthew Luna PhD, Phone: ??[phone] us Roxanna Valenzuela MD LAB BLOOD ORDERABLE S Final Result [facility] - 01 * (ABNORMAL) Hepatic function panel (07/15/2018 3:32 PM NETWORK DESKTOP SUPPORT SPECIALIST) Protein, sr 7.3 6.0 - 8.5 g/dL [facility] - 01 Albumin 4.5 3.5 - 5.5 g/dL [facility] - 01 Bilirubin, Total 0.7 0.0 - 1.2 mg/dL [facility] - 01 Bilirubin, direct 0.23 0.00 - 0.40 mg/dL [facility] - 01 Alk phos 111 39 - 117 IU/L [facility] - 01 AST 39 0 - 40 IU/L [facility] - 01 ALT 48(H) 0 - 44 IU/L [facility] - 01 07/15/2018 3:32 PM NETWORK DESKTOP SUPPORT SPECIALIST 07/15/2018 Narrative [facility] - 07/16/2018 8:47 AM NETWORK DESKTOP SUPPORT SPECIALIST Performed at: ??01 - [facility] [address] ??[id number] Juvenile Justice Officer: Matthew Luna PhD, Phone: ??[phone] us Roxanna Valenzuela MD LAB BLOOD ORDERABLE S Final Result [facility] - 01 documented in this encounter Visit Diagnoses Not on filedocumented in this encounter Care Teams Can Line Operator Relationship Specialty Start Date End Date Luis Maya MD [address] [place] [address] PCP - General 07/23/16 03/17/19 documented as of this encounter
--- OUTSIDE RECORDS SUMMARY | 2024-05-18 22:17 | XMS_ITS | Encounter Summary ---
Author Organization [facility] Address [address] [place] [address] Phone Care Team Providers Care Environmental Compliance Engineer Name Role Phone Luis Maya MD Primary Care Provider [phone] Encounter Details Date Type Department Care Team (Late st Contact Info) Description 06/30/2018 Telephone [facility] Gastroenterology [address] [facility] Advanced Medicine 8th [place] [address] [place] [address] Roxanna Valenzuela MD [address] [place] [address] Social History Tobacco Use Types Packs/Day Years Used Date Smoking Tobacco: Never Smokeless Tobacco: Never Sex and Gender Information Value Date Recorded Sex Assigned at Not on file Legal Sex Male 1:20 AM LEISURE STUDIES PROFESSOR Gender Identity Not on file Sexual Orientation Not on file documented as of this encounter Miscellaneous Notes * Telephone Encounter - Lanie Lockett MA - 06/30/2018 12:01 PM LEISURE STUDIES PROFESSOR S/w pt and informed of below. Pt verbalized understanding. URE STUDIES PROFESSOR * Telephone Encounter - Nya Hand RN - 06/30/2018 11:23 AM CST Placed nystatin script in chart. Patient should take OTC vitamin B12 1 tab daily for angular chelitis URE STUDIES PROFESSOR * Telephone Encounter - Roxanna Valenzuela MD - 06/30/2018 11:02 AM LEISURE STUDIES PROFESSOR Sure we can call in but angular Chelitis is inflammation on the mouth corners, thrush is a yeast infection in the throat; nystatin will help for thrush but not angular Chelitis URE STUDIES PROFESSOR * Telephone Encounter - Lanie Lockett MA - 06/30/2018 9:55 AM CST Pt called c/o angular cheilitis (yeast in throat) and burning in throat. Pt is asking for Rx Nystatin swish and swallow as you have prescribed this before for him. Pharmacy verified. Please advise. URE STUDIES PROFESSOR documented in this encounter Plan of Treatment Upcoming Encounters Date Type Department Care Team (Late st Contact Info) Description 05/22/2024 10:45 AM LEISURE STUDIES PROFESSOR Hospital Encounter [facility] Endoscopy [address] [address] Nikolay Boucher MD [address] [place] [address] 05/22/2024 10:45 AM LEISURE STUDIES PROFESSOR - 05/22/2024 11:15 AM LEISURE STUDIES PROFESSOR Surgery [facility] Endoscopy [address] [address] Nikolay Boucher MD [address] [place] [address] EGD Scheduled Procedures Name Priority Associated Diagnoses Date/Ti me ESOPHAGOGASTRODUODENOSCOPY Crohn's disease of both small and large intestine with intestinal obstruction (HCC) 05/22/2024 10:45 AM LEISURE STUDIES PROFESSOR documented as of this encounter Visit Diagnoses Not on filedocumented in this encounter Care Teams Environmental Compliance Engineer Relationship Specialty Start Date End Date Luis Maya MD [address] [place] [id number] PCP - General 07/23/16 03/17/19 documented as of this encounter
--- OUTSIDE RECORDS SUMMARY | 2024-05-18 22:17 | XMS_ITS | Encounter Summary ---
Author Organization [facility] Address [address] [place] [address] Phone Care Team Providers Care Car Repossessor Name Role Phone Luis Maya MD Primary Care Provider [phone] Encounter Details Date Type Department Care Team (Late st Contact Info) Description 07/01/2018 Orders Only [facility] Gastroenterology [address] [place] [address] [place] [phone] Nya Hand RN Elevated bilirubin (Primary Dx) Social History Tobacco Use Types Packs/Day Years Used Date Smoking Tobacco: Never Smokeless Tobacco: Never Sex and Gender Information Value Date Recorded Sex Assigned at Not on file Legal Sex Male 1:20 AM ANESTHESIOLOGY RESIDENT Gender Identity Not on file Sexual Orientation Not on file documented as of this encounter Plan of Treatment Upcoming Encounters Date Type Department Care Team (Late st Contact Info) Description 05/22/2024 10:45 AM ANESTHESIOLOGY RESIDENT Hospital Encounter [facility] Endoscopy [address] [address] Nikolay Boucher MD [address] [place] [address] 05/22/2024 10:45 AM ANESTHESIOLOGY RESIDENT - 05/22/2024 11:15 AM ANESTHESIOLOGY RESIDENT Surgery [facility] Endoscopy [address] [address] Nikolay Boucher MD [address] [place] [address] EGD Scheduled Procedures Name Priority Associated Diagnoses Date/Ti me ESOPHAGOGASTRODUODENOSCOPY Crohn's disease of both small and large intestine with intestinal obstruction (HCC) 05/22/2024 10:45 AM ANESTHESIOLOGY RESIDENT documented as of this encounter Visit Diagnoses Diagnosis Elevated bilirubin- Primary Crohn's disease of both small and large intestine with intestinal obstruction (HCC) documented in this encounter Care Teams Car Repossessor Relationship Specialty Start Date End Date Luis Maya MD [address] [place] [address] PCP - General 07/23/16 03/17/19 documented as of this encounter
--- OUTSIDE RECORDS SUMMARY | 2024-05-18 22:17 | XMS_ITS | Encounter Summary ---
Author Organization [facility] Care Team Providers Care Art Gilder Name Role Phone Unavailable Primary Care Provider Unavailabl e Encounter Details Date Type Department Care Team (Late st Contact Info) Description 02/09/2016 6:18 PM CDT - 02/09/2016 11:59 PM T [facility] [address] [place] [address] Crohn's disease of both small and large intestine with complication (CMS/HCC); Iron deficiency anemia due to chronic blood loss; Other watermelon inspector (current) drug therapy Social History Tobacco Use Types Packs/Day Years Used Date Smoking Tobacco: Never Assessed Sex and Gender Information Value Date Recorded Sex Assigned at Not on file Legal Sex Male 1:20 AM WASTE WATER WORKER Gender Identity Not on file Sexual Orientation Not on file documented as of this encounter Plan of Treatment Upcoming Encounters Date Type Department Care Team (Late st Contact Info) Description 05/22/2024 10:45 AM WASTE WATER WORKER Hospital Encounter [facility] Endoscopy [address] [address] Nikolay Boucher MD [address] [place] [address] 05/22/2024 10:45 AM WASTE WATER WORKER - 05/22/2024 11:15 AM WASTE WATER WORKER Surgery [facility] Endoscopy [address] [address] Nikolay Boucher MD [address] [place] [address] EGD Scheduled Procedures Name Priority Associated Diagnoses Date/Ti me ESOPHAGOGASTRODUODENOSCOPY Crohn's disease of both small and large intestine with intestinal obstruction (HCC) 05/22/2024 10:45 AM WASTE WATER WORKER documented as of this encounter Procedures Procedure Name Priority Date/Time Associated Diagnosis Comments PLASMA HEPATIC FUNCTION PANEL Routine 02/09/2016 3:55 PM CDT DISCHARGE LABORATORY CUMULATIVE REPORT 02/09/2016 documented in this encounter Results * Plasma hepatic function panel (02/09/2016 3:55 PM CDT) Protein, pl 7.2 6.5 - 8.5 g/dl [facility] HISTORICAL RESULTS Alb 4.2 3.5 - 5.0 g/dl [facility]R HISTORICAL RESULTS Bilirubin 0.6 0.1 - 1.2 mg/dl [facility] HISTORICAL RESULTS Bilirubin, direct See Comment 0.1 - 0.3 mg/dl [facility] HISTORICAL RESULTS Comment:{CRDT; Hemolyzed spe cimen} Alk phos 78 40 - 130 Units/L [facility] HISTORICAL RESULTS AST 40 10 - 50 Units/L [facility] HISTORICAL RESULTS Comment:{Hemolyzed; result m ay be falsely elevated.} ALT 22 7 - 55 Units/L [facility] HISTORICAL RESULTS Plasma 02/09/2016 3:55 PM CDT us Roxanna Valenzuela MD LAB BLOOD ORDERABLE S Final Result [facility] HISTORICAL RESULTS * DISCHARGE LABORATORY CUMULATIVE REPORT (02/09/2016) Narrative 02/09/2016 Ordered by an unspecified provider. us Historical Provider LAB BLOOD ORDERABLES Ibeth l Result documented in this encounter Visit Diagnoses Diagnosis Crohn's disease of both small and large intestine with complication (HCC) Iron deficiency anemia due to chronic blood loss Iron deficiency anemia secondary to blood loss (chronic) Other senior care (current) drug therapy Crohn's disease of both small and large intestine with intestinal obstruction (HCC) documented in this encounter
--- OUTSIDE RECORDS SUMMARY | 2024-05-18 22:17 | XMS_ITS | Encounter Summary ---
Author Organization [facility] Address [address] [place] [address] Phone Care Team Providers Care Testing And Regulating Chief Name Role Phone Luis Maya MD Primary Care Provider [phone] Encounter Details Date Type Department Care Team (Late st Contact Info) Description 11/20/2017 Orders Only [facility] Gastroenterology [address] [facility] Medical Office [address] [place] [address] Nya Hand RN Crohn's disease of small and large intestines with complication (CMS/HCC) (Primary Dx) Social History Tobacco Use Types Packs/Day Years Used Date Smoking Tobacco: Never Sex and Gender Information Value Date Recorded Sex Assigned at Not on file Legal Sex Male 1:20 AM LOGISTICS ANALYST Gender Identity Not on file Sexual Orientation Not on file documented as of this encounter Plan of Treatment Upcoming Encounters Date Type Department Care Team (Late st Contact Info) Description 05/22/2024 10:45 AM LOGISTICS ANALYST Hospital Encounter [facility] Endoscopy [address] [place] [address] Nikolay Boucher MD [address] [place] [address] 05/22/2024 10:45 AM LOGISTICS ANALYST - 05/22/2024 11:15 AM LOGISTICS ANALYST Surgery [facility] Endoscopy [address] [address] Nikolay Boucher MD [address] [place] [address] EGD Scheduled Procedures Name Priority Associated Diagnoses Date/Ti or ESOPHAGOGASTRODUODENOSCOPY Crohn's disease of both small and large intestine with intestinal obstruction (HCC) 05/22/2024 10:45 AM LOGISTICS ANALYST documented as of this encounter Visit Diagnoses Diagnosis Crohn's disease of small and large intestines with complication (HCC)- Primary Crohn's disease of both small and large intestine with intestinal obstruction (HCC) documented in this encounter Care Teams Testing And Regulating Chief Relationship Specialty Start Date End Date Luis Maya MD [facility] [place] [address] PCP - General 07/23/16 03/17/19 documented as of this encounter
--- OUTSIDE RECORDS SUMMARY | 2024-05-18 22:17 | XMS_ITS | Encounter Summary ---
Author Organization [facility] Address [address] [place] [address] Phone Care Team Providers Care Booking Supervisor Name Role Phone Luis Maya MD Primary Care Provider [phone] Encounter Details Date Type Department Care Team (Late st Contact Info) Description 06/26/[address] [facility] Gastroenterology [address] [facility] Advanced Medicine 8th [place] [address] [place] [id number] Roxanna Valenzuela MD [address] [place] [address] Social History Tobacco Use Types Packs/Day Years Used Date Smoking Tobacco: Never Smokeless Tobacco: Never Sex and Gender Information Value Date Recorded Sex Assigned at Not on file Legal Sex Male 1:20 AM PAPER TUBE CUTTER Gender Identity Not on file Sexual Orientation Not on file documented as of this encounter Miscellaneous Notes * Addendum Note - Mira Perez CLT - 06/30/2018 10:44 AM CSTAddended by: MIRA PEREZ on: 06/30/2018 10:44 AM Modules accepted: Orders R TUBE CUTTER * Telephone Encounter - Lanie Lockett MA - 06/27/2018 2:36 PM CST Pt wanted lab order faxed to work fax and for external lab - not sure if he wants to go to [facility] Pt to fax me his insurance card effective 05/27/2018 and secondary insurance with spouse still valid. R TUBE CUTTER * Telephone Encounter - Lanie Lockett MA - 06/26/2018 11:29 AM PAPER TUBE CUTTER Pt LMOR asking for lab order to be emailed to him. I LMOR stating I cannot e- mail, but I can mail it, fax it, or send it to clinic for fruit picker. He will cb with the best choice for him. Labs waiting for facility, then will send. R TUBE CUTTER documented in this encounter Plan of Treatment Upcoming Encounters Date Type Department Care Team (Late st Contact Info) Description 05/22/2024 10:45 AM PAPER TUBE CUTTER Hospital Encounter [facility] Endoscopy [address] [place] [address] Nikolay Boucher MD [address] [place] [address] 05/22/2024 10:45 AM PAPER TUBE CUTTER - 05/22/2024 11:15 AM PAPER TUBE CUTTER Surgery [facility] Endoscopy [address] [place] [address] Nikolay Boucher MD [address] [place] [address] EGD Scheduled Orders Name Type Priority Associated Diagnoses Orde r Schedule CBC with auto differential Lab Routine Crohn's disease of both small and large intestine without complication (CMS/HCC) every 3 months for 12 Occurrences starting 06/27/2018 until 06/26/2019 Scheduled Procedures Name Priority Associated Diagnoses Date/Ti me ESOPHAGOGASTRODUODENOSCOPY Crohn's disease of both small and large intestine with intestinal obstruction (HCC) 05/22/2024 10:45 AM PAPER TUBE CUTTER documented as of this encounter Visit Diagnoses Diagnosis Crohn's disease of both small and large intestine without complication (CMS/HCC) (HCC)- Primary Crohn's disease of both small and large intestine with intestinal obstruction (HCC) documented in this encounter Care Teams Booking Supervisor Relationship Specialty Start Date End Date Luis Maya MD [address] [place] [address] PCP - General 07/23/16 03/17/19 documented as of this encounter
--- OUTSIDE RECORDS SUMMARY | 2024-05-18 22:17 | XMS_ITS | Encounter Summary ---
Author Organization [facility] Address [address] [place] [address] Phone Care Team Providers Care Plumber'S Helper Name Role Phone Luis Maya MD Primary Care Provider [phone] Encounter Details Date Type Department Care Team (Late st Contact Info) Description 07/22/2018 Orders Only [facility] Gastroenterology [address] 8th [place] [address] [place] [address] Nya Hand RN Social History Tobacco Use Types Packs/Day Years Used Date Smoking Tobacco: Never Smokeless Tobacco: Never Sex and Gender Information Value Date Recorded Sex Assigned at Not on file Legal Sex Male 1:20 AM BLEACHER SULFITE PULP Gender Identity Not on file Sexual Orientation Not on file documented as of this encounter Ordered Prescriptions Prescription Sig Dispense Quantity Refills Last Filled Start Date End Date hyoscyamine (LEVSIN) 0.125 mg tabletIndications: Urinary Incontinence Take 1 tab PO every 6 hours as needed for spasms 120 tablet 5 07/22/2018 01/19/2019 documented in this encounter Plan of Treatment Upcoming Encounters Date Type Department Care Team (Late st Contact Info) Description 05/22/2024 10:45 AM BLEACHER SULFITE PULP Hospital Encounter [facility] Endoscopy [address] [place] [address] Nikolay Boucher MD [address] [place] [address] 05/22/2024 10:45 AM BLEACHER SULFITE PULP - 05/22/2024 11:15 AM BLEACHER SULFITE PULP Surgery [facility] Endoscopy [address] [address] Nikolay Boucher MD [address] [place] [address] EGD Scheduled Procedures Name Priority Associated Diagnoses Date/Ti me ESOPHAGOGASTRODUODENOSCOPY Crohn's disease of both small and large intestine with intestinal obstruction (HCC) 05/22/2024 10:45 AM BLEACHER SULFITE PULP documented as of this encounter Visit Diagnoses Not on filedocumented in this encounter Discontinued Medications Medication Sig Discontinue Reason Start Date End Da te hyoscyamine (LEVSIN) 0.125 mg tabletIndications:Urinary Incontinence TK 1 T PO Q 6 H PRF ABD SPASMS Reorder 12/05/2017 07/22/2018 documented as of this encounter Care Teams Plumber'S Helper Relationship Specialty Start Date End Date Luis Maya MD [address] [place] [address] PCP - General 07/23/16 03/17/19 documented as of this encounter
--- OUTSIDE RECORDS SUMMARY | 2024-05-18 22:17 | XMS_ITS | Encounter Summary ---
Author Organization [facility] Address [address] [place] [address] Care Team Providers Care Toolmaker Helper Name Role Phone Luis Maya MD Primary Care Provider [phone] Encounter Details Date Type Department Care Team (Late st Contact Info) Description 03/18/2017 8:00 AM CDT - 03/18/2017 10:30 AM CDT Hospital Encounter [facility] OP INTERIM [phone] Roxanna Valenzuela MD [address] [facility] [address] [place], [place] [id number] Discharge Disposition: Discharge to home or self care Social History Tobacco Use Types Packs/Day Years Used Date Smoking Tobacco: Never Assessed Sex and Gender Information Value Date Recorded Sex Assigned at Not on file Legal 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 Gender Identity Not on file [...] due every 3 months Due 11/2017) 05/02/2016 08/31/201 8 vit A-vit [id number] 15 mg lozenge Take 1 tablet by mouth as needed 10/12/2016 2 documented as of this encounter Discharge Disposition Disposition Code Departure Means Destination Discharge to home or self care documented in this encounter Plan of Treatment Upcoming Encounters Date Type Department Care Team (Late st Contact Info) Description 05/22/2024 10:45 AM SQUARING MACHINE OPERATOR Hospital Encounter [facility] Endoscopy [address] [place] [address] Nikolay Boucher MD [address] [place] [address] 05/22/2024 10:45 AM SQUARING MACHINE OPERATOR - 05/22/2024 11:15 AM SQUARING MACHINE OPERATOR Surgery [facility] Endoscopy [address] [place] [address] Nikolay Boucher MD [address] [place] [address] EGD Scheduled Procedures Name Priority Associated Diagnoses Date/Ti me ESOPHAGOGASTRODUODENOSCOPY Crohn's disease of both small and large intestine with intestinal obstruction (HCC) 05/22/2024 10:45 AM SQUARING MACHINE OPERATOR documented as of this encounter Procedures Procedure Name Priority Date/Time Associated Diagnosis Comments SURGICAL PATHOLOGY Routine 03/18/2017 9: 30 AM CDT COLONOSCOPY REPORT 03/18/2017 SURGICAL PATHOLOGY 03/18/2017 12 :00 AM CDT documented in this encounter Results * Surgical pathology (03/18/2017 9:30 AM CDT) 03/18/2017 9:30 AM CDT 03/18/2017 11:58 AM CDT Narrative 03/19/2017 11:45 PM CDT [facility] [place] [address] SURGICAL PATHOLOGY REPORT FINAL Patient Name: MELLO HERBERT ? Address: [address] ??Service: ??Gastroenterology ??LEIGHA, SHASHI ??[id number] ??Location: ??[facility] Taken: 03/18/2017 Gender: M ?? Received: 03/18/2017 : 1965 (Age: 51) Hospital #: ??[id number] Accessioned: 03/18/2017 ?Patient Type: ??[facility] SDS Reported: 03/19/2017 ? Physician(s): Janis Catalan M.D. ? Diagnosis: A. ??Large intestine, transverse colon, biopsy ? - No histopathologic abnormality - No acute colitis, chronic colitis, or microscopic colitis - No granulomas or dysplasia B. ??Large intestine, descending colon, biopsy ? - Focally active chronic colitis with single crypt abscess and mucosal disarray - No granulomas or dysplasia A. ??Large intestine, rectosigmoid colon, biopsy ? - No histopathologic abnormality - No acute colitis, chronic colitis, or microscopic colitis - No granulomas or dysplasia [facility]/03/19/2017 14:07 By this signature, I attest that the above diagnosis is based upon my personal examination of the slides(and/or other material indicated in the diagnosis). ?? Kelvin Holland MD ??Report Electronically Reviewed and Signed Out By ??Kelvin Holland MD 03/19/2017 23:45:09 Microscopic Description and Comment: Microscopic examination substantiates the above cited diagnosis. ?Dashawn Fregoso MD PhD ?History: The patient is a 51-year-old man presents for high risk colon cancer surveillance, due to Crohn's disease of eight or more years duration, on Humira 40, Q14d. ??Operative procedure and findings: Colonoscopy: Normal mucosa in the transverse colon, normal mucosa in the descending colon, normal mucosa in the rectosigmoid colon. Specimen(s) Received: A: Transverse colon B: Descending colon C: Rectosigmoid colon Gross Description: The specimen is received in three formalin filled container, each labeled with Mello Herbert. ??The first container is labeled transverse colon and consists of multiple pieces of mulligan-pink soft tissue, ranging in size from 0.2 x 0.2 x 0.1 cm to 0.1 x 0.1 x 0.1 cm. ??Labeled A1. ??Jar 0. The second specimen container is labeled descending colon and consists of multiple pieces of mulligan-pink soft tissue, ranging in size from 0.4 x 0.1 x 0.1 cm to 0.1 x 0.1 x 0.1 cm. ??Labeled B1. ??Jar 0. The third specimen container is labeled rectosigmoid colon and consists of multiple pieces of mulligan-pink soft tissue, ranging in size from 0.7 x 0.2 x 0.1 cm to 0.1 x 0.1 x 0.1 cm. ??Labeled C1. ??Jar 0. 03/18/2017 13:29 ?Hugo Marquez MS, POLLO(ASCP) ? By this signature, I attest that the above diagnosis is based upon my personal examination of the slides(and/or other material). ?? Surgical Pathology report is available electronically in Clinical Desktop. The performance characteristics of some immunohistochemical stains, fluorescence in-situ hybridization tests and immunophenotyping by flow cytometry cited in this report (if any) were determined by the Surgical Pathology Department at [facility] as part of an ongoing quality systems engineer program and in compliance with federally mandated [...] performance characteristics determined by the Surgical Pathology Department of [facility]. ??It has not been cleared or approved by the U. S. Food and Drug Administration. Roxanna Valenzuela MD LAB PATHOLOGY ORDER [place] Final Result * SURGICAL PATHOLOGY (03/18/2017 12:00 AM CDT) Narrative 03/18/2017 12:00 AM CDT Ordered by an unspecified provider. Historical Provider LAB PATHOLOGY ORDERABLES Final Result * COLONOSCOPY REPORT (03/18/2017) Anatomical Region Laterality Modality Other Provider Scanning GI PROCEDURE ORDERABLES Final Result documented in this encounter Visit Diagnoses Not on filedocumented in this encounter Care Teams Toolmaker Helper Relationship Specialty Start Date End Date Luis Maya MD [address] [place] [address] PCP - General 07/23/16 03/17/19 documented as of this encounter
--- OUTSIDE RECORDS SUMMARY | 2024-05-18 22:17 | XMS_ITS | Encounter Summary ---
Author Organization [facility] Address [address] [place] [address] Phone Care Team Providers Care Unit Control Clerk Name Role Phone Luis Maya MD Primary Care Provider [phone] Reason for Visit * Oncology (Routine) - Closed Specialty Diagnoses / Procedures Referred By Contac t Referred To Contact Lab Diagnoses Iron deficiency anemia due to chronic blood loss Erythrocytosis Procedures ONCBCN LAB APPOINTMENT ARM DRAW Eleanor Ramon MD Phone: tel: fax: [facility] Oncology [address] [facility] Medicine 7th [place] [address] [place] [address] Phone: tel: Referral ID Status Reason Start Date Expiration Date Visits Re quested Visits Authorized [id number] Closed 05/15/2018 11/24/2019 99 99 Encounter Details Date Type Department Care Team (Late st Contact Info) Description 02/17/2019 2:00 PM CDT Lab [facility] Oncology [address] [facility] Advanced Medicine 7th [place] [address] [place] [address] Eleanor Ramon MD [address] [place] [address] Iron deficiency anemia due to chronic blood loss; Vitamin B12 deficiency; Crohn's disease of both small and large intestine without complication (CMS/HCC) Discharge Disposition: Discharge to home or self care Social History Tobacco Use Types Packs/Day Years Used Date Smoking Tobacco: Never Smokeless Tobacco: Never Sex and Gender Information Value Date Recorded Sex Assigned at Not on file 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 Gender Identity Not on file Sexual Orientation Not on file documented as of this encounter Discharge Disposition Disposition Code Departure Means Destination Discharge to home or self care documented in this encounter Plan of Treatment Upcoming Encounters Date Type Department Care Team (Late st Contact Info) Description 05/22/2024 10:45 AM WATERPROOF COATING MACHINE TENDER Hospital Encounter [facility] Endoscopy [address] [place] [address] Nikolay Boucher MD [address] [place] [address] 05/22/2024 10:45 AM WATERPROOF COATING MACHINE TENDER - 05/22/2024 11:15 AM WATERPROOF COATING MACHINE TENDER Surgery [facility] Endoscopy [address] [place] [address] Nikolay Boucher MD [address] [place] [address] EGD Scheduled Procedures Name Priority Associated Diagnoses Date/Ti me ESOPHAGOGASTRODUODENOSCOPY Crohn's disease of both small and large intestine with intestinal obstruction (HCC) 05/22/2024 10:45 AM WATERPROOF COATING MACHINE TENDER documented as of this encounter Procedures Procedure Name Priority Date/Time Associated Diagnosis Comments IRON PROFILE W/ IBC Routine 02/17/2019 2 :06 PM CDT Iron deficiency anemia due to chronic blood loss Vitamin B12 deficiency FERRITIN Routine 02/17/2019 2:06 PM CDT Iron deficiency anemia due to chronic blood loss Vitamin B12 deficiency VITAMIN B12 Routine 02/17/2019 2:06 PM CDT Iron deficiency anemia due to chronic blood loss Vitamin B12 deficiency HEPATIC FUNCTION PANEL Routine 02/17/2019 2:06 PM CDT Crohn's disease of both small and large intestine without complication (CMS/HCC) DIFFERENTIAL AUTO Routine 02/17/2019 2:0 2 PM CDT Iron deficiency anemia due to chronic blood loss Vitamin B12 deficiency CBC WITH AUTO DIFFERENTIAL Routine 02/17/2019 2:02 PM CDT Iron deficiency anemia due to chronic blood loss Vitamin B12 deficiency RETICULOCYTES Routine 02/17/2019 2:02 PM CDT Iron deficiency anemia due to chronic blood loss Vitamin B12 deficiency documented in this encounter Results * Hepatic function panel (02/17/2019 2:06 PM CDT) Bilirubin, total 0.7 0.1 - 1.2 mg/dL [facility] Bilirubin, direct 0.2 0.1 - 0.3 mg/dL [facility] Protein, pl 7.7 6.5 - 8.5 g/dL [facility] Albumin 4.4 3.5 - 5.0 g/dL [facility] Alk phos 90 40 - 130 Units/L [facility] ALT 42 7 - 55 Units/L [facility] AST 34 10 - 50 Units/L [facility] Blood specimen (specimen) 02/17/2019 2:06 PM CDT 02/17/2019 2:35 PM CDT Narrative [facility] - 02/17/2019 3:36 PM CDT Please fax lab results to [phone] Roxanna Valenzuela MD LAB BLOOD ORDERABLE S Final Result [facility] [address] [place], [place] [id number] * Ferritin (02/17/2019 2:06 PM CDT) Ferritin 225 30 - 400 ng/mL [facility] Blood specimen (specimen) 02/17/2019 2:06 PM CDT 02/17/2019 2:35 PM CDT Cristal Longoria SCHOOL TRAFFIC GUARD LAB BLOOD ORDERABLES Final Result Performing Organization Address [facility]/ZIP Co de Phone Number [facility] [address] [place] [address] * Iron profile w/ IBC (02/17/2019 2:06 PM CDT) Iron 94 50 - 150 mcg/dL [facility] TIBC 274 250 - 400 mcg/dL [facility] Transferrin saturation 34 20 - 50 % [facility] Blood specimen (specimen) 02/17/2019 2:06 PM CDT 02/17/2019 2:35 PM CDT Cristal Longoria SCHOOL TRAFFIC GUARD LAB BLOOD ORDERABLES Final Result Performing Organization Address [facility] Co de Phone Number [facility] [address] [place] [address] * Vitamin B12 (02/17/2019 2:06 PM CDT) Pathologist [facility] Vitamin B12 561 230 - 1,250 pg/mL [facility] Blood specimen (specimen) 02/17/2019 2:06 PM CDT 02/17/2019 2:35 PM CDT Eleanor Ramon MD LAB BLOOD ORDERABLES Final Result Performing Organization Address [facility] Co de Phone Number [facility] [address] [place] [address] * Differential, auto (02/17/2019 2:02 PM CDT) Neutrophil abs 6.4 1.8 - 6.6 K/cumm [facility] Comment:Testing performed by : [facility], [address] [place] [phone] Lymphocyte abs 1.7 1.2 - 3.3 K/cumm [facility] Comment:Testing performed by : [facility], [address] [place] [phone] Monocyte abs 0.5 0.2 - 1.2 K/cumm [facility] Comment:Testing performed by : [facility], [address] [place] [phone] Eosinophil abs 0.2 0.0 - 0.5 K/cumm [facility] Comment:Testing performed by : [facility], [address] [place] [phone] Basophil abs 0.1 0.0 - 0.2 K/cumm [facility] Comment:Testing performed by : [facility], [address] [place] [phone] Neutrophil pct 72.2 % [facility] Comment: Interpretive Data Percent cell count reference ranges are not reported, since discordance with absolute values may lead to misinterpretation of CBC data. Current Interpretive Data was last revised on 2017. Testing performed by: [facility], [address] [place] [phone] Lymphocyte pct 18.9 % [facility] Comment: Interpretive Data Percent cell count reference ranges are not reported, since discordance with absolute values may lead to misinterpretation of CBC data. Current Interpretive Data was last revised on 2017. Testing performed by: [facility], [address] [place] [phone] Monocyte pct 5.8 % [facility] Comment:Testing performed by : [facility], [address] [place] [phone] Eosinophil pct 2.3 % [facility] Comment:Testing performed by : [facility], [address] [place] [phone] Basophil pct 0.8 % [facility] Comment:Testing performed by : [facility], [address] [place] [phone] Blood specimen (specimen) 02/17/2019 2:02 PM CDT 02/17/2019 2:05 PM CDT Cristal Longoria SCHOOL TRAFFIC GUARD LAB BLOOD ORDERABLES Final Result [facility] [address] [place] [address] * (ABNORMAL) CBC with auto differential (02/17/2019 2:02 PM CDT) WBC 8.9 3.8 - 9.8 K/cumm [facility] Comment:Testing performed by : [facility], [address] [place] [address] Hgb 15.5 13.8 - 17.2 g/dL [facility] Comment:Testing performed by : [place] [address] Hct 44.6 40.7 - 50.3 % [facility] Comment:Testing performed by : [place] [address] Plt 247 140 - 440 K/cumm [facility] Comment:Testing performed by : [place] [address] MPV 7.8 6.8 - 10.4 fL [facility] Comment:Testing performed by : [place] [address] RBC 5.17 4.50 - 5.70 M/cumm [facility] Comment:Testing performed by : [place] [address] MCV 86.4 80.0 - 97.6 fL [facility] Comment:Testing performed by : [place] [address] MCH 29.9 26.7 - 33.7 pg [facility] Comment:Testing performed by : [place] [address] MCHC 34.6 32.7 - 35.5 g/dL [facility] Comment:Testing performed by : [place] [address] RDW CV 14.7(H) 11.8 - 14.6 % [facility] Comment:Testing performed by : [place] [address] NRBC abs 0.00 0.00 - 0.01 K/cumm [facility] Comment:Testing performed by : [place] [address] Blood specimen (specimen) 02/17/2019 2:02 PM CDT 02/17/2019 2:05 PM CDT Cristal Longoria SCHOOL TRAFFIC GUARD LAB BLOOD ORDERABLES Final Result Performing Organization Address [facility] de Phone Number [facility] [address] [place] [address] * Reticulocyte Count (02/17/2019 2:02 PM CDT) Retics, absolute 0.070 0.020 - 0.087 M/cumm [facility] Comment:Testing performed by : [facility], [address] [place] [phone] Retics 1.35 0.50 - 1.80 % [facility] Comment:Testing performed by : [facility], [address] [place] [phone] Blood specimen (specimen) 02/17/2019 2:02 PM CDT 02/17/2019 2:05 PM CDT Cristal Longoria SCHOOL TRAFFIC GUARD LAB BLOOD ORDERABLES Final Result Performing Organization Address [facility] de Phone Number [facility] [address] [place] [address] documented in this encounter Visit Diagnoses Diagnosis Iron deficiency anemia due to chronic blood loss Iron deficiency anemia secondary to blood loss (chronic) Vitamin B12 deficiency Other B-complex deficiencies Crohn's disease of both small and large intestine without complication (CMS/HCC) (HCC) Crohn's disease of both small and large intestine with intestinal obstruction (HCC) documented in this encounter Orders Appointment Requests Count Last Ordered Date Fi rst Ordered Date ONCBCN LAB APPOINTMENT 1 02/17/2019 documented in this encounter Care Teams Unit Control Clerk Relationship Specialty Start Date End Date Luis Maya MD [address] [place] [address] PCP - General 07/23/16 03/17/19 documented as of this encounter
--- OUTSIDE RECORDS SUMMARY | 2024-05-18 22:17 | XMS_ITS | Encounter Summary ---
Author Organization [facility] Address [address] [place] [address] Phone Care Team Providers Care Legal Associate Name Role Phone Luis Maya MD Primary Care Provider [phone] Encounter Details Date Type Department Care Team (Late st Contact Info) Description 01/31/2018 Orders Only [facility] Gastroenterology [address] [facility] 8th [place] [address] [place] [id number] [place] CMA Social History Tobacco Use Types Packs/Day Years Used Date Smoking Tobacco: Never Smokeless Tobacco: Never Sex and Gender Information Value Date Recorded Sex Assigned at Not on file Legal Sex Male 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 Endoscopy [id number] [place] [address] Nikolay Boucher MD [address] [place] [address] 05/22/2024 10:45 AM PROGRAM MANAGEMENT MANAGER - 05/22/2024 11:15 AM PROGRAM MANAGEMENT MANAGER Surgery [facility] Endoscopy [address] [address] Nikolay Boucher MD [address] [place] [address] EGD Scheduled Procedures Name Priority Associated Diagnoses Date/Ti me ESOPHAGOGASTRODUODENOSCOPY Crohn's disease of both small and large intestine with intestinal obstruction (HCC) 05/22/2024 10:45 AM PROGRAM MANAGEMENT MANAGER documented as of this encounter Visit Diagnoses Not on filedocumented in this encounter Historical Medications * This list may reflect changes made after this encounter. zolpidem (AMBIEN) 10 mg tablet Take 1 tablet (10 mg total) by mouth nightly as needed 5 12/13/2017 testosterone cypionate (DEPO-TESTOTERONE) 200 mg/mL injection INJ 1 ML IM Q WK 5 11/29/2017 CIALIS 20 mg tablet TK 1 T PO QD PRN 5 11/26/2017 ondansetron (ZOFRAN) 8 mg tablet Take 1 tablet (8 mg total) by mouth as needed 5 12/01/2017 hydroCHLOROthiazid e (HYDRODIURIL) 25 mg tablet Take 1 tablet (25 mg total) by mouth as needed folic acid (FOLVITE) 1 mg tablet Take 1 tablet (1 mg total) by mouth every morning 3 10/25/2017 cyanocobalamin (Vitamin B-12) 1,000 mcg/mL injection INJECT 1 ML Q 2 WEEKS UTD 4 12/10/2017 ALPRAZolam (XANAX) 1 mg tablet TK 1/2 TO 1 T PO BID PRF ANXIETY 5 11/21/2017 losartan (COZAAR) 25 mg tablet Take 25 mg by mouth every morning 6 11/25/2017 1 hyoscyamine (LEVSIN) 0.125 mg tabletIndications: Urinary Incontinence TK 1 T PO Q 6 H PRF ABD SPASMS 5 12/05/2017 9 ergocalciferol (VITAMIN D) 50,000 unit capsule TK ONE C PO Q MONTH UTD 0 11/25/2017 9 added in this encounter Care Teams Legal Associate Relationship Specialty Start Date End Date Luis Maya MD [address] [place] [address] PCP - General 07/23/16 03/17/19 documented as of this encounter
--- OUTSIDE RECORDS SUMMARY | 2024-05-18 22:17 | XMS_ITS | Encounter Summary ---
Author Organization [facility] Address [address] [place] [address] Phone Care Team Providers Care Sales And Catering Coordinator Name Role Phone Luis Maya MD Primary Care Provider [phone] Encounter Details Date Type Department Care Team (Late st Contact Info) Description 02/17/2019 2:45 PM CDT Office Visit [facility] Hematology [address] [facility] 7th [place] [address] [place] [address] Eleanor Ramon MD [address] [place] [address] Iron deficiency anemia due to chronic blood loss (Primary Dx); Vitamin B12 deficiency Social History Tobacco Use Types Packs/Day Years Used Date Smoking Tobacco: Never Smokeless Tobacco: Never Sex and Gender Information Value Date Recorded Sex Assigned at Not on file Legal Sex Male 1:20 AM SERVICE PROMOTER SALESPERSON Gender Identity Not on file Sexual Orientation Not on file documented as of this encounter Last Filed Vital Signs Vital Sign Reading Time Taken Comments Blood Pressure 124/75 02/17/2019 2:36 PM CDT Pulse 76 02/17/2019 2:36 PM CDT Temperature 36.9 ??C (98.5 ??F) 02/17/2019 2:36 PM CD T Respiratory Rate 18 02/17/2019 2:36 PM CDT Oxygen Saturation 98% 02/17/2019 2:36 PM CDT Inhaled Oxygen Concentration - - Weight 93.9 kg (207 lb) 02/17/2019 2:36 PM CDT Height - - Body Mass Index 27.31 01/31/2018 7:58 AM CDT documented in this encounter Progress Notes * Delonte Pa MD - 02/17/2019 2:45 PM CDT PATIENT NAME: Mello Herbert : 1965 DATE OF SERVICE: 02/17/2019 CHIEF COMPLAINT: Here for follow-up of iron deficiency anemia HPI: Mr. Herbert is a 53 y.o.year old male with a medical history significant for Crohn's disease on Humira, low testosterone on testosterone supplementation with resulting erythrocytosis, as well as irondeficiency anemia, who presents for follow up. ??He has tried oral iron in the past, but was unableto tolerate this, thus he has received intermittent IV iron. ?? His last IV iron was 07/25/17 and 08/20/17. He reports this last iron infusion really improved his energy fairly quickly. He does continue to take testosterone injections, however reports he does not dothis regularly. His last injection was on two weeks ago. He denies any blood in his stool, weight loss, night sweats, fevers, shortness of breath, chest pain, and all other review of systems are negative. FAMILY HISTORY: reviewed and non-contributory SOCIAL HISTORY: He is and lives with his . 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 He is a never smoker. He does not use alcohol or illicit drugs. VITALS: Vitals BP 124/75 (BP Location: Left arm) Pulse 76 Temp 36.9 ??C (98.5 ??F) (Oral) Resp 18 Wt 93.9 kg (207 lb) SpO2 98% BMI 27.31 kg/m?? PHYSICAL EXAM: Physical Exam Constitutional: He is oriented to person, place, and time. He appears well- developed and well-nourished. HENT: Head: Normocephalic and atraumatic. Eyes: Pupils are equal, round, and reactive to light. Conjunctivae and EOM are normal. Neck: Normal range of motion. Neck supple. No thyromegaly present. Cardiovascular: Normal rate, regular rhythm and normal heart sounds. Pulmonary/Chest: Effort normal and breath sounds normal. Abdominal: Soft. Bowel sounds are normal. Musculoskeletal: Normal range of motion. Neurological: He is alert and oriented to person, place, and time. Skin: Skin is warm and dry. Psychiatric: He has a normal mood and affect. LABORATORY DATA: Hepatic function panel is unremarkable. B12 is normal at 561. CBC with a white count of 8900 with anormal differential. Hemoglobin is 15.5 with an MCV of 86.4. Platelets are 247,000. Reticulocyte count is 1.4% with an absolute number of 70,000. Ferritin is good at 225, iron 94, TIBC 274, and saturation 34%. ASSESSMENT AND PLAN: 1. Iron deficiency anemia. ??Mr. Herbert presents for follow up of iron deficiency anemia. ??He hasa hemoglobin of 15.5, improved from 13.3 during last visit, which was likely due to his blood donation around that time. He has previously had an erythrocytosis secondary to testosterone supplementation. ??He does continue testosterone injections but he reports he does not do this on a regular basis. He was found to have recurrent iron deficiency on 07/23/17 with a ferritin of 34 and he was given a dose of IV Injectafer on 07/25/17 and 08/20/17. ??He has otherwise had stable iron stores since that time. We will defer further IV iron supplementation at this time, if his iron panel is unremarkable.We did discuss that given his iron deficiency in the past and tendency towards anemia given his Crohn's disease, we recommended that he follow up with GI. We will plan to see him back and reevaluate in 6 months. He is concerned that he may be zinc deficienct so we will plan to check a zinc and copper level at follow-up. ??He knows to call with questions or concerns in the interim. ?? 2. Vitamin B12 deficiency. ??Mr. Herbert has had evidence of vitamin B12 deficiency and receives twice monthly B12 through another provider. ?? DISPOSITION: The patient will return follow up in 6 months. He knows to contact our office with anyquestions or concerns prior to the next follow up appointment. Delonte Pa MD Cosigned by Eleanor Ramon MD at 02/18/2019 10:53 AM CDT Associated attestation - Eleanor Ramon MD - 02/18/2019 10:53 AM CDT I have seen and examined the patient. I agree with the findings and plan of care as documented in the resident/fellow's note. documented in this encounter Plan of Treatment Upcoming Encounters Date Type Department Care Team (Late st Contact Info) Description 05/22/2024 10:45 AM SERVICE PROMOTER SALESPERSON Hospital Encounter [facility] Endoscopy [address] [address] Nikolay Boucher MD [address] [place] [address] 05/22/2024 10:45 AM SERVICE PROMOTER SALESPERSON - 05/22/2024 11:15 AM SERVICE PROMOTER SALESPERSON Surgery [facility] Endoscopy [address] [address] Nikolay Boucher MD [address] [place] [address] EGD Scheduled Procedures Name Priority Associated Diagnoses Date/Ti ut ESOPHAGOGASTRODUODENOSCOPY Crohn's disease of both small and large intestine with intestinal obstruction (HCC) 05/22/2024 10:45 AM SERVICE PROMOTER SALESPERSON documented as of this encounter Results * Vitamin B12 (02/17/2019 2:06 PM CDT) Vitamin B12 561 230 - 1,250 pg/mL [facility] Blood specimen (specimen) 02/17/2019 2:06 PM CDT 02/17/2019 2:35 PM CDT Eleanor Ramon MD LAB BLOOD ORDERABLES Final Result [facility] [address] [place], [place] [id number] documented in this encounter Visit Diagnoses Diagnosis Iron deficiency anemia due to chronic blood loss- Primary Iron deficiency anemia secondary to blood loss (chronic) Vitamin B12 deficiency Other B-complex deficiencies Crohn's disease of both small and large intestine with intestinal obstruction (HCC) documented in this encounter Historical Medications * This list may reflect changes made after this encounter. Medication Sig Dispense Quantity Refills Last Filled Start D ate End Date BD SAFETYGLIDE SYRINGE 3 mL 23 x 1 syringe U UTD 5 11/26/2018 added in this encounter Orders Appointment Requests Count Last Ordered Date Fi rst Ordered Date ONCBCN CLINIC APPOINTMENT REQUEST 1 019 documented in this encounter Care Teams Sales And Catering Coordinator Relationship Specialty Start Date End Date Luis Maya MD [address] [place] [address] PCP - General 07/23/16 03/17/19 documented as of this encounter
--- OUTSIDE RECORDS SUMMARY | 2024-05-18 22:17 | XMS_ITS | Encounter Summary ---
Author Organization [facility] Address [address] [place] [address] Phone Care Team Providers Care Barrel Bung Remover And Dumper Name Role Phone Luis Maya MD Primary Care Provider [phone] Encounter Details Date Type Department Care Team (Late st Contact Info) Description 11/20/2017 Orders Only [facility] Gastroenterology [address] [facility] 8th [place] [address] [place] [phone] Sofia Talamantes Social History Tobacco Use Types Packs/Day Years Used Date Smoking Tobacco: Never Sex and Gender Information Value Date Recorded Sex Assigned at Not on file Legal Sex Male 1:20 AM PLASTICS FITTER Gender Identity Not on file Sexual Orientation Not on file documented as of this encounter Plan of Treatment Upcoming Encounters Date Type Department Care Team (Late st Contact Info) Description 05/22/2024 10:45 AM PLASTICS FITTER Hospital Encounter [facility] Endoscopy [address] [place] [address] Nikolay Boucher MD [address] [place] [address] 05/22/2024 10:45 AM PLASTICS FITTER - 05/22/2024 11:15 AM PLASTICS FITTER Surgery [facility] Endoscopy [address] [place] [address] Nikolay Boucher MD [address] [place] [address] EGD Scheduled Procedures Name Priority Associated Diagnoses Date/Ti me ESOPHAGOGASTRODUODENOSCOPY Crohn's disease of both small and large intestine with intestinal obstruction (HCC) 05/22/2024 10:45 AM PLASTICS FITTER documented as of this encounter Visit Diagnoses Not on filedocumented in this encounter Historical Medications * This list may reflect changes made after this encounter. adalimumab (HUMIRA PEN) 40 mg/0.8 mL pen injector kit INJECT THE CONTENTS OF ONE PEN (40 MG) SUBCUTANEOUSLY EVERY 14 DAYS (safety labs due every 3 months Due 11/2017) 05/02/2016 8 added in this encounter Care Teams Barrel Bung Remover And Dumper Relationship Specialty Start Date End Date Luis Maya MD [address] [place] [address] PCP - General 07/23/16 03/17/19 documented as of this encounter
--- OUTSIDE RECORDS SUMMARY | 2024-05-18 22:17 | XMS_ITS | Encounter Summary ---
Author Organization [facility] Address [address] [place] [address] Care Team Providers Care Harbor Master Name Role Phone Luis Maya MD Primary Care Provider [phone] Encounter Details Date Type Department Care Team (Late Contact Info) Description 01/31/2018 12:50 PM CDT Lab [address] [address] Crohn's disease of both small and large intestine with intestinal obstruction (CMS/HCC) Social History Tobacco Use Types Packs/Day Years Used Date Smoking Tobacco: Never Smokeless Tobacco: Never Sex and Gender Information Value Date Recorded Sex Assigned at Not on file Legal Sex Male 1:20 AM MATHEMATICS INSTRUCTOR Gender Identity Not on file Sexual Orientation Not on file documented as of this encounter Plan of Treatment Upcoming Encounters Date Type Department Care Team (Late Contact Info) Description 05/22/2024 10:45 AM MATHEMATICS INSTRUCTOR Hospital Encounter [facility] Endoscopy [address] [place] [address] Nikolay Boucher MD [address] [place] [address] 05/22/2024 10:45 AM MATHEMATICS INSTRUCTOR - 05/22/2024 11:15 AM MATHEMATICS INSTRUCTOR Surgery [facility] Endoscopy [address] [place] [address] Nikolay Boucher MD [address] [place] [address] EGD Scheduled Procedures Name Priority Associated Diagnoses Date/Ti me ESOPHAGOGASTRODUODENOSCOPY Crohn's disease of both small and large intestine with intestinal obstruction (HCC) 05/22/2024 10:45 AM MATHEMATICS INSTRUCTOR documented as of this encounter Procedures Procedure Name Priority Date/Time Associated Diagnosis Comments T-SPOT.TB Routine 01/31/2018 8:58 AM CDT Crohn's disease of both small and large intestine with intestinal obstruction (CMS/HCC) documented in this encounter Results * TB test, T-SPOT (01/31/2018 8:58 AM CDT) IFN-Gamma Release Assay TB Negative [facility] Comment: See scanned result in Medical Record. Interpretive Data Testing performed by [employer], [id number] [address] Current Interpretive Data was last revised 2014 Blood specimen (specimen) 01/31/2018 8:58 AM CDT 01/31/2018 12:49 PM CDT Narrative [facility] - 02/02/2018 7:37 PM CDT Claudia Mcclendon COMMERCIAL COLLECTOR LAB MICROBIOLO GY - GENERAL ORDERABLES Final Result [facility] Department [place] [address] documented in this encounter Visit Diagnoses Diagnosis Crohn's disease of both small and large intestine with intestinal obstruction (HCC) Crohn's disease of both small and large intestine with intestinal obstruction (HCC) documented in this encounter Care Teams Harbor Master Relationship Specialty Start Date End Date Luis Maya MD [facility] [place] [address] PCP - General 07/23/16 03/17/19 documented as of this encounter
--- OUTSIDE RECORDS SUMMARY | 2024-05-18 22:17 | XMS_ITS | Encounter Summary ---
Author Organization [facility] Address [address] [place] [address] Phone Care Team Providers Care Electrician Substation Name Role Phone Luis Maya MD Primary Care Provider [phone] Encounter Details Date Type Department Care Team (Late st Contact Info) Description 07/16/2018 Orders Only [facility] Gastroenterology [address] [facility] 8th [place] [address] [place] [phone] Nya Hand RN Social History Tobacco Use Types Packs/Day Years Used Date Smoking Tobacco: Never Smokeless Tobacco: Never Sex and Gender Information Value Date Recorded Sex Assigned at Not on file Legal Sex Male 1:20 AM BIOFUELS PROCESSING TECHNICIAN Gender Identity Not on file Sexual Orientation Not on file documented as of this encounter Ordered Prescriptions Prescription Sig Dispense Quantity Refills Last Filled Start Date End Date adalimumab 40 mg/0.4 mL pen injector kit Inject 1 pen under the skin every 14 (fourteen) days. ,SAFETY LABS REQUIRED EVERY 3 MONTHS FOR MED REFILLS DUE NEXT 09/2018 2 kit 5 07/16/2018 9 documented in this encounter Plan of Treatment Upcoming Encounters Date Type Department Care Team (Late st Contact Info) Description 05/22/2024 10:45 AM BIOFUELS PROCESSING TECHNICIAN Hospital Encounter [facility] Endoscopy [address] [address] Nikolay Boucher MD [address] [place] [address] 05/22/2024 10:45 AM BIOFUELS PROCESSING TECHNICIAN - 05/22/2024 11:15 AM BIOFUELS PROCESSING TECHNICIAN Surgery [facility] Endoscopy [address] [address] Nikolay Boucher MD [address] [place] [address] EGD Scheduled Procedures Name Priority Associated Diagnoses Date/Ti me ESOPHAGOGASTRODUODENOSCOPY Crohn's disease of both small and large intestine with intestinal obstruction (HCC) 05/22/2024 10:45 AM BIOFUELS PROCESSING TECHNICIAN documented as of this encounter Visit Diagnoses Not on filedocumented in this encounter Discontinued Medications Medication Sig Discontinue Reason Start Date End Da te adalimumab 40 mg/0.4 mL pen injector kit Inject 1 pen under the skin every 14 (fourteen) days. ,SAFETY LABS REQUIRED EVERY 3 MONTHS FOR MED REFILLS DUE NEXT 09/2018 Reorder 06/30/2018 07/16/2018 documented as of this encounter Care Teams Electrician Substation Relationship Specialty Start Date End Date Luis Maya MD [facility] [place] [address] PCP - General 07/23/16 03/17/19 documented as of this encounter
--- OUTSIDE RECORDS SUMMARY | 2024-05-18 22:17 | XMS_ITS | Encounter Summary ---
Author Organization [facility] Address [address] [place] [address] Phone Care Team Providers Care Outreach Associate Name Role Phone Luis Maya MD Primary Care Provider [phone] Encounter Details Date Type Department Care Team (Late st Contact Info) Description 01/31/2018 9:10 AM CDT Lab [facility] Endocrinology Metabolism and Lipid [address] [facility] Advanced [facility] 8th [place] [address] [place] [address] Crohn's disease of both small and large intestine with intestinal obstruction (CMS/HCC); Vitamin D deficiency Social History Tobacco Use Types Packs/Day Years Used Date Smoking Tobacco: Never Smokeless Tobacco: Never Sex and Gender Information Value Date Recorded Sex Assigned at Not on file Legal Sex Male 1:20 AM ELECTRIC REFRIGERATOR PREPARER Gender Identity Not on file Sexual Orientation Not on file documented as of this encounter Plan of Treatment Upcoming Encounters Date Type Department Care Team (Late st Contact Info) Description 05/22/2024 10:45 AM ELECTRIC REFRIGERATOR PREPARER Hospital Encounter [facility] Endoscopy [address] [place] [address] Nikolay Boucher MD [address] [place] [address] 05/22/2024 10:45 AM ELECTRIC REFRIGERATOR PREPARER - 05/22/2024 11:15 AM ELECTRIC REFRIGERATOR PREPARER Surgery [facility] Endoscopy [address] [address] Nikolay Boucher MD [address] [place] [address] EGD Scheduled Procedures Name Priority Associated Diagnoses Date/Ti me ESOPHAGOGASTRODUODENOSCOPY Crohn's disease of both small and large intestine with intestinal obstruction (HCC) 05/22/2024 10:45 AM ELECTRIC REFRIGERATOR PREPARER documented as of this encounter Procedures Procedure Name Priority Date/Time Associated Diagnosis Comments CBC WITH AUTO DIFFERENTIAL Routine 01/31/2018 9:10 AM CDT Crohn's disease of both small and large intestine with intestinal obstruction (CMS/HCC) VITAMIN D 25 HYDROXY Routine 01/31/2018 9:10 AM CDT Vitamin D deficiency HEPATIC FUNCTION PANEL Routine 01/31/2018 9:10 AM CDT Crohn's disease of both small and large intestine with intestinal obstruction (CMS/HCC) documented in this encounter Results * Hepatic function panel (01/31/2018 9:10 AM CDT) Direct Bilirubin 0.19 0.00 - 0.30 mg/dL [facility] AST (SGOT) 27 11 - 47 IU/L [facility] ALT (SGPT) 26 6 - 53 IU/L [facility] Alk Phos, Total 87 35 - 129 IU/L [facility] Albumin 4.5 3.5 - 5.2 g/dL [facility] Total Bilirubin 1.05 0.20 - 1.40 mg/dL [facility] Total Protein 7.5 6.1 - 8.4 g/dL [facility] Blood specimen (specimen) 01/31/2018 9:10 AM CDT 01/31/2018 10:35 AM CDT us Claudia Mcclendon SCIENCE PROFESSOR LAB BLOOD ORDE KAZ Final Result [facility] * (ABNORMAL) Vitamin D 25 hydroxy (01/31/2018 9:10 AM CDT) Pathologist [facility] Vitamin D 21.5(L) 30.0 - 100.0 ng/mL [facility] Comment: VITAMIN D DEFICIENCY = LESS THAN 20 ng/mL) ? VITAMIN D INSUFFICIENCY = LESS THAN 30 ng/mL ? RECOMMENDED NORMAL RANGE = 30-100 ng/mL Blood specimen (specimen) 01/31/2018 9:10 AM CDT 01/31/2018 10:35 AM CDT Claudia Mcclendon SCIENCE PROFESSOR LAB BLOOD ORDE KAZ Final Result Performing Organization Address [facility] [address] [facility] de Phone Number [facility] * (ABNORMAL) CBC with auto differential (01/31/2018 9:10 AM CDT) Pathologist [facility] White Blood Count 9.1 3.6 - 11.2 K/uL [facility] RBC 5.43 4.06 - 5.63 M/uL [facility] Hemoglobin 16.4 13.0 - 17.5 g/dL [facility] Hematocrit 48.9 40.7 - 50.3 % [facility] MCV 90.2 80.0 - 97.6 fL [facility] MCH 30.2 26.7 - 33.7 pg [facility] MCHC 33.5 32.7 - 35.5 g/dL [facility] RBC Dist Width 14.4 12.3 - 17.0 % [facility] Platelet Count 210 140 - 440 K/uL [facility] MPV 8.4 6.8 - 10.4 fL [facility] Neutrophils % 68.9 38.7 - 74.5 % [facility] Lymphocyte % 18.9(L) 20.0 - 54.3 % [facility] Monocytes % 9.1 4.3 - 13.5 % [facility] Eosinophils % 2.4 0.0 - 6.0 % [facility] Basophil % 0.7 0.0 - 3.0 % [facility] Absolute Neutrophil 6.3 1.8 - 6.6 K/uL [facility] Absolute Lymphocyte 1.7 0.8 - 3.3 K/uL [facility] Absolute Monocyte 0.8 0.2 - 1.2 K/uL [facility] Absolute Eosinophil 0.2 0.0 - 0.5 K/uL [facility] Absolute Basophil 0.1 0.0 - 0.2 K/uL [facility] Nucleated RBC % 0.1 0.0 - 0.4 /100 WBC [facility] Blood specimen (specimen) 01/31/2018 9:10 AM CDT 01/31/2018 10:35 AM CDT us Claudia Mcclendon SCIENCE PROFESSOR LAB BLOOD JEFFERSONE KAZ Final Result Performing Organization Address City/State/[facility] Co de Phone Number [facility] documented in this encounter Visit Diagnoses Diagnosis Crohn's disease of both small and large intestine with intestinal obstruction (HCC) Vitamin D deficiency Crohn's disease of both small and large intestine with intestinal obstruction (HCC) documented in this encounter Care Teams Outreach Associate Relationship Specialty Start Date End Date Luis Maya MD [address] [place] [address] PCP - General 07/23/16 03/17/19 documented as of this encounter
--- OUTSIDE RECORDS SUMMARY | 2024-05-18 22:17 | XMS_ITS | Encounter Summary ---
Author Organization [facility] Address [address] [place] [address] Phone Care Team Providers Care Ice Cream Machine Operator Name Role Phone Luis Maya MD Primary Care Provider [phone] Encounter Details Date Type Department Care Team (Late st Contact Info) Description 11/20/2017 Documentation [facility] Gastroenterology [address] 8th [place] [address] [place] [address] Sofia Talamantes Social History Tobacco Use Types Packs/Day Years Used Date Smoking Tobacco: Never Sex and Gender Information Value Date Recorded Sex Assigned at Not on file Legal Sex Male 1:20 AM SALES ASSOCIATE Gender Identity Not on file Sexual Orientation Not on file documented as of this encounter Progress Notes * Sofia Talamantes - 11/20/2017 11:55 AM CDT PA approved for Humira documented in this encounter Plan of Treatment Upcoming Encounters Date Type Department Care Team (Late st Contact Info) Description 05/22/2024 10:45 AM SALES ASSOCIATE Hospital Encounter [facility] Endoscopy [address] [place] [address] Nikolay Boucher MD [address] [place] [address] 05/22/2024 10:45 AM SALES ASSOCIATE - 05/22/2024 11:15 AM SALES ASSOCIATE Surgery [facility] Endoscopy [address] [address] Nikolay Boucher MD [address] [place] [address] EGD Scheduled Procedures Name Priority Associated Diagnoses Date/Ti me ESOPHAGOGASTRODUODENOSCOPY Crohn's disease of both small and large intestine with intestinal obstruction (HCC) 05/22/2024 10:45 AM SALES ASSOCIATE documented as of this encounter Visit Diagnoses Not on filedocumented in this encounter Care Teams Ice Cream Machine Operator Relationship Specialty Start Date End Date Luis Maya MD [address] [place] [address] PCP - General 07/23/16 03/17/19 documented as of this encounter
--- OUTSIDE RECORDS SUMMARY | 2024-05-18 22:17 | XMS_ITS | Encounter Summary ---
Author Organization [facility] Address [address] [place] [address] Phone Care Team Providers Care Branch Manager Name Role Phone Luis Maya MD Primary Care Provider [phone] Encounter Details Date Type Department Care Team (Late st Contact Info) Description 08/19/2018 2:15 PM CDT Office Visit [facility] Hematology [address] [facility] 7th [place] [address] [place] [address] Eleanor Ramon MD [address] [place] [address] Iron deficiency anemia due to chronic blood loss (Primary Dx); Vitamin B12 deficiency; Erythrocytosis Social History Tobacco Use Types Packs/Day Years Used Date Smoking Tobacco: Never Smokeless Tobacco: Never Sex and Gender Information Value Date Recorded Sex Assigned at Not on file Legal Sex Male 1:20 AM AMBULANCE DISPATCHER Gender Identity Not on file Sexual Orientation Not on file documented as of this encounter Last Filed Vital Signs Vital Sign Reading Time Taken Comments Blood Pressure 111/68 08/19/2018 1:05 PM CDT Pulse 64 08/19/2018 1:05 PM CDT Temperature 36.9 ??C (98.4 ??F) 08/19/2018 1:05 PM CD T Respiratory Rate 18 08/19/2018 1:05 PM CDT Oxygen Saturation 97% 08/19/2018 1:05 PM CDT Inhaled Oxygen Concentration - - Weight 93.9 kg (207 lb) 08/19/2018 1:05 PM CDT Height - - Body Mass Index 27.31 01/31/2018 7:58 AM CDT documented in this encounter Progress Notes * Cristal Longoria, BUSINESS DEVELOPMENT - 08/19/2018 2:15 PM CDT PATIENT NAME: Mello Herbert : 1965 DATE OF SERVICE: 08/20/2018 Diagnosis: Iron deficiency anemia HPI: Mr. Herbert is a 53 y.o.year old male with a medical history significant for Crohn's disease on Humira, low testosterone on intermittent supplementation with resulting erythrocytosis, as well as irondeficiency anemia, who presents for follow up. ??He has tried oral iron in the past, but was unableto tolerate this, thus he has received intermittent IV iron. ??His last IV iron was 07/25/17 and 08/20/17. He reports this last iron infusion really improved his energy fairly quickly. At his visit in January he had replete iron stores and did not require IV iron. He reports since his last visit, hedonated blood, as he thought this would help his elevated hemoglobin due to testosterone supplementation. He does continue to take testosterone injections, however reports he does not do this regularly. He denies blood loss and reports his Crohn's disease is in clinical remission. He otherwise denies weight loss, night sweats, fevers, shortness of breath, chest pain, and all other review of systems are negative. ALLERGIES: Allergies Allergen Reactions ??? Latex Rash CURRENT MEDICATION: Current Outpatient Medications: ??? acetaminophen-codeine (TYLENOL with CODEINE #3) 300-30 mg per tablet, , Disp: , Rfl: 5 ??? ALPRAZolam (XANAX) 1 mg tablet, TK 1/2 TO 1 T PO BID PRF ANXIETY, Disp: , Rfl: 5 ??? CIALIS 20 mg tablet, TK 1 T PO QD PRN, Disp: , Rfl: 5 ??? cyanocobalamin (Vitamin B-12) 1,000 mcg/mL injection, INJECT 1 ML Q 2 WEEKS UTD, Disp: , Rfl: 4 ??? diphenoxylate-atropine (LOMOTIL) 2.5-0.025 mg per tablet, TK 1 TO 2 TS PO BID PRN, Disp: , Rfl:5 ??? ergocalciferol (VITAMIN D) 50,000 unit capsule, TK ONE C PO Q MONTH UTD, Disp: , Rfl: 0 ??? folic acid (FOLVITE) 1 [...] 2 times daily,swish and swallow for 7 days, Disp: 70 mL, Rfl: 1 ??? ondansetron (ZOFRAN) 8 mg tablet, TK 1 T PO TID PRN, Disp: , Rfl: 5 ??? testosterone cypionate (DEPO-TESTOTERONE) 200 mg/mL injection, INJ 1 ML IM Q WK, Disp: , Rfl: 5 ??? zolpidem (AMBIEN) 10 mg tablet, TK 1 T PO Q HS PRN, Disp: , Rfl: 5 ??? adalimumab 40 mg/0.4 mL pen injector kit, Inject 1 pen under the skin every 14 (fourteen) days SAFETY LABS REQUIRED EVERY 3 MONTHS FOR REFILLS DUE 10/2018, Disp: 2 kit, Rfl: 5 ??? DULoxetine DR (CYMBALTA) 30 mg capsule, TAKE ONE C BY MOUTH DAILY, Disp: , Rfl: 2 ??? venlafaxine XR (EFFEXOR-XR) 37.5 mg 24 hr capsule, TK 1 C PO QAM, Disp: , Rfl: 2 ??? vit A-vit H-egpx-smxzmlzt (ZINC WITH VITAMINS A AND C) 15 mg lozenge, Take 1 tablet by mouth, Disp: , Rfl: HISTORY Social History Socioeconomic History ??? Marital status: Spouse name: Not on file ??? Number of children: Not on file ??? Years of education: Not on file ??? Highest education level: Not on file Occupational History ??? Not on file Social Needs ??? Financial resource strain: Not on file ??? Food insecurity: Worry: Not on file Inability: Not on file ??? Transportation needs: Medical: Not on file Non-medical: Not on file Tobacco Use ??? Smoking status: Never Smoker ??? Smokeless tobacco: Never Used Substance and Sexual Activity ??? Alcohol use: Not on file ??? Drug use: Not on file ??? Sexual activity: Not on file Lifestyle ??? Physical activity: Days per week: Not on file Minutes per session: Not on file ??? Stress: Not on file Relationships ??? Social connections: Talks on phone: Not on file Gets together: Not on file Attends yazidi service: Not on file Active member of club or organization: Not on file Attends meetings of clubs or organizations: Not on file Relationship status: Not on file ??? Intimate partner violence: Fear of current or ex partner: Not on file Emotionally abused: Not on file Physically abused: Not on file Forced sexual activity: Not on file Other Topics Concern ??? Not on file Social History Narrative Marital History - Currently : (Added by TW Conv) No alcohol use : (Added by TW Conv) VITALS: Vitals BP 111/68 (BP Location: Right arm) Pulse 64 Temp 36.9 ??C (98.4 ??F) (Oral) Resp 18 Wt 93.9 kg (207 lb) SpO2 97% BMI 27.31 kg/m?? PHYSICAL EXAM: Physical Exam [...] a normal mood and affect. LABORATORY DATA: Lab on 08/19/2018 Component Date Value Ref Range Status ??? Retics, absolute 08/19/2018 0.208* 0.020 - 0.087 M/cumm Final ??? Retics 08/19/2018 4.73* 0.50 - 1.80 % Final ??? Iron 08/19/2018 72 50 - 150 mcg/dL Final ??? TIBC 08/19/2018 242* 250 - 400 mcg/dL Final ??? Transferrin saturation 08/19/2018 30 20 - 50 % Final ??? Ferritin 08/19/2018 321 30 - 400 ng/mL Final ??? WBC 08/19/2018 7.6 3.8 - 9.8 K/cumm Final ??? Hgb 08/19/2018 13.3* 13.8 - 17.2 g/dL Final ??? Hct 08/19/2018 39.8* 40.7 - 50.3 % Final ??? Plt 08/19/2018 189 140 - 440 K/cumm Final ??? MPV 08/19/2018 7.2 6.8 - 10.4 fL Final ??? RBC 08/19/2018 4.41* 4.50 - 5.70 M/cumm Final ??? MCV 08/19/2018 90.2 80.0 - 97.6 fL Final ??? MCH 08/19/2018 30.2 26.7 - 33.7 pg Final ??? MCHC 08/19/2018 33.5 32.7 - 35.5 g/dL Final ??? RDW CV 08/19/2018 15.7* 11.8 - 14.6 % Final ??? NRBC Abs 08/19/2018 0.01 0.00 - 0.01 K/cumm Final ??? Bilirubin, total 08/19/2018 0.6 0.1 - 1.2 mg/dL Final ? ? Bilirubin, direct 08/19/2018 <0.2 0.1 - 0.3 mg/dL Final ??? Protein, pl 08/19/2018 6.8 6.5 - 8.5 g/dL Final ??? Albumin 08/19/2018 4.1 3.5 - 5.0 g/dL Final ??? Alk phos 08/19/2018 83 40 - 130 Units/L Final ??? ALT 08/19/2018 32 7 - 55 Units/L Final ??? AST 08/19/2018 36 10 - 50 Units/L Final ??? Neutrophil absolute 08/19/2018 4.9 1.8 - 6.6 K/cumm Final ??? Lymphocytes absolute 08/19/2018 1.7 1.2 - 3.3 K/cumm Final ??? Monocyte absolute 08/19/2018 0.7 0.2 - 1.2 K/cumm Final ??? Eosinophils absolute 08/19/2018 0.2 0.0 - 0.5 K/cumm Final ??? Basophils, abs 08/19/2018 0.1 0.0 - 0.2 K/cumm Final ??? Neutrophils 08/19/2018 64.4 % Final ??? Lymphocytes 08/19/2018 22.8 % Final ??? Monocytes 08/19/2018 9.5 % Final ??? Eosinophils 08/19/2018 2.6 % Final ??? Basophils 08/19/2018 0.7 % Final ASSESSMENT AND PLAN: Patient Active Problem List Diagnosis ??? Iron deficiency anemia due to chronic blood loss ??? Erythrocytosis ??? Crohn's disease of both small and large intestine (CMS/HCC) ??? Vitamin B12 deficiency 1. Iron deficiency anemia. ??Mr. Herbert presents for follow up of iron deficiency anemia. ??He hasa hemoglobin of 13.3, likely as a result of recent blood donation. He has previously had an erythrocytosis secondary [...] otherwise had stable iron stores since that time and has a ferritin today of 321 with an otherwisenormal iron profile. We will defer further IV iron supplementation at this time. We did discuss that given his iron deficiency in the past and tendency towards anemia given his Crohn's disease, I would recommend he defer further blood donations at this time We will plan to see him back and reevaluate in 6 months. ??He knows to call with questions or concerns in the interim. ?? 2. Vitamin B12 deficiency. ??Mr. Herbert has had evidence of vitamin B12 deficiency and receives twice monthly B12 through another provider. ?? DISPOSITION: The patient will return follow up in 6 months. They know to contact our office with any questions or concerns prior to the next follow up appointment. Cristal Longoria NP documented in this encounter Plan of Treatment Upcoming Encounters Date Type Department Care Team (Late st Contact Info) Description 05/22/2024 10:45 AM AMBULANCE DISPATCHER Hospital Encounter [facility] Endoscopy [address] [place] [address] Nikolay Boucher MD [address] [place] [address] 05/22/2024 10:45 AM AMBULANCE DISPATCHER - 05/22/2024 11:15 AM AMBULANCE DISPATCHER Surgery [facility] [address] [address] Nikolay Boucher MD [address] [place] [address] EGD Scheduled Procedures Name Priority Associated Diagnoses Date/Ti me ESOPHAGOGASTRODUODENOSCOPY Crohn's disease of both small and large intestine with intestinal obstruction (HCC) 05/22/2024 10:45 AM AMBULANCE DISPATCHER documented as of this encounter Results * Iron profile w/ IBC (02/17/2019 2:06 PM CDT) Iron 94 50 - 150 mcg/dL [facility] TIBC 274 250 - 400 mcg/dL [facility] Transferrin saturation 34 20 - 50 % [facility] Blood specimen (specimen) 02/17/2019 2:06 PM CDT 02/17/2019 2:35 PM CDT Cristal Renettasaulo Longoria BUSINESS DEVELOPMENT LAB BLOOD ORDERABLES Final Result Performing Organization Address [facility] de Phone Number [address] [phone] * Ferritin (02/17/2019 2:06 PM CDT) Pathologist [facility] Ferritin 225 30 - 400 ng/mL [facility] Blood specimen (specimen) 02/17/2019 2:06 PM CDT 02/17/2019 2:35 PM CDT Cristal Longoria LAB BLOOD ORDERABLES Final Result Performing Organization Address [facility] de Phone Number [address] [address] * Reticulocyte Count (02/17/2019 2:02 PM CDT) [facility] Retics, absolute 0.070 0.020 - 0.087 M/cumm [facility] Comment:Testing performed by : [facility], [address] [place] [phone] Retics 1.35 0.50 - 1.80 % [facility] Comment:Testing performed by : [facility], [address] [place] [phone] Blood specimen (specimen) 02/17/2019 2:02 PM CDT 02/17/2019 2:05 PM CDT Cristal Longoria BUSINESS DEVELOPMENT LAB BLOOD ORDERABLES Final Result Performing Organization Address [facility] de Phone Number [address] [phone] * (ABNORMAL) CBC with auto differential (02/17/2019 2:02 PM CDT) WBC 8.9 3.8 - 9.8 K/cumm [facility] Comment:Testing performed by : [facility], [address] [place], [place] [phone] Hgb 15.5 13.8 - 17.2 g/dL [facility] Comment:Testing performed by : [facility], [address] [place], [place] [phone] Hct 44.6 40.7 - 50.3 % [facility] Comment:Testing performed by : [facility], [address] [place] [address] Plt 247 140 - 440 K/cumm [facility] Comment:Testing performed by : [place] [address] MPV 7.8 6.8 - 10.4 fL [facility] Comment:Testing performed by : [place] [address] RBC 5.17 4.50 - 5.70 M/cumm [facility] Comment:Testing performed by : [facility], [address] [place] [address] MCV 86.4 80.0 - 97.6 fL [facility] Comment:Testing performed by : [place] [address] MCH 29.9 26.7 - 33.7 pg [facility] Comment:Testing performed by : [place] [address] MCHC 34.6 32.7 - 35.5 g/dL [facility] Comment:Testing performed by : [facility], [address] [place], [place] [id number] RDW CV 14.7(H) 11.8 - 14.6 % [facility] Comment:Testing performed by : [place] [address] NRBC abs 0.00 0.00 - 0.01 K/cumm [facility] Comment:Testing performed by : [place] [phone] Blood specimen (specimen) 02/17/2019 2:02 PM CDT 02/17/2019 2:05 PM CDT us Cristal Longoria BUSINESS DEVELOPMENT LAB BLOOD ORDERABLES Final Result [facility] [address] [place] [address] documented in this encounter Visit Diagnoses Diagnosis Iron deficiency anemia due to chronic blood loss- Primary Iron deficiency anemia secondary to blood loss (chronic) Vitamin B12 deficiency Other B-complex deficiencies Erythrocytosis Polycythemia, secondary Crohn's disease of both small and large intestine with intestinal obstruction (HCC) documented in this encounter Orders Appointment Requests Count Last Ordered Date Fi rst Ordered Date ONCBCN CLINIC APPOINTMENT REQUEST 2 019 08/19/2018 ONCBCN LAB APPOINTMENT 1 02/17/2019 documented in this encounter Care Teams Branch Manager Relationship Specialty Start Date End Date Luis Maya MD [address] [place] [address] PCP - General 07/23/16 03/17/19 documented as of this encounter
--- OUTSIDE RECORDS SUMMARY | 2024-05-18 22:17 | XMS_ITS | Encounter Summary ---
Author Organization [facility] Address [address] [place] [address] Phone Care Team Providers Care Band Bias Machine Operator Name Role Phone Luis Maya MD Primary Care Provider [phone] Reason for Visit * Oncology (Routine) - Closed Specialty Diagnoses / Procedures Referred By Contac t Referred To Contact Lab Diagnoses Iron deficiency anemia due to chronic blood loss Erythrocytosis Procedures ONCBCN LAB APPOINTMENT ARM DRAW Eleanor Ramon MD Phone: tel: fax: [facility] Oncology [facility] Medicine 7th [place] [address] [place] [address] Phone: tel: Referral ID Status Reason Start Date Expiration Date Visits Re quested Visits Authorized [id number] Closed 05/15/2018 11/24/2019 99 99 Encounter Details Date Type Department Care Team (Late st Contact Info) Description 08/19/2018 1:15 PM CDT Lab [facility] Oncology [facility] Advanced Medicine 7th [place] [address] [place] [address] Eleanor Ramon MD [address] [place] [address] Iron deficiency anemia due to chronic blood loss; Erythrocytosis; Crohn's disease of both small and large intestine without complication (CMS/HCC) Discharge Disposition: Discharge to home or self care Social History Tobacco Use Types Packs/Day Years Used Date Smoking Tobacco: Never Smokeless Tobacco: Never Sex and Gender Information Value Date Recorded Sex Assigned at Not on file Legal Sex Male 1:20 AM STAVE HEWER Gender Identity Not on file Sexual Orientation Not on file documented as of this encounter Discharge Disposition Disposition Code Departure Means Destination Discharge to home or self care documented in this encounter Plan of Treatment Upcoming Encounters Date Type Department Care Team (Late st Contact Info) Description 05/22/2024 10:45 AM STAVE HEWER Hospital Encounter [facility] Endoscopy [address] [place] [address] Nikolay Boucher MD [address] [place] [address] 05/22/2024 10:45 AM STAVE HEWER - 05/22/2024 11:15 AM STAVE HEWER Surgery [facility] Endoscopy [address] [place] [address] Nikolay Boucher MD [address] [place] [address] EGD Scheduled Procedures Name Priority Associated Diagnoses Date/Ti me ESOPHAGOGASTRODUODENOSCOPY Crohn's disease of both small and large intestine with intestinal obstruction (HCC) 05/22/2024 10:45 AM STAVE HEWER documented as of this encounter Procedures Procedure Name Priority Date/Time Associated Diagnosis Comments DIFFERENTIAL AUTO Routine 08/19/2018 12: 49 PM CDT Iron deficiency anemia due to chronic blood loss Erythrocytosis CBC WITH AUTO DIFFERENTIAL Routine 08/19/2018 12:49 PM CDT Iron deficiency anemia due to chronic blood loss Erythrocytosis RETICULOCYTES Routine 08/19/2018 12:49 PM CDT Iron deficiency anemia due to chronic blood loss Erythrocytosis IRON PROFILE W/ IBC Routine 08/19/2018 1 2:43 PM CDT Iron deficiency anemia due to chronic blood loss Erythrocytosis FERRITIN Routine 08/19/2018 12:43 PM CDT Iron deficiency anemia due to chronic blood loss Erythrocytosis HEPATIC FUNCTION PANEL Routine 08/19/2018 12:43 PM CDT Crohn's disease of both small and large intestine without complication (CMS/HCC) documented in this encounter Results * Differential, auto (08/19/2018 12:49 PM CDT) Neutrophil abs 4.9 1.8 - 6.6 K/cumm [facility] Comment:Testing performed by : [facility], [address] [place] [phone] Lymphocyte abs 1.7 1.2 - 3.3 K/cumm [facility] Comment:Testing performed by : [address] [phone] Monocyte abs 0.7 0.2 - 1.2 K/cumm [facility] Comment:Testing performed by : [facility], [address] [place] [phone] Eosinophil abs 0.2 0.0 - 0.5 K/cumm [facility] Comment:Testing performed by : [address] [address] Basophil abs 0.1 0.0 - 0.2 K/cumm [facility] Comment:Testing performed by : [address] [phone] Neutrophil pct 64.4 % [facility] Comment: Interpretive Data Percent cell count reference ranges are not reported, since discordance with absolute values may lead to misinterpretation of CBC data. Current Interpretive Data was last revised on 2017. Testing performed by: [address] [phone] Lymphocyte pct 22.8 % [facility] Comment: Interpretive Data Percent cell count reference ranges are not reported, since discordance with absolute values may lead to misinterpretation of CBC data. Current Interpretive Data was last revised on 2017. Testing performed by: [facility], [address] [place] [phone] Monocyte pct 9.5 % [facility] Comment:Testing performed by : [facility], [address] [place] [phone] Eosinophil pct 2.6 % [facility] Comment:Testing performed by : [facility], [address] [place] [phone] Basophil pct 0.7 % [facility] Comment:Testing performed by : [facility], [address] [place] [phone] Blood specimen (specimen) 08/19/2018 12:49 PM CDT 08/19/2018 12:52 PM CDT Narrative [facility] - 08/19/2018 12:58 PM CDT Cristal Longoria BAKER APPRENTICE LAB BLOOD ORDERABLES Final Result Performing Organization Address City/State/[facility] Co de Phone Number [facility] Department [place] [address] * (ABNORMAL) CBC with auto differential (08/19/2018 12:49 PM CDT) WBC 7.6 3.8 - 9.8 K/cumm [facility] Comment:Testing performed by : [facility], [address] [place] [phone] Hgb 13.3(L) 13.8 - 17.2 g/dL [facility] Comment:Testing performed by : [facility], [address] [place] [phone] Hct 39.8(L) 40.7 - 50.3 % [facility] Comment:Testing performed by : [facility], [address] [place] [phone] Plt 189 140 - 440 K/cumm [facility] Comment:Testing performed by : [address] [address] MPV 7.2 6.8 - 10.4 fL [facility] Comment:Testing performed by : [facility], [address] [place] [phone] RBC 4.41(L) 4.50 - 5.70 M/cumm [facility] Comment:Testing performed by : [facility], [address] [place], [place] [phone] MCV 90.2 80.0 - 97.[address] [facility] Comment:Testing performed by : [facility], [address] [place], [place] [phone] MCH 30.2 26.7 - 33.[address] [facility] Comment:Testing performed by : [facility], [address] [place], [place] [phone] MCHC 33.5 32.7 - 35.5 g/dL [facility] Comment:Testing performed by : [facility], [address] [place], [place] [phone] RDW CV 15.7(H) 11.8 - 14.6 % [facility] Comment:Testing performed by : [facility], [address] [place] [phone] NRBC abs 0.01 0.00 - 0.01 K/cumm [facility] Comment:Testing performed by : [facility], [address] [place] [phone] Blood specimen (specimen) 08/19/2018 12:49 PM CDT 08/19/2018 12:52 PM CDT Narrative [facility] - 08/19/2018 12:58 PM CDT Cristal Longoria BAKER APPRENTICE LAB BLOOD ORDERABLES Final Result [facility] Department [place] [address] * (ABNORMAL) Reticulocyte Count (08/19/2018 12:49 PM CDT) Retics, absolute 0.208(H) 0.020 - 0.087 M/cumm [facility] Comment:Testing performed by : [facility], [address] [place] [phone] Retics 4.73(H) 0.50 - 1.80 % [facility] Comment:Testing performed by : [facility], [address] [place] [phone] Blood specimen (specimen) 08/19/2018 12:49 PM CDT 08/19/2018 12:52 PM CDT Narrative [facility] - 08/19/2018 12:58 PM CDT us Cristal Longoria BAKER APPRENTICE LAB BLOOD ORDERABLES Final Result [facility] [employer] ([employer] [place] [address] * Hepatic function panel (08/19/2018 12:43 PM CDT) Bilirubin, total 0.6 0.1 - 1.2 mg/dL [facility] Bilirubin, direct <0.2 0.1 - 0.3 mg/dL [facility] Protein, pl 6.8 6.5 - 8.5 g/dL [facility] Albumin 4.1 3.5 - 5.0 g/dL [facility] Alk phos 83 40 - 130 Units/L [facility] ALT 32 7 - 55 Units/L [facility] AST 36 10 - 50 Units/L [facility] Blood specimen (specimen) 08/19/2018 12:43 PM CDT 08/19/2018 1:26 PM CDT Narrative [facility] - 08/19/2018 2:07 PM CDT Please fax lab results to [phone] us Roxanna Valenzuela MD LAB BLOOD ORDERABLE S Final Result [facility] [place] [address] * Ferritin (08/19/2018 12:43 PM CDT) Pathologist [facility] Ferritin 321 30 - 400 ng/mL [facility] Blood specimen (specimen) 08/19/2018 12:43 PM CDT 08/19/2018 1:26 PM CDT Narrative [facility] - 08/19/2018 2:02 PM CDT Cristal Longoria BAKER APPRENTICE LAB BLOOD ORDERABLES Final Result Performing Organization Address [facility] Co de Phone Number [facility] [employer] ([employer] [place] [address] * (ABNORMAL) Iron profile w/ IBC (08/19/2018 12:43 PM CDT) Iron 72 50 - 150 mcg/dL [facility] TIBC 242(L) 250 - 400 mcg/dL [facility] Transferrin saturation 30 20 - 50 % [facility] Blood specimen (specimen) 08/19/2018 12:43 PM CDT 08/19/2018 1:26 PM CDT Narrative [facility] - 08/19/2018 9:48 PM CDT Cristal Longoria BAKER APPRENTICE LAB BLOOD ORDERABLES Final Result Performing Organization Address [facility] [place] [address] documented in this encounter Visit Diagnoses Diagnosis [...] rst Ordered Date ONCBCN LAB APPOINTMENT 1 08/19/2018 documented in this encounter Care Teams Band Bias Machine Operator Relationship Specialty Start Date End Date Luis Maya MD [address] [place] [address] PCP - General 07/23/16 03/17/19 documented as of this encounter
--- OUTSIDE RECORDS SUMMARY | 2024-05-18 22:17 | XMS_ITS | Encounter Summary ---
Author Organization [facility] Facility Care Team Providers Care Greenhouse Manager Name Role Phone Unavailable Primary Care Provider Unavailabl e Encounter Details Date Type Department Care Team (Late st Contact Info) Description 06/15/2016 3:42 PM AUTOMATIC FURNACE OPERATOR - 06/15/2016 11:59 PM [facility] Hospital Encounter [facility] Luis Romero MD [facility] [place] [address] Other fatigue Social History Tobacco Use Types Packs/Day Years Used Date Smoking Tobacco: Never Assessed Sex and Gender Information Value Date Recorded Sex Assigned at Not on file Legal Sex Male 1:20 AM AUTOMATIC FURNACE OPERATOR Gender Identity Not on file Sexual Orientation Not on file documented as of this encounter Medications at Time of Discharge adalimumab (HUMIRA PEN) 40 mg/0.8 mL pen injector kit INJECT THE CONTENTS OF ONE PEN (40 MG) SUBCUTANEOUSLY EVERY 14 DAYS (safety labs due every 3 months Due 11/2017) 05/02/2016 8 documented as of this encounter Plan of Treatment Upcoming Encounters Date Type Department Care Team (Late st Contact Info) Description 05/22/2024 10:45 AM AUTOMATIC FURNACE OPERATOR Hospital Encounter [facility] Endoscopy [address] [address] Nikolay Boucher MD [address] [place] [address] 05/22/2024 10:45 AM AUTOMATIC FURNACE OPERATOR - 05/22/2024 11:15 AM AUTOMATIC FURNACE OPERATOR Surgery [facility] Endoscopy [address] [address] Nikolay Boucher MD [address] [place] [address] EGD Scheduled Procedures Name Priority Associated Diagnoses Date/Ti me ESOPHAGOGASTRODUODENOSCOPY Crohn's disease of both small and large intestine with intestinal obstruction (HCC) 05/22/2024 10:45 AM AUTOMATIC FURNACE OPERATOR documented as of this encounter Procedures Procedure Name Priority Date/Time Associated Diagnosis Comments SERUM ZINC Routine 06/15/2016 3:53 PM AUTOMATIC FURNACE OPERATOR SERUM FOLIC ACID Routine 06/15/2016 3:53 PM AUTOMATIC FURNACE OPERATOR SERUM FERRITIN Routine 06/15/2016 3:53 PM AUTOMATIC FURNACE OPERATOR SERUM 25-HYDROXYCHOLECALCI FEROL (VITAMIN D) Routine 06/15/2016 3:53 PM AUTOMATIC FURNACE OPERATOR PLASMA BASIC METABOLIC PANEL Routine 06/15/2016 3:53 PM AUTOMATIC FURNACE OPERATOR DISCHARGE LABORATORY CUMULATIVE REPORT 06/15/2016 documented in this encounter Results * Serum 25-hydroxycholecalciferol (vitamin D) (06/15/2016 3:53 PM AUTOMATIC FURNACE OPERATOR) 25-OH Vit D 30 30 - 100 ng/ml CDR HISTORICAL RESULTS Serum 06/15/2016 3:53 PM AUTOMATIC FURNACE OPERATOR us Luis Maya MD LAB BLOOD ORDERABLES Final Res ult CDR HISTORICAL RESULTS * (ABNORMAL) Plasma basic metabolic panel (06/15/2016 3:53 PM AUTOMATIC FURNACE OPERATOR) Sodium 142 135 - 145 mmol/L CDR HISTORICAL RESULTS K, pl 3.5 3.3 - 4.9 mmol/L CDR HISTORICAL RESULTS Comment: Hemolyzed; (++); potassium value may be falsely elevated by as much as 0.3 - 0.5 mmol/L. Suggest redraw and reanalysis. Chloride 101 97 - 110 mmol/L CDR HISTORICAL RESULTS CO2 28 22 - 32 mmol/L CDR HISTORICAL RESULTS BUN 15 8 - 25 mg/dl CDR HISTORICAL RESULTS Glucose 119 70 - 199 mg/dl CDR HISTORICAL RESULTS Creatinine 1.45(H) 0.80 - 1.30 mg/dl CDR HISTORICAL RESULTS Calcium 8.8 8.5 - 10.3 mg/dl CDR HISTORICAL RESULTS A. gap 13 2 - 15 mmol/L CDR HISTORICAL RESULTS Plasma 06/15/2016 3:53 PM AUTOMATIC FURNACE OPERATOR Luis Maya MD LAB BLOOD ORDERABLES Final Res ult Performing Organization Address [facility] de Phone Number CDR HISTORICAL RESULTS * Serum ferritin (06/15/2016 3:53 PM AUTOMATIC FURNACE OPERATOR) Ferritin 145 30 - 400 ng/ml CDR HISTORICAL RESULTS Serum 06/15/2016 3:53 PM AUTOMATIC FURNACE OPERATOR Luis Maya MD LAB BLOOD ORDERABLES Final Res ult Performing Organization Address [facility] de Phone Number CDR HISTORICAL RESULTS * Serum folic acid (06/15/2016 3:53 PM AUTOMATIC FURNACE OPERATOR) Folic acid See Comment 4.8 - 24.2 mcg/L CDR HISTORICAL RESULTS Comment:{CRDT, Hemolyzed Res ults Unreliable} Serum 06/15/2016 3:53 PM AUTOMATIC FURNACE OPERATOR us Luis Maya MD LAB BLOOD ORDERABLES Final Res ult Performing Organization Address [facility] de Phone Number CDR HISTORICAL RESULTS * (ABNORMAL) Serum zinc (06/15/2016 3:53 PM AUTOMATIC FURNACE OPERATOR) Zinc 0.54(L) 0.66 - 1.10 mcg/ml CDR HISTORICAL RESULTS Comment: ADDITIONAL INFORMATION This test was developed and its performance characteristics determined by [facility] in a manner consistent with CLIA requirements. This test has not been cleared or approved by the U.S. Food and Drug Administration. Test Performed by: [facility] [place] [address] Supervisor Braiding: Tanner Velasquez II, M.D., Ph.D. Serum 06/15/2016 3:53 PM AUTOMATIC FURNACE OPERATOR Luis Maya MD LAB BLOOD ORDERABLES Final Res ult CDR HISTORICAL RESULTS * DISCHARGE LABORATORY CUMULATIVE REPORT (06/15/2016) Narrative 06/15/2016 Ordered by an unspecified provider. Historical Provider LAB BLOOD ORDERABLES Ibeth l Result documented in this encounter Visit Diagnoses Diagnosis Other fatigue Crohn's disease of both small and large intestine with intestinal obstruction (HCC) documented in this encounter
--- OUTSIDE RECORDS SUMMARY | 2024-05-18 22:17 | XMS_ITS | Encounter Summary ---
Author Organization [facility] Address [address] [place] [address] Phone Care Team Providers Care Cath Lab Name Role Phone Luis Maya MD Primary Care Provider [phone] Encounter Details Date Type Department Care Team (Late st Contact Info) Description 09/15/2018 Orders Only [facility] Gastroenterology [address] [facility] 8th [place] [address] [place] [phone] Nya Hand RN Social History Tobacco Use Types Packs/Day Years Used Date Smoking Tobacco: Never Smokeless Tobacco: Never Sex and Gender Information Value Date Recorded Sex Assigned at Not on file Legal Sex Male 1:20 AM COAT EXAMINER Gender Identity Not on file Sexual Orientation Not on file documented as of this encounter Ordered Prescriptions Prescription Sig Dispense Quantity Refills Last Filled Start Date End Date ergocalciferol (VITAMIN D) 50,000 unit capsule Take 1 cap PO one day a month 12 capsule 09/15/2018 02/10/2021 documented in this encounter Plan of Treatment Upcoming Encounters Date Type Department Care Team (Late st Contact Info) Description 05/22/2024 10:45 AM COAT EXAMINER Hospital Encounter [facility] Endoscopy [address] [place] [address] Nikolay Boucher MD [address] [place] [address] 05/22/2024 10:45 AM COAT EXAMINER - 05/22/2024 11:15 AM COAT EXAMINER Surgery [facility] Endoscopy [address] [address] Nikolay Boucher MD [address] [place] [address] EGD Scheduled Procedures Name Priority Associated Diagnoses Date/Ti dc ESOPHAGOGASTRODUODENOSCOPY Crohn's disease of both small and large intestine with intestinal obstruction (HCC) 05/22/2024 10:45 AM COAT EXAMINER documented as of this encounter Visit Diagnoses Not on filedocumented in this encounter Discontinued Medications Medication Sig Discontinue Reason Start Date End Da te ergocalciferol (VITAMIN D) 50,000 unit capsule TK ONE C PO Q MONTH UTD Reorder 11/25/2017 09/15/2018 documented as of this encounter Care Teams Cath Lab Relationship Specialty Start Date End Date Luis Maya MD [facility] [place] [address] PCP - General 07/23/16 03/17/19 documented as of this encounter
--- OUTSIDE RECORDS SUMMARY | 2024-05-18 22:17 | XMS_ITS | Encounter Summary ---
Author Organization [facility] Address [address] [place] [address] Phone Care Team Providers Care Pneumatic System Conveyor Operator Name Role Phone Luis Maya MD Primary Care Provider [phone] Encounter Details Date Type Department Care Team (Late st Contact Info) Description 01/31/2018 8:00 AM CDT Office Visit [facility] [address] [facility] Advanced Medicine 8th [place] [address] [place] [address] Claudia Mcclendon, JODIE [address] [place] [address] Crohn's disease of both small and large intestine with intestinal obstruction (CMS/HCC) (Primary Dx); Vitamin D deficiency Social History Tobacco Use Types Packs/Day Years Used Date Smoking Tobacco: Never Smokeless Tobacco: Never Sex and Gender Information Value Date Recorded Sex Assigned at Not on file Legal Sex Male 1:20 AM ENROLLMENT SPECIALIST Gender Identity Not on file Sexual Orientation Not on file documented as of this encounter Last Filed Vital Signs Vital Sign Reading Time Taken Comments Blood Pressure 144/85 01/31/2018 7:58 AM CDT Pulse 78 01/31/2018 7:58 AM CDT Temperature 37.1 ??C (98.8 ??F) 01/31/2018 7:58 AM CD T Respiratory Rate - - Oxygen Saturation - - Inhaled Oxygen Concentration - - Weight 97.1 kg (214 lb) 01/31/2018 7:58 AM CDT Height 185.4 cm (6' 1 ) 01/31/2018 7:58 AM CDT Body Mass Index 28.23 01/31/2018 7:58 AM CDT documented in this encounter Patient Instructions * Patient Instructions* Nya Hand RN - 01/31/2018 8:00 AM CDT documented in this encounter Progress Notes * Claudia Mcclendon NP - 01/31/2018 8:00 AM CDT REASON FOR VISIT: Follow-up for stricturing ileocolonic Crohn's disease CURRENT MEDICATIONS: Humira 40 mg every 2 weeks, Xanax, Cialis, B12 1000 mcg monthly, ergocalciferol 64406 units, folic acid 1 mg daily, hydrochlorothiazide daily, Levsin, Cozaar, ondansetron p.r.n.,testosterone, Ambien PROBLEM LIST: 1. Ileocolonic Crohn's disease diagnosed [...] Low testosterone HISTORY OF PRESENT ILLNESS: Mello is a 52-year-old male with a past medical history of stricturing Crohn's disease whopresents today for routine follow-up. The patient was last seen in clinic on 11/20/2016 at which time he had been 15 months since his last visit. Patient at that time was not reporting any issues stated that he does get nervous when he travels a and would feel more comfortable with a prescription for budesonide. He was advised to repeat his colonoscopy which was performed on 03/18/2017 and showed a healthy and patent anastomosis in the proximal transverse colon, health we neoterminal ileum and colon. The prep was less than ideal. Patient presents today reporting that he continues to do well and has no anticipation of his Humira. Continues to have periods of significant arthralgias and is felt that if he spends a substantial amount of time in the sun (generally while fishing) his pains seem to resolve. He is uncertain if this is related to his vitamin-D levels which are typically very low even on lots of medication or if it is related to the sun self. He denies any rashes to suggest psoriasis. He states that his stool frequency remains stable with no hematochezia or obstructive symptoms. He states that he always has a fairly high stool frequency since his surgeries but can control it if he avoids eating. He will occasionally use Imodium or Lomotil. He has not tried taking numb both from the same day REVIEW OF SYSTEMS: As per HPI, all other systems negative PHYSICAL EXAM: BP 144/85 Pulse 78 Temp 37.1 ??C (98.8 ??F) Ht 185.4 cm (6' 1 ) Wt 97.1 kg (214 lb) BMI 28.23 kg/m?? General: well nourished, well developed, in no acute cardiopulmonary distress HEENT: Sclera anicterus. Conjunctiva pink. Orapharynx clear and moist. Pulmonary: Clear to auscultation bilaterally. Cardiovascular: Regular rate and rhythm. Normal S1 and S2. No murmur. Abdomen: Normal bowel sounds. Soft. No tenderness or rebound pain. No distention. Well-healed surgical scars Skin: No rash or worrisome lesions Neurological: Alert and oriented with no focal deficits ASSESSMENT AND PLAN: Mello is a 52-year-old male with past medical history of stricturing Crohn's disease who presents today for routine follow-up. 1. Crohn's disease. Patient was noted to be in remission on his most recent colonoscopy from February of last year. We would like him to remain on Humira for the foreseeable future. Should he ever lose response to Humira we would likely move forward with Alejandro trevino rather than Matias. He is encouraged to get routine blood work today and every 3 months. 2. Colon cancer risk given the duration of disease and his propensity to form strictures, we would recommend that he have a repeat colonoscopy in February of 2019. We reiterated the importance of colonoscopy as a preventative measure as well as a screening 3. Vitamin-D deficiency. We will recheck the patient's vitamin-D status today. If it remains low hemay benefit from liquid vitamin-D consumed with a fatty food to promote better absorption. If he continues to have difficulty we may need to refer him to an paraprofessional aide or bone specialist. Happily his previous DEXA was normal 4. Healthcare maintenance. Given the patient's significant sun exposure, we would recommend that heconsider seeing a gleason operator routinely. Would also recommend that he get vaccinated for flu, Prevnar, Pneumovax, and Shigrix. Patient was given ample opportunity to ask questions and have them answered. We would like him to return in [address] Valenzuela. documented in this encounter Plan of Treatment Upcoming Encounters Date Type Department Care Team (Late st Contact Info) Description 05/22/2024 10:45 AM [facility] Hospital Encounter [facility] Endoscopy [address] [address] Nikolay Boucher MD [address] [place] [address] 05/22/2024 10:45 AM ENROLLMENT SPECIALIST - 05/22/2024 11:15 AM [facility] Surgery [facility] Endoscopy [address] [address] Nikolay Boucher MD [address] [place] [address] EGD Scheduled Procedures Name Priority Associated Diagnoses Date/Ti me ESOPHAGOGASTRODUODENOSCOPY Crohn's disease of both small and large intestine with intestinal obstruction (HCC) 05/22/2024 10:45 AM ENROLLMENT SPECIALIST documented as of this encounter Results * (ABNORMAL) Vitamin D 25 hydroxy (01/31/2018 9:10 AM CDT) Pathologist [facility] Vitamin D 21.5(L) 30.0 - 100.0 ng/mL [facility] Comment: VITAMIN D DEFICIENCY = LESS THAN 20 ng/mL) ? VITAMIN D INSUFFICIENCY = LESS THAN 30 ng/mL ? RECOMMENDED NORMAL RANGE = 30-100 ng/mL Blood specimen (specimen) 01/31/2018 9:10 AM CDT 01/31/2018 10:35 AM CDT Claudia Mcclendon ENVIRONMENTAL TECHNICIAN LAB [facility]LOOD [facility] Final Result Performing Organization Address [facility] de Phone Number [facility] * Hepatic function panel (01/31/2018 9:10 AM CDT) Pathologist [facility] Direct Bilirubin 0.19 0.00 - 0.30 mg/dL [...] CDT 01/31/2018 10:35 AM CDT Claudia Mcclendon ENVIRONMENTAL TECHNICIAN LAB BLOOD ORDE RABLES Final Result Performing Organization Address [facility] Co de Phone Number [facility] * (ABNORMAL) CBC with auto differential (01/31/2018 9:10 AM CDT) White Blood Count 9.1 3.6 - 11.2 [...] 01/31/2018 10:35 AM CDT us Claudia Mcclendon NP LAB BLOOD REMEDIOS MCCURDY Final Result [facility] * TB test, T-SPOT (01/31/2018 8:58 AM CDT) IFN-Gamma Release Assay TB Negative [facility] Comment: See scanned result in Medical Record. Interpretive Data Testing performed by [employer], [address] [id number] Current Interpretive Data was last revised 2014 Blood specimen (specimen) 01/31/2018 8:58 AM CDT 01/31/2018 12:49 PM CDT Narrative [facility] - 02/02/2018 7:37 PM CDT us Claudia Mcclendon NP LAB MICROBIOLO GY - GENERAL ORDERABLES Final Result [facility] One [facility] Department [place] [address] documented in this encounter Visit Diagnoses Diagnosis Crohn's disease of both small and large intestine with intestinal obstruction (HCC)- Primary Vitamin D deficiency Crohn's disease of both small and large intestine with intestinal obstruction (HCC) Crohn's disease of both small and large intestine with intestinal obstruction (HCC) documented in this encounter Care Teams Pneumatic System Conveyor Operator Relationship Specialty Start Date End Date Luis Maya MD [facility] [place] [address] PCP - General 07/23/16 03/17/19 documented as of this encounter
--- OUTSIDE RECORDS SUMMARY | 2024-05-18 22:17 | XMS_ITS | Encounter Summary ---
Author Organization [facility] Address [address] [place] [address] Phone Care Team Providers Care Product Safety Test Engineer Name Role Phone Luis Maya MD Primary Care Provider [phone] Encounter Details Date Type Department Care Team (Late st Contact Info) Description 10/08/2018 Orders Only [facility] [address] [facility] Advanced [facility] 8th [place] [address] [place] [id number] Nya Hand, RN Crohn's disease of both small and large intestine with fistula (CMS/HCC) (Primary Dx); Thrush of mouth and esophagus (CMS/HCC) Social History Tobacco Use Types Packs/Day Years Used Date Smoking Tobacco: Never Smokeless Tobacco: Never Sex and Gender Information Value Date Recorded Sex Assigned at Not on file Legal Sex Male 1:20 AM TOBACCO SCRAP SIFTER Gender Identity Not on file Sexual Orientation Not on file documented as of this encounter Ordered Prescriptions Prescription Sig Dispense Quantity Refills Last Filled Start Date End Date nystatin 100,000 unit/mL suspensionIndicati ons:Thrush of mouth and esophagus (CMS/HCC) (HCC) Take 5 mL (500,000 Units total) by mouth 4 (four) times a day for 14 days Swish & swallow 280 mL 10/08/2018 05 9 documented in this encounter Plan of Treatment Upcoming Encounters Date Type Department Care Team (Late st Contact Info) Description 05/22/2024 10:45 AM TOBACCO SCRAP SIFTER Hospital Encounter [facility] Endoscopy [address], [place] [address] Nikolay Boucher MD [address] [place] [address] 05/22/2024 10:45 AM TOBACCO SCRAP SIFTER - 05/22/2024 11:15 AM TOBACCO SCRAP SIFTER Surgery [facility] Endoscopy [address], [place] [address] Nikolay Boucher MD [address] [place] [address] EGD Scheduled Procedures Name Priority Associated Diagnoses Date/Ti ar ESOPHAGOGASTRODUODENOSCOPY Crohn's disease of both small and large intestine with intestinal obstruction (HCC) 05/22/2024 10:45 AM TOBACCO SCRAP SIFTER documented as of this encounter Visit Diagnoses Diagnosis Crohn's disease of both small and large intestine with fistula (HCC)- Primary Thrush of mouth and esophagus (CMS/HCC) (HCC) Candidiasis of the esophagus Crohn's disease of both small and large intestine with intestinal obstruction (HCC) documented in this encounter Care Teams Product Safety Test Engineer Relationship Specialty Start Date End Date Luis Maya MD [facility] [place] [address] PCP - General 07/23/16 03/17/19 documented as of this encounter
--- OUTSIDE RECORDS SUMMARY | 2024-05-18 22:17 | XMS_ITS | Encounter Summary ---
Author Organization [facility] Facility Care Team Providers Care Dental Director Name Role Phone Unavailable Primary Care Provider Unavailabl e Encounter Details Date Type Department Care Team (Latest Contact Info) Description 02/08/2016 9:43 AM CDT - 02/10/2016 11:59 PM T Hospital Encounter [facility] Eleanor Bautista MD [address] [place] [address] Iron deficiency anemia due to chronic blood loss; Crohn's disease of both small and large intestine with complication (CMS/HCC); Other residential (current) drug therapy Social History Tobacco Use Types Packs/Day Years Used Date Smoking Tobacco: Never Assessed Sex and Gender Information Value Date Recorded Sex Assigned at Not on file Legal Sex Male 1:20 AM CARTOON ANIMATOR Gender Identity Not on file Sexual Orientation Not on file documented as of this encounter Plan of Treatment Upcoming Encounters Date Type Department Care Team (Late st Contact Info) Description 05/22/2024 10:45 AM CARTOON ANIMATOR Hospital Encounter [facility] Endoscopy [address] [address] Nikolay Boucher MD [address] [place] [address] 05/22/2024 10:45 AM CARTOON ANIMATOR - 05/22/2024 11:15 AM CARTOON ANIMATOR Surgery [facility] Endoscopy [address] [address] Nikolay Boucher MD [address] [place] [address] EGD Scheduled Procedures Name Priority Associated Diagnoses Date/Ti me ESOPHAGOGASTRODUODENOSCOPY Crohn's disease of both small and large intestine with intestinal obstruction (HCC) 05/22/2024 10:45 AM CARTOON ANIMATOR documented as of this encounter Procedures Procedure Name Priority Date/Time Associated Diagnosis Comments BLOOD RETICULOCYTE COUNT Routine 02/10/2016 1:11 PM CDT BLOOD CELL COUNT Routine 02/10/2016 1:11 PM CDT SERUM IRON PROFILE Routine 02/10/2016 1: 00 PM CDT SERUM FERRITIN Routine 02/10/2016 1:00 PM CDT PLASMA HEPATIC FUNCTION PANEL Routine 02/10/2016 1:00 PM CDT BLOOD RETICULOCYTE COUNT Routine 02/09/2016 2:13 PM CDT BLOOD CELL COUNT Routine 02/09/2016 2:13 PM CDT SERUM FERRITIN Routine 02/09/2016 12:00 PM CDT DISCHARGE LABORATORY CUMULATIVE REPORT 02/08/2016 documented in this encounter Results * (ABNORMAL) Blood reticulocyte count (02/10/2016 1:11 PM CDT) Retics 1.6(H) 0.5 - 1.5 % CDR HIST ORICAL RESULTS Blood specimen (specimen) 02/10/2016 1:11 PM CDT Eleanor Ramon MD LAB BLOOD ORDERABLES Final Result CDR HISTORICAL RESULTS * (ABNORMAL) Blood cell count [CBC] panel, 7 CAM (02/10/2016 1:11 PM CDT) WBC 8.7 3.8 - 9.8 K/cumm CDR HISTORICAL RESULTS RBC 5.30 4.50 - 5.70 M/cumm CDR HISTORICAL RESULTS Hgb 15.1 13.8 - 17.2 g/dl CDR HISTORICAL RESULTS Hct 46.1 40.7 - 50.3 % CDR HISTORICAL RESULTS MCV 87.1 80.0 - 97.6 fl CDR HISTORICAL RESULTS MCH 28.5 26.7 - 33.7 pg CDR HISTORICAL RESULTS MCHC 32.8 32.7 - 35.5 g/dl CDR HISTORICAL RESULTS Rdw 14.3 11.8 - 14.6 % CDR HISTORICAL RESULTS Platelets 205 140 - 440 K/cumm CDR HISTORICAL RESULTS MPV 7.6 6.8 - 10.4 fl CDR HISTORICAL RESULTS Neutrophils 72.6 38.7 - 74.5 % CDR HISTORICAL RESULTS Lymphocytes 17.1(L) 20.0 - 54.3 % CDR HISTORICAL RESULTS Monos 7.9 4.3 - 13.5 % CDR HISTORICAL RESULTS Eosinophils 1.8 0.0 - 6.0 % CDR HISTORICAL RESULTS Basophils 0.6 0.0 - 3.0 % CDR HISTORICAL RESULTS Neutrophils, abs 6.3 1.8 - 6.6 K/cumm CDR HISTORICAL RESULTS Lymphocytes, abs 1.5 1.2 - 3.3 K/cumm CDR HISTORICAL RESULTS Monocytes, absolute 0.7 0.2 - 1.2 K/cumm CDR HISTORICAL RESULTS Eosinophils, abs 0.2 0.0 - 0.5 K/cumm CDR HISTORICAL RESULTS Basophils, abs 0.1 0.0 - 0.2 K/cumm CDR HISTORICAL RESULTS Blood specimen (specimen) 02/10/2016 1:11 PM CDT us Eleanor Ramon MD LAB BLOOD ORDERABLES Final Result CDR HISTORICAL RESULTS * Serum iron profile (02/10/2016 1:00 PM CDT) Iron 61 50 - 150 mcg/dl CDR HISTORICAL RESULTS UIBC See Comment 112 - 347 mcg/dl CDR HISTORICAL RESULTS Comment:{CRDT; Hemolyzed Spe cimen} TIBC See Comment 250 - 400 mcg/dl CDR HISTORICAL RESULTS Comment:{CRDT; Hemolyzed Spe cimen} Transferrin saturation See Comment 20 - 50 % CDR HISTORICAL RESULTS Comment:{CRDT; Hemolyzed Spe cimen} Serum 02/10/2016 1:00 PM CDT Eleanor Ramon MD LAB BLOOD ORDERABLES Final Result Performing Organization Address [facility] de Phone Number CDR HISTORICAL RESULTS * Plasma hepatic function panel (02/10/2016 1:00 PM CDT) Protein, pl 7.2 6.5 - 8.5 g/dl CDR HISTORICAL RESULTS Alb 4.2 3.5 - 5.0 g/dl CDR HISTORICAL RESULTS Bilirubin 0.7 0.1 - 1.2 mg/dl CDR HISTORICAL RESULTS Bilirubin, direct 0.2 0.0 - 0.3 mg/dl CDR HISTORICAL RESULTS Alk phos 83 40 - 130 Units/L CDR HISTORICAL RESULTS AST 29 10 - 50 Units/L CDR HISTORICAL RESULTS ALT 17 7 - 55 Units/L CDR HISTORICAL RESULTS Plasma 02/10/2016 1:00 PM CDT Eleanor Ramon MD LAB BLOOD ORDERABLES Final Result Performing Organization Address [facility] de Phone Number CDR HISTORICAL RESULTS * (ABNORMAL) Serum ferritin (02/10/2016 1:00 PM CDT) Ferritin 16(L) 30 - 400 ng/ml CDR HISTORICAL RESULTS Serum 02/10/2016 1:00 PM CDT Eleanor Ramon MD LAB BLOOD ORDERABLES Final Result Performing Organization Address [facility] de Phone Number CDR HISTORICAL RESULTS * (ABNORMAL) Blood reticulocyte count (02/09/2016 2:13 PM CDT) Retics 1.8(H) 0.5 - 1.5 % CDR HIST ORICAL RESULTS Blood specimen (specimen) 02/09/2016 2:13 PM CDT Eleanor Ramon MD LAB BLOOD ORDERABLES Final Result CDR HISTORICAL RESULTS * Blood cell count [CBC] panel, 7 CAM (02/09/2016 2:13 PM CDT) MCV 86.5 80.0 - 97.6 fl CDR HISTORICAL RESULTS WBC 8.8 3.8 - 9.8 K/cumm CDR HISTORICAL RESULTS MCH 28.5 26.7 - 33.7 pg CDR HISTORICAL RESULTS RBC 5.22 4.50 - 5.70 M/cumm CDR HISTORICAL RESULTS MCHC 33.0 32.7 - 35.5 g/dl CDR HISTORICAL RESULTS Hgb 14.9 13.8 - 17.2 g/dl CDR HISTORICAL RESULTS Rdw 14.1 11.8 - 14.6 % CDR HISTORICAL RESULTS Hct 45.2 40.7 - 50.3 % CDR HISTORICAL RESULTS Platelets 237 140 - 440 K/cumm CDR HISTORICAL RESULTS MPV 7.9 6.8 - 10.4 fl CDR HISTORICAL RESULTS Neutrophils 64.3 38.7 - 74.5 % CDR HISTORICAL RESULTS Lymphocytes 21.0 20.0 - 54.3 % CDR HISTORICAL RESULTS Monos 10.7 4.3 - 13.5 % CDR HISTORICAL RESULTS Eosinophils 3.0 0.0 - 6.0 % CDR HISTORICAL RESULTS Basophils 1.0 0.0 - 3.0 % CDR HISTORICAL RESULTS Neutrophils, abs 5.7 1.8 - 6.6 K/cumm CDR HISTORICAL RESULTS Lymphocytes, abs 1.9 1.2 - 3.3 K/cumm CDR HISTORICAL RESULTS Monocytes, absolute 1.0 0.2 - 1.2 K/cumm CDR HISTORICAL RESULTS Eosinophils, abs 0.3 0.0 - 0.5 K/cumm CDR HISTORICAL RESULTS Basophils, abs 0.1 0.0 - 0.2 K/cumm CDR HISTORICAL RESULTS Blood specimen (specimen) 02/09/2016 2:13 PM CDT Eleanor Ramon MD LAB BLOOD ORDERABLES Final Result CDR HISTORICAL RESULTS * (ABNORMAL) Serum ferritin (02/09/2016 12:00 PM CDT) Ferritin 17(L) 30 - 400 ng/ml CDR HISTORICAL RESULTS Serum 02/09/2016 12:0 0 PM CDT us Eleanor Ramon MD LAB BLOOD ORDERABLES Final Result CDR HISTORICAL RESULTS * DISCHARGE LABORATORY CUMULATIVE REPORT (02/08/2016) Narrative 02/08/2016 Ordered by an unspecified provider. us Historical Provider LAB BLOOD ORDERABLES Ibeth l Result documented in this encounter Visit Diagnoses Diagnosis Iron deficiency anemia due to chronic blood loss Iron deficiency anemia secondary to blood loss (chronic) Crohn's disease of both small and large intestine with complication (HCC) Other ground nuclear weapons assembly officer (current) drug therapy Crohn's disease of both small and large intestine with intestinal obstruction (HCC) documented in this encounter
--- OUTSIDE RECORDS SUMMARY | 2024-05-18 22:17 | XMS_ITS | Encounter Summary ---
Author Organization [facility] Healthcare Address [address] [place] [address] Care Team Providers Care Manager Beverage Name Role Phone Luis Maya MD Primary Care Provider [phone] Encounter Details Date Type Department Care Team (Late st Contact Info) Description 12/20/2016 9:14 AM CDT - 12/20/2016 11:59 PM CDT Hospital Encounter [facility] [phone] Roxanna Valenzuela MD [address] [address] [place], [place] [id number] Discharge Disposition: Discharge to home or self care Social History Tobacco Use Types Packs/Day Years Used Date Smoking Tobacco: Never Assessed Sex and Gender Information Value Date Recorded Sex Assigned at Not on file Legal Sex Male 1:20 AM WRAPPER LAYER Gender Identity Not on file Sexual Orientation [...] Due 11/2017) 05/02/2016 08/31/201 8 vit A-vit L-ztln-lborfoze 15 mg lozenge Take 1 tablet by mouth as needed 10/12/2016 2 documented as of this encounter Discharge Disposition Disposition Code Departure Means Destination Discharge to home or self care documented in this encounter Plan of Treatment Upcoming Encounters Date Type Department Care Team (Late st Contact Info) Description 05/22/2024 10:45 AM WRAPPER LAYER Hospital Encounter [facility] Endoscopy [address] [place] [address] Nikolay Boucher MD [address] [place] [address] 05/22/2024 10:45 AM WRAPPER LAYER - 05/22/2024 11:15 AM WRAPPER LAYER Surgery [facility] Endoscopy [address] [place] [address] Nikolay Boucher MD [address] [place] [address] EGD Scheduled Procedures Name Priority Associated Diagnoses Date/Ti me ESOPHAGOGASTRODUODENOSCOPY Crohn's disease of both small and large intestine with intestinal obstruction (HCC) 05/22/2024 10:45 AM WRAPPER LAYER documented as of this encounter Procedures Procedure Name Priority Date/Time Associated Diagnosis Comments INTERFERON GAMMA RELEASE ASSAY TB Routine Gen Lab 12/20/2016 12:19 PM CDT REFERENCE LABORATORY MISCELLANEOUS TESTING 12/20/2016 12:00 AM CDT DISCHARGE LABORATORY CUMULATIVE REPORT 12/20/2016 12:00 AM CDT documented in this encounter Results * Interferon Gamma Release Assay TB (12/20/2016 12:19 PM CDT) Pathologist [facility] IFN-Gamma Release Assay TB Negative [facility] Comment: Interpretive Data Testing performed by [employer], [id number] [id number] Current Interpretive Data was last revised 2014 Blood specimen (specimen) 12/20/2016 12:19 PM CDT 12/20/2016 2:27 PM CDT Roxanna Valenzuela MD LAB BLOOD ORDERABLE S Final Result [facility] One [facility] [place] [address] * DISCHARGE LABORATORY CUMULATIVE REPORT (12/20/2016 12:00 AM CDT) Narrative 12/20/2016 12:00 AM CDT Ordered by an unspecified provider. Historical Provider LAB BLOOD ORDERABLES Ibeth l Result * REFERENCE LABORATORY MISCELLANEOUS TESTING (12/20/2016 12:00 AM CDT) Narrative 12/20/2016 12:00 AM CDT Ordered by an unspecified provider. Historical Provider LAB BLOOD ORDERABLES Ibeth l Result documented in this encounter Visit Diagnoses Not on filedocumented in this encounter Care Teams Manager Beverage Relationship Specialty Start Date End Date Luis Maya MD [facility] [place] [address] PCP - General 07/23/16 03/17/19 documented as of this encounter
--- OUTSIDE RECORDS SUMMARY | 2024-05-18 22:17 | XMS_ITS | Encounter Summary ---
Author Organization [facility] Healthcare Address [address] [place] [address] Care Team Providers Care Accelerator Operator Name Role Phone Luis Maya MD Primary Care Provider [phone] Encounter Details Date Type Department Care Team (Late Contact Info) Description 07/01/2018 10:10 PM PROGRAM PROJECT ANALYST Lab [address] [id number] Social History Tobacco Use Types Packs/Day Years Used Date Smoking Tobacco: Never Smokeless Tobacco: Never Sex and Gender Information Value Date Recorded Sex Assigned at Not on file Legal Sex Male 1:20 AM PROGRAM PROJECT ANALYST Gender Identity Not on file Sexual Orientation Not on file documented as of this encounter Plan of Treatment Upcoming Encounters Date Type Department Care Team (Late Contact Info) Description 05/22/2024 10:45 AM PROGRAM PROJECT ANALYST Hospital Encounter [facility] [address] [facility] [place] [address] Nikolay Boucher MD [address] [place] [address] 05/22/2024 10:45 AM PROGRAM PROJECT ANALYST - 05/22/2024 11:15 AM PROGRAM PROJECT ANALYST Surgery [facility] [address] [place] [address] Nikolay Boucher MD [address] [place] [id number] EGD Scheduled Procedures Name Priority Associated Diagnoses Date/Ti me ESOPHAGOGASTRODUODENOSCOPY Crohn's disease of both small and large intestine with intestinal obstruction (HCC) 05/22/2024 10:45 AM PROGRAM PROJECT ANALYST documented as of this encounter Visit Diagnoses Not on filedocumented in this encounter Care Teams Accelerator Operator Relationship Specialty Start Date End Date Luis Maya MD [facility] [place] [address] PCP - General 07/23/16 03/17/19 documented as of this encounter
--- OUTSIDE RECORDS SUMMARY | 2024-05-18 22:17 | XMS_ITS | Encounter Summary ---
Author Organization [facility] Facility Care Team Providers Care Senior Unix Administrator Name Role Phone Unavailable Primary Care Provider Unavailabl e Encounter Details Date Type Department Care Team (Late st Contact Info) Description 06/15/2016 3:[address] - 06/15/2016 11:[address] WORKER Hospital Encounter [facility] Roxanna Irene MD [address] [place] [address] Crohn's disease of large intestine without complication (CMS/LTAC, [facility]IN [facility]) Social History Tobacco Use Types Packs/Day Years Used Date Smoking Tobacco: Never Assessed Sex and Gender Information Value Date Recorded Sex Assigned at Not on file Legal Sex Male 1:[address] Gender Identity Not on file Sexual [...] st Contact Info) Description 05/22/2024 10:[address] WORKER Hospital Encounter [facility] Endoscopy [address] [place] [address] Nikolay Boucher MD [address] [place] [address] 05/22/2024 10:[address] WORKER - 05/22/2024 11:[address] WORKER Surgery [facility] Endoscopy [address] [place] [address] Nikolay Boucher MD [address] [place] [address] EGD Scheduled Procedures Name Priority Associated Diagnoses Date/Ti me ESOPHAGOGASTRODUODENOSCOPY Crohn's disease of both small and large intestine with intestinal obstruction (HCC) 05/22/2024 10:[address]ER documented as of this encounter Procedures Procedure Name Priority Date/Time Associated Diagnosis Comments PLASMA HEPATIC FUNCTION PANEL Routine 06/15/2016 3:[address] WORKER BLOOD CELL COUNT (CBC) Routine 06/15/2016 3:[address] WORKER BLOOD CELL MORPHOLOGIC EXAM Routine 06/15/2016 3:[address] WORKER DISCHARGE LABORATORY CUMULATIVE REPORT 06/15/2016 documented in this encounter Results * Plasma hepatic function panel (06/15/2016 3:[address] WORKER) AST 43 10 - 50 Units/L CDR HISTORICAL RESULTS Comment:{Hemolyzed; result m ay be falsely elevated.} ALT 43 7 - 55 Units/L CDR HISTORICAL RESULTS Alk phos 87 40 - 130 Units/L CDR HISTORICAL RESULTS Bilirubin 0.8 0.1 - 1.2 mg/dl CDR HISTORICAL RESULTS Bilirubin, direct 0.2 0.1 - 0.3 mg/dl CDR HISTORICAL RESULTS Protein, pl 7.7 6.5 - 8.5 g/dl CDR HISTORICAL RESULTS Alb 4.6 3.5 - 5.0 g/dl CDR HISTORICAL RESULTS Plasma 06/15/2016 3:[address] Roxanna Valenzuela MD LAB BLOOD ORDERABLE S Final Result Performing Organization Address City/State/[facility] Co de Phone Number CDR HISTORICAL RESULTS * Blood cell count (CBC) (06/15/2016 3:[address] WORKER) WBC 9.3 3.8 - 9.9 K/cumm CDR HISTORICAL RESULTS RBC 5.52 4.30 - 5.80 M/cumm CDR HISTORICAL RESULTS Hgb 16.2 13.0 - 17.5 g/dl CDR HISTORICAL RESULTS Hct 48.1 38.9 - 50.3 % CDR HISTORICAL RESULTS MCV 87.1 81.3 - 96.4 fl CDR HISTORICAL RESULTS MCH 29.3 27.1 - 33.3 pg CDR HISTORICAL RESULTS MCHC 33.7 32.3 - 35.7 g/dl CDR HISTORICAL RESULTS Rdw 13.4 11.1 - 14.9 % CDR HISTORICAL RESULTS RDW 43.3 35.7 - 48.1 fl CDR HISTORICAL RESULTS Platelets 234 150 - 400 K/cumm CDR HISTORICAL RESULTS MPV 10.2 9.1 - 12.3 fl CDR HISTORICAL RESULTS NRBC 0.0 0.0 - 0.2 % CDR HIST ORICAL RESULTS NRBC, abs 0.00 0.00 - 0.01 K/cumm CDR HISTORICAL RESULTS Blood specimen (specimen) 06/15/2016 3:[address]ER Roxanna Valenzuela MD LAB BLOOD ORDERABLE S Final Result Performing Organization Address City/State/[facility] de Phone Number CDR HISTORICAL RESULTS * Blood cell morphologic exam (06/15/2016 3:[address] WORKER) Neutrophils 66.4 % CDR HIST ORICAL RESULTS Immature granulocytes 0.4 % CDR HISTORICAL RESULTS Lymphocytes 22.0 % CDR HIST ORICAL RESULTS Monos 8.3 % CDR HISTOR ICAL RESULTS Eosinophils 2.3 % CDR HIST ORICAL RESULTS Basophils 0.6 % CDR HISTOR ICAL RESULTS Neutrophils, abs 6.2 1.7 - 6.5 K/cumm CDR HISTORICAL RESULTS Immature granulocyte, abs 0.0 0.0 - 0.1 K/cumm CDR HISTORICAL RESULTS Lymphocytes, abs 2.0 0.8 - 3.3 K/cumm CDR HISTORICAL RESULTS Monocytes, absolute 0.8 0.2 - 0.8 K/cumm CDR HISTORICAL RESULTS Eosinophils, abs 0.2 0.0 - 0.5 K/cumm CDR HISTORICAL RESULTS Basophils, abs 0.1 0.0 - 0.1 K/cumm CDR HISTORICAL RESULTS Blood specimen (specimen) 06/15/2016 3:[address]ER us Roxanna Valenzuela MD LAB BLOOD ORDERABLE S Final Result CDR HISTORICAL RESULTS * DISCHARGE LABORATORY CUMULATIVE REPORT (06/15/2016) Narrative 06/15/2016 Ordered by an unspecified provider. Historical Provider LAB BLOOD ORDERABLES Ibeth l Result documented in this encounter Visit Diagnoses Diagnosis Crohn's disease of large intestine without complication (CMS/HCC) (HCC) Crohn's disease of both small and large intestine with intestinal obstruction (HCC) documented in this encounter
--- OUTSIDE RECORDS SUMMARY | 2024-05-18 22:17 | XMS_ITS | Encounter Summary ---
Author Organization [facility] Address [address] [place] [address] Phone Care Team Providers Care Director Of Public Relations Name Role Phone Luis Maya MD Primary Care Provider [phone] Encounter Details Date Type Department Care Team (Late st Contact Info) Description 01/24/2018 Orders Only [facility] Gastroenterology [address] [facility] [address] [place] [id number] Nya Hand RN Crohn's disease of small and large intestines with complication (CMS/HCC) (Primary Dx) Social History Tobacco Use Types Packs/Day Years Used Date Smoking Tobacco: Never Sex and Gender Information Value Date Recorded Sex Assigned at Not on file Legal Sex Male 1:20 AM ROPE WALKER Gender Identity Not on file Sexual Orientation Not on file documented as of this encounter Plan of Treatment Upcoming Encounters Date Type Department Care Team (Late st Contact Info) Description 05/22/2024 10:45 AM ROPE WALKER Hospital Encounter [facility] Endoscopy [address] [place] [address] Nikolay Boucher MD [address] [place] [address] 05/22/2024 10:45 AM ROPE WALKER - 05/22/2024 11:15 AM ROPE WALKER Surgery [facility] Endoscopy [address] [place] [address] Nikolay Boucher MD [address] [place] [address] EGD Scheduled Procedures Name Priority Associated Diagnoses Date/Ti ca ESOPHAGOGASTRODUODENOSCOPY Crohn's disease of both small and large intestine with intestinal obstruction (HCC) 05/22/2024 10:45 AM ROPE WALKER documented as of this encounter Visit Diagnoses Diagnosis Crohn's disease of small and large intestines with complication (HCC)- Primary Crohn's disease of both small and large intestine with intestinal obstruction (HCC) documented in this encounter Care Teams Director Of Public Relations Relationship Specialty Start Date End Date Luis Maya MD [facility] [place] [address] PCP - General 07/23/16 03/17/19 documented as of this encounter
--- OUTSIDE RECORDS SUMMARY | 2024-05-18 22:17 | XMS_ITS | Encounter Summary ---
Author Organization [facility] Address [address] [place] [address] Phone Care Team Providers Care Foreign Exchange Dealer Name Role Phone Luis Maya MD Primary Care Provider [phone] Encounter Details Date Type Department Care Team (Late st Contact Info) Description 01/22/2019 Orders Only [facility] Gastroenterology [address] [facility] Advanced Medicine 8th [place] [address] [place] [id number] Roxanna Valenzuela MD [address] [place] [address] Crohn's disease of small and large intestines with complication (CMS/HCC); Abdominal spasms Social History Tobacco Use Types Packs/Day Years Used Date Smoking Tobacco: Never Smokeless Tobacco: Never Sex and Gender Information Value Date Recorded Sex Assigned at Not on file Legal Sex Male 1:20 AM AUTOMOTIVE PARTS MANAGER Gender Identity Not on file Sexual Orientation Not on file documented as of this encounter Ordered Prescriptions Prescription Sig Dispense Quantity Refills Last Filled Start Date End Date hyoscyamine (LEVSIN) 0.125 mg tabletIndications: Urinary Incontinence Take 1 tab PO every 6 hours as needed for spasms 120 tablet 5 01/22/2019 02/03/2020 documented in this encounter Plan of Treatment Upcoming Encounters Date Type Department Care Team (Late st Contact Info) Description 05/22/2024 10:45 AM AUTOMOTIVE PARTS MANAGER Hospital Encounter [facility] [address] [place], [place] [address] Nikolay Boucher MD [address] [place] [address] 05/22/2024 10:45 AM AUTOMOTIVE PARTS MANAGER - 05/22/2024 11:15 AM AUTOMOTIVE PARTS MANAGER Surgery [facility] Endoscopy [address], [place] [address] Nikolay Boucher MD [address] [place] [address] EGD Scheduled Procedures Name Priority Associated Diagnoses Date/Ti ga ESOPHAGOGASTRODUODENOSCOPY Crohn's disease of both small and large intestine with intestinal obstruction (HCC) 05/22/2024 10:45 AM AUTOMOTIVE PARTS MANAGER documented as of this encounter Visit [...] 6 hours as needed for spasms Reorder 01/19/2019 01/22/2019 documented as of this encounter Care Teams Foreign Exchange Dealer Relationship Specialty Start Date End Date Luis Maya MD [address] [place] [address] PCP - General 07/23/16 03/17/19 documented as of this encounter
--- OUTSIDE RECORDS SUMMARY | 2024-05-18 22:17 | XMS_ITS | Encounter Summary ---
Author Organization [facility] Healthcare Address [address] [place] [address] Care Team Providers Care Brusher And Shearer Name Role Phone Luis Maya MD Primary Care Provider [phone] Encounter Details Date Type Department Care Team (Latest Contact Info) Description 01/10/2017 11:20 AM CDT - 02/19/2017 11:59 PM T Hospital Encounter [facility] [phone] Eleanor Ramon MD [address] [facility] [address] [place], [place] [id number] Discharge Disposition: Discharge to home or self care Social History Tobacco Use Types Packs/Day Years Used Date Smoking Tobacco: Never Assessed Sex and Gender Information Value Date Recorded Sex Assigned at Not on file Legal Sex Male 1:20 AM BULB GRADER Gender Identity Not on file Sexual Orientation [...] months Due 11/2017) 05/02/2016 8 vit A-vit [id number] 15 mg lozenge Take 1 tablet by mouth as needed 10/12/2016 2 documented as of this encounter Discharge Disposition Disposition Code Departure Means Destination Discharge to home or self care documented in this encounter Plan of Treatment Upcoming Encounters Date Type Department Care Team (Late st Contact Info) Description 05/22/2024 10:45 AM BULB GRADER Hospital Encounter [facility] Endoscopy [address] [place] [address] Nikolay Boucher MD [address] [place] [address] 05/22/2024 10:45 AM BULB GRADER - 05/22/2024 11:15 AM BULB GRADER Surgery [facility] Endoscopy [address] [place] [address] Nikolay Boucher MD [address] [place] [address] EGD Scheduled Procedures Name Priority Associated Diagnoses Date/Ti me ESOPHAGOGASTRODUODENOSCOPY Crohn's disease of both small and large intestine with intestinal obstruction (HCC) 05/22/2024 10:45 AM BULB GRADER documented as of this encounter Procedures Procedure Name Priority Date/Time Associated Diagnosis Comments LACTATE DEHYDROGENASE Routine Gen Lab 02/19/2017 1:45 PM CDT HAPTOGLOBIN Routine Gen Lab 02/19/2017 1:45 PM CDT FERRITIN Routine Gen Lab 02/19/2017 1:45 PM CDT CBC WITH AUTO DIFFERENTIAL Routine Gen Lab 02/19/2017 1:39 PM CDT RETICULOCYTES Routine Gen Lab 02/19/2017 1:39 PM CDT IRON PROFILE W/ IBC Routine Gen Lab 02/19/2017 1 :39 PM CDT VITAMIN B12 Routine Gen Lab 02/19/2017 1:39 PM CDT FERRITIN Routine Gen Lab 01/10/2017 11:27 AM CDT CBC WITH AUTO DIFFERENTIAL Routine Gen Lab 01/10/2017 11:24 AM CDT RETICULOCYTES Routine Gen Lab 01/10/2017 11:24 AM CDT DISCHARGE LABORATORY CUMULATIVE REPORT 01/10/2017 12:00 AM CDT documented in this encounter Results * Ferritin (02/19/2017 1:45 PM CDT) Ferritin 106 30 - 400 ng/mL [facility] Blood specimen (specimen) 02/19/2017 1:45 PM CDT 02/19/2017 2:31 PM CDT Eleanor Ramon MD LAB BLOOD ORDERABLES Final Result Performing Organization Address City/[facility]/ZIP Co de Phone Number [facility] [place] [address] * Haptoglobin (02/19/2017 1:45 PM CDT) Pathologist [facility] Haptoglobin 115.0 30.0 - 200.0 mg/dL [facility] Blood specimen (specimen) 02/19/2017 1:45 PM CDT 02/19/2017 2:31 PM CDT Eleanor Ramon MD LAB BLOOD ORDERABLES Final Result [facility] [place] [address] * (ABNORMAL) Lactate dehydrogenase (LD) (02/19/2017 1:45 PM CDT) Lactate dehydrogenase (LDH) 260(H) 100 - 250 Units/L [facility] Blood specimen (specimen) 02/19/2017 1:45 PM CDT 02/19/2017 1:49 PM CDT us Eleanor Ramon MD LAB BLOOD ORDERABLES Final Result [facility] [place] [address] * (ABNORMAL) CBC with auto differential (02/19/2017 1:39 PM CDT) WBC 8.7 3.8 - 9.8 K/cumm [facility] RBC 5.47 4.50 - 5.70 M/cumm [facility] Hgb 16.7 13.8 - 17.2 g/dL [facility] Hct 49.4 40.7 - 50.3 % [facility] Mean Cellular Volume - CAM 90.3 80.0 - 97.6 fL [facility] Mean Cellular Hemoglobin - CAM 30.6 26.7 - 33.7 pg [facility] Mean Cellular Hemoglobin Concentration - CAM 33.9 32.7 - 35.5 g/dL [facility] Rdw 15.0(H) 11.8 - 14.6 % [facility] Plt 199 140 - 440 K/cumm [facility] Mean Platelet Volume - CAM 7.5 6.8 - 10.4 fL [facility] Neutrophil pct 72.2 38.7 - 74.5 % [facility] Lymphocyte pct 16.4(L) 20.0 - 54.3 % [facility] Monos 8.6 4.3 - 13.5 % [facility] Eosinophil pct 2.0 0.0 - 6.0 % [facility] Basophil pct 0.8 0.0 - 3.0 % [facility] Neutrophil abs 6.3 1.8 - 6.6 K/cumm [facility] Lymphocyte abs 1.4 1.2 - 3.3 K/cumm [facility] Monocyte abs 0.7 0.2 - 1.2 K/cumm [facility] Eosinophils, abs 0.2 0.0 - 0.5 K/cumm [facility] Basophil abs 0.1 0.0 - 0.2 K/cumm [facility] NRBC 0.4(H) 0.0 - 0.2 % [facility] NRBC abs 0.03(H) 0.00 - 0.01 K/cumm [facility] Blood specimen (specimen) 02/19/2017 1:39 PM CDT 02/19/2017 1:40 PM CDT Eleanor Ramon MD LAB BLOOD ORDERABLES Final Result Performing Organization Address [facility] [place] [address] * (ABNORMAL) Reticulocytes (02/19/2017 1:39 PM CDT) [facility] Reticulocyte Count - CAM 2.6(H) 0.5 - 1.8 % [facility] Reticulocyte Count - CAM 0.143(H) 0.020 - 0.087 M/cumm [facility] Blood specimen (specimen) 02/19/2017 1:39 PM CDT 02/19/2017 1:40 PM CDT Eleanor Ramon MD LAB BLOOD ORDERABLES Final Result Performing Organization Address [facility] [place] [address] * Vitamin B12 (02/19/2017 1:39 PM CDT) [facility] Vitamin B12 682 210 - 900 pg/mL [facility] Blood specimen (specimen) 02/19/2017 1:39 PM CDT 02/19/2017 2:01 PM CDT Eleanor Ramon MD LAB BLOOD ORDERABLES Final Result Performing Organization Address [facility] [place] [address] * Iron profile (02/19/2017 1:39 PM CDT) Pathologist [facility] Iron 96 50 - 150 mcg/dL [facility] UIBC See Comment 112 - 347 mcg/dL [facility] Comment:CRDT; Hemolyzed Spec imen TIBC See Comment 250 - 400 mcg/dL [facility] Comment:CRDT; Hemolyzed Spec imen Transferrin saturation See Comment 20 - 50 % [facility] Comment:CRDT; Hemolyzed Spec imen Blood specimen (specimen) 02/19/2017 1:39 PM CDT 02/19/2017 2:01 PM CDT Eleanor Ramon MD LAB BLOOD ORDERABLES Final Result [facility] [place] [address] * Ferritin (01/10/2017 11:27 AM CDT) [facility] Ferritin 236 30 - 400 ng/mL [facility] Blood specimen (specimen) 01/10/2017 11:27 AM CDT 01/10/2017 12:22 PM CDT us Eleanor Ramon MD LAB BLOOD ORDERABLES Final Result Performing Organization Address City/[facility] Co de Phone Number [facility] [place] [address] * (ABNORMAL) CBC with auto differential (01/10/2017 11:24 AM CDT) [facility] WBC 14.1(H) 3.8 - 9.8 K/cumm [facility] RBC 5.30 4.50 - 5.70 M/cumm [facility] Hgb 15.7 13.8 - 17.2 g/dL [facility] Hct 46.6 40.7 - 50.3 % [facility] Mean Cellular Volume - CAM 87.9 80.0 - 97.6 fL [facility] Mean Cellular Hemoglobin - CAM 29.6 26.7 - 33.7 pg [facility] Mean Cellular Hemoglobin Concentration - CAM 33.6 32.7 - 35.5 g/dL [facility] Rdw 14.8(H) 11.8 - 14.6 % [facility] Plt 198 140 - 440 K/cumm [facility] Mean Platelet Volume - CAM 7.5 6.8 - 10.4 fL [facility] Neutrophil pct 73.8 38.7 - 74.5 % [facility] Lymphocyte pct 12.1(L) 20.0 - 54.3 % [facility] Monos 11.7 4.3 - 13.5 % [facility] Eosinophil pct 1.9 0.0 - 6.0 % [facility] Basophil pct 0.5 0.0 - 3.0 % [facility] Neutrophil abs 10.4(H) 1.8 - 6.6 K/cumm [facility] Lymphocyte abs 1.7 1.2 - 3.3 K/cumm [facility] Monocyte abs 1.7(H) 0.2 - 1.2 K/cumm [facility] Eosinophils, abs 0.3 0.0 - 0.5 K/cumm [facility] Basophil abs 0.1 0.0 - 0.2 K/cumm [facility] NRBC 0.1 0.0 - 0.2 % [facility] NRBC abs 0.01 0.00 - 0.01 K/cumm [facility] Blood specimen (specimen) 01/10/2017 11:24 AM CDT 01/10/2017 11:28 AM CDT us Eleanor Ramon MD LAB BLOOD ORDERABLES Final Result [facility] [place] [address] * (ABNORMAL) Reticulocytes (01/10/2017 11:24 AM CDT) Reticulocyte Count - CAM 1.7 0.5 - 1.8 % [facility] Reticulocyte Count - CAM 0.089(H) 0.020 - 0.087 M/cumm [facility] Blood specimen (specimen) 01/10/2017 11:24 AM CDT 01/10/2017 11:28 AM CDT us Eleanor Ramon MD LAB BLOOD ORDERABLES Final Result [facility] [place] [address] * DISCHARGE LABORATORY CUMULATIVE REPORT (01/10/2017 12:00 AM CDT) Narrative 01/10/2017 12:00 AM CDT Ordered by an unspecified provider. us Historical Provider LAB BLOOD ORDERABLES Ibeth l Result documented in this encounter Visit Diagnoses Not on filedocumented in this encounter Care Teams Brusher And Shearer Relationship Specialty Start Date End Date Luis Maya MD [facility] [place] [address] PCP - General 07/23/16 03/17/19 documented as of this encounter
--- OUTSIDE RECORDS SUMMARY | 2024-05-18 22:17 | XMS_ITS | Encounter Summary ---
Author Organization [facility] Address [address] [place] [address] Phone Care Team Providers Care Display Decorator Name Role Phone Luis Maya MD Primary Care Provider [phone] Encounter Details Date Type Department Care Team (Late st Contact Info) Description 02/18/2018 2:15 PM CDT Office Visit [facility] Hematology [address] [facility] Advanced Medicine 7th [place] [address] [place] [address] Eleanor Ramon MD [address] [place] [address] Iron deficiency anemia due to chronic blood loss (Primary Dx); Erythrocytosis Social History Tobacco Use Types Packs/Day Years Used Date Smoking Tobacco: Never Smokeless Tobacco: Never Sex and Gender Information Value Date Recorded Sex Assigned at Not on file Legal Sex Male 1:20 AM CASINO RUNNER Gender Identity Not on file Sexual Orientation Not on file documented as of this encounter Last Filed Vital Signs Vital Sign Reading Time Taken Comments Blood Pressure 136/64 02/18/2018 2:18 PM CDT Pulse 71 02/18/2018 2:18 PM CDT Temperature 36.7 ??C (98.1 ??F) 02/18/2018 2:18 PM CD T Respiratory Rate 18 02/18/2018 2:18 PM CDT Oxygen Saturation 97% 02/18/2018 2:18 PM CDT Inhaled Oxygen Concentration - - Weight 97.5 kg (215 lb) 02/18/2018 2:18 PM CDT Height - - Body Mass Index 28.37 01/31/2018 7:58 AM CDT documented in this encounter Progress Notes * Cristal Longoria, MEDICAL LABORATORY TECHNICAL OFFICER - 02/18/2018 2:15 PM CDT PATIENT NAME: Mello Herbert : 1965 DATE OF SERVICE: 02/24/2018 Diagnosis: Iron deficiency anemia. Interval History: Mr. 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 He has tried oral iron in the past, but was unable to tolerate this, thus he has received intermittent IV iron. His last IV iron was 07/25/17 and 08/20/17.He reports this last iron infusion really improved his energy fairly quickly. He otherwise denies weight loss, night sweats, fevers, shortness of breath, chest pain, and all other review of systems are negative. ALLERGIES: Allergies Allergen Reactions ??? Latex Rash CURRENT MEDICATION: Current Outpatient Prescriptions: ??? acetaminophen-codeine (TYLENOL with CODEINE #3) 300-30 mg per tablet, , Disp: , Rfl: 5 ??? adalimumab (HUMIRA PEN) 40 mg/0.8 mL pen injector kit, Inject 0.8 mL (40 mg total) under the skin every 14 (fourteen) days. Safety labs due DEACON Need by End of 01/2018, Disp: 6 each, Rfl: 1 ??? ALPRAZolam (XANAX) 1 mg tablet, TK 1/2 TO 1 T PO BID PRF ANXIETY, Disp: , Rfl: 5 ??? CIALIS 20 mg tablet, TK 1 T PO QD PRN, Disp: , Rfl: 5 ??? cyanocobalamin (Vitamin B-12) 1,000 mcg/mL injection, INJECT 1 ML Q 2 WEEKS UTD, Disp: , Rfl: 4 ??? ergocalciferol (VITAMIN D) 50,000 unit capsule, TK ONE C PO Q MONTH UTD, Disp: , Rfl: 0 ??? folic acid (FOLVITE) 1 mg tablet, TK 1 T PO D UTD, Disp: , Rfl: 3 ??? hydroCHLOROthiazide (HYDRODIURIL) 25 mg tablet, daily., Disp: , Rfl: ??? hyoscyamine (LEVSIN) 0.125 mg tablet, TK 1 T PO Q 6 H PRF ABD SPASMS, Disp: , Rfl: 5 ??? losartan (COZAAR) 25 mg tablet, TK 1 T PO ONCE D, Disp: , Rfl: 6 ??? ondansetron (ZOFRAN) 8 mg tablet, TK 1 T PO TID PRN, Disp: , Rfl: 5 ??? testosterone cypionate (DEPO-TESTOTERONE) 200 mg/mL injection, INJ 1 ML IM Q WK, Disp: , Rfl: 5 ??? zolpidem (AMBIEN) 10 mg tablet, TK 1 T PO Q HS PRN, Disp: , Rfl: 5 HISTORY Social History Social History ??? Marital status: Spouse name: N/A ??? Number of children: N/A ??? Years of education: N/A Occupational History ??? Not on file. Social History Main Topics ??? Smoking status: Never Smoker ??? Smokeless tobacco: Never Used ??? Alcohol use Not on file ??? Drug use: Unknown ??? Sexual activity: Not on file Other Topics Concern ??? Not on file Social History Narrative Marital History - Currently : (Added by TW Conv) No alcohol use : (Added by TW Conv) VITALS: Vitals BP 136/64 (BP Location: Left arm) Pulse 71 Temp 36.7 ??C (98.1 ??F) (Oral) Resp 18 Wt 97.5 kg (215 lb) SpO2 97% BMI 28.37 kg/m?? PHYSICAL EXAM: Physical Exam Constitutional: He is oriented to person, place, and time. He appears well- developed and well-nourished. HENT: Head: Normocephalic and atraumatic. Nose: Nose normal. Mouth/Throat: Oropharynx is clear and moist. Eyes: Pupils are equal, round, and reactive to light. Conjunctivae and EOM are normal. Neck: Normal range of motion. Neck supple. Cardiovascular: Normal rate, regular rhythm and normal heart sounds. Pulmonary/Chest: Effort normal and breath sounds normal. Abdominal: Soft. Bowel sounds are normal. Musculoskeletal: Normal range of motion. Neurological: He is alert and oriented to person, place, and time. Skin: Skin is warm and dry. Psychiatric: He has a normal mood and affect. LABORATORY DATA: Lab on 02/18/2018 Component Date Value Ref Range Status ??? Retics, absolute 02/18/2018 0.117* 0.020 - 0.087 M/cumm Final ??? Retics 02/18/2018 2.27* 0.50 - 1.80 % Final ??? WBC 02/18/2018 7.2 3.8 - 9.8 K/cumm Final ??? Hgb 02/18/2018 15.5 13.8 - 17.2 g/dL Final ??? Hct 02/18/2018 46.3 40.7 - 50.3 % Final ??? Plt 02/18/2018 198 140 - 440 K/cumm Final ??? MPV 02/18/2018 7.3 6.8 - 10.4 fL Final ??? RBC 02/18/2018 5.18 4.50 - 5.70 M/cumm Final ??? MCV 02/18/2018 89.4 80.0 - 97.6 fL Final ??? MCH 02/18/2018 30.0 26.7 - 33.7 pg Final ??? MCHC 02/18/2018 33.6 32.7 - 35.5 g/dL Final ??? RDW CV 02/18/2018 15.2* 11.8 - 14.6 % Final ??? NRBC Abs 02/18/2018 0.00 0.00 - 0.01 K/cumm Final ??? Ferritin 02/18/2018 271 30 - 400 ng/mL Final ??? Iron 02/18/2018 73 50 - 150 mcg/dL Final ??? UIBC 02/18/2018 173 112 - 347 mcg/dL Final ??? TIBC 02/18/2018 246* 250 - 400 mcg/dL Final ??? Transferrin saturation 02/18/2018 30 20 - 50 % Final ??? Neutrophil absolute 02/18/2018 4.6 1.8 - 6.6 K/cumm Final ??? Lymphocytes absolute 02/18/2018 1.7 1.2 - 3.3 K/cumm Final ??? Monocyte absolute 02/18/2018 0.6 0.2 - 1.2 K/cumm Final ??? Eosinophils absolute 02/18/2018 0.2 0.0 - 0.5 K/cumm Final ??? Basophils, abs 02/18/2018 0.0 0.0 - 0.2 K/cumm Final ??? Neutrophils 02/18/2018 65.0 % Final ??? Lymphocytes 02/18/2018 23.2 % Final ??? Monocytes 02/18/2018 8.1 % Final ??? Eosinophils 02/18/2018 3.0 % Final ??? Basophils 02/18/2018 0.7 % Final ASSESSMENT AND PLAN: Patient Active Problem List Diagnosis ??? Iron deficiency anemia due to chronic blood loss ??? Erythrocytosis 1. Iron deficiency anemia. Mr. Herbert presents for follow up of iron deficiency anemia. 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 He was found to have recurrent iron deficiency on 07/23/17 with a ferritin of 34 and he was given a dose of IV Injectafer on 07/25/17 and 08/20/17. His counts today are stable with a hemoglobin of 15.5without evidence of iron deficiency thus we will defer further IV iron supplementation at this time. We will plan to see him back in 6 months and will check labs at 3 months. He knows to call with questions or concerns in the interim. 2. Vitamin B12 deficiency. Mr. Herbert has had evidence of vitamin B12 deficiency and receives twice monthly B12 through another provider. His last B12 was stable at 734. DISPOSITION: The patient will return follow up in 6 months. They know to contact our office with any questions or concerns prior to the next follow up appointment. Cristal Longoria NP documented in this encounter Plan of Treatment Upcoming Encounters Date Type Department Care Team (Late st Contact Info) Description 05/22/2024 10:45 AM [facility] Hospital Encounter [facility] [address] [place] [address] [address] Nikolay Boucher MD [address] [place] [address] 05/22/2024 10:45 AM CASINO RUNNER - 05/22/2024 11:15 AM CASINO RUNNER Surgery [facility] [address] [place] [address] Nikolay Boucher MD [address] [place] [address] EGD Scheduled Procedures Name Priority Associated Diagnoses Date/Ti me ESOPHAGOGASTRODUODENOSCOPY Crohn's disease of both small and large intestine with intestinal obstruction (HCC) 05/22/2024 10:45 AM CASINO RUNNER documented as of this encounter Results * (ABNORMAL) Reticulocyte Count (08/19/2018 12:49 PM CDT) Pathologist [facility] Retics, absolute 0.208(H) 0.020 - 0.087 M/cumm [facility] Comment:Testing performed by : [facility], [address] [place] [phone] Retics 4.73(H) 0.50 - 1.80 % [facility] Comment:Testing performed by : [facility], [address] [place] [phone] Blood specimen (specimen) 08/19/2018 12:49 PM CDT 08/19/2018 12:52 PM CDT Narrative [facility] - 08/19/2018 12:58 PM CDT us Cristal Longoira MEDICAL LABORATORY TECHNICAL OFFICER LAB BLOOD ORDERABLES Final Result [facility] Department [place] [address] * (ABNORMAL) CBC with auto differential (08/19/2018 12:49 PM CDT) Pathologist [facility] WBC 7.6 3.8 - 9.8 K/cumm [facility] Comment:Testing performed by : [facility], [address] [place] [address] Hgb 13.3(L) 13.8 - 17.2 g/dL [facility] Comment:Testing performed by : [facility], [address] [place] [address] Hct 39.8(L) 40.7 - 50.3 % [facility] Comment:Testing performed by : [facility], [address] [place] [address] Plt 189 140 - 440 K/cumm [facility] Comment:Testing performed by : [facility], [address] [place] [address] MPV 7.2 6.8 - 10.4 fL [facility] Comment:Testing performed by : [place] [address] RBC 4.41(L) 4.50 - 5.70 M/cumm [facility] Comment:Testing performed by : [facility], [address] [place] [address] MCV 90.2 80.0 - 97.6 fL [facility] Comment:Testing performed by : [place] [address] MCH 30.2 26.7 - 33.7 pg [facility] Comment:Testing performed by : [place] [address] MCHC 33.5 32.7 - 35.5 g/dL [facility] Comment:Testing performed by : [facility], [address] [place] [address] RDW CV 15.7(H) 11.8 - 14.6 % [facility] Comment:Testing performed by : [place] [address] NRBC abs 0.01 0.00 - 0.01 K/cumm [facility] Comment:Testing performed by : [place] [address] Blood specimen (specimen) 08/19/2018 12:49 PM CDT 08/19/2018 12:52 PM CDT Narrative [facility] - 08/19/2018 12:58 PM CDT Cristal Longoria MEDICAL LABORATORY TECHNICAL OFFICER LAB BLOOD ORDERABLES Final Result Performing Organization Address City/[facility]/ZIP Co de Phone Number [facility] Department [place] [address] * (ABNORMAL) Iron profile w/ IBC (08/19/2018 12:43 PM CDT) Iron 72 50 - 150 mcg/dL [facility] TIBC 242(L) 250 - 400 mcg/dL [facility] Transferrin saturation 30 20 - 50 % [facility] Blood specimen (specimen) 08/19/2018 12:43 PM CDT 08/19/2018 1:26 PM CDT Narrative [facility] - 08/19/2018 9:48 PM CDT Cristal Longoria MEDICAL LABORATORY TECHNICAL OFFICER LAB BLOOD ORDERABLES Final Result Performing Organization Address [facility]/[place] [address] * Ferritin (08/19/2018 12:43 PM CDT) [facility] Ferritin 321 30 - 400 ng/mL [facility] Blood specimen (specimen) 08/19/2018 12:43 PM CDT 08/19/2018 1:26 PM CDT Narrative [facility] - 08/19/2018 2:02 PM CDT Cristal Longoria MEDICAL LABORATORY TECHNICAL OFFICER LAB BLOOD ORDERABLES Final Result Performing Organization Address City/[facility]/ZIP Co de Phone Number [facility] [place] [address] * Ferritin (06/30/2018 10:39 AM CASINO RUNNER) Ferritin 205 30 - 400 ng/mL [facility] Blood specimen (specimen) 06/30/2018 10:39 AM CASINO RUNNER 06/30/2018 11:08 AM CASINO RUNNER Narrative [facility] - 06/30/2018 11:49 AM CASINO RUNNER Cristal Longoria MEDICAL LABORATORY TECHNICAL OFFICER LAB BLOOD ORDERABLES Final Result Performing Organization Address [facility] de Phone Number [facility] [place] [address] * Reticulocyte Count (06/30/2018 10:39 AM CASINO RUNNER) [facility] Retics, absolute 0.079 0.020 - 0.087 M/cumm [facility] Retics 1.3 0.4 - 2.9 % [facility] Reticulocyte Hgb 35.4 30.5 - 38.0 pg [facility] Blood specimen (specimen) 06/30/2018 10:39 AM CASINO RUNNER 06/30/2018 11:08 AM CASINO RUNNER Narrative [facility] - 06/30/2018 11:16 AM CASINO RUNNER Cristal Longoria MEDICAL LABORATORY TECHNICAL OFFICER LAB BLOOD ORDERABLES Final Result Performing Organization Address [facility] [place] [address] * Iron profile (06/30/2018 10:39 AM CASINO RUNNER) [facility] Iron 122 50 - 150 mcg/dL [facility] TIBC See Comment 250 - 400 mcg/dL [facility] Comment:CRDT; Hemolyzed Spec imen CRDT; Hemolyzed Specimen Transferrin saturation See Comment 20 - 50 % [facility] Comment:CRDT; Hemolyzed Spec imen CRDT; Hemolyzed Specimen Blood specimen (specimen) 06/30/2018 10:39 AM CASINO RUNNER 06/30/2018 11:08 AM CASINO RUNNER Narrative [facility] - 06/30/2018 12:05 PM CASINO RUNNER Cristal Longoria MEDICAL LABORATORY TECHNICAL OFFICER LAB BLOOD ORDERABLES Final Result [facility] Department [place] [address] * (ABNORMAL) CBC with auto differential (06/30/2018 10:39 AM CASINO RUNNER) [facility] WBC 7.8 3.8 - 9.9 K/cumm [facility] Hgb 17.7(H) 13.0 - 17.5 g/dL [facility] Hct 52.3(H) 38.9 - 50.3 % [facility] Plt 224 150 - 400 K/cumm [facility] MPV 10.3 9.1 - 12.3 fL [facility] RBC 5.99(H) 4.30 - 5.80 M/cumm [facility] MCV 87.3 81.3 - 96.4 fL [facility] MCH 29.5 27.1 - 33.3 pg [facility] MCHC 33.8 32.3 - 35.7 g/dL [facility] RDW CV 13.4 11.1 - 14.9 % [facility] RDW SD 43.0 35.7 - 48.1 fL [facility] NRBC abs 0.00 0.00 - 0.01 K/cumm [facility] Blood specimen (specimen) 06/30/2018 10:39 AM CASINO RUNNER 06/30/2018 11:08 AM CASINO RUNNER Narrative [facility] - 06/30/2018 11:16 AM CASINO RUNNER Cristal Longoria MEDICAL LABORATORY TECHNICAL OFFICER LAB BLOOD ORDERABLES Final Result [facility] Department [place] [address] * (ABNORMAL) Iron profile (02/18/2018 1:42 PM CDT) [facility] Iron 73 50 - 150 mcg/dL [facility] UIBC 173 112 - 347 mcg/dL [facility] TIBC 246(L) 250 - 400 mcg/dL [facility] Transferrin saturation 30 20 - 50 % [facility] Blood specimen (specimen) 02/18/2018 1:42 PM CDT 02/18/2018 2:14 PM CDT Narrative [facility] - 02/18/2018 2:53 PM CDT us Eleanor Ramon MD LAB BLOOD ORDERABLES Final Result Performing Organization Address [facility] Co de Phone Number [facility] Department [place] [address] * Ferritin (02/18/2018 1:42 PM CDT) [facility] Ferritin 271 30 - 400 ng/mL [facility] Blood specimen (specimen) 02/18/2018 1:42 PM CDT 02/18/2018 2:14 PM CDT Narrative [facility] - 02/18/2018 3:08 PM CDT us Eleanor Ramon MD LAB BLOOD ORDERABLES Final Result Performing Organization Address [facility] Co de Phone Number [facility] Department [place] [address] * (ABNORMAL) Reticulocyte Count (02/18/2018 1:38 PM CDT) Pathologist [facility] Retics, absolute 0.117(H) 0.020 - 0.087 M/cumm [facility] Comment:Testing performed by : [facility], [address] [place] [phone] Retics 2.27(H) 0.50 - 1.80 % [facility] Comment:Testing performed by : [facility], [address] [place] [phone] Blood specimen (specimen) 02/18/2018 1:38 PM CDT 02/18/2018 1:41 PM CDT Narrative [facility] - 02/18/2018 1:48 PM CDT us Eleanor Ramon MD LAB BLOOD ORDERABLES Final Result [facility] Department [place] [address] * (ABNORMAL) CBC with auto differential (02/18/2018 1:38 PM CDT) WBC 7.2 3.8 - 9.8 K/cumm [facility] Comment:Testing performed by : [facility], [address] [place] [phone] Hgb 15.5 13.8 - 17.2 g/dL [facility] Comment:Testing performed by : [facility], [address] [place] [phone] Hct 46.3 40.7 - 50.3 % [facility] Comment:Testing performed by : [facility], [address] [place] [phone] Plt 198 140 - 440 K/cumm [facility] Comment:Testing performed by : [facility], [address] [place] [phone] MPV 7.3 6.8 - 10.4 fL [facility] Comment:Testing performed by : [address] [phone] RBC 5.18 4.50 - 5.70 M/cumm [facility] Comment:Testing performed by : [facility], [address] [place] [phone] MCV 89.4 80.0 - 97.6 fL [facility] Comment:Testing performed by : [facility], [address] [place] [phone] MCH 30.0 26.7 - 33.7 pg [facility] Comment:Testing performed by : [address] [phone] MCHC 33.6 32.7 - 35.5 g/dL [facility] Comment:Testing performed by : [facility], [address] [facility] [phone] RDW CV 15.2(H) 11.8 - 14.6 % [facility] Comment:Testing performed by : [facility], [address] [place] [phone] NRBC abs 0.00 0.00 - 0.01 K/cumm [facility] Comment:Testing performed by : [facility], [address] [place] [phone] Blood specimen (specimen) 02/18/2018 1:38 PM CDT 02/18/2018 1:41 PM CDT Narrative [facility] - 02/18/2018 1:48 PM CDT us Eleanor Ramon MD LAB BLOOD ORDERABLES Final Result [facility] Department [place] [address] documented in this encounter Visit Diagnoses Diagnosis Iron deficiency anemia due to chronic blood loss- Primary Iron deficiency anemia secondary to blood loss (chronic) Erythrocytosis Polycythemia, secondary Iron deficiency anemia due to chronic blood loss Iron deficiency anemia secondary to blood loss (chronic) Erythrocytosis Polycythemia, secondary Iron deficiency anemia due to chronic blood [...] 8 (eight) hours as needed 5 02/09/2018 02/17/2021 added in this encounter Orders Appointment Requests Count Last Ordered Date Fi rst Ordered Date ONCBCN CLINIC APPOINTMENT REQUEST 1 019 ONCBCN LAB APPOINTMENT 1 08/19/2018 documented in this encounter Care Teams Display Decorator Relationship Specialty Start Date End Date Luis Maya MD [address] [place] [address] PCP - General 07/23/16 03/17/19 documented as of this encounter
--- OUTSIDE RECORDS SUMMARY | 2024-05-18 22:17 | XMS_ITS | Encounter Summary ---
Author Organization [facility] Address [address] [place] [address] Phone Care Team Providers Care Cold Header Operator Name Role Phone Luis Maya MD Primary Care Provider [phone] Encounter Details Date Type Department Care Team (Late st Contact Info) Description 08/05/2018 Orders Only [facility] Gastroenterology [address] [facility] 8th [place] [address] [place] [id number] Maria T Lofton RMA Social History Tobacco Use Types Packs/Day Years Used Date Smoking Tobacco: Never Smokeless Tobacco: Never Sex and Gender Information Value Date Recorded Sex Assigned at Not on file Legal Sex Male 1:20 AM CLOTH LAMINATING SUPERVISOR Gender Identity Not on file Sexual Orientation Not on file documented as of this encounter Plan of Treatment Upcoming Encounters Date Type Department Care Team (Late st Contact Info) Description 05/22/2024 10:45 AM CLOTH LAMINATING SUPERVISOR Hospital Encounter [facility] [address] [place] [address] Nikolay Boucher MD [address] [place] [address] 05/22/2024 10:45 AM CLOTH LAMINATING SUPERVISOR - 05/22/2024 11:15 AM CLOTH LAMINATING SUPERVISOR Surgery [facility] [address] [address] [address] Nikolay Boucher MD [address] [place] [address] EGD Scheduled Procedures Name Priority Associated Diagnoses Date/Ti me ESOPHAGOGASTRODUODENOSCOPY Crohn's disease of both small and large intestine with intestinal obstruction (HCC) 05/22/2024 10:45 AM CLOTH LAMINATING SUPERVISOR documented as of this encounter Visit Diagnoses Not on filedocumented in this encounter Historical Medications * This list may reflect changes made after this encounter. montelukast (SINGULAIR) 10 mg tablet Take 1 tablet (10 mg total) by mouth as needed 1 07/10/2018 magnesium oxide,aspartate,c itr 400 mg magnesium capsule Take 1 capsule by mouth as needed 10/12/2016 lansoprazole (PREVACID) 15 mg capsule Take 1 capsule (15 mg total) by mouth 2 (two) times a day 10/12/2016 diphenoxylate-atr opine (LOMOTIL) 2.5-0.025 mg per tablet Take 1 tablet by mouth 3 (three) times a day as needed 5 06/19/[address] (CYMBALTA) 30 mg capsule TAKE ONE C BY MOUTH DAILY 2 06/23/2018 02/10/2021 vit A-vit S-vixw-asotydzq 15 mg lozenge Take 1 tablet by mouth as needed 10/12/2016 07/12/2021 venlafaxine XR (EFFEXOR-XR) 37.5 mg 24 hr capsule TK 1 C PO QAM 2 07/14/201802/10 added in this encounter Care Teams Cold Header Operator Relationship Specialty Start Date End Date Luis Maya MD [address] [place] [address] PCP - General 07/23/16 03/17/19 documented as of this encounter
--- OUTSIDE RECORDS SUMMARY | 2024-05-18 22:17 | XMS_ITS | Encounter Summary ---
Author Organization [facility] Address [address] [place] [address] Phone Care Team Providers Care Occupational Medicine Officer Name Role Phone Luis Maya MD Primary Care Provider [phone] Encounter Details Date Type Department Care Team (Late st Contact Info) Description 02/18/2018 1:[address] [facility] Oncology [address] [facility] Advanced [facility] 7th [place] [address] [place] [phone] Eleanor Ramon MD [address] [place] [address] Iron deficiency anemia due to chronic blood loss; Erythrocytosis Discharge Disposition: Discharge to home or self care Social History Tobacco Use Types Packs/Day Years Used Date Smoking Tobacco: Never Smokeless Tobacco: Never Sex and Gender Information Value Date Recorded Sex Assigned at Not on file Legal Sex Male 1:20 AM RETAIL CHAIN STORE AREA SUPERVISOR Gender Identity Not on file Sexual Orientation Not on file documented as of this encounter Discharge Disposition Disposition Code Departure Means Destination Discharge to home or self care documented in this encounter Plan of Treatment Upcoming Encounters Date Type Department Care Team (Late st Contact Info) Description 05/22/2024 10:45 AM RETAIL CHAIN STORE AREA SUPERVISOR Hospital Encounter [facility] Endoscopy [address] [place] [address] Nikolay Boucher MD [address] [place] [address] 05/22/2024 10:45 AM RETAIL CHAIN STORE AREA SUPERVISOR - 05/22/2024 11:15 AM RETAIL CHAIN STORE AREA SUPERVISOR Surgery [facility] Endoscopy [address] [place] [address] Nikolay Boucher MD [address] [place] [address] EGD Scheduled Procedures Name Priority Associated Diagnoses Date/Ti me ESOPHAGOGASTRODUODENOSCOPY Crohn's disease of both small and large intestine with intestinal obstruction (HCC) 05/22/2024 10:45 AM RETAIL CHAIN STORE AREA SUPERVISOR documented as of this encounter Procedures Procedure Name Priority Date/Time Associated Diagnosis Comments IRON PROFILE W/ IBC Routine 02/18/2018 1 :42 PM CDT Iron deficiency anemia due to chronic blood loss Erythrocytosis FERRITIN Routine 02/18/2018 1:42 PM CDT Iron deficiency anemia due to chronic blood loss Erythrocytosis DIFFERENTIAL AUTO Routine 02/18/2018 1:3 8 PM CDT Iron deficiency anemia due to chronic blood loss Erythrocytosis CBC WITH AUTO DIFFERENTIAL Routine 02/18/2018 1:38 PM CDT Iron deficiency anemia due to chronic blood loss Erythrocytosis RETICULOCYTES Routine 02/18/2018 1:38 PM CDT Iron deficiency anemia due to chronic blood loss Erythrocytosis documented in this encounter Results * (ABNORMAL) Iron profile (02/18/2018 1:42 PM CDT) Iron 73 50 - 150 mcg/dL [facility] UIBC 173 112 - 347 mcg/dL [facility] TIBC 246(L) 250 - 400 mcg/dL [facility] Transferrin saturation 30 20 - 50 % [facility] Blood specimen (specimen) 02/18/2018 1:42 PM CDT 02/18/2018 2:14 PM CDT Narrative [facility] - 02/18/2018 2:53 PM CDT us Eleanor Ramon MD LAB BLOOD ORDERABLES Final Result Performing Organization Address City/[facility] Co de Phone Number [facility] [place] [address] * Ferritin (02/18/2018 1:42 PM CDT) [facility] Ferritin 271 30 - 400 ng/mL [facility] Blood specimen (specimen) 02/18/2018 1:42 PM CDT 02/18/2018 2:14 PM CDT Narrative [facility] - 02/18/2018 3:08 PM CDT us Eleanor Ramon MD LAB BLOOD ORDERABLES Final Result Performing Organization Address [facility] de Phone Number [facility] [place] [address] * Differential, auto (02/18/2018 1:38 PM CDT) [facility] Neutrophil abs 4.6 1.8 - 6.6 K/cumm [facility] Comment:Testing performed by : [facility], [address] [place] [phone] Lymphocyte abs 1.7 1.2 - 3.3 K/cumm [facility] Comment:Testing performed by : [facility], [facility] [phone] Monocyte abs 0.6 0.2 - 1.2 K/cumm [facility] Comment:Testing performed by : [facility], [address] [place] [phone] Eosinophil abs 0.2 0.0 - 0.5 K/cumm [facility] Comment:Testing performed by : [facility], [address] [place] [phone] Basophil abs 0.0 0.0 - 0.2 K/cumm [facility] Comment:Testing performed by : [facility], [address] [place] [phone] Neutrophil pct 65.0 % [facility] Comment: Interpretive Data Percent cell count reference ranges are not reported, since discordance with absolute values may lead to misinterpretation of CBC data. Current Interpretive Data was last revised on 2017. Testing performed by: [facility], [address] [place] [phone] Lymphocyte pct 23.2 % [facility] Comment: Interpretive Data Percent cell count reference ranges are not reported, since discordance with absolute values may lead to misinterpretation of CBC data. Current Interpretive Data was last revised on 2017. Testing performed by: [facility], [address] [place] [phone] Monocyte pct 8.1 % [facility] Comment:Testing performed by : [facility], [address] [place] [phone] Eosinophil pct 3.0 % [facility] Comment:Testing performed by : [facility], [address] [place] [phone] Basophil pct 0.7 % [facility] Comment:Testing performed by : [facility], [address] [place] [phone] Blood specimen (specimen) 02/18/2018 1:38 PM CDT 02/18/2018 1:41 PM CDT Narrative [facility] - 02/18/2018 1:48 PM CDT us Eleanor Ramon MD LAB BLOOD ORDERABLES Final Result [facility] Department [place] [address] * (ABNORMAL) CBC with auto differential (02/18/2018 1:38 PM CDT) Pathologist [facility] WBC 7.2 3.8 - 9.8 K/cumm [facility] Comment:Testing performed by : [facility], [address] [place] [phone] Hgb 15.5 13.8 - 17.2 g/dL [facility] Comment:Testing performed by : [facility], [address] [place] [address] Hct 46.3 40.7 - 50.3 % [facility] Comment:Testing performed by : [facility], [address] [place] [address] Plt 198 140 - 440 K/cumm [facility] Comment:Testing performed by : [facility], [address] [place] [address] MPV 7.3 6.8 - 10.4 fL [facility] Comment:Testing performed by : [place] [address] RBC 5.18 4.50 - 5.70 M/cumm [facility] Comment:Testing performed by : [place] [address] MCV 89.4 80.0 - 97.6 fL [facility] Comment:Testing performed by : [facility], [address] [place] [address] MCH 30.0 26.7 - 33.7 pg [facility] Comment:Testing performed by : [place] [address] MCHC 33.6 32.7 - 35.5 g/dL [facility] Comment:Testing performed by : [place] [address] RDW CV 15.2(H) 11.8 - 14.6 % [facility] Comment:Testing performed by : [facility], [address] [place] [address] NRBC abs 0.00 0.00 - 0.01 K/cumm [facility] Comment:Testing performed by : [place] [address] Blood specimen (specimen) 02/18/2018 1:38 PM CDT 02/18/2018 1:41 PM CDT Narrative [facility] - 02/18/2018 1:48 PM CDT us Eleanor Ramon MD LAB BLOOD ORDERABLES Final Result Performing Organization Address [facility] [place] [address] * (ABNORMAL) Reticulocyte Count (02/18/2018 1:38 PM CDT) Retics, absolute 0.117(H) 0.020 - 0.087 M/cumm [facility] Comment:Testing performed by : [facility], [address] [place] [phone] Retics 2.27(H) 0.50 - 1.80 % [facility] Comment:Testing performed by : [facility], [address] [place] [phone] Blood specimen (specimen) 02/18/2018 1:38 PM CDT 02/18/2018 1:41 PM CDT Narrative [facility] - 02/18/2018 1:48 PM CDT us Eleanor Ramon MD LAB BLOOD ORDERABLES Final Result Performing Organization Address [facility] Co de Phone Number [facility] of [address] [place] [address] documented in this encounter Visit Diagnoses Diagnosis Iron deficiency anemia due to chronic blood loss Iron deficiency anemia secondary to blood loss (chronic) Erythrocytosis Polycythemia, secondary Crohn's disease of both small and large intestine with intestinal obstruction (HCC) documented in this encounter Care Teams Occupational Medicine Officer Relationship Specialty Start Date End Date Luis Maya MD [address] [place] [address] PCP - General 07/23/16 03/17/19 documented as of this encounter
--- OUTSIDE RECORDS SUMMARY | 2024-05-18 22:17 | XMS_ITS | Encounter Summary ---
Author Organization [facility] Healthcare Address [address] [place] [address] Care Team Providers Care Foil Operator Name Role Phone Luis Maya MD Primary Care Provider [phone] Encounter Details Date Type Department Care Team (Latest Contact Info) Description 07/23/2016 1:40 PM COVER INSPECTOR - 08/21/2016 11:59 PM CDT Hospital Encounter [facility] OP INTERIM [phone] Eleanor Ramon MD [address] [facility] [address] [place], [place] [id number] Discharge Disposition: Discharge to home or self care Social History Tobacco Use Types Packs/Day Years Used Date Smoking Tobacco: Never Assessed Sex and Gender Information Value Date Recorded Sex Assigned at Not on file Legal Sex Male 1:20 AM COVER INSPECTOR Gender Identity Not on file Sexual [...] st Contact Info) Description 05/22/2024 10:45 AM COVER INSPECTOR Hospital Encounter [facility] Endoscopy [address] [place] [address] Nikolay Boucher MD [address] [place] [address] 05/22/2024 10:45 AM COVER INSPECTOR - 05/22/2024 11:15 AM COVER INSPECTOR Surgery [facility] Endoscopy [address] [place] [address] Nikolay Boucher MD [address] [place] [address] EGD Scheduled Procedures Name Priority Associated Diagnoses Date/Ti me ESOPHAGOGASTRODUODENOSCOPY Crohn's disease of both small and large intestine with intestinal obstruction (HCC) 05/22/2024 10:45 AM COVER INSPECTOR documented as of this encounter Procedures Procedure Name Priority Date/Time Associated Diagnosis Comments CBC WITH AUTO DIFFERENTIAL Routine Gen Lab 08/21/2016 1:45 PM CDT RETICULOCYTES Routine Gen Lab 08/21/2016 1:45 PM CDT IRON PROFILE W/ IBC Routine Gen Lab 08/21/2016 1 :35 PM CDT FERRITIN Routine Gen Lab 08/21/2016 1:35 PM CDT documented in this encounter Results * (ABNORMAL) CBC with auto differential (08/21/2016 1:45 PM CDT) Pathologist [facility] WBC 8.5 3.8 - 9.8 K/cumm [facility] RBC 5.74(H) 4.50 - 5.70 M/cumm [facility] Hgb 16.3 13.8 - 17.2 g/dL [facility] Hct 49.3 40.7 - 50.3 % [facility] Mean Cellular Volume - CAM 86.0 80.0 - 97.6 fL [facility] Mean Cellular Hemoglobin - CAM 28.3 26.7 - 33.7 pg [facility] Mean Cellular Hemoglobin Concentration - CAM 33.0 32.7 - 35.5 g/dL [facility] Rdw 14.0 11.8 - 14.6 % [facility] Plt 210 140 - 440 K/cumm [facility] Mean Platelet Volume - CAM 8.0 6.8 - 10.4 fL [facility] Neutrophil pct 67.1 38.7 - 74.5 % [facility] Lymphocyte pct 18.9(L) 20.0 - 54.3 % [facility] Monos 9.9 4.3 - 13.5 % [facility] Eosinophil pct 3.4 0.0 - 6.0 % [facility] Basophil pct 0.7 0.0 - 3.0 % [facility] Neutrophil abs 5.7 1.8 - 6.6 K/cumm [facility] Lymphocyte abs 1.6 1.2 - 3.3 K/cumm [facility] Monocyte abs 0.8 0.2 - 1.2 K/cumm [facility] Eosinophils, abs 0.3 0.0 - 0.5 K/cumm [facility] Basophil abs 0.1 0.0 - 0.2 K/cumm [facility] Blood specimen (specimen) 08/21/2016 1:45 PM CDT 08/21/2016 1:48 PM CDT Eleanor Ramon MD LAB BLOOD ORDERABLES Final Result Performing Organization Address [facility] Co de Phone Number [facility] Department [place] [address] * Reticulocytes (08/21/2016 1:45 PM CDT) Reticulocyte Count - CAM 1.2 0.5 - 1.5 % [facility] Blood specimen (specimen) 08/21/2016 1:45 PM CDT 08/21/2016 1:48 PM CDT Eleanor Ramon MD LAB BLOOD ORDERABLES Final Result Performing Organization Address City/[facility] Co de Phone Number [facility] [place] [address] * Iron profile (08/21/2016 1:35 PM CDT) Iron 81 50 - 150 mcg/dL [facility] UIBC See Comment 112 - 347 mcg/dL [facility] Comment:CRDT; Hemolyzed Spec imen CRDT; Hemolyzed Specimen CRDT; Hemolyzed Specimen CRDT; Hemolyzed Specimen TIBC See Comment 250 - 400 mcg/dL [facility] Comment:CRDT; Hemolyzed Spec imen CRDT; Hemolyzed Specimen CRDT; Hemolyzed Specimen CRDT; Hemolyzed Specimen Transferrin saturation See Comment 20 - 50 % [facility] Comment:CRDT; Hemolyzed Spec imen CRDT; Hemolyzed Specimen CRDT; Hemolyzed Specimen CRDT; Hemolyzed Specimen Blood specimen (specimen) 08/21/2016 1:35 PM CDT 08/21/2016 2:30 PM CDT us Eleanor Ramon MD LAB BLOOD ORDERABLES Final Result Performing Organization Address City/[facility]/[place] [address] * (ABNORMAL) Ferritin (08/21/2016 1:35 PM CDT) Ferritin 26(L) 30 - 400 ng/mL [facility] Blood specimen (specimen) 08/21/2016 1:35 PM CDT 08/21/2016 2:30 PM CDT Eleanor Ramon MD LAB [place] [address] documented in this encounter Visit Diagnoses Not on filedocumented in this encounter Care Teams Foil Operator Relationship Specialty Start Date End Date Luis Maya MD [address] [place] [address] PCP - General 07/23/16 03/17/19 documented as of this encounter
--- OUTSIDE RECORDS SUMMARY | 2024-05-18 22:17 | XMS_ITS | Encounter Summary ---
Author Organization [facility] Address [address] [place] [address] Phone Care Team Providers Care Distribution Designer Name Role Phone Luis Maya MD Primary Care Provider [phone] Encounter Details Date Type Department Care Team (Late st Contact Info) Description 06/18/2017 Orders Only [facility] Hematology [address] [facility] Medical Office Building [address] [place] [phone] Eleanor Ramon MD [address] [place] [address] Social History Tobacco Use Types Packs/Day Years Used Date Smoking Tobacco: Never Assessed Sex and Gender Information Value Date Recorded Sex Assigned at Not on file Legal Sex Male 1:20 AM ACQUISITION LEAD Gender Identity Not on file Sexual Orientation Not on file documented as of this encounter Plan of Treatment Upcoming Encounters Date Type Department Care Team (Late st Contact Info) Description 05/22/2024 10:45 AM ACQUISITION LEAD Hospital Encounter [facility] Endoscopy [address] [place] [address] Nikolay Bocuher MD [address] [place] [address] 05/22/2024 10:45 AM ACQUISITION LEAD - 05/22/2024 11:15 AM ACQUISITION LEAD Surgery [facility] Endoscopy [address] [place] [address] Nikolay Boucher MD [address] [place] [address] EGD Scheduled Procedures Name Priority Associated Diagnoses Date/Ti mo ESOPHAGOGASTRODUODENOSCOPY Crohn's disease of both small and large intestine with intestinal obstruction (HCC) 05/22/2024 10:45 AM ACQUISITION LEAD documented as of this encounter Procedures Procedure Name Priority Date/Time Associated Diagnosis Comments CBC WITH AUTO DIFFERENTIAL Routine Gen Lab 06/18/2017 11:42 AM ACQUISITION LEAD RETICULOCYTES Routine Gen Lab 06/18/2017 11:42 AM ACQUISITION LEAD IRON PROFILE W/ IBC Routine Gen Lab 06/18/2017 1 1:31 AM ACQUISITION LEAD FERRITIN Routine Gen Lab 06/18/2017 11:31 AM ACQUISITION LEAD VITAMIN B12 Routine Gen Lab 06/18/2017 11:31 AM ACQUISITION LEAD documented in this encounter Results * CBC with auto differential (06/18/2017 11:42 AM ACQUISITION LEAD) WBC 7.6 3.8 - 9.8 K/cumm [facility] RBC 5.28 4.50 - 5.70 M/cumm [facility] Hgb 15.9 13.8 - 17.2 g/dL [facility] Hct 47.4 40.7 - 50.3 % [facility] Mean Cellular Volume - CAM 89.8 80.0 - 97.6 fL [facility] Mean Cellular Hemoglobin - CAM 30.2 26.7 - 33.7 pg [facility] Mean Cellular Hemoglobin Concentration - CAM 33.6 32.7 - 35.5 g/dL [facility] Rdw 14.6 11.8 - 14.6 % [facility] Plt 191 140 - 440 K/cumm [facility] Mean Platelet Volume - CAM 7.8 6.8 - 10.4 fL [facility] Neutrophil pct 61.9 38.7 - 74.5 % [facility] Lymphocyte pct 24.2 20.0 - 54.3 % [facility] Monos 9.8 4.3 - 13.5 % [facility] Eosinophil pct 3.4 0.0 - 6.0 % [facility] Basophil pct 0.7 0.0 - 3.0 % [facility] Neutrophil abs 4.7 1.8 - 6.6 K/cumm [facility] Lymphocyte abs 1.8 1.2 - 3.3 K/cumm [facility] Monocyte abs 0.7 0.2 - 1.2 K/cumm [facility] Eosinophils, abs 0.3 0.0 - 0.5 K/cumm [facility] Basophil abs 0.1 0.0 - 0.2 K/cumm [facility] NRBC 0.1 0.0 - 0.2 % [facility] NRBC abs 0.00 0.00 - 0.01 K/cumm [facility] Blood specimen (specimen) 06/18/2017 11:42 AM ACQUISITION LEAD 06/18/2017 11:45 AM ACQUISITION LEAD Narrative [facility] - 06/18/2017 11:49 AM ACQUISITION LEAD Eleanor Ramon MD LAB BLOOD ORDERABLES Final Result [facility] One [facility] Department [place] [address] * (ABNORMAL) Reticulocytes (06/18/2017 11:42 AM ACQUISITION LEAD) [facility] [address] Reticulocyte Count - CAM 2.0(H) 0.5 - 1.8 % [facility] Reticulocyte Count - CAM 0.104(H) 0.020 - 0.087 M/cumm [facility] Blood specimen (specimen) 06/18/2017 11:42 AM ACQUISITION LEAD 06/18/2017 11:45 AM ACQUISITION LEAD Narrative [facility] - 06/18/2017 11:49 AM ACQUISITION LEAD us Eleanor Ramon MD LAB BLOOD ORDERAB[place] [address] * Vitamin B12 (06/18/2017 11:31 AM ACQUISITION LEAD) Vitamin B12 734 230 - 1,250 pg/mL [facility] Blood specimen (specimen) 06/18/2017 11:31 AM ACQUISITION LEAD 06/18/2017 12:17 PM ACQUISITION LEAD Narrative [facility] - 06/18/2017 1:03 PM ACQUISITION LEAD us Eleanor Ramon MD LAB BLOOD ORDERABLES Final Result Performing Organization Address [facility] [place] [address] * Ferritin (06/18/2017 11:31 AM ACQUISITION LEAD) Ferritin 51 30 - 400 ng/mL [facility] Blood specimen (specimen) 06/18/2017 11:31 AM ACQUISITION LEAD 06/18/2017 12:17 PM ACQUISITION LEAD Narrative [facility] - 06/18/2017 12:51 PM ACQUISITION LEAD us Eleanor Ramon MD LAB BLOOD ORDERABLES Final Result Performing Organization Address City/[facility]/[place]IP [place] [address] * Iron profile (06/18/2017 11:31 AM ACQUISITION LEAD) Iron 100 50 - 150 mcg/dL [facility] UIBC 228 112 - 347 mcg/dL [facility] TIBC 328 250 - 400 mcg/dL [facility] Transferrin saturation 30 20 - 50 % [facility] Blood specimen (specimen) 06/18/2017 11:31 AM ACQUISITION LEAD 06/18/2017 12:17 PM ACQUISITION LEAD Narrative [facility] - 06/18/2017 12:48 PM ACQUISITION LEAD us Eleanor Ramon MD LAB BLOOD ORDERABLES Final Result Performing Organization Address City/State/[facility] Co de Phone Number [facility] One [facility] Department [place] [address] documented in this encounter Visit Diagnoses Not on filedocumented in this encounter Care Teams Distribution Designer Relationship Specialty Start Date End Date Luis Maya MD [address] [place] [address] PCP - General 07/23/16 03/17/19 documented as of this encounter
--- OUTSIDE RECORDS SUMMARY | 2024-05-18 22:17 | XMS_ITS | Encounter Summary ---
Author Organization [facility] Address [address] [place] [address] Phone Care Team Providers Care Customs Import Specialist Name Role Phone Luis Maya MD Primary Care Provider [phone] Encounter Details Date Type Department Care Team (Late st Contact Info) Description 08/12/2018 Telephone [facility] Gastroenterology [address] [facility] 8th [place] [address] [place] [phone] Roxanna Valenzuela MD [address] [place] [address] Social History Tobacco Use Types Packs/Day Years Used Date Smoking Tobacco: Never Smokeless Tobacco: Never Sex and Gender Information Value Date Recorded Sex Assigned at Not on file Legal Sex Male 1:20 AM DRIVER GUARD Gender Identity Not on file Sexual Orientation Not on file documented as of this encounter Miscellaneous Notes * Telephone Encounter - Lanie Lockett MA - 08/12/2018 11:57 AM CDT LMOR asking pt to cb to schedule ROV. * Telephone Encounter - Lanie Lockett MA - 08/12/2018 11:55 AM CDT ----- Message from Nya Hand RN sent at 08/07/2018 10:33 AM CDT ----- Regarding: NSH to ROV on 08/07/18 needs RSC'd NSH to ROV on 08/07/18 needs RSC'd documented in this encounter Plan of Treatment Upcoming Encounters Date Type Department Care Team (Late st Contact Info) Description 05/22/2024 10:45 AM DRIVER GUARD Hospital Encounter [facility] Endoscopy [address] [place] [address] Nikolay Boucher MD [address] [place] [address] 05/22/2024 10:45 AM DRIVER GUARD - 05/22/2024 11:15 AM DRIVER GUARD Surgery [facility] Endoscopy [address] [place] [address] Nikolay Boucher MD [address] [place] [address] EGD Scheduled Procedures Name Priority Associated Diagnoses Date/Ti me ESOPHAGOGASTRODUODENOSCOPY Crohn's disease of both small and large intestine with intestinal obstruction (HCC) 05/22/2024 10:45 AM DRIVER GUARD documented as of this encounter Visit Diagnoses Not on filedocumented in this encounter Care Teams Customs Import Specialist Relationship Specialty Start Date End Date Luis Maya MD [facility] [place] [address] PCP - General 07/23/16 03/17/19 documented as of this encounter
--- OUTSIDE RECORDS SUMMARY | 2024-05-18 22:18 | XMS_ITS | Encounter Summary ---
Author Organization [facility] Healthcare Address [address] [place] [address] Care Team Providers Care Cloth Shrinking Tester Name Role Phone Unavailable Primary Care Provider Unavailabl e Encounter Details Date Type Department Care Team (Late st Contact Info) Description 04/13/2014 3:32 PM RAYON WINDER - 04/21/2014 11:59 PM RAYON WINDER Hospital Encounter [facility] Guzman, Efrain Melo MD [address] [place] [id number] Iron deficiency anemia Social History Tobacco Use Types Packs/Day Years Used Date Smoking Tobacco: Never Assessed Sex and Gender Information Value Date Recorded Sex Assigned at Not on file Legal Sex Male 1:20 AM RAYON WINDER Gender Identity Not on file Sexual Orientation Not on file documented as of this encounter Plan of Treatment Upcoming Encounters Date Type Department Care Team (Late st Contact Info) Description 05/22/2024 10:45 AM RAYON WINDER Hospital Encounter [facility]oscopy [address] [place] [address] Nikolay Boucher MD [address] [facility] [address] [place] [address] 05/22/2024 10:45 AM RAYON WINDER - 05/22/2024 11:15 AM RAYON WINDER Surgery [facility]oscopy [address] [place] [address] Nikolay Boucher MD [address] [place] [address] EGD Scheduled Procedures Name Priority Associated Diagnoses Date/Ti me ESOPHAGOGASTRODUODENOSCOPY Crohn's disease of both small and large intestine with intestinal obstruction (HCC) 05/22/2024 10:45 AM RAYON WINDER documented as of this encounter Visit Diagnoses Diagnosis Iron deficiency anemia Unspecified iron deficiency anemia Crohn's disease of both small and large intestine with intestinal obstruction (HCC) documented in this encounter
--- OUTSIDE RECORDS SUMMARY | 2024-05-18 22:18 | XMS_ITS | Encounter Summary ---
Author Organization [facility] Healthcare Address [address] [place] [address] Care Team Providers Care Director External Communications Name Role Phone Unavailable Primary Care Provider Unavailabl e Encounter Details Date Type Department Care Team (Late st Contact Info) Description 05/04/2013 8:00 AM INTERMEDIATE FRAME TENDER - 05/05/2013 11:59 PM INTERMEDIATE FRAME TENDER Hospital Encounter [facility] Iverson, Shad Melo MD [address] [place] [phone] Iron deficiency anemia Social History Tobacco Use Types Packs/Day Years Used Date Smoking Tobacco: Never Assessed Sex and Gender Information Value Date Recorded Sex Assigned at Not on file Legal Sex Male 1:20 AM INTERMEDIATE FRAME TENDER Gender Identity Not on file Sexual Orientation Not on file documented as of this encounter Plan of Treatment Upcoming Encounters Date Type Department Care Team (Late st Contact Info) Description 05/22/2024 10:45 AM INTERMEDIATE FRAME TENDER Hospital Encounter [facility] [address] [place] [address] Nikolay Boucher MD [address] [facility] [address] [place] [address] 05/22/2024 10:45 AM INTERMEDIATE FRAME TENDER - 05/22/2024 11:15 AM INTERMEDIATE FRAME TENDER Surgery [facility] [address] [place] [address] Nikolay Boucher MD [address] [place] [address] EGD Scheduled Procedures Name Priority Associated Diagnoses Date/Ti me ESOPHAGOGASTRODUODENOSCOPY Crohn's disease of both small and large intestine with intestinal obstruction (HCC) 05/22/2024 10:45 AM INTERMEDIATE FRAME TENDER documented as of this encounter Procedures Procedure Name Priority Date/Time Associated Diagnosis Comments SERUM IRON BINDING CAPACITY Routine 05/05/2013 3:55 PM INTERMEDIATE FRAME TENDER SERUM FERRITIN Routine 05/05/2013 3:55 PM INTERMEDIATE FRAME TENDER BLOOD CELL COUNT (CBC) Routine 05/05/2013 3:47 PM INTERMEDIATE FRAME TENDER DISCHARGE LABORATORY CUMULATIVE REPORT Routine 05/05/2013 12:00 AM INTERMEDIATE FRAME TENDER documented in this encounter Results * Serum ferritin (05/05/2013 3:55 PM INTERMEDIATE FRAME TENDER) Ferritin 114 10 - 244 ng/ml HISTORICAL RESULTS Serum 05/05/2013 3:55 PM INTERMEDIATE FRAME TENDER Shad Iverson MD LAB BLOOD ORDERABLES Fin al Result Performing Organization Address [facility] de Phone Number HISTORICAL RESULTS * Serum iron binding capacity (05/05/2013 3:55 PM INTERMEDIATE FRAME TENDER) Iron 43 24 - 152 mcg/dl HISTORICAL RESULTS TIBC 295 199 - 474 mcg/dl HISTORICAL RESULTS Iron saturation 15 5 - 45 % HIST ORICAL RESULTS Serum 05/05/2013 3:55 PM INTERMEDIATE FRAME TENDER Shad Iverson MD LAB BLOOD ORDERABLES Fin al Result Performing Organization Address [facility] Co de Phone Number HISTORICAL RESULTS * Blood cell count (CBC) (05/05/2013 3:47 PM INTERMEDIATE FRAME TENDER) WBC 9.5 4.5 - 10.6 K/cumm HISTORICAL RESULTS Hgb 15.5 11.0 - 18.1 g/dl HISTORICAL RESULTS RBC 5.04 4.00 - 6.01 M/cumm HISTORICAL RESULTS Hct 46.7 35.0 - 60.0 % HISTORICAL RESULTS MCV 92.6 80.0 - 100.0 fl HISTORICAL RESULTS MCH 30.8 27.0 - 31.0 pg HISTORICAL RESULTS MCHC 33.2 33.0 - 37.0 g/dl HISTORICAL RESULTS Rdw 12.6 11.5 - 14.6 % HISTORICAL RESULTS Platelets 294 150 - 400 K/cumm HISTORICAL RESULTS MPV 7.4 7.4 - 10.4 fl HISTORICAL RESULTS Lymphocytes 22.5 20.0 - 50.0 % HISTORICAL RESULTS Monos 8.5 1.0 - 13.0 % HISTORICAL RESULTS Neutrophils 69.0 30.0 - 70.0 % HISTORICAL RESULTS Lymphocytes, abs 2.1 0.9 - 5.3 K/cumm HISTORICAL RESULTS Monocytes, absolute 0.8 0.1 - 1.1 K/cumm HISTORICAL RESULTS Neutrophils, abs 6.6 1.3 - 7.4 K/cumm HISTORICAL RESULTS Blood specimen (specimen) 05/05/2013 3:47 PM INTERMEDIATE FRAME TENDER us Shad Iverson MD LAB BLOOD ORDERABLES Fin al Result HISTORICAL RESULTS * Discharge Laboratory Cumulative Report (05/05/2013 12:00 AM INTERMEDIATE FRAME TENDER) 05/05/2013 Narrative HISTORICAL RESULTS - 07/05/2013 2:35 AM INTERMEDIATE FRAME TENDER Patient No: [id number] ? [facility] Patient Name: MELLO HERBERT ?[facility] Healthcare Age: 48 YRS ?: 1965 ?Sex:M ?[address] )[id number] ?? Adm Dt: 05/04/2013 ?SHASHI Whittington ??[id number] Created: 07/05/2013 ??0235 ?? Pt. Type: D ? Discharge Dt: 05/05/2013 ? Pathologists: Annel Kelly MD Admit Attend Dr: SHAD IVERSON MD ? BLOOD CELL COUNTS ?Collection Date: ?05/05/13 ?Collection Time: ?1547 ? Ref Range: ?? Units: [4.50-10.60] /CMM ? WBC X 10^3 ?9.50 [4.00-6.01] ??/CMM ? RBC X 10^6 ?5.04 [11.0-18.1] ??G/DL ? HGB ? 15.5 [35.0-60.0] ??% ?HCT ? 46.7 [80.0-100.0] FL ? MCV ? 92.6 [27.0-31.0] ??PG ? MCH ? 30.8 [33.0-37.0] ??% ?MCHC ?33.2 [11.5-14.6] ??% ?RDW ? 12.6 [150-400] ?? /CMM ? PLT X 10^3 ? 294 [7.4-10.4] ??FL ? MPV ?7.4 [20.0-50.0] ??% ?LYMPH PERCENT ? 22.5 [1.0-13.0] ??% ?MONO PERCENT ? 8.5 [30.0-70.0] ??% ?GRANULOCYE % ?69.0 [0.9-5.3] ?? /CMM ? A LYMPH ?2.1 [1.3-7.4] ?? /CMM ? A GRANULOCYTE ?6.6 [0.1-1.1] ?? /CMM ? A MONO ? 0.8 ? GENERAL CHEMISTRY ?Collection Date: ?05/05/13 ?Collection Time: ?1555 ? Ref Range: ?? Units: ??[10-244] ?? NG/ML ?FERRITIN ? 114 ??[24-152] ?? UG/DL ?IRON ?43 [199-474] ?? UG/DL ?TIBC ? 295 ?? [5-45] ?% ?% SATURATION ?15 ?? END OF CHART ? Page: ?? 1 us Historical Provider LAB BLOOD ORDERABLES Ibeth wesley Result HISTORICAL RESULTS documented in this encounter Visit Diagnoses Diagnosis Iron deficiency anemia Unspecified iron deficiency anemia Crohn's disease of both small and large intestine with intestinal obstruction (HCC) documented in this encounter
--- OUTSIDE RECORDS SUMMARY | 2024-05-18 22:18 | XMS_ITS | Encounter Summary ---
Author Organization [facility] Facility Care Team Providers Care Geospatial Developer Name Role Phone Unavailable Primary Care Provider Unavailabl e Encounter Details Date Type Department Care Team (Late st Contact Info) Description 06/17/2013 - 05/26/2014 11:59 PM CONSULTING SERVICES PROJECT MANAGER Hospital Encounter [facility] Valenzuela, Roxanna Morocho MD [address] [place] [address] Regional enteritis (CMS/HCC) (HCC) Social History Tobacco Use Types Packs/Day Years Used Date Smoking Tobacco: Never Assessed Sex and Gender Information Value Date Recorded Sex Assigned at Not on file Legal Sex Male 1:20 AM CONSULTING SERVICES PROJECT MANAGER Gender Identity Not on file Sexual Orientation Not on file documented as of this encounter Plan of Treatment Upcoming Encounters Date Type Department Care Team (Late Contact Info) Description 05/22/2024 10:45 AM CONSULTING SERVICES PROJECT MANAGER Hospital Encounter [facility] Endoscopy [address] [place] [address] Nikolay Boucher MD [address] [place] [address] 05/22/2024 10:45 AM CONSULTING SERVICES PROJECT MANAGER - 05/22/2024 11:15 AM CONSULTING SERVICES PROJECT MANAGER Surgery [facility] Endoscopy [address] [address] Nikolay Boucher MD [address] [place] [address] EGD Scheduled Procedures Name Priority Associated Diagnoses Date/Ti me ESOPHAGOGASTRODUODENOSCOPY Crohn's disease of both small and large intestine with intestinal obstruction (HCC) 05/22/2024 10:45 AM CONSULTING SERVICES PROJECT MANAGER documented as of this encounter Procedures Procedure Name Priority Date/Time Associated Diagnosis Comments DISCHARGE LABORATORY CUMULATIVE REPORT Routine 05/25/2014 9:09 AM CONSULTING SERVICES PROJECT MANAGER PLASMA HEPATIC FUNCTION PANEL Routine 05/24/2014 4:00 PM CONSULTING SERVICES PROJECT MANAGER PLASMA HEPATIC FUNCTION PANEL Routine 09/16/2013 12:08 PM CDT BLOOD CELL COUNT (CBC) Routine 09/16/2013 12:08 PM CDT PLASMA HEPATIC FUNCTION PANEL Routine 06/17/2013 3:15 PM CONSULTING SERVICES PROJECT MANAGER BLOOD CELL COUNT (CBC) Routine 06/17/2013 3:15 PM CONSULTING SERVICES PROJECT MANAGER documented in this encounter Results * Discharge Laboratory Cumulative Report (05/25/2014 9:09 AM CONSULTING SERVICES PROJECT MANAGER) 05/25/2014 9:09 AM CONSULTING SERVICES PROJECT MANAGER Narrative HISTORICAL RESULTS - 05/25/2014 9:09 AM CONSULTING SERVICES PROJECT MANAGER ? [facility] ? Department of Laboratories ? One [facility] ? [place] ?[facility] [address] ?[facility] ?CAM 8-C ? Patient Name: ? MELLO HERBERT Med Rec Number: ?? [id number] Date of : ?1965 Gender/Age: ? Male 49 years Doctor: ? Roxanna Valenzuela M.D. Report Date/Time: 05/25/2014 09:09 ?* Abnormal ??C Critical ??f Footnote ??^ Corrected ??L Low ??H High ?i Interp Data ??@ Reference Lab ?Chart Type: Cumulative ? CHEMISTRY ? Standard Blood Chemistry ?05/24/2014 ??09/16/2013 ?16:00:00 ?12:08:00 Test ?Units ?Reference Total Bilirubin ? 0.8 ? 1.0 ? mg/dL ?0.3-1.1 Bilirubin, Direct ? 0.3 ? 0.3 ? mg/dL ?0.0-0.3 Plasma Total Protein ??7.4 ? 7.0 ? g/dL ? 6.5-8.5 Albumin ? 4.4 ? 4.2 ? g/dL ? 3.6-5.0 Alkaline Phosphatase ??59 ?73 ?Units/L ??38-126 ALT ? 32 ?34 ?Units/L ??7-53 AST ? 31 ?35 ?Units/L ??11-47 ?06/17/2013 ?15:15:13 Test ?Units ?Reference Total Bilirubin ? 0.7 ? mg/dL ?0.3-1.1 Bilirubin, Direct ? 0.3 ? mg/dL ?0.0-0.3 Plasma Total Protein ??6.9 ? g/dL ? 6.5-8.5 Albumin ? 4.3 ? g/dL ? 3.6-5.0 Alkaline Phosphatase ??91 ?Units/L ??38-126 ALT ? 42 ?Units/L ??7-53 AST ? 35 ?Units/L ??11-47 ?HEMATOLOGY ?Standard Hematology ?09/16/2013 ??06/17/2013 ?12:08:23 ?15:15:13 Test ?Units ?? Reference WBC ? 7.6 ? 11.7 ??H ? K/cumm ??3.8-9.8 RBC ? 4.71 ?4.85 ?M/cumm ??4.50-5.70 Hgb ? 13.4 ??L ? 14.1 ?g/dL ?13.8-17.2 Hct ? 40.5 ??L ? 43.8 ?% ? 40.7-50.[address] ? 179 ? 262 ? K/cumm ??140-440 MCV ? 85.9 ?90.3 ?fL ?80.0-97.6 MCH ? 28.5 ?29.1 ?pg ?26.7-33.7 MCHC ?33.2 ?32.3 ??L ? g/dL ?32.7-35.5 ?HEMATOLOGY ?Standard Hematology ?09/16/2013 ??06/17/2013 ?12:08:23 ?15:15:13 Test ?Units ?? Reference RDW ? 16.2 ??H ? 14.2 ?% ? 11.8-14.6 MPV ? 8.4 ? 8.6 ? fL ?6.8-10.4 Neut Pct Auto ?? 72.9 ?72.5 ?% ? 38.7-74.5 Lymph Pct Auto ??17.8 ??L ? 17.0 ??L ? % ? 20.0-54.3 [place] Pct Auto ?? 6.7 ? 7.8 ? % ? 4.3-13.5 Eos Pct Auto ?2.2 ? 2.1 ? % ? 0.0-6.0 Baso Pct Auto ?? 0.4 ? 0.6 ? % ? 0.0-3.0 Neut Abs Auto ?? 5.6 ? 8.5 ??H ?K/cumm ??1.8-6.6 Lymph Abs Auto ??1.4 ? 2.0 ? K/cumm ??1.2-3.3 [place] Abs Auto ?? 0.5 ? 0.9 ? K/cumm ??0.2-1.2 Eos Abs Auto ?0.2 ? 0.2 ? K/cumm ??0.0-0.5 Baso Abs Auto ?? 0.0 ? 0.1 ? K/cumm ??0.0-0.2 ? CANCELLED Collect Date ??Collect Time ??Order Name ? Cancel Reason 09/16/2013 ?12:01:00 ?Hepatic Function Panel, ?NCHG Duplicate ? Plasma us Historical Provider MD LAB BLOOD ORDERABLES Ibeth l Result HISTORICAL RESULTS * Plasma hepatic function panel (05/24/2014 4:00 PM CONSULTING SERVICES PROJECT MANAGER) Protein, pl 7.4 6.5 - 8.5 g/dl HISTORICAL RESULTS Alb 4.4 3.6 - 5.0 g/dl HISTORICAL RESULTS Bilirubin 0.8 0.3 - 1.1 mg/dl HISTORICAL RESULTS Bilirubin, direct 0.3 0.0 - 0.3 mg/dl HISTORICAL RESULTS Alk phos 59 38 - 126 Units/L HISTORICAL RESULTS AST 31 11 - 47 Units/L HISTORICAL RESULTS ALT 32 7 - 53 Units/L HISTORICAL RESULTS Plasma 05/24/2014 4:00 PM CONSULTING SERVICES PROJECT MANAGER Roxanna Valenzuela MD LAB BLOOD ORDERABLE S Final Result Performing Organization Address [facility] de Phone Number HISTORICAL RESULTS * Plasma hepatic function panel (09/16/2013 12:08 PM CDT) Pathologist [facility] Protein, pl 7.0 6.5 - 8.5 g/dl HISTORICAL RESULTS Alb 4.2 3.6 - 5.0 g/dl HISTORICAL RESULTS Bilirubin 1.0 0.3 - 1.1 mg/dl HISTORICAL RESULTS Bilirubin, direct 0.3 0.0 - 0.3 mg/dl HISTORICAL RESULTS Alk phos 73 38 - 126 Units/L HISTORICAL RESULTS AST 35 11 - 47 Units/L HISTORICAL RESULTS ALT 34 7 - 53 Units/L HISTORICAL RESULTS Plasma 09/16/2013 12:0 8 PM CDT Roxanna Valenzuela MD LAB BLOOD ORDERABLE S Final Result Performing Organization Address [facility] de Phone Number HISTORICAL RESULTS * (ABNORMAL) Blood cell count (CBC) (09/16/2013 12:08 PM CDT) WBC 7.6 3.8 - 9.8 K/cumm HISTORICAL RESULTS RBC 4.71 4.50 - 5.70 M/cumm HISTORICAL RESULTS Hgb 13.4(L) 13.8 - 17.2 g/dl HISTORICAL RESULTS Hct 40.5(L) 40.7 - 50.3 % HISTORICAL RESULTS MCV 85.9 80.0 - 97.6 fl HISTORICAL RESULTS MCH 28.5 26.7 - 33.7 pg HISTORICAL RESULTS MCHC 33.2 32.7 - 35.5 g/dl HISTORICAL RESULTS Rdw 16.2(H) 11.8 - 14.6 % HISTORICAL RESULTS Platelets 179 140 - 440 K/cumm HISTORICAL RESULTS MPV 8.4 6.8 - 10.4 fl HISTORICAL RESULTS Neutrophils 72.9 38.7 - 74.5 % HISTORICAL RESULTS Lymphocytes 17.8(L) 20.0 - 54.3 % HISTORICAL RESULTS Monos 6.7 4.3 - 13.5 % HISTORICAL RESULTS Eosinophils 2.2 0.0 - 6.0 % HISTORICAL RESULTS Basophils 0.4 0.0 - 3.0 % HISTORICAL RESULTS Neutrophils, abs 5.6 1.8 - 6.6 K/cumm HISTORICAL RESULTS Lymphocytes, abs 1.4 1.2 - 3.3 K/cumm HISTORICAL RESULTS Monocytes, absolute 0.5 0.2 - 1.2 K/cumm HISTORICAL RESULTS Eosinophils, abs 0.2 0.0 - 0.5 K/cumm HISTORICAL RESULTS Basophils, abs 0.0 0.0 - 0.2 K/cumm HISTORICAL RESULTS Blood specimen (specimen) 09/16/2013 12:08 PM CDT Roxanna Valenzuela MD LAB BLOOD ORDERABLE S Final Result Performing Organization Address City/State/[facility] Co de Phone Number HISTORICAL RESULTS * Plasma hepatic function panel (06/17/2013 3:15 PM CONSULTING SERVICES PROJECT MANAGER) Pathologist [facility] Protein, pl 6.9 6.5 - 8.5 g/dl HISTORICAL RESULTS Alb 4.3 3.6 - 5.0 g/dl HISTORICAL RESULTS Bilirubin 0.7 0.3 - 1.1 mg/dl HISTORICAL RESULTS Bilirubin, direct 0.3 0.0 - 0.3 mg/dl HISTORICAL RESULTS Alk phos 91 38 - 126 Units/L HISTORICAL RESULTS AST 35 11 - 47 Units/L HISTORICAL RESULTS ALT 42 7 - 53 Units/L HISTORICAL RESULTS Plasma 06/17/2013 3:15 PM CONSULTING SERVICES PROJECT MANAGER Roxanna Valenzuela MD LAB BLOOD ORDERABLE S Final Result HISTORICAL RESULTS * (ABNORMAL) Blood cell count (CBC) (06/17/2013 3:15 PM CONSULTING SERVICES PROJECT MANAGER) Pathologist [facility] WBC 11.7(H) 3.8 - 9.8 K/cumm HISTORICAL RESULTS RBC 4.85 4.50 - 5.70 M/cumm HISTORICAL RESULTS Hgb 14.1 13.8 - 17.2 g/dl HISTORICAL RESULTS Hct 43.8 40.7 - 50.3 % HISTORICAL RESULTS MCV 90.3 80.0 - 97.6 fl HISTORICAL RESULTS MCH 29.1 26.7 - 33.7 pg HISTORICAL RESULTS MCHC 32.3(L) 32.7 - 35.5 g/dl HISTORICAL RESULTS Rdw 14.2 11.8 - 14.6 % HISTORICAL RESULTS Platelets 262 140 - 440 K/cumm HISTORICAL RESULTS MPV 8.6 6.8 - 10.4 fl HISTORICAL RESULTS Neutrophils 72.5 38.7 - 74.5 % HISTORICAL RESULTS Lymphocytes 17.0(L) 20.0 - 54.3 % HISTORICAL RESULTS Monos 7.8 4.3 - 13.5 % HISTORICAL RESULTS Eosinophils 2.1 0.0 - 6.0 % HISTORICAL RESULTS Basophils 0.6 0.0 - 3.0 % HISTORICAL RESULTS Neutrophils, abs 8.5(H) 1.8 - 6.6 K/cumm HISTORICAL RESULTS Lymphocytes, abs 2.0 1.2 - 3.3 K/cumm HISTORICAL RESULTS Monocytes, absolute 0.9 0.2 - 1.2 K/cumm HISTORICAL RESULTS Eosinophils, abs 0.2 0.0 - 0.5 K/cumm HISTORICAL RESULTS Basophils, abs 0.1 0.0 - 0.2 K/cumm HISTORICAL RESULTS Blood specimen (specimen) 06/17/2013 3:15 PM CONSULTING SERVICES PROJECT MANAGER Roxanna Valenzuela MD LAB BLOOD ORDERABLE S Final Result HISTORICAL RESULTS documented in this encounter Visit Diagnoses Diagnosis Regional enteritis (CMS/HCC) (HCC) Regional enteritis of unspecified site Crohn's disease of both small and large intestine with intestinal obstruction (HCC) documented in this encounter
--- OUTSIDE RECORDS SUMMARY | 2024-05-18 22:18 | XMS_ITS | Encounter Summary ---
Author Organization [facility] Facility Care Team Providers Care Commercial Lines Manager Name Role Phone Unavailable Primary Care Provider Unavailabl e Encounter Details Date Type Department Care Team (Late st Contact Info) Description 05/06/2013 - 05/06/2013 11:59 PM CORPORATE MEETING PLANNER [facility] Rox[facility] Moroch[facility] MD [address] [place] [address] Regional enteritis (CMS/HCC) (HCC); Cirrhosis of liver (HCC); Portal vein thrombosis; Other diseases of lung; Ileostomy status (CMS/HCC) (HCC) Social History Tobacco Use Types Packs/Day Years Used Date Smoking Tobacco: Never Assessed Sex and Gender Information Value Date Recorded Sex Assigned at Not on file Legal Sex Male 1:20 AM CORPORATE MEETING PLANNER Gender Identity Not on file Sexual Orientation Not on file documented as of this encounter Plan of Treatment Upcoming Encounters Date Type Department Care Team (Late st Contact Info) Description 05/22/2024 10:45 AM CORPORATE MEETING PLANNER Hospital Encounter [facility] [address] [address] Nikolay Boucher MD [address] [place] [address] 05/22/2024 10:45 AM CORPORATE MEETING PLANNER - 05/22/2024 11:15 AM CORPORATE MEETING PLANNER Surgery [facility] [address] [place] [address] Nikolay Boucher MD [address] [place] [address] EGD Scheduled Procedures Name Priority Associated Diagnoses Date/Ti me ESOPHAGOGASTRODUODENOSCOPY Crohn's disease of both small and large intestine with intestinal obstruction (HCC) 05/22/2024 10:45 AM CORPORATE MEETING PLANNER documented as of this encounter Procedures Procedure Name Priority Date/Time Associated Diagnosis Comments MRI ABDOMEN W WO CONTRAST Routine 05/06/2013 9:00 PM CORPORATE MEETING PLANNER BLOOD CREATININE, POINT OF CARE Routine 05/06/2013 7:37 PM CORPORATE MEETING PLANNER DISCHARGE LABORATORY CUMULATIVE REPORT Routine 05/06/2013 12:00 AM CORPORATE MEETING PLANNER documented in this encounter Results * MRI Abdomen WWO Contrast (05/06/2013 9:00 PM CORPORATE MEETING PLANNER) Anatomical Region Laterality Modality Body N/A Magnetic Resonan ce 05/06/2013 9:00 PM CORPORATE MEETING PLANNER Narrative 05/07/2013 7:52 PM CORPORATE MEETING PLANNER SAUL UP M.D. SOBIA WARD M.D. HO FINAL REPORT The radiology attending physician has personally reviewed this study, and has reviewed and/or edited this written report and agrees with it. ACC# ??Date Time ??Exam [id number] May 06, 2013 21:00:00 [id number] MRI Abdomen wwo contrast ACC# ??Date Time ??Exam [id number] May 06, 2013 21:00:00 [id number] MRI Abdomen wwo contrast EXAMINATION: ?MRI OF THE ABDOMEN WITHOUT AND WITH CONTRAST HISTORY: ??47-year-old man with Crohn's disease, status post ileocolectomy for stricture. TECHNIQUE: Magnetic resonance images of the abdomen were obtained prior to and following administration gadolinium. ??Oral Volumen and 1 mg of intravenous glucagon was administered prior to the examination. Protocol: MR enterography Estimated GFR: 54 ml/min/1.73 meters squared Creatinine: 1.4 mg/dL Contrast: Multihance, 17 ml, single dose FINDINGS: Comparison is made to prior MR examination dated 08/16/2010. Again noted are postsurgical changes with partial ileocolic resection with ileocolic anastomosis. The remaining gastrointestinal tract is normal in course and caliber with no evidence of obstruction or stricture. There is no evidence of active inflammation in the remaining gastrointestinal tract. Interval development of ??wedge-shaped areas of confluent fibrosis and atrophy in hepatic segments 5 and 7. The overall liver morphology is irregular. There has been interval development of portal vein thrombosis with cavernous transformation of the portal vein. There is a small focus of clot in the superior mesenteric vein, but this vessel appears patent up to the portal splenic confluence. There been interval development of multiple collateral vessels, including short gastric collaterals and paraesophageal varices. There are no focal hepatic lesions. There is no biliary ductal dilatation or ascites. There there has been interval development of multiple small areas of peripheral wedge-shaped diffusion restriction and subtle T2 hyperintensity in both kidneys. There is no correlate on the postcontrast images. The gallbladder, spleen, pancreas, and adrenal gland are normal. The abdominal aorta is normal in caliber. The celiac artery, superior mesenteric artery and inferior mesenteric artery are patent. Limited evaluation of the lung bases again demonstrate a nonenhancing pulmonary nodule, which has not significantly changed in size and appearance compared to the prior study and measures 2.4 x 1.4 cm on today's study. There is no associated pleural thickening. ?? IMPRESSION: ?? 1. Status post partial ileocolectomy with ileocolic anastomosis. The remaining bowel is normal in course and caliber with no stricture, obstruction, or inflammation. 2. Interval development of wedge-shaped areas of confluent fibrosis and atrophy in hepatic segments 5 and 7 with overall irregularity of the liver morphology. There is no focal hepatic lesion or biliary ductal dilatation. However, future studies could be obtained with MRCP technique to better evaluate biliary ductal dilatation in this patient with Crohn's disease, which has an association with primary sclerosing cholangitis. 3. Interval development of portal vein thrombosis with cavernous transformation as well as formation of multiple other collateral vessels. 4. Interval development of multiple small areas of peripheral wedge-shaped diffusion restriction and subtle T2 hyperintensity in both kidneys with no correlate on postcontrast images. This may be secondary to prior infection, inflammation, infarcts, or small vessel vasculitis. 5. Indeterminant 2.4 x 1.4 cm pulmonary nodule in the left lung base, which has been stable since 2009 and likely benign. ?? Requested By: Roxanna Valenzuela ??Janis Dictated By: ?? Janis ACEVEDO ??on May 07 2013 11:39A This document has been electronically signed by: SAUL UP M.D. on May 07 2013 ??7:52P Procedure Note Provider, MD Shaun - 09/25/2016 SAUL UP M.D. Janis ACEVEDO FINAL REPORT The radiology attending physician has personally reviewed this study, and has reviewed and/or edited this written report and agrees with it. ACC# Date Time Exam [id number] May 06, 2013 21:00:00 [id number] MRI Abdomen wwo contrast ACC# Date Time Exam [id number] May 06, 2013 21:00:00 [id number] MRI Abdomen wwo contrast EXAMINATION: MRI OF THE ABDOMEN WITHOUT AND WITH CONTRAST HISTORY: 47-year-old man with Crohn's disease, status post ileocolectomy for stricture. TECHNIQUE: Magnetic resonance images of the abdomen were obtained prior to and following administration gadolinium. Oral Volumen and 1 mg of intravenous glucagon was administered prior to the examination. Protocol: MR enterography Estimated GFR: 54 ml/min/1.73 meters squared Creatinine: 1.4 mg/dL Contrast: Multihance, 17 ml, single dose FINDINGS: Comparison is made to prior MR examination dated 08/16/2010. Again noted are postsurgical changes with partial ileocolic resection with ileocolic anastomosis. The remaining gastrointestinal tract is normal in course and caliber with no evidence of obstruction or stricture. There is no evidence of active inflammation in the remaining gastrointestinal tract. Interval development of wedge-shaped areas of confluent fibrosis and atrophy in hepatic segments 5 and 7. The overall liver morphology is irregular. There has been interval development of portal vein thrombosis with cavernous transformation of the portal vein. There is a small focus of clot in the superior mesenteric vein, but this vessel appears patent up to the portal splenic confluence. There been interval development of multiple collateral vessels, including short gastric collaterals and paraesophageal varices. There are no focal hepatic lesions. There is no biliary ductal dilatation or ascites. There there has been interval development of multiple small areas of peripheral wedge-shaped diffusion restriction and subtle T2 hyperintensity in both kidneys. There is no correlate on the postcontrast images. The gallbladder, spleen, pancreas, and adrenal gland are normal. The abdominal aorta is normal in caliber. The celiac artery, superior mesenteric artery and inferior mesenteric artery are patent. Limited evaluation of the lung bases again demonstrate a nonenhancing pulmonary nodule, which has not significantly changed in size and appearance compared to the prior study and measures 2.4 x 1.4 cm on today's study. There is no associated pleural thickening. IMPRESSION: 1. Status post partial ileocolectomy with ileocolic anastomosis. The remaining bowel is normal in course and caliber with no stricture, obstruction, or inflammation. 2. Interval development of wedge-shaped areas of confluent fibrosis and atrophy in hepatic segments 5 and 7 with overall irregularity of the liver morphology. There is no focal hepatic lesion or biliary ductal dilatation. However, future studies could be obtained with MRCP technique to better evaluate biliary ductal dilatation in this patient with Crohn's disease, which has an association with primary sclerosing cholangitis. 3. Interval development of portal vein thrombosis with cavernous transformation as well as formation of multiple other collateralvessels. 4. Interval development of multiple small areas of peripheral wedge-shaped diffusion restriction and subtle T2 hyperintensity in both kidneys with no correlate on postcontrast images. This may be secondary to prior infection, inflammation, infarcts, or small vessel vasculitis. 5. Indeterminant 2.4 x 1.4 cm pulmonary nodule in the left lung base, which has been stable since 2009 and likely benign. Requested By: Roxanna Valenzuela M.D. Dictated By: Janis ACEVEDO on May 07 2013 11:39A This document has been electronically signed by: SAUL UP M.D. on May 07 2013 7:52P us Historical Provider MD MOE MRI PROCEDURES Final Result * (ABNORMAL) Blood creatinine, point of care (05/06/2013 7:37 PM CORPORATE MEETING PLANNER) Creatinine, POC, bld 1.4(H) 0.7 - 1.3 mg/dl HISTORICAL RESULTS Blood specimen (specimen) 05/06/2013 7:37 PM CORPORATE MEETING PLANNER us Roxanna Valenzuela MD LAB BLOOD ORDERABLE S Final Result HISTORICAL RESULTS * Discharge Laboratory Cumulative Report (05/06/2013 12:00 AM CORPORATE MEETING PLANNER) 05/06/2013 Narrative HISTORICAL RESULTS - 05/07/2013 3:18 AM CORPORATE MEETING PLANNER ?[facility] ?Department of Laboratories ? [facility] [place] ? [address] [address] Patient Name: ??MELLO HERBERT Med Rec Number: [id number] Fin Number: ?[id number] Date: ?1965 Sex/Age: ? Male 47 years Admit Date: ?05/06/2013 Discharge Date: 05/06/2013 Doctor: ?Roxanna Valenzuela Facility: ?[facility] Location: ?[facility] Chart Printed: 05/07/2013 03:18 ?? * Abnormal ?? C Critical ?? f Footnote ?? ^ Corrected ?? L Low ?? H High ? i Interp Data ?? @ Reference Lab ?Chart Type:Cumulative ?POINT OF CARE TESTS ? Chemistry ?Test: Creat iPOC ? Reference: [0.7-1.3] ? Units: mg/dL 05/06/2013 ?? 19:37:00 ?? 1.4 ??H us Historical Provider LAB BLOOD ORDERABLES Ibeth olson Result HISTORICAL RESULTS documented in this encounter Visit Diagnoses Diagnosis Regional enteritis (CMS/HCC) (HCC) Regional enteritis of unspecified site Cirrhosis of liver (HCC) Cirrhosis of liver without mention of alcohol Portal vein thrombosis Other diseases of lung Ileostomy status (CMS/HCC) (HCC) Ileostomy status Crohn's disease of both small and large intestine with intestinal obstruction (HCC) documented in this encounter
--- OUTSIDE RECORDS SUMMARY | 2024-05-18 22:18 | XMS_ITS | Encounter Summary ---
Author Organization [facility] Facility Care Team Providers Care Transportation Specialist Name Role Phone Unavailable Primary Care Provider Unavailabl e Encounter Details Date Type Department Care Team (Late st Contact Info) Description 06/11/2012 - 06/11/2012 11:59 PM ASSEMBLER 1ST SHIFT Hospital Encounter [facility] Valenzuela, Roxanna Morocho MD [address] [place] [address] Regional enteritis (CMS/HCC) (HCC) Social History Tobacco Use Types Packs/Day Years Used Date Smoking Tobacco: Never Assessed Sex and Gender Information Value Date Recorded Sex Assigned at Not on file Legal Sex Male 1:20 AM ASSEMBLER 1ST SHIFT Gender Identity Not on file Sexual Orientation Not on file documented as of this encounter Plan of Treatment Upcoming Encounters Date Type Department Care Team (Late Contact Info) Description 05/22/2024 10:45 AM ASSEMBLER 1ST SHIFT Hospital Encounter [facility] [address] [place] [address] Nikolay Boucher MD [address] [place] [address] 05/22/2024 10:45 AM ASSEMBLER 1ST SHIFT - 05/22/2024 11:15 AM ASSEMBLER 1ST SHIFT Surgery [facility] [address] [address] Nikolay Boucher MD [address] [place] [address] EGD Scheduled Procedures Name Priority Associated Diagnoses Date/Ti me ESOPHAGOGASTRODUODENOSCOPY Crohn's disease of both small and large intestine with intestinal obstruction (HCC) 05/22/2024 10:45 AM ASSEMBLER 1ST SHIFT documented as of this encounter Procedures Procedure Name Priority Date/Time Associated Diagnosis Comments DISCHARGE LABORATORY CUMULATIVE REPORT Routine 06/12/2012 9:09 AM ASSEMBLER 1ST SHIFT PLASMA HEPATIC FUNCTION PANEL Routine 06/11/2012 5:37 PM ASSEMBLER 1ST SHIFT BLOOD CELL COUNT (CBC) Routine 06/11/2012 5:37 PM ASSEMBLER 1ST SHIFT documented in this encounter Results * Discharge Laboratory Cumulative Report (06/12/2012 9:09 AM ASSEMBLER 1ST SHIFT) 06/12/2012 9:09 AM ASSEMBLER 1ST SHIFT Narrative HISTORICAL RESULTS - 06/12/2012 9:09 AM ASSEMBLER 1ST SHIFT ? [facility] ? Department of Laboratories ?[facility] [address] ?[facility] ?[facility] [address] [address] C Patient Name: ? MELLO HERBERT Med Rec Number: ?? [id number] Date of : ?1965 Gender/Age: ? Male 47 years Doctor: ? Roxanna Valenzuela M.D. Report Date/Time: 06/12/2012 9:09:58 AM ?* Abnormal ??C Critical ??f Footnote ??^ Corrected ??L Low ??H High ?i Interp Data ??@ Reference Lab ?Chart Type: Cumulative ? CHEMISTRY ? Standard Blood Chemistry ?06/11/2012 ?17:37:00 Test ?Units ?Reference Total Bilirubin ? 0.8 ? mg/dL ?0.3-1.1 Bilirubin, Direct ? 0.2 ? mg/dL ?0.0-0.3 Plasma Total Protein ??8.0 ? g/dL ? 6.5-8.5 Albumin ? 4.5 ? g/dL ? 3.6-5.0 Alkaline Phosphatase ??96 ?Units/L ??38-126 ALT ? 26 ?Units/L ??7-53 AST ? 34 ?Units/L ??11-47 ?HEMATOLOGY ?Standard Hematology ?06/11/2012 ?17:37:00 Test ?Units ?? Reference WBC ? 10.2 ??H ? K/cumm ??3.8-9.8 RBC ? 5.27 ?M/cumm ??4.50-5.70 Hgb ? 14.7 ?g/dL ?13.8-17.2 Hct ? 44.2 ?% ? 40.7-50.[address] ? 275 ? K/cumm ??140-440 MCV ? 83.9 ?fL ?80.0-97.6 MCH ? 28.0 ?pg ?26.7-33.7 MCHC ?33.3 ?g/dL ?32.7-35.5 RDW ? 19.7 ??H ? % ? 11.8-14.6 MPV ? 7.7 ? fL ?6.8-10.4 Neut Pct Auto ?? 59.8 ?% ? 38.7-74.5 Lymph Pct Auto ??25.0 ?% ? 20.0-54.3 Cass Pct Auto ?? 11.4 ?% ? 4.3-13.5 Eos Pct Auto ?3.0 ? % ? 0.0-6.0 Baso Pct Auto ?? 0.8 ? % ? 0.0-3.0 Neut Abs Auto ?? 6.1 ? K/cumm ??1.8-6.6 Lymph Abs Auto ??2.6 ? K/cumm ??1.2-3.3 Cass Abs Auto ?? 1.2 ? K/cumm ??0.2-1.2 Eos Abs Auto ?0.3 ? K/cumm ??0.0-0.5 Baso Abs Auto ?? 0.1 ? K/cumm ??0.0-0.2 us Historical Provider MD LAB BLOOD ORDERABLES Ibeth olson Result HISTORICAL RESULTS * Plasma hepatic function panel (06/11/2012 5:37 PM ASSEMBLER 1ST SHIFT) Protein, pl 8.0 6.5 - 8.5 g/dl HISTORICAL RESULTS Alb 4.5 3.6 - 5.0 g/dl HISTORICAL RESULTS Bilirubin 0.8 0.3 - 1.1 mg/dl HISTORICAL RESULTS Bilirubin, direct 0.2 0.0 - 0.3 mg/dl HISTORICAL RESULTS Alk phos 96 38 - 126 Units/L HISTORICAL RESULTS AST 34 11 - 47 Units/L HISTORICAL RESULTS ALT 26 7 - 53 Units/L HISTORICAL RESULTS Plasma 06/11/2012 5:37 PM ASSEMBLER 1ST SHIFT Roxanna Valenzuela MD LAB BLOOD ORDERABLE S Final Result HISTORICAL RESULTS * (ABNORMAL) Blood cell count (CBC) (06/11/2012 5:37 PM ASSEMBLER 1ST SHIFT) WBC 10.2(H) 3.8 - 9.8 K/cumm HISTORICAL RESULTS RBC 5.27 4.50 - 5.70 M/cumm HISTORICAL RESULTS Hgb 14.7 13.8 - 17.2 g/dl HISTORICAL RESULTS Hct 44.2 40.7 - 50.3 % HISTORICAL RESULTS MCV 83.9 80.0 - 97.6 fl HISTORICAL RESULTS MCH 28.0 26.7 - 33.7 pg HISTORICAL RESULTS MCHC 33.3 32.7 - 35.5 g/dl HISTORICAL RESULTS Rdw 19.7(H) 11.8 - 14.6 % HISTORICAL RESULTS Platelets 275 140 - 440 K/cumm HISTORICAL RESULTS MPV 7.7 6.8 - 10.4 fl HISTORICAL RESULTS Neutrophils 59.8 38.7 - 74.5 % HISTORICAL RESULTS Lymphocytes 25.0 20.0 - 54.3 % HISTORICAL RESULTS Monos 11.4 4.3 - 13.5 % HISTORICAL RESULTS Eosinophils 3.0 0.0 - 6.0 % HISTORICAL RESULTS Basophils 0.8 0.0 - 3.0 % HISTORICAL RESULTS Neutrophils, abs 6.1 1.8 - 6.6 K/cumm HISTORICAL RESULTS Lymphocytes, abs 2.6 1.2 - 3.3 K/cumm HISTORICAL RESULTS Monocytes, absolute 1.2 0.2 - 1.2 K/cumm HISTORICAL RESULTS Eosinophils, abs 0.3 0.0 - 0.5 K/cumm HISTORICAL RESULTS Basophils, abs 0.1 0.0 - 0.2 K/cumm HISTORICAL RESULTS Blood specimen (specimen) 06/11/2012 5:37 PM ASSEMBLER 1ST SHIFT us Roxanna Valenzuela MD LAB BLOOD ORDERABLE S Final Result HISTORICAL RESULTS documented in this encounter Visit Diagnoses Diagnosis Regional enteritis (CMS/HCC) (HCC) Regional enteritis of unspecified site Crohn's disease of both small and large intestine with intestinal obstruction (HCC) documented in this encounter
--- OUTSIDE RECORDS SUMMARY | 2024-05-18 22:18 | XMS_ITS | Encounter Summary ---
Author Organization [facility] Facility Care Team Providers Care Buckle Sewer Name Role Phone Unavailable Primary Care Provider Unavailabl e Encounter Details Date Type Department Care Team (Late st Contact Info) Description 02/17/2015 - 02/17/2015 11:59 PM CDT Hospital Encounter [facility] Valenzuela, Roxanna Morocho MD [address] [place] [address] Regional enteritis (CMS/HCC) Social History Tobacco Use Types Packs/Day Years Used Date Smoking Tobacco: Never Assessed Sex and Gender Information Value Date Recorded Sex Assigned at Not on file Legal Sex Male 1:20 AM SCRAPE GATHERER Gender Identity Not on file Sexual Orientation Not on file documented as of this encounter Plan of Treatment Upcoming Encounters Date Type Department Care Team (Late Contact Info) Description 05/22/2024 10:45 AM SCRAPE GATHERER Hospital Encounter [facility] [address] [place] [address] Nikolay Boucher MD [address] [place] [address] 05/22/2024 10:45 AM SCRAPE GATHERER - 05/22/2024 11:15 AM SCRAPE GATHERER Surgery [facility] [address] [address] Nikolay Boucher MD [address] [place] [address] EGD Scheduled Procedures Name Priority Associated Diagnoses Date/Ti me ESOPHAGOGASTRODUODENOSCOPY Crohn's disease of both small and large intestine with intestinal obstruction (HCC) 05/22/2024 10:45 AM SCRAPE GATHERER documented as of this encounter Procedures Procedure Name Priority Date/Time Associated Diagnosis Comments PLASMA HEPATIC FUNCTION PANEL Routine 02/17/2015 10:42 AM CDT DISCHARGE LABORATORY CUMULATIVE REPORT 02/17/2015 documented in this encounter Results * (ABNORMAL) Plasma hepatic function panel (02/17/2015 10:42 AM CDT) Protein, pl 7.3 6.5 - 8.5 g/dl HISTORICAL RESULTS Alb 4.5 3.6 - 5.0 g/dl HISTORICAL RESULTS Bilirubin 0.9 0.3 - 1.1 mg/dl HISTORICAL RESULTS Bilirubin, direct 0.3 0.0 - 0.3 mg/dl HISTORICAL RESULTS Alk phos 74 38 - 126 Units/L HISTORICAL RESULTS AST 44 11 - 47 Units/L HISTORICAL RESULTS ALT 60(H) 7 - 53 Units/L HISTORICAL RESULTS Plasma 02/17/2015 10:4 2 AM CDT us Roxanna Valenzuela MD LAB BLOOD ORDERABLE S Final Result HISTORICAL RESULTS * DISCHARGE LABORATORY CUMULATIVE REPORT (02/17/2015) Narrative 02/17/2015 Ordered by an unspecified provider. us Historical Provider LAB BLOOD ORDERABLES Ibeth l Result documented in this encounter Visit Diagnoses Diagnosis Regional enteritis (CMS/HCC) (HCC) Regional enteritis of unspecified site Crohn's disease of both small and large intestine with intestinal obstruction (HCC) documented in this encounter
--- OUTSIDE RECORDS SUMMARY | 2024-05-18 22:18 | XMS_ITS | Encounter Summary ---
Author Organization [facility] Facility Care Team Providers Care Grain Spouter Name Role Phone Unavailable Primary Care Provider Unavailabl e Encounter Details Date Type Department Care Team (Late st Contact Info) Description 04/20/2013 6:26 AM FINISHER BRUSH - 04/20/2013 4:00 PM FINISHER BRUSH Hospital Encounter [facility] Roxanna Irene MD [address] [place] [address] Regional enteritis of small intestine with large intestine (HCC); Intestinal bypass or anastomosis status; Anxiety state Social History Tobacco Use Types Packs/Day Years Used Date Smoking Tobacco: Never Assessed Sex and Gender Information Value Date Recorded Sex Assigned at Not on file Legal Sex Male 1:20 AM FINISHER BRUSH Gender Identity Not on file Sexual Orientation Not on file documented as of this encounter Plan of Treatment Upcoming Encounters Date Type Department Care Team (Late st Contact Info) Description 05/22/2024 10:45 AM FINISHER BRUSH Hospital Encounter [facility] [address] [place] [address] Nikolay Boucher MD [address] [place] [address] 05/22/2024 10:45 AM FINISHER BRUSH - 05/22/2024 11:15 AM FINISHER BRUSH Surgery [facility] [address] [address] Nikolay Boucher MD [address] [place] [address] EGD Scheduled Procedures Name Priority Associated Diagnoses Date/Ti me ESOPHAGOGASTRODUODENOSCOPY Crohn's disease of both small and large intestine with intestinal obstruction (HCC) 05/22/2024 10:45 AM FINISHER BRUSH documented as of this encounter Procedures Procedure Name Priority Date/Time Associated Diagnosis Comments COLONOSCOPY REPORT 04/20/2013 SURGICAL PATHOLOGY 04/20/2013 documented in this encounter Results * Surgical pathology (04/20/2013) Narrative 04/20/2013 Ordered by an unspecified provider. us Historical Provider LAB PATHOLOGY ORDERABLES Final Result * COLONOSCOPY REPORT (04/20/2013) Anatomical Region Laterality Modality Other Narrative 04/20/2013 Ordered by an unspecified provider. us Historical Provider GI PROCEDURE ORDERABLES F inal Result documented in this encounter Visit Diagnoses Diagnosis Regional enteritis of small intestine with large intestine (HCC) Regional enteritis of small intestine with large intestine Intestinal bypass or anastomosis status Anxiety state Anxiety state, unspecified Crohn's disease of both small and large intestine with intestinal obstruction (HCC) documented in this encounter
--- OUTSIDE RECORDS SUMMARY | 2024-05-18 22:18 | XMS_ITS | Encounter Summary ---
Author Organization [facility] Healthcare Address [address] [place] [address] Care Team Providers Care Supervisor Of Operations Name Role Phone Unavailable Primary Care Provider Unavailabl e Encounter Details Date Type Department Care Team (Late st Contact Info) Description 12/22/2012 8:00 AM CDT - 02/09/2013 11:59 PM CDT Hospital Encounter [facility] Guzman, Efrain Melo MD [address] [place] [id number] Iron deficiency anemia Social History Tobacco Use Types Packs/Day Years Used Date Smoking Tobacco: Never Assessed Sex and Gender Information Value Date Recorded Sex Assigned at Not on file Legal Sex Male 1:20 AM INPATIENT CODER Gender Identity Not on file Sexual Orientation Not on file documented as of this encounter Plan of Treatment Upcoming Encounters Date Type Department Care Team (Late st Contact Info) Description 05/22/2024 10:45 AM INPATIENT CODER Hospital Encounter [facility] Endoscopy [address] [place] [address] Nikolay Boucher MD [facility] [address] [place] [address] 05/22/2024 10:45 AM INPATIENT CODER - 05/22/2024 11:15 AM INPATIENT CODER Surgery [facility] Endoscopy [address] [place] [address] Nikolay Boucher MD [address] [place] [address] EGD Scheduled Procedures Name Priority Associated Diagnoses Date/Ti ok ESOPHAGOGASTRODUODENOSCOPY Crohn's disease of both small and large intestine with intestinal obstruction (HCC) 05/22/2024 10:45 AM INPATIENT CODER documented as of this encounter Procedures Procedure Name Priority Date/Time Associated Diagnosis Comments BLOOD CELL COUNT (CBC) Routine 02/09/2013 4:03 PM CDT SERUM IRON BINDING CAPACITY Routine 02/09/2013 4:00 PM CDT SERUM FERRITIN Routine 02/09/2013 4:00 PM CDT SERUM IRON BINDING CAPACITY Routine 12/22/2012 3:55 PM CDT SERUM FERRITIN Routine 12/22/2012 3:55 PM CDT BLOOD WBC CELL MORPHOLOGIC EXAM, AUTO Routine 12/22/2012 3:55 PM CDT BLOOD CELL COUNT (CBC) Routine 12/22/2012 3:55 PM CDT documented in this encounter Results * (ABNORMAL) Blood cell count (CBC) (02/09/2013 4:03 PM CDT) Rdw 14.3 11.5 - 14.6 % HISTORICAL RESULTS WBC 7.1 4.5 - 10.6 K/cumm HISTORICAL RESULTS Platelets 224 150 - 400 K/cumm HISTORICAL RESULTS RBC 4.47 4.00 - 6.01 M/cumm HISTORICAL RESULTS MPV 7.5 7.4 - 10.4 fl HISTORICAL RESULTS Hgb 14.1 11.0 - 18.1 g/dl HISTORICAL RESULTS Lymphocytes 28.3 20.0 - 50.0 % HISTORICAL RESULTS Hct 41.3 35.0 - 60.0 % HISTORICAL RESULTS Monos 10.5 1.0 - 13.0 % HISTORICAL RESULTS MCV 92.4 80.0 - 100.0 fl HISTORICAL RESULTS Neutrophils 61.2 30.0 - 70.0 % HISTORICAL RESULTS MCH 31.5(H) 27.0 - 31.0 pg HISTORICAL RESULTS Lymphocytes, abs 2.0 0.9 - 5.3 K/cumm HISTORICAL RESULTS MCHC 34.1 33.0 - 37.0 g/dl HISTORICAL RESULTS Monocytes, absolute 0.7 0.1 - 1.1 K/cumm HISTORICAL RESULTS Neutrophils, abs 4.3 1.3 - 7.4 K/cumm HISTORICAL RESULTS Blood specimen (specimen) 02/09/2013 4:03 PM CDT Efrain Guzman MD LAB BLOOD ORDERABLES Fin al Result Performing Organization Address City/[facility] de Phone Number HISTORICAL RESULTS * (ABNORMAL) Serum ferritin (02/09/2013 4:00 PM CDT) Ferritin 373(H) 10 - 244 ng/ml HISTORICAL RESULTS Serum 02/09/2013 4:00 PM CDT Efrain Guzman MD LAB BLOOD ORDERABLES Fin al Result Performing Organization Address [facility] de Phone Number HISTORICAL RESULTS * Serum iron binding capacity (02/09/2013 4:00 PM CDT) Iron 95 24 - 152 mcg/dl HISTORICAL RESULTS TIBC 258 199 - 474 mcg/dl HISTORICAL RESULTS Iron saturation 37 5 - 45 % HIST ORICAL RESULTS Serum 02/09/2013 4:00 PM CDT Efrain Guzman MD LAB BLOOD ORDERABLES Fin al Result Performing Organization Address [facility] Co de Phone Number HISTORICAL RESULTS * Serum iron binding capacity (12/22/2012 3:55 PM CDT) Iron 43 24 - 152 mcg/dl HISTORICAL RESULTS TIBC 354 199 - 474 mcg/dl HISTORICAL RESULTS Iron saturation 12 5 - 45 % HIST ORICAL RESULTS Serum 12/22/2012 3:55 PM CDT Efrain Guzman MD LAB BLOOD ORDERABLES Fin al Result Performing Organization Address [facility] de Phone Number HISTORICAL RESULTS * Serum ferritin (12/22/2012 3:55 PM CDT) Pathologist [facility] Ferritin 16 10 - 244 ng/ml HISTORICAL RESULTS Serum 12/22/2012 3:55 PM CDT Efrain Guzman MD LAB BLOOD ORDERABLES Fin al Result Performing Organization Address [facility] de Phone Number HISTORICAL RESULTS * (ABNORMAL) Blood cell count (CBC) (12/22/2012 3:55 PM CDT) Pathologist [facility] WBC 18.6(H) 4.0 - 10.5 K/cumm HISTORICAL RESULTS RBC 4.94 4.60 - 6.20 M/cumm HISTORICAL RESULTS Hgb 14.7 14.0 - 18.0 g/dl HISTORICAL RESULTS Hct 43.7 40.0 - 54.0 % HISTORICAL RESULTS MCV 88.5 77.0 - 97.0 fl HISTORICAL RESULTS MCH 29.8 23.0 - 34.0 pg HISTORICAL RESULTS MCHC 33.6 32.0 - 36.0 g/dl HISTORICAL RESULTS Rdw 14.8(H) 11.5 - 14.5 % HISTORICAL RESULTS Platelets 220 150 - 451 K/cumm HISTORICAL RESULTS MPV 10.2 7.4 - 10.4 fl HISTORICAL RESULTS Blood specimen (specimen) 12/22/2012 3:55 PM CDT Efrain Guzman MD LAB BLOOD ORDERABLES Fin al Result Performing Organization Address [facility] de Phone Number HISTORICAL RESULTS * (ABNORMAL) Blood WBC cell morphologic exam, auto (12/22/2012 3:55 PM CDT) Pathologist [facility] Lymphocytes 9.6(L) 25.0 - 33.0 % HISTORICAL RESULTS Monos 7.2 1.0 - 13.0 % HISTORICAL RESULTS Neutrophils 81.8(H) 54.0 - 69.0 % HISTORICAL RESULTS Eosinophils 0.1 0.0 - 10.0 % HISTORICAL RESULTS Basophils 0.1 0.0 - 1.0 % HISTORICAL RESULTS Immature granulocytes 1.2(H) 0.0 - 1.0 % HISTORICAL RESULTS Lymphocytes, abs 1.8 1.2 - 3.4 K/cumm HISTORICAL RESULTS Monocytes, absolute 1.3 1.1 - 1.9 K/cumm HISTORICAL RESULTS Neutrophils, abs 15.2(H) 1.4 - 6.5 K/cumm HISTORICAL RESULTS Eosinophils, abs 0.0 0.0 - 0.7 cells/cum m HISTORICAL RESULTS Basophils, abs 0.0 0.0 - 0.2 K/cumm HISTORICAL RESULTS Immature granulocyte, abs 2.2(H) 0.0 - 0.0 K/cumm HISTORICAL RESULTS Blood specimen (specimen) 12/22/2012 3:55 PM CDT Efrain Guzman MD LAB BLOOD ORDERABLES Fin al Result HISTORICAL RESULTS documented in this encounter Visit Diagnoses Diagnosis Iron deficiency anemia Unspecified iron deficiency anemia Crohn's disease of both small and large intestine with intestinal obstruction (HCC) documented in this encounter
--- OUTSIDE RECORDS SUMMARY | 2024-05-18 22:18 | XMS_ITS | Encounter Summary ---
Author Organization [facility] Healthcare Address [address] [place] [address] Care Team Providers Care Shipping Track Supervisor Name Role Phone Unavailable Primary Care Provider Unavailabl e Encounter Details Date Type Department Care Team (Late st Contact Info) Description 09/26/2012 9:55 AM CDT - 10/02/2012 11:59 PM CDT Hospital Encounter [facility] Iverson, Shad Melo MD [address] [place] [id number] Iron deficiency anemia Social History Tobacco Use Types Packs/Day Years Used Date Smoking Tobacco: Never Assessed Sex and Gender Information Value Date Recorded Sex Assigned at Not on file Legal Sex Male 1:20 AM EMERGENCY MEDICAL TECHNICIAN BASIC Gender Identity Not on file Sexual Orientation Not on file documented as of this encounter Plan of Treatment Upcoming Encounters Date Type Department Care Team (Late st Contact Info) Description 05/22/2024 10:45 AM EMERGENCY MEDICAL TECHNICIAN BASIC Hospital Encounter [facility] Endoscopy [address] [place] [address] Nikolay Boucher MD [facility] [address] [place] [address] 05/22/2024 10:45 AM EMERGENCY MEDICAL TECHNICIAN BASIC - 05/22/2024 11:15 AM EMERGENCY MEDICAL TECHNICIAN BASIC Surgery [facility]oscopy [address] [place] [address] Nikolay Boucher MD [address] [place] [address] EGD Scheduled Procedures Name Priority Associated Diagnoses Date/Ti me ESOPHAGOGASTRODUODENOSCOPY Crohn's disease of both small and large intestine with intestinal obstruction (HCC) 05/22/2024 10:45 AM EMERGENCY MEDICAL TECHNICIAN BASIC documented as of this encounter Procedures Procedure Name Priority Date/Time Associated Diagnosis Comments DISCHARGE LABORATORY CUMULATIVE REPORT Routine 10/02/2012 12:00 AM CDT SERUM IRON BINDING CAPACITY Routine 09/26/2012 10:10 AM CDT SERUM FERRITIN Routine 09/26/2012 10:10 AM CDT BLOOD CELL COUNT (CBC) Routine 09/26/2012 10:07 AM CDT documented in this encounter Results * Discharge Laboratory Cumulative Report (10/02/2012 12:00 AM CDT) 10/02/2012 Narrative HISTORICAL RESULTS - 12/02/2012 12:27 AM CDT Patient No: [id number] ? [facility] Patient Name: MELLO HERBERT ?[facility] Healthcare Age: 47 YRS ?: 1965 ?Sex:M ?[address] )[phone] ?? Adm Dt: 09/26/2012 ?[place] ??[id number] Created: 12/02/2012 ??0027 ?? Pt. Type: D ? Discharge Dt: 10/02/2012 ? Pathologists: Annel Kelly MD Admit Dr. Myers Dr: SHAD IVERSON MD ? BLOOD CELL COUNTS ?Collection Date: ?09/26/12 ?Collection Time: ?1007 ? Ref Range: ?? Units: [4.50-10.60] /CMM ? WBC X 10^3 ?9.50 [4.00-6.01] ??/CMM ? RBC X 10^6 ?5.54 [11.0-18.1] ??G/DL ? HGB ? 17.2 [35.0-60.0] ??% ?HCT ? 49.4 [80.0-100.0] FL ? MCV ? 89.2 [27.0-31.0] ??PG ? MCH ? 31.0 [33.0-37.0] ??% ?MCHC ?34.8 [11.5-14.6] ??% ?RDW ? 14.8 H [150-400] ?? /CMM ? PLT X 10^3 ? 229 [7.4-10.4] ??FL ? MPV ?7.5 [20.0-50.0] ??% ?LYMPH PERCENT ? 21.9 [1.0-13.0] ??% ?MONO PERCENT ?10.7 [30.0-70.0] ??% ?GRANULOCYE % ?67.4 [0.9-5.3] ?? /CMM ? A LYMPH ?2.1 [1.3-7.4] ?? /CMM ? A GRANULOCYTE ?6.4 [0.1-1.1] ?? /CMM ? A MONO ? 1.0 ? GENERAL CHEMISTRY ?Collection Date: ?05/03/13 ?Collection Time: ?1010 ? Ref Range: ?? Units: ??[10-244] ?? NG/ML ?FERRITIN ?47 ??[24-152] ?? UG/DL ?IRON ? 110 [199-474] ?? UG/DL ?TIBC ? 399 ?? [5-45] ?% ?% SATURATION ?28 Footnotes and Symbols: H = High ?? END OF CHART ? Page: ?? 1 Historical Provider MD LAB BLOOD ORDERABLES Ibeth l Result Performing Organization Address [facility] de Phone Number HISTORICAL RESULTS * Serum ferritin (09/26/2012 10:10 AM CDT) Ferritin 47 10 - 244 ng/ml HISTORICAL RESULTS Serum 09/26/2012 10:1 0 AM CDT Shad Iverson MD LAB BLOOD ORDERABLES Fin al Result Performing Organization Address [facility] de Phone Number HISTORICAL RESULTS * Serum iron binding capacity (09/26/2012 10:10 AM CDT) Iron 110 24 - 152 mcg/dl HISTORICAL RESULTS TIBC 399 199 - 474 mcg/dl HISTORICAL RESULTS Iron saturation 28 5 - 45 % HIST ORICAL RESULTS Serum 09/26/2012 10:1 0 AM CDT Shad Iverson MD LAB BLOOD ORDERABLES Fin al Result Performing Organization Address [facility] de Phone Number HISTORICAL RESULTS * (ABNORMAL) Blood cell count (CBC) (09/26/2012 10:07 AM CDT) WBC 9.5 4.5 - 10.6 K/cumm HISTORICAL RESULTS RBC 5.54 4.00 - 6.01 M/cumm HISTORICAL RESULTS Hgb 17.2 11.0 - 18.1 g/dl HISTORICAL RESULTS Hct 49.4 35.0 - 60.0 % HISTORICAL RESULTS MCV 89.2 80.0 - 100.0 fl HISTORICAL RESULTS MCH 31.0 27.0 - 31.0 pg HISTORICAL RESULTS MCHC 34.8 33.0 - 37.0 g/dl HISTORICAL RESULTS Rdw 14.8(H) 11.5 - 14.6 % HISTORICAL RESULTS Platelets 229 150 - 400 K/cumm HISTORICAL RESULTS MPV 7.5 7.4 - 10.4 fl HISTORICAL RESULTS Lymphocytes 21.9 20.0 - 50.0 % HISTORICAL RESULTS Monos 10.7 1.0 - 13.0 % HISTORICAL RESULTS Neutrophils 67.4 30.0 - 70.0 % HISTORICAL RESULTS Lymphocytes, abs 2.1 0.9 - 5.3 K/cumm HISTORICAL RESULTS Monocytes, absolute 1.0 0.1 - 1.1 K/cumm HISTORICAL RESULTS Neutrophils, abs 6.4 1.3 - 7.4 K/cumm HISTORICAL RESULTS Blood specimen (specimen) 09/26/2012 10:07 AM CDT us Shad Iverson MD LAB BLOOD ORDERABLES Fin al Result HISTORICAL RESULTS documented in this encounter Visit Diagnoses Diagnosis Iron deficiency anemia Unspecified iron deficiency anemia Crohn's disease of both small and large intestine with intestinal obstruction (HCC) documented in this encounter
--- OUTSIDE RECORDS SUMMARY | 2024-05-18 22:18 | XMS_ITS | Encounter Summary ---
Author Organization [facility] Facility Care Team Providers Care Media Analyst Name Role Phone Unavailable Primary Care Provider Unavailabl e Encounter Details Date Type Department Care Team (Late st Contact Info) Description 05/07/2014 6:02 AM DEPENDENCY DIRECTOR - 05/07/2014 9:34 AM DEPENDENCY DIRECTOR Hospital Encounter [facility] Roxanna Irene MD [address] [place] [address] Special screening for malignant neoplasms, colon; Regional enteritis (CMS/HCC) (HCC); Other specified disorders of intestines Social History Tobacco Use Types Packs/Day Years Used Date Smoking Tobacco: Never Assessed Sex and Gender Information Value Date Recorded Sex Assigned at Not on file Legal Sex Male 1:20 AM DEPENDENCY DIRECTOR Gender Identity Not on file Sexual Orientation Not on file documented as of this encounter Plan of Treatment Upcoming Encounters Date Type Department Care Team (Late st Contact Info) Description 05/22/2024 10:45 AM DEPENDENCY DIRECTOR Hospital Encounter [facility] Endoscopy [address] [address] Nikolay Boucher MD [address] [place] [address] 05/22/2024 10:45 AM DEPENDENCY DIRECTOR - 05/22/2024 11:15 AM DEPENDENCY DIRECTOR Surgery [facility] Endoscopy [address] [address] Nikolay Boucher MD [address] [place] [address] EGD Scheduled Procedures Name Priority Associated Diagnoses Date/Ti me ESOPHAGOGASTRODUODENOSCOPY Crohn's disease of both small and large intestine with intestinal obstruction (HCC) 05/22/2024 10:45 AM DEPENDENCY DIRECTOR documented as of this encounter Procedures Procedure Name Priority Date/Time Associated Diagnosis Comments UPPER GASTROINTESTINAL ENDOSCOPY REPORT 05/07/2014 COLONOSCOPY REPORT 05/07/2014 documented in this encounter Results * UPPER GASTROINTESTINAL ENDOSCOPY REPORT (05/07/2014) Anatomical Region Laterality Modality Other Narrative 05/07/2014 Ordered by an unspecified provider. us Historical Provider GI PROCEDURE ORDERABLES F inal Result * COLONOSCOPY REPORT (05/07/2014) Anatomical Region Laterality Modality Other Narrative 05/07/2014 Ordered by an unspecified provider. us Historical Provider GI PROCEDURE ORDERABLES F inal Result documented in this encounter Visit Diagnoses Diagnosis Special screening for malignant neoplasms, colon Regional enteritis (CMS/HCC) (HCC) Regional enteritis of unspecified site Other specified disorders of intestines Crohn's disease of both small and large intestine with intestinal obstruction (HCC) documented in this encounter
--- OUTSIDE RECORDS SUMMARY | 2024-05-18 22:18 | XMS_ITS | Encounter Summary ---
Author Organization [facility] Facility Care Team Providers Care Screener Perfumer Name Role Phone Unavailable Primary Care Provider Unavailabl e Encounter Details Date Type Department Care Team (Late st Contact Info) Description 12/23/2014 - 05/26/2015 11:59 PM PHERESIS NURSE Hospital Encounter [facility] EILEEN Valenzuela, Roxanna Morocho MD [address] [place] [address] Crohn's disease without complication ([facility]/HCC) Social History Tobacco Use Types Packs/Day Years Used Date Smoking Tobacco: Never Assessed Sex and Gender Information Value Date Recorded Sex Assigned at Not on file Legal Sex Male 1:20 AM PHERESIS NURSE Gender Identity Not on file Sexual Orientation Not on file documented as of this encounter Plan of Treatment Upcoming Encounters Date Type Department Care Team (Late Contact Info) Description 05/22/2024 10:45 AM PHERESIS NURSE Hospital Encounter [facility] Endoscopy [address] [place] [address] Nikolay Boucher MD [address] [place] [address] 05/22/2024 10:45 AM PHERESIS NURSE - 05/22/2024 11:15 AM PHERESIS NURSE Surgery [facility] Endoscopy [address] [address] Nikolay Boucher MD [address] [place] [address] EGD Scheduled Procedures Name Priority Associated Diagnoses Date/Ti me ESOPHAGOGASTRODUODENOSCOPY Crohn's disease of both small and large intestine with intestinal obstruction (HCC) 05/22/2024 10:45 AM PHERESIS NURSE documented as of this encounter Procedures Procedure Name Priority Date/Time Associated Diagnosis Comments DISCHARGE LABORATORY CUMULATIVE REPORT 05/26/2015 PLASMA HEPATIC FUNCTION PANEL Routine 12/23/2014 12:46 PM CDT BLOOD CELL COUNT (CBC) Routine 12/23/2014 12:46 PM CDT documented in this encounter Results * DISCHARGE LABORATORY CUMULATIVE REPORT (05/26/2015) Narrative 05/26/2015 Ordered by an unspecified provider. us Historical Provider LAB BLOOD ORDERABLES Ibeth l Result * (ABNORMAL) Plasma hepatic function panel (12/23/2014 12:46 PM CDT) Protein, pl 7.4 6.5 - 8.5 g/dl HISTORICAL RESULTS Alb 4.5 3.6 - 5.0 g/dl HISTORICAL RESULTS Bilirubin 1.2(H) 0.3 - 1.1 mg/dl HISTORICAL RESULTS Bilirubin, direct 0.4(H) 0.0 - 0.3 mg/dl HISTORICAL RESULTS Alk phos 80 38 - 126 Units/L HISTORICAL RESULTS AST 40 11 - 47 Units/L HISTORICAL RESULTS ALT 59(H) 7 - 53 Units/L HISTORICAL RESULTS Plasma 12/23/2014 12:4 6 PM CDT Roxanna Valenzuela MD LAB BLOOD ORDERABLE S Final Result HISTORICAL RESULTS * (ABNORMAL) Blood cell count (CBC) (12/23/2014 12:46 PM CDT) MCV 89.8 80.0 - 97.6 fl HISTORICAL RESULTS WBC 6.9 3.8 - 9.8 K/cumm HISTORICAL RESULTS MCH 29.2 26.7 - 33.7 pg HISTORICAL RESULTS RBC 5.48 4.50 - 5.70 M/cumm HISTORICAL RESULTS MCHC 32.5(L) 32.7 - 35.5 g/dl HISTORICAL RESULTS Hgb 16.0 13.8 - 17.2 g/dl HISTORICAL RESULTS Rdw 13.2 11.8 - 14.6 % HISTORICAL RESULTS Hct 49.2 40.7 - 50.3 % HISTORICAL RESULTS Platelets 222 140 - 440 K/cumm HISTORICAL RESULTS MPV 8.6 6.8 - 10.4 fl HISTORICAL RESULTS Neutrophils 59.9 38.7 - 74.5 % HISTORICAL RESULTS Lymphocytes 26.4 20.0 - 54.3 % HISTORICAL RESULTS Monos 9.1 4.3 - 13.5 % HISTORICAL RESULTS Eosinophils 4.0 0.0 - 6.0 % HISTORICAL RESULTS Basophils 0.6 0.0 - 3.0 % HISTORICAL RESULTS Neutrophils, abs 4.1 1.8 - 6.6 K/cumm HISTORICAL RESULTS Lymphocytes, abs 1.8 1.2 - 3.3 K/cumm HISTORICAL RESULTS Monocytes, absolute 0.6 0.2 - 1.2 K/cumm HISTORICAL RESULTS Eosinophils, abs 0.3 0.0 - 0.5 K/cumm HISTORICAL RESULTS Basophils, abs 0.0 0.0 - 0.2 K/cumm HISTORICAL RESULTS Blood specimen (specimen) 12/23/2014 12:46 PM CDT Roxanna Valenzuela MD LAB BLOOD ORDERABLE S Final Result HISTORICAL RESULTS documented in this encounter Visit Diagnoses Diagnosis Crohn's disease without complication (CMS/HCC) (HCC) Crohn's disease of both small and large intestine with intestinal obstruction (HCC) documented in this encounter
--- OUTSIDE RECORDS SUMMARY | 2024-05-18 22:18 | XMS_ITS | Encounter Summary ---
Author Organization [facility] Facility Care Team Providers Care Dictionary Editor Name Role Phone Unavailable Primary Care Provider Unavailabl e Encounter Details Date Type Department Care Team (Late st Contact Info) Description 12/07/2014 - 05/26/2015 11:59 PM JAVA ANALYST Hospital Encounter [facility] Eleanor Bautista MD [address] [place] [address] Portal vein thrombosis Social History Tobacco Use Types Packs/Day Years Used Date Smoking Tobacco: Never Assessed Sex and Gender Information Value Date Recorded Sex Assigned at Not on file Legal Sex Male 1:20 AM JAVA ANALYST Gender Identity Not on file Sexual Orientation Not on file documented as of this encounter Plan of Treatment Upcoming Encounters Date Type Department Care Team (Late st Contact Info) Description 05/22/2024 10:45 AM JAVA ANALYST Hospital Encounter [facility]oscopy [id number] [place] [address] Nikolay Boucher MD [address] [place] [address] 05/22/2024 10:45 AM JAVA ANALYST - 05/22/2024 11:15 AM JAVA ANALYST Surgery [facility] Endoscopy [address] [place] [address] Nikolay Boucher MD [address] [place] [address] EGD Scheduled Procedures Name Priority Associated Diagnoses Date/Ti fl ESOPHAGOGASTRODUODENOSCOPY Crohn's disease of both small and large intestine with intestinal obstruction (HCC) 05/22/2024 10:45 AM JAVA ANALYST documented as of this encounter Procedures Procedure Name Priority Date/Time Associated Diagnosis Comments DISCHARGE LABORATORY CUMULATIVE REPORT 05/26/2015 SERUM IRON PROFILE Routine 05/11/2015 11 :00 AM JAVA ANALYST SERUM FERRITIN Routine 05/11/2015 11:00 AM JAVA ANALYST BLOOD RETICULOCYTE COUNT Routine 05/11/2015 10:50 AM JAVA ANALYST BLOOD CELL COUNT Routine 05/11/2015 10:5 0 AM JAVA ANALYST BLOOD RETICULOCYTE COUNT Routine 02/17/2015 10:43 AM CDT BLOOD CELL COUNT Routine 02/17/2015 10:4 3 AM CDT SERUM IRON PROFILE Routine 02/17/2015 10 :42 AM CDT SERUM FERRITIN Routine 02/17/2015 10:42 AM CDT SERUM 25-HYDROXYCHOLECALCIFE ROL (VITAMIN D) Routine 02/17/2015 10:42 AM CDT BLOOD RETICULOCYTE COUNT Routine 12/07/2014 12:17 PM CDT BLOOD CELL COUNT Routine 12/07/2014 12:1 7 PM CDT SERUM LACTATE DEHYDROGENASE (LDH) Routine 12/07/2014 12:16 PM CDT SERUM IRON PROFILE Routine 12/07/2014 12 :16 PM CDT SERUM FERRITIN Routine 12/07/2014 12:16 PM CDT documented in this encounter Results * DISCHARGE LABORATORY CUMULATIVE REPORT (05/26/2015) Narrative 05/26/2015 Ordered by an unspecified provider. [facility] Provider LAB BLOOD ORDERABLES Ibeth l Result * Serum iron profile (05/11/2015 11:00 AM JAVA ANALYST) Iron 82 45 - 160 mcg/dl HISTORICAL RESULTS UIBC 270 mcg/dl HISTORICAL RESULTS TIBC 352 220 - 420 mcg/dl HISTORICAL RESULTS Transferrin saturation 23 20 - 50 % HISTORICAL RESULTS Serum 05/11/2015 11:0 0 AM JAVA ANALYST Result [facility] Eleanor Ramon MD LAB BLOOD ORDERABLES Final Result Performing Organization Address [facility] de Phone Number HISTORICAL RESULTS * Serum ferritin (05/11/2015 11:00 AM JAVA ANALYST) Pathologist [facility] [place] Ferritin 53 22 - 322 ng/ml HISTORICAL RESULTS Serum 05/11/2015 11:0 0 AM JAVA ANALYST Result [facility] Eleanor Ramon MD LAB BLOOD ORDERABLES Final Result Performing Organization Address [facility] de Phone Number HISTORICAL RESULTS * Blood reticulocyte count (05/11/2015 10:50 AM JAVA ANALYST) Pathologist [facility] [place] Retics 1.5 0.5 - 1.5 % HISTORIC AL RESULTS Blood specimen (specimen) 05/11/2015 10:50 AM JAVA ANALYST Result [facility] Eleanor Ramon MD LAB BLOOD ORDERABLES Final Result Performing Organization Address City/[facility] Co de Phone Number HISTORICAL RESULTS * (ABNORMAL) Blood cell count [CBC] panel, 7 CAM (05/11/2015 10:50 AM JAVA ANALYST) WBC 11.3(H) 3.8 - 9.8 K/cumm HISTORICAL RESULTS RBC 5.84(H) 4.50 - 5.70 M/cumm HISTORICAL RESULTS Hgb 17.4(H) 13.8 - 17.2 g/dl HISTORICAL RESULTS Hct 52.3(H) 40.7 - 50.3 % HISTORICAL RESULTS MCV 89.6 80.0 - 97.6 fl HISTORICAL RESULTS MCH 29.8 26.7 - 33.7 pg HISTORICAL RESULTS MCHC 33.3 32.7 - 35.5 g/dl HISTORICAL RESULTS Rdw 13.7 11.8 - 14.6 % HISTORICAL RESULTS Platelets 232 140 - 440 K/cumm HISTORICAL RESULTS MPV 8.2 6.8 - 10.4 fl HISTORICAL RESULTS Neutrophils 75.2(H) 38.7 - 74.5 % HISTORICAL RESULTS Lymphocytes 13.4(L) 20.0 - 54.3 % HISTORICAL RESULTS Monos 9.1 4.3 - 13.5 % HISTORICAL RESULTS Eosinophils 1.7 0.0 - 6.0 % HISTORICAL RESULTS Basophils 0.6 0.0 - 3.0 % HISTORICAL RESULTS Neutrophils, abs 8.5(H) 1.8 - 6.6 K/cumm HISTORICAL RESULTS Lymphocytes, abs 1.5 1.2 - 3.3 K/cumm HISTORICAL RESULTS Monocytes, absolute 1.0 0.2 - 1.2 K/cumm HISTORICAL RESULTS Eosinophils, abs 0.2 0.0 - 0.5 K/cumm HISTORICAL RESULTS Basophils, abs 0.1 0.0 - 0.2 K/cumm HISTORICAL RESULTS Blood specimen (specimen) 05/11/2015 10:50 AM JAVA ANALYST Eleanor Ramon MD LAB BLOOD ORDERABLES Final Result Performing Organization Address [facility] Co de Phone Number HISTORICAL RESULTS * (ABNORMAL) Blood reticulocyte count (02/17/2015 10:43 AM CDT) Retics 1.8(H) 0.5 - 1.5 % HISTORIC AL RESULTS Blood specimen (specimen) 02/17/2015 10:43 AM CDT Eleanor Ramon MD LAB BLOOD ORDERABLES Final Result HISTORICAL RESULTS * (ABNORMAL) Blood cell count [CBC] panel, 7 CAM (02/17/2015 10:43 AM CDT) Pathologist [facility] [place] WBC 8.4 3.8 - 9.8 K/cumm HISTORICAL RESULTS RBC 5.40 4.50 - 5.70 M/cumm HISTORICAL RESULTS Hgb 16.0 13.8 - 17.2 g/dl HISTORICAL RESULTS Hct 49.0 40.7 - 50.3 % HISTORICAL RESULTS MCV 90.7 80.0 - 97.6 fl HISTORICAL RESULTS MCH 29.7 26.7 - 33.7 pg HISTORICAL RESULTS MCHC 32.7 32.7 - 35.5 g/dl HISTORICAL RESULTS Rdw 16.1(H) 11.8 - 14.6 % HISTORICAL RESULTS Platelets 218 140 - 440 K/cumm HISTORICAL RESULTS MPV 7.6 6.8 - 10.4 fl HISTORICAL RESULTS Neutrophils 67.4 38.7 - 74.5 % HISTORICAL RESULTS Lymphocytes 19.0(L) 20.0 - 54.3 % HISTORICAL RESULTS Monos 10.3 4.3 - 13.5 % HISTORICAL RESULTS Eosinophils 2.6 0.0 - 6.0 % HISTORICAL RESULTS Basophils 0.7 0.0 - 3.0 % HISTORICAL RESULTS Neutrophils, abs 5.6 1.8 - 6.6 K/cumm HISTORICAL RESULTS Lymphocytes, abs 1.6 1.2 - 3.3 K/cumm HISTORICAL RESULTS Monocytes, absolute 0.9 0.2 - 1.2 K/cumm HISTORICAL RESULTS Eosinophils, abs 0.2 0.0 - 0.5 K/cumm HISTORICAL RESULTS Basophils, abs 0.1 0.0 - 0.2 K/cumm HISTORICAL RESULTS Blood specimen (specimen) 02/17/2015 10:43 AM CDT Eleanor Ramon MD LAB BLOOD ORDERABLES Final Result HISTORICAL RESULTS * (ABNORMAL) Serum 25-hydroxycholecalciferol (vitamin D) (02/17/2015 10:42 AM CDT) Pathologist [facility] [place] 25-OH Vit D 24(L) 30 - 100 ng/ml HISTORICAL RESULTS Serum 02/17/2015 10:4 2 AM CDT Eleanor Ramon MD LAB BLOOD ORDERABLES Final Result Performing Organization Address [facility] de Phone Number HISTORICAL RESULTS * Serum iron profile (02/17/2015 10:42 AM CDT) Iron 116 45 - 160 mcg/dl HISTORICAL RESULTS UIBC 176 mcg/dl HISTORICAL RESULTS TIBC 292 220 - 420 mcg/dl HISTORICAL RESULTS Transferrin saturation 40 20 - 50 % HISTORICAL RESULTS Serum 02/17/2015 10:4 2 AM CDT Eleanor Ramon MD LAB BLOOD ORDERABLES Final Result Performing Organization Address [facility] de Phone Number HISTORICAL RESULTS * Serum ferritin (02/17/2015 10:42 AM CDT) Pathologist [facility] [place] Ferritin 213 22 - 322 ng/ml HISTORICAL RESULTS Serum 02/17/2015 10:4 2 AM CDT Eleanor Ramon MD LAB BLOOD ORDERABLES Final Result Performing Organization Address [facility] de Phone Number HISTORICAL RESULTS * (ABNORMAL) Blood reticulocyte count (12/07/2014 12:17 PM CDT) Pathologist [facility] [place] Retics 1.6(H) 0.5 - 1.5 % HISTORIC AL RESULTS Blood specimen (specimen) 12/07/2014 12:17 PM CDT Eleanor Ramon MD LAB BLOOD ORDERABLES Final Result Performing Organization Address [facility] de Phone Number HISTORICAL RESULTS * (ABNORMAL) Blood cell count [CBC] panel, 7 CAM (12/07/2014 12:17 PM CDT) WBC 8.7 3.8 - 9.8 K/cumm HISTORICAL RESULTS RBC 5.86(H) 4.50 - 5.70 M/cumm HISTORICAL RESULTS Hgb 17.5(H) 13.8 - 17.2 g/dl HISTORICAL RESULTS Hct 52.7(H) 40.7 - 50.3 % HISTORICAL RESULTS MCV 90.0 80.0 - 97.6 fl HISTORICAL RESULTS MCH 29.8 26.7 - 33.7 pg HISTORICAL RESULTS MCHC 33.2 32.7 - 35.5 g/dl HISTORICAL RESULTS Rdw 13.7 11.8 - 14.6 % HISTORICAL RESULTS Platelets 201 140 - 440 K/cumm HISTORICAL RESULTS MPV 8.0 6.8 - 10.4 fl HISTORICAL RESULTS Neutrophils 67.1 38.7 - 74.5 % HISTORICAL RESULTS Lymphocytes 19.4(L) 20.0 - 54.3 % HISTORICAL RESULTS Monos 9.8 4.3 - 13.5 % HISTORICAL RESULTS Eosinophils 2.8 0.0 - 6.0 % HISTORICAL RESULTS Basophils 0.9 0.0 - 3.0 % HISTORICAL RESULTS Neutrophils, abs 5.9 1.8 - 6.6 K/cumm HISTORICAL RESULTS Lymphocytes, abs 1.7 1.2 - 3.3 K/cumm HISTORICAL RESULTS Monocytes, absolute 0.9 0.2 - 1.2 K/cumm HISTORICAL RESULTS Eosinophils, abs 0.2 0.0 - 0.5 K/cumm HISTORICAL RESULTS Basophils, abs 0.1 0.0 - 0.2 K/cumm HISTORICAL RESULTS Blood specimen (specimen) 12/07/2014 12:17 PM CDT Eleanor Ramon MD LAB BLOOD ORDERABLES Final Result Performing Organization Address [facility] de Phone Number HISTORICAL RESULTS * Serum lactate dehydrogenase (LDH) (12/07/2014 12:16 PM CDT) Lactate dehydrogenase (LDH) 232 100 - 250 Units/L HISTORICAL RESULTS Serum 12/07/2014 12:1 6 PM CDT Eleanor Ramon MD LAB BLOOD ORDERABLES Final Result HISTORICAL RESULTS * Serum iron profile (12/07/2014 12:16 PM CDT) Iron 89 45 - 160 mcg/dl HISTORICAL RESULTS UIBC 314 mcg/dl HISTORICAL RESULTS TIBC 403 220 - 420 mcg/dl HISTORICAL RESULTS Transferrin saturation 22 20 - 50 % HISTORICAL RESULTS Serum 12/07/2014 12:1 6 PM CDT us Eleanor Ramon MD LAB BLOOD ORDERABLES Final Result HISTORICAL RESULTS * Serum ferritin (12/07/2014 12:16 PM CDT) Ferritin 22 22 - 322 ng/ml HISTORICAL RESULTS Serum 12/07/2014 12:1 6 PM CDT us Eleanor Ramon MD LAB BLOOD ORDERABLES Final Result HISTORICAL RESULTS documented in this encounter Visit Diagnoses Diagnosis Portal vein thrombosis Crohn's disease of both small and large intestine with intestinal obstruction (HCC) documented in this encounter
--- OUTSIDE RECORDS SUMMARY | 2024-05-18 22:18 | XMS_ITS | Encounter Summary ---
Author Organization [facility] Healthcare Address [address] [place] [address] Care Team Providers Care Well Reactivator Operator Name Role Phone Unavailable Primary Care Provider Unavailabl e Encounter Details Date Type Department Care Team (Late st Contact Info) Description 03/21/2012 8:07 AM CDT - 06/20/2012 11:59 PM CASING FLUID TENDER Hospital Encounter [facility] Iverson, Shad Melo MD [address] [place] [id number] Iron deficiency anemia; Regional enteritis (CMS/HCC) ([facility]) Social History Tobacco Use Types Packs/Day Years Used Date Smoking Tobacco: Never Assessed Sex and Gender Information Value Date Recorded Sex Assigned at Not on file Legal Sex Male 1:20 AM CASING FLUID TENDER Gender Identity Not on file Sexual Orientation Not on file documented as of this encounter Plan of Treatment Upcoming Encounters Date Type Department Care Team (Late st Contact Info) Description 05/22/2024 10:45 AM CASING FLUID TENDER Hospital Encounter [facility] [address] [place] [address] Nikolay Boucher MD [address] [place] [address] 05/22/2024 10:45 AM CASING FLUID TENDER - 05/22/2024 11:15 AM CASING FLUID TENDER Surgery [facility] [address] [place] [address] Nikolay Boucher MD [address] [place] [address] EGD Scheduled Procedures Name Priority Associated Diagnoses Date/Ti me ESOPHAGOGASTRODUODENOSCOPY Crohn's disease of both small and large intestine with intestinal obstruction (HCC) 05/22/2024 10:45 AM CASING FLUID TENDER documented as of this encounter Procedures Procedure Name Priority Date/Time Associated Diagnosis Comments DISCHARGE LABORATORY CUMULATIVE REPORT Routine 06/20/2012 12:00 AM CASING FLUID TENDER SERUM IRON BINDING CAPACITY Routine 05/28/2012 3:40 PM CASING FLUID TENDER SERUM FERRITIN Routine 05/28/2012 3:40 PM CASING FLUID TENDER BLOOD WBC CELL MORPHOLOGIC EXAM, AUTO Routine 05/28/2012 3:40 PM CASING FLUID TENDER BLOOD CELL COUNT (CBC) Routine 05/28/2012 3:40 PM CASING FLUID TENDER documented in this encounter Results * Discharge Laboratory Cumulative Report (06/20/2012 12:00 AM CASING FLUID TENDER) 06/20/2012 Narrative HISTORICAL RESULTS - 08/21/2012 12:25 AM CDT Patient No: [id number] ? [facility] Patient Name: MELLO HERBERT ?[facility] Age: 47 YRS ?: 1965 ?Sex:M ?[address] )[phone] ?? Adm Dt: 03/21/2012 ?[place], [place] ??[address] Created: 08/21/2012 ??0025 ?? Pt. Type: D ? Discharge Dt: 06/20/2012 ? Pathologists: Annel Kelly MD Admit Attend Dr: SHAD IVERSON MD ? BLOOD CELL COUNTS ?Collection Date: ?05/28/12 ?Collection Time: ?1540 ? Ref Range: ?? Units: [4.00-10.50] /CMM ? WBC X 10^3 ?8.67 [4.60-6.20] ??/CMM ? RBC X 10^6 ?5.26 [14.0-18.0] ??G/DL ? HGB ? 13.8 L [40.0-54.0] ??% ?HCT ? 43.2 [77.0-97.0] ??FL ? MCV ? 82.1 [23.0-34.0] ??PG ? MCH ? 26.2 [32.0-36.0] ??% ?MCHC ?31.9 L [11.5-14.5] ??% ?RDW ? 17.8 H [150-451] ?? /CMM ? PLT X 10^3 ? 257 ?BLOOD CELL DIFFERENTIAL ?Collection Date: ?05/28/12 ?Collection Time: ?1540 ? Ref Range: ?? Units: [54.0-69.0] ??% ?NEUTROPHILS ? 54.6 [25.0-33.0] ??% ?LYMPHOCYTES ? 27.9 [1.0-13.0] ??% ?MONOCYTES ? 13.7 H [0.0-10.0] ??% ?EOSINOPHILS ?2.5 [0.0-1.0] ?? % ?BASOPHILS ?1.2 H ? /CMM ? A LYMPHOCYTE ? 2.4 ? % ?IMM GRAN % ? 0.1 ? /CMM ? A IMM GRAN ? 0.1 ? /CMM ? A MONOCYTE ? 1.2 ? /CMM ? A NEUTROPHIL ? 4.7 ? /CMM ? A EOSINOPHIL ? 0.2 ? /CMM ? A BASOPHIL ? 0.1 Footnotes and Symbols: L = Low, H = High ?? CONTINUED ?Page: ?? 1 Patient No: [id number] ? [facility] Patient Name: MELLO HERBERT ?[facility] Age: 47 YRS ?: 1965 ?Sex:M ?[address] )[id number] ?? Adm Dt: 03/21/2012 ?[place] ??[id number] Created: 08/21/2012 ??0025 ?? Pt. Type: D ? Discharge Dt: 06/20/2012 ? Pathologists: Annel Kelly MD Admit Attend Dr: SHAD IVERSON MD ? GENERAL CHEMISTRY ?Collection Date: ?05/28/12 ?Collection Time: ?1540 ? Ref Range: ?? Units: ??[10-244] ?? NG/ML ?FERRITIN ?27 ??[24-152] ?? UG/DL ?IRON ?37 [199-474] ?? UG/DL ?TIBC ? 372 ?? [5-45] ?% ?% SATURATION ?10 ?? END OF CHART ? Page: ?? 2 Historical Provider MD LAB BLOOD ORDERABLES Ibeth l Result Performing Organization Address [facility] de Phone Number HISTORICAL RESULTS * Serum iron binding capacity (05/28/2012 3:40 PM CASING FLUID TENDER) Iron 37 24 - 152 mcg/dl HISTORICAL RESULTS TIBC 372 199 - 474 mcg/dl HISTORICAL RESULTS Iron saturation 10 5 - 45 % HIST ORICAL RESULTS Serum 05/28/2012 3:40 PM CASING FLUID TENDER Shad Iverson MD LAB BLOOD ORDERABLES Fin al Result Performing Organization Address [facility] Phone Number HISTORICAL RESULTS * Serum ferritin (05/28/2012 3:40 PM CASING FLUID TENDER) Ferritin 27 10 - 244 ng/ml HISTORICAL RESULTS Serum 05/28/2012 3:40 PM CASING FLUID TENDER Shad Iverson MD LAB BLOOD ORDERABLES Fin al Result Performing Organization Address [facility] de Phone Number HISTORICAL RESULTS * (ABNORMAL) Blood cell count (CBC) (05/28/2012 3:40 PM CASING FLUID TENDER) WBC 8.7 4.0 - 10.5 K/cumm HISTORICAL RESULTS RBC 5.26 4.60 - 6.20 M/cumm HISTORICAL RESULTS Hgb 13.8(L) 14.0 - 18.0 g/dl HISTORICAL RESULTS Hct 43.2 40.0 - 54.0 % HISTORICAL RESULTS MCV 82.1 77.0 - 97.0 fl HISTORICAL RESULTS MCH 26.2 23.0 - 34.0 pg HISTORICAL RESULTS MCHC 31.9(L) 32.0 - 36.0 g/dl HISTORICAL RESULTS Rdw 17.8(H) 11.5 - 14.5 % HISTORICAL RESULTS Platelets 257 150 - 451 K/cumm HISTORICAL RESULTS MPV 9.2 7.4 - 10.4 fl HISTORICAL RESULTS Blood specimen (specimen) 05/28/2012 3:40 PM CASING FLUID TENDER Shad Iverson MD LAB BLOOD ORDERABLES Fin al Result Performing Organization Address [facility] de Phone Number HISTORICAL RESULTS * (ABNORMAL) Blood WBC cell morphologic exam, auto (05/28/2012 3:40 PM CASING FLUID TENDER) Pathologist [facility] Lymphocytes 27.9 25.0 - 33.0 % HISTORICAL RESULTS Monos 13.7(H) 1.0 - 13.0 % HISTORICAL RESULTS Neutrophils 54.6 54.0 - 69.0 % HISTORICAL RESULTS Eosinophils 2.5 0.0 - 10.0 % HISTORICAL RESULTS Basophils 1.2(H) 0.0 - 1.0 % HISTORICAL RESULTS Young granulocytes, % 0.1 % HISTORICAL RESULTS Lymphocytes, abs 2.4 K/cumm HIS TORICAL RESULTS Monocytes, absolute 1.2 K/cumm HISTORICAL RESULTS Neutrophils, abs 4.7 K/cumm HIS TORICAL RESULTS Eosinophils, abs 0.2 cells/cumm HI STORICAL RESULTS Basophils, abs 0.1 K/cumm HISTO RICAL RESULTS Young granulocyte 0 K/cumm HISTORICAL RESULTS Blood specimen (specimen) 05/28/2012 3:40 PM CASING FLUID TENDER Shad Iverson MD LAB BLOOD ORDERABLES Fin al Result Performing Organization Address [facility] de Phone Number HISTORICAL RESULTS documented in this encounter Visit Diagnoses Diagnosis Iron deficiency anemia Unspecified iron deficiency anemia Regional enteritis (CMS/HCC) (HCC) Regional enteritis of unspecified site Crohn's disease of both small and large intestine with intestinal obstruction (HCC) documented in this encounter
--- OUTSIDE RECORDS SUMMARY | 2024-05-18 22:18 | XMS_ITS | Encounter Summary ---
Author Organization [facility] Facility Care Team Providers Care Quill Layer Name Role Phone Unavailable Primary Care Provider Unavailabl e Encounter Details Date Type Department Care Team (Late st Contact Info) Description 10/27/2012 - 05/26/2013 11:59 PM HEALTH ASSESSMENT AND TREATMENT TEACHER Hospital Encounter [facility] EILEEN Valenzuela, Roxanna Morocho MD [address] [place] [address] Regional enteritis (CMS/HCC) (HCC) Social History Tobacco Use Types Packs/Day Years Used Date Smoking Tobacco: Never Assessed Sex and Gender Information Value Date Recorded Sex Assigned at Not on file Legal Sex Male 1:20 AM HEALTH ASSESSMENT AND TREATMENT TEACHER Gender Identity Not on file Sexual Orientation Not on file documented as of this encounter Plan of Treatment Upcoming Encounters Date Type Department Care Team (Late Contact Info) Description 05/22/2024 10:45 AM HEALTH ASSESSMENT AND TREATMENT TEACHER Hospital Encounter [facility] [address] [place] [address] Nikolay Boucher MD [address] [place] [address] 05/22/2024 10:45 AM HEALTH ASSESSMENT AND TREATMENT TEACHER - 05/22/2024 11:15 AM HEALTH ASSESSMENT AND TREATMENT TEACHER Surgery [facility] [address] [address] [address] Nikolay Boucher MD [address] [place] [address] EGD Scheduled Procedures Name Priority Associated Diagnoses Date/Ti me ESOPHAGOGASTRODUODENOSCOPY Crohn's disease of both small and large intestine with intestinal obstruction (HCC) 05/22/2024 10:45 AM HEALTH ASSESSMENT AND TREATMENT TEACHER documented as of this encounter Procedures Procedure Name Priority Date/Time Associated Diagnosis Comments DISCHARGE LABORATORY CUMULATIVE REPORT Routine 01/27/2013 5:08 PM CDT PLASMA HEPATIC FUNCTION PANEL Routine 01/27/2013 3:55 PM CDT BLOOD CELL COUNT (CBC) Routine 01/27/2013 3:55 PM CDT PLASMA HEPATIC FUNCTION PANEL Routine 10/27/2012 3:10 PM CDT BLOOD CELL COUNT (CBC) Routine 10/27/2012 3:10 PM CDT documented in this encounter Results * Discharge Laboratory Cumulative Report (01/27/2013 5:08 PM CDT) 01/27/2013 5:08 PM CDT Narrative HISTORICAL RESULTS - 01/27/2013 5:08 PM CDT ? [facility] ? Department of Laboratories ?[facility] [address] ?[facility] ?Outpatient ?Physician Patient Name: ? MELLO HERBERT Med Rec Number: ?? [id number] Date of : ?1965 Gender/Age: ? Male 47 years Doctor: ? <Unknown> Report Date/Time: 01/27/2013 17:08 ?* Abnormal ??C Critical ??f Footnote ??^ Corrected ??L Low ??H High ?i Interp Data ??@ Reference Lab ?Chart Type: Cumulative ? CHEMISTRY ? Standard Blood Chemistry ?01/27/2013 ??10/27/2012 ?15:55:41 ?15:10:00 Test ?Units ?Reference Total Bilirubin ? 0.6 ? 0.8 ? mg/dL ?0.3-1.1 Bilirubin, Direct ? 0.2 ? 0.2 ? mg/dL ?0.0-0.3 Plasma Total Protein ??6.9 ? 7.5 ? g/dL ? 6.5-8.5 Albumin ? 4.3 ? 4.4 ? g/dL ? 3.6-5.0 Alkaline Phosphatase ??74 ?106 ? Units/L ??38-126 ALT ? 29 ?43 ?Units/L ??7-53 AST ? 29 ?37 ?Units/L ??11-47 ?HEMATOLOGY ?Standard Hematology ?01/27/2013 ??10/27/2012 ?15:55:41 ?15:10:00 Test ?Units ?? Reference WBC ? 8.0 ? 8.4 ? K/cumm ??3.8-9.8 RBC ? 5.00 ?5.31 ?M/cumm ??4.50-5.70 Hgb ? 15.1 ?15.9 ?g/dL ?13.8-17.2 Hct ? 44.8 ?47.6 ?% ? 40.7-50.[address] ? 232 ? 261 ? K/cumm ??140-440 MCV ? 89.7 ?89.6 ?fL ?80.0-97.6 MCH ? 30.3 ?29.9 ?pg ?26.7-33.7 MCHC ?33.8 ?33.4 ?g/dL ?32.7-35.5 RDW ? 14.5 ?14.0 ?% ? 11.8-14.6 MPV ? 7.3 ? 7.6 ? fL ?6.8-10.4 Neut Pct Auto ?? 62.6 ?59.8 ?% ? 38.7-74.5 Lymph Pct Auto ??24.7 ?25.0 ?% ? 20.0-54.3 [place] Pct Auto ?? 9.3 ? 9.9 ? % ? 4.3-13.5 Eos Pct Auto ?3.0 ? 4.8 ? % ? 0.0-6.0 Baso Pct Auto ?? 0.4 ? 0.5 ? % ? 0.0-3.0 Neut Abs Auto ?? 5.0 ? 5.0 ? K/cumm ??1.8-6.6 Lymph Abs Auto ??2.0 ? 2.1 ? K/cumm ??1.2-3.3 [place] Abs Auto ?? 0.7 ? 0.8 ? K/cumm ??0.2-1.2 Eos Abs Auto ?0.2 ? 0.4 ? K/cumm ??0.0-0.5 Baso Abs Auto ?? 0.0 ? 0.0 ? K/cumm ??0.0-0.2 Historical Provider LAB BLOOD ORDERABLES Ibeth l Result Performing Organization Address [facility] de Phone Number HISTORICAL RESULTS * Plasma hepatic function panel (01/27/2013 3:55 PM CDT) [facility] Protein, pl 6.9 6.5 - 8.5 g/dl HISTORICAL RESULTS Alb 4.3 3.6 - 5.0 g/dl HISTORICAL RESULTS Bilirubin 0.6 0.3 - 1.1 mg/dl HISTORICAL RESULTS Bilirubin, direct 0.2 0.0 - 0.3 mg/dl HISTORICAL RESULTS Alk phos 74 38 - 126 Units/L HISTORICAL RESULTS AST 29 11 - 47 Units/L HISTORICAL RESULTS ALT 29 7 - 53 Units/L HISTORICAL RESULTS Plasma 01/27/2013 3:55 PM CDT Roxanna Valenzuela MD LAB BLOOD ORDERABLE S Final Result Performing Organization Address [facility] Co de Phone Number HISTORICAL RESULTS * Blood cell count (CBC) (01/27/2013 3:55 PM CDT) [facility] WBC 8.0 3.8 - 9.8 K/cumm HISTORICAL RESULTS RBC 5.00 4.50 - 5.70 M/cumm HISTORICAL RESULTS Hgb 15.1 13.8 - 17.2 g/dl HISTORICAL RESULTS Hct 44.8 40.7 - 50.3 % HISTORICAL RESULTS MCV 89.7 80.0 - 97.6 fl HISTORICAL RESULTS MCH 30.3 26.7 - 33.7 pg HISTORICAL RESULTS MCHC 33.8 32.7 - 35.5 g/dl HISTORICAL RESULTS Rdw 14.5 11.8 - 14.6 % HISTORICAL RESULTS Platelets 232 140 - 440 K/cumm HISTORICAL RESULTS MPV 7.3 6.8 - 10.4 fl HISTORICAL RESULTS Neutrophils 62.6 38.7 - 74.5 % HISTORICAL RESULTS Lymphocytes 24.7 20.0 - 54.3 % HISTORICAL RESULTS Monos 9.3 4.3 - 13.5 % HISTORICAL RESULTS Eosinophils 3.0 0.0 - 6.0 % HISTORICAL RESULTS Basophils 0.4 0.0 - 3.0 % HISTORICAL RESULTS Neutrophils, abs 5.0 1.8 - 6.6 K/cumm HISTORICAL RESULTS Lymphocytes, abs 2.0 1.2 - 3.3 K/cumm HISTORICAL RESULTS Monocytes, absolute 0.7 0.2 - 1.2 K/cumm HISTORICAL RESULTS Eosinophils, abs 0.2 0.0 - 0.5 K/cumm HISTORICAL RESULTS Basophils, abs 0.0 0.0 - 0.2 K/cumm HISTORICAL RESULTS Blood specimen (specimen) 01/27/2013 3:55 PM CDT us Roxanna Valenzuela MD LAB BLOOD ORDERABLE S Final Result HISTORICAL RESULTS * Plasma hepatic function panel (10/27/2012 3:10 PM CDT) [facility] Protein, pl 7.5 6.5 - 8.5 g/dl HISTORICAL RESULTS Alb 4.4 3.6 - 5.0 g/dl HISTORICAL RESULTS Bilirubin 0.8 0.3 - 1.1 mg/dl HISTORICAL RESULTS Bilirubin, direct 0.2 0.0 - 0.3 mg/dl HISTORICAL RESULTS Alk phos 106 38 - 126 Units/L HISTORICAL RESULTS AST 37 11 - 47 Units/L HISTORICAL RESULTS ALT 43 7 - 53 Units/L HISTORICAL RESULTS Plasma 10/27/2012 3:10 PM CDT Roxanna Valenzuela MD LAB BLOOD ORDERABLE S Final Result HISTORICAL RESULTS * Blood cell count (CBC) (10/27/2012 3:10 PM CDT) WBC 8.4 3.8 - 9.8 K/cumm HISTORICAL RESULTS RBC 5.31 4.50 - 5.70 M/cumm HISTORICAL RESULTS Hgb 15.9 13.8 - 17.2 g/dl HISTORICAL RESULTS Hct 47.6 40.7 - 50.3 % HISTORICAL RESULTS MCV 89.6 80.0 - 97.6 fl HISTORICAL RESULTS MCH 29.9 26.7 - 33.7 pg HISTORICAL RESULTS MCHC 33.4 32.7 - 35.5 g/dl HISTORICAL RESULTS Rdw 14.0 11.8 - 14.6 % HISTORICAL RESULTS Platelets 261 140 - 440 K/cumm HISTORICAL RESULTS MPV 7.6 6.8 - 10.4 fl HISTORICAL RESULTS Neutrophils 59.8 38.7 - 74.5 % HISTORICAL RESULTS Lymphocytes 25.0 20.0 - 54.3 % HISTORICAL RESULTS Monos 9.9 4.3 - 13.5 % HISTORICAL RESULTS Eosinophils 4.8 0.0 - 6.0 % HISTORICAL RESULTS Basophils 0.5 0.0 - 3.0 % HISTORICAL RESULTS Neutrophils, abs 5.0 1.8 - 6.6 K/cumm HISTORICAL RESULTS Lymphocytes, abs 2.1 1.2 - 3.3 K/cumm HISTORICAL RESULTS Monocytes, absolute 0.8 0.2 - 1.2 K/cumm HISTORICAL RESULTS Eosinophils, abs 0.4 0.0 - 0.5 K/cumm HISTORICAL RESULTS Basophils, abs 0.0 0.0 - 0.2 K/cumm HISTORICAL RESULTS Blood specimen (specimen) 10/27/2012 3:10 PM CDT Roxanna Valenzuela MD LAB BLOOD ORDERABLE S Final Result HISTORICAL RESULTS documented in this encounter Visit Diagnoses Diagnosis Regional enteritis (CMS/HCC) (HCC) Regional enteritis of unspecified site Crohn's disease of both small and large intestine with intestinal obstruction (HCC) documented in this encounter
--- OUTSIDE RECORDS SUMMARY | 2024-05-18 22:18 | XMS_ITS | Encounter Summary ---
Author Organization [facility] Facility Care Team Providers Care Date Night Caregiver Name Role Phone Unavailable Primary Care Provider Unavailabl e Encounter Details Date Type Department Care Team (Late st Contact Info) Description 09/21/2014 - 09/21/2014 11:59 PM CDT Hospital Encounter [facility] EILEEN Valenzuela, Roxanna Morocho MD [address] [place] [address] Regional enteritis (CMS/HCC) (HCC) Social History Tobacco Use Types Packs/Day Years Used Date Smoking Tobacco: Never Assessed Sex and Gender Information Value Date Recorded Sex Assigned at Not on file Legal Sex Male 1:20 AM BRACELET FORMER Gender Identity Not on file Sexual Orientation Not on file documented as of this encounter Plan of Treatment Upcoming Encounters Date Type Department Care Team (Late Contact Info) Description 05/22/2024 10:45 AM BRACELET FORMER Hospital Encounter [facility] Endoscopy [address] [place] [address] Nikolay Boucher MD [address] [place] [address] 05/22/2024 10:45 AM BRACELET FORMER - 05/22/2024 11:15 AM BRACELET FORMER Surgery [facility] Endoscopy [address] [address] [address] Nikolay Boucher MD [address] [place] [address] EGD Scheduled Procedures Name Priority Associated Diagnoses Date/Ti me ESOPHAGOGASTRODUODENOSCOPY Crohn's disease of both small and large intestine with intestinal obstruction (HCC) 05/22/2024 10:45 AM BRACELET FORMER documented as of this encounter Procedures Procedure Name Priority Date/Time Associated Diagnosis Comments DISCHARGE LABORATORY CUMULATIVE REPORT Routine 09/21/2014 5:07 PM CDT PLASMA HEPATIC FUNCTION PANEL Routine 09/21/2014 12:22 PM CDT BLOOD CELL COUNT (CBC) Routine 09/21/2014 12:22 PM CDT documented in this encounter Results * Discharge Laboratory Cumulative Report (09/21/2014 5:07 PM CDT) 09/21/2014 5:07 PM CDT Narrative HISTORICAL RESULTS - 09/21/2014 5:07 PM CDT ? [facility] ? Department of Laboratories ? [facility] ? [place] ?[facility] [address] ?[facility] ?Outpatient ?Physician ? Patient Name: ? WHETSEL, MELLO L Med Rec Number: ?? [id number] Date of : ?1965 Gender/Age: ? Male 49 years Doctor: ? Roxanna Valenzuela M.D. Report Date/Time: 09/21/2014 17:07 ?* Abnormal ??C Critical ??f Footnote ??^ Corrected ??L Low ??H High ?i Interp Data ??@ Reference Lab ?Chart Type: Cumulative ? CHEMISTRY ? Standard Blood Chemistry ?09/21/2014 ?12:22:00 Test ?Units ?Reference Total Bilirubin ? 0.7 ? mg/dL ?0.3-1.1 Bilirubin, Direct ? 0.2 ? mg/dL ?0.0-0.3 Plasma Total Protein ??7.2 ? g/dL ? 6.5-8.5 Albumin ? 4.2 ? g/dL ? 3.6-5.0 Alkaline Phosphatase ??54 ?Units/L ??38-126 ALT ? 26 ?Units/L ??7-53 AST ? 30 ?Units/L ??11-47 ?HEMATOLOGY ?Standard Hematology ?09/21/2014 ?12:22:00 Test ?Units ?? Reference WBC ? 7.1 ? K/cumm ??3.8-9.8 RBC ? 5.40 ?M/cumm ??4.50-5.70 Hgb ? 16.0 ?g/dL ?13.8-17.2 Hct ? 49.2 ?% ? 40.7-50.[address] ? 175 ? K/cumm ??140-440 MCV ? 91.1 ?fL ?80.0-97.6 MCH ? 29.7 ?pg ?26.7-33.7 MCHC ?32.6 ??L ? g/dL ?32.7-35.5 RDW ? 17.7 ??H ? % ? 11.8-14.6 MPV ? 8.0 ? fL ?6.8-10.4 Neut Pct Auto ?? 72.6 ?% ? 38.7-74.5 Lymph Pct Auto ??17.3 ??L ? % ? 20.0-54.3 Sharp Pct Auto ?? 8.1 ? % ? 4.3-13.5 Eos Pct Auto ?1.5 ? % ? 0.0-6.0 Baso Pct Auto ?? 0.5 ? % ? 0.0-3.0 Neut Abs Auto ?? 5.2 ? K/cumm ??1.8-6.6 Lymph Abs Auto ??1.2 ? K/cumm ??1.2-3.3 [place] Abs Auto ?? 0.6 ? K/cumm ??0.2-1.2 Eos Abs Auto ?0.1 ? K/cumm ??0.0-0.5 Baso Abs Auto ?? 0.0 ? K/cumm ??0.0-0.2 us Historical Provider MD LAB BLOOD ORDERABLES Ibeth l Result HISTORICAL RESULTS * Plasma hepatic function panel (09/21/2014 12:22 PM CDT) Protein, pl 7.2 6.5 - 8.5 g/dl HISTORICAL RESULTS Alb 4.2 3.6 - 5.0 g/dl HISTORICAL RESULTS Bilirubin 0.7 0.3 - 1.1 mg/dl HISTORICAL RESULTS Bilirubin, direct 0.2 0.0 - 0.3 mg/dl HISTORICAL RESULTS Alk phos 54 38 - 126 Units/L HISTORICAL RESULTS AST 30 11 - 47 Units/L HISTORICAL RESULTS ALT 26 7 - 53 Units/L HISTORICAL RESULTS Plasma 09/21/2014 12:2 2 PM CDT us Roxanna Valenzuela MD LAB BLOOD ORDERABLE S Final Result HISTORICAL RESULTS * (ABNORMAL) Blood cell count (CBC) (09/21/2014 12:22 PM CDT) WBC 7.1 3.8 - 9.8 K/cumm HISTORICAL RESULTS RBC 5.40 4.50 - 5.70 M/cumm HISTORICAL RESULTS Hgb 16.0 13.8 - 17.2 g/dl HISTORICAL RESULTS Hct 49.2 40.7 - 50.3 % HISTORICAL RESULTS MCV 91.1 80.0 - 97.6 fl HISTORICAL RESULTS MCH 29.7 26.7 - 33.7 pg HISTORICAL RESULTS MCHC 32.6(L) 32.7 - 35.5 g/dl HISTORICAL RESULTS Rdw 17.7(H) 11.8 - 14.6 % HISTORICAL RESULTS Platelets 175 140 - 440 K/cumm HISTORICAL RESULTS MPV 8.0 6.8 - 10.4 fl HISTORICAL RESULTS Neutrophils, abs 5.2 1.8 - 6.6 K/cumm HISTORICAL RESULTS Lymphocytes, abs 1.2 1.2 - 3.3 K/cumm HISTORICAL RESULTS Monocytes, absolute 0.6 0.2 - 1.2 K/cumm HISTORICAL RESULTS Eosinophils, abs 0.1 0.0 - 0.5 K/cumm HISTORICAL RESULTS Basophils, abs 0.0 0.0 - 0.2 K/cumm HISTORICAL RESULTS Neutrophils 72.6 38.7 - 74.5 % HISTORICAL RESULTS Lymphocytes 17.3(L) 20.0 - 54.3 % HISTORICAL RESULTS Monos 8.1 4.3 - 13.5 % HISTORICAL RESULTS Eosinophils 1.5 0.0 - 6.0 % HISTORICAL RESULTS Basophils 0.5 0.0 - 3.0 % HISTORICAL RESULTS Blood specimen (specimen) 09/21/2014 12:22 PM CDT us Roxanna Valenzuela MD LAB BLOOD ORDERABLE S Final Result HISTORICAL RESULTS documented in this encounter Visit Diagnoses Diagnosis Regional enteritis (CMS/HCC) (HCC) Regional enteritis of unspecified site Crohn's disease of both small and large intestine with intestinal obstruction (HCC) documented in this encounter
--- OUTSIDE RECORDS SUMMARY | 2024-05-18 22:18 | XMS_ITS | Encounter Summary ---
Author Organization [facility] Facility Care Team Providers Care Porter Baggage Name Role Phone Unavailable Primary Care Provider Unavailabl e Encounter Details Date Type Department Care Team (Late st Contact Info) Description 02/02/2016 2:15 PM CDT - 02/02/2016 11:59 PM CDT Hospital Encounter [facility] Eleanor Bautista MD [address] [place] [address] Social History Tobacco Use Types Packs/Day Years Used Date Smoking Tobacco: Never Assessed Sex and Gender Information Value Date Recorded Sex Assigned at Not on file Legal Sex Male 1:20 AM KIER PLEATER Gender Identity Not on file Sexual Orientation Not on file documented as of this encounter Plan of Treatment Upcoming Encounters Date Type Department Care Team (Late st Contact Info) Description 05/22/2024 10:45 AM KIER PLEATER Hospital Encounter [facility] Endoscopy [address] [place] [address] Nikolay Boucher MD [address] [place] [address] 05/22/2024 10:45 AM KIER PLEATER - 05/22/2024 11:15 AM KIER PLEATER Surgery [facility] Endoscopy [address] [place] [address] Nikolay Boucher MD [address] [place] [address] EGD Scheduled Procedures Name Priority Associated Diagnoses Date/Ti nd ESOPHAGOGASTRODUODENOSCOPY Crohn's disease of both small and large intestine with intestinal obstruction (HCC) 05/22/2024 10:45 AM KIER PLEATER documented as of this encounter Visit Diagnoses Not on filedocumented in this encounter
--- OUTSIDE RECORDS SUMMARY | 2024-05-18 22:18 | XMS_ITS | Encounter Summary ---
Author Organization [facility] Facility Care Team Providers Care Home Office Claims Examiner Name Role Phone Unavailable Primary Care Provider Unavailabl e Encounter Details Date Type Department Care Team (Late st Contact Info) Description 08/03/2015 - 08/03/2015 11:59 PM TIPPLE MECHANIC Hospital Encounter [facility] EILEEN Valenzuela, Roxanna Morocho MD [address] [place] [address] Iron deficiency anemia due to chronic blood loss Social History Tobacco Use Types Packs/Day Years Used Date Smoking Tobacco: Never Assessed Sex and Gender Information Value Date Recorded Sex Assigned at Not on file Legal Sex Male 1:20 AM TIPPLE MECHANIC Gender Identity Not on file Sexual Orientation Not on file documented as of this encounter Plan of Treatment Upcoming Encounters Date Type Department Care Team (Late st Contact Info) Description 05/22/2024 10:45 AM TIPPLE MECHANIC Hospital Encounter [facility] Endoscopy [address] [place] [address] Nikolay Boucher MD [address] [place] [address] 05/22/2024 10:45 AM TIPPLE MECHANIC - 05/22/2024 11:15 AM TIPPLE MECHANIC Surgery [facility] Endoscopy [address] [place] [address] Nkiolay Boucher MD [address] [place] [address] EGD Scheduled Procedures Name Priority Associated Diagnoses Date/Ti me ESOPHAGOGASTRODUODENOSCOPY Crohn's disease of both small and large intestine with intestinal obstruction (HCC) 05/22/2024 10:45 AM TIPPLE MECHANIC documented as of this encounter Procedures Procedure Name Priority Date/Time Associated Diagnosis Comments PLASMA HEPATIC FUNCTION PANEL Routine 08/03/2015 12:18 PM TIPPLE MECHANIC BLOOD INTERFERON GAMMA RELEASE ASSAY Routine 08/03/2015 12:18 PM TIPPLE MECHANIC REFERENCE LABORATORY MISCELLANEOUS TESTING 08/03/2015 DISCHARGE LABORATORY CUMULATIVE REPORT 08/03/2015 documented in this encounter Results * Plasma hepatic function panel (08/03/2015 12:18 PM TIPPLE MECHANIC) Pathologist [facility] Protein, pl 7.1 6.5 - 8.5 g/dl HISTORICAL RESULTS Alb 4.3 3.6 - 5.0 g/dl HISTORICAL RESULTS Bilirubin 0.7 0.3 - 1.1 mg/dl HISTORICAL RESULTS Bilirubin, direct 0.2 0.0 - 0.3 mg/dl HISTORICAL RESULTS Alk phos 81 38 - 126 Units/L HISTORICAL RESULTS AST 28 11 - 47 Units/L HISTORICAL RESULTS ALT 35 7 - 53 Units/L HISTORICAL RESULTS Plasma 08/03/2015 12:1 8 PM TIPPLE MECHANIC us Roxanna Valenzuela MD LAB BLOOD ORDERABLE S Final Result HISTORICAL RESULTS * Blood interferon gamma release assay (08/03/2015 12:18 PM TIPPLE MECHANIC) Pathologist [facility] Interferon gamma release Negative HISTORICAL RESULTS Comment: See separate report scanned into the Clinical Desktop Scanned Laboratory Reports Tab. Interpretive Data Testing performed by [facility], [id number] [place], [place] [id number] Current Interpretive Data was last revised 2014 Blood specimen (specimen) 08/03/2015 12:18 PM TIPPLE MECHANIC Roxanna Valenzuela MD LAB BLOOD ORDERABLE S Final Result HISTORICAL RESULTS * DISCHARGE LABORATORY CUMULATIVE REPORT (08/03/2015) Narrative 08/03/2015 Ordered by an unspecified provider. Historical Provider LAB BLOOD ORDERABLES Ibeth l Result * REFERENCE LABORATORY MISCELLANEOUS TESTING (08/03/2015) Narrative 08/03/2015 Ordered by an unspecified provider. Historical Provider LAB BLOOD ORDERABLES Ibeth l Result documented in this encounter Visit Diagnoses Diagnosis Iron deficiency anemia due to chronic blood loss Iron deficiency anemia secondary to blood loss (chronic) Crohn's disease of both small and large intestine with intestinal obstruction (HCC) documented in this encounter
--- OUTSIDE RECORDS SUMMARY | 2024-05-18 22:18 | XMS_ITS | Encounter Summary ---
Author Organization [facility] Healthcare Address [address] [place] [address] Care Team Providers Care Military Technology Manager Name Role Phone Unavailable Primary Care Provider Unavailabl e Encounter Details Date Type Department Care Team (Late st Contact Info) Description 09/22/2014 3:13 PM CDT - 09/30/2014 11:59 PM CDT Hospital Encounter [facility], Shad Melo MD [address] [place] [id number] Iron deficiency anemia Social History Tobacco Use Types Packs/Day Years Used Date Smoking Tobacco: Never Assessed Sex and Gender Information Value Date Recorded Sex Assigned at Not on file 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 Gender Identity Not on file Sexual Orientation Not on file documented as of this encounter Plan of Treatment Upcoming Encounters Date Type Department Care Team (Late st Contact Info) Description 05/22/2024 10:45 AM MOTORCYCLE POLICE OFFICER Hospital Encounter [facility] [address] [place] [address] Nikolay Boucher MD [facility] [address] [facility] [address] [place] [address] 05/22/2024 10:45 AM MOTORCYCLE POLICE OFFICER - 05/22/2024 11:15 AM MOTORCYCLE POLICE OFFICER Surgery [facility] [address] [place] [address] Nikolay Boucher MD [address] [place] [address] EGD Scheduled Procedures Name Priority Associated Diagnoses Date/Ti me ESOPHAGOGASTRODUODENOSCOPY Crohn's disease of both small and large intestine with intestinal obstruction (HCC) 05/22/2024 10:45 AM MOTORCYCLE POLICE OFFICER documented as of this encounter Procedures Procedure Name Priority Date/Time Associated Diagnosis Comments DISCHARGE LABORATORY CUMULATIVE REPORT Routine 09/30/2014 12:00 AM CDT SERUM IRON BINDING CAPACITY Routine 09/22/2014 3:30 PM CDT SERUM FERRITIN Routine 09/22/2014 3:30 PM CDT SERUM COMPREHENSIVE METABOLIC PANEL Routine 09/22/2014 3:30 PM CDT BLOOD WBC CELL MORPHOLOGIC EXAM, AUTO Routine 09/22/2014 3:30 PM CDT BLOOD CELL COUNT (CBC) Routine 5 3:30 PM CDT documented in this encounter Results * Discharge Laboratory Cumulative Report (09/30/2014 12:00 AM CDT) 09/30/2014 Narrative HISTORICAL RESULTS - 12/01/2014 12:32 AM CDT Patient No: [id number] ? [facility] Patient Name: MELLO HERBERT ?[facility] Age: 49 YRS ?: 1965 ?Sex:M ?[address] ?? Adm Dt: 09/22/2014 ?[place] ??[address] Created: 12/01/2014 ??0032 ?? Pt. Type: D ? Discharge Dt: 09/30/2014 ? Pathologists: Annel Kelly MD Admit Attend Dr: SHAD IVERSON MD ? BLOOD CELL COUNTS ?Collection Date: ?09/22/14 ?Collection Time: ?1530 ? Ref Range: ?? Units: [4.00-10.50] /CMM ? WBC X 10^3 ?8.02 [4.60-6.20] ??/CMM ? RBC X 10^6 ?5.84 [14.0-18.0] ??G/DL ? HGB ? 17.5 [40.0-54.0] ??% ?HCT ? 50.0 [77.0-97.0] ??FL ? MCV ? 85.6 [23.0-34.0] ??PG ? MCH ? 30.0 [32.0-36.0] ??% ?MCHC ?35.0 [11.5-14.5] ??% ?RDW ? 15.6 H [150-400] ?? /CMM ? PLT X 10^3 ? 216 ?BLOOD CELL DIFFERENTIAL ?Collection Date: ?09/22/15 ?Collection Time: ?1530 ? Ref Range: ?? Units: [54.0-69.0] ??% ?NEUTROPHILS ? 61.1 [25.0-33.0] ??% ?LYMPHOCYTES ? 25.8 [0.0-13.0] ??% ?MONOCYTES ? 10.2 [0.0-10.0] ??% ?EOSINOPHILS ?2.2 [0.0-1.0] ?? % ?BASOPHILS ?0.5 ? /CMM ? A LYMPHOCYTE ? 2.1 [0.0-1.0] ?? % ?IMM GRAN % ? 0.2 [0.00-0.02] ??/CMM ? A IMM GRAN ?0.02 [1.1-1.9] ?? /CMM ? A MONOCYTE ? 0.8 L [1.4-6.5] ?? /CMM ? A NEUTROPHIL ? 4.9 [0.0-0.7] ?? /CMM ? A EOSINOPHIL ? 0.2 [0.0-0.2] ?? /CMM ? A BASOPHIL ? 0.0 Footnotes and Symbols: L = Low, H = High ?? CONTINUED ?Page: ?? 1 Patient No: [id number] ? [facility] Patient Name: MELLO HERBERT ?[facility] Age: 49 YRS ?: 1965 ?Sex:M ?[address] )[id number] ?? Adm Dt: 09/22/2014 ?[place] ??[address] Created: 12/01/2014 ??0032 ?? Pt. Type: D ? Discharge Dt: 09/30/2014 ? Pathologists: Annel Kelly MD Admit Attend Dr: SHAD IVERSON MD ? GENERAL CHEMISTRY ?Collection Date: ?09/22/14 ?Collection Time: ?1530 ? Ref Range: ?? Units: [135-145] ?? MMOL/L ? SODIUM ? 139 [3.5-5.1] ?? MMOL/L ? POTASSIUM ?3.0 Cf ?09/22/14 1530 Critical value called with verification read back Test(s):POTASSIUM Contact Name:LISSETTE DOSS Location:[facility] Date/Time and Lab ID:09/22/14 16:40 [id number] [97.0-110.0] MMOL/L ? CHLORIDE ?98.0 [22.0-32.0] ??MMOL/L ? TOTAL CO2 ? 26.7 ?? [8-16] ?MMOL/L ? ANION GAP ? 17 H ??[70-199] ?? MG/DL ?GLUCOSE ? 94 f [6.2-8.2] ?? G/DL ? TOTAL PROTEIN ?7.7 [3.6-5.0] ?? G/DL ? ALBUMIN ?4.7 [1.1-1.8] ?A/G RATIO ?1.6 [8.6-10.2] ??MG/DL ?CALCIUM ?9.1 [0.1-1.2] ?? MG/DL ?BILI TOTAL ? 0.7 ??[40-130] ?? U/L ?ALK PHOS ?63 ??[10-45] ?U/L ?AST(SGOT) ? 29 f Footnotes and Symbols: H = High, C = Critical, f = Footnote GLUCOSE (07/07/14 -- Current) Note:The glucose is assumed non fasting Fastin-99 mg/dl Random: 70-199 mg/dl Either a fasting glucose > 126 mg/dL or a random glucose > 200 mg/dL plus symptoms is diagnostic of diabetes when confirmed on another day. Fasting values > 100 mg/dl but < 125 mg/dL are diagnostic of impaired fasting glucose. AST(SGOT) (10/08/13 -- Current) ?? CONTINUED ?Page: ?? 2 Patient No: [id number] ? [facility] Patient Name: MELLO HERBERT ?[facility] Age: 49 YRS ?: 1965 ?Sex:M ?[address] )[id number] ?? Adm Dt: 09/22/2014 ?[place] ??[address] Created: 12/01/2014 ??0032 ?? Pt. Type: D ? Discharge Dt: 09/30/2014 ? Pathologists: Annel Kelly MD Admit Attend Dr: SHAD IVERSON MD ? GENERAL CHEMISTRY ?Collection Date: ?09/22/14 ?Collection Time: ?1530 ? Ref Range: ?? Units: ?? [5-50] ?U/L ?ALT(SGPT) ? 21 f [8.0-25.0] ??MG/DL ?BUN ?9.2 ??[10-20] ? B/C RATIO ?7 L [0.70-1.30] ??MG/DL ?CREATININE ?1.24 f ?09/22/14 1530 eGFR:66 ml/min/1.73sq.m if non -South African. eGFR: >70 ml/min/1.73sq.m if -South African. AVE GFR for 50-59 yr. age group: ??93 ml/min/1.73sq.m Calculated using MDRD Equation FOOTNOTE ADDED ON ?? 09/22/14 ?? AT 1640 BY 999 ?[facility] ?Collection Date: ?04/29/15 ?Collection Time: ?1530 ? Ref Range: ?? Units: ??[24-336] ?? mcg/L ?FERRITIN @ ?32 ??[50-150] ?? mcg/dL ? IRON @ ?91 ? mcg/dL ? TIBC @ ? 290 f ??[14-50] ?% ?SAT @ ? 31 Footnotes and Symbols: L = Low, f = Footnote @ = FERRITIN, IRON, TIBC, SAT Performed at ??[facility], ?[place] ALT(SGPT) (12/16/12 -- Current) TIBC........... 09/22/14 1530 REFERENCE VALUE 250 - 400 ?? END OF CHART ? Page: ?? 3 us Historical Provider LAB BLOOD ORDERABLES Ibeth olson Result HISTORICAL RESULTS * Serum iron binding capacity (09/22/2014 3:30 PM CDT) Iron 91 50 - 150 mcg/dl HISTORICAL RESULTS TIBC 290 mcg/dl HISTORICAL RESULTS Comment: REFERENCE VALUE 250 - 400 Iron saturation 31 14 - 50 % HIST ORICAL RESULTS Serum 09/22/2014 3:30 PM CDT Shad Iverson MD LAB BLOOD ORDERABLES Fin al Result Performing Organization Address [facility] de Phone Number HISTORICAL RESULTS * Serum ferritin (09/22/2014 3:30 PM CDT) Ferritin 32 24 - 336 ng/ml HISTORICAL RESULTS Serum 09/22/2014 3:30 PM CDT Shad Iverson MD LAB BLOOD ORDERABLES Fin al Result Performing Organization Address [facility] de Phone Number HISTORICAL RESULTS * (ABNORMAL) Blood cell count (CBC) (09/22/2014 3:30 PM CDT) WBC 8.0 4.0 - 10.5 K/cumm HISTORICAL RESULTS RBC 5.84 4.60 - 6.20 M/cumm HISTORICAL RESULTS Hgb 17.5 14.0 - 18.0 g/dl HISTORICAL RESULTS Hct 50.0 40.0 - 54.0 % HISTORICAL RESULTS MCV 85.6 77.0 - 97.0 fl HISTORICAL RESULTS MCH 30.0 23.0 - 34.0 pg HISTORICAL RESULTS MCHC 35.0 32.0 - 36.0 g/dl HISTORICAL RESULTS Rdw 15.6(H) 11.5 - 14.5 % HISTORICAL RESULTS Platelets 216 150 - 400 K/cumm HISTORICAL RESULTS MPV 10.7(H) 7.4 - 10.4 fl HISTORICAL RESULTS Blood specimen (specimen) 09/22/2014 3:30 PM CDT Shad Iverson MD LAB BLOOD ORDERABLES Fin al Result Performing Organization Address City/State/[facility] Co de Phone Number HISTORICAL RESULTS * (ABNORMAL) Blood WBC cell morphologic exam, auto (09/22/2014 3:30 PM CDT) Lymphocytes 25.8 25.0 - 33.0 % HISTORICAL RESULTS Monos 10.2 0.0 - 13.0 % HISTORICAL RESULTS Neutrophils 61.1 54.0 - 69.0 % HISTORICAL RESULTS Eosinophils 2.2 0.0 - 10.0 % HISTORICAL RESULTS Basophils 0.5 0.0 - 1.0 % HISTORICAL RESULTS Immature granulocytes 0.2 0.0 - 1.0 % HISTORICAL RESULTS Lymphocytes, abs 2.1 1.2 - 3.4 K/cumm HISTORICAL RESULTS Monocytes, absolute 0.8(L) 1.1 - 1.9 K/cumm HISTORICAL RESULTS Neutrophils, abs 4.9 1.4 - 6.5 K/cumm HISTORICAL RESULTS Eosinophils, abs 0.2 0.0 - 0.7 cells/cumm HISTORICAL RESULTS Basophils, abs 0.0 0.0 - 0.2 K/cumm HISTORICAL RESULTS Immature granulocyte, abs 0.0 0.0 - 0.0 K/cumm HISTORICAL RESULTS Blood specimen (specimen) 09/22/2014 3:30 PM CDT Shad Iverson MD LAB BLOOD ORDERABLES Fin al Result Performing Organization Address [facility] de Phone Number HISTORICAL RESULTS * (ABNORMAL) Serum comprehensive metabolic panel (09/22/2014 3:30 PM CDT) BUN 9.2 8.0 - 25.0 mg/dl HISTORICAL RESULTS Sodium 139 135 - 145 mmol/L HISTORICAL RESULTS Potassium, sr 3.0(VL) 3.5 - 5.1 mmol/L HISTORICAL RESULTS Comment: Critical value called with verification read back Test(s):POTASSIUM Contact Name:LISSETTE DOSS Location:[facility]S Date/Time and Lab ID:09/22/14 16:40 [id number] Chloride 98 97 - 110 mmol/L HISTORICAL RESULTS CO2 27 22 - 32 mmol/L HISTORICAL RESULTS Glucose 94 70 - 199 mg/dl HISTORICAL RESULTS Comment: Note:The glucose is assumed non fasting Fastin-99 mg/dl Random: 70-199 mg/dl Either a fasting glucose > 126 mg/dL or a random glucose > 200 mg/dL plus symptoms is diagnostic of diabetes when confirmed on another day. Fasting values > 100 mg/dl but < 125 mg/dL are diagnostic of impaired fasting glucose. Creatinine 1.24 0.70 - 1.30 mg/dl HISTORICAL RESULTS Comment: eGFR:66 ml/min/1.73sq.m if non -South African. eGFR: >70 ml/min/1.73sq.m if -South African. AVE GFR for 50-59 yr. age group: ??93 ml/min/1.73sq.m Calculated using MDRD Equation BUN/creat ratio 7(L) 10 - 20 HIST ORICAL RESULTS A. gap 17(H) 8 - 16 mmol/L HISTORICAL RESULTS Protein, sr 7.7 6.2 - 8.2 g/dl HISTORICAL RESULTS Alb 4.7 3.6 - 5.0 g/dl HISTORICAL RESULTS Alb/glob ratio 1.6 1.1 - 1.8 HISTO RICAL RESULTS Calcium 9.1 8.6 - 10.2 mg/dl HISTORICAL RESULTS Bilirubin 0.7 0.1 - 1.2 mg/dl HISTORICAL RESULTS Alk phos 63 40 - 130 Units/L HISTORICAL RESULTS AST 29 10 - 45 Units/L HISTORICAL RESULTS ALT 21 5 - 50 Units/L HISTORICAL RESULTS Serum 09/22/2014 3:30 PM CDT Shad Iverson MD LAB BLOOD ORDERABLES Fin al Result HISTORICAL RESULTS documented in this encounter Visit Diagnoses Diagnosis Iron deficiency anemia Unspecified iron deficiency anemia Crohn's disease of both small and large intestine with intestinal obstruction (HCC) documented in this encounter
--- OUTSIDE RECORDS SUMMARY | 2024-05-18 22:18 | XMS_ITS | Encounter Summary ---
Author Organization [facility] Healthcare Address [address] [place] [address] Care Team Providers Care Hot Shot Name Role Phone Unavailable Primary Care Provider Unavailabl e Encounter Details Date Type Department Care Team (Late st Contact Info) Description 09/24/2013 4:05 PM CDT - 09/24/2013 11:59 PM CDT Hospital Encounter [facility], Shad Melo MD [address] [place] [phone] Iron deficiency anemia Social History Tobacco Use Types Packs/Day Years Used Date Smoking Tobacco: Never Assessed Sex and Gender Information Value Date Recorded Sex Assigned at Not on file 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 Gender Identity Not on file Sexual Orientation Not on file documented as of this encounter Plan of Treatment Upcoming Encounters Date Type Department Care Team (Late st Contact Info) Description 05/22/2024 10:45 AM CARPENTRY PROFESSIONAL Hospital Encounter [facility] Endoscopy [address] [place] [address] Nikolay Boucher MD [facility] [address] [facility] [address] [place] [address] 05/22/2024 10:45 AM CARPENTRY PROFESSIONAL - 05/22/2024 11:15 AM CARPENTRY PROFESSIONAL Surgery [facility] Endoscopy [address] [place] [address] Nikolay Boucher MD [address] [place] [address] EGD Scheduled Procedures Name Priority Associated Diagnoses Date/Ti me ESOPHAGOGASTRODUODENOSCOPY Crohn's disease of both small and large intestine with intestinal obstruction (HCC) 05/22/2024 10:45 AM CARPENTRY PROFESSIONAL documented as of this encounter Procedures Procedure Name Priority Date/Time Associated Diagnosis Comments SERUM PHOSPHORUS Routine 09/24/2013 4:30 PM CDT SERUM MAGNESIUM Routine 09/24/2013 4:30 PM CDT SERUM FOLIC ACID Routine 09/24/2013 4:30 PM CDT SERUM COMPREHENSIVE METABOLIC PANEL Routine 09/24/2013 4:30 PM CDT BLOOD RETICULOCYTE Routine 09/24/2013 4: 30 PM CDT SERUM IRON BINDING CAPACITY Routine 09/24/2013 4:25 PM CDT SERUM FERRITIN Routine 09/24/2013 4:25 PM CDT BLOOD CELL COUNT (CBC) Routine 4 4:22 PM CDT SERUM CYANOCOBALAMIN (VITAMIN B12) Routine 09/24/2013 11:30 AM CDT DISCHARGE LABORATORY CUMULATIVE REPORT Routine 09/24/2013 12:00 AM CDT documented in this encounter Results * Serum phosphorus (09/24/2013 4:30 PM CDT) Phosphorus, sr 2.9 2.5 - 4.9 mg/dl HISTORICAL RESULTS Serum 09/24/2013 4:30 PM CDT us Shad Iverson MD LAB BLOOD ORDERABLES Fin al Result HISTORICAL RESULTS * Serum folic acid (09/24/2013 4:30 PM CDT) Folic acid >24.0 >5.4 mcg/L HISTORIC AL RESULTS Serum 09/24/2013 4:30 PM CDT Shad Iverson MD LAB BLOOD ORDERABLES Fin al Result Performing Organization Address [facility] de Phone Number HISTORICAL RESULTS * Serum magnesium (09/24/2013 4:30 PM CDT) Magnesium 1.7 1.5 - 2.2 mg/dl HISTORICAL RESULTS Serum 09/24/2013 4:30 PM CDT Shad Iverson MD LAB BLOOD ORDERABLES Fin al Result Performing Organization Address [facility] de Phone Number HISTORICAL RESULTS * (ABNORMAL) Blood reticulocyte (09/24/2013 4:30 PM CDT) Retics 1.85(H) 0.50 - 1.50 % HISTORICAL RESULTS Reticulocyte Hgb 33.5 25.4 - 38.4 pg HISTORICAL RESULTS Blood specimen (specimen) 09/24/2013 4:30 PM CDT Shad Iverson MD LAB BLOOD ORDERABLES Fin al Result Performing Organization Address [facility] de Phone Number HISTORICAL RESULTS * (ABNORMAL) Serum comprehensive metabolic panel (09/24/2013 4:30 PM CDT) BUN 19.0 6.0 - 23.0 mg/dl HISTORICAL RESULTS Sodium 138 134 - 143 mmol/L HISTORICAL RESULTS Potassium, sr 3.7 3.4 - 5.0 mmol/L HISTORICAL RESULTS Chloride 102 99 - 108 mmol/L HISTORICAL RESULTS CO2 28 23 - 32 mmol/L HISTORICAL RESULTS Glucose 100 70 - 199 mg/dl HISTORICAL RESULTS Comment: Note:The glucose is assumed non fasting Fastin-99 mg/dl Random: 70-199 mg/dl Either a fasting glucose > 126 mg/dL or a random glucose > 200 mg/dL plus symptoms is diagnostic of diabetes when confirmed on another day. Fasting values > 100 mg/dl but < 125 mg/dL are diagnostic of impaired fasting glucose. New reference ranges implemented 04/06/2013. Creatinine 1.62(H) 0.60 - 1.30 mg/dl HISTORICAL RESULTS BUN/creat ratio 12 10 - 20 HIST ORICAL RESULTS A. gap 11 7 - 14 mmol/L HISTORICAL RESULTS Protein, sr 6.9 6.4 - 8.0 g/dl HISTORICAL RESULTS Alb 3.7 3.3 - 4.5 g/dl HISTORICAL RESULTS Alb/glob ratio 1.2 1.1 - 1.8 HISTO RICAL RESULTS Calcium 8.1(L) 8.6 - 9.8 mg/dl HISTORICAL RESULTS Bilirubin 0.9 0.0 - 1.1 mg/dl HISTORICAL RESULTS Alk phos 102 44 - 125 Units/L HISTORICAL RESULTS AST 34 10 - 45 Units/L HISTORICAL RESULTS Comment:AST - NOTE REFERENCE RANGE CHANGE ALT 36 15 - 70 Units/L HISTORICAL RESULTS Serum 09/24/2013 4:30 PM CDT Shad Iverson MD LAB BLOOD ORDERABLES Fin al Result Performing Organization Address [facility] de Phone Number HISTORICAL RESULTS * Serum ferritin (09/24/2013 4:25 PM CDT) Ferritin 12 10 - 244 ng/ml HISTORICAL RESULTS Serum 09/24/2013 4:25 PM CDT Shad Iverson MD LAB BLOOD ORDERABLES Fin al Result Performing Organization Address [facility] de Phone Number HISTORICAL RESULTS * Serum iron binding capacity (09/24/2013 4:25 PM CDT) Iron 44 24 - 152 mcg/dl HISTORICAL RESULTS TIBC 393 199 - 474 mcg/dl HISTORICAL RESULTS Iron saturation 11 5 - 45 % HIST ORICAL RESULTS Serum 09/24/2013 4:25 PM CDT Shad Iverson MD LAB BLOOD ORDERABLES Fin al Result Performing Organization Address [facility] de Phone Number HISTORICAL RESULTS * (ABNORMAL) Blood cell count (CBC) (09/24/2013 4:22 PM CDT) WBC 8.0 4.5 - 10.6 K/cumm HISTORICAL RESULTS RBC 4.56 4.00 - 6.01 M/cumm HISTORICAL RESULTS Hgb 13.6 11.0 - 18.1 g/dl HISTORICAL RESULTS Hct 39.6 35.0 - 60.0 % HISTORICAL RESULTS MCV 86.9 80.0 - 100.0 fl HISTORICAL RESULTS MCH 29.8 27.0 - 31.0 pg HISTORICAL RESULTS MCHC 34.3 33.0 - 37.0 g/dl HISTORICAL RESULTS Rdw 15.4(H) 11.5 - 14.6 % HISTORICAL RESULTS Platelets 218 150 - 400 K/cumm HISTORICAL RESULTS MPV 8.1 7.4 - 10.4 fl HISTORICAL RESULTS Lymphocytes 26.4 20.0 - 50.0 % HISTORICAL RESULTS Monos 11.5 1.0 - 13.0 % HISTORICAL RESULTS Neutrophils 62.1 30.0 - 70.0 % HISTORICAL RESULTS Lymphocytes, abs 2.1 0.9 - 5.3 K/cumm HISTORICAL RESULTS Monocytes, absolute 0.9 0.1 - 1.1 K/cumm HISTORICAL RESULTS Neutrophils, abs 5.0 1.3 - 7.4 K/cumm HISTORICAL RESULTS Blood specimen (specimen) 09/24/2013 4:22 PM CDT Shad Iverson MD LAB BLOOD ORDERABLES Fin al Result Performing Organization Address [facility] de Phone Number HISTORICAL RESULTS * Serum cyanocobalamin (vitamin B12) (09/24/2013 11:30 AM CDT) Cyanocobalamin (Vit B12) 624 211 - 911 pg/ml HISTORICAL RESULTS Serum 09/24/2013 11:3 0 AM CDT Narrative HISTORICAL RESULTS - 09/24/2013 1:17 PM CDT VIT B12 REFERENCE RANGE 211-911 pg/ml Shad Iverson MD LAB BLOOD ORDERABLES Fin al Result HISTORICAL RESULTS * Discharge Laboratory Cumulative Report (09/24/2013 12:00 AM CDT) 09/24/2013 Narrative HISTORICAL RESULTS - 11/25/2013 12:38 AM CDT Patient No: [id number] ? [facility] Patient Name: MELLO HERBERT ?[facility] Age: 48 YRS ?: 1965 ?Sex:M ?[address] )[id number] ?? Adm Dt: 09/24/2013 ?[place], [place] ??[address] Created: 11/25/2013 ??0038 ?? Pt. Type: D ? Discharge Dt: 09/24/2013 ? Pathologists: Annel Kelly MD Admit Attend : SHAD IVERSON MD ? BLOOD CELL COUNTS ?Collection Date: ?09/24/13 ?Collection Time: ?1622 ? Ref Range: ?? Units: [4.50-10.60] /CMM ? WBC X 10^3 ?8.00 [4.00-6.01] ??/CMM ? RBC X 10^6 ?4.56 [11.0-18.1] ??G/DL ? HGB ? 13.6 [35.0-60.0] ??% ?HCT ? 39.6 [80.0-100.0] FL ? MCV ? 86.9 [27.0-31.0] ??PG ? MCH ? 29.8 [33.0-37.0] ??% ?MCHC ?34.3 [11.5-14.6] ??% ?RDW ? 15.4 H [150-400] ?? /CMM ? PLT X 10^3 ? 218 [7.4-10.4] ??FL ? MPV ?8.1 [20.0-50.0] ??% ?LYMPH PERCENT ? 26.4 [1.0-13.0] ??% ?MONO PERCENT ?11.5 [30.0-70.0] ??% ?GRANULOCYE % ?62.1 [0.9-5.3] ?? /CMM ? A LYMPH ?2.1 [1.3-7.4] ?? /CMM ? A GRANULOCYTE ?5.0 [0.1-1.1] ?? /CMM ? A MONO ? 0.9 ?SPECIAL HEMATOLOGY ?Collection Date: ?09/24/13 ?Collection Time: ?1630 ? Ref Range: ?? Units: ?RETICULOCYTES [0.50-1.50] ??% ?RETIC PERCENT ? 1.85 H [25.4-38.4] ??pg ? RETIC HGB ? 33.5 Footnotes and Symbols: H = High ?? CONTINUED ?Page: ?? 1 Patient No: [id number] ? [facility] Patient Name: MELLO HERBERT ?[facility] Age: 48 YRS ?: 1965 ?Sex:M ?[address] )[id number] ?? Adm Dt: 09/24/2013 ?[place], [place] ??[address] Created: 11/25/2013 ??0038 ?? Pt. Type: D ? Discharge Dt: 09/24/2013 ? Pathologists: Annel Kelly MD Admit Attend Dr: SHAD IVERSON MD ? GENERAL CHEMISTRY ?Collection Date: ?09/24/13 ? 09/24/13 ?Collection Time: ?1630 ? 1625 ? Ref Range: ?? Units: [134-143] ?? MMOL/L ? SODIUM ? 138 [3.4-5.0] ?? MMOL/L ? POTASSIUM ?3.7 [99.0-108.0] MMOL/L ? CHLORIDE ? 102.0 [23.0-32.0] ??MMOL/L ? TOTAL CO2 ? 28.5 ?? [7-14] ?MMOL/L ? ANION GAP ? 11 ??[70-199] ?? MG/DL ?GLUCOSE ?100 f [6.4-8.0] ?? G/DL ? TOTAL PROTEIN ?6.9 [3.3-4.5] ?? G/DL ? ALBUMIN ?3.7 [1.1-1.8] ?A/G RATIO ?1.2 [8.6-9.8] ?? MG/DL ?CALCIUM ?8.1 L ??[10-244] ?? NG/ML ?FERRITIN ? 12 [0.0-1.1] ?? MG/DL ?BILI TOTAL ? 0.9 ??[44-125] ?? U/L ?ALK PHOS ? 102 [2.5-4.9] ?? MG/DL ?PHOSPHORUS ? 2.9 ??[24-152] ?? UG/DL ?IRON ? 44 ??[10-45] ?U/L ?AST(SGOT) ? 34 f ??[15-70] ?U/L ?ALT(SGPT) ? 36 f [6.0-23.0] ??MG/DL ?BUN ? 19.0 Footnotes and Symbols: L = Low, f = Footnote GLUCOSE (04/28/13 -- Current) Note:The glucose is assumed non fasting Fastin-99 mg/dl Random: 70-199 mg/dl Either a fasting glucose > 126 mg/dL or a random glucose > 200 mg/dL plus symptoms is diagnostic of diabetes when confirmed on another day. Fasting values > 100 mg/dl but < 125 mg/dL are diagnostic of impaired fasting glucose. New reference ranges implemented 04/06/2013. AST(SGOT) (11/05/12 -- 10/07/13) AST ??- NOTE REFERENCE RANGE CHANGE ALT(SGPT) (12/16/12 -- Current) ?? CONTINUED ?Page: ?? 2 Patient No: [id number] ? [facility] Patient Name: MELLO HERBERT ?[facility] Age: 48 YRS ?: 1965 ?Sex:M ?[address] )[id number] ?? Adm Dt: 09/24/2013 ?[place] ??[address] Created: 11/25/2013 ??0038 ?? Pt. Type: D ? Discharge Dt: 09/24/2013 ? Pathologists: Annel Kelly MD Admit DrMonroe Attend Dr: SHAD IVERSON MD ? GENERAL CHEMISTRY ?Collection Date: ?09/24/13 ? 09/24/13 ?Collection Time: ?1630 ? 1625 ? Ref Range: ?? Units: ??[10-20] ? B/C RATIO ? 12 [0.60-1.30] ??MG/DL ?CREATININE ?1.62 H [199-474] ?? UG/DL ?TIBC ?393 ?? [5-45] ?% ?% SATURATION ? 11 [1.5-2.2] ?? MG/DL ?MAGNESIUM ?1.7 ?SPECIAL CHEMISTRY ?Collection Date: ?09/24/13 ?Collection Time: ?1630 ? Ref Range: ?? Units: [211-911] ?? pg/ml ?VITAMIN B12 ?624 f [> ?5.4] ?? ng/ml ?FOLATE ? >24.0 f Footnotes and Symbols: H = High, f = Footnote VITAMIN B12 (03/05/08 -- Current) VIT B12 REFERENCE RANGE 211-911 pg/ml FOLATE (07/11/09 -- Current) ?? END OF CHART ? Page: ?? 3 us Historical Provider LAB BLOOD ORDERABLES Ibeth olson Result HISTORICAL RESULTS documented in this encounter Visit Diagnoses Diagnosis Iron deficiency anemia Unspecified iron deficiency anemia Crohn's disease of both small and large intestine with intestinal obstruction (HCC) documented in this encounter
--- OUTSIDE RECORDS SUMMARY | 2024-05-18 22:18 | XMS_ITS | Encounter Summary ---
Author Organization [facility] Healthcare Address [address] [place] [address] Care Team Providers Care Car Lubricator Name Role Phone Unavailable Primary Care Provider Unavailabl e Encounter Details Date Type Department Care Team (Late st Contact Info) Description 07/09/2014 8:55 AM NET SQL DEVELOPER - 07/21/2014 11:59 PM NET SQL DEVELOPER Hospital Encounter [facility] Iverson, Shad Melo MD [address] [place] [id number] Iron deficiency anemia Social History Tobacco Use Types Packs/Day Years Used Date Smoking Tobacco: Never Assessed Sex and Gender Information Value Date Recorded Sex Assigned at Not on file Legal Sex Male 1:20 AM NET SQL DEVELOPER Gender Identity Not on file Sexual Orientation Not on file documented as of this encounter Plan of Treatment Upcoming Encounters Date Type Department Care Team (Late st Contact Info) Description 05/22/2024 10:45 AM NET SQL DEVELOPER Hospital Encounter [facility] Endoscopy [address] [place] [address] Nikolay Boucher MD [address] [facility] [address] [place] [address] 05/22/2024 10:45 AM NET SQL DEVELOPER - 05/22/2024 11:15 AM NET SQL DEVELOPER Surgery [facility] Endoscopy [address] [place] [address] Nikolay Boucher MD [address] [place] [address] EGD Scheduled Procedures Name Priority Associated Diagnoses Date/Ti me ESOPHAGOGASTRODUODENOSCOPY Crohn's disease of both small and large intestine with intestinal obstruction (HCC) 05/22/2024 10:45 AM NET SQL DEVELOPER documented as of this encounter Procedures Procedure Name Priority Date/Time Associated Diagnosis Comments DISCHARGE LABORATORY CUMULATIVE REPORT Routine 07/21/2014 12:00 AM NET SQL DEVELOPER SERUM BASIC METABOLIC PANEL Routine 07/09/2014 9:10 AM NET SQL DEVELOPER BLOOD WBC CELL MORPHOLOGIC EXAM, AUTO Routine 07/09/2014 9:10 AM NET SQL DEVELOPER BLOOD CELL COUNT (CBC) Routine 5 9:10 AM NET SQL DEVELOPER SERUM 25-HYDROXYCHOLECALCIFE ROL (VITAMIN D) Routine 07/09/2014 3:10 AM NET SQL DEVELOPER REFERRED TEST, MISCELLANEOUS Routine 07/09/2014 3:10 AM NET SQL DEVELOPER REFERRED TEST, MISCELLANEOUS Routine 07/09/2014 3:10 AM NET SQL DEVELOPER documented in this encounter Results * Discharge Laboratory Cumulative Report (07/21/2014 12:00 AM NET SQL DEVELOPER) 07/21/2014 Narrative HISTORICAL RESULTS - 09/21/2014 12:37 AM CDT Patient No: [id number] ? [facility] Patient Name: MELLO HERBERT ?[facility] Age: 49 YRS ?: 1965 ?Sex:M ?[address] )[phone] ?? Adm Dt: 07/09/2014 ?[place], [place] ??[address] Created: 09/21/2014 ??0037 ?? Pt. Type: D ? Discharge Dt: 07/21/2014 ? Pathologists: Annel Kelly MD Admit Attend Dr: SHAD IVERSON MD ? BLOOD CELL COUNTS ?Collection Date: ?07/09/14 ?Collection Time: ?0910 ? Ref Range: ?? Units: [4.00-10.50] /CMM ? WBC X 10^3 ?7.82 [4.60-6.20] ??/CMM ? RBC X 10^6 ?5.56 [14.0-18.0] ??G/DL ? HGB ? 15.2 [40.0-54.0] ??% ?HCT ? 46.2 [77.0-97.0] ??FL ? MCV ? 83.1 [23.0-34.0] ??PG ? MCH ? 27.3 [32.0-36.0] ??% ?MCHC ?32.9 [11.5-14.5] ??% ?RDW ? 16.2 H [150-400] ?? /CMM ? PLT X 10^3 ? 211 ?BLOOD CELL DIFFERENTIAL ?Collection Date: ?07/09/14 ?Collection Time: ?0910 ? Ref Range: ?? Units: [54.0-69.0] ??% ?NEUTROPHILS ? 64.6 [25.0-33.0] ??% ?LYMPHOCYTES ? 19.6 L [0.0-13.0] ??% ?MONOCYTES ? 11.3 [0.0-10.0] ??% ?EOSINOPHILS ?3.6 [0.0-1.0] ?? % ?BASOPHILS ?0.5 ? /CMM ? A LYMPHOCYTE ? 1.5 [0.0-1.0] ?? % ?IMM GRAN % ? 0.4 [0.00-0.02] ??/CMM ? A IMM GRAN ?0.03 H [1.1-1.9] ?? /CMM ? A MONOCYTE ? 0.9 L [1.4-6.5] ?? /CMM ? A NEUTROPHIL ? 5.1 [0.0-0.7] ?? /CMM ? A EOSINOPHIL ? 0.3 [0.0-0.2] ?? /CMM ? A BASOPHIL ? 0.0 Footnotes and Symbols: L = Low, H = High ?? CONTINUED ?Page: ?? 1 Patient No: [id number] ? [facility] Patient Name: MELLO HERBERT ?[facility] Age: 49 YRS ?: 1965 ?Sex:M ?[address] )[id number] ?? Adm Dt: 07/09/2014 ?[place] ??[address] Created: 09/21/2014 ??0037 ?? Pt. Type: D ? Discharge Dt: 07/21/2014 ? Pathologists: Annel Kelly MD Admit DrMonroe Attend Dr: SHAD IVERSON MD ? GENERAL CHEMISTRY ?Collection Date: ?07/09/14 ?Collection Time: ?0910 ? Ref Range: ?? Units: [135-145] ?? MMOL/L ? SODIUM ? 139 [3.5-5.1] ?? MMOL/L ? POTASSIUM ?3.7 [97.0-110.0] MMOL/L ? CHLORIDE ?99.0 [22.0-32.0] ??MMOL/L ? TOTAL CO2 ? 26.8 ?? [7-14] ?MMOL/L ? ANION GAP ? 17 H ??[70-199] ?? MG/DL ?GLUCOSE ? 87 f [275-295] ?? MOSM/K ? CALCULATED OSMO ?277 [8.6-10.2] ??MG/DL ?CALCIUM ?8.9 [8.0-25.0] ??MG/DL ?BUN ? 12.8 ??[10-20] ? B/C RATIO ?8 L [0.70-1.30] ??MG/DL ?CREATININE ?1.63 Hf ?07/09/14909 eGFR:48 ml/min/1.73sq.m if non -Azerbaijani. eGFR:58 ml/min/1.73sq.m if -Azerbaijani. AVE GFR for 50-59 yr. age group: ??93 ml/min/1.73sq.m Calculated using MDRD Equation FOOTNOTE ADDED ON ?? 07/09/14 ?? AT 1037 BY 999 Footnotes and Symbols: L = Low, H = High, f = Footnote GLUCOSE (07/07/14 -- Current) Note:The glucose is assumed non fasting Fastin-99 mg/dl Random: 70-199 mg/dl Either a fasting glucose > 126 mg/dL or a random glucose > 200 mg/dL plus symptoms is diagnostic of diabetes when confirmed on another day. Fasting values > 100 mg/dl but < 125 mg/dL are diagnostic of impaired fasting glucose. ?? CONTINUED ?Page: ?? 2 Patient No: [id number] ? [facility] Patient Name: MELLO HERBERT ?[facility] Healthcare Age: 49 YRS ?: 1965 ?Sex:M ?[address] )[phone] ?? Adm Dt: 07/09/2014 ?[place], [place] ??[address] Created: 09/21/2014 ??0037 ?? Pt. Type: D ? Discharge Dt: 07/21/2014 ? Pathologists: Annel Kelly MD Admit Dr. Attend Dr: SHAD IVERSON MD ?SPECIAL CHEMISTRY ?Collection Date: ?07/09/14 ?Collection Time: ?909 ? Ref Range: ?? Units: ??[30-80] ?ng/mL ?25OH VITAMIN D ?23 Lf ?[facility] ?Collection Date: ?07/09/14 ?Collection Time: ?909 ? Ref Range: ?? Units: ?BEVERLEY RAGLAND GO @ ?SEE FN f ?BEVERLEY MODIG GO @ ?SEE FN f Footnotes and Symbols: L = Low, f = Footnote @ = BEVERLEY KOTHARI Performed at ??[place] [address] VITAMIN D (11/12/13 -- Current) Fluorescein dye used in some angiography procedures interferes with the Vitamin D assay, falsely elevating the result. Vitamin D should not be performed within 3 days of fluorescein use, longer in patients with renal insufficiency, to avoid this interference. BEVERLEY KOTHARI... 07/09/14909 Test ? Result ?? Flag ??Unit ?RefValue Iron and Total Fe Binding Cap, S ?? Iron ? 39 ?L ?mcg/dL ??50 - 150 ?? Total Iron Binding Capacity ?406 ? H ?mcg/dL ? REFERENCE VALUE ? 250 - 400 ?? Percent Saturation ? 10 ?L ?% ? 14 - 50 [facility] GO... 07/09/14909 Test ? Result ?Flag ??Unit ?? RefValue Ferritin, S ?8 ?L ?mcg/L ??24 - 336 ?? END OF CHART ? Page: ?? 3 Historical Provider LAB BLOOD ORDERABLES Ibeth olson Result Performing Organization Address City/[facility] Co de Phone Number HISTORICAL RESULTS * (ABNORMAL) Serum basic metabolic panel (07/09/2014 9:10 AM NET SQL DEVELOPER) BUN 12.8 8.0 - 25.0 mg/dl HISTORICAL RESULTS Sodium 139 135 - 145 mmol/L HISTORICAL RESULTS Potassium, sr 3.7 3.5 - 5.1 mmol/L HISTORICAL RESULTS Chloride 99 97 - 110 mmol/L HISTORICAL RESULTS CO2 27 22 - 32 mmol/L HISTORICAL RESULTS Glucose 87 70 - 199 mg/dl HISTORICAL RESULTS Comment: Note:The glucose is assumed non fasting Fastin-99 mg/dl Random: 70-199 mg/dl Either a fasting glucose > 126 mg/dL or a random glucose > 200 mg/dL plus symptoms is diagnostic of diabetes when confirmed on another day. Fasting values > 100 mg/dl but < 125 mg/dL are diagnostic of impaired fasting glucose. Creatinine 1.63(H) 0.70 - 1.30 mg/dl HISTORICAL RESULTS Comment: eGFR:48 ml/min/1.73sq.m if non -Azerbaijani. eGFR:58 ml/min/1.73sq.m if -Azerbaijani. AVE GFR for 50-59 yr. age group: ??93 ml/min/1.73sq.m Calculated using MDRD Equation BUN/creat ratio 8(L) 10 - 20 HIST ORICAL RESULTS A. gap 17(H) 7 - 14 mmol/L HISTORICAL RESULTS Osmo, calc 277 275 - 295 mOsm/kg HISTORICAL RESULTS Calcium 8.9 8.6 - 10.2 mg/dl HISTORICAL RESULTS Serum 07/09/2014 9:10 AM NET SQL DEVELOPER Shad Iverson MD LAB BLOOD ORDERABLES Ramón al Result Performing Organization Address [facility] Co de Phone Number HISTORICAL RESULTS * (ABNORMAL) Blood cell count (CBC) (07/09/2014 9:10 AM NET SQL DEVELOPER) WBC 7.8 4.0 - 10.5 K/cumm HISTORICAL RESULTS RBC 5.56 4.60 - 6.20 M/cumm HISTORICAL RESULTS Hgb 15.2 14.0 - 18.0 g/dl HISTORICAL RESULTS Hct 46.2 40.0 - 54.0 % HISTORICAL RESULTS MCV 83.1 77.0 - 97.0 fl HISTORICAL RESULTS MCH 27.3 23.0 - 34.0 pg HISTORICAL RESULTS MCHC 32.9 32.0 - 36.0 g/dl HISTORICAL RESULTS Rdw 16.2(H) 11.5 - 14.5 % HISTORICAL RESULTS Platelets 211 150 - 400 K/cumm HISTORICAL RESULTS MPV 9.8 7.4 - 10.4 fl HISTORICAL RESULTS Blood specimen (specimen) 07/09/2014 9:10 AM NET SQL DEVELOPER Shad Iverson MD LAB BLOOD ORDERABLES Fin al Result HISTORICAL RESULTS * (ABNORMAL) Blood WBC cell morphologic exam, auto (07/09/2014 9:10 AM NET SQL DEVELOPER) [facility] Lymphocytes 19.6(L) 25.0 - 33.0 % HISTORICAL RESULTS Monos 11.3 0.0 - 13.0 % HISTORICAL RESULTS Neutrophils 64.6 54.0 - 69.0 % HISTORICAL RESULTS Eosinophils 3.6 0.0 - 10.0 % HISTORICAL RESULTS Basophils 0.5 0.0 - 1.0 % HISTORICAL RESULTS Immature granulocytes 0.4 0.0 - 1.0 % HISTORICAL RESULTS Lymphocytes, abs 1.5 1.2 - 3.4 K/cumm HISTORICAL RESULTS Monocytes, absolute 0.9(L) 1.1 - 1.9 K/cumm HISTORICAL RESULTS Neutrophils, abs 5.1 1.4 - 6.5 K/cumm HISTORICAL RESULTS Eosinophils, abs 0.3 0.0 - 0.7 cells/cum m HISTORICAL RESULTS Basophils, abs 0.0 0.0 - 0.2 K/cumm HISTORICAL RESULTS Immature granulocyte, abs 0.0(H) 0.0 - 0.0 K/cumm HISTORICAL RESULTS Blood specimen (specimen) 07/09/2014 9:10 AM NET SQL DEVELOPER Shad Iverson MD LAB BLOOD ORDERABLES Ramón al Result HISTORICAL RESULTS * (ABNORMAL) Serum 25-hydroxycholecalciferol (vitamin D) (07/09/2014 3:10 AM NET SQL DEVELOPER) 25-OH Vit D 23(L) 30 - 80 ng/ml HISTORICAL RESULTS Serum 07/09/2014 3:10 AM NET SQL DEVELOPER Narrative HISTORICAL RESULTS - 07/09/2014 4:37 AM NET SQL DEVELOPER Fluorescein dye used in some angiography procedures interferes with the Vitamin D assay, falsely elevating the result. Vitamin D should not be performed within 3 days of fluorescein use, longer in patients with renal insufficiency, to avoid this interference. Shad Iverson MD LAB BLOOD ORDERABLES Ramón al Result Performing Organization Address [facility] de Phone Number HISTORICAL RESULTS * Referred test, miscellaneous (07/09/2014 3:10 AM NET SQL DEVELOPER) Pathologist [facility] Referral specimen, test result SEEFN HISTORICAL RESULTS Miscellaneous 07/09/2014 3:1 0 AM NET SQL DEVELOPER Narrative HISTORICAL RESULTS - 07/10/2014 10:13 AM NET SQL DEVELOPER GOKEY FEC GOKEY FERR Test ? Result ?? Flag ??Unit ?RefValue Iron and Total Fe Binding Cap, S ??Iron ? 39 ?L ?mcg/dL ??50 - 150 ??Total Iron Binding Capacity ?406 ? H ?mcg/dL ? REFERENCE VALUE ?250 - 400 ??Percent Saturation ? 10 ?L ?% ? 14 - 50 Test ? Result ?Flag ??Unit ?? RefValue Ferrithn, S ?8 ?L ?mcg/L ??43 - 669 us Shad Iverson MD LAB BLOOD ORDERABLES Fin al Result HISTORICAL RESULTS * Referred test, miscellaneous (07/09/2014 3:10 AM NET SQL DEVELOPER) Referral specimen, test result SEEFN HISTORICAL RESULTS Miscellaneous 07/09/2014 3:1 0 AM NET SQL DEVELOPER Narrative HISTORICAL RESULTS - 07/10/2014 7:48 AM NET SQL DEVELOPER GOKEY FEC GOKEY FERR Test ? Result ?Flag ??Unit ?? RefValue Ferritin, S ?8 ?L ?mcg/L ??72 - 873 us Shad Iverson MD LAB BLOOD ORDERABLES Fin al Result HISTORICAL RESULTS documented in this encounter Visit Diagnoses Diagnosis Iron deficiency anemia Unspecified iron deficiency anemia Crohn's disease of both small and large intestine with intestinal obstruction (HCC) documented in this encounter
--- OUTSIDE RECORDS SUMMARY | 2024-05-18 22:18 | XMS_ITS | Encounter Summary ---
Author Organization [facility] Facility Care Team Providers Care Pneumatic Systems Operator Name Role Phone Unavailable Primary Care Provider Unavailabl e Encounter Details Date Type Department Care Team (Late Contact Info) Description 12/07/2014 - 12/07/2014 11:59 PM CDT Hospital Encounter [facility] Eleanor Bautista MD [address] [place] [address] Vitamin D deficiency; Polycythemia, secondary; Portal vein thrombosis Social History Tobacco Use Types Packs/Day Years Used Date Smoking Tobacco: Never Assessed Sex and Gender Information Value Date Recorded Sex Assigned at Not on file Legal Sex Male 1:20 AM CONE BAKER MACHINE Gender Identity Not on file Sexual Orientation Not on file documented as of this encounter Plan of Treatment Upcoming Encounters Date Type Department Care Team ([facility] Contact Info) Description 05/22/2024 10:45 AM CONE BAKER MACHINE Hospital Encounter [facility] Endoscopy [address] [place] [address] Nikolay Boucher MD [address] [place] [address] 05/22/2024 10:45 AM CONE BAKER MACHINE - 05/22/2024 11:15 AM CONE BAKER MACHINE Surgery [facility] Endoscopy [address] [place] [address] Nikolay Boucher MD [address] [place] [address] EGD Scheduled Procedures Name Priority Associated Diagnoses Date/Ti me ESOPHAGOGASTRODUODENOSCOPY Crohn's disease of both small and large intestine with intestinal obstruction (HCC) 05/22/2024 10:45 AM CONE BAKER MACHINE documented as of this encounter Procedures Procedure Name Priority Date/Time Associated Diagnosis Comments REFERRED TEST PANEL, MISCELLANEOUS Routine 12/07/2014 12:16 PM CDT MISCELLANEOUS MOLECULAR DIAGNOSTICS REPORT 12/07/2014 MISCELLANEOUS MOLECULAR DIAGNOSTICS REPORT 12/07/2014 DISCHARGE LABORATORY CUMULATIVE REPORT 12/07/2014 documented in this encounter Results * Referred test panel, miscellaneous (12/07/2014 12:16 PM CDT) Referral specimen, test 1 Test Name: JAK2 QUAL BY PCR Specimen Type: PB Supplemental Comments: _ Result:see report in clindesk Units: _ Reference Range: _ Reference Lab: [facility] [address] [place] [address] HISTORICAL RESULTS Referral specimen, test name JAK2 QUAL BY PCR HISTORICAL RESULTS Blood specimen (specimen) 12/07/2014 12:16 PM CDT Eleanor Ramon MD LAB BLOOD ORDERABLES Final Result HISTORICAL RESULTS * MISCELLANEOUS MOLECULAR DIAGNOSTICS REPORT (12/07/2014) Narrative 12/07/2014 Ordered by an unspecified provider. Historical Provider LAB BLOOD ORDERABLES Ibeth l Result * DISCHARGE LABORATORY CUMULATIVE REPORT (12/07/2014) Narrative 12/07/2014 Ordered by an unspecified provider. Historical Provider LAB BLOOD ORDERABLES Ibeth l Result * MISCELLANEOUS MOLECULAR DIAGNOSTICS REPORT (12/07/2014) Narrative 12/07/2014 Ordered by an unspecified provider. us Historical Provider LAB BLOOD ORDERABLES Ibeth l Result documented in this encounter Visit Diagnoses Diagnosis Vitamin D deficiency Polycythemia, secondary Portal vein thrombosis Crohn's disease of both small and large intestine with intestinal obstruction (HCC) documented in this encounter
--- OUTSIDE RECORDS SUMMARY | 2024-05-18 22:18 | XMS_ITS | Encounter Summary ---
Author Organization [facility] Facility Care Team Providers Care Color Maker Name Role Phone Unavailable Primary Care Provider Unavailabl e Encounter Details Date Type Department Care Team (Late st Contact Info) Description 07/23/2013 - 07/23/2013 11:59 PM DENTIST/OWNER Hospital En[facility] Calculus of kidney Social History Tobacco Use Types Packs/Day Years Used Date Smoking Tobacco: Never Assessed Sex and Gender Information Value Date Recorded Sex Assigned at Not on file Legal Sex Male 1:20 AM DENTIST/OWNER Gender Identity Not on file Sexual Orientation Not on file documented as of this encounter Plan of Treatment Upcoming Encounters Date Type Department Care Team (Late st Contact Info) Description 05/22/2024 10:45 AM DENTIST/OWNER Hospital Encounter [facility] Endoscopy [address] [place] [address] Nikolay Boucher MD [address] [place] [address] 05/22/2024 10:45 AM DENTIST/OWNER - 05/22/2024 11:15 AM DENTIST/OWNER Surgery [facility] Endoscopy [address] [place] [address] Nikolay Boucher MD [address] [place] [address] EGD Scheduled Procedures Name Priority Associated Diagnoses Date/Ti me ESOPHAGOGASTRODUODENOSCOPY Crohn's disease of both small and large intestine with intestinal obstruction (HCC) 05/22/2024 10:45 AM DENTIST/OWNER documented as of this encounter Procedures Procedure Name Priority Date/Time Associated Diagnosis Comments ABDOMINAL RADIOGRAPHY, FRONTAL (AP) Routine 07/23/2013 9:30 AM DENTIST/OWNER documented in this encounter Results * ABDOMINAL RADIOGRAPHY, FRONTAL (AP) (07/23/2013 9:30 AM DENTIST/OWNER) Anatomical Region Laterality Modality N/A Radiographic Nicolette ging 07/23/2013 9:30 AM DENTIST/OWNER Narrative 07/23/2013 11:35 AM DENTIST/OWNER JHON YAÑEZ M.D. GUILLERMO ROBLEDO M.D. FINAL REPORT The radiology attending physician has personally reviewed this study, and has reviewed and/or edited this written report and agrees with it. ACC# ??Date Time ??Exam [id number] Jul 23, 2013 09:30:00 [id number] Abdomen single view AP EXAMINATION: ?Abdomen single view. HISTORY: ??Nephrolithiasis. ?? IMPRESSION: Supine view the abdomen is submitted on 2 cassettes. Anastomotic suture line is present in the right lower quadrant. The visualized bowel gas pattern is normal. Phleboliths are present in the pelvis. There are no renal stones. ?? Requested By: YONATHAN SAHU ??ANP Dictated By: ?? GUILLERMO ROBLEDO M.D. ??on Jul 23 2013 11:22A This document has been electronically signed by: JHON YAÑEZ M.D. on Jul 23 2013 11:35A Procedure Note Provider, MD Shaun - 09/25/2016 Janis MCHUGH M.D. FINAL REPORT The radiology attending physician has personally reviewed this study, and has reviewed and/or edited this written report and agrees with it. ACC# Date Time Exam [id number] Jul 23, 2013 09:30:00 [id number] Abdomen single view AP EXAMINATION: Abdomen single view. HISTORY: Nephrolithiasis. IMPRESSION: Supine view the abdomen is submitted on 2 cassettes. Anastomotic suture line is present in the right lower quadrant. The visualized bowel gas pattern is normal. Phleboliths are present in the pelvis. There are no renal stones. Requested By: YONATHAN SAHU ANP Dictated By: GUILLERMO ROBLEDO M.D. on Jul 23 2013 11:22A This document has been electronically signed by: JHON YAÑEZ M.D. on Jul 23 2013 11:35A us Historical Provider MD MOE XR PROCEDURES Final R esult documented in this encounter Visit Diagnoses Diagnosis Calculus of kidney Crohn's disease of both small and large intestine with intestinal obstruction (HCC) documented in this encounter
--- OUTSIDE RECORDS SUMMARY | 2024-05-18 22:19 | XMS_ITS | Encounter Summary ---
Author Organization [facility] Facility Care Team Providers Care Building Attendant Name Role Phone Unavailable Primary Care Provider Unavailabl e Encounter Details Date Type Department Care Team (Late st Contact Info) Description 11/16/2009 - 11/16/2009 11:59 PM CDT Hospital En[facility] Valenzuela, Roxanna Morocho MD [address] [place] [address] Regional enteritis (CMS/HCC) (HCC) Social History Tobacco Use Types Packs/Day Years Used Date Smoking Tobacco: Never Assessed Sex and Gender Information Value Date Recorded Sex Assigned at Not on file Legal Sex Male 1:20 AM TALENT ACQUISITION DIRECTOR Gender Identity Not on file Sexual Orientation Not on file documented as of this encounter Plan of Treatment Upcoming Encounters Date Type Department Care Team (Late Contact Info) Description 05/22/2024 10:45 AM TALENT ACQUISITION DIRECTOR Hospital Encounter [facility] Endoscopy [address] [place] [address] Nikolay Boucher MD [address] [place] [address] 05/22/2024 10:45 AM TALENT ACQUISITION DIRECTOR - 05/22/2024 11:15 AM TALENT ACQUISITION DIRECTOR Surgery [facility] Endoscopy [address] [address] Nikolay Boucher MD [address] [place] [address] EGD Scheduled Procedures Name Priority Associated Diagnoses Date/Ti ga ESOPHAGOGASTRODUODENOSCOPY Crohn's disease of both small and large intestine with intestinal obstruction (HCC) 05/22/2024 10:45 AM TALENT ACQUISITION DIRECTOR documented as of this encounter Visit Diagnoses Diagnosis Regional enteritis (CMS/HCC) (HCC) Regional enteritis of unspecified site Crohn's disease of both small and large intestine with intestinal obstruction (HCC) documented in this encounter
--- OUTSIDE RECORDS SUMMARY | 2024-05-18 22:19 | XMS_ITS | Encounter Summary ---
Author Organization [facility] Facility Care Team Providers Care Petroleum Refining Firer Name Role Phone Unavailable Primary Care Provider Unavailabl e Encounter Details Date Type Department Care Team (Late st Contact Info) Description 02/22/2011 - 02/22/2011 11:59 PM CDT Hospital Encounter [facility] Valenzuela, Roxanna Morocho MD [address] [place] [address] Regional enteritis (CMS/HCC) (HCC) Social History Tobacco Use Types Packs/Day Years Used Date Smoking Tobacco: Never Assessed Sex and Gender Information Value Date Recorded Sex Assigned at Not on file Legal Sex Male 1:20 AM WOODEN BOX MAKER Gender Identity Not on file Sexual Orientation Not on file documented as of this encounter Plan of Treatment Upcoming Encounters Date Type Department Care Team (Late Contact Info) Description 05/22/2024 10:45 AM WOODEN BOX MAKER Hospital Encounter [facility] Endoscopy [address] [place] [address] Nikolay Boucher MD [address] [place] [address] 05/22/2024 10:45 AM WOODEN BOX MAKER - 05/22/2024 11:15 AM WOODEN BOX MAKER Surgery [facility] Endoscopy [address] [address] Nikolay Boucher MD [address] [place] [address] EGD Scheduled Procedures Name Priority Associated Diagnoses Date/Ti mn ESOPHAGOGASTRODUODENOSCOPY Crohn's disease of both small and large intestine with intestinal obstruction (HCC) 05/22/2024 10:45 AM WOODEN BOX MAKER documented as of this encounter Visit Diagnoses Diagnosis Regional enteritis (CMS/HCC) (HCC) Regional enteritis of unspecified site Crohn's disease of both small and large intestine with intestinal obstruction (HCC) documented in this encounter
--- OUTSIDE RECORDS SUMMARY | 2024-05-18 22:19 | XMS_ITS | Encounter Summary ---
Author Organization [facility] Healthcare Address [address] [place] [address] Care Team Providers Care Pharmacy Manager Name Role Phone Unavailable Primary Care Provider Unavailabl e Encounter Details Date Type Department Care Team (Late st Contact Info) Description 05/13/2008 1:17 PM GUM COOK - 05/13/2008 11:59 PM GUM COOK Hospital Encounter [facility] Social History Tobacco Use Types Packs/Day Years Used Date Smoking Tobacco: Never Assessed Sex and Gender Information Value Date Recorded Sex Assigned at Not on file Legal Sex Male 1:20 AM GUM COOK Gender Identity Not on file Sexual Orientation Not on file documented as of this encounter Plan of Treatment Upcoming Encounters Date Type Department Care Team (Late st Contact Info) Description 05/22/2024 10:45 AM GUM COOK Hospital Encounter [facility] Endoscopy [address] [place] [address] Nikolay Boucher MD [address] [place] [address] 05/22/2024 10:45 AM GUM COOK - 05/22/2024 11:15 AM GUM COOK Surgery [facility] Endoscopy [address] [place] [address] Nikolay Boucher MD [address] [place] [address] EGD Scheduled Procedures Name Priority Associated Diagnoses Date/Ti me ESOPHAGOGASTRODUODENOSCOPY Crohn's disease of both small and large intestine with intestinal obstruction (HCC) 05/22/2024 10:45 AM GUM COOK documented as of this encounter Visit Diagnoses Not on filedocumented in this encounter
--- OUTSIDE RECORDS SUMMARY | 2024-05-18 22:19 | XMS_ITS | Encounter Summary ---
Author Organization [facility] Facility Care Team Providers Care Pharmacoepidemiologist Name Role Phone Unavailable Primary Care Provider Unavailabl e Encounter Details Date Type Department Care Team (Late st Contact Info) Description 12/13/2011 - 12/13/2011 11:59 PM CDT Hospital Encounter [facility] EILEEN Valenzuela, Roxanna Morocho MD [address] [place] [address] Regional enteritis (CMS/HCC) (HCC) Social History Tobacco Use Types Packs/Day Years Used Date Smoking Tobacco: Never Assessed Sex and Gender Information Value Date Recorded Sex Assigned at Not on file Legal Sex Male 1:20 AM EXTRA GANG SUPERVISOR Gender Identity Not on file Sexual Orientation Not on file documented as of this encounter Plan of Treatment Upcoming Encounters Date Type Department Care Team (Late Contact Info) Description 05/22/2024 10:45 AM EXTRA GANG SUPERVISOR Hospital Encounter [facility] Endoscopy [address] [place] [address] Nikolay Boucher MD [address] [place] [address] 05/22/2024 10:45 AM EXTRA GANG SUPERVISOR - 05/22/2024 11:15 AM EXTRA GANG SUPERVISOR Surgery [facility] Endoscopy [address] [place] [address] Nikolay Boucher MD [address] [place] [address] EGD Scheduled Procedures Name Priority Associated Diagnoses Date/Ti ga ESOPHAGOGASTRODUODENOSCOPY Crohn's disease of both small and large intestine with intestinal obstruction (HCC) 05/22/2024 10:45 AM EXTRA GANG SUPERVISOR documented as of this encounter Visit Diagnoses Diagnosis Regional enteritis (CMS/HCC) (HCC) Regional enteritis of unspecified site Crohn's disease of both small and large intestine with intestinal obstruction (HCC) documented in this encounter
--- OUTSIDE RECORDS SUMMARY | 2024-05-18 22:19 | XMS_ITS | Encounter Summary ---
Author Organization [facility] Healthcare Address [address] [place] [address] Care Team Providers Care Wastewater Treatment Plant Chemist Name Role Phone Unavailable Primary Care Provider Unavailabl e Encounter Details Date Type Department Care Team (Late st Contact Info) Description 08/09/2009 5:00 PM CDT - 08/09/2009 11:59 PM CDT Hospital Encounter [facility] Social History Tobacco Use Types Packs/Day Years Used Date Smoking Tobacco: Never Assessed Sex and Gender Information Value Date Recorded Sex Assigned at Not on file Legal Sex Male 1:20 AM PLATING STRIPPER Gender Identity Not on file Sexual Orientation Not on file documented as of this encounter Plan of Treatment Upcoming Encounters Date Type Department Care Team (Late st Contact Info) Description 05/22/2024 10:45 AM PLATING STRIPPER Hospital Encounter [facility] Endoscopy [address] [place] [address] Nikolay Boucher MD [address] [place] [address] 05/22/2024 10:45 AM PLATING STRIPPER - 05/22/2024 11:15 AM PLATING STRIPPER Surgery [facility] Endoscopy [address] [place] [address] Nikolay Boucher MD [address] [place] [address] EGD Scheduled Procedures Name Priority Associated Diagnoses Date/Ti me ESOPHAGOGASTRODUODENOSCOPY Crohn's disease of both small and large intestine with intestinal obstruction (HCC) 05/22/2024 10:45 AM PLATING STRIPPER documented as of this encounter Visit Diagnoses Not on filedocumented in this encounter
--- OUTSIDE RECORDS SUMMARY | 2024-05-18 22:19 | XMS_ITS | Encounter Summary ---
Author Organization [facility] Facility Care Team Providers Care Screening Tech Name Role Phone Unavailable Primary Care Provider Unavailabl e Encounter Details Date Type Department Care Team (Late st Contact Info) Description 11/22/2009 - 11/22/2009 11:59 PM CDT Hospital Encounter [facility] EILEEN Valenzuela, Roxanna Morocho MD [address] [place] [address] Regional enteritis (CMS/HCC) (HCC) Social History Tobacco Use Types Packs/Day Years Used Date Smoking Tobacco: Never Assessed Sex and Gender Information Value Date Recorded Sex Assigned at Not on file Legal Sex Male 1:20 AM HEALTH EQUIPMENT SERVICER Gender Identity Not on file Sexual Orientation Not on file documented as of this encounter Plan of Treatment Upcoming Encounters Date Type Department Care Team (Late Contact Info) Description 05/22/2024 10:45 AM HEALTH EQUIPMENT SERVICER Hospital Encounter [facility] Endoscopy [address] [place] [address] Nikolay Boucher MD [address] [place] [address] 05/22/2024 10:45 AM HEALTH EQUIPMENT SERVICER - 05/22/2024 11:15 AM HEALTH EQUIPMENT SERVICER Surgery [facility] Endoscopy [address] [address] Nikolay Boucher MD [address] [place] [address] EGD Scheduled Procedures Name Priority Associated Diagnoses Date/Ti ca ESOPHAGOGASTRODUODENOSCOPY Crohn's disease of both small and large intestine with intestinal obstruction (HCC) 05/22/2024 10:45 AM HEALTH EQUIPMENT SERVICER documented as of this encounter Visit Diagnoses Diagnosis Regional enteritis (CMS/HCC) (HCC) Regional enteritis of unspecified site Crohn's disease of both small and large intestine with intestinal obstruction (HCC) documented in this encounter
--- OUTSIDE RECORDS SUMMARY | 2024-05-18 22:19 | XMS_ITS | Encounter Summary ---
Author Organization [facility] Facility Care Team Providers Care Account Review Specialist Name Role Phone Unavailable Primary Care Provider Unavailabl e Encounter Details Date Type Department Care Team (Late st Contact Info) Description 03/24/2010 8:07 AM CDT - 03/24/2010 4:00 PM CDT Hospital Encounter [facility] Roxanna Irene MD [address] [place] [address] Diarrhea; Arthropathy; Regional enteritis (CMS/HCC) (HCC); Essential hypertension; Anemia; Intestinal bypass or anastomosis status Social History Tobacco Use Types Packs/Day Years Used Date Smoking Tobacco: Never Assessed Sex and Gender Information Value Date Recorded Sex Assigned at Not on file Legal Sex Male 1:20 AM GUN TESTER Gender Identity Not on file Sexual Orientation Not on file documented as of this encounter Plan of Treatment Upcoming Encounters Date Type Department Care Team (Late st Contact Info) Description 05/22/2024 10:45 AM GUN TESTER Hospital Encounter [facility] Endoscopy [address] [address] Nikolay Boucher MD [address] [place] [address] 05/22/2024 10:45 AM GUN TESTER - 05/22/2024 11:15 AM GUN TESTER Surgery [facility] Endoscopy [address] [place] [address] Nikolay Boucher MD [address] [place] [address] EGD Scheduled Procedures Name Priority Associated Diagnoses Date/Ti me ESOPHAGOGASTRODUODENOSCOPY Crohn's disease of both small and large intestine with intestinal obstruction (HCC) 05/22/2024 10:45 AM GUN TESTER documented as of this encounter Visit Diagnoses Diagnosis Diarrhea Arthropathy Unspecified arthropathy, site unspecified Regional enteritis (CMS/HCC) (HCC) Regional enteritis of unspecified site Essential hypertension Unspecified essential hypertension Anemia Unspecified anemia Intestinal bypass or anastomosis status Crohn's disease of both small and large intestine with intestinal obstruction (HCC) documented in this encounter
--- OUTSIDE RECORDS SUMMARY | 2024-05-18 22:19 | XMS_ITS | Encounter Summary ---
Author Organization [facility] Facility Care Team Providers Care Salesperson Surgical Appliances Name Role Phone Unavailable Primary Care Provider Unavailabl e Encounter Details Date Type Department Care Team (Late Contact Info) Description 08/16/2010 - 08/16/2010 11:59 PM CDT Hospital Encounter [facility] EILEEN Valenzuela, Roxanna Morocho MD [address] [place] [address] Other specified disorders of intestines; Other diseases of lung Social History Tobacco Use Types Packs/Day Years Used Date Smoking Tobacco: Never Assessed Sex and Gender Information Value Date Recorded Sex Assigned at Not on file Legal Sex Male 1:20 AM OFFAL ROLLER Gender Identity Not on file Sexual Orientation Not on file documented as of this encounter Plan of Treatment Upcoming Encounters Date Type Department Care Team (Late Contact Info) Description 05/22/2024 10:45 AM OFFAL ROLLER Hospital Encounter [facility] Endoscopy [address] [place] [address] Nikolay Boucher MD [address] [place] [address] 05/22/2024 10:45 AM OFFAL ROLLER - 05/22/2024 11:15 AM OFFAL ROLLER Surgery [facility] Endoscopy [address] [place] [address] Nikolay Boucher MD [address] [place] [address] EGD Scheduled Procedures Name Priority Associated Diagnoses Date/Ti wy ESOPHAGOGASTRODUODENOSCOPY Crohn's disease of both small and large intestine with intestinal obstruction (HCC) 05/22/2024 10:45 AM OFFAL ROLLER documented as of this encounter Visit Diagnoses Diagnosis Other specified disorders of intestines Other diseases of lung Crohn's disease of both small and large intestine with intestinal obstruction (HCC) documented in this encounter
--- OUTSIDE RECORDS SUMMARY | 2024-05-18 22:19 | XMS_ITS | Encounter Summary ---
Author Organization [facility] Facility Care Team Providers Care Back Roll Lathe Operator Name Role Phone Unavailable Primary Care Provider Unavailabl e Encounter Details Date Type Department Care Team (Late st Contact Info) Description 04/25/2012 3:35 PM CLOTH BLEACHING RANGE OPERATOR CHIEF - 04/25/2012 4:00 PM [facility] Hospital Encounter [facility] Jacek Steiner Ventral hernia; Other specified pre-operative examination Social History Tobacco Use Types Packs/Day Years Used Date Smoking Tobacco: Never Assessed Sex and Gender Information Value Date Recorded Sex Assigned at Not on file Legal Sex Male 1:20 AM CLOTH BLEACHING RANGE OPERATOR CHIEF Gender Identity Not on file Sexual Orientation Not on file documented as of this encounter Plan of Treatment Upcoming Encounters Date Type Department Care Team (Late st Contact Info) Description 05/22/2024 10:45 AM CLOTH BLEACHING RANGE OPERATOR CHIEF Hospital Encounter [facility] [place] [address] [place] [address] Nikolay Boucher MD [address] [place] [address] 05/22/2024 10:45 AM CLOTH BLEACHING RANGE OPERATOR CHIEF - 05/22/2024 11:15 AM CLOTH BLEACHING RANGE OPERATOR CHIEF Surgery [facility] Endoscopy [address] [place] [address] Nikolay Boucher MD [address] [place] [address] EGD Scheduled Procedures Name Priority Associated Diagnoses Date/Ti dc ESOPHAGOGASTRODUODENOSCOPY Crohn's disease of both small and large intestine with intestinal obstruction (HCC) 05/22/2024 10:45 AM CLOTH BLEACHING RANGE OPERATOR CHIEF documented as of this encounter Visit Diagnoses Diagnosis Ventral hernia Unspecified ventral hernia without mention of obstruction or gangrene Other specified pre-operative examination Crohn's disease of both small and large intestine with intestinal obstruction (HCC) documented in this encounter
--- OUTSIDE RECORDS SUMMARY | 2024-05-18 22:19 | XMS_ITS | Encounter Summary ---
Author Organization [facility] Facility Care Team Providers Care Automotive Refinisher Name Role Phone Unavailable Primary Care Provider Unavailabl e Encounter Details Date Type Department Care Team (Late st Contact Info) Description 08/22/2009 3:14 PM CDT - 08/23/2009 4:13 PM CDT Hospital Encounter [facility]CON[facility] Johanna José, DO [address] [place] [address] Kyle Avery, DO [address] [facility] [address] [address] Regional enteritis of small intestine (CMS/HCC) (HCC); Essential hypertension; Iron deficiency anemia; Nausea with vomiting; Pain in joint; Other B-complex deficiencies; Generalized hyperhidrosis Social History Tobacco Use Types Packs/Day Years Used Date Smoking Tobacco: Never Assessed Sex and Gender Information Value Date Recorded Sex Assigned at Not on file Legal Sex Male 1:20 AM REHABILITATION THERAPIST Gender Identity Not on file Sexual Orientation Not on file documented as of this encounter Plan of Treatment Upcoming Encounters Date Type Department Care Team (Late st Contact Info) Description 05/22/2024 10:45 AM REHABILITATION THERAPIST Hospital Encounter [facility] Endoscopy [address] [place] [address] Nikolay Boucher MD [address] [place] [address] 05/22/2024 10:45 AM REHABILITATION THERAPIST - 05/22/2024 11:15 AM REHABILITATION THERAPIST Surgery [facility] Endoscopy [address] [address] Nikolay Boucher MD [address] [place] [address] EGD Scheduled Procedures Name Priority Associated Diagnoses Date/Ti me ESOPHAGOGASTRODUODENOSCOPY Crohn's disease of both small and large intestine with intestinal obstruction (HCC) 05/22/2024 10:45 AM REHABILITATION THERAPIST documented as of this encounter Visit Diagnoses Diagnosis Regional enteritis of small intestine (CMS/HCC) (HCC) Regional enteritis of small intestine Essential hypertension Unspecified essential hypertension Iron deficiency anemia Unspecified iron deficiency anemia Nausea with vomiting Pain in joint Other B-complex deficiencies Generalized hyperhidrosis Crohn's disease of both small and large intestine with intestinal obstruction (HCC) documented in this encounter
--- OUTSIDE RECORDS SUMMARY | 2024-05-18 22:19 | XMS_ITS | Encounter Summary ---
Author Organization [facility] Healthcare Address [address] [place] [address] Care Team Providers Care Stamp Redemption Clerk Name Role Phone Unavailable Primary Care Provider Unavailabl e Encounter Details Date Type Department Care Team (Late st Contact Info) Description 08/23/2009 8:11 PM CDT - 08/23/2009 11:59 PM CDT Hospital Encounter [facility] Social History Tobacco Use Types Packs/Day Years Used Date Smoking Tobacco: Never Assessed Sex and Gender Information Value Date Recorded Sex Assigned at Not on file Legal Sex Male 1:[address] Gender Identity Not on file Sexual Orientation Not on file documented as of this encounter Plan of Treatment Upcoming Encounters Date Type Department Care Team (Late st Contact Info) Description 05/22/2024 10:[address] Hospital Encounter [facility] End[address] [place] [address] Nikolay Boucher MD [address] [place] [address] 05/22/2024 10:[address] - 05/22/2024 11:[address] Surgery [facility] Endoscopy [address] [place] [address] Nikolay Boucher MD [address] [place] [address] EGD Scheduled Procedures Name Priority Associated Diagnoses Date/Ti me ESOPHAGOGASTRODUODENOSCOPY Crohn's disease of both small and large intestine with intestinal obstruction (HCC) 05/22/2024 10:[address] documented as of this encounter Visit Diagnoses Not on filedocumented in this encounter
--- OUTSIDE RECORDS SUMMARY | 2024-05-18 22:19 | XMS_ITS | Encounter Summary ---
Author Organization [facility] Facility Care Team Providers Care Bun Machine Operator Name Role Phone Unavailable Primary Care Provider Unavailabl e Encounter Details Date Type Department Care Team (Latest Contact Info) Description 09/10/2011 11:06 AM CDT Hospital Encounter [facility] TalatKimber J Myalgia and myositis; Pain in joint Social History Tobacco Use Types Packs/Day Years Used Date Smoking Tobacco: Never Assessed Sex and Gender Information Value Date Recorded Sex Assigned at Not on file Legal Sex Male 1:20 AM DIET TECHNICIAN REGISTERED Gender Identity Not on file Sexual Orientation Not on file documented as of this encounter Plan of Treatment Upcoming Encounters Date Type Department Care Team (Late st Contact Info) Description 05/22/2024 10:45 AM DIET TECHNICIAN REGISTERED Hospital Encounter [facility] Endoscopy [address] [place] [address] Nikolay Boucher MD [address] [place] [address] 05/22/2024 10:45 AM DIET TECHNICIAN REGISTERED - 05/22/2024 11:15 AM DIET TECHNICIAN REGISTERED Surgery [facility] Endoscopy [address] [place] [address] Nikolay Boucher MD [address] [place] [address] EGD Scheduled Procedures Name Priority Associated Diagnoses Date/Ti me ESOPHAGOGASTRODUODENOSCOPY Crohn's disease of both small and large intestine with intestinal obstruction (HCC) 05/22/2024 10:45 AM DIET TECHNICIAN REGISTERED documented as of this encounter Visit Diagnoses Diagnosis Myalgia and myositis Unspecified myalgia and myositis Pain in joint Crohn's disease of both small and large intestine with intestinal obstruction (HCC) documented in this encounter
--- OUTSIDE RECORDS SUMMARY | 2024-05-18 22:19 | XMS_ITS | Encounter Summary ---
Author Organization [facility] Healthcare Address [address] [place] [address] Care Team Providers Care Student Accounts Manager Name Role Phone Unavailable Primary Care Provider Unavailabl e Encounter Details Date Type Department Care Team (Late st Contact Info) Description 02/06/2008 10:08 PM CDT - 02/06/2008 11:59 PM CDT Hospital Encounter [facility] Social History Tobacco Use Types Packs/Day Years Used Date Smoking Tobacco: Never Assessed Sex and Gender Information Value Date Recorded Sex Assigned at Not on file Legal Sex Male 1:20 AM METAL BUFFER Gender Identity Not on file Sexual Orientation Not on file documented as of this encounter Plan of Treatment Upcoming Encounters Date Type Department Care Team (Late st Contact Info) Description 05/22/2024 10:45 AM METAL BUFFER Hospital Encounter [facility] Endoscopy [address] [place] [address] Nikolay Boucher MD [address] [place] [address] 05/22/2024 10:45 AM METAL BUFFER - 05/22/2024 11:15 AM METAL BUFFER Surgery [facility] Endoscopy [address] [place] [address] Nikolay Boucher MD [address] [place] [address] EGD Scheduled Procedures Name Priority Associated Diagnoses Date/Ti me ESOPHAGOGASTRODUODENOSCOPY Crohn's disease of both small and large intestine with intestinal obstruction (HCC) 05/22/2024 10:45 AM METAL BUFFER documented as of this encounter Visit Diagnoses Not on filedocumented in this encounter
--- OUTSIDE RECORDS SUMMARY | 2024-05-18 22:19 | XMS_ITS | Encounter Summary ---
Author Organization [facility] Healthcare Address [address] [place] [address] Care Team Providers Care Administration Physician Name Role Phone Unavailable Primary Care Provider Unavailabl e Encounter Details Date Type Department Care Team (Late st Contact Info) Description 01/20/2010 2:18 PM CDT - 01/20/2010 11:59 PM CDT Hospital Encounter [facility] Social History Tobacco Use Types Packs/Day Years Used Date Smoking Tobacco: Never Assessed Sex and Gender Information Value Date Recorded Sex Assigned at Not on file Legal Sex Male 1:20 AM DIRECTOR DAY CARE CENTER Gender Identity Not on file Sexual Orientation Not on file documented as of this encounter Plan of Treatment Upcoming Encounters Date Type Department Care Team (Late st Contact Info) Description 05/22/2024 10:45 AM DIRECTOR DAY CARE CENTER Hospital Encounter [facility] Endoscopy [address] [place] [address] Nikolay Boucher MD [address] [place] [address] 05/22/2024 10:45 AM DIRECTOR DAY CARE CENTER - 05/22/2024 11:15 AM DIRECTOR DAY CARE CENTER Surgery [facility] Endoscopy [address] [place] [address] Nikolay Boucher MD [address] [place] [address] EGD Scheduled Procedures Name Priority Associated Diagnoses Date/Ti me ESOPHAGOGASTRODUODENOSCOPY Crohn's disease of both small and large intestine with intestinal obstruction (HCC) 05/22/2024 10:45 AM DIRECTOR DAY CARE CENTER documented as of this encounter Visit Diagnoses Not on filedocumented in this encounter
--- OUTSIDE RECORDS SUMMARY | 2024-05-18 22:19 | XMS_ITS | Encounter Summary ---
Author Organization [facility] Healthcare Address [address] [place] [address] Care Team Providers Care Pay Per Click Strategist Name Role Phone Unavailable Primary Care Provider Unavailabl e Encounter Details Date Type Department Care Team (Late st Contact Info) Description 07/01/2007 8:06 PM MULTIFOCAL BUTTON INSPECTOR - 07/01/2007 11:59 PM MULTIFOCAL BUTTON INSPECTOR Hospital Encounter [facility] Social History Tobacco Use Types Packs/Day Years Used Date Smoking Tobacco: Never Assessed Sex and Gender Information Value Date Recorded Sex Assigned at Not on file Legal Sex Male 1:20 AM MULTIFOCAL BUTTON INSPECTOR Gender Identity Not on file Sexual Orientation Not on file documented as of this encounter Plan of Treatment Upcoming Encounters Date Type Department Care Team (Late st Contact Info) Description 05/22/2024 10:45 AM MULTIFOCAL BUTTON INSPECTOR Hospital Encounter [facility] Endoscopy [address] [place] [address] Nikolay Boucher MD [address] [place] [address] 05/22/2024 10:45 AM MULTIFOCAL BUTTON INSPECTOR - 05/22/2024 11:15 AM MULTIFOCAL BUTTON INSPECTOR Surgery [facility] Endoscopy [address] [place] [address] Nikolay Boucher MD [address] [place] [address] EGD Scheduled Procedures Name Priority Associated Diagnoses Date/Ti me ESOPHAGOGASTRODUODENOSCOPY Crohn's disease of both small and large intestine with intestinal obstruction (HCC) 05/22/2024 10:45 AM MULTIFOCAL BUTTON INSPECTOR documented as of this encounter Visit Diagnoses Not on filedocumented in this encounter
--- OUTSIDE RECORDS SUMMARY | 2024-05-18 22:19 | XMS_ITS | Encounter Summary ---
Author Organization [facility] Care Team Providers Care Director Of Spa And Guest Experience Name Role Phone Unavailable Primary Care Provider Unavailabl e Encounter Details Date Type Department Care Team (Late st Contact Info) Description 11/24/2009 2:34 PM CDT - 11/24/2009 4:00 PM CDT Hospital Encounter [facility] CLINCONV Other specified pre-operative examination; Regional enteritis (CMS/HCC) (HCC); Essential hypertension; Esophageal reflux Social History Tobacco Use Types Packs/Day Years Used Date Smoking Tobacco: Never Assessed Sex and Gender Information Value Date Recorded Sex Assigned at Not on file Legal Sex Male 1:20 AM CONE WORKER Gender Identity Not on file Sexual Orientation Not on file documented as of this encounter Plan of Treatment Upcoming Encounters Date Type Department Care Team (Late st Contact Info) Description 05/22/2024 10:45 AM [facility] Hospital Encounter [facility] Endoscopy [address] [place] [address] Nikolay Boucher MD [address] [place] [address] 05/22/2024 10:45 AM CONE WORKER - 05/22/2024 11:15 AM CONE WORKER Surgery [facility] Endoscopy [address] [place] [place] [address] Nikolay Boucher MD [address] [place] [address] EGD Scheduled Procedures Name Priority Associated Diagnoses Date/Ti me ESOPHAGOGASTRODUODENOSCOPY Crohn's disease of both small and large intestine with intestinal obstruction (HCC) 05/22/2024 10:45 AM CONE WORKER documented as of this encounter Visit Diagnoses Diagnosis Other specified pre-operative examination Regional enteritis (CMS/HCC) (HCC) Regional enteritis of unspecified site Essential hypertension Unspecified essential hypertension Esophageal reflux Crohn's disease of both small and large intestine with intestinal obstruction (HCC) documented in this encounter
--- OUTSIDE RECORDS SUMMARY | 2024-05-18 22:19 | XMS_ITS | Encounter Summary ---
Author Organization [facility] Facility Care Team Providers Care Employment Legal Assistant Name Role Phone Unavailable Primary Care Provider Unavailabl e Encounter Details Date Type Department Care Team (Latest Contact Info) Description 11/18/2009 8:24 AM CDT - 11/18/2009 2:21 PM CDT Hospital Encounter [facility] CLINCONV Tanner Martell MD [address] [place] [address] Nausea with vomiting; Regional enteritis (CMS/HCC) (HCC); Constipation; Anorexia; Essential hypertension Social History Tobacco Use Types Packs/Day Years Used Date Smoking Tobacco: Never Assessed Sex and Gender Information Value Date Recorded Sex Assigned at Not on file Legal Sex Male 1:20 AM CERTIFIED PERSONAL FINANCE COUNSELOR Gender Identity Not on file Sexual Orientation Not on file documented as of this encounter Plan of Treatment Upcoming Encounters Date Type Department Care Team (Late st Contact Info) Description 05/22/2024 10:45 AM CERTIFIED PERSONAL FINANCE COUNSELOR Hospital Encounter [facility] Endoscopy [address] [place] [address] Nikolay Boucher MD [address] [place] [address] 05/22/2024 10:45 AM CERTIFIED PERSONAL FINANCE COUNSELOR - 05/22/2024 11:15 AM CERTIFIED PERSONAL FINANCE COUNSELOR Surgery [facility] Endoscopy [address] [place] [address] Nikolay Boucher MD [address] [place] [address] EGD Scheduled Procedures Name Priority Associated Diagnoses Date/Ti me ESOPHAGOGASTRODUODENOSCOPY Crohn's disease of both small and large intestine with intestinal obstruction (HCC) 05/22/2024 10:45 AM CERTIFIED PERSONAL FINANCE COUNSELOR documented as of this encounter Visit Diagnoses Diagnosis Nausea with vomiting Regional enteritis (CMS/HCC) (HCC) Regional enteritis of unspecified site Constipation Unspecified constipation Anorexia Essential hypertension Unspecified essential hypertension Crohn's disease of both small and large intestine with intestinal obstruction (HCC) documented in this encounter
--- OUTSIDE RECORDS SUMMARY | 2024-05-18 22:19 | XMS_ITS | Encounter Summary ---
Author Organization [facility] Facility Care Team Providers Care Spud Driller Name Role Phone Unavailable Primary Care Provider Unavailabl e Encounter Details Date Type Department Care Team (Late st Contact Info) Description 05/09/2012 11:37 AM TOWEL ROLLING MACHINE OPERATOR - 05/09/2012 4:00 PM [facility] Hospital Encounter [facility] CLINCONV Jacek Steiner Incisional hernia; Regional enteritis (CMS/HCC) (HCC); Acquired absence of intestine Social History Tobacco Use Types Packs/Day Years Used Date Smoking Tobacco: Never Assessed Sex and Gender Information Value Date Recorded Sex Assigned at Not on file Legal Sex Male 1:20 AM TOWEL ROLLING MACHINE OPERATOR Gender Identity Not on file Sexual Orientation Not on file documented as of this encounter Plan of Treatment Upcoming Encounters Date Type Department Care Team (Late st Contact Info) Description 05/22/2024 10:45 AM [facility] Hospital Encounter [facility] Endoscopy [address] [place] [address] Nikolay Boucher MD [address] [place] [address] 05/22/2024 10:45 AM TOWEL ROLLING MACHINE OPERATOR - 05/22/2024 11:15 AM TOWEL ROLLING MACHINE OPERATOR Surgery [facility] Endoscopy [address] [place] [place] [address] Nikolay Boucher MD [address] [place] [address] EGD Scheduled Procedures Name Priority Associated Diagnoses Date/Ti ct ESOPHAGOGASTRODUODENOSCOPY Crohn's disease of both small and large intestine with intestinal obstruction (HCC) 05/22/2024 10:45 AM TOWEL ROLLING MACHINE OPERATOR documented as of this encounter Visit Diagnoses Diagnosis Incisional hernia Incisional hernia without mention of obstruction or gangrene Regional enteritis (CMS/HCC) (HCC) Regional enteritis of unspecified site Acquired absence of intestine Acquired absence of intestine (large) (small) Crohn's disease of both small and large intestine with intestinal obstruction (HCC) documented in this encounter
--- OUTSIDE RECORDS SUMMARY | 2024-05-18 22:19 | XMS_ITS | Encounter Summary ---
Author Organization [facility] Healthcare Address [address] [place] [address] Care Team Providers Care Book Store Associate Name Role Phone Unavailable Primary Care Provider Unavailabl e Encounter Details Date Type Department Care Team (Late st Contact Info) Description 02/11/2007 7:58 PM CDT - 02/11/2007 11:59 PM CDT Hospital Encounter [facility] Social History Tobacco Use Types Packs/Day Years Used Date Smoking Tobacco: Never Assessed Sex and Gender Information Value Date Recorded Sex Assigned at Not on file Legal Sex Male 1:20 AM TIMBER ESTIMATOR Gender Identity Not on file Sexual Orientation Not on file documented as of this encounter Plan of Treatment Upcoming Encounters Date Type Department Care Team (Late st Contact Info) Description 05/22/2024 10:45 AM TIMBER ESTIMATOR Hospital Encounter [facility] Endoscopy [address] [place] [address] Nikolay Boucher MD [address] [place] [address] 05/22/2024 10:45 AM TIMBER ESTIMATOR - 05/22/2024 11:15 AM TIMBER ESTIMATOR Surgery [facility] Endoscopy [address] [place] [address] Nikolay Boucher MD [address] [place] [address] EGD Scheduled Procedures Name Priority Associated Diagnoses Date/Ti me ESOPHAGOGASTRODUODENOSCOPY Crohn's disease of both small and large intestine with intestinal obstruction (HCC) 05/22/2024 10:45 AM TIMBER ESTIMATOR documented as of this encounter Visit Diagnoses Not on filedocumented in this encounter
--- OUTSIDE RECORDS SUMMARY | 2024-05-18 22:19 | XMS_ITS | Encounter Summary ---
Author Organization [facility] Healthcare Address [address] [place] [address] Care Team Providers Care Setup Operator Name Role Phone Unavailable Primary Care Provider Unavailabl e Encounter Details Date Type Department Care Team (Late st Contact Info) Description 10/31/2007 10:46 AM CDT - 10/31/2007 11:59 PM CDT Hospital Encounter [facility] Social History Tobacco Use Types Packs/Day Years Used Date Smoking Tobacco: Never Assessed Sex and Gender Information Value Date Recorded Sex Assigned at Not on file Legal Sex Male 1:20 AM ASSISTANT PRODUCT MANAGER Gender Identity Not on file Sexual Orientation Not on file documented as of this encounter Plan of Treatment Upcoming Encounters Date Type Department Care Team (Late st Contact Info) Description 05/22/2024 10:45 AM ASSISTANT PRODUCT MANAGER Hospital Encounter [facility] Endoscopy [address] [place] [address] Nikolay Boucher MD [address] [place] [address] 05/22/2024 10:45 AM ASSISTANT PRODUCT MANAGER - 05/22/2024 11:15 AM ASSISTANT PRODUCT MANAGER Surgery [facility] Endoscopy [address] [place] [address] Nikolay Boucher MD [address] [place] [address] EGD Scheduled Procedures Name Priority Associated Diagnoses Date/Ti me ESOPHAGOGASTRODUODENOSCOPY Crohn's disease of both small and large intestine with intestinal obstruction (HCC) 05/22/2024 10:45 AM ASSISTANT PRODUCT MANAGER documented as of this encounter Visit Diagnoses Not on filedocumented in this encounter
--- OUTSIDE RECORDS SUMMARY | 2024-05-18 22:19 | XMS_ITS | Encounter Summary ---
Author Organization [facility] Healthcare Address [address] [place] [address] Care Team Providers Care Plant Operator Name Role Phone Unavailable Primary Care Provider Unavailabl e Encounter Details Date Type Department Care Team (Late st Contact Info) Description 08/28/2006 10:00 PM CDT - 08/28/2006 11:59 PM CDT Hospital Encounter [facility] Social History Tobacco Use Types Packs/Day Years Used Date Smoking Tobacco: Never Assessed Sex and Gender Information Value Date Recorded Sex Assigned at Not on file Legal Sex Male 1:20 AM MAINTENANCE TEAM MEMBER Gender Identity Not on file Sexual Orientation Not on file documented as of this encounter Plan of Treatment Upcoming Encounters Date Type Department Care Team (Late st Contact Info) Description 05/22/2024 10:45 AM MAINTENANCE TEAM MEMBER Hospital Encounter [facility] Endoscopy [address] [place] [address] Nikolay Boucher MD [address] [place] [address] 05/22/2024 10:45 AM MAINTENANCE TEAM MEMBER - 05/22/2024 11:15 AM MAINTENANCE TEAM MEMBER Surgery [facility] Endoscopy [address] [place] [address] Nikolay Boucher MD [address] [place] [address] EGD Scheduled Procedures Name Priority Associated Diagnoses Date/Ti me ESOPHAGOGASTRODUODENOSCOPY Crohn's disease of both small and large intestine with intestinal obstruction (HCC) 05/22/2024 10:45 AM MAINTENANCE TEAM MEMBER documented as of this encounter Visit Diagnoses Not on filedocumented in this encounter
--- OUTSIDE RECORDS SUMMARY | 2024-05-18 22:19 | XMS_ITS | Encounter Summary ---
Author Organization [facility] Healthcare Address [address] [place] [address] Care Team Providers Care Apprentice Cook Name Role Phone Unavailable Primary Care Provider Unavailabl e Encounter Details Date Type Department Care Team (Late st Contact Info) Description 01/26/2009 9:49 PM CDT - 01/26/2009 11:59 PM CDT Hospital Encounter [facility] Social History Tobacco Use Types Packs/Day Years Used Date Smoking Tobacco: Never Assessed Sex and Gender Information Value Date Recorded Sex Assigned at Not on file Legal Sex Male 1:20 AM WASTEWATER TREATMENT SUPERVISOR Gender Identity Not on file Sexual Orientation Not on file documented as of this encounter Plan of Treatment Upcoming Encounters Date Type Department Care Team (Late st Contact Info) Description 05/22/2024 10:45 AM WASTEWATER TREATMENT SUPERVISOR Hospital Encounter [facility] Endoscopy [address] [place] [address] Nikolay Boucher MD [address] [place] [address] 05/22/2024 10:45 AM WASTEWATER TREATMENT SUPERVISOR - 05/22/2024 11:15 AM WASTEWATER TREATMENT SUPERVISOR Surgery [facility] Endoscopy [address] [place] [address] Nikolay Boucher MD [address] [place] [address] EGD Scheduled Procedures Name Priority Associated Diagnoses Date/Ti me ESOPHAGOGASTRODUODENOSCOPY Crohn's disease of both small and large intestine with intestinal obstruction (HCC) 05/22/2024 10:45 AM WASTEWATER TREATMENT SUPERVISOR documented as of this encounter Visit Diagnoses Not on filedocumented in this encounter
--- OUTSIDE RECORDS SUMMARY | 2024-05-18 22:19 | XMS_ITS | Encounter Summary ---
Author Organization [facility] Healthcare Address [address] [place] [address] Care Team Providers Care Treating Machine Operator Name Role Phone Unavailable Primary Care Provider Unavailabl e Encounter Details Date Type Department Care Team (Late st Contact Info) Description 12/02/2006 2:55 PM CDT - 12/02/2006 11:59 PM CDT Hospital Encounter [facility] Social History Tobacco Use Types Packs/Day Years Used Date Smoking Tobacco: Never Assessed Sex and Gender Information Value Date Recorded Sex Assigned at Not on file Legal Sex Male 1:20 AM COMPUTING ARCHITECT Gender Identity Not on file Sexual Orientation Not on file documented as of this encounter Plan of Treatment Upcoming Encounters Date Type Department Care Team (Late st Contact Info) Description 05/22/2024 10:45 AM COMPUTING ARCHITECT Hospital Encounter [facility] Endoscopy [address] [place] [address] Nikolay Boucher MD [address] [place] [address] 05/22/2024 10:45 AM COMPUTING ARCHITECT - 05/22/2024 11:15 AM COMPUTING ARCHITECT Surgery [facility] Endoscopy [address] [place] [address] Nikolay Boucher MD [address] [place] [address] EGD Scheduled Procedures Name Priority Associated Diagnoses Date/Ti me ESOPHAGOGASTRODUODENOSCOPY Crohn's disease of both small and large intestine with intestinal obstruction (HCC) 05/22/2024 10:45 AM COMPUTING ARCHITECT documented as of this encounter Visit Diagnoses Not on filedocumented in this encounter
--- OUTSIDE RECORDS SUMMARY | 2024-05-18 22:19 | XMS_ITS | Encounter Summary ---
Author Organization [facility] Facility Care Team Providers Care Road Marker Name Role Phone Unavailable Primary Care Provider Unavailabl e Encounter Details Date Type Department Care Team (Late st Contact Info) Description 03/12/2012 - 03/12/2012 11:59 PM CDT Hospital Encounter [facility] Valenzuela, Roxanna Morocho MD [address] [place] [address] Regional enteritis (CMS/HCC) (HCC) Social History Tobacco Use Types Packs/Day Years Used Date Smoking Tobacco: Never Assessed Sex and Gender Information Value Date Recorded Sex Assigned at Not on file Legal Sex Male 1:20 AM HOTEL SERVICE MANAGER Gender Identity Not on file Sexual Orientation Not on file documented as of this encounter Plan of Treatment Upcoming Encounters Date Type Department Care Team (Late Contact Info) Description 05/22/2024 10:45 AM HOTEL SERVICE MANAGER Hospital Encounter [facility] [address] [place] [address] Nikolay Boucher MD [address] [place] [address] 05/22/2024 10:45 AM HOTEL SERVICE MANAGER - 05/22/2024 11:15 AM HOTEL SERVICE MANAGER Surgery [facility] Endoscopy [address] [place] [address] Nikolay Boucher MD [address] [place] [address] EGD Scheduled Procedures Name Priority Associated Diagnoses Date/Ti nm ESOPHAGOGASTRODUODENOSCOPY Crohn's disease of both small and large intestine with intestinal obstruction (HCC) 05/22/2024 10:45 AM HOTEL SERVICE MANAGER documented as of this encounter Visit Diagnoses Diagnosis Regional enteritis (CMS/HCC) (HCC) Regional enteritis of unspecified site Crohn's disease of both small and large intestine with intestinal obstruction (HCC) documented in this encounter
--- OUTSIDE RECORDS SUMMARY | 2024-05-18 22:19 | XMS_ITS | Encounter Summary ---
Author Organization [facility] Healthcare Address [address] [place] [address] Care Team Providers Care Resident In Diagnostic Radiology Name Role Phone Unavailable Primary Care Provider Unavailabl e Encounter Details Date Type Department Care Team (Late st Contact Info) Description 09/15/2008 7:47 PM CDT - 09/15/2008 11:59 PM CDT Hospital Encounter [facility] Social History Tobacco Use Types Packs/Day Years Used Date Smoking Tobacco: Never Assessed Sex and Gender Information Value Date Recorded Sex Assigned at Not on file Legal Sex Male 1:20 AM ASSOCIATE VETERINARIAN Gender Identity Not on file Sexual Orientation Not on file documented as of this encounter Plan of Treatment Upcoming Encounters Date Type Department Care Team (Late st Contact Info) Description 05/22/2024 10:45 AM ASSOCIATE VETERINARIAN Hospital Encounter [facility] Endoscopy [address] [place] [address] Nikolay Boucher MD [address] [place] [address] 05/22/2024 10:45 AM ASSOCIATE VETERINARIAN - 05/22/2024 11:15 AM ASSOCIATE VETERINARIAN Surgery [facility] Endoscopy [address] [place] [address] Nikolay Boucher MD [address] [place] [address] EGD Scheduled Procedures Name Priority Associated Diagnoses Date/Ti me ESOPHAGOGASTRODUODENOSCOPY Crohn's disease of both small and large intestine with intestinal obstruction (HCC) 05/22/2024 10:45 AM ASSOCIATE VETERINARIAN documented as of this encounter Visit Diagnoses Not on filedocumented in this encounter
--- OUTSIDE RECORDS SUMMARY | 2024-05-18 22:19 | XMS_ITS | Encounter Summary ---
Author Organization [facility] Facility Care Team Providers Care Case Management Specialist Name Role Phone Unavailable Primary Care Provider Unavailabl e Encounter Details Date Type Department Care Team (Late st Contact Info) Description 02/08/2012 8:17 AM CDT - 02/08/2012 4:00 PM T Hospital Encounter [facility] Roxanna Irene MD [address] [place] [address] Regional enteritis (CMS/HCC) (HCC); Other specified disorder of rectum and anus; Essential hypertension Social History Tobacco Use Types Packs/Day Years Used Date Smoking Tobacco: Never Assessed Sex and Gender Information Value Date Recorded Sex Assigned at Not on file Legal Sex Male 1:20 AM PROMPT CARE RN Gender Identity Not on file Sexual Orientation Not on file documented as of this encounter Plan of Treatment Upcoming Encounters Date Type Department Care Team (Late st Contact Info) Description 05/22/2024 10:45 AM PROMPT CARE RN Hospital Encounter [facility] Endoscopy [address] [place] [address] Nikolay Boucher MD [address] [place] [address] 05/22/2024 10:45 AM PROMPT CARE RN - 05/22/2024 11:15 AM PROMPT CARE RN Surgery [facility] Endoscopy [address] [place] [address] Nikolay Boucher MD [address] [place] [address] EGD Scheduled Procedures Name Priority Associated Diagnoses Date/Ti me ESOPHAGOGASTRODUODENOSCOPY Crohn's disease of both small and large intestine with intestinal obstruction (HCC) 05/22/2024 10:45 AM PROMPT CARE RN documented as of this encounter Visit Diagnoses Diagnosis Regional enteritis (CMS/HCC) (HCC) Regional enteritis of unspecified site Other specified disorder of rectum and anus Essential hypertension Unspecified essential hypertension Crohn's disease of both small and large intestine with intestinal obstruction (HCC) documented in this encounter
--- OUTSIDE RECORDS SUMMARY | 2024-05-18 22:19 | XMS_ITS | Encounter Summary ---
Author Organization [facility] Healthcare Address [address] [place] [address] Care Team Providers Care Financial Engineer Name Role Phone Unavailable Primary Care Provider Unavailabl e Encounter Details Date Type Department Care Team (Late st Contact Info) Description 11/04/2007 9:03 PM CDT - 11/04/2007 11:59 PM CDT Hospital Encounter [facility] Social History Tobacco Use Types Packs/Day Years Used Date Smoking Tobacco: Never Assessed Sex and Gender Information Value Date Recorded Sex Assigned at Not on file Legal Sex Male 1:20 AM GLASS VIAL BENDING CONVEYOR FEEDER Gender Identity Not on file Sexual Orientation Not on file documented as of this encounter Plan of Treatment Upcoming Encounters Date Type Department Care Team (Late st Contact Info) Description 05/22/2024 10:45 AM GLASS VIAL BENDING CONVEYOR FEEDER Hospital Encounter [facility] Endoscopy [address] [place] [address] Nikolay Boucher MD [address] [place] [address] 05/22/2024 10:45 AM GLASS VIAL BENDING CONVEYOR FEEDER - 05/22/2024 11:15 AM GLASS VIAL BENDING CONVEYOR FEEDER Surgery [facility] Endoscopy [address] [place] [address] Nikolay Boucher MD [address] [place] [address] EGD Scheduled Procedures Name Priority Associated Diagnoses Date/Ti me ESOPHAGOGASTRODUODENOSCOPY Crohn's disease of both small and large intestine with intestinal obstruction (HCC) 05/22/2024 10:45 AM GLASS VIAL BENDING CONVEYOR FEEDER documented as of this encounter Visit Diagnoses Not on filedocumented in this encounter
--- OUTSIDE RECORDS SUMMARY | 2024-05-18 22:19 | XMS_ITS | Encounter Summary ---
Author Organization [facility] Facility Care Team Providers Care Loftsman/Woman Name Role Phone Unavailable Primary Care Provider Unavailabl e Encounter Details Date Type Department Care Team (Late st Contact Info) Description 08/28/2011 - 08/28/2011 11:59 PM CDT Hospital Encounter [facility] Valenzuela, Roxanna Morocho MD [address] [place] [address] Regional enteritis (CMS/HCC) (HCC) Social History Tobacco Use Types Packs/Day Years Used Date Smoking Tobacco: Never Assessed Sex and Gender Information Value Date Recorded Sex Assigned at Not on file Legal Sex Male 1:20 AM SOW FARM BARN TECHNICIAN Gender Identity Not on file Sexual Orientation Not on file documented as of this encounter Plan of Treatment Upcoming Encounters Date Type Department Care Team (Late Contact Info) Description 05/22/2024 10:45 AM SOW FARM BARN TECHNICIAN Hospital Encounter [facility] Endoscopy [address] [place] [address] Nikolay Boucher MD [address] [place] [address] 05/22/2024 10:45 AM SOW FARM BARN TECHNICIAN - 05/22/2024 11:15 AM SOW FARM BARN TECHNICIAN Surgery [facility] Endoscopy [address] [place] [address] Nikolay Boucher MD [address] [place] [address] EGD Scheduled Procedures Name Priority Associated Diagnoses Date/Ti nd ESOPHAGOGASTRODUODENOSCOPY Crohn's disease of both small and large intestine with intestinal obstruction (HCC) 05/22/2024 10:45 AM SOW FARM BARN TECHNICIAN documented as of this encounter Visit Diagnoses Diagnosis Regional enteritis (CMS/HCC) (HCC) Regional enteritis of unspecified site Crohn's disease of both small and large intestine with intestinal obstruction (HCC) documented in this encounter
--- OUTSIDE RECORDS SUMMARY | 2024-05-18 22:19 | XMS_ITS | Encounter Summary ---
Author Organization [facility] Facility Care Team Providers Care Sql Manager Name Role Phone Unavailable Primary Care Provider Unavailabl e Encounter Details Date Type Department Care Team (Late st Contact Info) Description 11/25/2009 6:16 AM CDT - 11/29/2009 12:51 PM CDT Hospital Encounter [facility] enteritis of small intestine with large intestine (HCC); Anemia; Esophageal reflux Social History Tobacco Use Types Packs/Day Years Used Date Smoking Tobacco: Never Assessed Sex and Gender Information Value Date Recorded Sex Assigned at Not on file Legal Sex Male 1:20 AM LEAD SHIPPER Gender Identity Not on file Sexual Orientation Not on file documented as of this encounter Plan of Treatment Upcoming Encounters Date Type Department Care Team (Late st Contact Info) Description 05/22/2024 10:45 AM LEAD SHIPPER Hospital Encounter [facility] Endoscopy [id number] [place] [address] Nikolay Boucher MD [address] [place] [address] 05/22/2024 10:45 AM LEAD SHIPPER - 05/22/2024 11:15 AM LEAD SHIPPER Surgery [facility] Endoscopy [address] [place] [address] Nikolay Boucher MD [address] [place] [address] EGD Scheduled Procedures Name Priority Associated Diagnoses Date/Ti pr ESOPHAGOGASTRODUODENOSCOPY Crohn's disease of both small and large intestine with intestinal obstruction (HCC) 05/22/2024 10:45 AM LEAD SHIPPER documented as of this encounter Visit Diagnoses Diagnosis Regional enteritis of small intestine with large intestine (HCC) Regional enteritis of small intestine with large intestine Anemia Unspecified anemia Esophageal reflux Crohn's disease of both small and large intestine with intestinal obstruction (HCC) documented in this encounter
--- OUTSIDE RECORDS SUMMARY | 2024-05-18 22:19 | XMS_ITS | Encounter Summary ---
Author Organization [facility] Healthcare Address [address] [place] [address] Care Team Providers Care Change Control Coordinator Name Role Phone Unavailable Primary Care Provider Unavailabl e Encounter Details Date Type Department Care Team (Late st Contact Info) Description 10/22/2006 8:19 PM CDT - 10/22/2006 11:59 PM CDT Hospital Encounter [facility] Social History Tobacco Use Types Packs/Day Years Used Date Smoking Tobacco: Never Assessed Sex and Gender Information Value Date Recorded Sex Assigned at Not on file Legal Sex Male 1:20 AM MAGISTERIAL DISTRICT JUDGE Gender Identity Not on file Sexual Orientation Not on file documented as of this encounter Plan of Treatment Upcoming Encounters Date Type Department Care Team (Late st Contact Info) Description 05/22/2024 10:45 AM MAGISTERIAL DISTRICT JUDGE Hospital Encounter [facility] Endoscopy [address] [place] [address] Nikolay Boucher MD [address] [place] [address] 05/22/2024 10:45 AM MAGISTERIAL DISTRICT JUDGE - 05/22/2024 11:15 AM MAGISTERIAL DISTRICT JUDGE Surgery [facility] End[place] [address] [place] [address] Nikolay Boucher MD [address] [place] [address] EGD Scheduled Procedures Name Priority Associated Diagnoses Date/Ti me ESOPHAGOGASTRODUODENOSCOPY Crohn's disease of both small and large intestine with intestinal obstruction (HCC) 05/22/2024 10:45 AM MAGISTERIAL DISTRICT JUDGE documented as of this encounter Visit Diagnoses Not on filedocumented in this encounter
--- OUTSIDE RECORDS SUMMARY | 2024-05-18 22:19 | XMS_ITS | Encounter Summary ---
Author Organization [facility] Healthcare Address [address] [place] [address] Care Team Providers Care Asbestos Brake Lining Finisher Name Role Phone Unavailable Primary Care Provider Unavailabl e Encounter Details Date Type Department Care Team (Late st Contact Info) Description 05/02/2007 2:58 PM ADVERTISING DISPATCH CLERK - 05/02/2007 11:59 PM ADVERTISING DISPATCH CLERK Hospital Encounter [facility] Social History Tobacco Use Types Packs/Day Years Used Date Smoking Tobacco: Never Assessed Sex and Gender Information Value Date Recorded Sex Assigned at Not on file Legal Sex Male 1:20 AM ADVERTISING DISPATCH CLERK Gender Identity Not on file Sexual Orientation Not on file documented as of this encounter Plan of Treatment Upcoming Encounters Date Type Department Care Team (Late st Contact Info) Description 05/22/2024 10:45 AM ADVERTISING DISPATCH CLERK Hospital Encounter [facility] Endoscopy [address] [place] [address] Nikolay Boucher MD [address] [place] [address] 05/22/2024 10:45 AM ADVERTISING DISPATCH CLERK - 05/22/2024 11:15 AM ADVERTISING DISPATCH CLERK Surgery [facility] Endoscopy [address] [place] [address] Nikolay Boucher MD [address] [place] [address] EGD Scheduled Procedures Name Priority Associated Diagnoses Date/Ti me ESOPHAGOGASTRODUODENOSCOPY Crohn's disease of both small and large intestine with intestinal obstruction (HCC) 05/22/2024 10:45 AM ADVERTISING DISPATCH CLERK documented as of this encounter Visit Diagnoses Not on filedocumented in this encounter
== END 2024-05-11 12:39 | disposition home or self-care (01) ==
PROVIDERS: Emergency Provider Nurse Practitioner Family; PCP Family Medicine
DX: L03.113 Cellulitis of right upper limb (principal); S61.431A Puncture wound without foreign body of right hand, initial encounter; I10 Essential (primary) hypertension; E78.2 Mixed hyperlipidemia; E66.9 Obesity, unspecified; Z68.27 Body mass index [BMI] 27.0-27.9, adult; N28.9 Disorder of kidney and ureter, unspecified; G62.9 Polyneuropathy, unspecified; J45.20 Mild intermittent asthma, uncomplicated; K50.90 Crohn's disease, unspecified, without complications; K21.9 Gastro-esophageal reflux disease without esophagitis; D51.9 Vitamin B12 deficiency anemia, unspecified; Z87.440 Personal history of urinary (tract) infections; Z86.16 Personal history of COVID-19; Z79.899 Other long term (current) drug therapy; W45.0XXA Nail entering through skin, initial encounter
CPT/HCPCS: 36415; 73130; 80053; 85025; 96365; 96375; 99284; A9270; J0696; J2270